=== PATIENT | female | born 1950 | race Caucasian/White ===

== ENCOUNTER 2022-04-20 18:45 | Observation (INO) ==
[2022-04-20 19:29] LABS: Basophils # (auto) 0.07 K/uL (0-0.2); Basophils % (auto) 0.8 %; Eosinophils # (auto) 0.28 K/uL (0-0.50); Eosinophils % (auto) 3.4 %; Hematocrit (blood only) 30.5 % (34.1-44.9); Hemoglobin 10.5 g/dl (12.0-16.0); Immature Granulocytes # (auto) 0.07 K/uL (0.00-0.02); Immature Granulocytes % (auto) 0.8 %; Lymphocytes # (auto) 2.04 K/uL (1.2-3.4); Lymphocytes % (auto) 24.4 %; Mean Corpuscular Hemoglobin 30.3 pg (25.0-34.0); Mean Corpuscular Hgb Conc 34.4 g/dL (32.0-36.0); Mean Corpuscular Volume 87.9 fL (80.0-100.0); Monocytes # (auto) 0.36 K/uL (0.24-0.82); Monocytes % (auto) 4.3 %; Neutrophils # (auto) 5.53 K/uL (1.4-6.5); Neutrophils % (auto) 66.3 %; Platelet Count 256 K/uL (130-400); RDW Coefficient of Variation 12.2 % (11.5-14.5); RDW Standard Deviation 38.7 fL (36.4-46.3); Red Blood Count 3.47 M/uL (3.93-5.22); White Blood Count 8.35 K/ul (4.8-10.8)
--- NOTE | 2022-04-20 19:38 | XRay Report ---
XR chest 1V portable HISTORY: WEAKNESS, shortness of breath WITH EXERTION COMPARISON: Chest 04/15/2015. FINDINGS: No pneumothorax. No pleural effusions. The heart is normal in size. No new focal lung conso lidations to suggest pneumonia. No evidence for pulmonary edema. A stable 4 mm nodular density within the right lung apex. This may represent a calcified granuloma given the long-term stability. IMPRESSION: No significant change compared to the prior study. No acute process. ACT 112: Negative or not required by law. Electronically signed by: Bryan Freeman M.D. 04/20/2022 7:36 PM
[2022-04-20 19:51] LABS: Alanine Aminotransferase 8 U/L (7-52); Albumin Level 3.5 gm/dl (3.4-5.0); Alkaline Phosphatase 60 U/L (34-104); Anion Gap 8 (3-11); Aspartate Aminotransferase 11 U/L (13-39); BUN Creatinine Ratio 13.3 (10-20); Bilirubin,Total 0.3 mg/dl (0.2-1.0); Blood Urea Nitrogen 43 mg/dl (6-23); Calcium 9.2 mg/dl (8.5-10.1); Carbon Dioxide 31 mmol/L (21-32); Chloride 94 mmol/L (98-107); Est GFR (Non-African American) 13.8 ml/min; Globulin 3.5 gm/dl (2.5-4.0); Glucose 260 mg/dl (70-99(Fasting)); Sodium 133 mmol/L (136-145)
[2022-04-20 21:24] LABS: Appearance Urine Clear (Clear); Bacteria Urine Automated Negative (Negative); Bilirubin Urine Negative (Negative); Blood Urine Negative (Negative); Color Urine Yellow; Epithelial Cell Urine Auto >30 /lpf (0-5); Glucose Urine UA Trace (Negative); Ketones Urine Negative (Negative); Leukocyte Esterase Urine Negative (Negative); Nitrite Urine Negative (Negative); Protein Urine 3+ (Negative); RBC Urine Automated 0-4 /hpf (0-4); Specific Gravity Urine 1.016 (1.000-1.030); Urobilinogen Urine Negative (Negative); pH Urine 5.5 (4.5-7.5)
[2022-04-20] MEDS ORDERED: ACETAMINOPHEN 1,000 MG/100 ML VIAL IV STA (22:11)
[2022-04-20] MEDS ORDERED: POLYETHYLENE (MIRALAX) 17 GM PACK PO PRN (22:40)
[2022-04-20] MEDS ORDERED: ASPIRIN CHEW 324 MG PO STA (22:41)
[2022-04-20] MEDS ORDERED: DOCUSATE SODIUM 100 MG CAP PO PRN (22:45)
[2022-04-20] MEDS ORDERED: MELATONIN 3 MG TAB PO PRN (22:45)
[2022-04-20] MEDS ORDERED: GLUCOSE 40% GEL 15 GM TUBE PO PRN (22:50)
[2022-04-20] MEDS ORDERED: DEXTROSE 50% 50 ML SYRINGE IV PRN (22:50)
[2022-04-20] MEDS ORDERED: CARBOHYDRATES FOR HYPOGLYCEMIA PO PRN (22:50)
[2022-04-20] MEDS ORDERED: GLUCAGON FOR INJ 1 MG VIAL SQ PRN (22:50)
[2022-04-20] MEDS ORDERED: GLUCOSE 10 TAB/TUBE PO PRN (22:50)
[2022-04-20] MEDS ORDERED: PHARMACY GLYCEMIC MGMT CONSULT PRN (22:50)
--- NOTE | 2022-04-20 23:31 | History & Physical Report ---
Date of Service April 20, 2022 Assessment & Plan (1) Chest pain: Plan: - with exertion and associated with dizziness - no history of FL or CVA - ECG without ischemic changes, mild troponin elevation in the setting of ESRD - currently without chest pain at rest - will cycle troponin - given risk factors may warrant stress test - Cardiology consulted - TTE ordered - telemetry monitoring (2) Lumbar radiculopathy: Plan: - had recent admission due to weakness and pain in RLE - seen by NSG and recommended rehab - improved at rehab but still with weakness - continue outpatient medications - will get PT/OT evaluation now that patient is here - sensation and strength intact bilaterally (3) DM type 2 (diabetes mellitus, type 2): Plan: - on insulin 70/30 at 25 units at home - BG 260 on admission - ESRD on PD - FSG AC+HS - started on 15 units lantus qhs - SSI for now - adjust insulin as needed - diabetic diet (4) Hyperlipidemia: Plan: - continue statin (5) Hypothyroid: Plan: - continue levothyroxine (6) Obesity (BMI 30-39.9): Plan: - BMP 38 - noted (7) Anxiety: Plan: - continue citalopram (8) Hypertension: Plan: - continue home bp meds (9) ESRD (end stage renal disease) on dialysis: Plan: - on PD at home during the day - renal consulted Plan DVT ppx: heparin Code Status: Full Code Dispo: med/surg with telemetry Ashish Quevedo MD Hospitalist Medicine Admission and Anticipated Discharge Date Admission Date: 04/20/2022 History of Present Illness Chief Complaint: chest pain Primary Care Provider: NO PCP The patient is a 71 year old woman with pmh HTN, HLD, DM2, lumbar radiculopathy, hypothyroidism, obesity, ESRD on PD who presented with multiple weeks of chest pain with exertion. She reports that she was recently in a rehab due to lumbar radiculopathy with right leg pain and weakness. She did well at rehab and was discharged home with continued home PT. She reports taht while at the rehab and at home, she experienced a squeezing, pressure like chest pain when walking, which is limited due to her right leg issues. She reports associated dizziness and possibly shortness of breath. She denies nausea or vomiting, diarrhea, abdominal pain, LOC. She denies a personal history of FL or CVA and denies any cardiac issues in her parents, although her son has some reported cardiac issues. She reports the pain and dizziness subside with few minutes of rest. Her functional capacity is limited and is able to walk about 20 feet before symptom onset. In the ED, vitals were unremarkable. Labs were significant for Cr 3 (on home PD), Na 133, BG 260. She was admitted to medicine for further work up. Allergies Allergy/AdvReac Type Severity Reaction Status Date / Time meperidine Allergy Intermediate hypotension-passed Verified 04/20/22 21:09 out Home Medications Medication Instructions Recorded Confirmed Type amlodipine 10 mg tablet 10 mg PO DAILY 04/20/22 04/20/22 History bumetanide 2 mg tablet 4 mg PO BID 04/20/22 04/20/22 History cholecalciferol (vitamin D3) 125 125 mcg PO DAILY 04/20/22 04/20/22 History mcg (5,000 unit) tablet (Vitamin D3) citalopram 10 mg tablet 10 mg PO DAILY 04/20/22 04/20/22 History diclofenac sodium 1 % topical gel 2 g topical QID 04/20/22 04/20/22 History docusate sodium 100 mg capsule 100 mg PO BID 04/20/22 04/20/22 History gabapentin 100 mg capsule 200 mg PO TID 04/20/22 04/20/22 History insulin aspar prt-insulin aspart 25 unit subcut BIDM 04/20/22 04/20/22 History 100 unit/mL (70-30) subcutaneous soln (Novolog Mix 70-30 U-100 Insuln) levothyroxine 50 mcg tablet 50 mcg PO DAILYBB 04/20/22 04/20/22 History melatonin 10 mg tablet 10 mg PO HS 04/20/22 04/20/22 History metoprolol succinate 50 mg 50 mg PO DAILY 04/20/22 04/20/22 History tablet,extended release 24 hr omeprazole 40 mg capsule,delayed 40 mg PO QAM 04/20/22 04/20/22 History release oxybutynin chloride 10 mg 10 mg PO DAILY 04/20/22 04/20/22 History tablet,extended release 24 hr polyethylene glycol 3350 17 17 g PO BID 04/20/22 04/20/22 History gram/dose oral powder (Miralax) rosuvastatin 20 mg tablet 20 mg PO DAILY 04/20/22 04/20/22 History tramadol 50 mg tablet 50 mg PO Q4H PRN Pain 04/20/22 04/20/22 History Past Med/Surg History Social History Smoking Status: Never smoker Feels Safe at Home: Yes Review of Systems Review of Systems: All systems reviewed & are unremarkable except as noted in Subjective Physical Exam Constitutional: WD/WN, vitals as above + obese and comfortable; no acute distress Eyes: PERRL, conjunctivae normal, anicteric sclerae ENMT: external ear and nose normal, oropharynx normal Neck: trachea midline, no thyromegaly Respiratory: normal respiratory effort, lungs clear to auscultation Cardiovascular: RRR, no murmur, no edema Gastrointestinal (Abdomen): normal bowel sounds, soft, nontender, no hepatosplenomegaly peritoneal dialysis catheter in LUQ, no erythema or drainage Musculoskeletal: no cyanosis or clubbing, extremities motor strength 5/5 Skin: no rashes, warm and dry Neurologic: patellar DTR's 2+ bilat, sensation intact and PERRL, EOMI, accommodation nl, no face palsy, no dysarthria Psychiatric: A+Ox3, euthymic affect Results & Data Results & Data ([facility]) Vital Signs (Past 12 Hours) Vital Signs Temp Pulse Pulse Resp BP BP Pulse Ox 04/20/22 23:13 66 18 126/66 98 04/20/22 22:00 68 18 148/83 H 97 04/20/22 20:34 69 12 142/75 H 95 04/20/22 18:49 37 C 77 22 145/77 H 96 O2 Del Method 04/20/22 23:13 Room Air 04/20/22 22:00 Room Air 04/20/22 20:34 Room Air 04/20/22 18:49 Room Air Laboratory Results Short CBC 04/20/22 Range/Units 19:16 WBC 8.35 (4.8-10.8) K/ul Hgb 10.5 L (12.0-16.0) g/dl Hct 30.5 L (34.1-44.9) % Plt Count 256 (130-400) K/uL BMP 04/20/22 19:16 Sodium 133 L Potassium 4.0 Chloride 94 L Carbon Dioxide 31 BUN 43 H Creatinine 3.24 H Glucose 260 H Calcium 9.2 Liver Function 04/20/22 Range/Units 19:16 Total Bilirubin 0.3 (0.2-1.0) mg/dl AST 11 L (13-39) U/L ALT 8 (7-52) U/L Alkaline Phosphatase 60 (34-104) U/L Albumin 3.5 (3.4-5.0) gm/dl Urine 04/20/22 Range/Units 20:47 Urine Color Yellow Urine Appearance Clear (Clear) Urine pH 5.5 (4.5-7.5) Ur Specific [place] 1.016 (1.000-1.030) Urine Protein 3+ H (Negative) Urine Glucose (UA) Trace H (Negative) Diagnostic Findings Chest X-Ray 04/20/22 18:56 XR chest 1V portable HISTORY: WEAKNESS, shortness of breath WITH EXERTION COMPARISON: Chest 04/15/2015. FINDINGS: No pneumothorax. No pleural effusions. The heart is normal in size. No new focal lung consolidations to suggest pneumonia. No evidence for pulmonary edema. A stable 4 mm nodular density within the right lung apex. This may represent a calcified granuloma given the long-term stability. IMPRESSION: No significant change compared to the prior study. No acute process. ACT 112: Negative or not required by law. Electronically signed by: Bryan Freeman M.D. 04/20/2022 7:36 PM Medications Administered Current Inpatient Medications Amlodipine Besylate (Amlodipine Besylate 5 Mg Tab) 10 mg PO QAM [facility] Stop: 05/21/22 08:59 Aspirin (Aspirin 81 Mg Ectab) 81 mg PO QAM [facility] Stop: 05/21/22 08:59 Bumetanide (Bumetanide 1 Mg Tab) 4 mg PO BID17 [facility] Stop: 05/21/22 08:59 Citalopram Hydrobromide (Citalopram 20 Mg Tab) 10 mg PO QAM [facility] Stop: 05/21/22 08:59 Dextrose (Dextrose 50% 50 Ml Syringe) 25 - 50 ml IV UD PRN; Protocol PRN Reason: Hypoglycemia Protocol Stop: 05/20/22 22:49 Docusate Sodium (Docusate Sodium 100 Mg Cap) 100 mg PO BID PRN PRN Reason: constipation Stop: 05/21/22 08:59 Gabapentin (Gabapentin 100 Mg Cap) 200 mg PO TID [facility] Stop: 05/21/22 08:59 Glucagon (Glucagon For Inj 1 Mg Vial) 1 mg SQ UD PRN; Protocol PRN Reason: Hypoglycemia Protocol Stop: 05/20/22 22:49 Glucose (Glucose 40% Gel 15 Gm Tube) 15 - 30 gm PO UD PRN; Protocol PRN Reason: Hypoglycemia Protocol Stop: 05/20/22 22:49 Glucose (Glucose 10 Tab/Tube) 4 - 8 tab PO UD PRN; Protocol PRN Reason: Hypoglycemia Treatment Stop: 05/20/22 22:49 Heparin Sodium (Porcine) (Heparin Sod 5,000 Unit/0.5 Ml Vial) 7,500 units SQ Q8 [facility] Stop: 05/21/22 05:59 Insulin Aspart (Insulin Aspart Per Unit) 0 units SC ACHS [facility] Stop: 05/21/22 07:29 Insulin Glargine (Lantus Per Unit Charge) 15 units SQ HS [facility] Stop: 05/21/22 20:59 Levothyroxine Sodium (Levothyroxine Sodium 50 Mcg Tablet) 50 mcg PO DAILYBB [facility] Stop: 05/21/22 06:29 Melatonin (Melatonin 3 Mg Tab) 9 mg PO HS PRN PRN Reason: Sleep Stop: 05/20/22 22:44 Metoprolol Succinate (Metoprolol Succ 50mg Ext Rel Tab) 50 mg PO QAM [facility] Stop: 05/21/22 08:59 Miscellaneous (Carbohydrates For Hypoglycemia ) 15 - 30 gm PO UD PRN PRN Reason: Hypoglycemia Protocol Stop: 05/20/22 22:49 Miscellaneous Information (Pharmacy Glycemic Mgmt Consult) 1 each N/A UD PRN PRN Reason: Consult Stop: 05/20/22 22:49 Oxybutynin Chloride (Oxybutynin Chloride Xl 5 Mg Tabcr) 10 mg PO QAM [facility] Stop: 05/21/22 08:59 Polyethylene Glycol (Polyethylene (Miralax) 17 Gm Pack) 17 gm PO DAILY PRN PRN Reason: Constipation Stop: 05/20/22 22:39 Rosuvastatin Calcium (Rosuvastatin Calcium 20 Mg Tab) 20 mg PO QAM [facility] Stop: 05/21/22 08:59 Sennosides (Senna 8.6 Mg Tab) 17.2 mg PO QAM [facility] Stop: 05/21/22 08:59 Code Status & VTE Plan Code Status Full Code VTE Prophylaxis Plan VTE Prophylaxis will be ordered: Yes
--- NOTE | 2022-04-20 23:43 | Emergency Department Note ---
Impression & Plan Exertional chest pain, ESRD (end stage renal disease) on dialysis, Dyspnea on exertion ED Provider Note NAME: ANNETTE TRUJILLO AGE: 71 SEX: F ARRIVES VIA: Walk-In INFORMANT: Patient ED PROVIDER(S): Isma Bar MD CHIEF COMPLAINT: Exertional chest pain PLAN: Disposition: Admit MEDICAL DECISION MAKING: The patient is a pleasant 71-year-old woman with a past medical history of end- stage renal disease on home peritoneal dialysis, type 2 diabetes, hyperlipidemia, hypertension who presents to the emergency department via walk- in accompanied by family for evaluation of exertional chest pain and dyspnea that she reports has been ongoing for the past 2 weeks and fairly consistent in the setting of having less frequent symptoms when she was in rehab recently for back pain and ambulatory dysfunction. She denies any cough, congestion, fevers, GI or symptoms. She reports she feels bloated in her abdomen at times but reports she does not weigh herself regularly and so cannot say with confidence whether she is retaining fluid or not. On arrival the patient is chronically ill-appearing but no acute distress, afebrile stable vital signs. Exam is otherwise unremarkable. EKG without overt acute ischemia. Chest x-ray negative for acute c ardiopulmonary process. WBC and platelets within normal limits. H/H 10.5/30.5 without recent values for comparison. Chemistry without metabolic acidosis. Creatinine 3.2 in the setting of patient's known end-stage renal disease. LFTs without significant abnormality. High-sensitivity troponin 6.8, within normal limits. UA without convincing evidence of infection. Given patient's report of consistent exertional chest pain reasonable to proceed with admission for further cardiac evaluation. Patient was given full dose aspirin. Case was discussed with Dr. Quevedo, [facility] hospitalist, who will evaluate the patient for admission. Triage Nursing notes reviewed and agree them. Prior medical records reviewed Vital Signs: reviewed and remarkable for no significant abnormalities Differential diagnosis: Cardiac ischemia, aortic dissection, pulmonary embolism, pneumothorax, pneumonia, pericarditis, myocarditis, esophageal rupture, GERD, cholecystitis, pancreatitis, musculoskeletal, as well as other pathologies. ER treatment provided: See below. Diagnostics interpreted by me: ECG: Normal sinus rhythm, 76 bpm, nonspecific ST and T wave abnormality, no overt ST elevation or depression, QTC 470, QRS 90 Cardiac Monitoring: An order for continuous cardiac monitoring was placed and demonstrated Normal sinus rhythm, 76 bpm, no ectopy. Laboratory studies: See below Imaging studies: See below Consultation(s): Dr. Quevedo, [facility] hospitalist. HPI: The patient is a pleasant 71-year-old woman with a past medical history of end-stage renal disease on home peritoneal dialysis, type 2 diabetes, hyperlipidemia, hypertension who presents to the emergency department via walk- in accompanied by family for evaluation of exertional chest pain and dyspnea that she reports has been ongoing for the past 2 weeks and fairly consistent in the setting of having less frequent symptoms when she was in rehab recently for back pain and ambulatory dysfunction. She denies any cough, congestion, fevers, GI or symptoms. She reports she feels bloated in her abdomen at times but reports she does not weigh herself regularly and so cannot say with confidence whether she is retaining fluid or not. ROS: See above HPI for pertinent positives & negatives. A total of 10 systems reviewed and were otherwise negative. VITALS:See Below PHYSICAL EXAMINATION: GENERAL: Awake, alert, chronically ill-appearing, in no distress HENT: Normocephalic, atraumatic. Oropharynx unremarkable. EYES: Normal conjunctiva. Sclera non-icteric. NECK: Supple. No nuchal rigidity. FROM. No JVD. RESPIRATORY: Clear to auscultation. CARDIAC: Regular rate, normal rhythm. Extremities warm and well perfused. Pulses equal. ABDOMEN: Soft, non-distended. No tenderness to palpation. No rebound or guarding. No masses. RECTAL: Deferred. MUSCULOSKELETAL: Chest examination reveals no tenderness. The back is symmetrical on inspection without obvious abnormality. There is no CVA tenderness to palpation. No joint edema. LOWER EXTREMITIES: Calves are equal size bilaterally and non-tender. Scant BLE edema. No discoloration. NEURO: Normal sensorium. No sensory or motor deficits noted. SKIN: No rash or jaundice noted. Isma Bar MD Past Med/Surg History Medical History Diabetic neuropathy DM type 2 (diabetes mellitus, type 2) ESRD (end stage renal disease) on dialysis GERD (gastroesophageal reflux disease) Hyperlipidemia Hypertension Lumbar radiculopathy Peritoneal dialysis catheter in place Family History Other Family history non-contributory Social History Smoking Status: Never smoker Feels Safe at Home: Yes Allergies Allergies Allergy/AdvReac Type Severity Reaction Status Date / Time meperidine Allergy Intermediate hypotension-passed Verified 04/20/22 21:09 out Home Meds Home Medications Medication Instructions Recorded Confirmed amlodipine 10 mg tablet 10 mg PO DAILY 04/20/22 04/20/22 bumetanide 2 mg tablet 4 mg PO BID 04/20/22 04/20/22 cholecalciferol (vitamin D3) 125 125 mcg PO DAILY 04/20/22 04/20/22 mcg (5,000 unit) tablet (Vitamin D3) citalopram 10 mg tablet 10 mg PO DAILY 04/20/22 04/20/22 diclofenac sodium 1 % topical gel 2 g topical QID 04/20/22 04/20/22 docusate sodium 100 mg capsule 100 mg PO BID 04/20/22 04/20/22 gabapentin 100 mg capsule 200 mg PO TID 04/20/22 04/20/22 insulin aspar prt-insulin aspart 25 unit subcut BIDM 04/20/22 04/20/22 100 unit/mL (70-30) subcutaneous soln (Novolog Mix 70-30 U-100 Insuln) levothyroxine 50 mcg tablet 50 mcg PO DAILYBB 04/20/22 04/20/22 melatonin 10 mg tablet 10 mg PO HS 04/20/22 04/20/22 metoprolol succinate 50 mg 50 mg PO DAILY 04/20/22 04/20/22 tablet,extended release 24 hr omeprazole 40 mg capsule,delayed 40 mg PO QAM 04/20/22 04/20/22 release oxybutynin chloride 10 mg 10 mg PO DAILY 04/20/22 04/20/22 tablet,extended release 24 hr polyethylene glycol 3350 17 17 g PO BID 04/20/22 04/20/22 gram/dose oral powder (Miralax) rosuvastatin 20 mg tablet 20 mg PO DAILY 04/20/22 04/20/22 tramadol 50 mg tablet 50 mg PO Q4H PRN Pain 04/20/22 04/20/22 Results & Data (ED) Vital Signs Vital Signs - 24 hr 04/20/22 18:49 04/20/22 20:34 04/20/22 22:00 Temperature 37 C Temperature Source Temporal Artery Scan Pulse Rate 77 Pulse Rate [Finger] 69 68 Respiratory Rate 22 12 18 Respiratory Effort / Characteristics Non-Labored Spontaneous Respiratory Depth Normal Respiratory Pattern Regular Blood Pressure 145/77 H Blood Pressure [Right Arm] 142/75 H 148/83 H Blood Pressure Mean 99 Blood Pressure Mean [Right Arm] 97 104 Pulse Oximetry 96 95 97 Oxygen Delivery Method Room Air Room Air Room Air Sepsis Recent Fever Within 48 Hours No Sepsis New/Unexplained Change in Mental Status No Sepsis Action Taken by Nursing No Action Required Laboratory Data Attestation: I reviewed the patient's lab results. Result diagrams: 04/20/22 19:16 04/20/22 19:16 Lab Results 04/20/22 04/20/22 04/20/22 Range/Units 19:16 19:16 19:16 WBC 8.35 (4.8-10.8) K/ul RBC 3.47 L (3.93-5.22) M/uL Hgb 10.5 L (12.0-16.0) g/dl Hct 30.5 L (34.1-44.9) % MCV 87.9 (80.0-100.0) fL MCH 30.3 (25.0-34.0) pg MCHC 34.4 (32.0-36.0) g/dL RDW Std Deviation 38.7 (36.4-46.3) fL RDW Coeff of [place] 12.2 (11.5-14.5) % Plt Count 256 (130-400) K/uL MPV 10.0 (9.4-12.3) fL Immature Gran % (Auto) 0.8 % Neut % (Auto) 66.3 % Lymph % (Auto) 24.4 % [place] % (Auto) 4.3 % Eos % (Auto) 3.4 % Baso % (Auto) 0.8 % Neut # (Auto) 5.53 (1.4-6.5) K/uL Lymph # (Auto) 2.04 (1.2-3.4) K/uL [place] # (Auto) 0.36 (0.24-0.82) K/uL Eos # (Auto) 0.28 (0-0.50) K/uL Baso # (Auto) 0.07 (0-0.2) K/uL Immature Gran # (Auto) 0.07 H (0.00-0.02) K/uL Sodium 133 L (136-145) mmol/L Potassium 4.0 (3.5-5.1) mmol/L Chloride 94 L (98-107) mmol/L Carbon Dioxide 31 (21-32) mmol/L Anion Gap 8 (3-11) BUN 43 H (6-23) mg/dl Creatinine 3.24 H (0.6-1.2) mg/dl Est Cr Clr Drug Dosing Not Reportable Est GFR ( Amer) 16.0 ml/min Est GFR (Non-Af Amer) 13.8 ml/min BUN/Creatinine Ratio 13.3 (10-20) Glucose 260 H (70-99(Fasting)) mg/dl Calcium 9.2 (8.5-10.1) mg/dl Total Bilirubin 0.3 (0.2-1.0) mg/dl AST 11 L (13-39) U/L ALT 8 (7-52) U/L Alkaline Phosphatase 60 (34-104) U/L Troponin I High Sens 6.8 (0-14) pg/ml Total Protein 7.0 (6.0-8.3) gm/dl Albumin 3.5 (3.4-5.0) gm/dl Globulin 3.5 (2.5-4.0) gm/dl Albumin/Globulin Ratio 1.0 (0.9-2) Urine Color Urine Appearance (Clear) Urine pH (4.5-7.5) Ur Specific [place] (1.000-1.030) Urine Protein (Negative) Urine Glucose (UA) (Negative) Urine Ketones (Negative) Urine Blood (Negative) Urine Nitrite (Negative) Urine Bilirubin (Negative) Urine Urobilinogen (Negative) Ur Leukocyte Esterase (Negative) Urine WBC (Auto) (0-5) /hpf Urine RBC (Auto) (0-4) /hpf U Hyaline Cast (Auto) (0-5) /lpf U Epithel Cells (Auto) (0-5) /lpf Urine Bacteria (Auto) (Negative) 04/20/22 Range/Units 20:47 WBC (4.8-10.8) K/ul RBC (3.93-5.22) M/uL Hgb (12.0-16.0) g/dl Hct (34.1-44.9) % MCV (80.0-100.0) fL MCH (25.0-34.0) pg MCHC (32.0-36.0) g/dL RDW Std Deviation (36.4-46.3) fL RDW Coeff of [place] (11.5-14.5) % Plt Count (130-400) K/uL MPV (9.4-12.3) fL Immature Gran % (Auto) % Neut % (Auto) % Lymph % (Auto) % [place] % (Auto) % Eos % (Auto) % Baso % (Auto) % Neut # (Auto) (1.4-6.5) K/uL Lymph # (Auto) (1.2-3.4) K/uL [place] # (Auto) (0.24-0.82) K/uL Eos # (Auto) (0-0.50) K/uL Baso # (Auto) (0-0.2) K/uL Immature Gran # (Auto) (0.00-0.02) K/uL Sodium (136-145) mmol/L Potassium (3.5-5.1) mmol/L Chloride (98-107) mmol/L Carbon Dioxide (21-32) mmol/L Anion Gap (3-11) BUN (6-23) mg/dl Creatinine (0.6-1.2) mg/dl Est Cr Clr Drug Dosing Est GFR ( Amer) ml/min Est GFR (Non-Af Amer) ml/min BUN/Creatinine Ratio (10-20) Glucose (70-99(Fasting)) mg/dl Calcium (8.5-10.1) mg/dl Total Bilirubin (0.2-1.0) mg/dl AST (13-39) U/L ALT (7-52) U/L Alkaline Phosphatase (34-104) U/L Troponin I High Sens (0-14) pg/ml Total Protein (6.0-8.3) gm/dl Albumin (3.4-5.0) gm/dl Globulin (2.5-4.0) gm/dl Albumin/Globulin Ratio (0.9-2) Urine Color Yellow Urine Appearance Clear (Clear) Urine pH 5.5 (4.5-7.5) Ur Specific [place] 1.016 (1.000-1.030) Urine Protein 3+ H (Negative) Urine Glucose (UA) Trace H (Negative) Urine Ketones Negative (Negative) Urine Blood Negative (Negative) Urine Nitrite Negative (Negative) Urine Bilirubin Negative (Negative) Urine Urobilinogen Negative (Negative) Ur Leukocyte Esterase Negative (Negative) Urine WBC (Auto) 1-5 (0-5) /hpf Urine RBC (Auto) 0-4 (0-4) /hpf U Hyaline Cast (Auto) 1-5 (0-5) /lpf U Epithel Cells (Auto) >30 H (0-5) /lpf Urine Bacteria (Auto) Negative (Negative) Administered Medications Insulin Aspart (Insulin Aspart Per Unit) 0 units SC Q6 [facility] Stop: 05/21/22 01:29 Last Admin: 04/21/22 02:19 Dose: 1 units Documented By: MALLORY Co-signed By: AW Discontinued Medications Acetaminophen (Acetaminophen 325 Mg Tab) Confirm Administered Dose 650 mg .ROUTE .STK-MED ONE Stop: 04/21/22 00:52 Last Admin: 04/21/22 00:55 Dose: 650 mg Documented By: MALLORY Aspirin (Aspirin Chew 324 Mg) 324 mg PO NOW STA Stop: 04/20/22 22:42 Last Admin: 04/20/22 22:51 Dose: 324 mg Documented By: LESA [facility] 1,000 mg in 100 mls @ 400 mls/hr IV NOW STA Stop: 04/20/22 22:25 Last Infusion: 04/20/22 22:43 Dose: 0 mls/hr Documented By: Admin: 04/20/22 22:18 Dose: 400 mls/hr Documented By: LESA Insulin Glargine (Lantus Per Unit Charge) 15 units SQ ONE ONE Stop: 04/21/22 01:31 Last Admin: 04/21/22 02:19 Dose: 15 units Documented By: MALLORY Co-signed By: MERCY Imaging Data Radiologist's Impression: Chest X-Ray 04/20/22 18:56 XR chest 1V portable HISTORY: WEAKNESS, shortness of breath WITH EXERTION COMPARISON: Chest 04/15/2015. FINDINGS: No pneumothorax. No pleural effusions. The heart is normal in size. No new focal lung consolidations to suggest pneumonia. No evidence for pulmonary edema. A stable 4 mm nodular density within the right lung apex. This may repr esent a calcified granuloma given the long-term stability. IMPRESSION: No significant change compared to the prior study. No acute process. ACT 112: Negative or not required by law. Electronically signed by: Bryan Freeman M.D. 04/20/2022 7:36 PM Discharge Plan Visit Data Chief Complaint: Illness Stated Complaint: WEAKNESS, SOB WITH EXERTION ED Provider: Isma Bar Discharge Problem: Exertional chest pain, ESRD (end stage renal disease) on dialysis, Dyspnea on exertion Patient Disposition: Admitted As Inpatient Discharge Instructions Interventions: ED Discharge Assessment Last Done: 04/21/22 02:20
[2022-04-21] MEDS ORDERED: ACETAMINOPHEN 325 MG TAB ONE (00:51)
[2022-04-21] MEDS ORDERED: LANTUS PER UNIT CHARGE SQ ONE ×2 (01:30→16:30)
[2022-04-21] MEDS: INSULIN ASPART PER UNIT SC SCH ×5 (02:19→21:04)
[2022-04-21 04:52] LABS: Basophils # (auto) 0.07 K/uL (0-0.2); Basophils % (auto) 0.9 %; Eosinophils # (auto) 0.28 K/uL (0-0.50); Eosinophils % (auto) 3.5 %; Hematocrit (blood only) 27.4 % (34.1-44.9); Hemoglobin 9.6 g/dl (12.0-16.0); Immature Granulocytes # (auto) 0.04 K/uL (0.00-0.02); Immature Granulocytes % (auto) 0.5 %; Lymphocytes # (auto) 2.23 K/uL (1.2-3.4); Lymphocytes % (auto) 27.9 %; Mean Corpuscular Hemoglobin 30.6 pg (25.0-34.0); Mean Corpuscular Volume 87.3 fL (80.0-100.0); Mean Platelet Volume 9.9 fL (9.4-12.3); Monocytes # (auto) 0.46 K/uL (0.24-0.82); Monocytes % (auto) 5.8 %; Neutrophils # (auto) 4.91 K/uL (1.4-6.5); Neutrophils % (auto) 61.4 %; Platelet Count 213 K/uL (130-400); RDW Standard Deviation 38.5 fL (36.4-46.3); Red Blood Count 3.14 M/uL (3.93-5.22); White Blood Count 7.99 K/ul (4.8-10.8)
[2022-04-21 05:15] LABS: Albumin Level 3.1 gm/dl (3.4-5.0); BUN Creatinine Ratio 13.1 (10-20); Bilirubin,Total 0.2 mg/dl (0.2-1.0); Chol HDL Ratio 4.4 (0-5); Creatinine Clr Calc Pharmacy 18.3 ml/min; Est GFR (African American) 16.2 ml/min; Magnesium 1.9 mg/dl (1.7-2.4); Phosphorus 4.2 mg/dl (2.5-4.9); Potassium 4.1 mmol/L (3.5-5.1); Total Protein 6.1 gm/dl (6.0-8.3)
[2022-04-21] MEDS: HEPARIN SOD 5,000 UNIT/0.5 ML VIAL SQ SCH ×3 (06:35→22:39)
[2022-04-21] MEDS: LEVOTHYROXINE SODIUM 50 MCG TABLET PO SCH (06:36)
[2022-04-21 07:20] LABS: Estimated Average Glucose 223 mg/dl; Hemoglobin A1C 9.4 % (4.5-5.6)
--- NOTE | 2022-04-21 07:37 | Nephrology Consultation ---
Date of Consultation April 21, 2022 Assessment & Plan (1) ESRD (end stage renal disease) on dialysis: on CCPD for 4 x 2L cycles over 8hr all 2.5% w/ no LBF, no MDE; moved recently to this area and transitioning between units; dialyzed most recently w/ Dr Almanzar, [facility] unit [facility] [place]. wishes to join [facility] for PD. >plan to resume PT this evening - orders in -continue her bumex OP dose -continue bowel regimen History of Present Illness Reason for Consultation: ESRD on PD Requesting Physician: Dr Reid Attending Physician: Tien Glez MD History of Present Illness 71 y/o F whom I'm asked to see for dialysis needs is under observation for evaluation of several weeks of exertional chest pain and exertional dyspnea. PMH includes ESRD on PD, HTN, DM, lumbar radiculopathy/RLE weakness, hypothyroid, class 2 obesity, HL, per her report mild cognitive impairment/memory challenges. Home dialysis unit/ rx as below. Admitted recently to rehab for RLE pain/weakness related to back issues> d/c home w/ PT. Tells me she has dypsnea and vertigo sx w/ waking from living room to bedroom at home. nonradiating squeezing substernal chest pain not affected by activity. non radiating. moved her bowels w/o issue this am. No n/v/abd pain/diarrhea, no falls, no palpitations, no edema. No change in voiding habits. Dialysis has been going well; no issues; she does her treatments by day usually b/c she wants family nearby if there are alarms Cardiology evaluated the patient and plans TTE and likely OP stress test; her troponins negative x 2 and no ischemic changes on ECG. Allergies Allergy/AdvReac Type Severity Reaction Status Date / Time meperidine Allergy Intermediate hypotension-passed Verified 04/20/22 21:09 out Home Medications Medication Instructions Recorded Confirmed Type amlodipine 10 mg tablet 10 mg PO DAILY 04/20/22 04/20/22 History bumetanide 2 mg tablet 4 mg PO BID 04/20/22 04/20/22 History cholecalciferol (vitamin D3) 125 125 mcg PO DAILY 04/20/22 04/20/22 History mcg (5,000 unit) tablet (Vitamin D3) citalopram 10 mg tablet 10 mg PO DAILY 04/20/22 04/20/22 History diclofenac sodium 1 % topical gel 2 g topical QID 04/20/22 04/20/22 History docusate sodium 100 mg capsule 100 mg PO BID 04/20/22 04/20/22 History gabapentin 100 mg capsule 200 mg PO TID 04/20/22 04/20/22 History insulin aspar prt-insulin aspart 25 unit subcut BIDM 04/20/22 04/20/22 History 100 unit/mL (70-30) subcutaneous soln (Novolog Mix 70-30 U-100 Insuln) levothyroxine 50 mcg tablet 50 mcg PO DAILYBB 04/20/22 04/20/22 History melatonin 10 mg tablet 10 mg PO HS 04/20/22 04/20/22 History metoprolol succinate 50 mg 50 mg PO DAILY 04/20/22 04/20/22 History tablet,extended release 24 hr omeprazole 40 mg capsule,delayed 40 mg PO QAM 04/20/22 04/20/22 History release oxybutynin chloride 10 mg 10 mg PO DAILY 04/20/22 04/20/22 History tablet,extended release 24 hr polyethylene glycol 3350 17 17 g PO BID 04/20/22 04/20/22 History gram/dose oral powder (Miralax) rosuvastatin 20 mg tablet 20 mg PO DAILY 04/20/22 04/20/22 History tramadol 50 mg tablet 50 mg PO Q4H PRN Pain 04/20/22 04/20/22 History Patient History Medical History Diabetic neuropathy DM type 2 (diabetes mellitus, type 2) ESRD (end stage renal disease) on dialysis GERD (gastroesophageal reflux disease) Hyperlipidemia Hypertension Lumbar radiculopathy Peritoneal dialysis catheter in place Surgical History (Updated 04/21/22 @ 18:14 by Bozena Farias MD, PhD) 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 Family History Other Family history non-contributory Social History Smoking Status: Never smoker Hx Alcohol Use: No Hx Substance Use: No Preferred Language: Occitan Communication Ability: Effective Hair Tinter Required: No Beliefs That Will Affect Care: None marital status: / Current Living Situation: Family Current Living Situation Comment: son and daughter in law Other Information That Helps Us Care for You: No Feels Safe at Home: Yes Safety Concerns: Feels Safe At This Time Assistive Devices: Scooter/Electric Scooter, Walker and Wheelchair Review of Systems Review of Systems: All systems reviewed & are unremarkable except as noted in HPI & below Physical Exam Constitutional: well developed and well nourished Eyes: EOM intact bilaterally ENMT: Ears: no external ear abnormality Nose: no external nose abnormality Mouth: + dry oral mucous membranes Neck: no nuchal rigidity Respiratory: normal respiratory effort Auscultation: + diminished lung sounds Cardiovascular: Rate/Rhythm: regular rate and regular rhythm Extremities: + edema (trace) Gastrointestinal (Abdomen): Inspection/Auscultation: abdomen normal to inspection (PD catheter present) and normal bowel sounds P ercussion/Palpation: abdomen soft; abdomen nontender Musculoskeletal: Extremities: strength 5/5 throughout Skin: no rashes, warm and dry (remote scars R nasal orbit and palate) Neurologic: babcock, fluent speech, no tremor Psychiatric: Orientation: oriented to person and oriented to place Speech: normal rate/rhythm/volume of speech Insight: + limited insight Results & Data ([facility]) Vital Signs (Past 12 Hours) Vital Signs Temp Pulse Resp BP Pulse Ox O2 Del Method 04/21/22 05:27 37.0 C 68 14 164/76 H 97 Room Air 04/21/22 02:23 97 Room Air 04/21/22 02:00 66 48 H 148/109 H 97 Room Air 04/20/22 23:13 66 18 126/66 98 Room Air 04/20/22 22:00 68 18 148/83 H 97 Room Air 04/20/22 20:34 69 12 142/75 H 95 Room Air Laboratory Results 04/21/22 04:36 04/21/22 04:36 Diagnostic Findings cxr > No pneumothorax. No pleural effusions. The heart is normal in size. No new focal lung consolidations to suggest pneumonia. No evidence for pulmonary edema. A stable 4 mm nodular density within the right lung apex. This may represent a calcified granuloma given the long-term stability.
--- NOTE | 2022-04-21 08:52 | Cardiology Consultation ---
Date of Consultation April 21, 2022 Assessment & Plan (1) Exertional chest pain: (2) Dyspnea on exertion: (3) Hypertension: (4) Hyperlipidemia: (5) DM type 2 (diabetes mellitus, type 2): (6) ESRD (end stage renal disease) on dialysis: Plan 71-year-old female with multiple cardiac risk factors referred for hospitalization, evaluation of exertional chest pain associated with shortness of breath and dizziness. EKG without acute change. High-sensitivity troponin I negative x2. Chest x-ray without acute process. Blood pressure moderately elevated, currently 171/84. Patient unable to ambulate adequately for exercise stress testing. Recommendations: Serial cardiac enzymes Resting echocardiography Add aspirin 81 mg/day Add Imdur 30 mg daily in the morning Switch rosuvastatin 20 mg/day to atorvastatin 40 mg/day, RE: end-stage renal dysfunction Continue metoprolol and amlodipine Pharmacological (Lexiscan) nuclear stress test, likely as an outpatient Further recommendations pending the above, evaluation by Dr. Angeles, ongoing course. Supervising Physician Co-Signing Physician Notes Patient seen and examined with Tae Navarro PA-C. Agree with findings and assessment as above. 2D echocardiogram is unremarkable. Agree with above recommendations and treating for hypertensive urgency at this time. History of Present Illness Reason for Consultation: Chest pain Requesting Physician: Emy Attending Physician: Newton History of Present Illness Ms. Mai Richardson (aka Mai "Asya" Amarilys Mathias with [facility] ) is a 71-year-old female who is being seen today for evaluation of exertional chest pain. The patient notes being assigned a Weight Recorder following hospitalization and a rehabilitation stay. She notes passing along information to the director of casework department about experiencing chest tightness when walking to bed at night that is associated with shortness of breath and dizziness. "Really more dizziness than anything." Notes being very inactive due to right leg weakness and the right knee giving out resulting in multiple falls. She notes her walking to bed at night is her most strenuous activity. Notes having had similar symptoms of chest tightness and shortness of breath leading cardiac work-up including pharmacological stress testing in 2014 without evidence of pharmacologically induced myocardial ischemia. Work-up in the ER included a EKG revealing normal sinus rhythm with nonspecific ST-T wave changes, QTC 470 ms. High-sensitivity troponin I negative x2 at 6.8 and 7.3 PG/mL. Chest x-ray without acute process. Resting/nocturnal chest pain. No palpitations. No resting dyspnea. No orthopnea or PND to accompany lower extremity peripheral edema. No near syncope or syncope. No fevers or chills. No melena or hemato chezia. Patient denies history of CAD, GA, CHF, arrhythmia, rheumatic fever, or scarlet fever. 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 Father with leukemia. Sister with uterine cancer. Sister with breast cancer. Brother with ? CAD. Multiple aunts with ischemic heart disease. Social History: Lifelong non-smoker. No significant alcohol. No illegal drug use. 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 Notes being x2, losing both husbands within a year. Allergies Allergy/AdvReac Type Severity Reaction Status Date / Time meperidine Allergy Intermediate hypotension-passed Verified 04/20/22 21:09 out Home Medications Medication Instructions Recorded Confirmed Type amlodipine 10 mg tablet 10 mg PO DAILY 04/20/22 04/20/22 History bumetanide 2 mg tablet 4 mg PO BID 04/20/22 04/20/22 History cholecalciferol (vitamin D3) 125 125 mcg PO DAILY 04/20/22 04/20/22 History mcg (5,000 unit) tablet (Vitamin D3) citalopram 10 mg tablet 10 mg PO DAILY 04/20/22 04/20/22 History diclofenac sodium 1 % topical gel 2 g topical QID 04/20/22 04/20/22 History docusate sodium 100 mg capsule 100 mg PO BID 04/20/22 04/20/22 History gabapentin 100 mg capsule 200 mg PO TID 04/20/22 04/20/22 History insulin aspar prt-insulin aspart 25 unit subcut BIDM 04/20/22 04/20/22 History 100 unit/mL (70-30) subcutaneous soln (Novolog Mix 70-30 U-100 Insuln) levothyroxine 50 mcg tablet 50 mcg PO DAILYBB 04/20/22 04/20/22 History melatonin 10 mg tablet 10 mg PO HS 04/20/22 04/20/22 History metoprolol succinate 50 mg 50 mg PO DAILY 04/20/22 04/20/22 History tablet,extended release 24 hr omeprazole 40 mg capsule,delayed 40 mg PO QAM 04/20/22 04/20/22 History release oxybutynin chloride 10 mg 10 mg PO DAILY 04/20/22 04/20/22 History tablet,extended release 24 hr polyethylene glycol 3350 17 17 g PO BID 04/20/22 04/20/22 History gram/dose oral powder (Miralax) rosuvastatin 20 mg tablet 20 mg PO DAILY 04/20/22 04/20/22 History tramadol 50 mg tablet 50 mg PO Q4H PRN Pain 04/20/22 04/20/22 History Patient History Medical History Diabetic neuropathy DM type 2 (diabetes mellitus, type 2) ESRD (end stage renal disease) on dialysis GERD (gastroesophageal reflux disease) Hyperlipidemia Hypertension Lumbar radiculopathy Peritoneal dialysis catheter in place Family History Other Family history non-contributory Social History Smoking Status: Never smoker Hx Alcohol Use: No Hx Substance Use: No Preferred Language: Uzbek Communication Ability: Effective Surface Plate Finisher Required: No Beliefs That Will Affect Care: None marital status: / Current Living Situation: Family Current Living Situation Comment: son and daughter in law Other Information That Helps Us Care for You: No Feels Safe at Home: Yes Safety Concerns: Feels Safe At This Time Assistive Devices: Scooter/Electric Scooter, Walker and Wheelchair Review of Systems Review of Systems: Review of Systems: Constitutional: No fevers, sweats, or night chills. Eyes: No amaurosis fugax HENT: Hard of hearing Pulmonary: Asthma. Cardiac: See above. GI/Abd: GERD. No dysphagia. No melena or hematochezia. : CKD, on peritoneal dialysis Vascular: No history of carotid disease. No history of AAA. Hematologic: No coagulation disorder. Musculoskeletal: Chronic back pain. Right knee pain. Right lower extremity weakness. Skin: No rash. Neurologic: See above. Female : Incontinence. Endocrine: DM. Complete Review of Systems is as stated above, negative, noncontributory Physical Exam Physical Exam: General: A&Ox3. NAD. Hard of hearing HENT: Normocephalic. Atraumatic. Eyes: PER. Conjunctiva pink, sclera clear. Neck: Transmitted systolic murmur versus bilateral carotid bruits. No JVD. No HJR. Heart: RRR. Grade 2 systolic ejection murmur heard throughout the precordium. No rub. PMI is nondisplaced. Lungs: Clear to auscultation. Abdomen: Peritoneal dialysis catheter. +BS. Soft. Nontender. No masses or organomegaly. Extremities: Minimal edema, nonpitting. No clubbing. No cyanosis. Limited neurological examination is without focal deficits. Pulses: radial=2/4, posterior tibial=2/4. Results & Data ([facility]) Vital Signs (Past 12 Hours) Vital Signs Temp Pulse Resp BP Pulse Ox O2 Del Method 04/21/22 07:43 70 18 171/84 H 97 Room Air 04/21/22 05:27 37.0 C 68 14 164/76 H 97 Room Air 04/21/22 02:23 97 Room Air 04/21/22 02:00 66 48 H 148/109 H 97 Room Air 04/20/22 23:13 66 18 126/66 98 Room Air 04/20/22 22:00 68 18 148/83 H 97 Room Air Laboratory Results Cardiac Enzymes 04/20/22 04/20/22 04/21/22 Range/Units 19:16 19:16 00:18 AST 11 L (13-39) U/L Troponin I High Sens 6.8 7.3 (0-14) pg/ml 04/21/22 Range/Units 04:36 AST 11 L (13-39) U/L Troponin I High Sens (0-14) pg/ml Lipids 04/21/22 Range/Units 04:36 Triglycerides 263 H (0-150) mg/dl Cholesterol 141 (0-200) mg/dl HDL Cholesterol 32 mg/dl Cholesterol/HDL Ratio 4.4 (0-5) CBC 04/20/22 04/21/22 Range/Units 19:16 04:36 WBC 8.35 7.99 (4.8-10.8) K/ul RBC 3.47 L 3.14 L (3.93-5.22) M/uL Hgb 10.5 L 9.6 L (12.0-16.0) g/dl Hct 30.5 L 27.4 L (34.1-44.9) % Plt Count 256 213 (130-400) K/uL Neut # (Auto) 5.53 4.91 (1.4-6.5) K/uL Lymph # (Auto) 2.04 2.23 (1.2-3.4) K/uL Page # (Auto) 0.36 0.46 (0.24-0.82) K/uL Eos # (Auto) 0.28 0.28 (0-0.50) K/uL Baso # (Auto) 0.07 0.07 (0-0.2) K/uL Comprehensive Metabolic Panel 04/20/22 04/21/22 Range/Units 19:16 04:36 Sodium 133 L 136 (136-145) mmol/L Potassium 4.0 4.1 (3.5-5.1) mmol/L Chloride 94 L 98 (98-107) mmol/L Carbon Dioxide 31 31 (21-32) mmol/L BUN 43 H 42 H (6-23) mg/dl Creatinine 3.24 H 3.20 H (0.6-1.2) mg/dl Glucose 260 H 95 (70-99(Fasting)) mg/dl Calcium 9.2 9.0 (8.5-10.1) mg/dl AST 11 L 11 L (13-39) U/L ALT 8 8 (7-52) U/L Alkaline Phosphatase 60 47 (34-104) U/L Total Protein 7.0 6.1 (6.0-8.3) gm/dl Albumin 3.5 3.1 L (3.4-5.0) gm/dl Intake and Output 04/20/22 04/21/22 04/21/22 22:59 06:59 14:59 Intake Total 100 / 100 Balance 100 / 100 Intake: IV 100 / 100 Acetaminophen 1,000 mg In 100 100 / 100 ml @ 400 mls/hr IV NOW STA Rx#: [id number] Other: Weight 98.3 kg 98.3 kg Weight Measurement Method Built in [facility] Built in [facility]
[2022-04-21] MEDS: BUMETANIDE 1 MG TAB PO SCH ×2 (08:59→16:52)
[2022-04-21] MEDS: OXYBUTYNIN CHLORIDE XL 5 MG TABCR PO SCH (08:59)
[2022-04-21] MEDS: METOPROLOL SUCC 50MG EXT REL TAB PO SCH (09:00)
[2022-04-21] MEDS ORDERED: ROSUVASTATIN CALCIUM 20 MG TAB PO SCH (09:00)
[2022-04-21] MEDS: GABAPENTIN 100 MG CAP PO SCH ×3 (09:00→21:05)
[2022-04-21] MEDS: SENNA 8.6 MG TAB PO SCH (09:01)
[2022-04-21] MEDS: amLODIPine BESYLATE 5 MG TAB PO SCH (09:01)
[2022-04-21] MEDS: CITALOPRAM 20 MG TAB PO SCH (09:01)
[2022-04-21] MEDS: ASPIRIN 81 MG ECTAB PO SCH (10:45)
[2022-04-21] MEDS: ISOSORBIDE MONO EXTENDED REL 30 MG TABCR PO SCH (10:45)
--- NOTE | 2022-04-21 12:17 | Pharmacy Report ---
Pharmacy Glycemic Short Note 2 - Date of Service April 21, 2022 - Glycemic Short BSG Results (Last 24 hours): 04/20/22 04/21/22 04/21/22 19:16 02:09 04:36 Glucose 260 H 95 POC Glucose 141 H 04/21/22 04/21/22 04/21/22 06:38 08:59 11:17 Glucose POC Glucose 108 H 121 H 120 H OUTPATIENT ANTIDIABETIC REGIMEN: * Novolog 70/30 25 units BID * A1c 9.4% 04/21/22- unreliable in the setting of PD ASSESSMENT: * Patient admitted with exertional chest pain, initially NPO, now ordered heart healthy/T2 Diet with lunch * BSGs have been controlled since admission, monitor with diet change * Continue current novolog parameters based on stress of 2 (weight/total outpatient insulin use) * 15 units of lantus given this AM, will order additional scale for dinner based on outpatient insulin use * overnight check PLAN FOR INPATIENT GLYCEMIC CONTROL: * Hold outpatient oral diabetes medications * Basal insulin * Lantus 15 units SQ this AM, 9-15 units with dinner * Bolus insulin * NovoLog per scale ACHS or Q6hrs while NPO * Goal Range: Low 110 mg/dL - High 140 mg/dL * Correction Factor: 25 mg/dL/unit * Nutritional / Prandial insulin per carb ratio of 1 unit per 8 grams CHO consumed
--- NOTE | 2022-04-21 13:42 | Hospitalist Progress Note ---
Date of Service April 21, 2022 Assessment & Plan (1) Chest pain: Plan: - with exertion and associated with dizziness - no history of VA or CVA - ECG without ischemic changes, mild troponin elevation in the setting of ESRD - currently without chest pain at rest Plan: Cardiology consulted; patient is started on aspirin 81 mg/day and Imdur 30 mg/day. Patient switched to Lipitor 40 mg p.o. daily. Continue on metoprolol and amlodipine for high blood pressure We will follow serial cardiac enzymes and echo Lexiscan likely as an outpatient. (2) Lumbar radiculopathy: Plan: - had recent admission due to weakness and pain in RLE - seen by NSG and recommended rehab - improved at rehab but still with weakness - continue outpatient medications - will get PT/OT evaluation now that patient is here - sensation and strength intact bilaterally (3) DM type 2 (diabetes mellitus, type 2): Plan: - on insulin 70/30 at 25 units at home - BG 260 on admission - ESRD on PD - FSG AC+HS - started on 15 units lantus qhs - SSI for now - adjust insulin as needed - diabetic diet (4) Hyperlipidemia: Plan: - continue statin (5) Hypothyroid: Plan: - continue levothyroxine (6) Obesity (BMI 30-39.9): Plan: - BMP 38 - noted (7) Anxiety: Plan: - continue citalopram (8) Hypertension: Plan: - continue home bp meds (9) ESRD (end stage renal disease) on dialysis: Plan: - on PD at home during the day - renal on board Plan DVT ppx: heparin Code Status: Full Code Dispo: med/surg with telemetry Admission and Anticipated Discharge Date Admission Date: April 20, 2022 Subjective Patient seen and examined at bedside. She is comfortable; not in any acute distress. She denies any chest pain at rest and at ambulation. Review of Systems Review of Systems: All systems reviewed & are unremarkable except as noted in Subjective Physical Exam Physical Exam: Constitutional:L WD/WN, vitals as a kamran + obese and comfortable; no ac layla distress Eyes: PERRL, conjunctiva e normal, anicteri c sclerae ENMT: external ear and n ose normal, oropha rynx normal Neck: trachea midline, n o thyromegaly Respiratory: normal respiratory effort, lungs dragan ar to auscultation Cardiovascular:L RRR, no murmur, no edema Gastrointestinal ( Abdomen): normal bowel sound s, soft, nontender , no hepatosplenom egaly peritoneal dialysis catheter in LUQ, no erythem a or drainage Musculoskeletal: no cyanosis or clu bbing, extremities motor strength 5/ 5 Skin: no rashes, warm an d dry Neurologic: patellar DTR's 2+ bilat, sensation i ntact and PERRL, E CLYDE, accommodation nl, no face palsy , no dysarthria Psychiatric: A+Ox3, euthymic af fect Results & Data Results & Data ([facility]) Vital Signs (Past 12 Hours) Vital Signs Temp Pulse Pulse Resp BP Pulse Ox O2 Del Method 04/21/22 12:17 65 04/21/22 10:08 36.5 C 64 20 169/76 H 94 Room Air 04/21/22 10:04 Room Air 04/21/22 09:00 69 17 154/73 H 97 04/21/22 07:43 70 18 171/84 H 97 Room Air 04/21/22 05:27 37.0 C 68 14 164/76 H 97 Room Air 04/21/22 02:23 97 Room Air 04/21/22 02:00 66 48 H 148/109 H 97 Room Air Diagnostic Findings Laboratory Results WBC 7.99 K/ul (4.8-10.8) 04/21/22 04:36 RBC 3.14 M/uL (3.93-5.22) L 04/21/22 04:36 Hgb 9.6 g/dl (12.0-16.0) L 04/21/22 04:36 Hct 27.4 % (34.1-44.9) L 04/21/22 04:36 MCV 87.3 fL (80.0-100.0) 04/21/22 04:36 MCH 30.6 pg (25.0-34.0) 04/21/22 04:36 MCHC 35.0 g/dL (32.0-36.0) 04/21/22 04:36 RDW Std Deviation 38.5 fL (36.4-46.3) 04/21/22 04:36 RDW Coeff of [place] 12.0 % (11.5-14.5) 04/21/22 04:36 Plt Count 213 K/uL (130-400) 04/21/22 04:36 MPV 9.9 fL (9.4-12.3) 04/21/22 04:36 Immature Gran % (Auto) 0.5 % 04/21/22 04:36 Neut % (Auto) 61.4 % 04/21/22 04:36 Lymph % (Auto) 27.9 % 04/21/22 04:36 [place] % (Auto) 5.8 % 04/21/22 04:36 Eos % (Auto) 3.5 % 04/21/22 04:36 Baso % (Auto) 0.9 % 04/21/22 04:36 Neut # (Auto) 4.91 K/uL (1.4-6.5) 04/21/22 04:36 Lymph # (Auto) 2.23 K/uL (1.2-3.4) 04/21/22 04:36 [place] # (Auto) 0.46 K/uL (0.24-0.82) 04/21/22 04:36 Eos # (Auto) 0.28 K/uL (0-0.50) 04/21/22 04:36 Baso # (Auto) 0.07 K/uL (0-0.2) 04/21/22 04:36 Immature Gran # (Auto) 0.04 K/uL (0.00-0.02) H 04/21/22 04:36 Sodium 136 mmol/L (136-145) 04/21/22 04:36 Potassium 4.1 mmol/L (3.5-5.1) 04/21/22 04:36 Chloride 98 mmol/L (98-107) 04/21/22 04:36 Carbon Dioxide 31 mmol/L (21-32) 04/21/22 04:36 Anion Gap 7 (3-11) 04/21/22 04:36 BUN 42 mg/dl (6-23) H 04/21/22 04:36 Creatinine 3.20 mg/dl (0.6-1.2) H 04/21/22 04:36 Est Cr Clr Drug Dosing 18.3 ml/min 04/21/22 04:36 Est GFR ( Amer) 16.2 ml/min 04/21/22 04:36 Est GFR (Non-Af Amer) 14.0 ml/min 04/21/22 04:36 BUN/Creatinine Ratio 13.1 (10-20) 04/21/22 04:36 Glucose 95 mg/dl (70-99(Fasting)) 04/21/22 04:36 POC Glucose 120 mg/dl (70-99) H 04/21/22 11:17 Estimat Average Glucose 223 mg/dl 04/21/22 04:36 Hemoglobin A1c 9.4 % (4.5-5.6) H 04/21/22 04:36 Calcium 9.0 mg/dl (8.5-10.1) 04/21/22 04:36 Phosphorus 4.2 mg/dl (2.5-4.9) 04/21/22 04:36 Magnesium 1.9 mg/dl (1.7-2.4) 04/21/22 04:36 Total Bilirubin 0.2 mg/dl (0.2-1.0) 04/21/22 04:36 AST 11 U/L (13-39) L 04/21/22 04:36 ALT 8 U/L (7-52) 04/21/22 04:36 Alkaline Phosphatase 47 U/L (34-104) 04/21/22 04:36 Troponin I High Sens 7.3 pg/ml (0-14) 04/21/22 00:18 Total Protein 6.1 gm/dl (6.0-8.3) 04/21/22 04:36 Albumin 3.1 gm/dl (3.4-5.0) L 04/21/22 04:36 Globulin 3.0 gm/dl (2.5-4.0) 04/21/22 04:36 Albumin/Globulin Ratio 1.0 (0.9-2) 04/21/22 04:36 Triglycerides 263 mg/dl (0-150) H 04/21/22 04:36 Cholesterol 141 mg/dl (0-200) 04/21/22 04:36 LDL Cholesterol, Calc 56 mg/dl 04/21/22 04:36 VLDL Cholesterol, Calc 53 mg/dl (0-30) H 04/21/22 04:36 HDL Cholesterol 32 mg/dl 04/21/22 04:36 Cholesterol/HDL Ratio 4.4 (0-5) 04/21/22 04:36 TSH 2.108 uIu/ml (0.300-4.500) 04/21/22 04:36 Urine Color Yellow 04/20/22 20:47 Urine Appearance Clear (Clear) 04/20/22 20:47 Urine pH 5.5 (4.5-7.5) 04/20/22 20:47 Ur Specific [place] 1.016 (1.000-1.030) 04/20/22 20:47 Urine Protein 3+ (Negative) H 04/20/22 20:47 Urine Glucose (UA) Trace (Negative) H 04/20/22 20:47 Urine Ketones Negative (Negative) 04/20/22 20:47 Urine Blood Negative (Negative) 04/20/22 20:47 Urine Nitrite Negative (Negative) 04/20/22 20:47 Urine Bilirubin Negative (Negative) 04/20/22 20:47 Urine Urobilinogen Negative (Negative) 04/20/22 20:47 Ur Leukocyte Esterase Negative (Negative) 04/20/22 20:47 Urine WBC (Auto) 1-5 /hpf (0-5) 04/20/22 20:47 Urine RBC (Auto) 0-4 /hpf (0-4) 04/20/22 20:47 U Hyaline Cast (Auto) 1-5 /lpf (0-5) 04/20/22 20:47 U Epithel Cells (Auto) >30 /lpf (0-5) H 04/20/22 20:47 Urine Bacteria (Auto) Negative (Negative) 04/20/22 20:47 SARS-CoV-2, RNA, NAAT NEGATIVE (NEGATIVE) 04/20/22 22:40 Impressions Chest X-Ray 04/20/22 18:56 XR chest 1V portable HISTORY: WEAKNESS, shortness of breath WITH EXERTION COMPARISON: Chest 04/15/2015. FINDINGS: No pneumothorax. No pleural effusions. The heart is normal in size. No new focal lung consolidations to suggest pneumonia. No evidence for pulmonary edema. A stable 4 mm nodular density within the right lung apex. This may represent a calcified granuloma given the long-term stability. IMPRESSION: No significant change compared to the prior study. No acute process. ACT 112: Negative or not required by law. Electronically signed by: Bryan Freeman M.D. 04/20/2022 7:36 PM
--- NOTE | 2022-04-21 14:52 | Electrocardiogram Report ---
Test Reason : Blood Pressure : / mmHG Vent. Rate : 076 BPM Atrial Rate : 076 BPM P-R Int : 164 ms QRS Dur : 090 ms QT Int : 418 ms P-R-T Axes : 067 003 080 degrees QTc Int : 470 ms Normal sinus rhythm Nonspecific ST and T wave abnormality Abnormal ECG When compared with ECG of 15-APR-2015 11:39, No significant change was found Confirmed by Eleazar Mcgill ([id number]) on 04/21/2022 2:51:55 PM Referred By: REFERRED SELF Confirmed By:Bertin Mcgill
[2022-04-21] MEDS: ACETAMINOPHEN 325 MG TAB PO PRN ×2 (15:06→22:00)
[2022-04-22] MEDS ORDERED: INSULIN ASPART PER UNIT SC SCH (02:00)
[2022-04-22] MEDS: HEPARIN SOD 5,000 UNIT/0.5 ML VIAL SQ SCH (06:23)
[2022-04-22] MEDS: LEVOTHYROXINE SODIUM 50 MCG TABLET PO SCH (06:24)
[2022-04-22 07:37] LABS: Albumin Globulin Ratio 1.1 (0.9-2); Albumin Level 3.3 gm/dl (3.4-5.0); BUN Creatinine Ratio 14.4 (10-20); Bilirubin,Total 0.3 mg/dl (0.2-1.0); Calcium 9.4 mg/dl (8.5-10.1); Creatinine Clr Calc Pharmacy 17.4 ml/min; Est GFR (African American) 15.8 ml/min; Est GFR (Non-African American) 13.6 ml/min; Globulin 3.1 gm/dl (2.5-4.0); Potassium 4.4 mmol/L (3.5-5.1); Total Protein 6.4 gm/dl (6.0-8.3)
[2022-04-22] MEDS ORDERED: ATORVASTATIN 40 MG TAB PO SCH (09:00)
[2022-04-22] MEDS ORDERED: LANTUS PER UNIT CHARGE SQ SCH (09:00)
[2022-04-22] MEDS: BUMETANIDE 1 MG TAB PO SCH (09:30)
[2022-04-22] MEDS: OXYBUTYNIN CHLORIDE XL 5 MG TABCR PO SCH (09:30)
[2022-04-22] MEDS: ISOSORBIDE MONO EXTENDED REL 30 MG TABCR PO SCH (09:31)
[2022-04-22] MEDS: GABAPENTIN 100 MG CAP PO SCH (09:31)
[2022-04-22] MEDS: SENNA 8.6 MG TAB PO SCH (09:31)
[2022-04-22] MEDS: ASPIRIN 81 MG ECTAB PO SCH (09:31)
[2022-04-22] MEDS: METOPROLOL SUCC 50MG EXT REL TAB PO SCH (09:31)
[2022-04-22] MEDS: amLODIPine BESYLATE 5 MG TAB PO SCH (09:31)
[2022-04-22] MEDS: CITALOPRAM 20 MG TAB PO SCH (09:31)
[2022-04-22] MEDS: INSULIN ASPART PER UNIT SC SCH (09:35)
--- NOTE | 2022-04-22 10:54 | Nephrology Progress Note ---
Date of Service April 22, 2022 Assessment & Plan (1) ESRD (end stage renal disease) on dialysis: Plan: on CCPD for 4 x 2L cycles over 8hr all 2.5% w/ no LBF, no MDE; moved recently to this area and transitioning between units; [facility]. wishes to join [facility] for PD. -continue her bumex OP dose -continue bowel regimen OK to discharge from Nephrology, she will f/u outpatinet PD nurse. Admission and Anticipated Discharge Date Admission Date: April 20, 2022 Subjective Patient seen and examined at bedside. She is comfortable; not in any acute distress. Review of Systems Review of Systems: All systems reviewed & are unremarkable except as noted in HPI & below Physical Exam Physical Exam: General: Awake alert oriented x3. Not in any acute distress. Chest: Clear CVS: normal heart sounds, no murmur Abdomen: Soft, non tender, not distended, normal bowel sounds Neuro: Alert, oriented x3. Extremities: Trace edema Results & Data ([facility]) Vital Signs (Past 12 Hours) Vital Signs Temp Pulse Pulse Pulse Resp BP Pulse Ox 04/22/22 10:34 72 04/22/22 07:55 36.4 C L 79 19 04/22/22 07:06 36.4 C L 79 19 163/82 H 97 04/22/22 03:00 36.6 C 63 18 147/83 H 96 04/22/22 00:48 71 O2 Del Method 04/22/22 10:34 04/22/22 07:55 04/22/22 07:06 Room Air 04/22/22 03:00 Room Air 04/22/22 00:48 Laboratory Results 04/21/22 04:36 04/22/22 06:13
--- NOTE | 2022-04-22 14:34 | Discharge Summary ---
Date of Service April 22, 2022 Admission HPI Per Admitting Provider The patient is a 71 year old woman with pmh HTN, HLD, DM2, lumbar radiculopathy, hypothyroidism, obesity, ESRD on PD who presented with multiple weeks of chest pain with exertion. She reports that she was recently in a rehab due to lumbar radiculopathy with right leg pain and weakness. She did well at rehab and was discharged home with continued home PT. She reports taht while at the rehab and at home, she experienced a squeezing, pressure like chest pain when walking, which is limited due to her right leg issues. She reports associated dizziness and possibly shortness of breath. She denies nausea or vomiting, diarrhea, abdominal pain, LOC. She denies a personal history of NH or CVA and denies any cardiac issues in her parents, although her son has some reported cardiac issues. She reports the pain and dizziness subside with few minutes of rest. Her functional capacity is limited and is able to walk about 20 feet before symptom onset. In the ED, vitals were unremarkable. Labs were significant for Cr 3 (on home PD), Na 133, BG 260. She was admitted to medicine for further work up. Admission Exam Per Admitting Provider B Constitutional: WD/WN, vitals as above + obese and comfortable; no acute distress Eyes: PERRL, conjunctivae normal, anicteric sclerae ENMT: external ear and nose normal, oropharynx normal Neck: trachea midline, no thyromegaly Respiratory: normal respiratory effort, lungs clear to auscultation Cardiovascular: RRR, no murmur, no edema Gastrointestinal (Abdomen): normal bowel sounds, soft, nontender, no hepatosplenomegaly peritoneal dialysis catheter in LUQ, no erythema or drainage Musculoskeletal: no cyanosis or clubbing, extremities motor strength 5/5 Skin: no rashes, warm and dry Neurologic: patellar DTR's 2+ bilat, sensation intact and PERRL, EOMI, accommodation nl, no face palsy, no dysarthria Psychiatric: A+Ox3, euthymic affect Principal Diagnosis 1) Chest pain, likely anginal 2) Lumbar radiculopathy 3)ESRD on Peritoneal dialysis 4) Hyperlipidemia 5) Hypertension Discharge Exam Constitutional: WD/WN, vitals as above + obese and comfortable; no acute distress Eyes: PERRL, conjunctivae normal, anicteric sclerae ENMT: external ear and nose normal, oropharynx normal Neck: trachea midline, no thyromegaly Respiratory: normal respiratory effort, lungs clear to auscultation Cardiovascular: RRR, no murmur, no edema Gastrointestinal (Abdomen): normal bowel sounds, soft, nontender, no hepatosplenomegaly peritoneal dialysis catheter in LUQ, no erythema or drainage Musculoskeletal: no cyanosis or clubbing, extremities motor strength 5/5 Skin:L no rashes, warm and dry Neurologic: patellar DTR's 2+ bilat, sensation intact and PERRL, EOMI, accommodation nl, no face palsy, no dysarthria Psychiatric: A+Ox3, euthymic affect Discharge Data Allergies Allergy/AdvReac Type Severity Reaction Status Date / Time meperidine Allergy Intermediate hypotension-passed Verified 04/20/22 21:09 out Consultations 04/20/22 22:33 ED Decision to Admit Stat 04/20/22 23:23 Consult Cardiology Routine 04/20/22 23:35 Consult Nephrology Stat Diabetes Follow up Diabetes Follow-up Needed for HgbA1c >9% Hospital Course (1) Chest pain: (2) Lumbar radiculopathy: (3) DM type 2 (diabetes mellitus, type 2): (4) Hyperlipidemia: (5) Hypothyroid: (6) Obesity (BMI 30-39.9): (7) Anxiety: (8) Hypertension: (9) ESRD (end stage renal disease) on dialysis: Plan Patient is a 71 year old woman with pmh HTN, HLD, DM2, lumbar radiculopathy, hypothyroidism, obesity, ESRD on PD who presented with multiple weeks of chest pain with exertion. Patient was recently in a rehab due to acute lumbar radiculopathy and returned home. She had experienced chest pain on and off during ambulation. On arrival to the ED, patient was hemodynamically stable. EKG showed sinus rhythm with no significant ST or T wave changes. High- sensitivity troponin was slightly elevated in setting of ESRD with no si gnificant delta gap. Patient was admitted to telemetry floor and cardiology was consulted. Cardiology recommended echo, addition of aspirin 81 mg and Imdur 30 mg once daily. Her rosuvastatin was changed to Lipitor. Echo did not show any wall motion abnormalities. Patient was discharged back home. Patient lives with her son [id number] and grandchildren. She says she has good support system at her home. Her son and grandson son help her with the peritoneal dialysis. Her son was communicated regarding the findings and medication changes. Patient was asked to follow-up with PCP and do a stress test as outpatient. Total Time Total Time Spent Total Time Spent (In Minutes): 35 Total Time Includes: Examination of the Patient, Discharge Planning, Medication Reconciliation, Communication With Other Providers and Other Discharge Plan Discharge Items Patient Disposition: Home - Self-Care Reason For Visit: EXERTIONAL CHEST PAIN Discharge Diagnosis: 1) Chest pain 2) Lumbar radiculopathy 3) Type 2 DM 4) Hyperlipidemia 5) ESRD on HD Activity: Resume your previous activity Non-emergency contact: Primary Care Provider Call non-emergency contact if: you have any medication questions and your symptoms worsen Follow-up/Referrals: Aylin Crews PA-C [Outside Practitioners] - Diet: Dialysis Renal Addtl Attending Provider Instructions: The following changes have been made to your medication list as per the recommendation by the artificial log machine operator: 1) you are started on aspirin 81 mg once daily 2) you were also started on Imdur 30 mg once daily in the morning 3) please stop taking rosuvastatin. You are prescribed atorvastatin 40 mg once daily. Please follow-up with your primary care doctor in 1 week. You will need to have a stress( Lexiscan) test done as outpatient. Pending Studies at Discharge: No Stand-Alone Forms: My Whatever, Smoking Cessation Medications and DC Order Prescriptions: New atorvastatin 40 mg Tablet 40 mg PO QAM Qty: 30 0RF isosorbide mononitrate 30 mg Tablet Extended Release 24 Hr 30 mg PO QAM Qty: 30 0RF aspirin 81 mg Tablet,Delayed Release (Dr/Ec) 81 mg PO QAM Qty: 30 0RF Continued bumetanide 2 mg tablet 4 mg PO BID oxybutynin chloride 10 mg tablet extended release 24hr 10 mg PO DAILY Rx Instructions: DO NOT CRUSH, CHEW OR CUT. metoprolol succinate 50 mg tablet extended release 24 hr 50 mg PO DAILY citalopram 10 mg tablet 10 mg PO DAILY omeprazole 40 mg capsule,delayed release(DR/EC) 40 mg PO QAM tramadol 50 mg Tablet 50 mg PO Q4H PRN (Reason: Pain) amlodipine 10 mg tablet 10 mg PO DAILY levothyroxine 50 mcg tablet 50 mcg PO DAILYBB docusate sodium 100 mg Capsule 100 mg PO BID gabapentin 100 mg capsule 200 mg PO TID polyethylene glycol 3350 [Miralax] 17 gram/dose Powder 17 g PO BID insulin asp prt-insulin aspart [Novolog Mix 70-30 U-100 Insuln] 100 unit/mL (70-30) solution 25 unit SUBCUT BIDM diclofenac sodium 1 % Gel 2 g TOPICAL QID cholecalciferol (vitamin D3) [Vitamin D3] 125 mcg (5,000 unit) Tablet 125 mcg PO DAILY melatonin 10 mg Tablet 10 mg PO HS Discontinued rosuvastatin 20 mg tablet 20 mg PO DAILY Discharge Orders: Discharge Order (Routine); Ordered 04/22/22 Ordered By: Tien Glez Admission Data Admit Date/Time: 04/20/22 22:40 Attending Provider: Tien Glez Admit Provider: Ashish Quevedo Primary Care Provider: PCP,NO Other Providers: Ilir Angeles Stacy L. Other Interventions: Discharge Summary Assessment (RN) Last Done: 04/22/22 11:01
== END 2022-04-22 12:02 | disposition home or self-care (01) ==
LOC: EDINP 18:45 → ED 18:45 → SUATTDRO 22:40 → 2S 04-21 02:20

== ENCOUNTER 2022-07-23 18:19 | Observation (INO) ==
[2022-07-23] MEDS ORDERED: SODIUM CHLORIDE 0.9% 1000ML 1,000 ML IV SCH (19:00)
[2022-07-23 19:03] LABS: Basophils # (auto) 0.09 K/uL (0-0.2); Eosinophils # (auto) 0.32 K/uL (0-0.50); Eosinophils % (auto) 3.7 %; Hematocrit (blood only) 28.4 % (34.1-44.9); Hemoglobin 9.4 g/dl (12.0-16.0); Immature Granulocytes # (auto) 0.03 K/uL (0.00-0.02); Immature Granulocytes % (auto) 0.3 %; Lymphocytes # (auto) 2.27 K/uL (1.2-3.4); Lymphocytes % (auto) 26.3 %; Mean Corpuscular Hemoglobin 29.7 pg (25.0-34.0); Mean Corpuscular Hgb Conc 33.1 g/dL (32.0-36.0); Mean Corpuscular Volume 89.6 fL (80.0-100.0); Mean Platelet Volume 10.9 fL (9.4-12.3); Monocytes # (auto) 0.76 K/uL (0.24-0.82); Monocytes % (auto) 8.8 %; Neutrophils # (auto) 5.15 K/uL (1.4-6.5); Neutrophils % (auto) 59.9 %; Platelet Count 225 K/uL (130-400); RDW Coefficient of Variation 12.8 % (11.5-14.5); RDW Standard Deviation 42.1 fL (36.4-46.3); Red Blood Count 3.17 M/uL (3.93-5.22); White Blood Count 8.62 K/ul (4.8-10.8)
[2022-07-23 19:23] LABS: Albumin Level 2.9 gm/dl (3.4-5.0); BUN Creatinine Ratio 9.2 (10-20); Bilirubin,Total 0.2 mg/dl (0.2-1.0); Calcium 8.1 mg/dl (8.5-10.1); Creatinine Clr Calc Pharmacy 12.8 ml/min; Est GFR (African American) 10.8 ml/min; Est GFR (Non-African American) 9.3 ml/min; Magnesium 1.6 mg/dl (1.7-2.4); Potassium 3.9 mmol/L (3.5-5.1); Total Protein 5.9 gm/dl (6.0-8.3)
[2022-07-23 19:28] LABS: INR 0.9 (0.9-1.1); Partial Thromboplastin Ratio 0.9; Partial Thromboplastin Time 25.4 Seconds (21.0-31.0); Prothrombin Time 10.1 Seconds (9.0-12.0)
[2022-07-23 19:29] LABS: Troponin I High Sensitivity 20.2 pg/ml (0-14)
[2022-07-23 19:30] LABS: iSTAT Hemoglobin 7.8 g/dl (12.0-16.0); iSTAT Ionized Calcium 1.11 mmol/l (1.12-1.32); iSTAT Potassium 3.7 mmol/L (3.3-5.0)
--- NOTE | 2022-07-23 19:42 | CT Scan Report ---
HEAD CT NONCONTRAST CT DOSE: 537.48 mGy.cm HISTORY: Slurred speech. Stroke Like Symptoms TECHNIQUE: Multiaxial CT images of the head were performed without the use of intravenous contrast. A utomated exposure control was utilized for this study. A dose lowering technique was utilized adheri ng to the principles of ALARA. Comparison: None. Findings: Polypoid mucosal thickening within the ethmoid air cells and right maxillary sinus. There a re postoperative changes within the right paranasal sinuses. The mastoid air cells are clear. The princess varium and skull base are intact. There is no mass, hematoma, midline shift, acute infarct. White mat ter hypodensity is nonspecific but suggestive of microvascular ischemic change. The ventricles and talley lci demonstrate mild age-related involutional changes. Impression: No acute intracranial abnormality. ACT 112: Negative or not required by law. Electronically signed by: Bryan Freeman M.D. 07/23/2022 7:40 PM
--- NOTE | 2022-07-23 20:31 | Emergency Department Note ---
Impression & Plan Stroke-like symptoms, End stage renal disease ED Provider Note INFORMANT: Patient and family ED PROVIDER(S): Antony Gonzales MD CHIEF COMPLAINT: Strokelike symptoms PLAN: Disposition: Admitted Condition: Good Outpatient prescription management: none Referral: None MEDICAL DECISION MAKING: Patient present because of acute strokelike symptoms. A work-up was initiated. The patient had resolution of symptoms by time I evaluated her. A stroke alert was not initiated. She had no focal findings on examination other than her chronic right lower extremity weakness. The patient underwent dry CT imaging of the head which was negative. Due to her end-stage renal disease and the fact that she still makes some urine CT angiography with contrast was avoided. Dry CT was negative. ECG was normal sinus rhythm. She has a moderate anemia on CBC. Chemistry panel reveals findings consistent with her end-stage renal disease. Troponin was borderline. Patient will need further management in the hospital. Consultation was placed with Dr. Antonio Reid, [facility] hospitalist service. Patient was evaluated in the ER admitted for further management. Triage Nursing notes reviewed and agree them. Vital Signs: reviewed and remarkable for no significant abnormalities Differential diagnosis: CVA, TIA, Infection, dehydration, metabolic abnormality, hypo/hyperglycemia, electrolyte disturbance, anemia, hypoxia, cardiac sources, intracerebral event, toxicologic, neurologic, as well as other pathologies. Diagnostics interpreted by me: ECG: Twelve-lead ECG reveals normal sinus rhythm at 70 bpm. Lateral T wave inversions present. No ST elevation. Cardiac Monitoring: Cardiac monitoring ordered by me: The patient was placed on continuous cardiac monitoring and observed. It revealed a normal sinus rhythm at 70 beats per minute without ectopy or evidence of dysrhythmia. Imaging studies: Head CT: A noncontrast CT scan of the head was performed and was negative for tumor, fracture, intracranial hemorrhage, or other acute pathology. Chest x-ray. Findings: A chest x-ray was performed and revealed no pneumothorax, effusion, infiltrate, pulmonary edema, free air under the diaphragm, or wide mediastinum. Impression: No acute disease. HPI: The patient is a 71 year old female who presents to the Emergency Room with complaints of strokelike symptoms. This started around 1: 30 and is currently resolved. The patient also notes the following associated symptoms, right facial droop, lethargy, slurred speech. Daughter is present and helps with history. She notes that the patient had a fall yesterday but denied any significant injury. She has a weak right leg which is chronic for her. The patient states that causes her balance issues. Today she woke up and was well for breakfast and lunch. She noted feeling not well but did not have any focal symptoms that she could describe at around 1:00. She woke up from the nap around 4:30 PM and family noted that she was having issues with facial droop and difficulty with slurred speech. Patient was brought to the emergency department for evaluation. By time she arrived to the emergency department the facial droop and slurred speech had resolved. The patient has no medication for relieving factors. Current pain is rated as 0/10. No history of stroke or TIA. Patient is dealing with end-stage renal disease and is on peritoneal dialysis. Pt denies LOC, headache, fevers, chills, diaphoresis, visual changes, neck pain, chest pain, breathing difficulties, nausea, vomiting, abdominal pain, back pain, melena, hematochezia, urinary symptoms, numbness, lymphadenopathy, rash, or other complaints. ROS: See above HPI for pertinent positives & negatives. A total of 10 systems reviewed and were otherwise negative. PAST MEDICAL HISTORY:See Below , end-stage renal disease PAST SURGICAL HISTORY:See Below, FAMILY HISTORY:See Below SOCIAL HISTORY:See Below, retired HOME MEDICATIONS:See Below ALLERGIES:See Below VITALS:See Below PHYSICAL EXAMINATION: GENERAL: Awake, alert, tired-appearing, in no distress HENT: Normocephalic, atraumatic. Oropharynx unremarkable. EYES: Mildly pale conjunctiva. Sclera non-icteric. PERRLA. EOMI. NECK: Inspection normal. Non-tender. Supple. No nuchal rigidity. FROM. No masses. RESPIRATORY: Clear to auscultation. No wheezes. No rales. Normal respiratory effort. CARDIAC: Normal rate. Normal rhythm. No murmurs. No rubs. Extremities warm and well perfused. Pulses equal. No JVD. GI: Soft, non-distended. No tenderness to palpation. No rebound or guarding. No masses. RECTAL: Deferred. MUSCULOSKELETAL: Atraumatic. Chest examination reveals no tenderness. The back is symmetrical on inspection without obvious abnormality. There is no CVA tenderness to palpation. No joint edema. LOWER EXTREMITIES: Calves are equal size bilaterally and non-tender. No edema. No discoloration. NEURO: Normal sensorium. No sensory or motor deficits noted. Cranial nerves II through XII intact. Weakness in the right lower extremity noted however the patient states this is chronic for her. No drift. Normal rapid alternating movements. Speech normal per family. SKIN: No rash or jaundice noted. Antony Gonzales MD Past Med/Surg History Social History Feels Safe at Home: Yes Results & Data (ED) Vital Signs Vital Signs - 24 hr 07/23/22 18:11 Temperature 37 C Temperature Source Oral Pulse Rate 70 Pulse Rhythm Regular Pulse Strength Normal Respiratory Rate 20 Respiratory Effort / Characteristics Non-Labored Respiratory Depth Normal Respiratory Pattern Regular Blood Pressure 134/88 Blood Pressure Mean 103 Blood Pressure Position Lying Pulse Oximetry 97 Oxygen Delivery Method Room Air Sepsis Recent Fever Within 48 Hours No Sepsis New/Unexplained Change in Mental Status Yes Sepsis Action Taken by Nursing No Action Required Laboratory Data Result diagrams: 07/23/22 18:39 07/23/22 18:39 Lab Results 07/23/22 07/23/22 07/23/22 Range/Units 18:39 18:39 18:39 WBC 8.62 (4.8-10.8) K/ul RBC 3.17 L (3.93-5.22) M/uL Hgb 9.4 L (12.0-16.0) g/dl POC Hgb (12.0-16.0) g/dl Hct 28.4 L (34.1-44.9) % POC Hct (37-47) % MCV 89.6 (80.0-100.0) fL MCH 29.7 (25.0-34.0) pg MCHC 33.1 (32.0-36.0) g/dL RDW Std Deviation 42.1 (36.4-46.3) fL RDW Coeff of Bethany 12.8 (11.5-14.5) % Plt Count 225 (130-400) K/uL MPV 10.9 (9.4-12.3) fL Immature Gran % (Auto) 0.3 % Neut % (Auto) 59.9 % Lymph % (Auto) 26.3 % Mcnairy % (Auto) 8.8 % Eos % (Auto) 3.7 % Baso % (Auto) 1.0 % Neut # (Auto) 5.15 (1.4-6.5) K/uL Lymph # (Auto) 2.27 (1.2-3.4) K/uL Mcnairy # (Auto) 0.76 (0.24-0.82) K/uL Eos # (Auto) 0.32 (0-0.50) K/uL Baso # (Auto) 0.09 (0-0.2) K/uL Immature Gran # (Auto) 0.03 H (0.00-0.02) K/uL PT 10.1 (9.0-12.0) Seconds INR 0.9 (0.9-1.1) APTT 25.4 (21.0-31.0) Seconds PTT Ratio 0.9 POC Sodium (135-144) mmol/L Sodium 139 (136-145) mmol/L POC Potassium (3.3-5.0) mmol/L Potassium 3.9 (3.5-5.1) mmol/L POC Chloride (101-112) mmol/L Chloride 104 (98-107) mmol/L Carbon Dioxide 27 (21-32) mmol/L POC Total CO2 (24-31) mmol/L Anion Gap 8 (3-11) POC Anion Gap (16-25) mmol/L POC BUN (7-18) mg/dl BUN 41 H (6-23) mg/dl Creatinine 4.48 H (0.6-1.2) mg/dl POC Creatinine (0.6-1.3) mg/dl Est Cr Clr Drug Dosing 12.8 ml/min Est GFR ( Amer) 10.8 ml/min Est GFR (Non-Af Amer) 9.3 ml/min BUN/Creatinine Ratio 9.2 L (10-20) Glucose 137 H (70-99(Fasting)) mg/dl POC Glucose (other) (70-99) mg/dl Calcium 8.1 L (8.5-10.1) mg/dl POC Ioniz Calcium Talha (1.12-1.32) mmol/l Magnesium 1.6 L (1.7-2.4) mg/dl Total Bilirubin 0.2 (0.2-1.0) mg/dl AST 16 (13-39) U/L ALT 11 (7-52) U/L Alkaline Phosphatase 58 (34-104) U/L Troponin I High Sens 20.2 H (0-14) pg/ml Total Protein 5.9 L (6.0-8.3) gm/dl Albumin 2.9 L (3.4-5.0) gm/dl Globulin 3.0 (2.5-4.0) gm/dl Albumin/Globulin Ratio 1.0 (0.9-2) Blood Type Antibody Screen 07/23/22 07/23/22 Range/Units 19:02 19:30 WBC (4.8-10.8) K/ul RBC (3.93-5.22) M/uL Hgb (12.0-16.0) g/dl POC Hgb 7.8 L (12.0-16.0) g/dl Hct (34.1-44.9) % POC Hct 23 L (37-47) % MCV (80.0-100.0) fL MCH (25.0-34.0) pg MCHC (32.0-36.0) g/dL RDW Std Deviation (36.4-46.3) fL RDW Coeff of Bethany (11.5-14.5) % Plt Count (130-400) K/uL MPV (9.4-12.3) fL Immature Gran % (Auto) % Neut % (Auto) % Lymph % (Auto) % Mcnairy % (Auto) % Eos % (Auto) % Baso % (Auto) % Neut # (Auto) (1.4-6.5) K/uL Lymph # (Auto) (1.2-3.4) K/uL Mcnairy # (Auto) (0.24-0.82) K/uL Eos # (Auto) (0-0.50) K/uL Baso # (Auto) (0-0.2) K/uL Immature Gran # (Auto) (0.00-0.02) K/uL PT (9.0-12.0) Seconds INR (0.9-1.1) APTT (21.0-31.0) Seconds PTT Ratio POC Sodium 139 (135-144) mmol/L Sodium (136-145) mmol/L POC Potassium 3.7 (3.3-5.0) mmol/L Potassium (3.5-5.1) mmol/L POC Chloride 103 (101-112) mmol/L Chloride (98-107) mmol/L Carbon Dioxide (21-32) mmol/L POC Total CO2 25 (24-31) mmol/L Anion Gap (3-11) POC Anion Gap 16.0 (16-25) mmol/L POC BUN 35 H (7-18) mg/dl BUN (6-23) mg/dl Creatinine (0.6-1.2) mg/dl POC Creatinine 5.0 H* (0.6-1.3) mg/dl Est Cr Clr Drug Dosing ml/min Est GFR ( Amer) ml/min Est GFR (Non-Af Amer) ml/min BUN/Creatinine Ratio (10-20) Glucose (70-99(Fasting)) mg/dl POC Glucose (other) 140 H (70-99) mg/dl Calcium (8.5-10.1) mg/dl POC Ioniz Calcium Talha 1.11 L (1.12-1.32) mmol/l Magnesium (1.7-2.4) mg/dl Total Bilirubin (0.2-1.0) mg/dl AST (13-39) U/L ALT (7-52) U/L Alkaline Phosphatase (34-104) U/L Troponin I High Sens (0-14) pg/ml Total Protein (6.0-8.3) gm/dl Albumin (3.4-5.0) gm/dl Globulin (2.5-4.0) gm/dl Albumin/Globulin Ratio (0.9-2) Blood Type A Positive Antibody Screen NEGATIVE Administered Medications Sodium Chloride (Nss 1000ml) 1,000 mls @ 50 mls/hr IV .Q20H CHARLEY Stop: 08/22/22 18:59 Last Admin: 07/23/22 19:29 Dose: 50 mls/hr Documented By: RONNIE Imaging Data Radiologist's Impression: Head CT 07/23/22 18:[address] DOSE: 537.48 mGy.cm HISTORY: Slurred speech. Stroke Like Symptoms TECHNIQUE: Multiaxial CT images of the head were performed without the use of intravenous contrast. Automated exposure control was utilized for this study. A dose lowering technique was utilized adhering to the principles of ALARA. Comparison: None. Findings: Polypoid mucosal thickening within the ethmoid air cells and right max illary sinus. There are postoperative changes within the right paranasal sinuses. The mastoid air cells are clear. The calvarium and skull base are intact. There is no mass, hematoma, midline shift, acute infarct. White matter hypodensity is nonspecific but suggestive of microvascular ischemic change. The ventricles and sulci demonstrate mild age-related involutional changes. Impression: No acute intracranial abnormality. ACT 112: Negative or not required by law. Electronically signed by: Bryan Freeman M.D. 07/23/2022 7:40 PM Discharge Plan Visit Data Chief Complaint: TIA Symptoms Stated Complaint: FALL YESTERDAY, FACIAL DROOP, SLURRING ED Provider: Antony Gonzales Discharge Problem: Stroke-like symptoms, End stage renal disease Forms Stand Alone Forms: My [facility] Referrals Referrals: Susan Guidry, [Primary Care Provider] -
[2022-07-23] MEDS ORDERED: MAGNESIUM SULFATE / D5W 1 GM/100 ML BAG IV ONE (20:37)
[2022-07-23] MEDS: Patient's ALLERGY Info needs ENTERED SCH ×2 (21:11→22:09)
[2022-07-23] MEDS ORDERED: CLOPIDOGREL BISULFATE 75 MG TAB PO ONE (21:54)
--- NOTE | 2022-07-23 21:56 | History & Physical Report ---
Date of Service July 23, 2022 Assessment & Plan (1) TIA (transient ischemic attack): Plan: Right facial asymmetry and dysarthria Improving symptoms ? Aspirin failure Hypertension, elevated secondary to above hx CAD as per records, patient/family do not recall any confinements for heart attack. 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 () chronic anemia, hemoglobin at baseline Traumatic right ankle pain rule out bony injury hx rheumatoid arthritis OBS Medical telemetry Neurochecks Add Plavix to aspirin for secondary stroke prevention for possible aspirin failure Permissive hypertension for now Repeat CT head after 24 hours (Unfortunately MRI precluded by history of craniofacial surgery with metallic clips.) TTE and carotid Dopplers for additional stroke work-up Update lipid profile and hemoglobin A1c May need Neurology consultation pending work-up results Nephrology consult Re: Dialysis management Plain x-ray of the right ankle Re: Traumatic pain Basal bolus insulin, ISS BG goal 1 10-1 40, carb count coverage DVT prophylaxis. Heparin subcu DNR Patient son requesting updates from providers. Mr. Ashish Richardson, contact #[phone]. Secondary contact is patient's grandson (Mr. Cory Richardson, contact #[phone]). Text document was generated using [employer] voice recognition software. It may contain grammatical or spelling errors. Kindly contact undersigned for clarification of any documentation item in question. History of Present Illness Chief Complaint: Strokelike symptoms Primary Care Provider: Susan Guidry, History obtained from patient, family, and records. 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 Last confinement [facility] March 2022 for multiple falls attributed to chronic RLE weakness. Patient discharged to [facility] facility where she stayed from March 22 to 2021 before being discharged home. Patient had another fall at home yesterday after standing on her weaker right lower leg. No head trauma, no chest pain, no syncope. Patient was watching television with her daughter around 1:30 PM when patient was noted to have right facial droop and slurred speech. Usual RLE weakness. No headache, no chest pain, usual SOB on exertion. Patient compliant with home medications. Improving symptoms upon arrival at the ER. 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 Allergies Allergy/AdvReac Type Severity Reaction Status Date / Time meperidine [From Demerol] Allergy Severe Anaphylaxis Verified 07/23/22 21:51 Home Medications Medication Instructions Recorded Confirmed Type amlodipine 10 mg tablet 10 mg PO DAILY 07/23/22 07/23/22 History aspirin 81 mg tablet,delayed 81 mg PO DAILY 07/23/22 07/23/22 History release atorvastatin 40 mg tablet 40 mg PO DAILY 07/23/22 07/23/22 History bumetanide 2 mg tablet 4 mg PO AMHS 07/23/22 07/23/22 History cholecalciferol (vitamin D3) 125 125 mcg PO DAILY 07/23/22 07/23/22 History mcg (5,000 unit) tablet (Vitamin D3) diclofenac sodium 1 % topical gel 0 g topical DIRECTED PRN Pain 07/23/22 07/23/22 History docusate sodium 100 mg capsule 100 mg PO BID 07/23/22 07/23/22 History food supplemt, lactose-reduced 1 ea PO BID 07/23/22 07/23/22 History (Ensure oral liquid) gabapentin 300 mg capsule 300 mg PO QAM 07/23/22 07/23/22 History gabapentin 300 mg capsule 600 mg PO QPM 07/23/22 07/23/22 History gentamicin 0.1 % topical cream 1 applic topical DAILY 07/23/22 07/23/22 History insulin aspar prot-insulin aspart 34 unit subcut QAM 07/23/22 07/23/22 History 100 unit/mL (70-30) subcutaneous pen (Novolog Mix 70-30FlexPen U-100) insulin aspar prot-insulin aspart 35 unit subcut QPM 07/23/22 07/23/22 History 100 unit/mL (70-30) subcutaneous pen (Novolog Mix 70-30FlexPen U-100) isosorbide mononitrate 30 mg 30 mg PO QAM 07/23/22 07/23/22 History tablet,extended release 24 hr levothyroxine 50 mcg tablet 50 mcg PO DAILY 07/23/22 07/23/22 History melatonin 10 mg tablet 10 mg PO HS 07/23/22 07/23/22 History metoprolol succinate 50 mg 50 mg PO DAILY 07/23/22 07/23/22 History tablet,extended release 24 hr mirtazapine 15 mg tablet 15 mg PO HS 07/23/22 07/23/22 History omeprazole 40 mg capsule,delayed 40 mg PO DAILY 07/23/22 07/23/22 History release oxybutynin chloride 10 mg 10 mg PO QAM 07/23/22 07/23/22 History tablet,extended release 24 hr polyethylene glycol 3350 17 gram 17 g PO BID 07/23/22 07/23/22 History oral powder packet (Miralax) tramadol 50 mg tablet 50 mg PO Q4 PRN Pain 07/23/22 07/23/22 History Past Med/Surg History Social History Smoking Status: Never smoker Hx Alcohol Use: Yes Alcohol type: wine Hx Substance Use: No Preferred Language: Qatari Communication Ability: Effective Sleeve Maker Required: No Beliefs That Will Affect Care: None Current Living Situation: Family Current Living Situation Comment: Patient lives with son, Ashish and Daughter - in - Law Other Information That Helps Us Care for You: No Feels Safe at Home: Yes Safety Concerns: Feels Safe At This Time Assistive Devices: Denture - Upper, Glasses and Hearing Aid - Bilateral Review of Systems Review of Systems: As per HPI, all other systems reviewed and negative Physical Exam Physical Exam: GENERAL: Comfortable, slightly hard of hearing, mild dysarthria, obese, no respiratory distress SKIN: Pallor , warm HEENT: Pale, palpebral conjunctivae, no ptosis, mild flattening right nasolabial fold, dry buccal mucosa NECK : Supple, no tenderness CHEST : CTA, no tenderness HEART : RRR, no obvious murmurs ABDOMEN: Some distention, nontender EXTREMITIES : Bilateral LE swelling/, right ankle tenderness, no other conspicuous deformities noted NEUROLOGIC : Coherent, mild flattening of right nasolabial fold, dysarthric, MMTS BUE 4/5, RLE 3/5, LLE 4/5, gait and stance not assessed Results & Data Results & Data ([facility]) Vital Signs (Past 12 Hours) Vital Signs Temp Pulse Resp BP Pulse Ox O2 Del Method 07/23/22 18:11 37 C 70 20 134/88 97 Room Air Laboratory Results Laboratory Results WBC 8.62 K/ul (4.8-10.8) 07/23/22 18:39 RBC 3.17 M/uL (3.93-5.22) L 07/23/22 18:39 Hgb 9.4 g/dl (12.0-16.0) L 07/23/22 18:39 POC Hgb 7.8 g/dl (12.0-16.0) L 07/23/22 19:02 Hct 28.4 % (34.1-44.9) L 07/23/22 18:39 POC Hct 23 % (37-47) L 07/23/22 19:02 MCV 89.6 fL (80.0-100.0) 07/23/22 18:39 MCH 29.7 pg (25.0-34.0) 07/23/22 18:39 MCHC 33.1 g/dL (32.0-36.0) 07/23/22 18:39 RDW Std Deviation 42.1 fL (36.4-46.3) 07/23/22 18:39 RDW Coeff of [place] 12.8 % (11.5-14.5) 07/23/22 18:39 Plt Count 225 K/uL (130-400) 07/23/22 18:39 MPV 10.9 fL (9.4-12.3) 07/23/22 18:39 Immature Gran % (Auto) 0.3 % 07/23/22 18:39 Neut % (Auto) 59.9 % 07/23/22 18:39 Lymph % (Auto) 26.3 % 07/23/22 18:39 [place] % (Auto) 8.8 % 07/23/22 18:39 Eos % (Auto) 3.7 % 07/23/22 18:39 Baso % (Auto) 1.0 % 07/23/22 18:39 Neut # (Auto) 5.15 K/uL (1.4-6.5) 07/23/22 18:39 Lymph # (Auto) 2.27 K/uL (1.2-3.4) 07/23/22 18:39 [place] # (Auto) 0.76 K/uL (0.24-0.82) 07/23/22 18:39 Eos # (Auto) 0.32 K/uL (0-0.50) 07/23/22 18:39 Baso # (Auto) 0.09 K/uL (0-0.2) 07/23/22 18:39 Immature Gran # (Auto) 0.03 K/uL (0.00-0.02) H 07/23/22 18:39 PT 10.1 Seconds (9.0-12.0) 07/23/22 18:39 INR 0.9 (0.9-1.1) 07/23/22 18:39 APTT 25.4 Seconds (21.0-31.0) 07/23/22 18:39 PTT Ratio 0.9 07/23/22 18:39 POC Sodium 139 mmol/L (135-144) 07/23/22 19:02 Sodium 139 mmol/L (136-145) 07/23/22 18:39 POC Potassium 3.7 mmol/L (3.3-5.0) 07/23/22 19:02 Potassium 3.9 mmol/L (3.5-5.1) 07/23/22 18:39 POC Chloride 103 mmol/L (101-112) 07/23/22 19:02 Chloride 104 mmol/L (98-107) 07/23/22 18:39 Carbon Dioxide 27 mmol/L (21-32) 07/23/22 18:39 POC Total CO2 25 mmol/L (24-31) 07/23/22 19:02 Anion Gap 8 (3-11) 07/23/22 18:39 POC Anion Gap 16.0 mmol/L (16-25) 07/23/22 19:02 POC BUN 35 mg/dl (7-18) H 07/23/22 19:02 BUN 41 mg/dl (6-23) H 07/23/22 18:39 Creatinine 4.48 mg/dl (0.6-1.2) H 07/23/22 18:39 POC Creatinine 5.0 mg/dl (0.6-1.3) H* 07/23/22 19:02 Est Cr Clr Drug Dosing 12.8 ml/min 07/23/22 18:39 Est GFR ( Amer) 10.8 ml/min 07/23/22 18:39 Est GFR (Non-Af Amer) 9.3 ml/min 07/23/22 18:39 BUN/Creatinine Ratio 9.2 (10-20) L 07/23/22 18:39 Glucose 137 mg/dl (70-99(Fasting)) H 07/23/22 18:39 POC Glucose (other) 140 mg/dl (70-99) H 07/23/22 19:02 Calcium 8.1 mg/dl (8.5-10.1) L 07/23/22 18:39 POC Ioniz Calcium Tal[place] 1.11 mmol/l (1.12-1.32) L 07/23/22 19:02 Magnesium 1.6 mg/dl (1.7-2.4) L 07/23/22 18:39 Total Bilirubin 0.2 mg/dl (0.2-1.0) 07/23/22 18:39 AST 16 U/L (13-39) 07/23/22 18:39 ALT 11 U/L (7-52) 07/23/22 18:39 Alkaline Phosphatase 58 U/L (34-104) 07/23/22 18:39 Troponin I High Sens 20.2 pg/ml (0-14) H 07/23/22 18:39 Total Protein 5.9 gm/dl (6.0-8.3) L 07/23/22 18:39 Albumin 2.9 gm/dl (3.4-5.0) L 07/23/22 18:39 Globulin 3.0 gm/dl (2.5-4.0) 07/23/22 18:39 Albumin/Globulin Ratio 1.0 (0.9-2) 07/23/22 18:39 SARS-CoV-2, RNA, NAAT NEGATIVE (NEGATIVE) 07/23/22 Unknown Blood Type A Positive 07/23/22 19:30 Antibody Screen NEGATIVE 07/23/22 19:[address] 07/23/22 18:[address] DOSE: 537.48 mGy.cm HISTORY: Slurred speech. Stroke Like Symptoms TECHNIQUE: Multiaxial CT images of the head were performed without the use of intravenous contrast. Automated exposure control was utilized for this study. A dose lowering technique was utilized adhering to the principles of ALARA. Comparison: None. Findings: Polypoid mucosal thickening within the ethmoid air cells and right maxillary sinus. There are postoperative changes within the right paranasal sinuses. The mastoid air cells are clear. The calvarium and skull base are intact. There is no mass, hematoma, midline shift, acute infarct. White matter hypodensity is nonspecific but suggestive of microvascular ischemic change. The ventricles and sulci demonstrate mild age-related involutional changes. Impression: No acute intracranial abnormality. ACT 112: Negative or not required by law. Electronically signed by: Bryan Freeman M.D. 07/23/2022 7:40 PM Diagnostic Findings Chest x-ray per my interpretation: Atelectasis, elevated right hemidiaphragm EKG as per my interpretation :Rate 70, NSR, normal axis, T wave flattening lateral leads
[2022-07-23] MEDS ORDERED: GLUCOSE 40% GEL 15 GM TUBE PO PRN (23:01)
[2022-07-23] MEDS ORDERED: PROMETHAZINE HCL 12.5 MG in SODIUM CHLORIDE 0.9% 50 ML IV PRN (23:01)
[2022-07-23] MEDS ORDERED: ACETAMINOPHEN 325 MG TAB PO PRN (23:01)
[2022-07-23] MEDS ORDERED: DEXTROSE 50% 50 ML SYRINGE IV PRN (23:01)
[2022-07-23] MEDS ORDERED: LANTUS PER UNIT CHARGE SQ SCH (23:01)
[2022-07-23] MEDS ORDERED: traMADol HCL 50 MG TABLET PO PRN (23:01)
[2022-07-23] MEDS ORDERED: GLUCOSE 10 TAB/TUBE PO PRN (23:01)
[2022-07-23] MEDS ORDERED: GLUCAGON FOR INJ 1 MG VIAL SQ PRN (23:01)
[2022-07-23] MEDS ORDERED: CARBOHYDRATES FOR HYPOGLYCEMIA PO PRN (23:01)
[2022-07-23] MEDS: INSULIN ASPART PER UNIT SC SCH (23:22)
[2022-07-24] MEDS: HEPARIN SOD 5,000 UNIT/0.5 ML VIAL SQ SCH ×4 (00:22→21:27)
[2022-07-24] MEDS: LEVOTHYROXINE SODIUM 50 MCG TABLET PO SCH (06:11)
[2022-07-24 07:46] LABS: Basophils # (auto) 0.07 K/uL (0-0.2); Basophils % (auto) 0.9 %; Eosinophils # (auto) 0.47 K/uL (0-0.50); Eosinophils % (auto) 6.3 %; Hematocrit (blood only) 26.3 % (34.1-44.9); Hemoglobin 8.9 g/dl (12.0-16.0); Immature Granulocytes # (auto) 0.02 K/uL (0.00-0.02); Immature Granulocytes % (auto) 0.3 %; Lymphocytes # (auto) 1.76 K/uL (1.2-3.4); Lymphocytes % (auto) 23.5 %; Mean Corpuscular Hemoglobin 30.3 pg (25.0-34.0); Mean Corpuscular Hgb Conc 33.8 g/dL (32.0-36.0); Mean Corpuscular Volume 89.5 fL (80.0-100.0); Monocytes # (auto) 0.58 K/uL (0.24-0.82); Monocytes % (auto) 7.7 %; Neutrophils % (auto) 61.3 %; Platelet Count 194 K/uL (130-400); RDW Coefficient of Variation 12.6 % (11.5-14.5); RDW Standard Deviation 41.2 fL (36.4-46.3); Red Blood Count 2.94 M/uL (3.93-5.22)
[2022-07-24] MEDS: POLYETHYLENE (MIRALAX) 17 GM PACK PO SCH ×2 (07:57→21:27)
[2022-07-24] MEDS: ATORVASTATIN 40 MG TAB PO SCH (07:57)
[2022-07-24] MEDS: GABAPENTIN 300 MG CAP PO SCH ×2 (07:57→21:25)
[2022-07-24] MEDS: CLOPIDOGREL BISULFATE 75 MG TAB PO SCH (07:57)
[2022-07-24] MEDS: ASPIRIN 81 MG ECTAB PO SCH (07:57)
[2022-07-24] MEDS: OXYBUTYNIN CHLORIDE XL 5 MG TABCR PO SCH (07:57)
[2022-07-24] MEDS: PANTOprazole 40 MG TAB PO SCH (07:57)
[2022-07-24] MEDS: DOCUSATE SODIUM 100 MG CAP PO SCH ×2 (07:58→21:25)
[2022-07-24] MEDS: METOPROLOL SUCC 25MG EXT REL TAB PO SCH (07:58)
[2022-07-24] MEDS: INSULIN ASPART PER UNIT SC SCH ×4 (08:10→21:00)
[2022-07-24] MEDS: LANTUS PER UNIT CHARGE SQ SCH ×2 (08:10→22:42)
[2022-07-24 08:12] LABS: BUN Creatinine Ratio 10.2 (10-20); Calcium 7.9 mg/dl (8.5-10.1); Chol HDL Ratio 3.6 (0-5); Creatinine Clr Calc Pharmacy 13.7 ml/min; Est GFR (African American) 11.9 ml/min; Est GFR (Non-African American) 10.3 ml/min; Potassium 3.8 mmol/L (3.5-5.1)
[2022-07-24] MEDS ORDERED: NON-FORMULARY MEDICATION (Food Supplemt, Lactose-Reduced [Ensure] Liquid) PO SCH (09:00)
--- NOTE | 2022-07-24 11:09 | XRay Report ---
XR chest 1V portable CLINICAL HISTORY: Renal failure. COMPARISON STUDY: No previous studies for comparison. FINDINGS: Lung volumes are normal. Lungs are clear. There is no pneumothorax or pleural effusion. Car diac size is normal. Mediastinal contours are normal. There is no evidence for pulmonary edema. IMPRESSION: No acute cardiopulmonary findings. ACT 112: Negative or not required by law. Electronically signed by: Pacheco Culver M.D. 07/24/2022 11:07 AM
--- NOTE | 2022-07-24 11:13 | XRay Report ---
XR ankle RT min 3V routine CLINICAL HISTORY: Right ankle pain following injury. COMPARISON: None FINDINGS: Alignment of the right ankle is anatomic. There is no acute fracture. Talar dome is intact . Ankle soft tissue swelling is noted. This is greater laterally. Plantar and posterior calcaneal spu rring is present. IMPRESSION: 1. No acute fracture or dislocation within the right ankle. 2. Ankle soft tissue swelling. 3. Plantar and posterior calcaneal spurring. ACT 112: Negative or not required by law. Electronically signed by: Pacheco Culver M.D. 07/24/2022 11:12 AM
--- NOTE | 2022-07-24 11:46 | Ultrasound Report ---
ULTRASOUND OF THE CAROTID ARTERIES CLINICAL HISTORY: tia COMPARISON: None available at the time of this dictation. TECHNIQUE: Real-time, grayscale, and color Doppler sonography of the carotid arteries is performed. I mages are reviewed in the transverse and longitudinal planes. FINDINGS: The carotid arteries are patent bilaterally and demonstrate antegrade flow. There is mild atheroscler otic plaque on the right and no atherosclerotic plaque on the left. Normal doppler arterial waveforms are seen throughout. Velocity measurements are listed below. Common carotid peak systolic velocity (cm/sec): RIGHT: 49 LEFT: 47 ICA peak systolic velocity (cm/sec): RIGHT: 79 LEFT: 68 ICA/CC peak systolic ratio: RIGHT: 1.6 LEFT: 1.4 Antegrade flow was shown in the vertebral arteries. The external carotid arteries are patent. IMPRESSION: 1. There is no sonographic evidence of hemodynamically significant stenosis in the right or left car otid arterial system. 2. Antegrade flow is shown in the vertebral arteries. Society of Radiologists in Ultrasound consensus guidelines: Normal: ICA PSV is <125 cm/sec and no plaque or intimal thickening is visible sonographically additional criteria include ICA/CCA PSV ratio <2.0 and ICA EDV <40 cm/sec <50% ICA stenosis: ICA PSV is <125 cm/sec and plaque or intimal thickening is visible sonographically additional criteria include ICA/CCA PSV ratio <2.0 and ICA EDV <40 cm/sec 50-69% ICA stenosis: ICA PSV is 125-230 cm/sec and plaque is visible sonographically additional criteria include ICA/CCA PSV ratio of 2.0-4.0 and ICA EDV of 40-100 cm/sec ?70% ICA stenosis but less than near occlusion: ICA PSV is >230 cm/sec and visible plaque and luminal narrowing are seen at chawla-scale and color Dopp ler ultrasound (the higher the Doppler parameters lie above the threshold of 230 cm/sec, the greater the likelihood of severe disease) additional criteria include ICA/CCA PSV ratio >4 and ICA EDV >100 cm/sec ACT 112: Negative or not required by law. Electronically signed by: Mohit Carracso M.D. 07/24/2022 11:45 AM
[2022-07-24 12:57] LABS: Estimated Average Glucose 171 mg/dl; Hemoglobin A1C 7.6 % (4.5-5.6)
--- NOTE | 2022-07-24 13:00 | Consultation Report ---
NEPHROLOGY CONSULTATION NOTE REASON FOR CONSULTATION: Dialysis patient admitted with stroke-like symptoms. HISTORY OF PRESENT ILLNESS: The patient is a 71-year-old female with ESRD, on peritoneal dialysis at home. She does CCPD with a cycler every night and her son is the one who actually does the peritone al dialysis. She was brought to the hospital because of weakness, especially in the right lower extr emity; recent falls, and some question of right facial droop and slurred speech, which was witnessed by the family. At this time, it seems the patient is back to her baseline, but we are still doing wo rkup to rule out stroke. She had a CTA scan of the head done, which did not show any acute abnormali ty. MRI could not be done because of metallic clips in her facial area. The patient's overall healt h is pretty poor and she is quite weak at baseline. She was admitted in [facility] in March of 2022 for multiple falls attributed to chronic lower extremity weakness and after that she w as discharged to [facility] where she stayed from 03/22/2022 to 03/31/2022 bef ore being discharged home. At this time, the patient feels she is back to her baseline. Denies naus ea, vomiting, chest pain, shortness of breath, orthopnea, PND, lower extremity edema, or really any o ther symptoms. PAST MEDICAL AND SURGICAL HISTORY: Includes coronary artery disease, hypertension, hyperlipidemia, b ronchial asthma, type 2 diabetes requiring insulin, hypothyroidism, ESRD, on continuous ambulatory pe ritoneal dialysis, CCPD through cycler; cranial tumor, status post craniofacial surgery with metallic clips; chronic anemia, most likely related with ESRD; rheumatoid arthritis, and anxiety/mood disorde r. ALLERGIES: LISTS to MEPERIDINE. MEDICATIONS: Home medication list was reviewed in detail and is as per the reconciliation list and t he H and P. FAMILY HISTORY: Negative for renal disease or dialysis. SOCIAL HISTORY: The patient never smoked. Occasional alcohol. Currently lives with her son and epifanio [id number]. No oxygen. On no walking aid. REVIEW OF SYSTEMS: Twelve systems reviewed and negative. Positive review of systems detailed in HPI . PHYSICAL EXAMINATION: GENERAL: Elderly white female, who is not in any overt respiratory distress. She is awake, alert, a nd oriented x3 and was able to give me a pretty detailed account of her medical problem. CHEST: Bilaterally clear to auscultation. CARDIOVASCULAR: S1 and S2, regular. ABDOMEN: Soft and nontender. VITAL SIGNS: Blood pressure is 145/76, pulse rate is 68, temperature is 36.9, and 95% on room air. ABDOMEN: Soft and nontender. EXTREMITIES: Show trace edema. LABORATORY TESTS: Hemoglobin 8.9 and WBC count 7.5. Creatinine is 4.13, sodium 137, potassium 3.8, BUN 42, and calcium 7.9. ASSESSMENT AND PLAN: A 71-year-old female with multiple medical problems including long-standing renetta betes with end-stage renal disease, on continuous cyclic peritoneal dialysis at home, now admitted wi th a fall, weakness, and stroke-like symptoms. End-stage renal disease: She did not get dialysis yesterday. She still has decent residual renal fu nction left. We will do continuous cyclic peritoneal dialysis tonight in the hospital. We will obta in her outpatient prescription from [facility]. I did tell her that because of the nursing scheduling, her total duration of dialysis will be longer than 8 hours, which is normally what she d oes at home. No overt fluid or electrolyte issue at this time. Her hemoglobin is low and we will gi ve her ESAs if she is getting as an outpatient. Thank you very much for the consult. Job ID: [id number]
--- NOTE | 2022-07-24 13:38 | CT Scan Report ---
CT head/brain wo con CLINICAL HISTORY: 71 years-old Female with cva, ffup. Acute strokelike symptoms TECHNIQUE: Multiple axial CT images of the head were obtained without contrast. A dose lowering tech nique was utilized adhering to the principles of ALARA. CT DOSE: 614.27 mGy.cm COMPARISON: Head CT 07/23/2022 FINDINGS: No acute intracranial hemorrhage, midline shift, intracranial mass, hydrocephalus, territorial ischem ia or abnormal extra-axial collection. Age-related involutional changes. White matter hypodensities s uggest chronic microvascular ischemic disease. The study is mildly motion degraded. Cerebral vascular calcifications. The calvarium is intact. Chronic postoperative changes of the paranasal sinuses and nasal turbinates are noted. Mastoid air cells are clear. IMPRESSION: No acute intracranial abnormality. ACT 112: Negative or not required by law. The above report was generated using voice recognition software. It may contain grammatical, syntax o r spelling errors. Electronically signed by: Tolu Marie M.D. 07/24/2022 1:37 PM
--- NOTE | 2022-07-24 16:52 | Electrocardiogram Report ---
Test Reason : Blood Pressure : / mmHG Vent. Rate : 070 BPM Atrial Rate : 070 BPM P-R Int : 166 ms QRS Dur : 086 ms QT Int : 434 ms P-R-T Axes : 059 010 023 degrees QTc Int : 468 ms Normal sinus rhythm T wave abnormality, consider lateral ischemia Abnormal ECG No previous ECGs available Confirmed by Edward Nicole ([id number]) on 07/24/2022 4:52:19 PM Referred By: REFERRED SELF Confirmed By:Edward Nicole
[2022-07-24] MEDS ORDERED: MELATONIN 3 MG TAB PO SCH (21:00)
[2022-07-24] MEDS ORDERED: MIRTAZAPINE TAB 15 MG TAB PO SCH (21:00)
--- NOTE | 2022-07-24 21:58 | Hospitalist Progress Note ---
Date of Service July 24, 2022 Assessment & Plan (1) TIA (transient ischemic attack): Plan: Present on admission with right facial asymmetry and dysarthria CT head showed no acute intracranial abnormality on admission carotid u/s showed no sonographic evidence of hemodynamically significant stenosis in the right or left carotid arterial system. Antegrade flow is shown in the vertebral arteries. Pt was not able to get MRI done due to metallic clips Repeat CT head today showedno acute intracranial abnormality. 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 Ankle soft tissue swelling. PT/OT eval Pain control chronic anemia, hemoglobin at baseline Traumatic right ankle pain rule out bony injury hx rheumatoid arthritis DVT prophylaxis on Heparin subq DNR Mr. Ashish Richardson, contact #[phone]. Secondary contact is patient's grandson (Mr. Cory Richardson, contact #[phone]). Admission and Anticipated Discharge Date Admission Date: July 23, 2022 Subjective Pt was seen and examined for follow up stroke like symptoms Lying in bed with no acute distress Pt said that she is back to her baseline She said that she walked with therapy in the hallway today Denies any chest pain, palpitation, dizziness and SOB Review of Systems Review of Systems: All systems reviewed & are unremarkable except as noted in Subjective Physical Exam Physical Exam: General- No acute distress Head- atraumatic Eyes- PERRL, EOMI, ENT- oropharynx clear, mild decrease hearing function Neck- supple, no JVD Lungs- clear to auscultation Heart- regular rhythm; no murmur Abdomen- normal bowel sounds, soft, nontender Extremities- no calf tenderness Neuro- alert, oriented, PERRL, EOMI; no facial palsy; no dysarthria Skin- warm & dry Results & Data Results & Data ([facility]) Vital Signs (Past 12 Hours) Vital Signs Temp Pulse Pulse Resp BP Pulse Ox O2 Del Method 07/24/22 20:45 36.8 C 69 18 07/24/22 19:11 36.8 C 70 18 176/90 H 96 Room Air 07/24/22 16:18 37.1 C 69 19 174/76 H 99 Room Air 07/24/22 12:48 36.5 C 67 18 173/79 H 97 Room Air
[2022-07-25] MEDS: HEPARIN SOD 5,000 UNIT/0.5 ML VIAL SQ SCH ×2 (06:14→12:23)
[2022-07-25] MEDS: LEVOTHYROXINE SODIUM 50 MCG TABLET PO SCH (06:14)
[2022-07-25] MEDS: POLYETHYLENE (MIRALAX) 17 GM PACK PO SCH (08:54)
[2022-07-25] MEDS: DOCUSATE SODIUM 100 MG CAP PO SCH (08:54)
[2022-07-25] MEDS: CLOPIDOGREL BISULFATE 75 MG TAB PO SCH (08:55)
[2022-07-25] MEDS: INSULIN ASPART PER UNIT SC SCH ×3 (08:55→18:00)
[2022-07-25] MEDS: GABAPENTIN 300 MG CAP PO SCH (08:56)
[2022-07-25] MEDS: OXYBUTYNIN CHLORIDE XL 5 MG TABCR PO SCH (08:56)
[2022-07-25] MEDS: PANTOprazole 40 MG TAB PO SCH (08:57)
[2022-07-25] MEDS: ATORVASTATIN 40 MG TAB PO SCH (08:57)
[2022-07-25] MEDS: ASPIRIN 81 MG ECTAB PO SCH (08:57)
[2022-07-25] MEDS: METOPROLOL SUCC 25MG EXT REL TAB PO SCH (08:57)
[2022-07-25] MEDS: LANTUS PER UNIT CHARGE SQ SCH (09:00)
--- NOTE | 2022-07-25 10:18 | Dialysis Progress Note ---
Date of Service July 25, 2022 Assessment & Plan Admission and Anticipated Discharge Date Admission Date: July 23, 2022 Subjective Seen for PD. Reviewed PD flowchart--net UF 1200 ml. NO ISsues. PHYSICAL EXAMINATION: GENERAL: Elderly white female, who is not in any overt respiratory distress. She is awake, alert, and oriented x3 and was able to give me a pretty detailed account of her medical problem. CHEST: Bilaterally clear to auscultation. CARDIOVASCULAR: S1 and S2, regular. ABDOMEN: Soft and nontender. ABDOMEN: Soft and nontender. EXTREMITIES: Show trace edema. LABORATORY TESTS: reviewed. ASSESSMENT AND PLAN: A 71-year-old female with multiple medical problems including long-standing diabetes with end-stage renal disease, on continuous cyclic peritoneal dialysis at home, now admitted with a fall, weakness, and stroke-like symptoms. End-stage renal disease: Continue CCPD while inpt. She still has decent residual renal function left. I did tell her that because of the nursing scheduling, her total duration of dialysis will be longer than 8 hours, which is normally what she does at home. No overt fluid or electrolyte issue at this time. Results & Data ([facility]) Vital Signs (Past 12 Hours) Vital Signs Temp Pulse Pulse Resp BP Pulse Ox O2 Del Method 07/25/22 08:00 70 07/25/22 08:52 36.6 C 75 18 07/25/22 07:52 36.6 C 75 18 171/71 H 97 Room Air 07/25/22 02:57 36.5 C 70 18 170/85 H 95 Room Air 07/25/22 00:05 77 07/24/22 23:54 36.8 C 72 20 172/83 H 93 Room Air
[2022-07-25 12:23] LABS: HBSAG NON-REACTIVE (NON-REACTIVE); Hepatitis B Surface Ab, Quant <5 mIU/mL (> OR = 10)
--- NOTE | 2022-07-25 17:09 | Hospitalist Progress Note ---
Date of Service July 25, 2022 Assessment & Plan (1) TIA (transient ischemic attack): Plan: Present on admission with right facial asymmetry and dysarthria CT head showed no acute intracranial abnormality on admission carotid u/s showed no sonographic evidence of hemodynamically significant stenosis in the right or left carotid arterial system. Antegrade flow is shown in the vertebral arteries. Pt was not able to get MRI done due to metallic clips Repeat CT head today showed no acute intracranial abnormality. 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 Ankle soft tissue swelling. PT/OT eval Pain control chronic anemia, hemoglobin at baseline Traumatic right ankle pain rule out bony injury hx rheumatoid arthritis DVT prophylaxis on Heparin subq DNR Mr. Ashish Richardson, contact #[phone]. Secondary contact is patient's grandson (Mr. Cory Richardson, contact #[phone]). Admission and Anticipated Discharge Date Admission Date: July 23, 2022 Subjective Pt was seen and examined for follow up stroke like symptoms Lying in bed with no acute distress Pt said that she is back to her baseline She said that she walked with therapy in the hallway today Denies any chest pain, palpitation, dizziness and SOB Review of Systems Review of Systems: All systems reviewed & are unremarkable except as noted in Subjective Physical Exam Physical Exam: General- No acute distress Head- atraumatic Eyes- PERRL, EOMI, ENT- oropharynx clear, mild decrease hearing function Neck- supple, no JVD Lungs- clear to auscultation Heart- regular rhythm; no murmur Abdomen- normal bowel sounds, soft, nontender Extremities- no calf tenderness Neuro- alert, oriented, PERRL, EOMI; no facial palsy; no dysarthria Skin- warm & dry Results & Data Results & Data ([facility]) Vital Signs (Past 12 Hours) Vital Signs Temp Pulse Pulse Resp BP Pulse Ox O2 Del Method 07/25/22 16:41 74 07/25/22 16:04 36.6 C 68 18 176/93 H 96 Room Air 07/25/22 12:03 36.6 C 75 20 135/74 96 Room Air 07/25/22 08:00 70 07/25/22 08:52 36.6 C 75 18 07/25/22 07:52 36.6 C 75 18 171/71 H 97 Room Air
[2022-07-25] MEDS ORDERED: amLODIPine BESYLATE 5 MG TAB PO SCH (17:15)
--- NOTE | 2022-07-25 17:22 | Discharge Summary ---
Date of Service July 25, 2022 Admission HPI Per Admitting Provider History obtained from patient, family, and records. 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 Last confinement [facility] March 2022 for multiple falls attributed to chronic RLE weakness. Patient discharged to [facility] facility where she stayed from March 22 to 2021 before being discharged home. Patient had another fall at home yesterday after standing on her weaker right lower leg. No head trauma, no chest pain, no syncope. Patient was watching television with her daughter around 1:30 PM when patient was noted to have right facial droop and slurred speech. Usual RLE weakness. No headache, no chest pain, usual SOB on exertion. Patient compliant with home medications. Improving symptoms upon arrival at the ER. 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 Exam Per Admitting Provider GENERAL: Comfortable, slightly hard of hearing, mild dysarthria, obese, no respiratory distress SKIN: Pallor , warm HEENT: Pale, palpebral conjunctivae, no ptosis, mild flattening right nasolabial fold, dry buccal mucosa NECK : Supple, no tenderness CHEST : CTA, no tenderness HEART : RRR, no obvious murmurs ABDOMEN: Some distention, nontender EXTREMITIES : Bilateral LE swelling/, right ankle tenderness, no other conspicuous deformities noted NEUROLOGIC : Coherent, mild flattening of right nasolabial fold, dysarthric, MMTS BUE 4/5, RLE 3/5, LLE 4/5, gait and stance not assessed Principal Diagnosis TIA (transient ischemic attack): ESRD on PD Hypertension Diabetes type 2 Hypothyroidism Dyslipidemia History 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 () Right ankle pain Discharge Exam General- No acute distress Head- atraumatic Eyes- PERRL, EOMI, ENT- oropharynx clear, mild decrease hearing function Neck- supple, no JVD Lungs- clear to auscultation Heart- regular rhythm; no murmur Abdomen- normal bowel sounds, soft, nontender Extremities- no calf tenderness Neuro- alert, oriented, PERRL, EOMI; no facial palsy; no dysarthria Skin- warm & dry Discharge Data Allergies Allergy/AdvReac Type Severity Reaction Status Date / Time meperidine Allergy Intermediate hypotension-passed Verified 08/01/22 09:26 out Consultations 07/23/22 20:21 ED Decision to Admit Stat 07/23/22 22:08 Consult Nephrology Routine Ordered Studies 07/23/22 18:50 CT head/brain wo con Stat 07/24/22 07:00 US carotid doppler BI Routine 07/24/22 13:25 CT head/brain wo con Urgent Laboratory Results WBC 7.50 K/ul (4.8-10.8) 07/24/22 06:49 RBC 2.94 M/uL (3.93-5.22) L 07/24/22 06:49 Hgb 8.9 g/dl (12.0-16.0) L 07/24/22 06:49 POC Hgb 7.8 g/dl (12.0-16.0) L 07/23/22 19:02 Hct 26.3 % (34.1-44.9) L 07/24/22 06:49 POC Hct 23 % (37-47) L 07/23/22 19:02 MCV 89.5 fL (80.0-100.0) 07/24/22 06:49 MCH 30.3 pg (25.0-34.0) 07/24/22 06:49 MCHC 33.8 g/dL (32.0-36.0) 07/24/22 06:49 RDW Std Deviation 41.2 fL (36.4-46.3) 07/24/22 06:49 RDW Coeff of [place] 12.6 % (11.5-14.5) 07/24/22 06:49 Plt Count 194 K/uL (130-400) 07/24/22 06:49 MPV 11.0 fL (9.4-12.3) 07/24/22 06:49 Immature Gran % (Auto) 0.3 % 07/24/22 06:49 Neut % (Auto) 61.3 % 07/24/22 06:49 Lymph % (Auto) 23.5 % 07/24/22 06:49 [place] % (Auto) 7.7 % 07/24/22 06:49 Eos % (Auto) 6.3 % 07/24/22 06:49 Baso % (Auto) 0.9 % 07/24/22 06:49 Neut # (Auto) 4.60 K/uL (1.4-6.5) 07/24/22 06:49 Lymph # (Auto) 1.76 K/uL (1.2-3.4) 07/24/22 06:49 [place] # (Auto) 0.58 K/uL (0.24-0.82) 07/24/22 06:49 Eos # (Auto) 0.47 K/uL (0-0.50) 07/24/22 06:49 Baso # (Auto) 0.07 K/uL (0-0.2) 07/24/22 06:49 Immature Gran # (Auto) 0.02 K/uL (0.00-0.02) 07/24/22 06:49 PT 10.1 Seconds (9.0-12.0) 07/23/22 18:39 INR 0.9 (0.9-1.1) 07/23/22 18:39 APTT 25.4 Seconds (21.0-31.0) 07/23/22 18:39 PTT Ratio 0.9 07/23/22 18:39 POC Sodium 139 mmol/L (135-144) 07/23/22 19:02 Sodium 137 mmol/L (136-145) 07/24/22 06:49 POC Potassium 3.7 mmol/L (3.3-5.0) 07/23/22 19:02 Potassium 3.8 mmol/L (3.5-5.1) 07/24/22 06:49 POC Chloride 103 mmol/L (101-112) 07/23/22 19:02 Chloride 104 mmol/L (98-107) 07/24/22 06:49 Carbon Dioxide 28 mmol/L (21-32) 07/24/22 06:49 POC Total CO2 25 mmol/L (24-31) 07/23/22 19:02 Anion Gap 5 (3-11) 07/24/22 06:49 POC Anion Gap 16.0 mmol/L (16-25) 07/23/22 19:02 POC BUN 35 mg/dl (7-18) H 07/23/22 19:02 BUN 42 mg/dl (6-23) H 07/24/22 06:49 Creatinine 4.13 mg/dl (0.6-1.2) H D 12 06:49 POC Creatinine 5.0 mg/dl (0.6-1.3) H* 07/23/22 19:02 Est Cr Clr Drug Dosing 13.7 ml/min 07/24/22 06:49 Est GFR ( Amer) 11.9 ml/min 07/24/22 06:49 Est GFR (Non-Af Amer) 10.3 ml/min 07/24/22 06:49 BUN/Creatinine Ratio 10.2 (10-20) 07/24/22 06:49 Glucose 121 mg/dl (70-99(Fasting)) H 07/24/22 06:49 POC Glucose 124 mg/dl (70-99) H 07/25/22 16:33 POC Glucose (other) 140 mg/dl (70-99) H 07/23/22 19:02 Estimat Average Glucose 171 mg/dl 07/24/22 06:49 Hemoglobin A1c 7.6 % (4.5-5.6) H 07/24/22 06:49 Calcium 7.9 mg/dl (8.5-10.1) L 12 06:49 POC Ioniz Calcium [place] 1.11 mmol/l (1.12-1.32) L 07/23/22 19:02 Magnesium 1.6 mg/dl (1.7-2.4) L 07/23/22 18:39 Total Bilirubin 0.2 mg/dl (0.2-1.0) 07/23/22 18:39 AST 16 U/L (13-39) 07/23/22 18:39 ALT 11 U/L (7-52) 07/23/22 18:39 Alkaline Phosphatase 58 U/L (34-104) 07/23/22 18:39 Troponin I High Sens 20.2 pg/ml (0-14) H 07/23/22 18:39 Total Protein 5.9 gm/dl (6.0-8.3) L 07/23/22 18:39 Albumin 2.9 gm/dl (3.4-5.0) L 07/23/22 18:39 Globulin 3.0 gm/dl (2.5-4.0) 07/23/22 18:39 Albumin/Globulin Ratio 1.0 (0.9-2) 07/23/22 18:39 Triglycerides 187 mg/dl (0-150) H 07/24/22 06:49 Cholesterol 165 mg/dl (0-200) 07/24/22 06:49 LDL Cholesterol, Calc 82 mg/dl 07/24/22 06:49 VLDL Cholesterol, Calc 37 mg/dl (0-30) H 07/24/22 06:49 HDL Cholesterol 46 mg/dl 07/24/22 06:49 Cholesterol/HDL Ratio 3.6 (0-5) 07/24/22 06:49 Nasal Screen MRSA (PCR) Negative (Negative) 07/24/22 00:55 Hep Bs Antigen NON-REACTIVE (NON-REACTIVE) 07/24/22 10:01 Hep Bs Ag Confirmation TNP 07/24/22 10:01 Hep Bs Antibody, Quant <5 mIU/mL (> OR = 10) L 07/24/22 10:01 SARS-CoV-2, RNA, NAAT NEGATIVE (NEGATIVE) 07/23/22 Unknown Blood Type A Positive 07/23/22 19:30 Antibody Screen NEGATIVE 07/23/22 19:30 Impressions Chest X-Ray 07/23/22 20:39 XR chest 1V portable CLINICAL HISTORY: Renal failure. COMPARISON STUDY: No previous studies for comparison. FINDINGS: Lung volumes are normal. Lungs are clear. There is no pneumothorax or pleural effusion. Cardiac size is normal. Mediastinal contours are normal. There is no evidence for pulmonary edema. IMPRESSION: No acute cardiopulmonary findings. ACT 112: Negative or not required by law. Electronically signed by: Pacheco Culver M.D. 07/24/2022 11:07 AM Ankle X-Ray 07/23/22 22:09 XR ankle RT min 3V routine CLINICAL HISTORY: Right ankle pain following injury. COMPARISON: None FINDINGS: Alignment of the right ankle is anatomic. There is no acute fracture. Talar dome is intact. Ankle soft tissue swelling is noted. This is greater laterally. Plantar and posterior calcaneal spurring is present. IMPRESSION: 1. No acute fracture or dislocation within the right ankle. 2. Ankle soft tissue swelling. 3. Plantar and posterior calcaneal spurring. ACT 112: Negative or not required by law. Electronically signed by: Pacheco Culver M.D. 07/24/2022 11:12 AM Carotid Doppler Study 07/24/22 07:00 ULTRASOUND OF THE CAROTID ARTERIES CLINICAL HISTORY: tia COMPARISON: None available at the time of this dictation. TECHNIQUE: Real-time, grayscale, and color Doppler sonography of the carotid arteries is performed. Images are reviewed in the transverse and longitudinal planes. FINDINGS: The carotid arteries are patent bilaterally and demonstrate antegrade flow. There is mild atherosclerotic plaque on the right and no atherosclerotic plaque on the left. Normal doppler arterial waveforms are seen throughout. Velocity measurements are listed below. Common carotid peak systolic velocity (cm/sec): RIGHT: 49 LEFT: 47 ICA peak systolic velocity (cm/sec): RIGHT: 79 LEFT: 68 ICA/CC peak systolic ratio: RIGHT: 1.6 LEFT: 1.4 Antegrade flow was shown in the vertebral arteries. The external carotid arteries are patent. IMPRESSION: 1. There is no sonographic evidence of hemodynamically significant stenosis in the right or left carotid arterial system. 2. Antegrade flow is shown in the vertebral arteries. Society of Radiologists in Ultrasound consensus guidelines: Normal: ICA PSV is <125 cm/sec and no plaque or intimal thickening is visible sonographically additional criteria include ICA/CCA PSV ratio <2.0 and ICA EDV <40 cm/sec <50% ICA stenosis: ICA PSV is <125 cm/sec and plaque or intimal thickening is visible sonographically additional criteria include ICA/CCA PSV ratio <2.0 and ICA EDV <40 cm/sec 50-69% ICA stenosis: ICA PSV is 125-230 cm/sec and plaque is visible sonographically additional criteria include ICA/CCA PSV ratio of 2.0-4.0 and ICA EDV of 40-100 cm/sec ?70% ICA stenosis but less than near occlusion: ICA PSV is >230 cm/sec and visible plaque and luminal narrowing are seen at chawla-scale and color Doppler ultrasound (the higher the Doppler parameters lie above the threshold of 230 cm/sec, the greater the likelihood of severe disease) additional criteria include ICA/CCA PSV ratio >4 and ICA EDV >100 cm/sec ACT 112: Negative or not required by law. Electronically signed by: Mohit Carrasco M.D. 07/24/2022 11:[address] 07/24/22 13:25 CT head/brain wo con CLINICAL HISTORY: 71 years-old Female with cva, ffup. Acute strokelike symptoms TECHNIQUE: Multiple axial CT images of the head were obtained without contrast. A dose lowering technique was utilized adhering to the principles of ALARA. CT DOSE: 614.27 mGy.cm COMPARISON: Head CT 07/23/2022 FINDINGS: No acute intracranial hemorrhage, midline shift, intracranial mass, hydrocephalus, territorial ischemia or abnormal extra-axial collection. Age- related involutional changes. White matter hypodensities suggest chronic microvascular ischemic disease. The study is mildly motion degraded. Cerebral vascular calcifications. The calvarium is intact. Chronic postoperative changes of the paranasal sinuses and nasal turbinates are noted. Mastoid air cells are clear. IMPRESSION: No acute intracranial abnormality. ACT 112: Negative or not required by law. The above report was generated using voice recognition software. It may contain grammatical, syntax or spelling errors. Electronically signed by: Tolu Marie M.D. 07/24/2022 1:37 PM Hospital Course (1) TIA (transient ischemic attack): Present on admission with right facial asymmetry and dysarthria CT head showed no acute intracranial abnormality on admission carotid u/s showed no sonographic evidence of hemodynamically significant stenosis in the right or left carotid arterial system. Antegrade flow is shown in the vertebral arteries. Pt was not able to get MRI done due to metallic clips Repeat CT head today showedno acute intracranial abnormality. 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 Ankle soft tissue swelling. PT/OT eval Pain control chronic anemia, hemoglobin at baseline Traumatic right ankle pain rule out bony injury hx rheumatoid arthritis DVT prophylaxis on Heparin subq DNR Mr. Ashish Richardson, contact #[phone]. Secondary contact is patient's grandson (Mr. Cory Richardson, contact #[phone]). 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 () Right ankle pain Activity: Resume your previous activity Non-emergency contact: Primary Care Provider and Size Roller Operator Call non-emergency contact if: you have any medication questions and your symptoms worsen Follow-up/Referrals: Susan Guidry DO [Primary Care Provider] - (Date & Time 08/01/2022 11:00 AM Provider Susan Guidry DO [facility] ) Diet: Carb Consistent or DM2 and Dialysis Renal Addtl Attending Provider Instructions: Follow up with your primary care provider 08/01/2022 @ 11:00 AM Susan Guidry DO [facility] Follow up with your nephrology Continue peritoneal dialysis at home Follow a health diabetes diet and limited concentrated sweet intake Continue monitor your blood sugar and bring your blood sugar log at your next appointment with your provider Continue monitor your blood pressure and bring your blood pressure log at your next appointment with your provider seek medical attention if your symptoms reoccur Fall precaution Aspirin changed to plavix 75 mg daily Omeprazole changed to Pantoprazole daily Pending Studies at Discharge: No Stand-Alone Forms: My [facility] [employer], Smoking Cessation Medications and DC Order Prescriptions: New clopidogrel 75 mg Tablet 75 mg PO QAM Qty: 30 0RF pantoprazole 40 mg Tablet,Delayed Release (Dr/Ec) 40 mg PO DAILY Qty: 30 0RF Continued oxybutynin chloride 10 mg tablet extended release 24hr 10 mg PO QAM metoprolol succinate 50 mg tablet extended release 24 hr 50 mg PO DAILY amlodipine 10 mg tablet 10 mg PO DAILY gabapentin 300 mg capsule 300 mg PO QAM gabapentin 300 mg capsule 600 mg PO QPM mirtazapine 15 mg tablet 15 mg PO HS insulin asp prt-insulin aspart [Novolog Mix 70-30FlexPen U-100] 100 unit/mL (70-30) insulin pen 35 unit SUBCUT QPM insulin asp prt-insulin aspart [Novolog Mix 70-30FlexPen U-100] 100 unit/mL (70-30) insulin pen 34 unit SUBCUT QAM atorvastatin 40 mg tablet 40 mg PO DAILY bumetanide 2 mg tablet 4 mg PO [facility] Rx Instructions: has not had for months. It is too expensive. polyethylene glycol 3350 [Miralax] 17 gram Powder In Packet 17 g PO BID isosorbide mononitrate 30 mg tablet extended release 24 hr 30 mg PO QAM tramadol 50 mg tablet 50 mg PO Q4 PRN (Reason: Pain) levothyroxine 50 mcg tablet 50 mcg PO DAILY docusate sodium 100 mg Capsule 100 mg PO BID gentamicin 0.1 % cream 1 applic TOPICAL DAILY Rx Instructions: Apply to peritoneal cath exit Ensure Liquid 1 ea PO BID diclofenac sodium 1 % Gel 0 g TOPICAL DIRECTED PRN (Reason: Pain) Rx Instructions: apply to single elbow, wrist or hand; for hand includes palm/fingers/back of hand cholecalciferol (vitamin D3) [Vitamin D3] 125 mcg (5,000 unit) Tablet 125 mcg PO DAILY melatonin 10 mg Tablet 10 mg PO HS Discontinued omeprazole 40 mg Capsule,Delayed Release(Dr/Ec) 40 mg PO DAILY aspirin [Aspir-81] 81 mg Tablet,Delayed Release (Dr/Ec) 81 mg PO DAILY Discharge Orders: Discharge Order (Routine); Ordered 07/25/22 Ordered By: Jesika Brand/Other Patient Handouts: Managing Type 2 Diabetes Admission Data Admit Date/Time: 07/23/22 22:00 Attending Provider: Jesika Sexton Admit Provider: Antonio Reid Primary Care Provider: Susan Guidry Other Providers: Alonzo Sorenson Other Interventions: Discharge Summary Assessment (RN) Last Done: 07/25/22 18:10
[2022-07-25] MEDS ORDERED: LANTUS PER UNIT CHARGE SQ SCH (21:00)
== END 2022-07-25 18:24 | disposition home or self-care (01) ==
LOC: 4W 18:19 → ED 18:19 → MERGE 22:00 → 4W 22:47
DX: E03.9 Hypothyroidism, unspecified; E78.5 Hyperlipidemia, unspecified; Z79.82 Long term (current) use of aspirin; Z79.4 Long term (current) use of insulin; Z88.8 Allergy status to other drugs, medicaments and biological substances; E11.9 Type 2 diabetes mellitus without complications; J45.909 Unspecified asthma, uncomplicated; N18.6 End stage renal disease; Z99.2 Dependence on renal dialysis; G45.9 Transient cerebral ischemic attack, unspecified; Z79.890 Hormone replacement therapy; I25.10 Atherosclerotic heart disease of native coronary artery without angina pectoris; Z79.899 Other long term (current) drug therapy; I10 Essential (primary) hypertension

== ENCOUNTER 2022-10-06 13:16 | Inpatient (IN) ==
--- NOTE | 2022-10-06 15:03 | Emergency Department Note ---
Impression & Plan Inflammation of peritoneal dialysis catheter site, Abdominal bloating ED Provider Note INFORMANT: Patient ED PROVIDER(S): Antony Gonzales MD CHIEF COMPLAINT: Dialysis catheter site PLAN: Disposition: Admitted Condition: Good Outpatient prescription management: none Referral: None MEDICAL DECISION MAKING: Patient presented because of abdominal discomfort around her dialysis port. Nephrology was already aware and the dialysis nurse did present to the ER and instilled dialysate fluid. This rested for about 2 hours and was drawn off for analysis. Patient CBC and chemistry panel was unremarkable except for end-stage renal disease. I did consult with Dr. Chaparro of nephrology and she evaluated the patient in the ER. She recommended intraperitoneal antibiotics and she ordered those. She did asked for the patient to be admitted by the hospitalist service. She did request a CT scan be performed. This did not reveal any acute findings per radiology. I did discuss this with Dr. Santo of the [facility] hospitalist service. Patient was evaluated in the ER and admitted for further management. After review of the information above and other included data, I feel the patient requires further management in the hospital. Triage Nursing notes reviewed and agree them. Vital Signs: reviewed and remarkable for no significant abnormalities Prior /Outside records reviewed: none Differential diagnosis: Cellulitis, abscess, MRSA infection,dermatitis, SBP, allergic reaction, as well as other pathologies. Diagnostics, as interpreted by me: ECG: none Cardiac Monitoring: Cardiac monitoring ordered by me: The patient was placed on continuous cardiac monitoring and observed. It revealed a normal sinus rhythm at 71 beats per minute without ectopy or evidence of dysrhythmia. Medical decision rules: none Imaging studies: CT scan of the pelvis reveals some fluid and scant amount of free air likely related to the peritoneal dialysis. No obstruction or other emergent findings noted HPI: The patient is a 72year old female who presents to the Emergency Room with complaints of possible infection around her dialysis catheter site. This started few days ago and is persisting. The patient also notes the following associated symptoms, feeling abdominal bloating. Patient is on home peritoneal dialysis. She noted some redness and discomfort around the entrance to the catheter site in the left side of her abdomen. The patient has taken no medication for relieving factors. Current pain is rated as 6/10. Pt denies LOC, headache, fevers, chills, diaphoresis, visual changes, neck pain, chest pain, breathing difficulties, nausea, vomiting, back pain, urinary symptoms, nu mbness, weakness, lymphadenopathy, rash, or other complaints. PAST MEDICAL HISTORY: See Below, end-stage renal disease, TIA, diabetes PAST SURGICAL HISTORY: See Below, cholecystectomy SOCIAL HISTORY: See Below, non-smoker HOME MEDICATIONS: See Below ALLERGIES: See Below VITALS: See Below PHYSICAL EXAMINATION: GENERAL: Awake, alert, well-appearing, in no distress HENT: Normocephalic, atraumatic. Oropharynx unremarkable. EYES: Normal conjunctiva. Sclera non-icteric. NECK: Inspection normal. Non-tender. Supple. No nuchal rigidity. FROM. No masses. RESPIRATORY: Clear to auscultation. No wheezes. No rales. Normal respiratory effort. CARDIAC: Normal rate. Normal rhythm. No murmurs. No rubs. Extremities warm and well perfused. Pulses equal. No JVD. GI: Soft, mildly-distended. Minimal tenderness to palpation around the dialysis catheter site in the left side of the abdomen. There is some very minimal surrounding redness which family states is new.. No rebound or guarding. No masses. RECTAL: Deferred. MUSCULOSKELETAL: Atraumatic. Chest examination reveals no tenderness. The back is symmetrical on inspection without obvious abnormality. There is no CVA tenderness to palpation. No joint edema. LOWER EXTREMITIES: Calves are equal size bilaterally and non-tender. 1+ edema. No discoloration. NEURO: Normal sensorium. No sensory or motor deficits noted. SKIN: No rash or jaundice noted. 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 Family History Other Family history non-contributory Social History (System 08/01/22 @ 09:26 by Yohana Monroe) Smoking Status: Never smoker Hx Alcohol Use: Yes Alcohol type: wine Hx Substance Use: No Preferred Language: Luxembourgish Communication Ability: Effective Will Call Order Clerk Required: No Beliefs That Will Affect Care: None marital status: / Current Living Situation: Family Current Living Situation Comment: Patient lives with son, Ashish and Daughter - in - Law Feels Safe at Home: Yes Assistive Devices: Scooter/Electric Scooter, Walker and Wheelchair Allergies Allergies Allergy/AdvReac Type Severity Reaction Status Date / Time meperidine Allergy Intermediate hypotension-passed Verified 08/01/22 09:26 out Home Meds Home Medications Medication Instructions Recorded Confirmed bumetanide 2 mg tablet 4 mg PO BID 04/20/22 04/20/22 cholecalciferol (vitamin D3) 125 125 mcg PO DAILY 04/20/22 04/20/22 mcg (5,000 unit) tablet (Vitamin D3) omeprazole 40 mg capsule,delayed 40 mg PO QAM 04/20/22 04/20/22 release oxybutynin chloride 10 mg 10 mg PO DAILY 04/20/22 04/20/22 tablet,extended release 24 hr amlodipine 10 mg tablet 10 mg PO DAILY 07/23/22 07/23/22 atorvastatin 40 mg tablet 40 mg PO DAILY 07/23/22 07/23/22 docusate sodium 100 mg capsule 100 mg PO BID 07/23/22 07/23/22 food supplemt, lactose-reduced 1 ea PO BID 07/23/22 07/23/22 (Ensure oral liquid) gabapentin 300 mg capsule 300 mg PO QAM 07/23/22 07/23/22 gabapentin 300 mg capsule 600 mg PO QPM 07/23/22 07/23/22 insulin aspar prot-insulin aspart 34 unit subcut QAM 07/23/22 07/23/22 100 unit/mL (70-30) subcutaneous pen (Novolog Mix 70-30FlexPen U-100) insulin aspar prot-insulin aspart 35 unit subcut QPM 07/23/22 07/23/22 100 unit/mL (70-30) subcutaneous pen (Novolog Mix 70-30FlexPen U-100) isosorbide mononitrate 30 mg 30 mg PO QAM 07/23/22 07/23/22 tablet,extended release 24 hr levothyroxine 50 mcg tablet 50 mcg PO DAILY 07/23/22 07/23/22 melatonin 10 mg tablet 10 mg PO HS 07/23/22 07/23/22 metoprolol succinate 50 mg 50 mg PO DAILY 07/23/22 07/23/22 tablet,extended release 24 hr mirtazapine 15 mg tablet 15 mg PO HS 07/23/22 07/23/22 polyethylene glycol 3350 17 gram 17 g PO BID 07/23/22 07/23/22 oral powder packet (Miralax) tramadol 50 mg tablet 50 mg PO Q4 PRN Pain 07/23/22 07/23/22 Previous Rx's Medication Instructions Recorded aspirin 81 mg tablet,delayed 81 mg PO QAM #30 tabs 04/22/22 release clopidogrel 75 mg tablet 75 mg PO QAM #30 tabs 07/25/22 pantoprazole 40 mg tablet,delayed 40 mg PO DAILY #30 tabs 07/25/22 release Results & Data (ED) Vital Signs Vital Signs - 24 hr 10/06/22 13:19 10/06/22 14:52 10/06/22 15:02 Temperature 36.7 C Temperature Source Temporal Artery Scan Pulse Rate 68 60 Pulse Rate [Apical] 64 Pulse Rhythm [Apical] Pulse Strength [Apical] Respiratory Rate 18 18 Respiratory Effort / Characteristics Respiratory Depth Respiratory Pattern Blood Pressure 131/81 Blood Pressure [Right Arm] 113/72 Blood Pressure Mean 97 Blood Pressure Mean [Right Arm] 85 Blood Pressure Position [Right Arm] Pulse Oximetry 97 97 Oxygen Delivery Method Room Air Sepsis Recent Fever Within 48 Hours No Sepsis New/Unexplained Change in Mental Status No Sepsis Action Taken by Nursing No Action Required 10/06/22 21:00 10/06/22 18:48 10/06/22 22:27 Temperature 36.8 C 36.6 C Temperature Source Oral Oral Pulse Rate 66 Pulse Rate [Apical] 72 71 Pulse Rhythm [Apical] Regular Regular Pulse Strength [Apical] Normal Normal Respiratory Rate 19 18 Respiratory Effort / Characteristics Non-Labored Spontaneous Non-Labored Spontaneous Respiratory Depth Normal Normal Respiratory Pattern Regular Regular Blood Pressure Blood Pressure [Right Arm] 145/77 H 127/90 Blood Pressure Mean Blood Pressure Mean [Right Arm] 99 102 Blood Pressure Position [Right Arm] Lying Lying Pulse Oximetry 95 97 Oxygen Delivery Method Room Air Room Air Sepsis Recent Fever Within 48 Hours Sepsis New/Unexplained Change in Mental Status Sepsis Action Taken by Nursing Laboratory Data 10/06/22 14:06 10/06/22 14:06 Lab Results 10/06/22 10/06/22 10/06/22 Range/Units 14:06 14:06 18:50 WBC 8.63 (4.8-10.8) K/ul RBC 3.50 L (4.20-5.40) M/uL Hgb 10.3 L (12.0-16.0) g/dl Hct 30.6 L (37.0-47.0) % MCV 87.4 (80.0-100.0) fL MCH 29.4 (25.0-34.0) pg MCHC 33.7 (32.0-36.0) g/dL RDW Std Deviation 39.9 (36.4-46.3) fL RDW Coeff of Bethany 12.4 (11.5-14.5) % Plt Count 283 (130-400) K/uL MPV 10.8 (9.4-12.4) fL Immature Gran % (Auto) 0.5 % Neut % (Auto) 67.4 % Lymph % (Auto) 20.5 % Stewart % (Auto) 7.0 % Eos % (Auto) 3.6 % Baso % (Auto) 1.0 % Neut # (Auto) 5.82 (1.40-6.50) K/uL Lymph # (Auto) 1.77 (1.2-3.4) K/uL Stewart # (Auto) 0.60 H (0.11-0.59) K/uL Eos # (Auto) 0.31 (0-0.50) K/uL Baso # (Auto) 0.09 (0-0.2) K/uL Immature Gran # (Auto) 0.04 (0.01-0.20) K/uL Sodium 136 (136-145) mmol/L Potassium 3.8 (3.5-5.1) mmol/L Chloride 100 (98-107) mmol/L Carbon Dioxide 29 (21-32) mmol/L Anion Gap 7 (3-11) BUN 51 H (6-23) mg/dl Creatinine 4.70 H* (0.6-1.2) mg/dl Est Cr Clr Drug Dosing Not Reportable Est GFR ( Amer) 10.1 ml/min Est GFR (Non-Af Amer) 8.7 ml/min BUN/Creatinine Ratio 10.9 (10-20) Glucose 224 H (70-99(Fasting)) mg/dl Calcium 9.1 (8.5-10.1) mg/dl Total Bilirubin 0.2 (0.2-1.0) mg/dl AST 13 (13-39) U/L ALT 12 (7-52) U/L Alkaline Phosphatase 72 (34-104) U/L Total Protein 6.9 (6.0-8.3) gm/dl Albumin 3.4 (3.4-5.0) gm/dl Globulin 3.5 (2.5-4.0) gm/dl Albumin/Globulin Ratio 1.0 (0.9-2) Lipase 33 (11-82) U/L SARS-CoV-2, RNA, NAAT NEGATIVE (NEGATIVE) Administered Medications Vancomycin HCl 1,570 mg/Ceftazidime 1,570 mg/ Heparin Sodium (Porcine) 1,250 units/Peritoneal Dialysis Solution 2,500 mls @ 7,500 mls/hr IP TODAY@2300 CHARLEY Stop: 10/16/22 22:59 Last Admin: 10/06/22 22:30 Dose: 7,500 mls/hr Documented By: MOHAN Discontinued Medications Polyethylene Glycol (Polyethylene (Miralax) 17 Gm Pack) 17 gm PO NOW STA Stop: 10/06/22 20:40 Last Admin: 10/06/22 21:20 Dose: 17 gm Documented By: MOHAN Imaging Data Radiologist's Impression: Abdomen/Pelvis CT 10/06/22 18:23 CT SCAN OF THE ABDOMEN AND PELVIS WITHOUT IV CONTRAST CLINICAL HISTORY: Generalized abdominal pain. COMPARISON STUDY: No priors. TECHNIQUE: CT scan of the abdomen and pelvis is performed from the lung bases to the proximal femora. Images are reviewed in the axial, sagittal, and coronal planes. IV contrast was not administered for this examination. A dose lowering technique was utilized adhering to the principles of ALARA. CT DOSE: 1179.86 mGy.cm FINDINGS: Lung bases: The heart is normal in size and without pericardial effusion. There is a small right pleural effusion and bibasilar atelectasis. A tiny hiatal he rnia is noted. Liver: The unenhanced liver is normal in size, contour, and attenuation. There is no intrahepatic biliary ductal dilatation. Gallbladder: Surgically absent noting clips in the gallbladder fossa. Spleen: Normal in size and attenuation. Pancreas: The unenhanced pancreas is grossly unremarkable. Adrenal glands: Unremarkable. Kidneys: The unenhanced kidneys are atrophic and without hydronephrosis. There are no renal calculi identified. There is no evidence of contour deforming renal mass lesion. Abdominal vasculature: The abdominal aorta is normal in course and caliber noting scattered foci of atherosclerotic calcification. Bowel: There are scattered colonic diverticula without CT evidence of acute diverticulitis. [id number] fecal retention is seen throughout the colon. No bowel obstruction is identified. The appendix is not identified and postsurgical change suggests prior appendectomy. Peritoneum: A peritoneal dialysis catheter is in place from a left periumbilical approach. The tip is coiled in the pelvis. There is trace perihepatic and perisplenic fluid, as well as a small volume of free fluid in the pelvis. There are small foci of intraperitoneal free air seen in the anterior pelvis on image #[id number]. There is a small fat-containing umbilical hernia. Lymphadenopathy: None. Pelvic viscera: The bladder is normal as visualized. The uterus is surgically absent. No adnexal lesion is seen. Skeletal structures: The skeletal structures are osteopenic. There is mild to moderate lumbosacral spondylosis. No lytic or blastic lesions are seen. IMPRESSION: 1. No acute infectious or inflammatory findings are identified in the abdomen or pelvis. 2. A peritoneal dialysis catheter is in place. 3. A small volume of abdominopelvic fluid is nonspecific and likely related to peritoneal dialysis. 4. A small amount of intraperitoneal free air is nonspecific and likely related to peritoneal dialysis. Correlate clinically. 5. Small right pleural effusion. 6. Additional findings as above. ACT 112: Negative or not required by law. Electronically signed by: Chadd Grace M.D. 10/06/2022 7:15 PM Discharge Plan Visit Data Chief Complaint: Infection Stated Complaint: PAIN AROUND PORT ED Provider: Antony Gonzales Discharge Problem: Inflammation of peritoneal dialysis catheter site, Abdominal bloating Forms Stand Alone Forms: My [facility] Meeps Prescriptions Prescriptions: No Action bumetanide 2 mg tablet 4 mg PO BID oxybutynin chloride 10 mg tablet extended release 24hr 10 mg PO DAILY Rx Instructions: DO NOT CRUSH, CHEW OR CUT. omeprazole 40 mg capsule,delayed release(DR/EC) 40 mg PO QAM cholecalciferol (vitamin D3) [Vitamin D3] 125 mcg (5,000 unit) Tablet 125 mcg PO DAILY aspirin 81 mg Tablet,Delayed Release (Dr/Ec) 81 mg PO QAM Qty: 30 0RF metoprolol succinate 50 mg tablet extended release 24 hr 50 mg PO DAILY amlodipine 10 mg tablet 10 mg PO DAILY gabapentin 300 mg capsule 300 mg PO QAM gabapentin 300 mg capsule 600 mg PO QPM mirtazapine 15 mg tablet 15 mg PO HS insulin asp prt-insulin aspart [Novolog Mix 70-30FlexPen U-100] 100 unit/mL (70-30) insulin pen 35 unit SUBCUT QPM insulin asp prt-insulin aspart [Novolog Mix 70-30FlexPen U-100] 100 unit/mL (70-30) insulin pen 34 unit SUBCUT QAM atorvastatin 40 mg tablet 40 mg PO DAILY polyethylene glycol 3350 [Miralax] 17 gram Powder In Packet 17 g PO BID isosorbide mononitrate 30 mg tablet extended release 24 hr 30 mg PO QAM tramadol 50 mg tablet 50 mg PO Q4 PRN (Reason: Pain) levothyroxine 50 mcg tablet 50 mcg PO DAILY docusate sodium 100 mg Capsule 100 mg PO BID Ensure Liquid 1 ea PO BID melatonin 10 mg Tablet 10 mg PO HS clopidogrel 75 mg Tablet 75 mg PO QAM Qty: 30 0RF pantoprazole 40 mg Tablet,Delayed Release (Dr/Ec) 40 mg PO DAILY Qty: 30 0RF Referrals Referrals: Susan Guidry, [Primary Care Provider] -
[2022-10-06 15:04] LABS: Basophils # (auto) 0.09 K/uL (0-0.2); Eosinophils # (auto) 0.31 K/uL (0-0.50); Eosinophils % (auto) 3.6 %; Hematocrit (blood only) 30.6 % (37.0-47.0); Hemoglobin 10.3 g/dl (12.0-16.0); Immature Granulocytes # (auto) 0.04 K/uL (0.01-0.20); Immature Granulocytes % (auto) 0.5 %; Lymphocytes # (auto) 1.77 K/uL (1.2-3.4); Lymphocytes % (auto) 20.5 %; Mean Corpuscular Hemoglobin 29.4 pg (25.0-34.0); Mean Corpuscular Hgb Conc 33.7 g/dL (32.0-36.0); Mean Corpuscular Volume 87.4 fL (80.0-100.0); Mean Platelet Volume 10.8 fL (9.4-12.4); Neutrophils # (auto) 5.82 K/uL (1.40-6.50); Neutrophils % (auto) 67.4 %; Platelet Count 283 K/uL (130-400); RDW Coefficient of Variation 12.4 % (11.5-14.5); RDW Standard Deviation 39.9 fL (36.4-46.3); White Blood Count 8.63 K/ul (4.8-10.8)
[2022-10-06 15:26] LABS: Alanine Aminotransferase 12 U/L (7-52); Albumin Level 3.4 gm/dl (3.4-5.0); Alkaline Phosphatase 72 U/L (34-104); Anion Gap 7 (3-11); Aspartate Aminotransferase 13 U/L (13-39); BUN Creatinine Ratio 10.9 (10-20); Bilirubin,Total 0.2 mg/dl (0.2-1.0); Blood Urea Nitrogen 51 mg/dl (6-23); Calcium 9.1 mg/dl (8.5-10.1); Carbon Dioxide 29 mmol/L (21-32); Chloride 100 mmol/L (98-107); Est GFR (African American) 10.1 ml/min; Est GFR (Non-African American) 8.7 ml/min; Globulin 3.5 gm/dl (2.5-4.0); Glucose 224 mg/dl (70-99(Fasting)); Lipase 33 U/L (11-82); Potassium 3.8 mmol/L (3.5-5.1); Sodium 136 mmol/L (136-145); Total Protein 6.9 gm/dl (6.0-8.3)
--- NOTE | 2022-10-06 18:45 | Nephrology Consultation ---
Date of Consultation October 06, 2022 Assessment & Plan (1) Peritonitis associated with peritoneal dialysis: given stuttering and progressive abdominal pain and recent diarrhea will treat this evening empirically for PD peritonitis and follow up in AM; she had mild redness but no exudate or particular tenderness at exit site, though she is tender along its tract. did have fibrin stranding noted on drain w/ specimen collection. she has no home abtx kit. -f/u pending PD fluid studies and CT scan >will do 6-12 hr dwell of 2L of 2.5% dextrose with 1250 mg each of vancomycin and ceftazidime with 500 units/ L of heparin >>pls order vanco level for am labs >defer to primary service to provide pain control and if needed anti emetic (2) ESRD (end stage renal disease) on dialysis: plan PD trial in AM on cycler. her chemistries and volume status are acceptable currently, though may have slight fluid overload given bibasilar crackles. anemia stable/acceptable for ESRD. -pls check phos in AM -dialysis diet when she is able to take po -continue OP bumex, amlodipine -pls ensure standing bowel regimen with hold parameters for > 1 bm /24 hrs History of Present Illness Reason for Consultation: abdominal pain x 1 wk in PD patient Requesting Physician: Dr Gonzales Attending Physician: Dr Gonzales History of Present Illness 72 y/o F whom I am seeing for abdominal pain in PD patient was sent to ER for evaluation of one week of abdominal pain near the exit site of her PD catheter. The pain is mild to moderate but has been present for about a week and is increasing. It presented generally at exit site and tunnel/track of catheter. PMH includes ESRD on PD, HTN, DM, lumbar radiculopathy/RLE weakness, hypothyroid, class 2 obesity, HL, per her report mild cognitive impairment/memory challenges, chronic ambulatory dysfunction d/t back pain and leg weakness. Admitted here for TIA in July 2022. 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 Has had C diff in the past. also had one episode of peritonitis spring 2021 shortly after starting PD. She dialyzes under my care at [facility]. She still has significant residual renal function so does 4 x 2L exchanges over 8 hours on the cycler. She has a very supportive family who help with dialysis. No n/v/abd pain/diarrhea, no falls, no palpitations, no edema. No change in voiding habits. when she came to the ER I ordered fluid studies which are pending. The dialysis nurse collecting the fluid studies noted drain pain and pain immediately after draining. The patient has noticed more bloating and tells me "I feel like I have a baby in there." no n/v but feels queasy. no decreased po intake. no f/c; for 2 days earlier this week she had watery diarrhea w/ 4-5 BM each day. then these BM stopped; her last BM was about 36 hrs ago. no change in chronic voiding habits or new/worrisome voiding concerns. no dyspnea, no edema. no chest pain or palpitations. Allergies Allergy/AdvReac Type Severity Reaction Status Date / Time meperidine Allergy Intermediate hypotension-passed Verified 08/01/22 09:26 out Home Medications Medication Instructions Recorded Confirmed Type amlodipine 10 mg tablet 10 mg PO DAILY 04/20/22 04/20/22 History bumetanide 2 mg tablet 4 mg PO BID 04/20/22 04/20/22 History cholecalciferol (vitamin D3) 125 125 mcg PO DAILY 04/20/22 04/20/22 History mcg (5,000 unit) tablet (Vitamin D3) citalopram 10 mg tablet 10 mg PO DAILY 04/20/22 04/20/22 History diclofenac sodium 1 % topical gel 2 g topical QID 04/20/22 04/20/22 History docusate sodium 100 mg capsule 100 mg PO BID 04/20/22 04/20/22 History gabapentin 100 mg capsule 200 mg PO TID 04/20/22 04/20/22 History insulin aspar prt-insulin aspart 25 unit subcut BIDM 04/20/22 04/20/22 History 100 unit/mL (70-30) subcutaneous soln (Novolog Mix 70-30 U-100 Insuln) levothyroxine 50 mcg tablet 50 mcg PO DAILYBB 04/20/22 04/20/22 History melatonin 10 mg tablet 10 mg PO HS 04/20/22 04/20/22 History metoprolol succinate 50 mg 50 mg PO DAILY 04/20/22 04/20/22 History tablet,extended release 24 hr omeprazole 40 mg capsule,delayed 40 mg PO QAM 04/20/22 04/20/22 History release oxybutynin chloride 10 mg 10 mg PO DAILY 04/20/22 04/20/22 History tablet,extended release 24 hr polyethylene glycol 3350 17 17 g PO BID 04/20/22 04/20/22 History gram/dose oral powder (Miralax) tramadol 50 mg tablet 50 mg PO Q4H PRN Pain 04/20/22 04/20/22 History aspirin 81 mg tablet,delayed 81 mg PO QAM #30 tabs 04/22/22 Rx release atorvastatin 40 mg tablet 40 mg PO QAM #30 tabs 04/22/22 Rx isosorbide mononitrate 30 mg 30 mg PO QAM #30 tabs 04/22/22 Rx tablet,extended release 24 hr amlodipine 10 mg tablet 10 mg PO DAILY 07/23/22 07/23/22 History atorvastatin 40 mg tablet 40 mg PO DAILY 07/23/22 07/23/22 History bumetanide 2 mg tablet 4 mg PO AMHS 07/23/22 07/23/22 History cholecalciferol (vitamin D3) 125 125 mcg PO DAILY 07/23/22 07/23/22 History mcg (5,000 unit) tablet (Vitamin D3) diclofenac sodium 1 % topical gel 0 g topical DIRECTED PRN Pain 07/23/22 07/23/22 History docusate sodium 100 mg capsule 100 mg PO BID 07/23/22 07/23/22 History food supplemt, lactose-reduced 1 ea PO BID 07/23/22 07/23/22 History (Ensure oral liquid) gabapentin 300 mg capsule 300 mg PO QAM 07/23/22 07/23/22 History gabapentin 300 mg capsule 600 mg PO QPM 07/23/22 07/23/22 History gentamicin 0.1 % topical cream 1 applic topical DAILY 07/23/22 07/23/22 History insulin aspar prot-insulin aspart 34 unit subcut QAM 07/23/22 07/23/22 History 100 unit/mL (70-30) subcutaneous pen (Novolog Mix 70-30FlexPen U-100) insulin aspar prot-insulin aspart 35 unit subcut QPM 07/23/22 07/23/22 History 100 unit/mL (70-30) subcutaneous pen (Novolog Mix 70-30FlexPen U-100) isosorbide mononitrate 30 mg 30 mg PO QAM 07/23/22 07/23/22 History tablet,extended release 24 hr levothyroxine 50 mcg tablet 50 mcg PO DAILY 07/23/22 07/23/22 History melatonin 10 mg tablet 10 mg PO HS 07/23/22 07/23/22 History metoprolol succinate 50 mg 50 mg PO DAILY 07/23/22 07/23/22 History tablet,extended release 24 hr mirtazapine 15 mg tablet 15 mg PO HS 07/23/22 07/23/22 History oxybutynin chloride 10 mg 10 mg PO QAM 07/23/22 07/23/22 History tablet,extended release 24 hr polyethylene glycol 3350 17 gram 17 g PO BID 07/23/22 07/23/22 History oral powder packet (Miralax) tramadol 50 mg tablet 50 mg PO Q4 PRN Pain 07/23/22 07/23/22 History clopidogrel 75 mg tablet 75 mg PO QAM #30 tabs 07/25/22 Rx pantoprazole 40 mg tablet,delayed 40 mg PO DAILY #30 tabs 07/25/22 Rx release Patient History Medical History (Updated 10/06/22 @ 19:29 by Bozena Farias MD, PhD) Ambulatory dysfunction Diabetic neuropathy DM type 2 (diabetes mellitus, type 2) Dyspnea on exertion ESRD (end stage renal disease) on dialysis Exertional chest pain GERD (gastroesophageal reflux disease) Hyperlipidemia Hypertension Lumbar radiculopathy Peritoneal dialysis catheter in place TIA (transient ischemic attack) Surgical History (System 08/01/22 @ 09:26 by Yohana Monroe) 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 Family History Other Family history non-contributory Social History (System 08/01/22 @ 09:26 by Yohana Monroe) Smoking Status: Never smoker Hx Alcohol Use: Yes Alcohol type: wine Hx Substance Use: No Preferred Language: Armenian Communication Ability: Effective Gym Supervisor Required: No Beliefs That Will Affect Care: None marital status: / Current Living Situation: Family Current Living Situation Comment: Patient lives with son, Ashish and Daughter - in - Law Feels Safe at Home: Yes Assistive Devices: Scooter/Electric Scooter, Walker and Wheelchair Review of Systems Review of Systems: All systems reviewed & are unremarkable except as noted in HPI & below Physical Exam Constitutional: well developed, well nourished, + obese, + frail appearing and cooperative; no acute distress Eyes: EOM intact bilaterally ENMT: Ears: + hearing impairment; no external ear abnormality Nose: no external nose abnormality Mouth: + dry oral mucous membranes and + poor dentition Neck: no nuchal rigidity Respiratory: normal respiratory effort; no cough Auscultation: + diminished lung sounds and + crackles (bibasilar) Cardiovascular: RRR, no murmur, no edema Gastrointestinal (Abdomen): Inspection/Auscultation: normal bowel sounds Percussion/Palpation: + abdomen tender (RLQ and lateral R abdomen, supraumbilical), abdomen soft and + hernia; no guarding, abdomen not rigid and no ascites PD catheter in place Musculoskeletal: Extremities: strength 5/5 throughout Skin: no rashes, warm and dry Neurologic: babcock, fluent speech, no tremor Psychiatric: Orientation: alert and oriented x 3 Results & Data ([facility]) Vital Signs (Past 12 Hours) Vital Signs Temp Pulse Pulse Resp BP BP Pulse Ox 10/06/22 15:02 60 10/06/22 14:52 64 18 113/72 97 10/06/22 13:19 36.7 C 68 18 131/81 97 O2 Del Method 10/06/22 15:02 10/06/22 14:52 10/06/22 13:19 Room Air Laboratory Results 10/06/22 14:06 10/06/22 14:[address] a/p non con pending TTE Apr 2022 > EF 65% no WMA, mild CLVH; grade one diastolic dysfunction
--- NOTE | 2022-10-06 19:17 | CT Scan Report ---
CT SCAN OF THE ABDOMEN AND PELVIS WITHOUT IV CONTRAST CLINICAL HISTORY: Generalized abdominal pain. COMPARISON STUDY: No priors. TECHNIQUE: CT scan of the abdomen and pelvis is performed from the lung bases to the proximal femora. Images are reviewed in the axial, sagittal, and coronal planes. IV contrast was not administered for this examination. A dose lowering technique was utilized adhering to the principles of ALARA. CT DOSE: 1179.86 mGy.cm FINDINGS: Lung bases: The heart is normal in size and without pericardial effusion. There is a small right pleu ral effusion and bibasilar atelectasis. A tiny hiatal hernia is noted. Liver: The unenhanced liver is normal in size, contour, and attenuation. There is no intrahepatic royer iary ductal dilatation. Gallbladder: Surgically absent noting clips in the gallbladder fossa. Spleen: Normal in size and attenuation. Pancreas: The unenhanced pancreas is grossly unremarkable. Adrenal glands: Unremarkable. Kidneys: The unenhanced kidneys are atrophic and without hydronephrosis. There are no renal calculi i dentified. There is no evidence of contour deforming renal mass lesion. Abdominal vasculature: The abdominal aorta is normal in course and caliber noting scattered foci of a therosclerotic calcification. Bowel: There are scattered colonic diverticula without CT evidence of acute diverticulitis. Mild-to-m oderate fecal retention is seen throughout the colon. No bowel obstruction is identified. The appendi x is not identified and postsurgical change suggests prior appendectomy. Peritoneum: A peritoneal dialysis catheter is in place from a left periumbilical approach. The tip is coiled in the pelvis. There is trace perihepatic and perisplenic fluid, as well as a small volume of free fluid in the pelvis. There are small foci of intraperitoneal free air seen in the anterior pelv is on image #[id number]. There is a small fat-containing umbilical hernia. Lymphadenopathy: None. Pelvic viscera: The bladder is normal as visualized. The uterus is surgically absent. No adnexal lesi on is seen. Skeletal structures: The skeletal structures are osteopenic. There is mild to moderate lumbosacral sp ondylosis. No lytic or blastic lesions are seen. IMPRESSION: 1. No acute infectious or inflammatory findings are identified in the abdomen or pelvis. 2. A peritoneal dialysis catheter is in place. 3. A small volume of abdominopelvic fluid is nonspecific and likely related to peritoneal dialysis. 4. A small amount of intraperitoneal free air is nonspecific and likely related to peritoneal dialysi s. Correlate clinically. 5. Small right pleural effusion. 6. Additional findings as above. ACT 112: Negative or not required by law. Electronically signed by: Chadd Grace M.D. 10/06/2022 7:15 PM
[2022-10-06] MEDS ORDERED: CEFTAZIDIME IP SCH ×2 (20:00→23:00)
[2022-10-06] MEDS ORDERED: [UNRECOGNIZED DRUG - OTHER] IP SCH ×2 (20:00→23:00)
[2022-10-06] MEDS ORDERED: VANCOMYCIN HCL IP SCH ×2 (20:00→23:00)
[2022-10-06] MEDS ORDERED: HEPARIN SODIUM IP SCH ×2 (20:00→23:00)
[2022-10-06] MEDS ORDERED: [UNRECOGNIZED DRUG - REMARK] ONE ×2 (20:20→23:20)
[2022-10-06] MEDS ORDERED: POLYETHYLENE (MIRALAX) 17 GM PACK PO STA (20:39)
--- NOTE | 2022-10-06 22:09 | History and Physical Report ---
DATE OF ADMISSION: 10/06/2022. CHIEF COMPLAINT: Abdominal pain. HISTORY OF PRESENT ILLNESS: A 72-year-old female with past medical history significant for type 2 diabetes, hyperlipidemia, hypothyroidism, diabetic mononeuropathy, hyperparathyroidism due to vitamin D deficiency and chronic kidney disease, hypertension, GERD, history of CAD, history of end-stage renal disease on peritoneal dialysis, history of degenerative disk disease, lumbar radiculopathy, rheumatoid arthritis, mood disorder, generalized anxiety disorder, depression, comes because of abdominal pain. The patient says on peritoneal dialysis since November . Since last few days, she is having abdominal pain and tenderness around the catheter site and seemed to have some mild redness around the catheter exit site, and Nephrology was admitting the patient for possible peritonitis due to peritoneal dialysis cath. Fluid drained and awaiting cultures and intraperitoneal antibiotics ordered. The patient is currently resting comfortably, hemodynamically stable. Denies any headache. Somewhat hard of hearing. No blurred visions, no runny nose, no sore throat, no cough, no chest pain, no shortness of breath, no nausea. Somewhat constipated. Has some swelling in the legs. She states she ambulates short distances with a walker, but mostly she is in a wheelchair because she is afraid of falling. ALLERGIES: MEPERIDINE. PAST MEDICAL HISTORY: As mentioned above. PAST SURGICAL HISTORY: Face, scalp deep tumor removal long time back, laparoscopic intraperitoneal cannula, nasal endoscopy, partial hysterectomy, cholecystectomy, stereotactic cranial extradural navigation. MEDICATIONS: The patient is on amlodipine 10 mg p.o. daily, aspirin 81 mg p.o. daily, atorvastatin 40 mg p.o. daily, Bumex 4 mg p.o. b.i.d., vitamin D 125 mcg p.o. daily, Plavix 75 mg p.o. daily, Colace 100 mg p.o. b.i.d., Ensure one can p.o. b.i.d., gabapentin 300 mg p.o. a.m., gabapentin 600 mg p.o. q.p.m., NovoLog Mix 70/30, 35 units in the p.m. and 34 units in the a.m., isosorbide mononitrate 30 mg p.o. a.m., levothyroxine 50 mcg p.o. daily, melatonin 10 mg p.o. at bedtime p.r.n., metoprolol succinate 50 mg p.o. daily, mirtazapine 15 mg p.o. at bedtime, Protonix 40 mg p.o. daily, oxybutynin chloride 10 mg p.o. daily, MiraLax 17 g p.o. b.i.d., tramadol 50 mg p.o. q. 4 hours p.r.n. FAMILY HISTORY: Significant for father had leukemia; mother has brain and aorta cancer; sister has cervical cancer and breast cancer; brother has heart disorder. SOCIAL HISTORY: No smoking, no alcohol, no drug use. REVIEW OF SYSTEMS: As per HPI. Rest of the review of systems is negative. PHYSICAL EXAMINATION: GENERAL: The patient is of moderate built, not in acute distress. VITAL SIGNS: Temperature 36.7, pulse 60, respiratory rate 18, blood pressure 113/72, oxygen 97% on room air. HEENT: Pupils equal, round, and reactive to light. Oral mucosa moist. NECK: No JVD, no neck masses. CARDIOVASCULAR: S1 and S2 heard. Regular rate and rhythm. No murmur, no gallop. RESPIRATORY SYSTEM: Normal AP diameter. No accessory muscle use. No wheezing, no crackles. ABDOMEN: Soft, mild diffuse abdominal tenderness, mild guarding, no rigidity, no distention. CENTRAL NERVOUS SYSTEM: Cranial nerves II through XII are grossly intact, nonfocal. EXTREMITIES: No pedal edema present, no erythema seen. LABORATORY DATA: WBC 8.6, hemoglobin 10.3, hematocrit 30.6, platelets 283. Sodium 136, potassium 3.8, chloride 100, bicarbonate 29, BUN 51, creatinine 4.7, serum glucose 224, calcium 9.1, total bilirubin 0.2, AST 13, ALT 12, alkaline phosphatase 72, lipase 33. SARS-CoV-2 rapid test negative. IMAGING DATA: CT of abdomen and pelvis without contrast, no acute infectious inflammatory findings are identified in the abdomen and pelvis. A peritoneal dialysis catheter in place. A small volume of abdominopelvic fluid is nonspecific or likely related to peritoneal dialysis. A small amount of intraperitoneal free air is nonspecific or likely due to peritoneal dialysis. Small right pleural effusion. ASSESSMENT AND PLAN: This is a 72-year-old female who has end-stage renal disease on peritoneal dialysis, presents with abdominal pain, possible peritonitis secondary to peritoneal dialysis catheter. 1. Abdominal pain: Possible peritonitis secondary to peritoneal dialysis catheter. Tenderness in the catheter site and fluid was collected and sent for cultures. Empirically starting with intraperitoneal antibiotics as per the Nephrology. Further antibiotics as per Nephrology. Follow the cultures. Monitor in the hospital. 2. End-stage renal disease: On peritoneal dialysis. Dialysis as per Nephrology. 3. History of hypothyroidism: Continue Synthroid. 4. History of diabetes: Will hold her home NovoLog Mix 70/30. Placed on insulin sliding scale. consulted pharmacy. Follow HbA1c levels. 5. Hypertension: Continue home medications of metoprolol, Imdur, amlodipine, and Bumex. Will monitor the blood pressure. 6. History of coronary artery disease: On aspirin, Plavix, beta beni, and statin. 7. History of hyperlipidemia: On statin. 8. Gastroesophageal reflux disease: On Protonix. 9. Urinary incontinence: On Ditropan. 10. Constipation: On stool softeners. 11. Depression: On Remeron. 12. Deep venous thrombosis prophylaxis: Placed on sequential compression devices and heparin subcutaneously. DISPOSITION: Closely monitor in the [facility]. Expect to discharge home. Follow with family doctor. Level 1 full code. Job ID: [id number] MTDD
[2022-10-07] MEDS ORDERED: DEXTROSE 50% 50 ML SYRINGE IV PRN (00:18)
[2022-10-07] MEDS ORDERED: GLUCAGON FOR INJ 1 MG VIAL SQ PRN (00:18)
[2022-10-07] MEDS ORDERED: NITROGLYCERIN SL 0.4 MG/TAB TAB SL PRN (00:18)
[2022-10-07] MEDS ORDERED: GLUCOSE 40% GEL 15 GM TUBE PO PRN (00:18)
[2022-10-07] MEDS ORDERED: GLUCOSE 10 TAB/TUBE PO PRN (00:18)
[2022-10-07] MEDS ORDERED: CARBOHYDRATES FOR HYPOGLYCEMIA PO PRN (00:18)
[2022-10-07] MEDS ORDERED: POLYETHYLENE (MIRALAX) 17 GM PACK PO PRN (00:18)
[2022-10-07] MEDS ORDERED: INSULIN HUMAN REGULAR PER UNIT 5 UNITS in SYRINGE 4.95 ML IV STA (00:38)
[2022-10-07] MEDS ORDERED: LANTUS PER UNIT CHARGE SQ ONE ×2 (00:45→12:00)
[2022-10-07 00:47] LABS: Appearance Peritoneal Fluid Clear; Color Peritoneal Fluid Colorless; RBC Peritoneal Fluid Auto < 2000 /uL; WBC Peritoneal Fluid Auto 77 /ul (0-300)
[2022-10-07 00:59] LABS: Eosinophils, Fluid 1 %; Mono,Macrophage,Mesothelial 77 %; Neutrophils, Fluid 22 %
[2022-10-07] MEDS: INSULIN ASPART PER UNIT SC SCH ×5 (01:14→20:14)
[2022-10-07] MEDS: BUMETANIDE 1 MG TAB PO SCH ×3 (01:22→20:14)
[2022-10-07] MEDS: MIRTAZAPINE TAB 15 MG TAB PO SCH ×2 (01:22→20:15)
[2022-10-07] MEDS: DOCUSATE SODIUM 100 MG CAP PO SCH ×3 (01:23→20:14)
[2022-10-07] MEDS: MELATONIN 3 MG TAB PO SCH ×2 (01:23→20:13)
[2022-10-07] MEDS: GABAPENTIN 300 MG CAP PO SCH ×3 (01:23→20:16)
[2022-10-07] MEDS: HEPARIN SOD 5,000 UNIT/0.5 ML VIAL SQ SCH ×3 (01:24→20:15)
[2022-10-07] MEDS ORDERED: INSULIN ASPART PER UNIT SC SCH (04:00)
[2022-10-07] MEDS: LEVOTHYROXINE SODIUM 50 MCG TABLET PO SCH (04:10)
[2022-10-07 06:01] LABS: Basophils # (auto) 0.06 K/uL (0-0.2); Basophils % (auto) 0.8 %; Eosinophils # (auto) 0.23 K/uL (0-0.50); Eosinophils % (auto) 3.2 %; Hematocrit (blood only) 29.2 % (37.0-47.0); Immature Granulocytes # (auto) 0.03 K/uL (0.01-0.20); Immature Granulocytes % (auto) 0.4 %; Lymphocytes # (auto) 1.57 K/uL (1.2-3.4); Lymphocytes % (auto) 21.8 %; Mean Corpuscular Hemoglobin 29.8 pg (25.0-34.0); Mean Corpuscular Hgb Conc 34.2 g/dL (32.0-36.0); Mean Corpuscular Volume 86.9 fL (80.0-100.0); Mean Platelet Volume 10.7 fL (9.4-12.4); Monocytes # (auto) 0.51 K/uL (0.11-0.59); Monocytes % (auto) 7.1 %; Neutrophils # (auto) 4.79 K/uL (1.40-6.50); Neutrophils % (auto) 66.7 %; Platelet Count 255 K/uL (130-400); RDW Coefficient of Variation 12.5 % (11.5-14.5); RDW Standard Deviation 39.7 fL (36.4-46.3); Red Blood Count 3.36 M/uL (4.20-5.40); White Blood Count 7.19 K/ul (4.8-10.8)
[2022-10-07 06:23] LABS: BUN Creatinine Ratio 9.7 (10-20); Creatinine Clr Calc Pharmacy 11.7 ml/min; Est GFR (African American) 9.8 ml/min; Est GFR (Non-African American) 8.4 ml/min; Magnesium 1.8 mg/dl (1.7-2.4); Potassium 3.4 mmol/L (3.5-5.1)
[2022-10-07 08:14] LABS: Estimated Average Glucose 209 mg/dl; Hemoglobin A1C 8.9 % (4.5-5.6)
[2022-10-07] MEDS ORDERED: ONDANSETRON INJ 2 MG/ML 2 ML VIAL IV PRN (08:33)
[2022-10-07] MEDS: PANTOprazole 40 MG TAB PO SCH (08:49)
[2022-10-07] MEDS: METOPROLOL SUCC 50MG EXT REL TAB PO SCH (08:49)
[2022-10-07] MEDS: ATORVASTATIN 40 MG TAB PO SCH (08:49)
[2022-10-07] MEDS: ASPIRIN 81 MG ECTAB PO SCH (08:49)
[2022-10-07] MEDS: amLODIPine BESYLATE 5 MG TAB PO SCH (08:49)
[2022-10-07] MEDS: ISOSORBIDE MONO EXTENDED REL 30 MG TABCR PO SCH (08:50)
[2022-10-07] MEDS: OXYBUTYNIN CHLORIDE XL 5 MG TABCR PO SCH (08:51)
[2022-10-07] MEDS: CHOLECALCIFEROL 5,000 UNITS 125 MCG TAB PO SCH (08:51)
[2022-10-07] MEDS: CLOPIDOGREL BISULFATE 75 MG TAB PO SCH (08:53)
[2022-10-07] MEDS: POLYETHYLENE (MIRALAX) 17 GM PACK PO SCH (08:57)
[2022-10-07] MEDS ORDERED: GENTAMICIN SULFATE 0.1% CR 15 GM TUBE EXT SCH (12:15)
--- NOTE | 2022-10-07 13:57 | Dialysis Progress Note ---
Date of Service October 07, 2022 Assessment & Plan (1) Peritonitis associated with peritoneal dialysis: Plan: given stuttering and progressive abdominal pain and recent diarrhea will treat empirically for PD peritonitis; she had mild redness but no exudate or part icular tenderness at exit site on presentation but this is improving, though she is tender along its tract. did have fibrin stranding noted on drain w/ specimen collection. she has no home abtx kit. PD fluid w/ 77 cell count and 22% PMN; PD cx negative; CT a/p unremarkable > this is more a clinical dx for this case than by the book/numbers >this evening will again do 6-8 hr dwell of 2L of 2.5% dextrose with 1250 mg each of vancomycin and ceftazidime with 500 units/ L of heparin >>ordered vanco level for am labs > redose if < 15 which it won't be >defer to primary service to provide pain control and if needed anti emetic (2) ESRD (end stage renal disease) on dialysis: Plan: tolerating cylcer. her chemistries and volume status are acceptable currently, though may have slight fluid overload given bibasilar crackles. anemia stable/acceptable for ESRD. -order in to check phos in AM -taking po but w/ low K no need for dialysis diet; did order 1.8L FR -continue OP bumex, amlodipine -ordered standing bowel regimen with hold parameters for > 1 bm /24 hrs Admission and Anticipated Discharge Date Admission Date: October 06, 2022 Subjective Patient seen during peritoneal dialysis. She continues to have mild intermittent abdominal pain but feels it is overall improved compared to yesterday abdominal pain is diffuse but primarily in right lower quadrant as well as left. No rebound or guarding. She had a large bowel movement yesterday and is voiding without concerns. PD cath site without redness exudate or tenderness per dialysis nurse this morning Review of Systems Review of Systems: All systems reviewed & are unremarkable except as noted in Subjective Physical Exam Constitutional: well developed, well nourished, + obese, + frail appearing and cooperative; no acute distress Eyes: EOM intact bilaterally ENMT: Ears: + hearing impairment; no external ear abnormality Nose: no external nose abnormality Mouth: + dry oral mucous membranes and + poor dentition Neck: no nuchal rigidity Respiratory: normal respiratory effort; no cough Auscultation: + diminished lung sounds and + crackles (bibasilar) Cardiovascular: RRR, no murmur, no edema Gastrointestinal (Abdomen): Inspection/Auscultation: normal bowel sounds Percussion/Palpation: + abdomen tender (RLQ > LLQ and some in PD catheter track ), abdomen soft and + hernia; no guarding, abdomen not rigid and no ascites Musculoskeletal: Extremities: strength 5/5 throughout Skin: no rashes, warm and dry Psychiatric: Orientation: alert and oriented x 3 Results & Data ([facility]) Vital Signs (Past 12 Hours) Vital Signs Temp Pulse Pulse Pulse Resp BP Pulse Ox 10/07/22 08:45 36.8 C 65 18 138/68 10/07/22 11:23 36.4 C L 62 20 120/64 97 10/07/22 07:51 36.8 C 61 18 147/72 H 94 10/07/22 07:37 67 10/07/22 04:00 36.5 C 66 18 133/68 95 O2 Del Method 10/07/22 08:45 10/07/22 11:23 Room Air 10/07/22 07:51 Room Air 10/07/22 07:37 10/07/22 04:00 Room Air Laboratory Results 10/07/22 05:20 10/07/22 05:20
--- NOTE | 2022-10-07 14:11 | Pharmacy Report ---
Pharmacy Glycemic Short Note 2 - Date of Service October 07, 2022 - Glycemic Short BSG Results (Last 24 hours): 10/06/22 10/07/22 10/07/22 14:06 00:24 00:26 Glucose 224 H POC Glucose 338 H* 336 H* 10/07/22 10/07/22 10/07/22 04:15 05:20 07:35 Glucose 163 H POC Glucose 207 H 109 H 10/07/22 11:34 Glucose POC Glucose 238 H OUTPATIENT ANTIDIABETIC REGIMEN: * Novolog 70/30 - 34 units in the morning and 35 units in the evening ASSESSMENT: * Ms Mathias is a 72 y/o F with a PMH of T2DM on peritoneal dialysis who presents with peritonitis. * Currently patient is receiving 4 cycles during the day with a long dwell overnight. The dialysate is 2.5% dextrose. * BSGs yesterday were 338 mg/dL overnight. Patient received Lantus 20 units then an additional 18 units overnight. * Fasting today was 109 mg/dL. * Will start Lantus 20 units BID (in-between weight-based stress 2-3). Patient's home basal dose is 49 units so this represents a 20% reduction which is appropriate for inhouse. * Novolog weight-based stress 2-3. PLAN FOR INPATIENT GLYCEMIC CONTROL: * Basal insulin * Lantus 20 units SQ BID * Bolus insulin * NovoLog per scale ACHS or Q6hrs while NPO * Goal Range: Low 110 mg/dL - High 140 mg/dL * Correction Factor: 20 mg/dL/unit * Nutritional / Prandial insulin per carb ratio of 1 unit per 6 grams CHO consumed
--- NOTE | 2022-10-07 14:37 | Hospitalist Progress Note ---
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 She is being managed for the following: Abdominal pain Possible peritonitis Patient presents with abdominal pain for about a week upon recommendation from nephrology, her pain has stayed same. Patient is a peritoneal dialysis patient. Patient denies fever. Per nephrology, fibrin stranding noted on drain with the specimen collection. Admitting WBC and Pro-Oseas WNL,Admitting CTAP with no acute pathology. Admitting peritoneal dialysis fluid culture: Gram stain with no organisms, culture pending Nephrology on board, patient started on vancomycin and ceftazidime IP per nephrology Patient reports some improvement in her belly pain Pain management and nausea control. Will consult ID. ESRD on peritoneal dialysis: Nephrology on board, appreciate recs. Other chronic medical conditions: Hypothyroidismcontinue Synthroid DMsliding scale insulin while in hospital. Follow-up A1c. HTN: Continue home metoprolol, Imdur, amlodipine, Bumex HLD: Continue statin GERD: Continue home Protonix Urinary incontinence: Continue Ditropan Constipation: Continue stool softener as needed Depression: Continue Remeron DVT prophylaxis: Heparin subcu Full code Admission and Anticipated Discharge Date Admission Date: October 06, 2022 Subjective Patient seen and examined at bedside as a follow-up of abdominal pain in a peritoneal dialysis patient. Patient was lying in bed, on room air, NAD, reports improving belly pain, reports feeling better today, denies any fever or cough or pain or burning while passing urine, had recent diarrhea, denies any flulike symptoms or runny nose, reports eating okay, denies headache or dizziness. Physical Exam Physical Exam: GENERAL: Alert and oriented x3. NAD, on RA. Obese Class II. HEENT: No pallor, no icterus. Pupils equal, round and reactive to light. Oral mucosa moist. NECK: No JVD, no neck masses. HEART: S1 and S2 heard. Regular rate and rhythm. No murmur, no gallop. RESPIRATORY SYSTEM: Normal AP diameter. No accessory muscle use. No wheezing, no crackles. ABDOMEN: Soft, bowel sounds present, diffusely mild tenderness/no rebound or guarding, no distention. Peritoneal dialysis cath entry point w/ minimal erythema/no tenderness or exudate noted. CENTRAL NERVOUS SYSTEM: No facial droop. Speech is clear. Obeys simple commands. Moves extremities. EXTREMITIES: No edema, no erythema seen. Results & Data Results & Data ([facility]) Vital Signs (Past 12 Hours) Vital Signs Temp Pulse Pulse Pulse Resp BP Pulse Ox 10/07/22 08:45 36.8 C 65 18 138/68 10/07/22 11:23 36.4 C L 62 20 120/64 97 10/07/22 07:51 36.8 C 61 18 147/72 H 94 10/07/22 07:37 67 10/07/22 04:00 36.5 C 66 18 133/68 95 O2 Del Method 10/07/22 08:45 10/07/22 11:23 Room Air 10/07/22 07:51 Room Air 10/07/22 07:37 10/07/22 04:00 Room Air
[2022-10-07] MEDS ORDERED: VANCOMYCIN HCL IP SCH (18:00)
[2022-10-07] MEDS ORDERED: [UNRECOGNIZED DRUG - OTHER] IP SCH (18:00)
[2022-10-07] MEDS ORDERED: CEFTAZIDIME IP SCH (18:00)
[2022-10-07] MEDS ORDERED: [UNRECOGNIZED DRUG - REMARK] ONE (18:20)
[2022-10-07] MEDS ORDERED: LANTUS PER UNIT CHARGE SQ SCH (21:00)
[2022-10-08] MEDS: INSULIN ASPART PER UNIT SC SCH ×6 (00:13→21:27)
[2022-10-08] MEDS: LEVOTHYROXINE SODIUM 50 MCG TABLET PO SCH (05:14)
[2022-10-08 07:52] LABS: Hematocrit (blood only) 28.2 % (37.0-47.0); Hemoglobin 9.7 g/dl (12.0-16.0); Mean Corpuscular Hemoglobin 29.7 pg (25.0-34.0); Mean Corpuscular Hgb Conc 34.4 g/dL (32.0-36.0); Mean Corpuscular Volume 86.2 fL (80.0-100.0); Mean Platelet Volume 10.6 fL (9.4-12.4); Platelet Count 255 K/uL (130-400); RDW Coefficient of Variation 12.4 % (11.5-14.5); Red Blood Count 3.27 M/uL (4.20-5.40)
[2022-10-08 08:12] LABS: BUN Creatinine Ratio 10.1 (10-20); Calcium 8.7 mg/dl (8.5-10.1); Creatinine Clr Calc Pharmacy 10.8 ml/min; Est GFR (African American) 8.9 ml/min; Est GFR (Non-African American) 7.7 ml/min; Phosphorus 5.6 mg/dl (2.5-4.9); Potassium 3.7 mmol/L (3.5-5.1)
[2022-10-08] MEDS: amLODIPine BESYLATE 5 MG TAB PO SCH (08:22)
[2022-10-08] MEDS: GABAPENTIN 300 MG CAP PO SCH ×2 (08:23→19:43)
[2022-10-08] MEDS: CLOPIDOGREL BISULFATE 75 MG TAB PO SCH (08:23)
[2022-10-08] MEDS: BUMETANIDE 1 MG TAB PO SCH ×2 (08:23→19:45)
[2022-10-08] MEDS: ASPIRIN 81 MG ECTAB PO SCH (08:23)
[2022-10-08] MEDS: ISOSORBIDE MONO EXTENDED REL 30 MG TABCR PO SCH (08:23)
[2022-10-08] MEDS: OXYBUTYNIN CHLORIDE XL 5 MG TABCR PO SCH (08:23)
[2022-10-08] MEDS: PANTOprazole 40 MG TAB PO SCH (08:23)
[2022-10-08] MEDS: HEPARIN SOD 5,000 UNIT/0.5 ML VIAL SQ SCH ×2 (08:23→19:45)
[2022-10-08] MEDS: DOCUSATE SODIUM 100 MG CAP PO SCH ×2 (08:23→19:44)
[2022-10-08] MEDS: POLYETHYLENE (MIRALAX) 17 GM PACK PO SCH (08:23)
[2022-10-08] MEDS: CHOLECALCIFEROL 5,000 UNITS 125 MCG TAB PO SCH (08:23)
[2022-10-08] MEDS: ATORVASTATIN 40 MG TAB PO SCH (08:23)
[2022-10-08] MEDS: METOPROLOL SUCC 50MG EXT REL TAB PO SCH (08:23)
[2022-10-08] MEDS: PHARMACY GLYCEMIC MGMT CONSULT PRN (08:30)
[2022-10-08] MEDS: LANTUS PER UNIT CHARGE SQ SCH ×2 (08:39→21:27)
--- NOTE | 2022-10-08 12:28 | Pharmacy Report ---
Pharmacy Glycemic Short Note 2 - Date of Service October 08, 2022 - Glycemic Short BSG Results (Last 24 hours): 10/07/22 10/07/22 10/08/22 16:30 20:07 00:11 Glucose POC Glucose 250 H 237 H 166 H 10/08/22 10/08/22 10/08/22 04:06 07:20 07:46 Glucose 161 H POC Glucose 198 H 161 H 10/08/22 11:30 Glucose POC Glucose 259 H OUTPATIENT ANTIDIABETIC REGIMEN: * Novolog 70/30 - 34 units in the morning and 35 units in the evening ASSESSMENT: 10/08/22 * Patient's BSGs yesterday were [phone] and overnight were 168-198 mg/dL. Patient received 72 units of insulin yesterday (40 units of basal and 32 units of bolus). * Fasting today is 161 mg/dL. Patient received 3 units of insulin overnight. Dialysate is changing to 1.25% overnight. Will increase Lantus to 24 units B ID. Even with change in dialysate, patient still requires more basal insulin. * BSGs trending upwards throughout the day so tighten Novolog. BACKGROUND * Ms Mathias is a 72 y/o F with a PMH of T2DM on peritoneal dialysis who presents with peritonitis. * Currently patient is receiving 4 cycles during the day with a long dwell overnight. The dialysate is 2.5% dextrose. * BSGs yesterday were 338 mg/dL overnight. Patient received Lantus 20 units then an additional 18 units overnight. * Fasting today was 109 mg/dL. * Will start Lantus 20 units BID (in-between weight-based stress 2-3). Patient's home basal dose is 49 units so this represents a 20% reduction which is appropriate for inhouse. * Novolog weight-based stress 2-3. PLAN FOR INPATIENT GLYCEMIC CONTROL: * Basal insulin * Lantus 24 units SQ BID * Bolus insulin * NovoLog per scale ACHS or Q6hrs while NPO * Goal Range: Low 110 mg/dL - High 140 mg/dL * Correction Factor: 18 mg/dL/unit * Nutritional / Prandial insulin per carb ratio of 1 unit per 4 grams CHO consumed
[2022-10-08] MEDS: traMADol HCL 50 MG TABLET PO PRN (13:10)
--- NOTE | 2022-10-08 13:33 | Nephrology Progress Note ---
Date of Service October 08, 2022 Assessment & Plan (1) Peritonitis associated with peritoneal dialysis: Plan: Culture-negative PD peritonitis caught early. Given stuttering and progressive abdominal pain and recent diarrhea will treat this for 10 days (through and including 10/15/22); she had mild redness but no exudate or particular tenderness at exit site, though she is tender along its tract intermittently. did have fibrin stranding noted on drain w/ specimen collection. she has no home abtx kit. -f/u pending PD fluid culture which is negative to date; given fluid studies, do not expect culture to turn positive >will do 6-12 hr dwell of 2L of 1.5% dextrose with 1250 mg of ceftazidime with 500 units/ L of heparin for today in the evening and for tomorrow >defer to primary service to provide pain control and if needed anti emetic PRELIMINARY NEPHROLOGY DISCHARGE RECOMMENDATIONS -discharge tomorrow afternoon AFTER doing a repeat set of fluid set of fluid studies followed by 6-8 hr intraperitoneal antibiotic dwell starting in AM -patient to perform regular PD at home starting tomorrow evening; no change to outpatient dialysis prescription -patient and family member to report to [facility] on 10/10 (time will be determined on 10/09) to have training on doing intraperitoneal antibiotics at home and to receive the antibiotics for completing course of treatment -patient to do daily 2L dwell of 2.5% with 1250 mg ceftazidime and 1000 units heparin through 10/15 to dwell 6-8 hours -on 10/12/22 only, patient is to add 1250 mg vancomycin to intraperitoneal antibiotic dwell (2) ESRD (end stage renal disease) on dialysis: Plan: plan PD trial in AM on cycler. her chemistries and volume status are acceptable currently, though may have slight fluid overload given bibasilar crackles. anemia stable/acceptable for ESRD. -dialysis diet when she is able to take po -continue OP bumex, amlodipine -bowel regimen in place Admission and Anticipated Discharge Date Admission Date: October 06, 2022 Subjective Patient having some sciatic pain and low back pain when I evaluated her today. She did report 1 episode of crampy abdominal pain overnight in the area of her catheter tunnel. No nausea vomiting. Positive bowel movements. No shortness of breath Review of Systems Review of Systems: All systems reviewed & are unremarkable except as noted in Subjective Physical Exam Constitutional: well developed, well nourished, + obese, + frail appearing and cooperative; no acute distress Eyes: EOM intact bilaterally ENMT: Ears: + hearing impairment; no external ear abnormality Nose: no external nose abnormality Mouth: + dry oral mucous membranes and + poor dentition Neck: no nuchal rigidity Respiratory: normal respiratory effort; no cough Auscultation: + diminished lung sounds and + crackles (bibasilar) Cardiovascular: RRR, no murmur, no edema Gastrointestinal (Abdomen): Inspection/Auscultation: normal bowel sounds Percussion/Palpation: + abdomen tender (To moderate palpation in PD catheter track; none BL lower quads), abdomen soft and + hernia; no guarding, abdomen not rigid and no ascites Musculoskeletal: Extremities: strength 5/5 throughout Skin: no rashes, warm and dry Psychiatric: Orientation: alert and oriented x 3 Results & Data ([facility]) Vital Signs (Past 12 Hours) Vital Signs Temp Pulse Pulse Resp BP BP Pulse Ox 10/08/22 11:52 36.4 C L 65 20 138/76 96 10/08/22 07:36 36.9 C 66 19 120/65 10/08/22 07:36 36.9 C 66 19 120/65 93 10/08/22 04:00 36.5 C 75 18 146/74 H 95 O2 Del Method 10/08/22 11:52 Room Air 10/08/22 07:36 10/08/22 07:36 Room Air 10/08/22 04:00 Room Air Laboratory Results 10/08/22 07:20 10/08/22 07:20 Peritoneal dialysate culture no growth to date Vancomycin level 22
--- NOTE | 2022-10-08 16:47 | Hospitalist Progress Note ---
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 She is being managed for the following: Abdominal pain Possible peritonitis Patient presents with abdominal pain for about a week upon recommendation from nephrology, her pain has stayed same. Patient is a peritoneal dialysis patient. Patient denies fever. Per nephrology, fibrin stranding noted on drain with the specimen collection. Admitting WBC and Pro-Oseas WNL,Admitting CTAP with no acute pathology. Admitting peritoneal dialysis fluid culture: Gram stain with no organisms, culture pending Nephrology on board, patient started on vancomycin and ceftazidime IP per nephrology, pt to f/u w/ dialysis center for teaching on IP antibiotic and further recs. Patient reports complete improvement in her diffuse belly pain Pain management and nausea control. d/w nephroniki after IP atb dwell, /u dialysis center on 10/10 for training and receiving additional doses of IP atb. ESRD on peritoneal dialysis: Nephrology on board, appreciate recs. Other chronic medical conditions: Hypothyroidismcontinue Synthroid DMsliding scale insulin while in hospital. Follow-up A1c. HTN: Continue home metoprolol, Imdur, amlodipine, Bumex HLD: Continue statin GERD: Continue home Protonix Urinary incontinence: Continue Ditropan Constipation: Continue stool softener as needed Depression: Continue Remeron DVT prophylaxis: Heparin subcu Full code Dispo: NIKI duarte after atb dwell. Admission and Anticipated Discharge Date Admission Date: October 06, 2022 Subjective Patient seen and examined at bedside as a follow-up of abdominal pain in a peritoneal dialysis patient. Patient was lying in bed, on room air, NAD, reports improving belly pain, had a brief episode of belly in area of catheter tunnel during position change in AM, reports feeling better, denies any fever or cough or pain or burning while passing urine, had recent diarrhea, denies any flulike symptoms or runny nose, reports eating okay, denies headache or dizziness. Physical Exam Physical Exam: GENERAL: Alert and oriented x3. NAD, on RA. Obese Class II. HEENT: No pallor, no icterus. Pupils equal, round and reactive to light. Oral mucosa moist. NECK: No JVD, no neck masses. HEART: S1 and S2 heard. Regular rate and rhythm. No murmur, no gallop. RESPIRATORY SYSTEM: Normal AP diameter. No accessory muscle use. No wheezing, no crackles. ABDOMEN: Soft, bowel sounds present, nontender, no distention. Peritoneal dialysis cath entry point w/ no erythema/no tenderness or exudate noted. CENTRAL NERVOUS SYSTEM: No facial droop. Speech is clear. Obeys simple commands. Moves extremities. EXTREMITIES: No edema, no erythema seen. Results & Data Results & Data ([facility]) Vital Signs (Past 12 Hours) Vital Signs Temp Pulse Pulse Resp BP Pulse Ox O2 Del Method 10/08/22 15:35 36.4 C L 65 19 127/62 95 Room Air 10/08/22 11:52 36.4 C L 65 20 138/76 96 Room Air 10/08/22 07:36 36.9 C 66 19 120/65 10/08/22 07:36 36.9 C 66 19 120/65 93 Room Air
[2022-10-08] MEDS ORDERED: [UNRECOGNIZED DRUG - OTHER] IP SCH (18:00)
[2022-10-08] MEDS ORDERED: CEFTAZIDIME IP SCH (18:00)
[2022-10-08] MEDS ORDERED: HEPARIN BOLUS IP SCH (18:00)
[2022-10-08] MEDS: ACETAMINOPHEN 325 MG TAB PO PRN (19:38)
[2022-10-08] MEDS: MIRTAZAPINE TAB 15 MG TAB PO SCH (19:43)
[2022-10-08] MEDS: MELATONIN 3 MG TAB PO SCH (19:44)
[2022-10-09] MEDS: LEVOTHYROXINE SODIUM 50 MCG TABLET PO SCH (06:30)
[2022-10-09 07:22] LABS: Hematocrit (blood only) 27.4 % (37.0-47.0); Hemoglobin 9.5 g/dl (12.0-16.0); Mean Corpuscular Hemoglobin 29.5 pg (25.0-34.0); Mean Corpuscular Hgb Conc 34.7 g/dL (32.0-36.0); Mean Corpuscular Volume 85.1 fL (80.0-100.0); Platelet Count 239 K/uL (130-400); RDW Coefficient of Variation 12.4 % (11.5-14.5); RDW Standard Deviation 38.5 fL (36.4-46.3); Red Blood Count 3.22 M/uL (4.20-5.40); White Blood Count 6.46 K/ul (4.8-10.8)
[2022-10-09 07:34] LABS: Calcium 8.6 mg/dl (8.5-10.1); Creatinine Clr Calc Pharmacy 9.3 ml/min; Est GFR (African American) 7.4 ml/min; Est GFR (Non-African American) 6.4 ml/min; Potassium 3.9 mmol/L (3.5-5.1)
[2022-10-09] MEDS: amLODIPine BESYLATE 5 MG TAB PO SCH (07:59)
[2022-10-09] MEDS: ASPIRIN 81 MG ECTAB PO SCH (07:59)
[2022-10-09] MEDS: ATORVASTATIN 40 MG TAB PO SCH (08:00)
[2022-10-09] MEDS: BUMETANIDE 1 MG TAB PO SCH ×2 (08:00→20:52)
[2022-10-09] MEDS: DOCUSATE SODIUM 100 MG CAP PO SCH ×2 (08:01→20:52)
[2022-10-09] MEDS: CHOLECALCIFEROL 5,000 UNITS 125 MCG TAB PO SCH (08:01)
[2022-10-09] MEDS: GABAPENTIN 300 MG CAP PO SCH ×2 (08:01→20:53)
[2022-10-09] MEDS: CLOPIDOGREL BISULFATE 75 MG TAB PO SCH (08:01)
[2022-10-09] MEDS: METOPROLOL SUCC 50MG EXT REL TAB PO SCH (08:02)
[2022-10-09] MEDS: HEPARIN SOD 5,000 UNIT/0.5 ML VIAL SQ SCH ×2 (08:02→20:51)
[2022-10-09] MEDS: ISOSORBIDE MONO EXTENDED REL 30 MG TABCR PO SCH (08:02)
[2022-10-09] MEDS: OXYBUTYNIN CHLORIDE XL 5 MG TABCR PO SCH (08:03)
[2022-10-09] MEDS: PANTOprazole 40 MG TAB PO SCH (08:03)
[2022-10-09] MEDS: POLYETHYLENE (MIRALAX) 17 GM PACK PO SCH (08:03)
[2022-10-09] MEDS: INSULIN ASPART PER UNIT SC SCH ×4 (08:16→21:03)
[2022-10-09] MEDS: LANTUS PER UNIT CHARGE SQ SCH ×2 (08:16→21:03)
[2022-10-09] MEDS: PHARMACY GLYCEMIC MGMT CONSULT PRN (08:45)
--- NOTE | 2022-10-09 09:48 | Pharmacy Report ---
Pharmacy Glycemic Short Note 2 - Date of Service October 09, 2022 - Glycemic Short BSG Results (Last 24 hours): 10/08/22 10/08/22 10/08/22 11:30 16:37 20:32 Glucose POC Glucose 259 H 200 H 174 H 10/09/22 10/09/22 06:30 07:38 Glucose 152 H POC Glucose 143 H OUTPATIENT ANTIDIABETIC REGIMEN: * Novolog 70/30 - 34 units in the morning and 35 units in the evening * Patient's A1c = 8.9% today. * However, this result is likely somewhat unreliable in ESRD patients d/t interactions between the A1c analyzing technique and high levels of urea in ESRD, reduced RBC life span, iron deficiency anemia, and EPO administration. HbA1c > 7.5% in ESRD patient may overestimate the extent of hyperglycemia in ESRD patients. ASSESSMENT: 10/09/22: * BSGs midly improved yesterday, but still elevated (ranging 161-259 mg/dL) * Fasting BSG improved this morning at 143 mg/dL - will continue current basal * Novolog parameters tightened yesterday, will plan to continue these tightened parameters 10/08/22: * Patient's BSGs yesterday were [phone] and overnight were 168-198 mg/dL. Patient received 72 units of insulin yesterday (40 units of basal and 32 units of bolus). * Fasting today is 161 mg/dL. Patient received 3 units of insulin overnight. Dialysate is changing to 1.25% overnight. Will increase Lantus to 24 units BID. Even with change in dialysate, patient still requires more basal insulin. * BSGs trending upwards throughout the day so tighten Novolog. BACKGROUND * Ms Mathias is a 72 y/o F with a PMH of T2DM on peritoneal dialysis who presents with peritonitis. * Currently patient is receiving 4 cycles during the day with a long dwell overnight. The dialysate is 2.5% dextrose. * BSGs yesterday were 338 mg/dL overnight. Patient received Lantus 20 units then an additional 18 units overnight. * Fasting today was 109 mg/dL. * Will start Lantus 20 units BID (in-between weight-based stress 2-3). Patient's home basal dose is 49 units so this represents a 20% reduction which is approp riate for inhouse. * Novolog weight-based stress 2-3. PLAN FOR INPATIENT GLYCEMIC CONTROL: * Basal insulin * Lantus 24 units SQ BID * Bolus insulin * NovoLog per scale ACHS or Q6hrs while NPO * Goal Range: Low 110 mg/dL - High 140 mg/dL * Correction Factor: 18 mg/dL/unit * Nutritional / Prandial insulin per carb ratio of 1 unit per 4 grams CHO consumed
[2022-10-09] MEDS ORDERED: CEFTAZIDIME IP SCH (10:00)
[2022-10-09] MEDS ORDERED: [UNRECOGNIZED DRUG - OTHER] IP SCH (10:00)
[2022-10-09] MEDS ORDERED: HEPARIN BOLUS IP SCH (10:00)
[2022-10-09] MEDS ORDERED: [UNRECOGNIZED DRUG - REMARK] ONE (10:20)
--- NOTE | 2022-10-09 10:21 | Dialysis Progress Note ---
Date of Service October 09, 2022 Assessment & Plan Admission and Anticipated Discharge Date Admission Date: October 06, 2022 Subjective Assessment & Plan (1) Peritonitis associated with peritoneal dialysis: Plan: Presumed Culture-negative PD peritonitis Will do 6 hr dwell of 2L of 1.5% dextrose with 1250 mg of ceftazidime with 500 units/ L of heparin for today Then Discharge after that. NEPHROLOGY DISCHARGE RECOMMENDATIONS -discharge afternoon AFTER 6 hr intraperitoneal antibiotic dwell. just sent the PD fluid for repeat Cell count. patient to perform regular PD at home tonight -patient and family member to report to [facility] on 10/10 (time will be determined on 10/09) to have training on doing intraperitoneal antibiotics at home and to receive the antibiotics for completing course of treatment -patient to do daily 2L dwell of 2.5% with 1250 mg ceftazidime and 1000 units heparin through 10/15 to dwell 6-8 hours Subjective No abd pain now. NO feve. No issues with PD exchanges now. Review of Systems Review of Systems: All systems reviewed & are unremarkable except as noted in Subjective Physical Exam Constitutional: well developed, well nourished, + obese, + frail appearing and cooperative; no acute distress Eyes: EOM intact bilaterally ENMT: Ears: + hearing impairment; no external ear abnormality Nose: no external nose abnormality Mouth: + dry oral mucous membranes and + poor dentition Neck: no nuchal rigidity Respiratory: normal respiratory effort; no cough Auscultation: + diminished lung sounds and + crackles (bibasilar) Cardiovascular: RRR, no murmur, no edema Gastrointestinal (Abdomen): Inspection/Auscultation: normal bowel sounds Percussion/Palpation: + abdomen tender (To moderate palpation in PD catheter track; none BL lower quads), abdomen soft and + hernia; no guarding, abdomen not rigid and no ascites Musculoskeletal: Extremities: strength 5/5 throughout Skin: no rashes, warm and dry Psychiatric: Orientation: alert and oriented x 3 Results & Data ([facility]) Vital Signs (Past 12 Hours) Vital Signs Temp Pulse Pulse Resp BP Pulse Ox O2 Del Method 10/09/22 09:16 36.4 C L 65 18 145/79 H 10/09/22 07:33 36.5 C 66 18 137/73 95 Room Air 10/09/22 07:29 78 10/09/22 04:00 36.7 C 67 18 145/73 H 93 Room Air 10/08/22 23:55 36.6 C 64 18 119/70 95 Room Air
[2022-10-09] MEDS: traMADol HCL 50 MG TABLET PO PRN (11:51)
[2022-10-09 13:57] LABS: Appearance Peritoneal Fluid Clear; Color Peritoneal Fluid Colorless; Eosinophils, Fluid 3 %; Lymphocytes, Fluid 14 %; Mono,Macrophage,Mesothelial 70 %; Neutrophils, Fluid 13 %; RBC Peritoneal Fluid Auto < 2000 /uL; WBC Peritoneal Fluid Auto 54 /ul (0-300)
--- NOTE | 2022-10-09 16:04 | Hospitalist Progress Note ---
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 She is being managed for the following: Abdominal pain Possible peritonitis Patient presents with abdominal pain for about a week upon recommendation from nephrology, her pain has stayed same. Patient is a peritoneal dialysis patient. Patient denies fever. Per nephrology, fibrin stranding noted on drain with the specimen collection. Admitting WBC and Pro-Oseas WNL,Admitting CTAP with no acute pathology. Admitting peritoneal dialysis fluid culture: Gram stain with no organisms, culture pending Nephrology on board, patient started on atb IP per nephrology, pt to f/u w/ dialysis center for teaching on IP antibiotic and further recs. Patient reports complete improvement in her diffuse belly pain Pain management and nausea control. d/w nephro 10/09, dc felicia after IP atb dwell, f/u dialysis center on 10/11 for training and receiving additional doses of IP atb. ESRD on peritoneal dialysis: Nephrology on board, appreciate recs. Other chronic medical conditions: Hypothyroidismcontinue Synthroid DMsliding scale insulin while in hospital. Follow-up A1c. HTN: Continue home metoprolol, Imdur, amlodipine, Bumex HLD: Continue statin GERD: Continue home Protonix Urinary incontinence: Continue Ditropan Constipation: Continue stool softener as needed Depression: Continue Remeron DVT prophylaxis: Heparin subcu Full code Dispo: DC felicia after atb dwell. Pt's son Ashish updated regarding ongoing atb Tx, possible dc felicia and need for f/u w/ dialysis center on 10/11. Admission and Anticipated Discharge Date Admission Date: October 06, 2022 Subjective Patient seen and examined at bedside as a follow-up of abdominal pain in a peritoneal dialysis patient. Patient was lying in bed, on room air, NAD, reports no belly pain, reports feeling better, is anxious to go home, denies any fever or cough or pain or burning while passing urine, denies any flulike symptoms or runny nose, reports eating okay, denies headache or dizziness. Physical Exam Physical Exam: GENERAL: Alert and oriented x3. NAD, on RA. Obese Class II. HEENT: No pallor, no icterus. Pupils equal, round and reactive to light. Oral mucosa moist. NECK: No JVD, no neck masses. HEART: S1 and S2 heard. Regular rate and rhythm. No murmur, no gallop. RESPIRATORY SYSTEM: Normal AP diameter. No accessory muscle use. No wheezing, no crackles. ABDOMEN: Soft, bowel sounds present, nontender, no distention. Peritoneal dialysis cath entry point w/ no erythema/no tenderness or exudate noted. CENTRAL NERVOUS SYSTEM: No facial droop. Speech is clear. Obeys simple commands. Moves extremities. EXTREMITIES: No edema, no erythema seen. Results & Data Results & Data ([facility]) Vital Signs (Past 12 Hours) Vital Signs Temp Pulse Pulse Pulse Resp BP BP 10/09/22 15:33 68 10/09/22 14:37 36.3 C L 63 20 146/77 H 10/09/22 08:00 10/09/22 11:06 36.3 C L 65 20 10/09/22 11:06 36.3 C L 65 20 134/72 10/09/22 09:16 36.4 C L 65 18 145/79 H 10/09/22 07:33 36.5 C 66 18 137/73 10/09/22 07:29 78 Pulse Ox O2 Del Method 10/09/22 15:33 10/09/22 14:37 96 Room Air 10/09/22 08:00 Room Air 10/09/22 11:06 10/09/22 11:06 96 Room Air 10/09/22 09:16 10/09/22 07:33 95 Room Air 10/09/22 07:29
[2022-10-09] MEDS: MELATONIN 3 MG TAB PO SCH (20:51)
[2022-10-09] MEDS: MIRTAZAPINE TAB 15 MG TAB PO SCH (20:52)
[2022-10-10] MEDS: ACETAMINOPHEN 325 MG TAB PO PRN (04:58)
[2022-10-10] MEDS: LEVOTHYROXINE SODIUM 50 MCG TABLET PO SCH (05:45)
[2022-10-10] MEDS ORDERED: HEPARIN SODIUM IP ONE (08:00)
[2022-10-10] MEDS ORDERED: [UNRECOGNIZED DRUG - OTHER] IP ONE (08:00)
[2022-10-10] MEDS ORDERED: CEFTAZIDIME IP ONE (08:00)
[2022-10-10] MEDS: HEPARIN SOD 5,000 UNIT/0.5 ML VIAL SQ SCH (08:53)
[2022-10-10] MEDS: BUMETANIDE 1 MG TAB PO SCH (08:53)
[2022-10-10] MEDS: POLYETHYLENE (MIRALAX) 17 GM PACK PO SCH (08:53)
[2022-10-10] MEDS: CHOLECALCIFEROL 5,000 UNITS 125 MCG TAB PO SCH (08:53)
[2022-10-10] MEDS: ATORVASTATIN 40 MG TAB PO SCH (08:53)
[2022-10-10] MEDS: DOCUSATE SODIUM 100 MG CAP PO SCH (08:53)
[2022-10-10] MEDS: ASPIRIN 81 MG ECTAB PO SCH (08:54)
[2022-10-10] MEDS: amLODIPine BESYLATE 5 MG TAB PO SCH (08:56)
[2022-10-10] MEDS: METOPROLOL SUCC 50MG EXT REL TAB PO SCH (08:56)
[2022-10-10] MEDS: OXYBUTYNIN CHLORIDE XL 5 MG TABCR PO SCH (08:56)
[2022-10-10] MEDS: CLOPIDOGREL BISULFATE 75 MG TAB PO SCH (08:56)
[2022-10-10] MEDS: ISOSORBIDE MONO EXTENDED REL 30 MG TABCR PO SCH (08:56)
[2022-10-10] MEDS ORDERED: LANTUS PER UNIT CHARGE SQ SCH (09:00)
[2022-10-10] MEDS ORDERED: LANTUS PER UNIT CHARGE SQ ONE ×2 (09:00→21:00)
[2022-10-10] MEDS: GABAPENTIN 300 MG CAP PO SCH (09:06)
[2022-10-10] MEDS: INSULIN ASPART PER UNIT SC SCH ×3 (09:07→17:21)
[2022-10-10] MEDS: PANTOprazole 40 MG TAB PO SCH (09:08)
--- NOTE | 2022-10-10 09:49 | Dialysis Progress Note ---
Date of Service October 10, 2022 Assessment & Plan Admission and Anticipated Discharge Date Admission Date: October 06, 2022 Subjective Assessment & Plan (1) Peritonitis associated with peritoneal dialysis: Plan: Presumed ?? Culture-negative PD peritonitis. Will do 6 hr dwell of 2L of 1.5% dextrose with 1250 mg of ceftazidime with 500 units/ L of heparin for today Then Discharge after that. NEPHROLOGY DISCHARGE RECOMMENDATIONS -discharge afternoon AFTER 6 hr intraperitoneal antibiotic dwell. patient to perform regular PD at home tonight patient and family member to report to [facility] on 10/11 11AM) ) to have training on doing intraperitoneal antibiotics at home and to receive the antibiotics for completing course of treatment -patient to do daily 2L dwell of 2.5% with 1250 mg ceftazidime and 1000 units heparin through 10/15 to dwell 6-8 hours Subjective Seen during PD. No abd pain now. NO fever. No issues with PD exchanges now. reviewed overnight PD flowsheet. Review of Systems Review of Systems: All systems reviewed & are unremarkable except as noted in Subjective Physical Exam Constitutional: well developed, well nourished, + obese, + frail appearing and cooperative; no acute distress Eyes: EOM intact bilaterally ENMT: Ears: + hearing impairment; no external ear abnormality Nose: no external nose abnormality Mouth: + dry oral mucous membranes and + poor dentition Neck: no nuchal rigidity Respiratory: normal respiratory effort; no cough Auscultation: + diminished lung sounds and + crackles (bibasilar) Cardiovascular: RRR, no murmur, no edema Gastrointestinal (Abdomen): Inspection/Auscultation: normal bowel sounds Percussion/Palpation: + abdomen tender (To moderate palpation in PD catheter track; none BL lower quads), abdomen soft and + hernia; no guarding, abdomen not rigid and no ascites Musculoskeletal: Extremities:trace to 1+ edema Skin: no rashes, warm and dry Psychiatric: Orientation: alert and oriented x 3 Results & Data ([facility]) Vital Signs (Past 12 Hours) Vital Signs Temp Pulse Pulse Pulse Resp BP BP 10/10/22 08:40 36.3 C L 65 20 150/78 H 10/10/22 08:05 36.3 C L 65 20 10/10/22 07:50 36.3 C L 65 20 150/78 H 10/10/22 07:20 36.4 C L 65 20 134/71 02/21/23 07:17 63 10/10/22 02:45 68 18 142/67 H 10/09/22 21:59 60 10/09/22 23:11 36.3 C L 64 20 115/70 Pulse Ox O2 Del Method 10/10/22 08:40 10/10/22 08:05 10/10/22 07:50 95 Room Air 10/10/22 07:20 95 Room Air 10/10/22 07:17 10/10/22 02:45 94 Room Air 10/09/22 21:59 10/09/22 23:11 95 Room Air
--- NOTE | 2022-10-10 11:40 | Discharge Summary ---
Date of Service October 10, 2022 Admission HPI Per Admitting Provider CHIEF COMPLAINT: Abdominal pain. HISTORY OF PRESENT ILLNESS: A 72-year-old female with past medical history significant for type 2 diabetes, hyperlipidemia, hypothyroidism, diabetic mononeuropathy, hyperparathyroidism due to vitamin D deficiency and chronic kidney disease, hypertension, GERD, history of CAD, history of end-stage renal disease on peritoneal dialysis, history of degenerative disk disease, lumbar radiculopathy, rheumatoid arthritis, mood disorder, generalized anxiety disorder, depression, comes because of abdominal pain. The patient says on peritoneal dialysis since November . Since last few days, she is having abdominal pain and tenderness around the catheter site and seemed to have some mild redness around the catheter exit site, and Nephrology was admitting the patient for possible peritonitis due to peritoneal dialysis cath. Fluid drained and awaiting cultures and intraperitoneal antibiotics ordered. The patient is currently resting comfortably, hemodynamically stable. Denies any headache. Somewhat hard of hearing. No blurred visions, no runny nose, no sore throat, no cough, no chest pain, no shortness of breath, no nausea. Somewhat constipated. Has some swelling in the legs. She states she ambulates short distances with a walker, but mostly she is in a wheelchair because she is afraid of falling. ALLERGIES: MEPERIDINE. PAST MEDICAL HISTORY: As mentioned above. PAST SURGICAL HISTORY: Face, scalp deep tumor removal long time back, laparoscopic intraperitoneal cannula, nasal endoscopy, partial hysterectomy, cholecystectomy, stereotactic cranial extradural navigation. MEDICATIONS: The patient is on amlodipine 10 mg p.o. daily, aspirin 81 mg p.o. daily, atorvastatin 40 mg p.o. daily, Bumex 4 mg p.o. b.i.d., vitamin D 125 mcg p.o. daily, Plavix 75 mg p.o. daily, Colace 100 mg p.o. b.i.d., Ensure one can p.o. b.i.d., gabapentin 300 mg p.o. a.m., gabapentin 600 mg p.o. q.p.m., NovoLog Mix 70/30, 35 units in the p.m. and 34 units in the a.m., isosorbide mononitrate 30 mg p.o. a.m., levothyroxine 50 mcg p.o. daily, melatonin 10 mg p.o. at bedtime p.r.n., metoprolol succinate 50 mg p.o. daily, mirtazapine 15 mg p.o. at bedtime, Protonix 40 mg p.o. daily, oxybutynin chloride 10 mg p.o. daily, MiraLax 17 g p.o. b.i.d., tramadol 50 mg p.o. q. 4 hours p.r.n. FAMILY HISTORY: Significant for father had leukemia; mother has brain and aorta cancer; sister has cervical cancer and breast cancer; brother has heart disorder. SOCIAL HISTORY: No smoking, no alcohol, no drug use. REVIEW OF SYSTEMS: As per HPI. Rest of the review of systems is negative. Admission Exam Per Admitting Provider GENERAL: The patient is of moderate built, not in acute distress. VITAL SIGNS: Temperature 36.7, pulse 60, respiratory rate 18, blood pressure 113/72, oxygen 97% on room air. HEENT: Pupils equal, round, and reactive to light. Oral mucosa moist. NECK: No JVD, no neck masses. CARDIOVASCULAR: S1 and S2 heard. Regular rate and rhythm. No murmur, no gallop. RESPIRATORY SYSTEM: Normal AP diameter. No accessory muscle use. No wheezing, no crackles. ABDOMEN: Soft, mild diffuse abdominal tenderness, mild guarding, no rigidity, no distention. CENTRAL NERVOUS SYSTEM: Cranial nerves II through XII are grossly intact, nonfocal. EXTREMITIES: No pedal edema present, no erythema seen. Principal Diagnosis Possible peritonitis associated with peritoneal dialysis Abdominal pain ESRD on peritoneal dialysis Discharge Exam GENERAL: Alert and oriented x3. NAD, on RA. Obese Class II. HEENT: No pallor, no icterus. Pupils equal, round and reactive to light. Oral mucosa moist. NECK: No JVD, no neck masses. HEART: S1 and S2 heard. Regular rate and rhythm. No murmur, no gallop. RESPIRATORY SYSTEM: Normal AP diameter. No accessory muscle use. No wheezing, no crackles. ABDOMEN: Soft, bowel sounds present, nontender, no distention. Peritoneal dialysis cath entry point w/ no erythema/no tenderness or exudate noted. CENTRAL NERVOUS SYSTEM: No facial droop. Speech is clear. Obeys simple commands. Moves extremities. EXTREMITIES: No edema, no erythema seen. Discharge Data Allergies Allergy/AdvReac Type Severity Reaction Status Date / Time meperidine Allergy Intermediate hypotension-passed Verified 08/01/22 09:26 out Consultations 10/06/22 18:47 Consult Nephrology Stat Ordered Studies 10/06/22 18:23 CT Abd and Pelvis [CT abd pelvis wo con] Stat Hospital Course (1) Peritonitis associated with peritoneal dialysis: Plan 72-year-old lady with PMH of T2DM, HLD, hypothyroidism, diabetic mononeuropathy, hyperparathyroidism due to vitamin D deficiency and CKD, HTN, GERD, CAD, ESRD on peritoneal dialysis since November of last year, degenerative disc disease, lumbar radiculopathy, rheumatoid arthritis, mood disorder, generalized anxiety disorder, depression presents 10/06 to the ED with complaint of generalized abdominal pain and pain at peritoneal dialysis catheter entry point since about 1 weeks [employer], 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 She is being managed for the following: Abdominal pain Possible peritonitis Patient presents with abdominal pain for about a week upon recommendation from nephrology, her pain has stayed same. Patient is a peritoneal dialysis patient. Patient denies fever. Per nephrology, fibrin stranding noted on drain with the specimen collection. Admitting WBC and Pro-Oseas WNL,Admitting CTAP with no acute pathology. Admitting peritoneal dialysis fluid culture: Gram stain with no organisms, culture pending Nephrology on board, patient started on atb IP per nephrology, pt to f/u w/ d ialysis center for teaching on IP antibiotic and further recs on 10/11/2022 at 1100hrs, pt aware. Patient reports no further belly pain. Pain management and nausea control. d/w nephro 10/09, dc today after IP atb dwell, f/u dialysis center on 10/11 for training and receiving additional doses of IP atb. ESRD on peritoneal dialysis: Nephrology on board, appreciate recs. Other chronic medical conditions: Hypothyroidismcontinue Synthroid DMsliding scale insulin while in hospital. Follow-up A1c. HTN: Continue home metoprolol, Imdur, amlodipine, Bumex HLD: Continue statin GERD: Continue home Protonix Urinary incontinence: Continue Ditropan Constipation: Continue stool softener as needed Depression: Continue Remeron DVT prophylaxis: Heparin subcu Full code Dispo: DC felicia after atb dwell. Pt's son Ashish updated 10/09 regarding ongoing atb Tx, possible dc felicia and need for f/u w/ dialysis center on 10/11. Patient being discharged to home with following instruction at the point of discharge: Follow-up with your primary care physician within a week, and likely you will need labs CBC/CMP/magnesium/phosphorus. Follow-up with your dialysis center on Sunday at 1100 hrs. for teachings on use of antibiotic and further supplies of antibiotic from them. Take your medications as prescribed. Home Health Attestation I certify that this patient is under my care and that I, or a physicians magistrate assistant working with me, had a face to-face encounter that meets the home health [id number] encounter requirements with this patient. The encounter with the patient was in whole, or in part, for the following medical condition, which is the primary reason for home health care (list medical condition): I certify that, based on my findings, the following services are medically necessary home health services: My clinical findings support the need for the above services because: Further, I certify that my clinical findings support that this patient is homebound (i.e. absences from home require considerable and taxing effort and are for medical reasons or yazidism services or infrequently or of short duration when for other reasons) because: Certification for Home Health Services: Based on the above findings, I certify that this patient is confined to the home and needs intermittent group home care, physical therapy and/or speech therapy or continues to need occupational therapy. The patient is under my care, and I have initiated the establishment of the plan of care. This patient will be followed by a physician who will periodically review the plan of care. Total Time Total Time Spent Total Time Spent (In Minutes): 45 Discharge Plan Discharge Items Patient Disposition: Home - Self-Care Reason For Visit: PD CATH SITE INFECTION Discharge Diagnosis: Possible peritonitis associated with peritoneal dialysis Abdominal pain ESRD on peritoneal dialysis Activity: Resume your previous activity Non-emergency contact: Primary Care Provider Call non-emergency contact if: you have any medication questions Follow-up/Referrals: Susan Guidry DO [Primary Care Provider] - Diet: Carb Consistent or DM2 and Heart Healthy Addtl Attending Provider Instructions: Follow-up with your primary care physician within a week, and likely you will need labs CBC/CMP/magnesium/phosphorus. Follow-up with your dialysis center on Sunday at 1100 hrs. for teachings on use of antibiotic and further supplies of antibiotic from them. Take your medications as prescribed. Pending Studies at Discharge: Yes (10/06 peritoneal dialysis fluid final culture results) Stand-Alone Forms: My [facility], Smoking Cessation Medications and DC Order Prescriptions: Continued bumetanide 2 mg tablet 4 mg PO BID oxybutynin chloride 10 mg tablet extended release 24hr 10 mg PO DAILY Rx Instructions: DO NOT CRUSH, CHEW OR CUT. omeprazole 40 mg capsule,delayed release(DR/EC) 40 mg PO QAM cholecalciferol (vitamin D3) [Vitamin D3] 125 mcg (5,000 unit) Tablet 125 mcg PO DAILY aspirin 81 mg Tablet,Delayed Release (Dr/Ec) 81 mg PO QAM Qty: 30 0RF metoprolol succinate 50 mg tablet extended release 24 hr 50 mg PO DAILY amlodipine 10 mg tablet 10 mg PO DAILY gabapentin 300 mg capsule 300 mg PO QAM gabapentin 300 mg capsule 600 mg PO QPM mirtazapine 15 mg tablet 15 mg PO HS insulin asp prt-insulin aspart [Novolog Mix 70-30FlexPen U-100] 100 unit/mL (70-30) insulin pen 35 unit SUBCUT QPM insulin asp prt-insulin aspart [Novolog Mix 70-30FlexPen U-100] 100 unit/mL (70-30) insulin pen 34 unit SUBCUT QAM atorvastatin 40 mg tablet 40 mg PO DAILY polyethylene glycol 3350 [Miralax] 17 gram Powder In Packet 17 g PO DAILY isosorbide mononitrate 30 mg tablet extended release 24 hr 30 mg PO QAM tramadol 50 mg tablet 50 mg PO Q4 PRN (Reason: Pain) levothyroxine 50 mcg tablet 50 mcg PO DAILY docusate sodium 100 mg Capsule 100 mg PO BID Ensure Liquid 1 ea PO BID melatonin 10 mg Tablet 10 mg PO HS clopidogrel 75 mg Tablet 75 mg PO QAM Qty: 30 0RF pantoprazole 40 mg Tablet,Delayed Release (Dr/Ec) 40 mg PO DAILY Qty: 30 0RF Discharge Orders: Discharge Order (Routine); Ordered 10/10/22 Ordered By: Franci Brand/Other Patient Handouts: High Blood Sugar (Hyperglycemia), Managing Type 2 Diabetes, Special Foot Care for Diabetes Admission Data Admit Date/Time: 10/06/22 20:25 Attending Provider: Franci Yarbrough Admit Provider: Caleb Santo Primary Care Provider: Susan Guidry Other Providers: Bozena Farias
[2022-10-10 15:33] LABS: Hematocrit (blood only) 29.2 % (37.0-47.0); Hemoglobin 10.5 g/dl (12.0-16.0); Mean Corpuscular Hemoglobin 30.3 pg (25.0-34.0); Mean Corpuscular Volume 84.4 fL (80.0-100.0); Mean Platelet Volume 10.8 fL (9.4-12.4); Platelet Count 243 K/uL (130-400); RDW Coefficient of Variation 12.5 % (11.5-14.5); RDW Standard Deviation 37.8 fL (36.4-46.3); Red Blood Count 3.46 M/uL (4.20-5.40)
== END 2022-10-10 18:42 | disposition home or self-care (01) | DRG 919 ==
LOC: ED 13:16 → 2W 20:25

== ENCOUNTER 2023-05-18 13:33 | Inpatient (IN) ==
[2023-05-18] MEDS ORDERED: MoRPHine SULFATE 4 MG/ML 1 ML CARP\\VIAL IV STA (13:57)
[2023-05-18] MEDS ORDERED: ONDANSETRON INJ 2 MG/ML 2 ML VIAL IV STA (13:57)
--- NOTE | 2023-05-18 14:09 | Emergency Department Note ---
Impression & Plan Left hip pain, Closed fracture of left hip, Fall, Dialysis patient ED Provider Note NAME: ANNETTE ARRIETA AGE: 72 SEX: F : 1950 ARRIVES VIA: Ambulance INFORMANT: [Patient][nursing] ED PROVIDER(S): [Chadd Ramirez MD] CHIEF COMPLAINT: Fall HISTORY OF PRESENT ILLNESS: The patient is a 72-year-old female who states that she fell out of her wheelchair onto the hard cement. She fell onto her left hip and now has severe pain in the left hip. The fall occurred about 2 hours ago. She cannot walk on the left leg. No head injury, no neck pain, no back pain. No upper extremity pain. The patient states that she does do peritoneal dialysis. She went through dialysis last evening. PMHx/PSHx: See Below SOCIAL HISTORY: See Below. PHYSICAL EXAM: GENERAL: Patient is in no acute distress. HEENT: No acute trauma, normocephalic atraumatic, mucous membranes moist, no nasal congestion. NECK: No stridor, no adenopathy, no meningismus, trachea is midline. LUNGS: Clear to auscultation bilaterally, no wheeze, no rhonchi, breath sounds equal. HEART: Subtle systolic murmur, regular rate and rhythm. ABDOMEN: Soft, nontender, bowel sounds positive, no peritonitis. Obese. There is a peritoneal dialysis catheter in place in the left upper abdomen. EXTREMITIES: No cyanosis. Mild bilateral pedal edema. The left lower extremity is externally rotated and somewhat shortened. She is tender in the area of the left hip. She has a strong distal left dorsalis pedis pulse. NEUROLOGIC: Oriented x 3, no acute motor or sensory deficits, no focal weakness. SKIN: No rash, no jaundice, no diaphoresis. DIFFERENTIAL DIAGNOSIS: Hip fracture, pelvic fracture, femur or knee fracture, contusion or hematoma, dislocation, among others. EMERGENCY DEPARTMENT COURSE/PROCEDURES: Prior/Outside records reviewed: EMS notes. ECG per my interpretation: Indication was fall. The ECG shows a normal sinus rhythm with a rate of 79. There are some inverted T waves in the high lateral leads. There is no ST elevation, no PVCs. The QTc is 449. Compared to an ECG from 12 October 2022, I see no significant change. Continuous Cardiac Monitoring per my interpretation: An order was placed for co ntinuous cardiac monitoring. The monitor shows a rate of 79 with normal sinus rhythm. MEDICAL DECISION MAKING: There is no leukocytosis or concerning anemia. There is a normal platelet count. No coagulopathy. There is evidence for renal failure consistent with her dialysis needs. No electrolyte abnormality in need of emergent correction. No concerning liver enzyme elevation. COVID test returned negative. Left hip and pelvis films per my review show an intertrochanteric left hip fracture. No pelvic fracture. On exam, patient was tender in the left hip and she had some shortening with external rotation of the left lower extremity. Patient received IV morphine for pain, IV Zofran for nausea, she is more comfortable. I did speak with orthopedics, the patient will be seen for orthopedic intervention. I did speak with the on-call hospitalist. Hospitalization is indicated. The patient is aware of her findings, case management has been involved. Of note, the patient appears to have suffered only the hip fracture, I find no evidence for injury elsewhere by exam or by history. DISPOSITION: Patient's presentation and findings warrant a hospital stay and orthopedic intervention. 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 Family History Other Family history non-contributory Social History Smoking Status: Never smoker Hx Alcohol Use: No Hx Substance Use: No Preferred Language: [place] Communication Ability: Effective Metalizer Required: No Beliefs That Will Affect Care: None marital status: / Current Living Situation: Family Current Living Situation Comment: Patient lives with son, Ashish and Daughter - in - Law Feels Safe at Home: Yes Assistive Devices: Walker and Wheelchair Allergies Allergies Allergy/AdvReac Type Severity Reaction Status Date / Time meperidine Allergy Intermediate hypotension-passed Verified 10/12/22 23:08 out Home Meds Home Medications Medication Instructions Recorded Confirmed bumetanide 2 mg tablet 4 mg PO BID 04/20/22 05/18/23 cholecalciferol (vitamin D3) 125 125 mcg PO DAILY 04/20/22 05/18/23 mcg (5,000 unit) tablet (Vitamin D3) omeprazole 40 mg capsule,delayed 40 mg PO QAM 04/20/22 05/18/23 release amlodipine 10 mg tablet 10 mg PO DAILY 07/23/22 05/18/23 atorvastatin 40 mg tablet 40 mg PO DAILY 07/23/22 05/18/23 docusate sodium 100 mg capsule 100 mg PO BID 07/23/22 05/18/23 food supplemt, lactose-reduced 1 ea PO BID 07/23/22 05/18/23 (Ensure oral liquid) gabapentin 300 mg capsule 300 mg PO QAM 07/23/22 05/18/23 gabapentin 300 mg capsule 600 mg PO QPM 07/23/22 05/18/23 insulin aspar prot-insulin aspart 56 unit subcut QPM 07/23/22 05/18/23 100 unit/mL (70-30) subcutaneous pen (Novolog Mix 70-30FlexPen U-100) insulin aspar prot-insulin aspart 66 unit subcut QAM 07/23/22 05/18/23 100 unit/mL (70-30) subcutaneous pen (Novolog Mix 70-30FlexPen U-100) isosorbide mononitrate 30 mg 30 mg PO QAM 07/23/22 05/18/23 tablet,extended release 24 hr levothyroxine 50 mcg tablet 50 mcg PO DAILY 07/23/22 05/18/23 melatonin 10 mg tablet 10 mg PO HS PRN Sleep 07/23/22 05/18/23 metoprolol succinate 50 mg 50 mg PO DAILY 07/23/22 05/18/23 tablet,extended release 24 hr mirtazapine 15 mg tablet 15 mg PO HS 07/23/22 05/18/23 tramadol 50 mg tablet 50 mg PO Q4 PRN Pain 07/23/22 05/18/23 gentamicin 0.1 % topical cream 1 applic topical DAILY 10/12/22 05/18/23 polyethylene glycol 3350 17 gram 17 g PO BID PRN Constipation 10/12/22 05/18/23 oral powder packet (Miralax) oxybutynin chloride 5 mg tablet 2.5 mg PO DAILY 05/18/23 05/18/23 ropinirole 0.25 mg tablet 0.25 mg PO HS 05/18/23 05/18/23 sevelamer carbonate 800 mg tablet 800 mg PO TID 05/18/23 05/18/23 Previous Rx's Medication Instructions Recorded clopidogrel 75 mg tablet 75 mg PO QAM #30 tabs 07/25/22 pantoprazole 40 mg tablet,delayed 40 mg PO DAILY #30 tabs 07/25/22 release Results & Data (ED) Vital Signs Vital Signs - 24 hr 05/18/23 13:37 05/18/23 13:37 05/18/23 14:12 Temperature 36.4 C L 36.4 C L Temperature Source Oral Oral Pulse Rate 80 77 Pulse Rate [Right Finger] 79 Pulse Rhythm Regular Pulse Rhythm [Right Finger] Regular Pulse Strength Normal Pulse Strength [Right Finger] Normal Respiratory Rate 20 20 Respiratory Effort / Characteristics Non-Labored Non-Labored Respiratory Depth Normal Normal Respiratory Pattern Regular Regular Blood Pressure 156/82 H Blood Pressure [Left Arm] 156/82 H Blood Pressure Mean 106 Blood Pressure Mean [Left Arm] 106 Blood Pressure Position Lying Blood Pressure Position [Left Arm] Lying Pulse Oximetry 96 96 Oxygen Delivery Method Room Air Room Air Sepsis Recent Fever Within 48 Hours No Sepsis New/Unexplained Change in Mental Status N/A Sepsis Action Taken by Nursing No Action Required 05/18/23 14:30 Temperature Temperature Source Pulse Rate Pulse Rate [Right Finger] 74 Pulse Rhythm Pulse Rhythm [Right Finger] Regular Pulse Strength Pulse Strength [Right Finger] Respiratory Rate 16 Respiratory Effort / Characteristics Non-Labored Respiratory Depth Normal Respiratory Pattern Blood Pressure Blood Pressure [Left Arm] 138/80 Blood Pressure Mean Blood Pressure Mean [Left Arm] 99 Blood Pressure Position Blood Pressure Position [Left Arm] Pulse Oximetry 92 Oxygen Delivery Method Room Air Sepsis Recent Fever Within 48 Hours Sepsis New/Unexplained Change in Mental Status Sepsis Action Taken by Skilled Nursing Medications Current Medication List: was personally reviewed by me Laboratory Data Attestation: I reviewed the patient's lab results. 05/18/23 13:53 05/18/23 13:53 Lab Results 05/18/23 05/18/23 05/18/23 Range/Units 13:53 13:53 13:53 WBC 10.07 (4.8-10.8) K/ul RBC 3.92 L (4.20-5.40) M/uL Hgb 12.4 (12.0-16.0) g/dl Hct 35.6 L (37.0-47.0) % MCV 90.8 (80.0-100.0) fL MCH 31.6 (25.0-34.0) pg MCHC 34.8 (32.0-36.0) g/dL RDW Std Deviation 41.5 (36.4-46.3) fL RDW Coeff of Beth[place] 12.8 (11.5-14.5) % Plt Count 264 (130-400) K/uL MPV 10.2 (9.4-12.4) fL Immature Gran % (Auto) 0.6 % Neut % (Auto) 66.1 % Lymph % (Auto) 22.5 % [place] % (Auto) 6.8 % Eos % (Auto) 2.9 % Baso % (Auto) 1.1 % Neut # (Auto) 6.66 H (1.40-6.50) K/uL Lymph # (Auto) 2.27 (1.20-3.40) K/uL [place] # (Auto) 0.68 H (0.11-0.59) K/uL Eos # (Auto) 0.29 (0.00-0.50) K/uL Baso # (Auto) 0.11 (0.00-0.20) K/uL Immature Gran # (Auto) 0.06 (0.01-0.20) K/uL PT 10.8 (9.0-12.0) Seconds INR 1.0 (0.9-1.1) APTT 24.8 (21.0-31.0) Seconds PTT Ratio 0.9 Sodium 137 (136-145) mmol/L Potassium 4.1 (3.5-5.1) mmol/L Chloride 96 L (98-107) mmol/L Carbon Dioxide 26 (21-32) mmol/L Anion Gap 15 H (3-11) BUN 63 H (6-23) mg/dl Creatinine 5.65 H* (0.6-1.2) mg/dl Est Cr Clr Drug Dosing 10.7 ml/min Est GFR ( Amer) 8.1 ml/min Est GFR (Non-Af Amer) 7.0 ml/min BUN/Creatinine Ratio 11.2 (10-20) Glucose 141 H (70-99(Fasting)) mg/dl Calcium 9.5 (8.6-10.3) mg/dl Total Bilirubin 0.3 (0.2-1.0) mg/dl AST 18 (13-39) U/L ALT 14 (7-52) U/L Alkaline Phosphatase 75 (34-104) U/L Total Protein 7.2 (6.0-8.3) gm/dl Albumin 4.0 (3.4-5.0) gm/dl Globulin 3.2 (2.5-4.0) gm/dl Albumin/Globulin Ratio 1.3 (0.9-2) SARS-CoV-2, RNA, NAAT (NEGATIVE) 05/18/23 Range/Units 14:50 WBC (4.8-10.8) K/ul RBC (4.20-5.40) M/uL Hgb (12.0-16.0) g/dl Hct (37.0-47.0) % MCV (80.0-100.0) fL MCH (25.0-34.0) pg MCHC (32.0-36.0) g/dL RDW Std Deviation (36.4-46.3) fL RDW Coeff of Beth[place] (11.5-14.5) % Plt Count (130-400) K/uL MPV (9.4-12.4) fL Immature Gran % (Auto) % Neut % (Auto) % Lymph % (Auto) % [place] % (Auto) % Eos % (Auto) % Baso % (Auto) % Neut # (Auto) (1.40-6.50) K/uL Lymph # (Auto) (1.20-3.40) K/uL [place] # (Auto) (0.11-0.59) K/uL Eos # (Auto) (0.00-0.50) K/uL Baso # (Auto) (0.00-0.20) K/uL Immature Gran # (Auto) (0.01-0.20) K/uL PT (9.0-12.0) Seconds INR (0.9-1.1) APTT (21.0-31.0) Seconds PTT Ratio Sodium (136-145) mmol/L Potassium (3.5-5.1) mmol/L Chloride (98-107) mmol/L Carbon Dioxide (21-32) mmol/L Anion Gap (3-11) BUN (6-23) mg/dl Creatinine (0.6-1.2) mg/dl Est Cr Clr Drug Dosing ml/min Est GFR ( Amer) ml/min Est GFR (Non-Af Amer) ml/min BUN/Creatinine Ratio (10-20) Glucose (70-99(Fasting)) mg/dl Calcium (8.6-10.3) mg/dl Total Bilirubin (0.2-1.0) mg/dl AST (13-39) U/L ALT (7-52) U/L Alkaline Phosphatase (34-104) U/L Total Protein (6.0-8.3) gm/dl Albumin (3.4-5.0) gm/dl Globulin (2.5-4.0) gm/dl Albumin/Globulin Ratio (0.9-2) SARS-CoV-2, RNA, NAAT NEGATIVE (NEGATIVE) Administered Medications Morphine Sulfate (Morphine Sulfate 2 Mg/Ml Carp) 2 mg IV Q15M PRN PRN Reason: Pain Stop: 06/01/23 13:56 Last Admin: 05/18/23 15:24 Dose: 2 mg Documented By: HEATHER Discontinued Medications Morphine Sulfate (Morphine Sulfate 4 Mg/Ml 1 Ml Carp\Vial) 4 mg IV NOW STA Stop: 05/18/23 13:58 Last Admin: 05/18/23 14:03 Dose: 4 mg Documented By: FARHEEN Ondansetron HCl (Ondansetron Inj 2 Mg/Ml 2 Ml Vial) 4 mg IV NOW STA Stop: 05/18/23 13:58 Last Admin: 05/18/23 14:03 Dose: 4 mg Documented By: FARHEEN Imaging Data Radiologist's Impression: Hip/Pelvis X-Ray 05/18/23 13:57 XR hip LT 2V w pelvis CLINICAL HISTORY: fall, pain COMPARISON STUDY: None. FINDINGS: There is a mildly displaced and comminuted intertrochanteric fracture of the proximal left femur. The fracture extends into the proximal shaft of the left femur. No dislocation. No additional fractures identified within the pelvis or right hip. A peritoneal catheter seen within the deep pelvis. IMPRESSION: Mildly displaced left femoral intertrochanteric fracture as described above. ACT 112: Negative or not required by law. Electronically signed by: Bryan Freeman M.D. 05/18/2023 3:45 PM Discharge Plan Visit Data Chief Complaint: Fall ED Provider: Chadd Ramirez Discharge Problem: Left hip pain, Closed fracture of left hip, Fall, Dialysis patient Patient Disposition: Admitted As Inpatient Condition: Fair Forms Stand Alone Forms: [facility] [employer] Prescriptions Prescriptions: No Action polyethylene glycol 3350 [Miralax] 17 gram Powder In Packet 17 g PO BID PRN (Reason: Constipation) gentamicin 0.1 % cream 1 applic TOPICAL DAILY Rx Instructions: apply to peritoneal cath ropinirole 0.25 mg tablet 0.25 mg PO HS oxybutynin chloride 5 mg tablet 2.5 mg PO DAILY sevelamer carbonate 800 mg tablet 800 mg PO TID bumetanide 2 mg tablet 4 mg PO BID omeprazole 40 mg capsule,delayed release(DR/EC) 40 mg PO QAM cholecalciferol (vitamin D3) [Vitamin D3] 125 mcg (5,000 unit) Tablet 125 mcg PO DAILY metoprolol succinate 50 mg tablet extended release 24 hr 50 mg PO DAILY amlodipine 10 mg tablet 10 mg PO DAILY gabapentin 300 mg capsule 300 mg PO QAM gabapentin 300 mg capsule 600 mg PO QPM mirtazapine 15 mg tablet 15 mg PO HS insulin asp prt-insulin aspart [Novolog Mix 70-30FlexPen U-100] 100 unit/mL (70-30) insulin pen 56 unit SUBCUT QPM insulin asp prt-insulin aspart [Novolog Mix 70-30FlexPen U-100] 100 unit/mL (70-30) insulin pen 66 unit SUBCUT QAM atorvastatin 40 mg tablet 40 mg PO DAILY isosorbide mononitrate 30 mg tablet extended release 24 hr 30 mg PO QAM tramadol 50 mg tablet 50 mg PO Q4 PRN (Reason: Pain) levothyroxine 50 mcg tablet 50 mcg PO DAILY docusate sodium 100 mg Capsule 100 mg PO BID Ensure Liquid 1 ea PO BID melatonin 10 mg Tablet 10 mg PO HS PRN (Reason: Sleep) clopidogrel 75 mg Tablet 75 mg PO QAM Qty: 30 0RF pantoprazole 40 mg Tablet,Delayed Release (Dr/Ec) 40 mg PO DAILY Qty: 30 0RF Referrals Referrals: Susan Guidry DO [Primary Care Provider] -
[2023-05-18 14:15] LABS: Basophils # (auto) 0.11 K/uL (0.00-0.20); Basophils % (auto) 1.1 %; Eosinophils # (auto) 0.29 K/uL (0.00-0.50); Eosinophils % (auto) 2.9 %; Hematocrit (blood only) 35.6 % (37.0-47.0); Hemoglobin 12.4 g/dl (12.0-16.0); Immature Granulocytes # (auto) 0.06 K/uL (0.01-0.20); Immature Granulocytes % (auto) 0.6 %; Lymphocytes # (auto) 2.27 K/uL (1.20-3.40); Lymphocytes % (auto) 22.5 %; Mean Corpuscular Hemoglobin 31.6 pg (25.0-34.0); Mean Corpuscular Hgb Conc 34.8 g/dL (32.0-36.0); Mean Corpuscular Volume 90.8 fL (80.0-100.0); Mean Platelet Volume 10.2 fL (9.4-12.4); Monocytes # (auto) 0.68 K/uL (0.11-0.59); Monocytes % (auto) 6.8 %; Neutrophils # (auto) 6.66 K/uL (1.40-6.50); Neutrophils % (auto) 66.1 %; Platelet Count 264 K/uL (130-400); RDW Coefficient of Variation 12.8 % (11.5-14.5); RDW Standard Deviation 41.5 fL (36.4-46.3); Red Blood Count 3.92 M/uL (4.20-5.40); White Blood Count 10.07 K/ul (4.8-10.8)
[2023-05-18 14:43] LABS: Partial Thromboplastin Ratio 0.9; Partial Thromboplastin Time 24.8 Seconds (21.0-31.0); Prothrombin Time 10.8 Seconds (9.0-12.0)
[2023-05-18] MEDS: MoRPHine SULFATE 2 MG/ML CARP IV PRN ×2 (15:24→16:55)
--- NOTE | 2023-05-18 15:46 | XRay Report ---
XR hip LT 2V w pelvis CLINICAL HISTORY: fall, pain COMPARISON STUDY: None. FINDINGS: There is a mildly displaced and comminuted intertrochanteric fracture of the proximal left femur. The fracture extends into the proximal shaft of the left femur. No dislocation. No additional fractures identified within the pelvis or right hip. A peritoneal catheter seen within the deep pelvi s. IMPRESSION: Mildly displaced left femoral intertrochanteric fracture as described above. ACT 112: Negative or not required by law. Electronically signed by: Bryan Freeman M.D. 05/18/2023 3:45 PM
--- NOTE | 2023-05-18 16:21 | Orthopedic Consultation ---
Date of Consultation May 18, 2023 Assessment & Plan (1) Intertrochanteric fracture of left femur: I discussed the diagnosis with the patient. Normally for this injury we would recommend surgery. However, she is a high risk surgical candidate secondary to her end-stage renal disease and uncontrolled diabetes. Furthermore her bone quality appears quite poor on her x-rays placing her at risk for intraoperative and postoperative fractures. There is a not unreasonable chance that should she sustain a complication she could be worse off than not having surgery. Her ambulatory capacity at present is quite limited. She says she falls on average once a month. Therefore, I do not feel that the potential benefits of surgery outweigh the risks. Recommend that the patient be weightbearing for transfers only with assistance on the left lower extremity. Probably will need to be on bedrest for a couple of days due to pain however. I will see her tomorrow on rounds to discuss this further. Laboratories and medical evaluation are pending. Supervising Physician Co-Signing Physician Notes I saw and examined the patient, reviewed her x-rays, and formulated the above plan constituting the substantial portion of the visit. Agree with the above note. History of Present Illness Reason for Consultation: Left Hip Intertrochanteric Fracture Attending Physician: Dr. Maurice Dennison History of Present Illness The patient is a 72-year-old female who states that she fell out of her wheelchair onto the hard cement today afternoon. The fall was witnessed by her daughter in law who reports that she did not lose consciousness after the fall. The patient could not bear weight on the Left lower extremity after the fall. No head injury, no neck pain, no back pain. No upper extremity pain. The patient states that she is on peritoneal dialysis, beginning November, owing to renal failure incurred by uncontrolled diabetes. The patient uses a walker to ambulate at home most of the time. She uses wheelchair when she is out of the house. Patient reports that her diabetes last A1c check was 9 or 10 a couple of months ago. Allergies Allergy/AdvReac Type Severity Reaction Status Date / Time meperidine Allergy Intermediate hypotension-passed Verified 10/12/22 23:08 out Home Medications Medication Instructions Recorded Confirmed Type bumetanide 2 mg tablet 4 mg PO BID 04/20/22 05/18/23 History cholecalciferol (vitamin D3) 125 125 mcg PO DAILY 04/20/22 05/18/23 History mcg (5,000 unit) tablet (Vitamin D3) omeprazole 40 mg capsule,delayed 40 mg PO QAM 04/20/22 05/18/23 History release amlodipine 10 mg tablet 10 mg PO DAILY 07/23/22 05/18/23 History atorvastatin 40 mg tablet 40 mg PO DAILY 07/23/22 05/18/23 History docusate sodium 100 mg capsule 100 mg PO BID 07/23/22 05/18/23 History food supplemt, lactose-reduced 1 ea PO BID 07/23/22 05/18/23 History (Ensure oral liquid) gabapentin 300 mg capsule 300 mg PO QAM 07/23/22 05/18/23 History gabapentin 300 mg capsule 600 mg PO QPM 07/23/22 05/18/23 History insulin aspar prot-insulin aspart 56 unit subcut QPM 07/23/22 05/18/23 History 100 unit/mL (70-30) subcutaneous pen (Novolog Mix 70-30FlexPen U-100) insulin aspar prot-insulin aspart 66 unit subcut QAM 07/23/22 05/18/23 History 100 unit/mL (70-30) subcutaneous pen (Novolog Mix 70-30FlexPen U-100) isosorbide mononitrate 30 mg 30 mg PO QAM 07/23/22 05/18/23 History tablet,extended release 24 hr levothyroxine 50 mcg tablet 50 mcg PO DAILY 07/23/22 05/18/23 History melatonin 10 mg tablet 10 mg PO HS PRN Sleep 07/23/22 05/18/23 History metoprolol succinate 50 mg 50 mg PO DAILY 07/23/22 05/18/23 History tablet,extended release 24 hr mirtazapine 15 mg tablet 15 mg PO HS 07/23/22 05/18/23 History tramadol 50 mg tablet 50 mg PO Q4 PRN Pain 07/23/22 05/18/23 History clopidogrel 75 mg tablet 75 mg PO QAM #30 tabs 07/25/22 05/18/23 Rx pantoprazole 40 mg tablet,delayed 40 mg PO DAILY #30 tabs 07/25/22 05/18/23 Rx release gentamicin 0.1 % topical cream 1 applic topical DAILY 10/12/22 05/18/23 History polyethylene glycol 3350 17 gram 17 g PO BID PRN Constipation 10/12/22 05/18/23 History oral powder packet (Miralax) oxybutynin chloride 5 mg tablet 2.5 mg PO DAILY 05/18/23 05/18/23 History ropinirole 0.25 mg tablet 0.25 mg PO HS 05/18/23 05/18/23 History sevelamer carbonate 800 mg tablet 800 mg PO TID 05/18/23 05/18/23 History Patient History Medical History Ambulatory dysfunction Diabetic neuropathy DM type 2 (diabetes mellitus, type 2) Dyspnea on exertion Encounter for pre-operative examination ESRD (end stage renal disease) on dialysis peritoneal dialysis patient Exertional chest pain GERD (gastroesophageal reflux disease) Hyperlipidemia Hypertension Lumbar radiculopathy Peritoneal dialysis catheter in place TIA (transient ischemic attack) Surgical History 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 Family History Other Family history non-contributory Social History Smoking Status: Never smoker Hx Alcohol Use: No Hx Substance Use: No Preferred Language: Lithuanian Communication Ability: Effective Patient Services Technician Required: No Beliefs That Will Affect Care: None marital status: / Current Living Situation: Family Current Living Situation Comment: Patient lives with son, Ashish and Daughter - in - Law Feels Safe at Home: Yes Assistive Devices: Walker and Wheelchair Review of Systems Review of Systems: All systems reviewed & are unremarkable except as noted in Subjective Physical Exam Physical Exam: The patient was lying on bed comfortably, not in any obvious distress. Well developed, well-built. Constitutional: Oriented to time, place and person. Eyes: EOM intact bilaterally and reactive pupils ENMT: external ear and nose normal, oropharynx normal Neck: normal visual inspection and trachea midline Respiratory: normal respiratory effort Cardiovascular: Extremities: normal capillary refill No pedal edema. Chest (Breasts): Chest: normal inspection of chest Gastrointestinal (Abdomen): normal bowel sounds, soft, nontender, no hep atosplenomegaly Musculoskeletal: Left Lower Extremity: Platinum than the Right side. Left hip flexed and externally rotated. Tenderness over Left hip, Left hip ROM limited due to pain Left Tibialis anterior, Gastrosoleus, Peroneals muscle power 4+/5 Left Dorsalis Pedis & Posterior Tibial Artery 2+ CONCESSIONIST Left toes < 3secs. Skin: no rashes, warm and dry Results & Data Vital Signs (Past 12 Hours) Vital Signs Temp Pulse Pulse Resp BP BP Pulse Ox 05/18/23 14:30 74 16 138/80 92 05/18/23 14:12 77 05/18/23 13:37 36.4 C L 79 20 156/82 H 96 05/18/23 13:37 36.4 C L 80 20 156/82 H 96 O2 Del Method 05/18/23 14:30 Room Air 05/18/23 14:12 05/18/23 13:37 Room Air 05/18/23 13:37 Room Air Laboratory Results 05/18/23 05/18/23 05/18/23 Range/Units 14:50 13:53 13:53 WBC (4.8-10.8) K/ul RBC (4.20-5.40) M/uL Hgb (12.0-16.0) g/dl Hct (37.0-47.0) % MCV (80.0-100.0) fL MCH (25.0-34.0) pg MCHC (32.0-36.0) g/dL RDW Std Deviation (36.4-46.3) fL RDW Coeff of [place] (11.5-14.5) % Plt Count (130-400) K/uL MPV (9.4-12.4) fL Immature Gran % (Auto) % Neut % (Auto) % Lymph % (Auto) % [place] % (Auto) % Eos % (Auto) % Baso % (Auto) % Neut # (Auto) (1.40-6.50) K/uL Lymph # (Auto) (1.20-3.40) K/uL [place] # (Auto) (0.11-0.59) K/uL Eos # (Auto) (0.00-0.50) K/uL Baso # (Auto) (0.00-0.20) K/uL Immature Gran # (Auto) (0.01-0.20) K/uL PT 10.8 (9.0-12.0) Seconds INR 1.0 (0.9-1.1) APTT 24.8 (21.0-31.0) Seconds PTT Ratio 0.9 Sodium 137 (136-145) mmol/L Potassium 4.1 (3.5-5.1) mmol/L Chloride 96 L (98-107) mmol/L Carbon Dioxide 26 (21-32) mmol/L Anion Gap 15 H (3-11) BUN Pending Creatinine Pending Est Cr Clr Drug Dosing Pending Est GFR ( Amer) Pending Est GFR (Non-Af Amer) Pending BUN/Creatinine Ratio Pending Glucose Pending Calcium 9.5 (8.6-10.3) mg/dl Total Bilirubin 0.3 (0.2-1.0) mg/dl AST Pending ALT Pending Alkaline Phosphatase Pending Total Protein Pending Albumin 4.0 (3.4-5.0) gm/dl Globulin Pending Albumin/Globulin Ratio Pending SARS-CoV-2, RNA, NAAT NEGATIVE (NEGATIVE) 05/18/23 Range/Units 13:53 WBC 10.07 (4.8-10.8) K/ul RBC 3.92 L (4.20-5.40) M/uL Hgb 12.4 (12.0-16.0) g/dl Hct 35.6 L (37.0-47.0) % MCV 90.8 (80.0-100.0) fL MCH 31.6 (25.0-34.0) pg MCHC 34.8 (32.0-36.0) g/dL RDW Std Deviation 41.5 (36.4-46.3) fL RDW Coeff of [place] 12.8 (11.5-14.5) % Plt Count 264 (130-400) K/uL MPV 10.2 (9.4-12.4) fL Immature Gran % (Auto) 0.6 % Neut % (Auto) 66.1 % Lymph % (Auto) 22.5 % [place] % (Auto) 6.8 % Eos % (Auto) 2.9 % Baso % (Auto) 1.1 % Neut # (Auto) 6.66 H (1.40-6.50) K/uL Lymph # (Auto) 2.27 (1.20-3.40) K/uL [place] # (Auto) 0.68 H (0.11-0.59) K/uL Eos # (Auto) 0.29 (0.00-0.50) K/uL Baso # (Auto) 0.11 (0.00-0.20) K/uL Immature Gran # (Auto) 0.06 (0.01-0.20) K/uL PT (9.0-12.0) Seconds INR (0.9-1.1) APTT (21.0-31.0) Seconds PTT Ratio Sodium (136-145) mmol/L Potassium (3.5-5.1) mmol/L Chloride (98-107) mmol/L Carbon Dioxide (21-32) mmol/L Anion Gap (3-11) BUN Creatinine Est Cr Clr Drug Dosing Est GFR ( Amer) Est GFR (Non-Af Amer) BUN/Creatinine Ratio Glucose Calcium (8.6-10.3) mg/dl Total Bilirubin (0.2-1.0) mg/dl AST ALT Alkaline Phosphatase Total Protein Albumin (3.4-5.0) gm/dl Globulin Albumin/Globulin Ratio SARS-CoV-2, RNA, NAAT (NEGATIVE) Diagnostic Findings Laboratory Results WBC 10.07 K/ul (4.8-10.8) 05/18/23 13:53 RBC 3.92 M/uL (4.20-5.40) L 05/18/23 13:53 Hgb 12.4 g/dl (12.0-16.0) 05/18/23 13:53 Hct 35.6 % (37.0-47.0) L 05/18/23 13:53 MCV 90.8 fL (80.0-100.0) 05/18/23 13:53 MCH 31.6 pg (25.0-34.0) 05/18/23 13:53 MCHC 34.8 g/dL (32.0-36.0) 05/18/23 13:53 RDW Std Deviation 41.5 fL (36.4-46.3) 05/18/23 13:53 RDW Coeff of [place] 12.8 % (11.5-14.5) 05/18/23 13:53 Plt Count 264 K/uL (130-400) 05/18/23 13:53 MPV 10.2 fL (9.4-12.4) 05/18/23 13:53 Immature Gran % (Auto) 0.6 % 05/18/23 13:53 Neut % (Auto) 66.1 % 05/18/23 13:53 Lymph % (Auto) 22.5 % 05/18/23 13:53 [place] % (Auto) 6.8 % 05/18/23 13:53 Eos % (Auto) 2.9 % 05/18/23 13:53 Baso % (Auto) 1.1 % 05/18/23 13:53 Neut # (Auto) 6.66 K/uL (1.40-6.50) H 05/18/23 13:53 Lymph # (Auto) 2.27 K/uL (1.20-3.40) 05/18/23 13:53 [place] # (Auto) 0.68 K/uL (0.11-0.59) H 05/18/23 13:53 Eos # (Auto) 0.29 K/uL (0.00-0.50) 05/18/23 13:53 Baso # (Auto) 0.11 K/uL (0.00-0.20) 05/18/23 13:53 Immature Gran # (Auto) 0.06 K/uL (0.01-0.20) 05/18/23 13:53 PT 10.8 Seconds (9.0-12.0) 05/18/23 13:53 INR 1.0 (0.9-1.1) 05/18/23 13:53 APTT 24.8 Seconds (21.0-31.0) 05/18/23 13:53 PTT Ratio 0.9 05/18/23 13:53 SARS-CoV-2, RNA, NAAT NEGATIVE (NEGATIVE) 05/18/23 14:50 Impressions Hip/Pelvis X-Ray 05/18/23 13:57 XR hip LT 2V w pelvis CLINICAL HISTORY: fall, pain COMPARISON STUDY: None. FINDINGS: There is a mildly displaced and comminuted intertrochanteric fracture of the proximal left femur. The fracture extends into the proximal shaft of the left femur. No dislocation. No additional fractures identified within the pelvis or right hip. A peritoneal catheter seen within the deep pelvis. IMPRESSION: Mildly displaced left femoral intertrochanteric fracture as described above. ACT 112: Negative or not required by law. Electronically signed by: Bryan Freeman M.D. 05/18/2023 3:45 PM
[2023-05-18 16:27] LABS: Bilirubin,Total 0.3 mg/dl (0.2-1.0); Calcium 9.5 mg/dl (8.6-10.3); Potassium 4.1 mmol/L (3.5-5.1)
--- NOTE | 2023-05-18 16:27 | History & Physical Report ---
Date of Service May 18, 2023 Assessment & Plan (1) Fall: (2) Intertrochanteric fracture of left femur: Plan: Patient is 72-year-old female with PMH ESRD on PD, insulin-dependent diabetes, HTN, HLD, stroke, hypothyroidism, GERD, depression, RLS presented to ER with complaint of fall out of wheelchair and left hip pain today. Minimally ambulatory at baseline, mostly uses wheelchair Hip x-ray: Mildly displaced left femoral intertrochanteric fracture per ra diology read. + Comminuted left intertrochanteric femur fracture per my interpretation In ER given morphine IV Scheduled IV Tylenol, Dilaudid as needed pain Bedrest Obtain CXR and EKG in a.m. for preop evaluation Ortho consult. Dr. Dennison evaluated patient and feels patient high surgical risk and with current minimal baseline ambulation likely will not be surgical candidate. Will allow diet tonight and ortho to reevaluate patient tomorrow. Anesthesia consult CBC, BMP in am (3) End stage renal disease: Plan: ESRD on PD Last PD yesterday evening Continue renal meds, [facility] consulted for assistance with dialysis (4) DM type 2 (diabetes mellitus, type 2): Plan: Insulin-dependent diabetes A1c: 10 on 12/25/2022 Hold home NovoLog 70/30 Basal bolus insulin per protocol Glycemic pharmacy consult A1c in a.m. (5) History of stroke: Plan: Continue aspirin, Plavix, atorvastatin. Will continue aspirin and Plavix for now and will plan to hold if reconsideration for surgical procedure (6) Hypertension: Plan: Continue amlodipine, metoprolol succinate, isosorbide (7) Hyperlipidemia: Plan: Continue atorvastatin (8) Hypothyroid: Plan: Continue levothyroxine (9) GERD (gastroesophageal reflux disease): Plan: Continue PPI (10) Depression: Plan: Continue home meds DVT Prophylaxis SCDs DNR/DNI as per discussion with pt Follows with Dr Guidry for routine care Pt was seen and care coordinated with Dr Glez. See addendum History of Present Illness Chief Complaint: Fall, hip pain Primary Care Provider: Susan Guidry, Patient is 72-year-old female with PMH ESRD on PD, insulin-dependent diabetes, HTN, HLD, stroke, hypothyroidism, GERD, depression, RLS presented to ER with complaint of fall and left hip pain today. History obtained from patient and inpatient and outpatient chart review. Patient states mostly uses wheelchair at baseline. She states today she was being pushed in wheelchair and chair slipped off pavement causing pt to slide out of wheelchair landing onto her buttocks. Patient states had instant pain to left hip and left upper leg. She states that she attempted to get up with assistance however was unable to bear weight to left leg and EMS was called. Patient denies numbness or tingling of left leg or foot. Denies hitting head or any other known injury. Does PD nightly at home. States last PD was last night. Makes very little urine. Denies fever/chills, diaphoresis, N/V/D/C, MANNING, dizziness, syncope, neck pain, CP, SOB, palpitations, cough, rhinorrhea, abdominal pain, paresthesias, weakness, extremity edema, rashes, urinary symptoms. Allergies Allergy/AdvReac Type Severity Reaction Status Date / Time meperidine Allergy Intermediate hypotension-passed Verified 10/12/22 23:08 out Home Medications Medication Instructions Recorded Confirmed Type bumetanide 2 mg tablet 4 mg PO BID 04/20/22 05/18/23 History cholecalciferol (vitamin D3) 125 125 mcg PO DAILY 04/20/22 05/18/23 History mcg (5,000 unit) tablet (Vitamin D3) amlodipine 10 mg tablet 10 mg PO DAILY 07/23/22 05/18/23 History atorvastatin 40 mg tablet 40 mg PO DAILY 07/23/22 05/18/23 History docusate sodium 100 mg capsule 100 mg PO BID 07/23/22 05/18/23 History food supplemt, lactose-reduced 1 ea PO BID 07/23/22 05/18/23 History (Ensure oral liquid) gabapentin 300 mg capsule 300 mg PO QAM 07/23/22 05/18/23 History gabapentin 300 mg capsule 600 mg PO QPM 07/23/22 05/18/23 History insulin aspar prot-insulin aspart 56 unit subcut QPM 07/23/22 05/18/23 History 100 unit/mL (70-30) subcutaneous pen (Novolog Mix 70-30FlexPen U-100) insulin aspar prot-insulin aspart 66 unit subcut QAM 07/23/22 05/18/23 History 100 unit/mL (70-30) subcutaneous pen (Novolog Mix 70-30FlexPen U-100) isosorbide mononitrate 30 mg 30 mg PO QAM 07/23/22 05/18/23 History tablet,extended release 24 hr levothyroxine 50 mcg tablet 50 mcg PO DAILY 07/23/22 05/18/23 History melatonin 10 mg tablet 10 mg PO HS PRN Sleep 07/23/22 05/18/23 History metoprolol succinate 50 mg 50 mg PO DAILY 07/23/22 05/18/23 History tablet,extended release 24 hr mirtazapine 15 mg tablet 15 mg PO HS 07/23/22 05/18/23 History tramadol 50 mg tablet 50 mg PO Q4 PRN Pain 07/23/22 05/18/23 History clopidogrel 75 mg tablet 75 mg PO QAM #30 tabs 07/25/22 05/18/23 Rx pantoprazole 40 mg tablet,delayed 40 mg PO DAILY #30 tabs 07/25/22 05/18/23 Rx release gentamicin 0.1 % topical cream 1 applic topical DAILY 10/12/22 05/18/23 History polyethylene glycol 3350 17 gram 17 g PO BID PRN Constipation 10/12/22 05/18/23 History oral powder packet (Miralax) aspirin 81 mg tablet,delayed 81 mg PO DAILY 05/18/23 05/18/23 History release duloxetine 20 mg capsule,delayed 20 mg PO DAILY 05/18/23 05/18/23 History release oxybutynin chloride 5 mg tablet 2.5 mg PO DAILY 05/18/23 05/18/23 History ropinirole 0.25 mg tablet 0.25 mg PO HS 05/18/23 05/18/23 History sevelamer carbonate 800 mg tablet 800 mg PO TID 05/18/23 05/18/23 History Past Med/Surg History Medical History Ambulatory dysfunction Diabetic neuropathy DM type 2 (diabetes mellitus, type 2) Dyspnea on exertion Encounter for pre-operative examination ESRD (end stage renal disease) on dialysis peritoneal dialysis patient Exertional chest pain GERD (gastroesophageal reflux disease) Hyperlipidemia Hypertension Lumbar radiculopathy Peritoneal dialysis catheter in place TIA (transient ischemic attack) Surgical History 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 Family History (Updated 05/18/23 @ 19:57 by Radha Galeano PA-C) Other Cancer Social History Smoking Status: Never smoker Hx Alcohol Use: No Hx Substance Use: No Preferred Language: Yi Communication Ability: Effective Braker Passenger Train Required: No Beliefs That Will Affect Care: None marital status: / Current Living Situation: Family Current Living Situation Comment: lives with son, has to go up 14 steps to get into house, then 1 floor Other Information That Helps Us Care for You: No Feels Safe at Home: Yes Safety Concerns: Feels Safe At This Time Assistive Devices: Walker and Wheelchair Review of Systems Review of Systems: All systems reviewed & are unremarkable except as noted in HPI & below Physical Exam Physical Exam: PE per Dr Glez. See addendum. Results & Data Results & Data Vital Signs (Past 12 Hours) Vital Signs Temp Pulse Pulse Resp BP BP Pulse Ox 05/18/23 14:30 74 16 138/80 92 05/18/23 14:12 77 05/18/23 13:37 36.4 C L 79 20 156/82 H 96 05/18/23 13:37 36.4 C L 80 20 156/82 H 96 O2 Del Method 05/18/23 14:30 Room Air 05/18/23 14:12 05/18/23 13:37 Room Air 05/18/23 13:37 Room Air Laboratory Results Short CBC 05/18/23 Range/Units 13:53 WBC 10.07 (4.8-10.8) K/ul Hgb 12.4 (12.0-16.0) g/dl Hct 35.6 L (37.0-47.0) % Plt Count 264 (130-400) K/uL BMP 05/18/23 13:53 Sodium 137 Potassium 4.1 Chloride 96 L Carbon Dioxide 26 BUN 63 H Creatinine 5.65 H* Glucose 141 H Calcium 9.5 Liver Function 05/18/23 Range/Units 13:53 Total Bilirubin 0.3 (0.2-1.0) mg/dl AST 18 (13-39) U/L ALT 14 (7-52) U/L Alkaline Phosphatase 75 (34-104) U/L Albumin 4.0 (3.4-5.0) gm/dl Diagnostic Findings Hip/Pelvis X-Ray 05/18/23 13:57 XR hip LT 2V w pelvis CLINICAL HISTORY: fall, pain COMPARISON STUDY: None. FINDINGS: There is a mildly displaced and comminuted intertrochanteric fracture of the proximal left femur. The fracture extends into the proximal shaft of the left femur. No dislocation. No additional fractures identified within the pelvis or right hip. A peritoneal catheter seen within the deep pelvis. IMPRESSION: Mildly displaced left femoral intertrochanteric fracture as described above. ACT 112: Negative or not required by law. Electronically signed by: Bryan Freeman M.D. 05/18/2023 3:45 PM ECG Additional Comments: Sinus rhythm, rate 79, T wave flattening septal, anterior, lateral leads per my interpretation. EKG from 10/12/2022 reviewed and was without significant T wave abnormality per my interpretation Supervising Physician Co-Signing Physician Notes Patient is a 72-year-old female with past medical history of type 2 diabetes mellitus, ESRD on peritoneal dialysis, presented to the ED after a fall from the wheelchair. Hip x-ray showed mildly displaced left femoral intertrochanteric fracture. Orthopedic recommendation reviewed; she is high risk surgical candidate secondary to ESRD and uncontrolled diabetes. Recommend weightbearing as tolerated and conservative management. PT OT. Pain control with IV Tylenol and Dilaudid. On physical examination; Constitutional: Alert orient x3; not in distress. Hard of hearing. Respiratory: Bilateral basal breath sound Cardiovascular: RRR, no murmur, no edema Vessels: no JVD or carotid bruit Chest: normal inspection of chest Abdomen: Soft, nontender. Peritoneal dialysis catheter in place. Musculoskeletal: no cyanosis or clubbing, left leg externally rotated, ROM severely limited due to pain. No overlying bruise on the hip. Skin: no rashes, warm and dry normal turgor Neurologic: PERRL, EOMI, accommodation nl, no face palsy, no dysarthria CN's II- XI intact bilaterally and moves all extremities Psychiatric: A+Ox3, euthymic affect
--- NOTE | 2023-05-18 16:35 | Nephrology Consultation ---
Date of Consultation May 18, 2023 Assessment & Plan (1) ESRD (end stage renal disease) on dialysis: Her OP rx is 4 x 2L exchanges over 8 hours. will run 3 exchanges tonight and plan to resume routine PD tomorrow evening Her volume status and BP are acceptable; potassium, calcium other chemistries at goal. not currently anemic. >will have daily exit site care w/ dialysis nurse >plan for her to go to OR w/ dry abdomen >if > 3 days abtx planned, will need antifungal prophylaxis >>>needs special consideration of bowel regimen maribell w/ pain meds perioperatively to ensure good daily BM and lower risk of peritonitis >>>needs to go to OR w/ dry abdomen >> will therefore need time in AM for geomagnetician to disconnect her from the cycler and ensure she's properly drained before heading to preop daily bmp while in house SPECIAL CONSIDERATIONS BEFORE SURGERY >will need measures taken to protect PD catheter and tunnel/exit site while in the OR and perioperatively >pls notify nephro purification operator immediately if any breach/entry into peritoneal cavity during surgery so that post operative dialysis can be managed accordingly Care coordinated w/ Dr Glez (2) Intertrochanteric fracture of left femur: Care for protecting catheter and exit site/tunnel as well as timing to go to preop as above History of Present Illness Reason for Consultation: ESRD on PD w/ femur frx Requesting Physician: Dr Glez Attending Physician: Dr Glez History of Present Illness 72 y/o f whom I'm asked to see for dialysis needs was admitted this evening w/ L femoral fracture after a fall and is for surgical repair tomorrow am. PMH ESRD on PD, HTN, DM, lumbar radiculopathy/RLE weakness, hypothyroid, class 2 obesity, HL, per her report mild cognitive impairment/memory challenges, chronic ambulatory dysfunction d/t back pain and leg weakness. Admitted here for TIA in July 2022; admitted here for cx negative PD peritonitis 09/2022. 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 Has had C diff in the past. also had one episode of peritonitis spring 2021 shortly after starting PD. She dialyzes under my care at [facility]. She still has significant residual renal function so does 4 x 2L exchanges over 8 hours on the cycler. She has a very supportive family who help with dialysis. She was seen at PD clinic today with an uneventful visit. She unfortunately fell in the parking lot as she was leaving. c/o mild N and L groin pain. No v/abd pain/diarrhea, no palpitations, no edema.no decreased po intake. no f/c; no change in chronic voiding habits or new/worrisome voiding concerns. no dyspnea, no edema. no chest pain or palpitations. Allergies Allergy/AdvReac Type Severity Reaction Status Date / Time meperidine Allergy Intermediate hypotension-passed Verified 10/12/22 23:08 out Home Medications Medication Instructions Recorded Confirmed Type bumetanide 2 mg tablet 4 mg PO BID 04/20/22 05/18/23 History cholecalciferol (vitamin D3) 125 125 mcg PO DAILY 04/20/22 05/18/23 History mcg (5,000 unit) tablet (Vitamin D3) omeprazole 40 mg capsule,delayed 40 mg PO QAM 04/20/22 05/18/23 History release amlodipine 10 mg tablet 10 mg PO DAILY 07/23/22 05/18/23 History atorvastatin 40 mg tablet 40 mg PO DAILY 07/23/22 05/18/23 History docusate sodium 100 mg capsule 100 mg PO BID 07/23/22 05/18/23 History food supplemt, lactose-reduced 1 ea PO BID 07/23/22 05/18/23 History (Ensure oral liquid) gabapentin 300 mg capsule 300 mg PO QAM 07/23/22 05/18/23 History gabapentin 300 mg capsule 600 mg PO QPM 07/23/22 05/18/23 History insulin aspar prot-insulin aspart 56 unit subcut QPM 07/23/22 05/18/23 History 100 unit/mL (70-30) subcutaneous pen (Novolog Mix 70-30FlexPen U-100) insulin aspar prot-insulin aspart 66 unit subcut QAM 07/23/22 05/18/23 History 100 unit/mL (70-30) subcutaneous pen (Novolog Mix 70-30FlexPen U-100) isosorbide mononitrate 30 mg 30 mg PO QAM 07/23/22 05/18/23 History tablet,extended release 24 hr levothyroxine 50 mcg tablet 50 mcg PO DAILY 07/23/22 05/18/23 History melatonin 10 mg tablet 10 mg PO HS PRN Sleep 07/23/22 05/18/23 History metoprolol succinate 50 mg 50 mg PO DAILY 07/23/22 05/18/23 History tablet,extended release 24 hr mirtazapine 15 mg tablet 15 mg PO HS 07/23/22 05/18/23 History tramadol 50 mg tablet 50 mg PO Q4 PRN Pain 07/23/22 05/18/23 History clopidogrel 75 mg tablet 75 mg PO QAM #30 tabs 07/25/22 05/18/23 Rx pantoprazole 40 mg tablet,delayed 40 mg PO DAILY #30 tabs 07/25/22 05/18/23 Rx release gentamicin 0.1 % topical cream 1 applic topical DAILY 10/12/22 05/18/23 History polyethylene glycol 3350 17 gram 17 g PO BID PRN Constipation 10/12/22 05/18/23 History oral powder packet (Miralax) oxybutynin chloride 5 mg tablet 2.5 mg PO DAILY 05/18/23 05/18/23 History ropinirole 0.25 mg tablet 0.25 mg PO HS 05/18/23 05/18/23 History sevelamer carbonate 800 mg tablet 800 mg PO TID 05/18/23 05/18/23 History Patient History Medical History Ambulatory dysfunction Diabetic neuropathy DM type 2 (diabetes mellitus, type 2) Dyspnea on exertion Encounter for pre-operative examination ESRD (end stage renal disease) on dialysis peritoneal dialysis patient Exertional chest pain GERD (gastroesophageal reflux disease) Hyperlipidemia Hypertension Lumbar radiculopathy Peritoneal dialysis catheter in place TIA (transient ischemic attack) Surgical History 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 Family History Other Family history non-contributory Social History Smoking Status: Never smoker Hx Alcohol Use: No Hx Substance Use: No Preferred Language: [place] Communication Ability: Effective Environmental Services Manager Required: No Beliefs That Will Affect Care: None marital status: / Current Living Situation: Family Current Living Situation Comment: lives with son, has to go up 14 steps to get into house, then 1 floor Other Information That Helps Us Care for You: No Feels Safe at Home: Yes Safety Concerns: Feels Safe At This Time Assistive Devices: Walker and Wheelchair Review of Systems Review of Systems: All systems reviewed & are unremarkable except as noted in HPI & below Physical Exam Constitutional: well developed and well nourished Eyes: EOM intact bilaterally ENMT: Ears: no external ear abnormality Nose: no external nose abnormality Mouth: + dry oral mucous membranes Neck: no nuchal rigidity Respiratory: normal respiratory effort Auscultation: + diminished lung sounds Cardiovascular: RRR, no murmur, no edema Gastrointestinal (Abdomen): Inspection/Auscultation: normal bowel sounds Percussion/Palpation: abdomen soft; abdomen nontender PD cath LLQ Musculoskeletal: Extremities: strength 5/5 throughout Skin: no rashes, warm and dry Neurologic: babcock, fluent speech, no tremor Results & Data Vital Signs (Past 12 Hours) Vital Signs Temp Pulse Pulse Resp BP BP Pulse Ox 05/18/23 14:30 74 16 138/80 92 05/18/23 14:12 77 05/18/23 13:37 36.4 C L 79 20 156/82 H 96 05/18/23 13:37 36.4 C L 80 20 156/82 H 96 O2 Del Method 05/18/23 14:30 Room Air 05/18/23 14:12 05/18/23 13:37 Room Air 05/18/23 13:37 Room Air Laboratory Results 05/18/23 13:53 05/18/23 13:53 Diagnostic Findings hip XR report reviewed
[2023-05-18 16:43] LABS: Albumin Globulin Ratio 1.3 (0.9-2); BUN Creatinine Ratio 11.2 (10-20); Creatinine Clr Calc Pharmacy 10.7 ml/min; Est GFR (African American) 8.1 ml/min; Globulin 3.2 gm/dl (2.5-4.0); Total Protein 7.2 gm/dl (6.0-8.3)
--- NOTE | 2023-05-18 17:21 | Anesthesiology Consultation ---
Date of Service May 18, 2023 Assessment & Plan (1) Encounter for pre-operative examination: Chart Review Chart Review: Acceptable Risk for Surgery and Patient NOT seen in Pre Admission Testing Consults Requested none History Surgery Operation Date: 05/19/23 07:30 Proposed Procedures p Left Trochanteric Femur Fracture - Maurice Dennison MD Height/Weight Height: 5 ft 3 in Weight: 107.7 kg Allergies Allergy/AdvReac Type Severity Reaction Status Date / Time meperidine Allergy Intermediate hypotension-passed Verified 10/12/22 23:08 out Medications Home Medications Medication Instructions Recorded Confirmed Last Taken bumetanide 2 mg tablet 4 mg PO BID 04/20/22 05/18/23 05/18/23 cholecalciferol (vitamin D3) 125 125 mcg PO DAILY 04/20/22 05/18/23 05/17/23 mcg (5,000 unit) tablet (Vitamin D3) omeprazole 40 mg capsule,delayed 40 mg PO QAM 04/20/22 05/18/23 05/18/23 release amlodipine 10 mg tablet 10 mg PO DAILY 07/23/22 05/18/23 05/18/23 atorvastatin 40 mg tablet 40 mg PO DAILY 07/23/22 05/18/23 05/18/23 docusate sodium 100 mg capsule 100 mg PO BID 07/23/22 05/18/23 05/18/23 food supplemt, lactose-reduced 1 ea PO BID 07/23/22 05/18/23 10/05/22 (Ensure oral liquid) gabapentin 300 mg capsule 300 mg PO QAM 07/23/22 05/18/23 05/18/23 gabapentin 300 mg capsule 600 mg PO QPM 07/23/22 05/18/23 05/17/23 insulin aspar prot-insulin aspart 56 unit subcut QPM 07/23/22 05/18/23 05/17/23 100 unit/mL (70-30) subcutaneous pen (Novolog Mix 70-30FlexPen U-100) insulin aspar prot-insulin aspart 66 unit subcut QAM 07/23/22 05/18/23 05/18/23 100 unit/mL (70-30) subcutaneous pen (Novolog Mix 70-30FlexPen U-100) isosorbide mononitrate 30 mg 30 mg PO QAM 07/23/22 05/18/23 05/18/23 tablet,extended release 24 hr levothyroxine 50 mcg tablet 50 mcg PO DAILY 07/23/22 05/18/23 05/18/23 melatonin 10 mg tablet 10 mg PO HS PRN Sleep 07/23/22 05/18/23 10/05/22 metoprolol succinate 50 mg 50 mg PO DAILY 07/23/22 05/18/23 05/18/23 tablet,extended release 24 hr mirtazapine 15 mg tablet 15 mg PO HS 07/23/22 05/18/23 05/17/23 tramadol 50 mg tablet 50 mg PO Q4 PRN Pain 07/23/22 05/18/23 10/05/22 clopidogrel 75 mg tablet 75 mg PO QAM #30 tabs 07/25/22 05/18/23 05/18/23 pantoprazole 40 mg tablet,delayed 40 mg PO DAILY #30 tabs 07/25/22 05/18/23 05/18/23 release gentamicin 0.1 % topical cream 1 applic topical DAILY 10/12/22 05/18/23 05/18/23 polyethylene glycol 3350 17 gram 17 g PO BID PRN Constipation 10/12/22 05/18/23 2 Days Ago oral powder packet (Miralax) ~05/16/23 oxybutynin chloride 5 mg tablet 2.5 mg PO DAILY 05/18/23 05/18/23 05/18/23 ropinirole 0.25 mg tablet 0.25 mg PO HS 05/18/23 05/18/23 05/17/23 sevelamer carbonate 800 mg tablet 800 mg PO TID 05/18/23 05/18/23 05/18/23 Active Medications Generic Name Dose Route Start Last Admin Trade Name Freq PRN Reason Stop Dose Admin Morphine Sulfate 2 mg 05/18/23 13:57 05/18/23 16:55 Morphine Sulfate 2 Mg/Ml Carp IV 06/01/23 13:56 2 mg Q15M PRN Administration Pain Past Medical History Medical History (Updated 05/18/23 @ 17:21 by Francisco Underwood MD) Ambulatory dysfunction Diabetic neuropathy DM type 2 (diabetes mellitus, type 2) Dyspnea on exertion Encounter for pre-operative examination ESRD (end stage renal disease) on dialysis peritoneal dialysis patient Exertional chest pain GERD (gastroesophageal reflux disease) Hyperlipidemia Hypertension Lumbar radiculopathy Peritoneal dialysis catheter in place TIA (transient ischemic attack) PMH ESRD on PD, HTN, DM, lumbar radiculopathy/RLE weakness, hypothyroid, class 2 obesity, HL, per her report mild cognitive impairment/memory challenges, chronic ambulatory dysfunction d/t back pain and leg weakness. Admitted here for TIA in July 2022; admitted here for cx negative PD peritonitis 09/2022. 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 Has had C diff in the past. also had one episode of peritonitis spring 2021 shortly after sta rting PD. She dialyzes under my care at [facility]. She still has significant residual renal function so does 4 x 2L exchanges over 8 hours on the cycler. Past Family History Family History Other Family history non-contributory Past Surgical History Surgical History 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 Social History Smoking Status: Never smoker Hx Alcohol Use: No Alcohol type: wine alcohol intake frequency: holidays/special occasions only Hx Substance Use: No Physical Exam Vital Signs Last Vital Signs Temp 36.4 C L 05/18/23 13:37 Pulse 93 H 05/18/23 16:58 Resp 15 05/18/23 16:58 BP 127/67 05/18/23 16:58 Pulse Ox 94 05/18/23 16:58 O2 Del Method Room Air 05/18/23 16:58 Testing Laboratory Results 05/18/23 13:53 05/18/23 13:53 PT 10.8 Seconds (9.0-12.0) 05/18/23 13:53 INR 1.0 (0.9-1.1) 05/18/23 13:53 APTT 24.8 Seconds (21.0-31.0) 05/18/23 13:53 Electrocardiogram Date: 05/18/23 HR 79. Normal sinus rhythm ST & T wave abnormality, consider lateral ischemia Abnormal ECG When compared with ECG of 12-OCT-2022 21:33, No significant change was found Echocardiogram echo 04/21/2022: LV is normal in size. Mild LVH EF 65-70% No segmental LV wall motion abnormalities LV wall motion is normal. Grade 1 DD. No significant valvular pathology.
[2023-05-18] MEDS ORDERED: MAGNESIUM HYDROXIDE SUSP 30 ML UDC PO PRN (17:48)
[2023-05-18] MEDS ORDERED: ONDANSETRON INJ 2 MG/ML 2 ML VIAL IV PRN (17:48)
[2023-05-18] MEDS ORDERED: bisacodyL 10 MG SUPP PR PRN (17:48)
[2023-05-18] MEDS ORDERED: NALOXONE HCL 0.4 MG/1 ML VIAL/CARP IV PRN (17:48)
[2023-05-18] MEDS: HYDROmorphone INJ 0.5 MG/0.5 ML SYR IV PRN ×2 (18:04→23:28)
[2023-05-18] MEDS: ACETAMINOPHEN 1,000 MG/100 ML VIAL IV SCH (18:11)
[2023-05-18] MEDS ORDERED: CARBOHYDRATES FOR HYPOGLYCEMIA PO PRN (18:17)
[2023-05-18] MEDS ORDERED: GLUCOSE 10 TAB/TUBE PO PRN (18:17)
[2023-05-18] MEDS ORDERED: DEXTROSE 50% 50 ML SYRINGE IV PRN (18:17)
[2023-05-18] MEDS ORDERED: GLUCAGON FOR INJ 1 MG VIAL SQ PRN (18:17)
[2023-05-18] MEDS ORDERED: PHARMACY GLYCEMIC MGMT CONSULT PRN (18:17)
[2023-05-18] MEDS ORDERED: GLUCOSE 40% GEL 15 GM TUBE PO PRN (18:17)
[2023-05-18] MEDS ORDERED: MELATONIN 3 MG TAB PO PRN (18:28)
[2023-05-18] MEDS: DOCUSATE SODIUM 100 MG CAP PO SCH (20:54)
[2023-05-18] MEDS: rOPINIRole HCL 0.25 MG TABLET PO SCH (20:54)
[2023-05-18] MEDS: MIRTAZAPINE TAB 15 MG TAB PO SCH (20:54)
[2023-05-18] MEDS: GABAPENTIN 600 MG TAB PO SCH (20:55)
[2023-05-18] MEDS ORDERED: NON-FORMULARY MEDICATION (Food Supplemt, Lactose-Reduced [Ensure] Liquid) PO SCH (21:00)
[2023-05-18] MEDS: INSULIN ASPART PER UNIT CHARGE SC SCH (21:09)
[2023-05-18] MEDS: LANTUS PER UNIT CHARGE SQ SCH (21:09)
[2023-05-19] MEDS: ACETAMINOPHEN 1,000 MG/100 ML VIAL IV SCH ×3 (02:52→18:10)
[2023-05-19] MEDS ORDERED: Nursing to Pharmacy Communication SCH (06:00)
[2023-05-19] MEDS ORDERED: ceFAZolin 2000MG 2,000 MG/15 ML SYR IV SCH (06:00)
[2023-05-19] MEDS: LEVOTHYROXINE SODIUM 50 MCG TABLET PO SCH (06:04)
--- NOTE | 2023-05-19 06:55 | XRay Report ---
XR chest 1V portable CLINICAL HISTORY: pre-op COMPARISON STUDY: Chest radiograph October 12, 2022. FINDINGS: Patient is rotated. This likely accounts for mediastinal widening. Cardiac size is normal. There is no evidence for pulmonary edema. No consolidation to suggest pneumonia. No pneumothorax or p leural effusion. IMPRESSION: No acute cardiopulmonary findings. Rotated study. ACT 112: Negative or not required by law. Electronically signed by: Pacheco Culver M.D. 05/19/2023 6:53 AM
[2023-05-19 06:58] LABS: Hematocrit (blood only) 30.4 % (37.0-47.0); Hemoglobin 10.3 g/dl (12.0-16.0); Mean Corpuscular Hemoglobin 31.5 pg (25.0-34.0); Mean Corpuscular Hgb Conc 33.9 g/dL (32.0-36.0); Mean Platelet Volume 10.2 fL (9.4-12.4); Platelet Count 235 K/uL (130-400); RDW Coefficient of Variation 12.8 % (11.5-14.5); RDW Standard Deviation 43.8 fL (36.4-46.3); Red Blood Count 3.27 M/uL (4.20-5.40); White Blood Count 9.64 K/ul (4.8-10.8)
[2023-05-19 07:25] LABS: BUN Creatinine Ratio 10.1 (10-20); Calcium 9.1 mg/dl (8.6-10.3); Creatinine Clr Calc Pharmacy 9.6 ml/min; Est GFR (African American) 7.5 ml/min; Est GFR (Non-African American) 6.5 ml/min; Magnesium 1.7 mg/dl (1.7-2.4); Phosphorus 6.7 mg/dl (2.5-4.9)
[2023-05-19 07:53] LABS: Estimated Average Glucose 194 mg/dl; Hemoglobin A1C 8.4 % (4.5-5.6)
[2023-05-19] MEDS: HYDROmorphone INJ 0.5 MG/0.5 ML SYR IV PRN ×3 (08:50→17:02)
[2023-05-19] MEDS: LANTUS PER UNIT CHARGE SQ SCH ×2 (09:05→21:19)
[2023-05-19] MEDS: INSULIN ASPART PER UNIT CHARGE SC SCH ×4 (09:05→21:19)
[2023-05-19] MEDS: amLODIPine BESYLATE 5 MG TAB PO SCH (09:06)
[2023-05-19] MEDS: SEVELAMER HCL 800 MG TABLET PO SCH ×3 (09:06→18:05)
[2023-05-19] MEDS: ASPIRIN 81 MG ECTAB PO SCH (09:06)
[2023-05-19] MEDS: CHOLECALCIFEROL 5,000 UNITS 125 MCG TAB PO SCH (09:07)
[2023-05-19] MEDS: ATORVASTATIN 40 MG TAB PO SCH (09:07)
[2023-05-19] MEDS: CLOPIDOGREL BISULFATE 75 MG TAB PO SCH (09:07)
[2023-05-19] MEDS: DOCUSATE SODIUM 100 MG CAP PO SCH ×2 (09:08→21:19)
[2023-05-19] MEDS: BUMETANIDE 1 MG TAB PO SCH ×2 (09:08→18:07)
[2023-05-19] MEDS: DULoxetine HCL 20 MG CAP PO SCH (09:08)
[2023-05-19] MEDS: oxyBUTYnin chloride 5 MG TAB PO SCH (09:09)
[2023-05-19] MEDS: GABAPENTIN 300 MG CAP PO SCH (09:09)
[2023-05-19] MEDS: METOPROLOL SUCC 50MG EXT REL TAB PO SCH (09:09)
[2023-05-19] MEDS: ISOSORBIDE MONO EXTENDED REL 30 MG TABCR PO SCH (09:09)
[2023-05-19] MEDS: PANTOprazole 40 MG TAB PO SCH (09:10)
[2023-05-19] MEDS: POLYETHYLENE (MIRALAX) 17 GM PACK PO PRN (09:18)
--- NOTE | 2023-05-19 10:20 | Orthopedic Progress Note ---
Date of Service May 19, 2023 Assessment & Plan (1) Intertrochanteric fracture of left femur: Plan: I answered all the patient's questions this morning. As stated above she says she is fine with nonsurgical management but she did ask me to speak with her son Ashish. I called her son Ashish Richardson at [phone]. I explained to him that she is a high risk surgical candidate secondary to her end-stage renal disease, uncontrolled diabetes, and poor bone quality. There is a significant chance that should she sustain a complication from surgery which could make her worse off than she is now. Her ambulatory capacity is quite limited. She is already in a wheelchair most of the time, and she falls on average once a month. Therefore, I do not feel that the potential benefits of surgery outweigh the risks. Ashish said he spoke with his family yesterday and they are all in agreement that they would like to avoid surgery for her. Therefore nonsurgical treatment will be the plan. Recommend that the patient be nonweightbearing on the left lower extremity with assistance. She may need to be on bedrest for a couple of days due to pain however, once she is comfortable she can transfer from bed to chair while maintaining nonweightbearing on the left lower extremity. DVT prophylaxis per the primary team. She will likely need placement into a rehab or long-term facility. Orthopedics will continue to follow her while she is an inpatient. Follow-up with KELSEY Reyes, my orthopedic PA, 4 weeks after discharging from the hospital with repeat x-rays of her left hip to be done at that time. Admission and Anticipated Discharge Date Admission Date: May 18, 2023 Subjective Patient seen and examined on a.m. rounds. She reports that she was able to sleep last night. The medications for pain are helping so long as she does not move her leg she says she is fairly comfortable. Denies any numbness or tin gling in the toes. She had a chance to think about what we talked about yesterday in the emergency room about her treatment options. She says she is okay with not having surgery. However she did asked that I speak with her son Ashish. Physical Exam Physical Exam: On exam she is resting comfortably in bed in no acute distress. Alert and oriented x3. Left lower extremity reveals the toes to continue to be warm and well-perfused. Palpable dorsalis pedis and posterior tibial pulses. sensory intact to light touch in the dorsal and plantar aspects of the foot. Results & Data Vital Signs (Past 12 Hours) Vital Signs Temp Pulse Resp BP Pulse Ox O2 Del Method 05/19/23 07:41 36.9 C 73 18 05/19/23 07:41 36.9 C 73 18 154/85 H 97 Room Air 05/19/23 03:34 36.8 C 84 20 121/86 92 Room Air 05/19/23 01:42 Room Air 05/18/23 23:07 36.5 C 78 18 137/75 93 Room Air Laboratory Results Hemoglobin A1c came back as 8.4. This is better than what she reports she previously was at at 9 or 10, however remains elevated which would place her at high risk for complications from surgery.
--- NOTE | 2023-05-19 10:36 | Pharmacy Report ---
Pharmacy Glycemic Short Note 2 - Date of Service May 19, 2023 - Glycemic Short BSG Results (Last 24 hours): 05/18/23 05/18/23 05/18/23 13:53 17:31 20:00 Glucose 141 H POC Glucose 166 H 179 H 05/19/23 05/19/23 06:13 08:11 Glucose 165 H POC Glucose 138 H OUTPATIENT ANTIDIABETIC REGIMEN: * Novolog 70/30 66 units AM, 56 units PM * A1c = 8.9% * However, this result is likely somewhat unreliable in ESRD patients d/t interactions between the A1c analyzing technique and high levels of urea in ESRD, reduced RBC life span, iron deficiency anemia, and EPO administration. HbA1c > 7.5% in ESRD patient may overestimate the extent of hyperglycemia in ESRD patients. ASSESSMENT: * 72-year-old female admitted with intertrochanteric fracture of left femur d/t fall out of wheelchair, PMH ESRD on PD, DM, HTN, HLD, stroke, hypothyroidism, GERD, depression, RLS. Patient minimally ambulatory at baseline, mostly uses wheelchair. * Plan for non-surgical treatment at this time. * Outpatient regimen is premixed basal/prandial insulin of NovoLog 70/30 mix insulin. * Pre-mixed insulin is difficult to titrate since it is already in a fixed distribution of basal:prandial insulin. Continuing pre-mixed insulin for admission typically lead to hypoglycemia d/t changing PO status but rapid acting insulin is unable to be held. * Patient started on basal bolus insulin last night on admission, blood sugars at goal, continue to follow and adjust to goal blood sugar. PLAN FOR INPATIENT GLYCEMIC CONTROL: * Basal insulin * Lantus 20 units SQ BID * Bolus insulin * NovoLog per scale ACHS or Q6hrs while NPO * Goal Range: Low 110 mg/dL - High 140 mg/dL * Correction Factor: 20 mg/dL/unit * Nutritional / Prandial insulin per carb ratio of 1 unit per 6 grams CHO consumed
--- NOTE | 2023-05-19 12:49 | Nephrology Progress Note ---
Date of Service May 19, 2023 Assessment & Plan (1) ESRD (end stage renal disease) on dialysis: Plan: Her OP rx is 4 x 2L exchanges over 8 hours. She ran 3 exchanges yesterday night . - plan to resume routine PD today evening( Orders in for Dialysis nurse) - However if she is going for surgery tonight this is to be withheld. ->>>needs to go to OR w/ dry abdomen. Her volume status and BP are acceptable; potassium, calcium other chemistries at goal. not currently anemic. >will have daily exit site care w/ dialysis nurse >plan for her to go to OR w/ dry abdomen >if > 3 days abtx planned, will need antifungal prophylaxis >>>needs special consideration of bowel regimen maribell w/ pain meds perioperatively to ensure good daily BM and lower risk of peritonitis daily bmp while in house SPECIAL CONSIDERATIONS BEFORE SURGERY >will need measures taken to protect PD catheter and tunnel/exit site while in the OR and perioperatively >pls notify nephro electronic scale tester immediately if any breach/entry into peritoneal cavity during surgery so that post operative dialysis can be managed accordingly Care coordinated w/ Dr Benjamin (2) Intertrochanteric fracture of left femur: Plan: Care for protecting catheter and exit site/tunnel as well as timing to go to preop as above Admission and Anticipated Discharge Date Admission Date: May 18, 2023 Subjective Patient seen and examined , Comfortable, Pain in control. Wants ortho to speak to her son before deciding on Surgery. Review of Systems Review of Systems: All systems reviewed & are unremarkable except as noted in HPI & below Results & Data Vital Signs (Past 12 Hours) Vital Signs Temp Pulse Pulse Resp BP Pulse Ox O2 Del Method 05/19/23 06:00 76 05/19/23 11:17 37.1 C 87 18 158/81 H 97 Room Air 05/19/23 07:41 36.9 C 73 18 05/19/23 07:41 36.9 C 73 18 154/85 H 97 Room Air 05/19/23 03:34 36.8 C 84 20 121/86 92 Room Air 05/19/23 01:42 Room Air Laboratory Results 05/19/23 06:13 05/19/23 06:13
--- NOTE | 2023-05-19 13:53 | Hospitalist Progress Note ---
Date of Service May 19, 2023 Assessment & Plan (1) Fall: (2) Intertrochanteric fracture of left femur: Plan: Patient is 72-year-old female with PMH ESRD on PD, insulin-dependent diabetes, HTN, HLD, stroke, hypothyroidism, GERD, depression, RLS presented to ER with complaint of fall out of wheelchair and left hip pain today. Minimally ambulatory at baseline, mostly uses wheelchair Hip x-ray: Mildly displaced left femoral intertrochanteric fracture per ra diology read. + Comminuted left intertrochanteric femur fracture per my interpretation Bedrest and pain medications Ortho consult. Dr. Dennison evaluated patient and feels patient high surgical risk and with current minimal baseline ambulation likely will not be surgical candidate. Will allow diet tonight and ortho to reevaluate patient tomorrow. Anesthesia consult Has been complaining of more pain with any movement of the left lower extremity Appreciate Ortho input and recommendation The patient and her her son are against any sort of surgery Discussed with the patient and the son, the son would like to have a second thought about surgery and is going to discuss that with the surgeon again PT and OT has been requested Will need placement Medical clearance for possible surgery Does not have any chest pain or shortness of breath with usual activities at home Her echo from 2021, EKG from this admission and also chest x-ray reviewed and there is no contraindication for proposed surgery There is no contraindication of surgery if undertaken (3) End stage renal disease: Plan: ESRD on PD Last PD yesterday evening Continue renal meds, [facility] consulted for assistance with dialysis We will continue peritoneal dialysis (4) DM type 2 (diabetes mellitus, type 2): Plan: Insulin-dependent diabetes A1c: 10 on 12/25/2022 Hold home NovoLog 70/30 Basal bolus insulin per protocol Glycemic pharmacy consult A1c in a.m.-high at 8.4 (5) History of stroke: Plan: Continue aspirin, Plavix, atorvastatin. Will continue aspirin and Plavix for now and will plan to hold if reconsi deration for surgical procedure (6) Hypertension: Plan: Continue amlodipine, metoprolol succinate, isosorbide (7) Hyperlipidemia: Plan: Continue atorvastatin (8) Hypothyroid: Plan: Continue levothyroxine (9) GERD (gastroesophageal reflux disease): Plan: Continue PPI (10) Depression: Plan: Continue home meds DVT Prophylaxis SCDs Will need some form of anticoagulation as the patient is not willing to go for surgery DNR/DNI as per discussion with pt Follows with Dr Guidry for routine care Discussed with the son in detail about the surgery He will discuss again with the orthopedic surgeon and decide later Admission and Anticipated Discharge Date Admission Date: May 18, 2023 Subjective 05/19/2023 The patient was seen and examined in medical telemetry unit Has been complaining of left hip pain especially with movement Denies any other significant symptoms She is on peritoneal dialysis at home Review of Systems Review of Systems: All systems reviewed and are unremarkable except as noted below Musculoskeletal: Pain in the left hip and the pain is worse with any movement of the left lower extremity Physical Exam Physical Exam: Lying in bed without any acute distress Constitutional: well developed, well nourished, + ill appearing and + obese Eyes: PERRL, conjunctivae normal, anicteric sclerae ENMT: external ear and nose normal, oropharynx normal Neck: trachea midline, no thyromegaly Respiratory: no respiratory distress Auscultation: + diminished lung sounds and + crackles (Minimal crackles at the bases) Cardiovascular: Rate/Rhythm: regular rate and regular rhythm; not tachycardic Heart Sounds: normal S1 and normal S2; no murmur Extremities: + edema (Trace edema bilateral) Gastrointestinal (Abdomen): Inspection/Auscultation: + abdomen distended and normal bowel sounds Percussion/Palpation: + abdomen tender (Minimally tender) and abdomen soft Musculoskeletal: No acute arthritis in any of the joint but any movement of the left lower extremity causes pain in the left hip Neurologic: normal touch/pain/proprioception, moves all extremities and + focal motor deficit (Except less movement in the left lower extremity which causes pain in the h) Psychiatric: A+Ox3, euthymic affect Lymphatic: no cervical or axillary lymphadenopathy Results & Data Results & Data Vital Signs (Past 12 Hours) Vital Signs Temp Pulse Pulse Resp BP Pulse Ox O2 Del Method 05/19/23 06:00 76 05/19/23 11:17 37.1 C 87 18 158/81 H 97 Room Air 05/19/23 07:41 36.9 C 73 18 05/19/23 07:41 36.9 C 73 18 154/85 H 97 Room Air 05/19/23 03:34 36.8 C 84 20 121/86 92 Room Air 05/19/23 01:42 Room Air Laboratory Results Short CBC 05/18/23 05/19/23 Range/Units 13:53 06:13 WBC 10.07 9.64 (4.8-10.8) K/ul Hgb 12.4 10.3 L (12.0-16.0) g/dl Hct 35.6 L 30.4 L (37.0-47.0) % Plt Count 264 235 (130-400) K/uL BMP 05/18/23 05/19/23 13:53 06:13 Sodium 137 135 L Potassium 4.1 5.0 D Chloride 96 L 95 L Carbon Dioxide 26 28 BUN 63 H 61 H Creatinine 5.65 H* 6.01 H* D Glucose 141 H 165 H Calcium 9.5 9.1 Liver Function 05/18/23 Range/Units 13:53 Total Bilirubin 0.3 (0.2-1.0) mg/dl AST 18 (13-39) U/L ALT 14 (7-52) U/L Alkaline Phosphatase 75 (34-104) U/L Albumin 4.0 (3.4-5.0) gm/dl Medications Administered Current Inpatient Medications Amlodipine Besylate (Amlodipine Besylate 5 Mg Tab) 10 mg PO DAILY [facility] Stop: 06/18/23 08:59 Last Admin: 05/19/23 09:06 Dose: 10 mg Aspirin (Aspirin 81 Mg Ectab) 81 mg PO DAILY [facility] Stop: 06/18/23 08:59 Last Admin: 05/19/23 09:06 Dose: 81 mg Atorvastatin Calcium (Atorvastatin 40 Mg Tab) 40 mg PO DAILY [facility] Stop: 06/18/23 08:59 Last Admin: 05/19/23 09:07 Dose: 40 mg Bisacodyl (Bisacodyl 10 Mg Supp) 10 mg [place] DAILY PRN PRN Reason: Constipation Stop: 06/17/23 17:47 Bumetanide (Bumetanide 1 Mg Tab) 4 mg PO BID17 [facility] Stop: 06/18/23 08:59 Last Admin: 05/19/23 09:08 Dose: 4 mg Clopidogrel Bisulfate (Clopidogrel Bisulfate 75 Mg Tab) 75 mg PO QAM [facility] Stop: 06/18/23 08:59 Last Admin: 05/19/23 09:07 Dose: 75 mg Dextrose (Dextrose 50% 50 Ml Syringe) 25 - 50 ml IV UD PRN; Protocol PRN Reason: Hypoglycemia Protocol Stop: 06/17/23 18:16 Docusate Sodium (Docusate Sodium 100 Mg Cap) 100 mg PO BID [facility] Stop: 06/17/23 20:59 Last Admin: 05/19/23 09:08 Dose: 100 mg Duloxetine HCl (Duloxetine Hcl 20 Mg Cap) 20 mg PO DAILY [facility] Stop: 06/18/23 08:59 Last Admin: 05/19/23 09:08 Dose: 20 mg Gabapentin (Gabapentin 300 Mg Cap) 300 mg PO QAM [facility] Stop: 06/18/23 08:59 Last Admin: 05/19/23 09:09 Dose: 300 mg Gabapentin (Gabapentin 600 Mg Tab) 600 mg PO QPM [facility] Stop: 06/17/23 20:59 Last Admin: 05/18/23 20:55 Dose: 600 mg Glucagon (Glucagon For Inj 1 Mg Vial) 1 mg SQ UD PRN; Protocol PRN Reason: Hypoglycemia Protocol Stop: 06/17/23 18:16 Glucose (Glucose 10 Tab/Tube) 4 - 8 tab PO UD PRN; Protocol PRN Reason: Hypoglycemia Treatment Stop: 06/17/23 18:16 Glucose (Glucose 40% Gel 15 Gm Tube) 15 - 30 gm PO UD PRN; Protocol PRN Reason: Hypoglycemia Protocol Stop: 06/17/23 18:16 Hydromorphone HCl (Hydromorphone Inj 0.5 Mg/0.5 Ml Syr) 0.25 mg IV Q4H PRN PRN Reason: Mod-Sev Pain (Scale 4-10) Stop: 06/01/23 17:47 Last Admin: 05/19/23 12:30 Dose: 0.25 mg Cefazolin Sodium (Ancef 2000mg) 2,000 mg in 15 mls @ 3.75 mls/min IV PREOP [facility]LEY; Protocol Stop: 05/20/23 05:59 Last Admin: 05/19/23 08:57 Dose: Not Given Acetaminophen (Ofirmev) 1,000 mg in 100 mls @ 400 mls/hr IV Q8H [facility] Stop: 05/20/23 17:59 Last Infusion: 05/19/23 11:29 Dose: Infused Insulin Aspart (Insulin Aspart Per Unit Charge) 0 units SC ACHS [facility] Stop: 06/17/23 20:59 Last Admin: 05/19/23 13:15 Dose: 9 units Insulin Glargine (Lantus Per Unit Charge) 20 units SQ BID [facility] Stop: 06/17/23 20:59 Last Admin: 05/19/23 09:05 Dose: 20 units Isosorbide Mononitrate (Isosorbide Orange Extended Rel 30 Mg Tabcr) 30 mg PO QAM [facility] Stop: 06/18/23 08:59 Last Admin: 05/19/23 09:09 Dose: 30 mg Levothyroxine Sodium (Levothyroxine Sodium 50 Mcg Tablet) 50 mcg PO DAILYBB [facility] Stop: 06/18/23 06:29 Last Admin: 05/19/23 06:04 Dose: 50 mcg Magnesium Hydroxide (Magnesium Hydroxide Susp 30 Ml Udc) 30 ml PO DAILY PRN PRN Reason: Constipation Stop: 06/17/23 17:47 Melatonin (Melatonin 3 Mg Tab) 9 mg PO HS PRN PRN Reason: Sleep Stop: 06/17/23 18:27 Metoprolol Succinate (Metoprolol Succ 50mg Ext Rel Tab) 50 mg PO DAILY [facility] Stop: 06/18/23 08:59 Last Admin: 05/19/23 09:09 Dose: 50 mg Mirtazapine (Mirtazapine Tab 15 Mg Tab) 15 mg PO HS [facility] Stop: 06/17/23 20:59 Last Admin: 05/18/23 20:54 Dose: 15 mg Miscellaneous (Carbohydrates For Hypoglycemia ) 15 - 30 gm PO UD PRN PRN Reason: Hypoglycemia Protocol Stop: 06/17/23 18:16 Miscellaneous Information (Pharmacy Glycemic Mgmt Consult) 1 each N/A UD PRN PRN Reason: Consult Stop: 06/17/23 18:16 Naloxone HCl (Naloxone Hcl 0.4 Mg/1 Ml Vial/Carp) 0.1 mg IV UD PRN PRN Reason: Opiate Overdose Stop: 06/17/23 17:47 Ondansetron HCl (Ondansetron Inj 2 Mg/Ml 2 Ml Vial) 4 mg IV Q6H PRN PRN Reason: Nausea Stop: 06/17/23 17:47 Oxybutynin Chloride (Oxybutynin Chloride 5 Mg Tab) 2.5 mg PO DAILY [facility] Stop: 06/18/23 08:59 Last Admin: 05/19/23 09:09 Dose: 2.5 mg Pantoprazole Sodium (Pantoprazole 40 Mg Tab) 40 mg PO DAILY [facility] Stop: 06/18/23 08:59 Last Admin: 05/19/23 09:10 Dose: 40 mg Polyethylene Glycol (Polyethylene (Miralax) 17 Gm Pack) 17 gm PO DAILY PRN PRN Reason: Constipation Stop: 06/17/23 17:47 Last Admin: 05/19/23 09:18 Dose: 17 gm Ropinirole HCl (Ropinirole Hcl 0.25 Mg Tablet) 0.25 mg PO HS [facility] Stop: 06/17/23 20:59 Last Admin: 05/18/23 20:54 Dose: 0.25 mg Sevelamer HCl (Sevelamer Hcl 800 Mg Tablet) 800 mg PO TIDM [facility] Stop: 06/18/23 07:59 Last Admin: 05/19/23 12:36 Dose: 800 mg Vitamin D (Cholecalciferol 5,000 Units 125 Mcg Tab) 5,000 units PO DAILY [facility] Stop: 06/18/23 08:59 Last Admin: 05/19/23 09:07 Dose: 5,000 units
[2023-05-19] MEDS ORDERED: POLYETHYLENE (MIRALAX) 17 GM PACK PO ONE (18:45)
[2023-05-19] MEDS: GABAPENTIN 600 MG TAB PO SCH (21:18)
[2023-05-19] MEDS: rOPINIRole HCL 0.25 MG TABLET PO SCH (21:18)
[2023-05-19] MEDS: MIRTAZAPINE TAB 15 MG TAB PO SCH (21:18)
--- NOTE | 2023-05-19 22:35 | Electrocardiogram Report ---
Test Reason : Blood Pressure : / mmHG Vent. Rate : 079 BPM Atrial Rate : 079 BPM P-R Int : 172 ms QRS Dur : 090 ms QT Int : 392 ms P-R-T Axes : 055 -03 108 degrees QTc Int : 449 ms Normal sinus rhythm Abnormal ECG When compared with ECG of 12-OCT-2022 21:33, T wave inversion more evident in Lateral leads Confirmed by Palomo Cage ([id number]) on 05/19/2023 10:34:51 PM Referred By: Confirmed By:Palomo Cage
--- NOTE | 2023-05-19 23:05 | Electrocardiogram Report ---
Test Reason : Blood Pressure : / mmHG Vent. Rate : 073 BPM Atrial Rate : 073 BPM P-R Int : 174 ms QRS Dur : 088 ms QT Int : 408 ms P-R-T Axes : 061 -01 102 degrees QTc Int : 449 ms Normal sinus rhythm T wave abnormality, consider lateral ischemia Abnormal ECG When compared with ECG of 18-MAY-2023 13:55, No significant change was found Confirmed by Palomo Cage ([id number] on 05/19/2023 11:04:52 PM Referred By: REFERRED SELF Confirmed By:Palomo Cage
[2023-05-20] MEDS: ACETAMINOPHEN 1,000 MG/100 ML VIAL IV SCH ×2 (02:09→10:38)
[2023-05-20] MEDS: LEVOTHYROXINE SODIUM 50 MCG TABLET PO SCH (06:24)
[2023-05-20 06:54] LABS: Basophils # (auto) 0.11 K/uL (0.00-0.20); Basophils % (auto) 0.9 %; Eosinophils # (auto) 0.09 K/uL (0.00-0.50); Eosinophils % (auto) 0.7 %; Hemoglobin 9.1 g/dl (12.0-16.0); Immature Granulocytes # (auto) 0.15 K/uL (0.01-0.20); Immature Granulocytes % (auto) 1.2 %; Lymphocytes # (auto) 1.23 K/uL (1.20-3.40); Lymphocytes % (auto) 10.2 %; Mean Corpuscular Hemoglobin 30.7 pg (25.0-34.0); Mean Corpuscular Hgb Conc 33.7 g/dL (32.0-36.0); Mean Corpuscular Volume 91.2 fL (80.0-100.0); Mean Platelet Volume 10.6 fL (9.4-12.4); Monocytes # (auto) 1.13 K/uL (0.11-0.59); Monocytes % (auto) 9.4 %; Neutrophils % (auto) 77.6 %; Nucleated RBC # (auto) 0.02 K/uL (0.00-0.12); Nucleated RBC % (auto) 0.2 %; Platelet Count 209 K/uL (130-400); RDW Coefficient of Variation 12.6 % (11.5-14.5); RDW Standard Deviation 42.1 fL (36.4-46.3); Red Blood Count 2.96 M/uL (4.20-5.40); White Blood Count 12.01 K/ul (4.8-10.8)
[2023-05-20 07:14] LABS: BUN Creatinine Ratio 9.8 (10-20); Calcium 8.3 mg/dl (8.6-10.3); Creatinine Clr Calc Pharmacy 8.8 ml/min; Est GFR (African American) 6.7 ml/min; Est GFR (Non-African American) 5.8 ml/min; Potassium 4.4 mmol/L (3.5-5.1)
[2023-05-20] MEDS: LANTUS PER UNIT CHARGE SQ SCH ×2 (09:19→21:29)
[2023-05-20] MEDS: INSULIN ASPART PER UNIT CHARGE SC SCH ×4 (09:19→21:27)
[2023-05-20] MEDS: CHOLECALCIFEROL 5,000 UNITS 125 MCG TAB PO SCH (09:22)
[2023-05-20] MEDS: ASPIRIN 81 MG ECTAB PO SCH (09:22)
[2023-05-20] MEDS: CLOPIDOGREL BISULFATE 75 MG TAB PO SCH (09:22)
[2023-05-20] MEDS: SEVELAMER HCL 800 MG TABLET PO SCH ×3 (09:22→17:45)
[2023-05-20] MEDS: METOPROLOL SUCC 50MG EXT REL TAB PO SCH (09:22)
[2023-05-20] MEDS: PANTOprazole 40 MG TAB PO SCH (09:23)
[2023-05-20] MEDS: amLODIPine BESYLATE 5 MG TAB PO SCH (09:23)
[2023-05-20] MEDS: BUMETANIDE 1 MG TAB PO SCH ×2 (09:23→17:45)
[2023-05-20] MEDS: ATORVASTATIN 40 MG TAB PO SCH (09:23)
[2023-05-20] MEDS: oxyBUTYnin chloride 5 MG TAB PO SCH (09:23)
[2023-05-20] MEDS: ISOSORBIDE MONO EXTENDED REL 30 MG TABCR PO SCH (09:24)
[2023-05-20] MEDS: DULoxetine HCL 20 MG CAP PO SCH (09:24)
[2023-05-20] MEDS: GABAPENTIN 300 MG CAP PO SCH (09:24)
[2023-05-20] MEDS: DOCUSATE SODIUM 100 MG CAP PO SCH ×2 (09:29→21:18)
[2023-05-20] MEDS: HYDROmorphone INJ 0.5 MG/0.5 ML SYR IV PRN ×3 (09:34→21:43)
--- NOTE | 2023-05-20 10:41 | Orthopedic Progress Note ---
Date of Service May 20, 2023 Assessment & Plan (1) Intertrochanteric fracture of left femur: Plan: Nonweightbearing on the left lower extremity with a walker and assistance Physical therapy and Occupational Therapy daily. DVT prophylaxis per the primary team. She will likely need placement into a rehab or prison facility. Orthopedics will continue to follow her while she is an inpatient. Follow-up with KELSEY Reyes my orthopedic PA, 4 weeks after discharging from the hospital with repeat x-rays of her left hip to be done at that time. Admission and Anticipated Discharge Date Admission Date: May 18, 2023 Subjective Patient seen and examined on a.m. rounds. She is done well overnight. Pain is well controlled on oral medications. Physical Exam Physical Exam: On exam she is resting comfortably in bed in no acute distress. Alert and oriented x3. Left lower extremity reveals the toes to continue to be warm and well-perfused. Palpable dorsalis pedis and posterior tibial pulses. sensory intact to light touch in the dorsal and plantar aspects of the foot. Results & Data Vital Signs (Past 12 Hours) Vital Signs Temp Pulse Resp BP Pulse Ox O2 Del Method O2 Flow Rate 05/20/23 09:14 37.5 C 83 18 05/20/23 07:57 37.5 C 83 18 171/80 H 90 Room Air 05/20/23 03:26 95 Oxymask 2 05/20/23 03:02 37.1 C 90 18 110/65 89 L Room Air 05/20/23 01:20 Room Air 05/19/23 23:12 37.4 C 89 18 121/72 90 Room Air
--- NOTE | 2023-05-20 11:48 | Hospitalist Progress Note ---
Date of Service May 20, 2023 Assessment & Plan (1) Fall: (2) Intertrochanteric fracture of left femur: Plan: Patient is 72-year-old female with PMH ESRD on PD, insulin-dependent diabetes, HTN, HLD, stroke, hypothyroidism, GERD, depression, RLS presented to ER with complaint of falling out of wheelchair and left hip pain. Minimally ambulatory at baseline, mostly uses wheelchair Hip x-ray: Mildly displaced left femoral intertrochanteric fracture. Orthopedics evaluated patient and feels patient high surgical risk and with current minimal baseline ambulation likely will not be surgical candidate. Continue pain control Continue PT OT; might need rehab Pain control with IV Tylenol and Dilaudid (3) End stage renal disease: Plan: ESRD on PD Continue renal meds, [facility] consulted for assistance with dialysis (4) DM type 2 (diabetes mellitus, type 2): Plan: Insulin-dependent diabetes A1c: 10 on 12/25/2022 Hold home NovoLog 70/30 Basal bolus insulin per protocol Glycemic pharmacy consult A1c of 8.4% (5) History of stroke: Plan: Continue aspirin, Plavix, atorvastatin. (6) Hypertension: Plan: Continue amlodipine, metoprolol succinate, isosorbide (7) Hyperlipidemia: Plan: Continue atorvastatin (8) Hypothyroid: Plan: Continue levothyroxine (9) GERD (gastroesophageal reflux disease): Plan: Continue PPI (10) Depression: Plan: Continue home meds DVT Prophylaxis heparin DNR/DNI. Please note the above document was generated using voice recognition software. It may contain grammatical, syntax or spelling errors. Any formal questions or concerns about the content, text or information contained within the body of this dictation should be directly addressed to the provider for clarification Admission and Anticipated Discharge Date Admission Date: May 18, 2023 Subjective Patient seen and examined at bedside. Patient is lying on the bed comfortably; reports that she is feeling better compared to yesterday. Pain is well controlled. Review of Systems Review of Systems: All systems reviewed & are unremarkable except as noted in Subjective Physical Exam Physical Exam: Constitutional: Alert orient x3; not in distress. Hard of hearing. Respiratory: Bilateral basal breath sound Cardiovascular: RRR, no murmur, no edema Vessels: no JVD or carotid bruit Chest: normal inspection of chest Abdomen: Soft, nontender. Peritoneal dialysis catheter in place. Musculoskeletal: no cyanosis or clubbing, left leg externally rotated, ROM severely limited due to pain. No overlying bruise on the hip. Skin: no rashes, warm and dry normal turgor Neurologic: PERRL, EOMI, accommodation nl, no face palsy, no dysarthria CN's II- XI intact bilaterally and moves all extremities Psychiatric: A+Ox3, euthymic affect Results & Data Results & Data Vital Signs (Past 12 Hours) Vital Signs Temp Pulse Resp BP Pulse Ox O2 Del Method O2 Flow Rate 05/20/23 09:14 37.5 C 83 18 05/20/23 07:57 37.5 C 83 18 171/80 H 90 Room Air 05/20/23 03:26 95 Oxymask 2 05/20/23 03:02 37.1 C 90 18 110/65 89 L Room Air 05/20/23 01:20 Room Air Laboratory Results Laboratory Results WBC 12.01 K/ul (4.8-10.8) H 05/20/23 06:08 RBC 2.96 M/uL (4.20-5.40) L 05/20/23 06:08 Hgb 9.1 g/dl (12.0-16.0) L 05/20/23 06:08 Hct 27.0 % (37.0-47.0) L 05/20/23 06:08 MCV 91.2 fL (80.0-100.0) 05/20/23 06:08 MCH 30.7 pg (25.0-34.0) 05/20/23 06:08 MCHC 33.7 g/dL (32.0-36.0) 05/20/23 06:08 RDW Std Deviation 42.1 fL (36.4-46.3) 05/20/23 06:08 RDW Coeff of [place] 12.6 % (11.5-14.5) 05/20/23 06:08 Plt Count 209 K/uL (130-400) 05/20/23 06:08 MPV 10.6 fL (9.4-12.4) 05/20/23 06:08 Immature Gran % (Auto) 1.2 % 05/20/23 06:08 Neut % (Auto) 77.6 % 05/20/23 06:08 Lymph % (Auto) 10.2 % 05/20/23 06:08 [place] % (Auto) 9.4 % 05/20/23 06:08 Eos % (Auto) 0.7 % 05/20/23 06:08 Baso % (Auto) 0.9 % 05/20/23 06:08 Neut # (Auto) 9.30 K/uL (1.40-6.50) H 05/20/23 06:08 Lymph # (Auto) 1.23 K/uL (1.20-3.40) 05/20/23 06:08 [place] # (Auto) 1.13 K/uL (0.11-0.59) H 05/20/23 06:08 Eos # (Auto) 0.09 K/uL (0.00-0.50) 05/20/23 06:08 Baso # (Auto) 0.11 K/uL (0.00-0.20) 05/20/23 06:08 Immature Gran # (Auto) 0.15 K/uL (0.01-0.20) 05/20/23 06:08 Absolute Nucleated RBC 0.02 K/uL (0.00-0.12) 05/20/23 06:08 Nucleated RBC % (auto) 0.2 % 05/20/23 06:08 PT 10.8 Seconds (9.0-12.0) 05/18/23 13:53 INR 1.0 (0.9-1.1) 05/18/23 13:53 APTT 24.8 Seconds (21.0-31.0) 05/18/23 13:53 PTT Ratio 0.9 05/18/23 13:53 Sodium 129 mmol/L (136-145) L 05/20/23 06:08 Potassium 4.4 mmol/L (3.5-5.1) 05/20/23 06:08 Chloride 91 mmol/L (98-107) L 05/20/23 06:08 Carbon Dioxide 25 mmol/L (21-32) 05/20/23 06:08 Anion Gap 13 (3-11) H 05/20/23 06:08 BUN 65 mg/dl (6-23) H 05/20/23 06:08 Creatinine 6.62 mg/dl (0.6-1.2) H* D 05/20/23 06:08 Est Cr Clr Drug Dosing 8.8 ml/min 05/20/23 06:08 Est GFR ( Amer) 6.7 ml/min 05/20/23 06:08 Est GFR (Non-Af Amer) 5.8 ml/min 05/20/23 06:08 BUN/Creatinine Ratio 9.8 (10-20) L 05/20/23 06:08 Glucose 241 mg/dl (70-99(Fasting)) H 05/20/23 06:08 POC Glucose 239 mg/dl (70-99) H 05/20/23 11:49 Estimat Average Glucose 194 mg/dl 05/18/23 13:53 Hemoglobin A1c 8.4 % (4.5-5.6) H 05/18/23 13:53 Calcium 8.3 mg/dl (8.6-10.3) L 05/20/23 06:08 Phosphorus 6.7 mg/dl (2.5-4.9) H 05/19/23 06:13 Magnesium 1.7 mg/dl (1.7-2.4) 05/19/23 06:13 Total Bilirubin 0.3 mg/dl (0.2-1.0) 05/18/23 13:53 AST 18 U/L (13-39) 05/18/23 13:53 ALT 14 U/L (7-52) 05/18/23 13:53 Alkaline Phosphatase 75 U/L (34-104) 05/18/23 13:53 Total Protein 7.2 gm/dl (6.0-8.3) 05/18/23 13:53 Albumin 4.0 gm/dl (3.4-5.0) 05/18/23 13:53 Globulin 3.2 gm/dl (2.5-4.0) 05/18/23 13:53 Albumin/Globulin Ratio 1.3 (0.9-2) 05/18/23 13:53 Nasal Screen MRSA (PCR) Negative (Negative) 05/18/23 23:14 SARS-CoV-2, RNA, NAAT NEGATIVE (NEGATIVE) 05/18/23 14:50 Blood Type A Positive 05/18/23 18:05 Antibody Screen NEGATIVE 05/18/23 18:05 Impressions Hip/Pelvis X-Ray 05/18/23 13:57 XR hip LT 2V w pelvis CLINICAL HISTORY: fall, pain COMPARISON STUDY: None. FINDINGS: There is a mildly displaced and comminuted intertrochanteric fracture of the proximal left femur. The fracture extends into the proximal shaft of the left femur. No dislocation. No additional fractures identified within the pelvis or right hip. A peritoneal catheter seen within the deep pelvis. IMPRESSION: Mildly displaced left femoral intertrochanteric fracture as described above. ACT 112: Negative or not required by law. Electronically signed by: Bryan Freeman M.D. 05/18/2023 3:45 PM Chest X-Ray 05/18/23 20:03 XR chest 1V portable CLINICAL HISTORY: pre-op COMPARISON STUDY: Chest radiograph October 12, 2022. FINDINGS: Patient is rotated. This likely accounts for mediastinal widening. Cardiac size is normal. There is no evidence for pulmonary edema. No consolidation to suggest pneumonia. No pneumothorax or pleural effusion. IMPRESSION: No acute cardiopulmonary findings. Rotated study. ACT 112: Negative or not required by law. Electronically signed by: Pacheco Culver M.D. 05/19/2023 6:53 AM
--- NOTE | 2023-05-20 12:57 | Nephrology Progress Note ---
Date of Service May 20, 2023 Assessment & Plan (1) ESRD (end stage renal disease) on dialysis: Plan: Her OP rx is 4 x 2L exchanges over 8 hours. - Sodium has been dropping and BP is on the higher side. - Continue on routine PD today evening, Prescription has been changed to all 2.5 D , with addition of another 2l and 5 cycles.. Her volume status and BP are acceptable; potassium, calcium other chemistries at goal. not currently anemic. >will have daily exit site care w/ dialysis nurse Daily bmp while in house (2) Intertrochanteric fracture of left femur: Plan: Kate is for conservative management, OT/PT Before discharge, Admission and Anticipated Discharge Date Admission Date: May 18, 2023 Subjective Patient seen and examined at bedside. Patient is lying on the bed comfortably; reports that she is feeling better compared to yesterday. Pain is well controlled. Not for Surgery,Conservative management planned. Physical Exam Physical Exam: Constitutional: Alert orient x3; not in distress. Respiratory: Bilateral basal breath sound Cardiovascular: RRR, no murmur, no edema Vessels: no JVD or carotid bruit Chest: normal inspection of chest Abdomen: Soft, nontender. Peritoneal dialysis catheter in place. Musculoskeletal: no cyanosis or clubbing, left leg externally rotated, ROM severely limited due to pain. No overlying bruise on the hip. Skin: no rashes, warm and dry normal turgor Results & Data Vital Signs (Past 12 Hours) Vital Signs Temp Pulse Pulse Resp BP Pulse Ox O2 Del Method 05/20/23 06:00 84 05/20/23 12:05 36.5 C 82 18 149/74 H 90 Room Air 05/20/23 09:14 37.5 C 83 18 05/20/23 07:57 37.5 C 83 18 171/80 H 90 Room Air 05/20/23 03:26 95 Oxymask 05/20/23 03:02 37.1 C 90 18 110/65 89 L Room Air 05/20/23 01:20 Room Air O2 Flow Rate 05/20/23 06:00 05/20/23 12:05 05/20/23 09:14 05/20/23 07:57 05/20/23 03:26 2 05/20/23 03:02 05/20/23 01:20 Laboratory Results 05/20/23 06:08 05/20/23 06:08
[2023-05-20] MEDS: HEPARIN SOD 5,000 UNIT/0.5 ML VIAL SQ SCH ×2 (13:17→21:10)
[2023-05-20] MEDS: POLYETHYLENE (MIRALAX) 17 GM PACK PO PRN (16:49)
[2023-05-20] MEDS ORDERED: POLYETHYLENE (MIRALAX) 17 GM PACK PO ONE (19:11)
[2023-05-20] MEDS: GABAPENTIN 600 MG TAB PO SCH (21:10)
[2023-05-20] MEDS: rOPINIRole HCL 0.25 MG TABLET PO SCH (21:12)
[2023-05-20] MEDS: MIRTAZAPINE TAB 15 MG TAB PO SCH (21:12)
[2023-05-21] MEDS: LEVOTHYROXINE SODIUM 50 MCG TABLET PO SCH (06:17)
[2023-05-21] MEDS: HEPARIN SOD 5,000 UNIT/0.5 ML VIAL SQ SCH ×3 (06:17→21:37)
[2023-05-21] MEDS: HYDROmorphone INJ 0.5 MG/0.5 ML SYR IV PRN ×3 (06:17→15:13)
[2023-05-21 08:17] LABS: Calcium 8.6 mg/dl (8.6-10.3); Creatinine Clr Calc Pharmacy 8.9 ml/min; Est GFR (African American) 6.7 ml/min; Est GFR (Non-African American) 5.8 ml/min; Potassium 4.4 mmol/L (3.5-5.1)
[2023-05-21] MEDS: LANTUS PER UNIT CHARGE SQ SCH ×2 (09:25→20:30)
[2023-05-21] MEDS: INSULIN ASPART PER UNIT CHARGE SC SCH ×4 (09:25→20:30)
[2023-05-21] MEDS: PANTOprazole 40 MG TAB PO SCH (09:30)
[2023-05-21] MEDS: oxyBUTYnin chloride 5 MG TAB PO SCH (09:30)
[2023-05-21] MEDS: CHOLECALCIFEROL 5,000 UNITS 125 MCG TAB PO SCH (09:31)
[2023-05-21] MEDS: GABAPENTIN 300 MG CAP PO SCH (09:31)
[2023-05-21] MEDS: amLODIPine BESYLATE 5 MG TAB PO SCH (09:31)
[2023-05-21] MEDS: DULoxetine HCL 20 MG CAP PO SCH (09:31)
[2023-05-21] MEDS: ISOSORBIDE MONO EXTENDED REL 30 MG TABCR PO SCH (09:31)
[2023-05-21] MEDS: BUMETANIDE 1 MG TAB PO SCH ×2 (09:32→17:57)
[2023-05-21] MEDS: CLOPIDOGREL BISULFATE 75 MG TAB PO SCH (09:32)
[2023-05-21] MEDS: SEVELAMER HCL 800 MG TABLET PO SCH ×3 (09:32→17:57)
[2023-05-21] MEDS: ATORVASTATIN 40 MG TAB PO SCH (09:32)
[2023-05-21] MEDS: ASPIRIN 81 MG ECTAB PO SCH (09:32)
--- NOTE | 2023-05-21 09:36 | Orthopedic Progress Note ---
Date of Service May 21, 2023 Assessment & Plan (1) Intertrochanteric fracture of left femur: Plan: Nonweightbearing on the left lower extremity with a walker and assistance Ice to affected area Physical therapy and Occupational Therapy daily. DVT prophylaxis per the primary team. Case management for discharge needs. She will likely need rehab or nursing facility, patient says she will be going to long term that she isnt safe to go back home Orthopedics will continue to follow her while she is an inpatient. Follow-up with KELSEY Reyes my orthopedic PA, 4 weeks after discharging from the hospital with repeat x-rays of her left hip to be done at that time. Admission and Anticipated Discharge Date Admission Date: May 18, 2023 Subjective Pt seen and examined bedside. She said she is overall doing well. She is sleeping okay. She reports pain and shocks into her thigh. Pain medication is helping. 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 No calf pain. Physical Exam Physical Exam: Patients leg externally rotated. Tender over hip. She can wiggle all of her toes and ankle. Unable to flex knee or tolerate much movement of her leg. No calf pain. Thigh soft and compressible. Skin warm. No sensation to light touch in her foot which she reports is her baseline. Results & Data Vital Signs (Past 12 Hours) Vital Signs Temp Pulse Pulse Resp BP Pulse Ox O2 Del Method 05/21/23 08:14 36.9 C 80 18 131/70 95 Room Air 05/21/23 08:05 80 18 05/21/23 06:00 74 05/21/23 01:00 85 05/21/23 02:48 36.6 C 80 16 138/76 96 Room Air 05/20/23 21:30 Room Air 05/20/23 23:09 37.2 C 84 16 132/76 90 Room Air
[2023-05-21] MEDS: DOCUSATE SODIUM 100 MG CAP PO SCH ×2 (10:37→20:29)
[2023-05-21] MEDS: METOPROLOL SUCC 50MG EXT REL TAB PO SCH (10:47)
[2023-05-21] MEDS ORDERED: MAGNESIUM HYDROXIDE SUSP 30 ML UDC PO ONE (11:25)
--- NOTE | 2023-05-21 11:30 | Hospitalist Progress Note ---
Date of Service May 21, 2023 Assessment & Plan (1) Fall: (2) Intertrochanteric fracture of left femur: Plan: Patient is 72-year-old female with PMH ESRD on PD, insulin-dependent diabetes, HTN, HLD, stroke, hypothyroidism, GERD, depression, RLS presented to ER with complaint of falling out of wheelchair and left hip pain. Minimally ambulatory at baseline, mostly uses wheelchair Hip x-ray: Mildly displaced left femoral intertrochanteric fracture. Orthopedics evaluated patient and feels patient high surgical risk and with current minimal baseline ambulation likely will not be surgical candidate. Continue pain control Continue PT OT; might need rehab Pain control with scheduled Tylenol and Dilaudid (3) End stage renal disease: Plan: ESRD on PD Continue renal meds, [facility] consulted for assistance with dialysis Fluid restriction started due to hyponatremia (4) DM type 2 (diabetes mellitus, type 2): Plan: Insulin-dependent diabetes A1c: 10 on 12/25/2022 Hold home NovoLog 70/30 Basal bolus insulin per protocol Glycemic pharmacy consult A1c of 8.4% (5) History of stroke: Plan: Continue aspirin, Plavix, atorvastatin. (6) Hypertension: Plan: Continue amlodipine, metoprolol succinate, isosorbide (7) Hyperlipidemia: Plan: Continue atorvastatin (8) Hypothyroid: Plan: Continue levothyroxine (9) GERD (gastroesophageal reflux disease): Plan: Continue PPI (10) Depression: Plan: Continue home meds DVT Prophylaxis heparin DNR/DNI. Please note the above document was generated using voice recognition software. It may contain grammatical, syntax or spelling errors. Any formal questions or concerns about the content, text or information contained within the body of this dictation should be directly addressed to the provider for clarification Admission and Anticipated Discharge Date Admission Date: May 18, 2023 Subjective Patient seen and examined at bedside. She is sitting comfortably on the bed; not in distress. Reports that the pain is well controlled. Had a small bowel movement as well Review of Systems Review of Systems: All systems reviewed & are unremarkable except as noted in Subjective Physical Exam Physical Exam: Constitutional: Alert orient x3; not in distress. Hard of hearing. Respiratory: Bilateral basal breath sound Cardiovascular: RRR, no murmur, no edema Vessels: no JVD or carotid bruit Chest: normal inspection of chest Abdomen: Soft, nontender. Peritoneal dialysis catheter in place. Musculoskeletal: no cyanosis or clubbing, left leg externally rotated, ROM severely limited due to pain. No overlying bruise on the hip. Skin: no rashes, warm and dry normal turgor Neurologic: PERRL, EOMI, accommodation nl, no face palsy, no dysarthria CN's II- XI intact bilaterally and moves all extremities Psychiatric: A+Ox3, euthymic affect Results & Data Results & Data Vital Signs (Past 12 Hours) Vital Signs Temp Pulse Pulse Resp BP Pulse Ox O2 Del Method 05/21/23 11:13 36.6 C 77 16 150/67 H 95 Room Air 05/21/23 08:14 36.9 C 80 18 131/70 95 Room Air 05/21/23 08:05 80 18 05/21/23 06:00 74 05/21/23 01:00 85 05/21/23 02:48 36.6 C 80 16 138/76 96 Room Air Laboratory Results Laboratory Results WBC 12.01 K/ul (4.8-10.8) H 05/20/23 06:08 RBC 2.96 M/uL (4.20-5.40) L 05/20/23 06:08 Hgb 9.1 g/dl (12.0-16.0) L 05/20/23 06:08 Hct 27.0 % (37.0-47.0) L 05/20/23 06:08 MCV 91.2 fL (80.0-100.0) 05/20/23 06:08 MCH 30.7 pg (25.0-34.0) 05/20/23 06:08 MCHC 33.7 g/dL (32.0-36.0) 05/20/23 06:08 RDW Std Deviation 42.1 fL (36.4-46.3) 05/20/23 06:08 RDW Coeff of [place] 12.6 % (11.5-14.5) 05/20/23 06:08 Plt Count 209 K/uL (130-400) 05/20/23 06:08 MPV 10.6 fL (9.4-12.4) 05/20/23 06:08 Immature Gran % (Auto) 1.2 % 05/20/23 06:08 Neut % (Auto) 77.6 % 05/20/23 06:08 Lymph % (Auto) 10.2 % 05/20/23 06:08 Carter % (Auto) 9.4 % 05/20/23 06:08 Eos % (Auto) 0.7 % 05/20/23 06:08 Baso % (Auto) 0.9 % 05/20/23 06:08 Neut # (Auto) 9.30 K/uL (1.40-6.50) H 05/20/23 06:08 Lymph # (Auto) 1.23 K/uL (1.20-3.40) 05/20/23 06:08 Carter # (Auto) 1.13 K/uL (0.11-0.59) H 05/20/23 06:08 Eos # (Auto) 0.09 K/uL (0.00-0.50) 05/20/23 06:08 Baso # (Auto) 0.11 K/uL (0.00-0.20) 05/20/23 06:08 Immature Gran # (Auto) 0.15 K/uL (0.01-0.20) 05/20/23 06:08 Absolute Nucleated RBC 0.02 K/uL (0.00-0.12) 05/20/23 06:08 Nucleated RBC % (auto) 0.2 % 05/20/23 06:08 PT 10.8 Seconds (9.0-12.0) 05/18/23 13:53 INR 1.0 (0.9-1.1) 05/18/23 13:53 APTT 24.8 Seconds (21.0-31.0) 05/18/23 13:53 PTT Ratio 0.9 05/18/23 13:53 Sodium 127 mmol/L (136-145) L 05/21/23 06:56 Potassium 4.4 mmol/L (3.5-5.1) 05/21/23 06:56 Chloride 89 mmol/L (98-107) L 05/21/23 06:56 Carbon Dioxide 22 mmol/L (21-32) 05/21/23 06:56 Anion Gap 16 (3-11) H 05/21/23 06:56 BUN 66 mg/dl (6-23) H 05/21/23 06:56 Creatinine 6.63 mg/dl (0.6-1.2) H* 05/21/23 06:56 Est Cr Clr Drug Dosing 8.9 ml/min 05/21/23 06:56 Est GFR ( Amer) 6.7 ml/min 05/21/23 06:56 Est GFR (Non-Af Amer) 5.8 ml/min 05/21/23 06:56 BUN/Creatinine Ratio 10.0 (10-20) 05/21/23 06:56 Glucose 269 mg/dl (70-99(Fasting)) H 05/21/23 06:56 POC Glucose 301 mg/dl (70-99) H* 05/21/23 11:24 Estimat Average Glucose 194 mg/dl 05/18/23 13:53 Hemoglobin A1c 8.4 % (4.5-5.6) H 05/18/23 13:53 Calcium 8.6 mg/dl (8.6-10.3) 05/21/23 06:56 Phosphorus 6.7 mg/dl (2.5-4.9) H 05/19/23 06:13 Magnesium 1.7 mg/dl (1.7-2.4) 05/19/23 06:13 Total Bilirubin 0.3 mg/dl (0.2-1.0) 05/18/23 13:53 AST 18 U/L (13-39) 05/18/23 13:53 ALT 14 U/L (7-52) 05/18/23 13:53 Alkaline Phosphatase 75 U/L (34-104) 05/18/23 13:53 Total Protein 7.2 gm/dl (6.0-8.3) 05/18/23 13:53 Albumin 4.0 gm/dl (3.4-5.0) 05/18/23 13:53 Globulin 3.2 gm/dl (2.5-4.0) 05/18/23 13:53 Albumin/Globulin Ratio 1.3 (0.9-2) 05/18/23 13:53 Nasal Screen MRSA (PCR) Negative (Negative) 05/18/23 23:14 SARS-CoV-2, RNA, NAAT NEGATIVE (NEGATIVE) 05/18/23 14:50 Blood Type A Positive 05/18/23 18:05 Antibody Screen NEGATIVE 05/18/23 18:05 Impressions Hip/Pelvis X-Ray 05/18/23 13:57 XR hip LT 2V w pelvis CLINICAL HISTORY: fall, pain COMPARISON STUDY: None. FINDINGS: There is a mildly displaced and comminuted intertrochanteric fracture of the proximal left femur. The fracture extends into the proximal shaft of the left femur. No dislocation. No additional fractures identified within the pelvis or right hip. A peritoneal catheter seen within the deep pelvis. IMPRESSION: Mildly displaced left femoral intertrochanteric fracture as described above. ACT 112: Negative or not required by law. Electronically signed by: Bryan Freeman M.D. 05/18/2023 3:45 PM Chest X-Ray 05/18/23 20:03 XR chest 1V portable CLINICAL HISTORY: pre-op COMPARISON STUDY: Chest radiograph October 12, 2022. FINDINGS: Patient is rotated. This likely accounts for mediastinal widening. Cardiac size is normal. There is no evidence for pulmonary edema. No consolidation to suggest pneumonia. No pneumothorax or pleural effusion. IMPRESSION: No acute cardiopulmonary findings. Rotated study. ACT 112: Negative or not required by law. Electronically signed by: Pacheco Culver M.D. 05/19/2023 6:53 AM
[2023-05-21] MEDS: ACETAMINOPHEN 500 MG TAB PO SCH ×3 (12:48→22:40)
--- NOTE | 2023-05-21 14:33 | Pharmacy Report ---
Pharmacy Glycemic Short Note 2 - Date of Service May 21, 2023 - Glycemic Short BSG Results (Last 24 hours): 05/20/23 05/20/23 05/20/23 17:07 20:10 20:11 Glucose POC Glucose 213 H 315 H* 315 H* 05/21/23 05/21/23 05/21/23 06:56 08:11 11:22 Glucose 269 H POC Glucose 269 H 308 H* 05/21/23 05/21/23 11:24 11:26 Glucose POC Glucose 301 H* 300 H OUTPATIENT ANTIDIABETIC REGIMEN: * Novolog 70/30 66 units AM, 56 units PM * A1c = 8.9% * However, this result is likely somewhat unreliable in ESRD patients d/t interactions between the A1c analyzing technique and high levels of urea in ESRD, reduced RBC life span, iron deficiency anemia, and EPO administration. HbA1c > 7.5% in ESRD patient may overestimate the extent of hyperglycemia in ESRD patients. ASSESSMENT: 05/21/23 * Patient's BSGs yesterday were [phone]- patient received 123 units of insulin (60 units of basal and 63 units of bolus). Compared to 05/19, the patient's insulin doubled (66 units total vs 123 units total). * Today's BSGs are 269-300 mg/dL. Will continue Lantus 30 units SQ BID for one more day as yesterday was the first day insulin regimen similar to home regimen was achieved. * Loosened CF to prevent overcorrection but tightened CR to 2. CR was 4 yesterday. Monitor. BACKGROUND * 72-year-old female admitted with intertrochanteric fracture of left femur d/t fall out of wheelchair, PMH ESRD on PD, DM, HTN, HLD, stroke, hypothyroidism, GERD, depression, RLS. Patient minimally ambulatory at baseline, mostly uses wheelchair. * Plan for non-surgical treatment at this time. * Outpatient regimen is premixed basal/prandial insulin of NovoLog 70/30 mix insulin. * Pre-mixed insulin is difficult to titrate since it is already in a fixed distribution of basal:prandial insulin. Continuing pre-mixed insulin for admission typically lead to hypoglycemia d/t changing PO status but rapid acting insulin is unable to be held. * Patient started on basal bolus insulin last night on admission, blood sugars at goal, continue to follow and adjust to goal blood sugar. PLAN FOR INPATIENT GLYCEMIC CONTROL: * Basal insulin * Lantus 30 units SQ BID * Bolus insulin * NovoLog per scale ACHS or Q6hrs while NPO * Goal Range: Low 110 mg/dL - High 140 mg/dL * Correction Factor: 15 mg/dL/unit * Nutritional / Prandial insulin per carb ratio of 1 unit per 2 grams CHO consumed
[2023-05-21] MEDS: GABAPENTIN 600 MG TAB PO SCH (20:29)
[2023-05-21] MEDS: rOPINIRole HCL 0.25 MG TABLET PO SCH (20:29)
[2023-05-21] MEDS: MIRTAZAPINE TAB 15 MG TAB PO SCH (20:30)
[2023-05-22] MEDS: HYDROmorphone INJ 0.5 MG/0.5 ML SYR IV PRN ×3 (00:27→20:52)
[2023-05-22] MEDS: HEPARIN SOD 5,000 UNIT/0.5 ML VIAL SQ SCH ×3 (05:54→20:50)
[2023-05-22] MEDS: ACETAMINOPHEN 500 MG TAB PO SCH ×4 (05:55→23:23)
[2023-05-22] MEDS: LEVOTHYROXINE SODIUM 50 MCG TABLET PO SCH (05:55)
[2023-05-22 08:06] LABS: BUN Creatinine Ratio 10.8 (10-20); Calcium 8.5 mg/dl (8.6-10.3); Est GFR (African American) 6.7 ml/min; Est GFR (Non-African American) 5.8 ml/min; Potassium 4.5 mmol/L (3.5-5.1)
[2023-05-22] MEDS: ASPIRIN 81 MG ECTAB PO SCH (08:50)
[2023-05-22] MEDS: SEVELAMER HCL 800 MG TABLET PO SCH ×3 (08:50→17:04)
[2023-05-22] MEDS: CHOLECALCIFEROL 5,000 UNITS 125 MCG TAB PO SCH (08:50)
[2023-05-22] MEDS: amLODIPine BESYLATE 5 MG TAB PO SCH (08:50)
[2023-05-22] MEDS: ISOSORBIDE MONO EXTENDED REL 30 MG TABCR PO SCH (08:51)
[2023-05-22] MEDS: BUMETANIDE 1 MG TAB PO SCH ×2 (08:51→17:04)
[2023-05-22] MEDS: METOPROLOL SUCC 50MG EXT REL TAB PO SCH (08:51)
[2023-05-22] MEDS: GABAPENTIN 300 MG CAP PO SCH (08:51)
[2023-05-22] MEDS: PANTOprazole 40 MG TAB PO SCH (08:52)
[2023-05-22] MEDS: oxyBUTYnin chloride 5 MG TAB PO SCH (08:52)
[2023-05-22] MEDS: LANTUS PER UNIT CHARGE SQ SCH ×2 (08:59→21:03)
[2023-05-22] MEDS: INSULIN ASPART PER UNIT CHARGE SC SCH ×4 (08:59→21:04)
[2023-05-22] MEDS: DULoxetine HCL 20 MG CAP PO SCH (09:01)
[2023-05-22] MEDS: ATORVASTATIN 40 MG TAB PO SCH (09:01)
[2023-05-22] MEDS: CLOPIDOGREL BISULFATE 75 MG TAB PO SCH (09:02)
[2023-05-22] MEDS: DOCUSATE SODIUM 100 MG CAP PO SCH ×2 (09:09→20:52)
--- NOTE | 2023-05-22 09:33 | Orthopedic Progress Note ---
Date of Service May 22, 2023 Assessment & Plan (1) Intertrochanteric fracture of left femur: Plan: Patient will continue with nonweightbearing on the left lower extremity with a walker and assistance Ice to affected area prn Physical therapy and Occupational Therapy daily. DVT prophylaxis per the primary team. Case management for discharge needs. Recommend rehab or nursing facility due to maintain safety Orthopedics will continue to follow her while she is an inpatient. Patient is scheduled 06/18 in our outpatient office and will have repeat x-rays of her left hip to be done at that time. Present on Admission?: Yes Admission and Anticipated Discharge Date Admission Date: May 18, 2023 Subjective Patient is a 72-year-old female who is being followed for a left intertrochanteric fracture nonoperative. She was seen bedside this AM. Nursing was present during the initial part of her visit. She states she is having pain that is 10/10. She states she is only having that pain if she is trying to reposition herself or if the leg gets moved. She feels that the pain medication is helping. She denies any calf pain. She does report some tingling in the left lower extremity. She denies any fever, chills, chest pain or shortness of breath. She offers no concerns. Review of Systems Review of Systems: Please refer to HPI Physical Exam Physical Exam: General: Patient is alert and oriented x3 does not appear to be in any distress. Musculoskeletal/integumentary:. Negative for any open areas over left hip. There are dressings on bilateral heels. She is able to actively dorsiflex and plantarflex left ankle and wiggle toes without report of pain. Her left lower extremity is externally rotated and shortened compared to the right. She is not able to actively flex the knee or hip. She is unable to tolerate any motion of the left lower extremity. Her calf is soft and nontender. Sensation is intact over left lower extremity with the exception of her left foot which per patient this is baseline. Results & Data Vital Signs (Past 12 Hours) Vital Signs Temp Pulse Pulse Resp BP Pulse Ox O2 Del Method 05/22/23 07:49 36.3 C L 87 14 05/22/23 07:49 36.3 C L 87 14 150/75 H 96 Room Air 05/22/23 05:58 91 H 05/22/23 03:09 36.4 C L 83 16 155/78 H 96 Room Air 05/22/23 00:00 36.6 C 75 18 126/75 94 Room Air 05/21/23 21:59 72 Laboratory Results 05/22/23 05/22/23 05/22/23 Range/Units 08:15 08:09 06:13 Sodium 128 L (136-145) mmol/L Potassium 4.5 (3.5-5.1) mmol/L Chloride 88 L (98-107) mmol/L Carbon Dioxide 22 (21-32) mmol/L Anion Gap 18 H (3-11) BUN 71 H (6-23) mg/dl Creatinine 6.58 H* (0.6-1.2) mg/dl Est Cr Clr Drug Dosing 9.0 ml/min Est GFR ( Amer) 6.7 ml/min Est GFR (Non-Af Amer) 5.8 ml/min BUN/Creatinine Ratio 10.8 (10-20) Glucose 318 H* (70-99(Fasting)) mg/dl POC Glucose 294 H 320 H* (70-99) mg/dl Calcium 8.5 L (8.6-10.3) mg/dl Hep Bs Antigen Hep Bs Ag Confirmation Hep Bs Antibody, Quant 05/22/23 05/21/23 05/21/23 Range/Units 06:13 20:22 16:36 Sodium (136-145) mmol/L Potassium (3.5-5.1) mmol/L Chloride (98-107) mmol/L Carbon Dioxide (21-32) mmol/L Anion Gap (3-11) BUN (6-23) mg/dl Creatinine (0.6-1.2) mg/dl Est Cr Clr Drug Dosing ml/min Est GFR ( Amer) ml/min Est GFR (Non-Af Amer) ml/min BUN/Creatinine Ratio (10-20) Glucose (70-99(Fasting)) mg/dl POC Glucose 253 H 180 H (70-99) mg/dl Calcium (8.6-10.3) mg/dl Hep Bs Antigen Pending Hep Bs Ag Confirmation Pending Hep Bs Antibody, Quant Pending 05/21/23 05/21/23 05/21/23 Range/Units 11:26 11:24 11:22 Sodium (136-145) mmol/L Potassium (3.5-5.1) mmol/L Chloride (98-107) mmol/L Carbon Dioxide (21-32) mmol/L Anion Gap (3-11) BUN (6-23) mg/dl Creatinine (0.6-1.2) mg/dl Est Cr Clr Drug Dosing ml/min Est GFR ( Amer) ml/min Est GFR (Non-Af Amer) ml/min BUN/Creatinine Ratio (10-20) Glucose (70-99(Fasting)) mg/dl POC Glucose 300 H 301 H* 308 H* (70-99) mg/dl Calcium (8.6-10.3) mg/dl Hep Bs Antigen Hep Bs Ag Confirmation Hep Bs Antibody, Quant
--- NOTE | 2023-05-22 12:18 | Pharmacy Report ---
Pharmacy Glycemic Short Note 2 - Date of Service May 22, 2023 - Glycemic Short BSG Results (Last 24 hours): 05/21/23 05/21/23 05/22/23 16:36 20:22 06:13 Glucose 318 H* POC Glucose 180 H 253 H 05/22/23 05/22/23 05/22/23 08:09 08:15 12:02 Glucose POC Glucose 320 H* 294 H 284 H OUTPATIENT ANTIDIABETIC REGIMEN: * Novolog 70/30 66 units AM, 56 units PM * A1c = 8.9% * However, this result is likely somewhat unreliable in ESRD patients d/t interactions between the A1c analyzing technique and high levels of urea in ESRD, reduced RBC life span, iron deficiency anemia, and EPO administration. HbA1c > 7.5% in ESRD patient may overestimate the extent of hyperglycemia in ESRD patients. ASSESSMENT: 05/22/23 * Patient received total of 141 units of insulin yesterday, of which 60 units were basal insulin * Fasting BSG trending upward 294 mg/dL - will further titrate basal ~30% this AM * Tightened CF/CR this AM also as BSGs in 200-300s yesterday. Lunch BSG remains unchanged, will continue same parameters for now 05/21/23 * Patient's BSGs yesterday were [phone]- patient received 123 units of insulin (60 units of basal and 63 units of bolus). Compared to 05/19, the patient's insulin doubled (66 units total vs 123 units total). * Today's BSGs are 269-300 mg/dL. Will continue Lantus 30 units SQ BID for one more day as yesterday was the first day insulin regimen similar to home regimen was achieved. * Loosened CF to prevent overcorrection but tightened CR to 2. CR was 4 yesterday. Monitor. BACKGROUND * 72-year-old female admitted with intertrochanteric fracture of left femur d/t fall out of wheelchair, PMH ESRD on PD, DM, HTN, HLD, stroke, hypothyroidism, GERD, depression, RLS. Patient minimally ambulatory at baseline, mostly uses wheelchair. * Plan for non-surgical treatment at this time. * Outpatient regimen is premixed basal/prandial insulin of NovoLog 70/30 mix insulin. * Pre-mixed insulin is difficult to titrate since it is already in a fixed distribution of basal:prandial insulin. Continuing pre-mixed insulin for admission typically lead to hypoglycemia d/t changing PO status but rapid acting insulin is unable to be held. * Patient started on basal bolus insulin last night on admission, blood sugars at goal, continue to follow and adjust to goal blood sugar. PLAN FOR INPATIENT GLYCEMIC CONTROL: * Basal insulin - increase * Lantus 40 units SQ BID * Bolus insulin * NovoLog per scale ACHS or Q6hrs while NPO * Goal Range: Low 110 mg/dL - High 140 mg/dL * Correction Factor: 10 mg/dL/unit * Nutritional / Prandial insulin per carb ratio of 1 unit per 1.5 grams CHO consumed
--- NOTE | 2023-05-22 12:33 | Nephrology Progress Note ---
Date of Service May 22, 2023 Assessment & Plan (1) ESRD (end stage renal disease) on dialysis: Plan: Her OP rx is 4 x 2L exchanges over 8 hours. - Sodium has been dropping - Continue on routine PD every evening, Prescription has been changed to all 2.5 D , with addition of another 2l and 5 cycles. Her volume status and BP are acceptable; potassium, calcium other chemistries at goal. not currently anemic. >will have daily exit site care w/ dialysis nurse -Extensive discussion with patient today about need to convert to hemodialysis given patient would not be able to do PD in the [facility]/rehab. She is agreeable. Request has been placed for vascular surgery to place a permacatheter. Once permacatheter is placed, patient will convert to hemod ialysis. We will leave the PD catheter in situ. It will require weekly flushing at the rehab by family members. (2) Intertrochanteric fracture of left femur: Plan: [facility] is for conservative management, OT/PT Before discharge, Admission and Anticipated Discharge Date Admission Date: May 18, 2023 Subjective Seen for ESRD on PD. No shortness of breath. Main complaint is right hip pain. Review of Systems Review of Systems: All other systems were reviewed and negative except as noted in HPI Physical Exam Physical Exam: General exam: Appears comfortable, no acute distress HEENT: Pupils are equal and reactive to light Neck: No JVD, neck is supple trachea is midline Respiratory system: Clear breath sounds bilaterally. Gastrointestinal: Abdomen is soft, non distended, non tender, bowel sounds are present CVS: Regular rate and rhythm. No murmurs, rubs or gallops Musculoskeletal: No joint or muscle tenderness Extremities: No edema present. Right hip tenderness Neuro: Oriented, no tremors, no focal neurological deficits Skin: No rashes Results & Data Vital Signs (Past 12 Hours) Vital Signs Temp Pulse Pulse Resp BP Pulse Ox O2 Del Method 05/22/23 11:59 36.3 C L 72 16 172/90 H 97 Room Air 05/22/23 11:05 36.4 C L 80 16 159/77 H 98 Room Air 05/22/23 07:49 36.3 C L 87 14 05/22/23 07:49 36.3 C L 87 14 150/75 H 96 Room Air 05/22/23 05:58 91 H 05/22/23 03:09 36.4 C L 83 16 155/78 H 96 Room Air Laboratory Results 05/22/23 06:13
--- NOTE | 2023-05-22 12:36 | Hospitalist Progress Note ---
Date of Service May 22, 2023 Assessment & Plan (1) Fall: (2) Intertrochanteric fracture of left femur: Plan: Patient is 72-year-old female with PMH ESRD on PD, insulin-dependent diabetes, HTN, HLD, stroke, hypothyroidism, GERD, depression, RLS presented to ER with complaint of falling out of wheelchair and left hip pain. Minimally ambulatory at baseline, mostly uses wheelchair Hip x-ray: Mildly displaced left femoral intertrochanteric fracture. Orthopedics evaluated patient and feels patient high surgical risk and with current minimal baseline ambulation likely will not be surgical candidate. Continue pain control Continue PT OT; will need rehab Pain control with scheduled Tylenol and Dilaudid (3) End stage renal disease: Plan: ESRD on PD Continue renal meds, Bumex As per nephrology, patient to be transition to hemodialysis for placement at rehab. Vascular surgery has been consulted. Timing of permacath placement depending on vascular surgery. (4) DM type 2 (diabetes mellitus, type 2): Plan: Insulin-dependent diabetes A1c: 10 on 12/25/2022 Hold home NovoLog 70/30 Basal bolus insulin per protocol Glycemic pharmacy consult A1c of 8.4% (5) History of stroke: Plan: Continue aspirin, Plavix, atorvastatin. (6) Hypertension: Plan: Continue amlodipine, metoprolol succinate, isosorbide (7) Hyperlipidemia: Plan: Continue atorvastatin (8) Hypothyroid: Plan: Continue levothyroxine (9) GERD (gastroesophageal reflux disease): Plan: Continue PPI (10) Depression: Plan: Continue home meds DVT Prophylaxis heparin DNR/DNI. Please note the above document was generated using voice recognition software. It may contain grammatical, syntax or spelling errors. Any formal questions or concerns about the content, text or information contained within the body of this dictation should be directly addressed to the provider for clarification Admission and Anticipated Discharge Date Admission Date: May 18, 2023 Subjective Patient seen and examined at bedside. She is sitting up on the bed comfortably. Not in any distress. Reports that she is having regular bowel movements. Review of Systems Review of Systems: All systems reviewed & are unremarkable except as noted in Subjective Physical Exam Physical Exam: Constitutional: Alert orient x3; not in distress. Hard of hearing. Respiratory: Bilateral vesicular breath sound Cardiovascular: RRR, no murmur, no edema Vessels: no JVD or carotid bruit Chest: normal inspection of chest Abdomen: Soft, nontender. Peritoneal dialysis catheter in place. Musculoskeletal: no cyanosis or clubbing, left leg externally rotated, ROM severely limited due to pain. No overlying bruise on the hip. Skin: no rashes, warm and dry normal turgor Neurologic: PERRL, EOMI, accommodation nl, no face palsy, no dysarthria CN's II-XI intact bilaterally and moves all extremities Psychiatric: A+Ox3, euthymic affect Results & Data Results & Data Vital Signs (Past 12 Hours) Vital Signs Temp Pulse Pulse Resp BP Pulse Ox O2 Del Method 05/22/23 11:59 36.3 C L 72 16 172/90 H 97 Room Air 05/22/23 11:05 36.4 C L 80 16 159/77 H 98 Room Air 05/22/23 07:49 36.3 C L 87 14 05/22/23 07:49 36.3 C L 87 14 150/75 H 96 Room Air 05/22/23 05:58 91 H 05/22/23 03:09 36.4 C L 83 16 155/78 H 96 Room Air Laboratory Results Laboratory Results WBC 12.01 K/ul (4.8-10.8) H 05/20/23 06:08 RBC 2.96 M/uL (4.20-5.40) L 05/20/23 06:08 Hgb 9.1 g/dl (12.0-16.0) L 05/20/23 06:08 Hct 27.0 % (37.0-47.0) L 05/20/23 06:08 MCV 91.2 fL (80.0-100.0) 05/20/23 06:08 MCH 30.7 pg (25.0-34.0) 05/20/23 06:08 MCHC 33.7 g/dL (32.0-36.0) 05/20/23 06:08 RDW Std Deviation 42.1 fL (36.4-46.3) 05/20/23 06:08 RDW Coeff of Beth[place] 12.6 % (11.5-14.5) 05/20/23 06:08 Plt Count 209 K/uL (130-400) 05/20/23 06:08 MPV 10.6 fL (9.4-12.4) 05/20/23 06:08 Immature Gran % (Auto) 1.2 % 05/20/23 06:08 Neut % (Auto) 77.6 % 05/20/23 06:08 Lymph % (Auto) 10.2 % 05/20/23 06:08 Butler % (Auto) 9.4 % 05/20/23 06:08 Eos % (Auto) 0.7 % 05/20/23 06:08 Baso % (Auto) 0.9 % 05/20/23 06:08 Neut # (Auto) 9.30 K/uL (1.40-6.50) H 05/20/23 06:08 Lymph # (Auto) 1.23 K/uL (1.20-3.40) 05/20/23 06:08 Butler # (Auto) 1.13 K/uL (0.11-0.59) H 05/20/23 06:08 Eos # (Auto) 0.09 K/uL (0.00-0.50) 05/20/23 06:08 Baso # (Auto) 0.11 K/uL (0.00-0.20) 05/20/23 06:08 Immature Gran # (Auto) 0.15 K/uL (0.01-0.20) 05/20/23 06:08 Absolute Nucleated RBC 0.02 K/uL (0.00-0.12) 05/20/23 06:08 Nucleated RBC % (auto) 0.2 % 05/20/23 06:08 PT 10.8 Seconds (9.0-12.0) 05/18/23 13:53 INR 1.0 (0.9-1.1) 05/18/23 13:53 APTT 24.8 Seconds (21.0-31.0) 05/18/23 13:53 PTT Ratio 0.9 05/18/23 13:53 Sodium 128 mmol/L (136-145) L 05/22/23 06:13 Potassium 4.5 mmol/L (3.5-5.1) 05/22/23 06:13 Chloride 88 mmol/L (98-107) L 05/22/23 06:13 Carbon Dioxide 22 mmol/L (21-32) 05/22/23 06:13 Anion Gap 18 (3-11) H 05/22/23 06:13 BUN 71 mg/dl (6-23) H 05/22/23 06:13 Creatinine 6.58 mg/dl (0.6-1.2) H* 05/22/23 06:13 Est Cr Clr Drug Dosing 9.0 ml/min 05/22/23 06:13 Est GFR ( Amer) 6.7 ml/min 05/22/23 06:13 Est GFR (Non-Af Amer) 5.8 ml/min 05/22/23 06:13 BUN/Creatinine Ratio 10.8 (10-20) 05/22/23 06:13 Glucose 318 mg/dl (70-99(Fasting)) H* 05/22/23 06:13 POC Glucose 284 mg/dl (70-99) H 05/22/23 12:02 Estimat Average Glucose 194 mg/dl 05/18/23 13:53 Hemoglobin A1c 8.4 % (4.5-5.6) H 05/18/23 13:53 Calcium 8.5 mg/dl (8.6-10.3) L 05/22/23 06:13 Phosphorus 6.7 mg/dl (2.5-4.9) H 05/19/23 06:13 Magnesium 1.7 mg/dl (1.7-2.4) 05/19/23 06:13 Total Bilirubin 0.3 mg/dl (0.2-1.0) 05/18/23 13:53 AST 18 U/L (13-39) 05/18/23 13:53 ALT 14 U/L (7-52) 05/18/23 13:53 Alkaline Phosphatase 75 U/L (34-104) 05/18/23 13:53 Total Protein 7.2 gm/dl (6.0-8.3) 05/18/23 13:53 Albumin 4.0 gm/dl (3.4-5.0) 05/18/23 13:53 Globulin 3.2 gm/dl (2.5-4.0) 05/18/23 13:53 Albumin/Globulin Ratio 1.3 (0.9-2) 05/18/23 13:53 Nasal Screen MRSA (PCR) Negative (Negative) 05/18/23 23:14 SARS-CoV-2, RNA, NAAT NEGATIVE (NEGATIVE) 05/18/23 14:50 Blood Type A Positive 05/18/23 18:05 Antibody Screen NEGATIVE 05/18/23 18:05 Impressions Hip/Pelvis X-Ray 05/18/23 13:57 XR hip LT 2V w pelvis CLINICAL HISTORY: fall, pain COMPARISON STUDY: None. FINDINGS: There is a mildly displaced and comminuted intertrochanteric fracture of the proximal left femur. The fracture extends into the proximal shaft of the left femur. No dislocation. No additional fractures identified within the pelvis or right hip. A peritoneal catheter seen within the deep pelvis. IMPRESSION: Mildly displaced left femoral intertrochanteric fracture as described above. ACT 112: Negative or not required by law. Electronically signed by: Bryan Freeman M.D. 05/18/2023 3:45 PM Chest X-Ray 05/18/23 20:03 XR chest 1V portable CLINICAL HISTORY: pre-op COMPARISON STUDY: Chest radiograph October 12, 2022. FINDINGS: Patient is rotated. This likely accounts for mediastinal widening. Cardiac size is normal. There is no evidence for pulmonary edema. No consolidation to suggest pneumonia. No pneumothorax or pleural effusion. IMPRESSION: No acute cardiopulmonary findings. Rotated study. ACT 112: Negative or not required by law. Electronically signed by: Pacheco Culver M.D. 05/19/2023 6:53 AM
[2023-05-22] MEDS: rOPINIRole HCL 0.25 MG TABLET PO SCH (20:49)
[2023-05-22] MEDS: MIRTAZAPINE TAB 15 MG TAB PO SCH (20:49)
[2023-05-22] MEDS: GABAPENTIN 600 MG TAB PO SCH (20:50)
[2023-05-23] MEDS: HEPARIN SOD 5,000 UNIT/0.5 ML VIAL SQ SCH ×3 (05:23→21:17)
[2023-05-23] MEDS: ACETAMINOPHEN 500 MG TAB PO SCH ×4 (05:23→21:17)
[2023-05-23] MEDS: LEVOTHYROXINE SODIUM 50 MCG TABLET PO SCH (05:27)
[2023-05-23 08:21] LABS: BUN Creatinine Ratio 12.8 (10-20); Calcium 8.7 mg/dl (8.6-10.3); Creatinine Clr Calc Pharmacy 9.5 ml/min; Est GFR (African American) 7.3 ml/min; Est GFR (Non-African American) 6.3 ml/min; Potassium 3.8 mmol/L (3.5-5.1)
[2023-05-23] MEDS: CLOPIDOGREL BISULFATE 75 MG TAB PO SCH (09:14)
[2023-05-23] MEDS: BUMETANIDE 1 MG TAB PO SCH ×2 (09:14→16:57)
[2023-05-23] MEDS: GABAPENTIN 300 MG CAP PO SCH (09:14)
[2023-05-23] MEDS: ATORVASTATIN 40 MG TAB PO SCH (09:14)
[2023-05-23] MEDS: SEVELAMER HCL 800 MG TABLET PO SCH ×3 (09:14→16:57)
[2023-05-23] MEDS: METOPROLOL SUCC 50MG EXT REL TAB PO SCH (09:15)
[2023-05-23] MEDS: DULoxetine HCL 20 MG CAP PO SCH (09:15)
[2023-05-23] MEDS: ASPIRIN 81 MG ECTAB PO SCH (09:15)
[2023-05-23] MEDS: CHOLECALCIFEROL 5,000 UNITS 125 MCG TAB PO SCH (09:15)
[2023-05-23] MEDS: oxyBUTYnin chloride 5 MG TAB PO SCH (09:15)
[2023-05-23] MEDS: PANTOprazole 40 MG TAB PO SCH (09:15)
[2023-05-23] MEDS: amLODIPine BESYLATE 5 MG TAB PO SCH (09:15)
[2023-05-23] MEDS: INSULIN ASPART PER UNIT CHARGE SC SCH ×4 (09:27→21:16)
[2023-05-23] MEDS: DOCUSATE SODIUM 100 MG CAP PO SCH ×2 (09:29→21:23)
[2023-05-23] MEDS: HYDROmorphone INJ 0.5 MG/0.5 ML SYR IV PRN ×3 (09:29→18:07)
[2023-05-23] MEDS: ISOSORBIDE MONO EXTENDED REL 30 MG TABCR PO SCH (09:29)
--- NOTE | 2023-05-23 09:32 | Orthopedic Progress Note ---
Date of Service May 23, 2023 Assessment & Plan (1) Intertrochanteric fracture of left femur: Plan: Patient will continue with nonweightbearing on the left lower extremity with a walker and assistance Ice to affected area prn Physical therapy and Occupational Therapy daily. DVT prophylaxis per the primary team. Case management for discharge needs. Recommend rehab or nursing facility due to maintain safety Patient is scheduled 06/18 in our outpatient office and will have repeat x-rays of her left hip to be done at that time. Admission and Anticipated Discharge Date Admission Date: May 18, 2023 Subjective Patient was seen and examined bedside. She says that she is overall doing well. She is sore. She has pain throughout her leg. Denies any numbness or tingling Out of the ordinary. She say PT did not do good yesterday she sat on the edge of the bed but that's all she could tolerate. She has no other questions or concerns today. Physical Exam Physical Exam: Patients leg externally rotated. Tender over hip, thigh and calf. She can wiggle all of her toes and ankle. Unable to flex knee or tolerate much movement of her leg. Thigh and calf soft and compressible. Skin warm. No sensation to light touch in her foot which she reports is her baseline. Results & Data Vital Signs (Past 12 Hours) Vital Signs Temp Pulse Pulse Resp BP Pulse Ox O2 Del Method 05/23/23 07:57 36.4 C L 77 16 05/23/23 07:57 36.4 C L 77 16 166/75 H 100 Room Air 05/23/23 03:00 35.7 C L 72 18 137/78 96 Room Air 05/22/23 22:06 76 05/22/23 22:00 35.8 C L 71 20 139/75 97 Room Air
[2023-05-23] MEDS: LANTUS PER UNIT CHARGE SQ SCH ×2 (09:34→21:16)
--- NOTE | 2023-05-23 10:01 | Dialysis Progress Note ---
Date of Service May 23, 2023 Assessment & Plan Admission and Anticipated Discharge Date Admission Date: May 18, 2023 Subjective [facility], [id number] Nephrology Progress Note Signed Patient:ANNETTE ARRIETA Admit Date:05/18/23 MR#:[id number] Att Phy:Tien Glez MD Acct ID:[id number] Anabella Phy:Susan Guidry DO Date:1950 Fam Phy: Age:72 Location:2N Sex:F Room/Bed:N279-1 cc: ~ *NOTICE TO RECEIVING CONSTITUTION PARTY/AGENCY This information is strictly Confidential and protected under [place] law. [place] law prohibits you from making any further disclosure of this information unless further disclosure is expressly permitted by the written consent of the person to whom it pertains or is authorized by law. A general authorization for the release of medical or other information is not sufficient for this purpose. Hospital accepts no responsibility if the information is made available to any other person, INCLUDI NG THE PATIENT. Date of Service May 22, 2023 Assessment & Plan (1) ESRD (end stage renal disease) on dialysis: Plan: Her OP rx is 4 x 2L exchanges over 8 hours. - Sodium had been dropping but now last 2 days slowly rising. - Continue on routine PD every evening. for tonight same rx as last night Her volume status and BP are acceptable; potassium, calcium other chemistries at goal. not currently anemic. will have daily exit site care w/ dialysis nurse She has agreed to convert to hemodialysis given patient would not be able to do PD in the [facility]/rehab.Request has been placed for vascular surgery to place a permacatheter. Once permacatheter is placed, patient will convert to he modialysis. We will leave the PD catheter in situ. It will require weekly flushing at the rehab by family members. also she is starting to think she might be in SNF care home and she wont mind this as she feels she is getting too much of burden at home. Advised her to think through, Discuss with family and also social media project manager and window caser when she is at rehab/SNF (2) Intertrochanteric fracture of left femur: Plan: Patient is for conservative management, OT/PT Before discharge, Subjective Seen for ESRD on PD.net UF overnight 1250 ml. No shortness of breath. Main complaint is right hip pain. Review of Systems Review of Systems: All other systems were reviewed and negative except as noted in HPI Physical Exam Physical Exam: General exam: Appears comfortable, no acute distress HEENT: Pupils are equal and reactive to light Neck: No JVD, neck is supple trachea is midline Respiratory system: Clear breath sounds bilaterally. Gastrointestinal: Abdomen is soft, non distended, non tender, bowel sounds are present CVS: Regular rate and rhythm. No murmurs, rubs or gallops Musculoskeletal: No joint or muscle tenderness Extremities: No edema present. Right hip tenderness Neuro: Oriented, no tremors, no focal neurological deficits Skin: No rashes Results & Data Vital Signs (Past 12 Hours) Vital Signs Temp Pulse Pulse Resp BP Pulse Ox O2 Del Method 05/23/23 07:30 71 05/23/23 07:57 36.4 C L 77 16 05/23/23 07:57 36.4 C L 77 16 166/75 H 100 Room Air 05/23/23 03:00 35.7 C L 72 18 137/78 96 Room Air 05/22/23 22:06 76 05/22/23 22:00 35.8 C L 71 20 139/75 97 Room Air
[2023-05-23 11:47] LABS: HBSAG NON-REACTIVE (NON-REACTIVE); Hepatitis B Surface Ab, Quant >1000 mIU/mL (> OR = 10)
--- NOTE | 2023-05-23 12:47 | Consultation ---
Date of Consultation May 23, 2023 Assessment & Plan (1) End stage renal disease: Pt with ESRD requiring dialysis. She has been on CAPD for about 1 year. Her CAPD catheter is not clearing well and she will require HD at rehab. Planning on permcath insertion SUNDAY in [place] by Dr Womack. Procedure, risks, benefits, and alternatives discussed with pt by myself at Dr Womack's request. Pt expresses understanding and agreement to proceed. Advised pt that if she requires HD permanently, we would be happy to consider AVF creation in future and remove her CAPD catheter if no longer needed. History of Present Illness Reason for Consultation: ESRD, need permcath Attending Physician: Ravinder Urbina MD History of Present Illness 72 yo f with multiple medical problems, including ESRD on PD, HTN, DMII, GERD, neuropathy, hyperlipidemia, lumbar radiculopathy, Arthritis, depression, skin cancer, hypothyroidism, TIA, admitted with L femur fracture, seen in consultation today for permcath insertion. Pt has been on CAPD for about 1 year. Per nephrology, the catheter is not clearing well. Additionally, she cannot do PD in the rehab center she will be admitted to while recovering from her l femur fracture. Pt states she never had HD before. Denies MANNING, fever, chest pain, SOB, abd pain, N/V, rest pain, claudication, other complaints. Prior to admission, pt was able to ambulate short distances with her walker. Allergies Allergy/AdvReac Type Severity Reaction Status Date / Time meperidine Allergy Intermediate hypotension-passed Verified 10/12/22 23:08 out Home Medications Medication Instructions Recorded Confirmed Type bumetanide 2 mg tablet 4 mg PO BID 04/20/22 05/18/23 History cholecalciferol (vitamin D3) 125 125 mcg PO DAILY 04/20/22 05/18/23 History mcg (5,000 unit) tablet (Vitamin D3) amlodipine 10 mg tablet 10 mg PO DAILY 07/23/22 05/18/23 History atorvastatin 40 mg tablet 40 mg PO DAILY 07/23/22 05/18/23 History docusate sodium 100 mg capsule 100 mg PO BID 07/23/22 05/18/23 History food supplemt, lactose-reduced 1 ea PO BID 07/23/22 05/18/23 History (Ensure oral liquid) gabapentin 300 mg capsule 300 mg PO QAM 07/23/22 05/18/23 History gabapentin 300 mg capsule 600 mg PO QPM 07/23/22 05/18/23 History insulin aspar prot-insulin aspart 56 unit subcut QPM 07/23/22 05/18/23 History 100 unit/mL (70-30) subcutaneous pen (Novolog Mix 70-30FlexPen U-100) insulin aspar prot-insulin aspart 66 unit subcut QAM 07/23/22 05/18/23 History 100 unit/mL (70-30) subcutaneous pen (Novolog Mix 70-30FlexPen U-100) isosorbide mononitrate 30 mg 30 mg PO QAM 07/23/22 05/18/23 History tablet,extended release 24 hr levothyroxine 50 mcg tablet 50 mcg PO DAILY 07/23/22 05/18/23 History melatonin 10 mg tablet 10 mg PO HS PRN Sleep 07/23/22 05/18/23 History metoprolol succinate 50 mg 50 mg PO DAILY 07/23/22 05/18/23 History tablet,extended release 24 hr mirtazapine 15 mg tablet 15 mg PO HS 07/23/22 05/18/23 History tramadol 50 mg tablet 50 mg PO Q4 PRN Pain 07/23/22 05/18/23 History clopidogrel 75 mg tablet 75 mg PO QAM #30 tabs 07/25/22 05/18/23 Rx pantoprazole 40 mg tablet,delayed 40 mg PO DAILY #30 tabs 07/25/22 05/18/23 Rx release gentamicin 0.1 % topical cream 1 applic topical DAILY 10/12/22 05/18/23 History polyethylene glycol 3350 17 gram 17 g PO BID PRN Constipation 10/12/22 05/18/23 History oral powder packet (Miralax) aspirin 81 mg tablet,delayed 81 mg PO DAILY 05/18/23 05/18/23 History release duloxetine 20 mg capsule,delayed 20 mg PO DAILY 05/18/23 05/18/23 History release oxybutynin chloride 5 mg tablet 2.5 mg PO DAILY 05/18/23 05/18/23 History ropinirole 0.25 mg tablet 0.25 mg PO HS 05/18/23 05/18/23 History sevelamer carbonate 800 mg tablet 800 mg PO TID 05/18/23 05/18/23 History Patient History Medical History Ambulatory dysfunction Diabetic neuropathy DM type 2 (diabetes mellitus, type 2) Dyspnea on exertion Encounter for pre-operative examination ESRD (end stage renal disease) on dialysis peritoneal dialysis patient Exertional chest pain GERD (gastroesophageal reflux disease) Hyperlipidemia Hypertension Lumbar radiculopathy Peritoneal dialysis catheter in place TIA (transient ischemic attack) Surgical History 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 Family History Other Cancer Social History Smoking Status: Never smoker Hx Alcohol Use: No Hx Substance Use: No Preferred Language: Mongolian Communication Ability: Effective Medical Collector Required: No Beliefs That Will Affect Care: None marital status: / Current Living Situation: Family Current Living Situation Comment: lives with son, has to go up 14 steps to get into house, then 1 floor Other Information That Helps Us Care for You: No Feels Safe at Home: Yes Safety Concerns: Feels Safe At This Time Assistive Devices: Bedside Commode, Walker and Wheelchair Review of Systems Review of Systems: All systems reviewed & are unremarkable except as noted in HPI & below Physical Exam Constitutional: WD/WN, vitals as above + obese, cooperative and comfortable; not in distress ENMT: Ears: + hearing impairment (mild) Neck: trachea midline Respiratory: normal respiratory effort, lungs clear to auscultation Auscultation: + diminished lung sounds Cardiovascular: Rate/Rhythm: regular rate and regular rhythm Vessels: femoral pulses present, posterior tibial pulses present, dorsalis pedis pulses present and radial pulses present; + abnormal peripheral pulses Extremities: normal capillary refill; no edema Gastrointestinal (Abdomen): Inspection/Auscultation: abdomen normal to inspection and normal bowel sounds Percussion/Palpation: abdomen soft (CAPD catheter noted); abdomen nontender Musculoskeletal: no cyanosis or clubbing, extremities motor strength 5/5 (LLE immobilized d/t fracture) Skin: no rashes, warm and dry Neurologic: moves all extremities and awake; no focal motor deficits and not confused Psychiatric: A+Ox3, euthymic affect Results & Data Vital Signs (Past 12 Hours) Vital Signs Temp Pulse Pulse Resp BP Pulse Ox O2 Del Method 05/23/23 11:45 36.2 C L 75 16 154/74 H 100 Room Air 05/23/23 08:00 Room Air 05/23/23 07:30 71 05/23/23 07:57 36.4 C L 77 16 05/23/23 07:57 36.4 C L 77 16 166/75 H 100 Room Air 05/23/23 03:00 35.7 C L 72 18 137/78 96 Room Air
--- NOTE | 2023-05-23 17:06 | Hospitalist Progress Note ---
Date of Service May 23, 2023 delayed entry date of service noted above Assessment & Plan (1) Fall: Plan: (1) Fall: (2) Intertrochanteric fracture of left femur: Plan: Patient is 72-year-old female with PMH ESRD on PD, insulin-dependent diabetes, HTN, HLD, stroke, hypothyroidism, GERD, depression, RLS presented to ER with complaint of falling out of wheelchair and left hip pain. Minimally ambulatory at baseline, mostly uses wheelchair Hip x-ray: Mildly displaced left femoral intertrochanteric fracture. Orthopedics evaluated patient and feels patient high surgical risk and with current minimal baseline ambulation likely will not be surgical candidate. Continue pain control Continue PT OT; will need rehab Pain control with scheduled Tylenol and Dilaudid 05/23 stable overall continue pain management (3) End stage renal disease: Plan: ESRD on PD Continue renal meds, Bumex As per nephrology, patient to be transition to hemodialysis for placement at rehab. Vascular surgery has been consulted. Timing of permacath placement depending on vascular surgery. 05/23 Nephro managing PD Vasc Surgery consulted for HD cath placement (4) DM type 2 (diabetes mellitus, type 2): Plan: Insulin-dependent diabetes A1c: 10 on 12/25/2022 Hold home NovoLog 70/30 Basal bolus insulin per protocol Glycemic pharmacy consult A1c of 8.4% (5) History of stroke: Plan: Continue aspirin, Plavix, atorvastatin. (6) Hypertension: Plan: Continue amlodipine, metoprolol succinate, isosorbide (7) Hyperlipidemia: Plan: Continue atorvastatin (8) Hypothyroid: Plan: Continue levothyroxine (9) GERD (gastroesophageal reflux disease): Plan: Continue PPI (10) Depression: Plan: Continue home meds DVT Prophylaxis heparin DNR/DNI. Please note the above document was generated using voice recognition software. It may contain grammatical, syntax or spelling errors. Any formal questions or concerns about the content, text or information contained within the body of this dictation should be directly addressed to the provider for clarification Admission and Anticipated Discharge Date Admission Date: May 18, 2023 Subjective ff up for fall, hip fracture, etc seen resting in bed, comfortable states she feels ok overall having some L hip pain, but well controlled no chest pain, dyspnea, palpitations, dizziness no other symptoms Review of Systems Review of Systems: all noted and negative except for above Physical Exam Physical Exam: General- oriented x 3, not in distress, speaks in sentences with no effort or accessory muscle use Eyes- anicteric Neck- no JVD Lungs- clear breath sounds bilaterally, no rales or wheezing Heart- normal rate, regular rhythm; no murmurs Abdomen- normal bowel sounds, nondistended, soft, nontender Extremities- no pretibial edema, no calf tenderness Neuro- alert, oriented x 3; no gross focal neurologic deficits Skin- warm & dry Results & Data Results & Data Vital Signs (Past 12 Hours) Vital Signs Temp Pulse Pulse Resp BP Pulse Ox O2 Del Method 05/23/23 16:21 36.3 C L 73 16 127/67 98 Room Air 05/23/23 14:00 69 05/23/23 11:45 36.2 C L 75 16 154/74 H 100 Room Air 05/23/23 08:00 Room Air 05/23/23 07:30 71 05/23/23 07:57 36.4 C L 77 16 05/23/23 07:57 36.4 C L 77 16 166/75 H 100 Room Air all noted and reviewed including below
[2023-05-23] MEDS: GABAPENTIN 600 MG TAB PO SCH (21:18)
[2023-05-23] MEDS: rOPINIRole HCL 0.25 MG TABLET PO SCH (21:19)
[2023-05-23] MEDS: MIRTAZAPINE TAB 15 MG TAB PO SCH (21:20)
[2023-05-24] MEDS: LEVOTHYROXINE SODIUM 50 MCG TABLET PO SCH (05:19)
[2023-05-24] MEDS: HEPARIN SOD 5,000 UNIT/0.5 ML VIAL SQ SCH ×3 (05:19→22:38)
[2023-05-24] MEDS: ACETAMINOPHEN 500 MG TAB PO SCH ×4 (05:20→23:29)
[2023-05-24 05:29] LABS: BUN Creatinine Ratio 13.4 (10-20); Calcium 9.1 mg/dl (8.6-10.3); Creatinine Clr Calc Pharmacy 9.3 ml/min; Est GFR (African American) 7.1 ml/min; Est GFR (Non-African American) 6.1 ml/min; Potassium 4.1 mmol/L (3.5-5.1)
[2023-05-24] MEDS: SEVELAMER HCL 800 MG TABLET PO SCH ×3 (08:58→18:17)
[2023-05-24] MEDS: ISOSORBIDE MONO EXTENDED REL 30 MG TABCR PO SCH (08:58)
[2023-05-24] MEDS: CLOPIDOGREL BISULFATE 75 MG TAB PO SCH (08:58)
[2023-05-24] MEDS: CHOLECALCIFEROL 5,000 UNITS 125 MCG TAB PO SCH (08:58)
[2023-05-24] MEDS: METOPROLOL SUCC 50MG EXT REL TAB PO SCH (08:58)
[2023-05-24] MEDS: ASPIRIN 81 MG ECTAB PO SCH (08:58)
[2023-05-24] MEDS: DULoxetine HCL 20 MG CAP PO SCH (08:58)
[2023-05-24] MEDS: amLODIPine BESYLATE 5 MG TAB PO SCH (08:58)
[2023-05-24] MEDS: GABAPENTIN 300 MG CAP PO SCH (08:59)
[2023-05-24] MEDS: oxyBUTYnin chloride 5 MG TAB PO SCH (08:59)
[2023-05-24] MEDS: PANTOprazole 40 MG TAB PO SCH (08:59)
[2023-05-24] MEDS: ATORVASTATIN 40 MG TAB PO SCH (08:59)
[2023-05-24] MEDS: BUMETANIDE 1 MG TAB PO SCH ×2 (08:59→18:15)
[2023-05-24] MEDS: DOCUSATE SODIUM 100 MG CAP PO SCH ×2 (09:04→20:13)
[2023-05-24] MEDS: HYDROmorphone INJ 0.5 MG/0.5 ML SYR IV PRN ×4 (09:15→23:35)
[2023-05-24] MEDS: INSULIN ASPART PER UNIT CHARGE SC SCH ×4 (10:22→22:29)
[2023-05-24] MEDS ORDERED: ceFAZolin 2000MG 2,000 MG/15 ML SYR IV ONE (11:00)
--- NOTE | 2023-05-24 11:36 | Dialysis Progress Note ---
Date of Service May 24, 2023 Assessment & Plan Admission and Anticipated Discharge Date Admission Date: May 18, 2023 Subjective Assessment & Plan (1) ESRD (end stage renal disease) on dialysis: Plan: Her OP rx is 4 x 2L exchanges over 8 hours. - Sodium had been dropping but now last 2 days slowly rising. - Continue on routine PD every evening. for tonight same rx as last night Her volume status and BP are acceptable; potassium, calcium other chemistries at goal. not currently anemic. will have daily exit site care w/ dialysis nurse She has agreed to convert to hemodialysis given patient would not be able to do PD in the [facility]/rehab. Once permcath is placed tomorrow, patient will convert to hemodialysis. We will leave the PD catheter in situ. It will require weekly flushing at the rehab by family members. 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 Advised her to think through, Discuss with family and also social insurance specialist and case aide when she is at rehab/SNF. Decision about PD vs HD to be made after discharge by Dr Farias No PD tonight as she will be getting HD tomorrow (2) Intertrochanteric fracture of left femur: Plan: Patient is for conservative management, OT/PT Before discharge, Subjective Seen for ESRD on PD.net UF overnight 450 ml. There was some issuse and PD nurse was called at 1 AM. No shortness of breath.getting HD cath tomorrow. Main complaint is right hip pain. Review of Systems Review of Systems: All other systems were reviewed and negative except as noted in HPI Physical Exam Physical Exam: General exam: Appears comfortable, no acute distress HEENT: Pupils are equal and reactive to light Neck: No JVD, neck is supple trachea is midline Respiratory system: Clear breath sounds bilaterally. Gastrointestinal: Abdomen is soft, non distended, non tender, bowel sounds are present CVS: Regular rate and rhythm. No murmurs, rubs or gallops Musculoskeletal: No joint or muscle tenderness Extremities: No edema present. Right hip tenderness Neuro: Oriented, no tremors, no focal neurological deficits Skin: No rashes Results & Data Vital Signs (Past 12 Hours) Vital Signs Temp Pulse Pulse Resp BP BP Pulse Ox 05/24/23 11:20 36.6 C 85 19 132/67 97 05/24/23 07:45 36.5 C 75 17 127/82 94 05/24/23 03:00 36.8 C 76 18 128/75 96 05/24/23 00:00 75 O2 Del Method 05/24/23 11:20 Room Air 05/24/23 07:45 Room Air 05/24/23 03:00 Room Air 05/24/23 00:00
--- NOTE | 2023-05-24 13:54 | Pharmacy Report ---
Pharmacy Glycemic Short Note 2 - Date of Service May 24, 2023 - Glycemic Short BSG Results (Last 24 hours): 05/23/23 05/23/23 05/24/23 17:25 20:20 04:49 Glucose 103 H POC Glucose 103 H 190 H 05/24/23 12:13 Glucose POC Glucose 92 OUTPATIENT ANTIDIABETIC REGIMEN: * Novolog 70/30 66 units AM, 56 units PM * A1c = 8.9% * However, this result is likely somewhat unreliable in ESRD patients d/t interactions between the A1c analyzing technique and high levels of urea in ESRD, reduced RBC life span, iron deficiency anemia, and EPO administration. HbA1c > 7.5% in ESRD patient may overestimate the extent of hyperglycemia in ESRD patients. ASSESSMENT: 05/24/23 * Patient's BSGs yesterday were [phone] mg/dL. Patient received 188 units of insulin (70 units of basal and 118 units of bolus). * BSGs today are 103-92 mg/dL. (Patient was in dialysis early this morning thus breakfast not given until later). * Since fasting is trending down significantly, held AM Lantus. Patient to be N PO tomorrow so plan for just 35 units of Lantus today (half of previous day's dose). Can redose tomorrow morning if necessary. * Loosen CR since patient's BSGs trending downwards today. 05/22/23 * Patient received total of 141 units of insulin yesterday, of which 60 units were basal insulin * Fasting BSG trending upward 294 mg/dL - will further titrate basal ~30% this AM * Tightened CF/CR this AM also as BSGs in 200-300s yesterday. Lunch BSG remains unchanged, will continue same parameters for now 05/21/23 * Patient's BSGs yesterday were [phone]- patient received 123 units of insulin (60 units of basal and 63 units of bolus). Compared to 05/19, the patient's insulin doubled (66 units total vs 123 units total). * Today's BSGs are 269-300 mg/dL. Will continue Lantus 30 units SQ BID for one more day as yesterday was the first day insulin regimen similar to home regimen was achieved. * Loosened CF to prevent overcorrection but tightened CR to 2. CR was 4 yester day. Monitor. BACKGROUND * 72-year-old female admitted with intertrochanteric fracture of left femur d/t fall out of wheelchair, PMH ESRD on PD, DM, HTN, HLD, stroke, hypothyroidism, GERD, depression, RLS. Patient minimally ambulatory at baseline, mostly uses wheelchair. * Plan for non-surgical treatment at this time. * Outpatient regimen is premixed basal/prandial insulin of NovoLog 70/30 mix insulin. * Pre-mixed insulin is difficult to titrate since it is already in a fixed distribution of basal:prandial insulin. Continuing pre-mixed insulin for admission typically lead to hypoglycemia d/t changing PO status but rapid acting insulin is unable to be held. * Patient started on basal bolus insulin last night on admission, blood sugars at goal, continue to follow and adjust to goal blood sugar. PLAN FOR INPATIENT GLYCEMIC CONTROL: * Basal insulin - Decrease * Lantus 35 units SQ HS tonight then reevaluate * Bolus insulin * NovoLog per scale ACHS or Q6hrs while NPO * Goal Range: Low 110 mg/dL - High 140 mg/dL * Correction Factor: 15 mg/dL/unit * Nutritional / Prandial insulin per carb ratio of 1 unit per 2 grams CHO consumed
--- NOTE | 2023-05-24 18:09 | Hospitalist Progress Note ---
Date of Service May 24, 2023 Assessment & Plan (1) Fall: Plan: (1) Fall: (2) Intertrochanteric fracture of left femur: Plan: Patient is 72-year-old female with PMH ESRD on PD, insulin-dependent diabetes, HTN, HLD, stroke, hypothyroidism, GERD, depression, RLS presented to ER with complaint of falling out of wheelchair and left hip pain. Minimally ambulatory at baseline, mostly uses wheelchair Hip x-ray: Mildly displaced left femoral intertrochanteric fracture. Orthopedics evaluated patient and feels patient high surgical risk and with current minimal baseline ambulation likely will not be surgical candidate. Continue pain control Continue PT OT; will need rehab Pain control with scheduled Tylenol and Dilaudid 05/24 stable overall continue pain management (3) End stage renal disease: Plan: ESRD on PD Continue renal meds, Bumex As per nephrology, patient to be transition to hemodialysis for placement at rehab. Vascular surgery has been consulted. Timing of permacath placement depending on vascular surgery. 05/24 Nephro managing PD Vasc Surgery consulted for HD cath placement, plan for 05/25 (4) DM type 2 (diabetes mellitus, type 2): Plan: Insulin-dependent diabetes A1c: 10 on 12/25/2022 Hold home NovoLog 70/30 Basal bolus insulin per protocol Glycemic pharmacy consult A1c of 8.4% (5) History of stroke: Plan: Continue aspirin, Plavix, atorvastatin. (6) Hypertension: Plan: Continue amlodipine, metoprolol succinate, isosorbide (7) Hyperlipidemia: Plan: Continue atorvastatin (8) Hypothyroid: Plan: Continue levothyroxine (9) GERD (gastroesophageal reflux disease): Plan: Continue PPI (10) Depression: Plan: Continue home meds DVT Prophylaxis heparin DNR/DNI. Admission and Anticipated Discharge Date Admission Date: May 18, 2023 Subjective ff up for fall, etc seen resting in bed, comfortable states she feels fine overall pain adequately controlled no chest pain, dyspnea, palpitations, dizziness no other symptoms Review of Systems Review of Systems: all noted and negative except for above Physical Exam Physical Exam: General- oriented x 3, not in distress, speaks in sentences with no effort or accessory muscle use Eyes- anicteric Neck- no JVD Lungs- clear BS BL Heart- normal rate, regular rhythm; no murmurs Abdomen- normal bowel sounds, nondistended, soft, no tenderness Extremities- no pretibial edema, no calf tenderness Neuro- alert, oriented x 3; no gross focal neurologic deficits Skin- warm & dry Results & Data Results & Data Vital Signs (Past 12 Hours) Vital Signs Temp Pulse Pulse Pulse Resp BP BP 05/24/23 16:45 80 05/24/23 16:41 36.4 C L 81 18 121/69 05/24/23 15:30 36.6 C 81 18 115/66 05/24/23 07:45 36.6 C 75 17 05/24/23 12:04 36.6 C 83 20 163/78 H 05/24/23 11:47 79 05/24/23 11:20 36.6 C 85 19 132/67 05/24/23 07:45 36.5 C 75 17 127/82 Pulse Ox O2 Del Method 05/24/23 16:45 05/24/23 16:41 96 Room Air 05/24/23 15:30 99 Room Air 05/24/23 07:45 05/24/23 12:04 99 Room Air 05/24/23 11:47 05/24/23 11:20 97 Room Air 05/24/23 07:45 94 Room Air all noted and reviewed including below
[2023-05-24] MEDS: rOPINIRole HCL 0.25 MG TABLET PO SCH (19:54)
[2023-05-24] MEDS: MIRTAZAPINE TAB 15 MG TAB PO SCH (19:54)
[2023-05-24] MEDS: GABAPENTIN 600 MG TAB PO SCH (19:54)
[2023-05-24] MEDS ORDERED: LANTUS PER UNIT CHARGE SQ SCH (21:00)
[2023-05-25] MEDS: INSULIN ASPART PER UNIT CHARGE SC SCH ×4 (00:30→18:26)
[2023-05-25] MEDS ORDERED: ceFAZolin 2000MG 2,000 MG/15 ML SYR IV ONE (06:00)
[2023-05-25] MEDS: ACETAMINOPHEN 500 MG TAB PO SCH ×3 (06:16→18:27)
[2023-05-25] MEDS: LEVOTHYROXINE SODIUM 50 MCG TABLET PO SCH (06:16)
--- NOTE | 2023-05-25 07:36 | History & Physical Bridge Note ---
Date of Service May 25, 2023 History & Physical Bridge Note Patient for insertion of permcath today. I have discussed the risks options and benefits of the procedure with the patient. The patient understands the risks options and benefits and agrees to the procedure. I have examined the patient, reviewed the History & Physical and in the interval since the performance of the History & Physical I have noted the following changes of clinical significance: no changes noted
[2023-05-25] MEDS: CHOLECALCIFEROL 5,000 UNITS 125 MCG TAB PO SCH (08:37)
[2023-05-25] MEDS: CLOPIDOGREL BISULFATE 75 MG TAB PO SCH (08:37)
[2023-05-25] MEDS: ATORVASTATIN 40 MG TAB PO SCH (08:37)
[2023-05-25] MEDS: DULoxetine HCL 20 MG CAP PO SCH (08:37)
[2023-05-25] MEDS: PANTOprazole 40 MG TAB PO SCH (08:37)
[2023-05-25] MEDS: ASPIRIN 81 MG ECTAB PO SCH (08:37)
[2023-05-25] MEDS: ISOSORBIDE MONO EXTENDED REL 30 MG TABCR PO SCH (08:37)
[2023-05-25] MEDS: METOPROLOL SUCC 50MG EXT REL TAB PO SCH (08:38)
[2023-05-25] MEDS: GABAPENTIN 300 MG CAP PO SCH (08:38)
[2023-05-25] MEDS: amLODIPine BESYLATE 5 MG TAB PO SCH (08:38)
[2023-05-25] MEDS: SEVELAMER HCL 800 MG TABLET PO SCH ×3 (08:38→17:29)
[2023-05-25] MEDS: BUMETANIDE 1 MG TAB PO SCH ×2 (08:38→17:28)
[2023-05-25] MEDS: oxyBUTYnin chloride 5 MG TAB PO SCH (08:38)
[2023-05-25] MEDS: DOCUSATE SODIUM 100 MG CAP PO SCH ×2 (08:40→20:46)
--- NOTE | 2023-05-25 10:04 | Orthopedic Progress Note ---
Date of Service May 25, 2023 Assessment & Plan (1) Intertrochanteric fracture of left femur: Plan: Patient will continue with nonweightbearing on the left lower extremity with a walker and assistance Ice to affected area prn Physical therapy and Occupational Therapy daily. DVT prophylaxis per the primary team. Case management for discharge needs. Recommend rehab or nursing facility due to maintain safety Patient is scheduled 06/18 in our outpatient office and will have repeat x-rays of her left hip to be done at that time. Admission and Anticipated Discharge Date Admission Date: May 18, 2023 Subjective This 72-year-old female is seen for follow-up of a nonoperative left trochanteric femur fracture. She is very somnolent during her examination. She states that she really does not have any pain. She states that she thinks she is supposed to have a new port placed in for dialysis later today. Currently she denies chest pain, shortness of breath, nausea, vomiting or significant pain in the left lower extremity. Review of Systems Review of Systems: Please refer to HPI Physical Exam Physical Exam: Left lower extremity: Patient is able to perform active straight leg raise test. She is able to actively dorsi and plantarflex her foot. She tolerates light passive hip flexion along with internal and external rotation with only mild pain referred to the lateral aspect of her hip. She is tender to palpation. Her quad strength is 3+ out of 5 and she is neurovascular intact. Results & Data Vital Signs (Past 12 Hours) Vital Signs Temp Pulse Pulse Resp BP Pulse Ox O2 Del Method 05/25/23 07:45 83 05/25/23 07:05 36.6 C 79 16 157/78 H 95 Room Air 05/25/23 04:36 Room Air 05/24/23 23:05 36.5 C 77 16 142/74 H 95 Room Air Diagnostic Findings Laboratory Results WBC 12.01 K/ul (4.8-10.8) H 05/20/23 06:08 RBC 2.96 M/uL (4.20-5.40) L 05/20/23 06:08 Hgb 9.1 g/dl (12.0-16.0) L 05/20/23 06:08 Hct 27.0 % (37.0-47.0) L 05/20/23 06:08 MCV 91.2 fL (80.0-100.0) 05/20/23 06:08 MCH 30.7 pg (25.0-34.0) 05/20/23 06:08 MCHC 33.7 g/dL (32.0-36.0) 05/20/23 06:08 RDW Std Deviation 42.1 fL (36.4-46.3) 05/20/23 06:08 RDW Coeff of [place] 12.6 % (11.5-14.5) 05/20/23 06:08 Plt Count 209 K/uL (130-400) 05/20/23 06:08 MPV 10.6 fL (9.4-12.4) 05/20/23 06:08 Immature Gran % (Auto) 1.2 % 05/20/23 06:08 Neut % (Auto) 77.6 % 05/20/23 06:08 Lymph % (Auto) 10.2 % 05/20/23 06:08 [place] % (Auto) 9.4 % 05/20/23 06:08 Eos % (Auto) 0.7 % 05/20/23 06:08 Baso % (Auto) 0.9 % 05/20/23 06:08 Neut # (Auto) 9.30 K/uL (1.40-6.50) H 05/20/23 06:08 Lymph # (Auto) 1.23 K/uL (1.20-3.40) 05/20/23 06:08 [place] # (Auto) 1.13 K/uL (0.11-0.59) H 05/20/23 06:08 Eos # (Auto) 0.09 K/uL (0.00-0.50) 05/20/23 06:08 Baso # (Auto) 0.11 K/uL (0.00-0.20) 05/20/23 06:08 Immature Gran # (Auto) 0.15 K/uL (0.01-0.20) 05/20/23 06:08 Absolute Nucleated RBC 0.02 K/uL (0.00-0.12) 05/20/23 06:08 Nucleated RBC % (auto) 0.2 % 05/20/23 06:08 PT 10.8 Seconds (9.0-12.0) 05/18/23 13:53 INR 1.0 (0.9-1.1) 05/18/23 13:53 APTT 24.8 Seconds (21.0-31.0) 05/18/23 13:53 PTT Ratio 0.9 05/18/23 13:53 Sodium 131 mmol/L (136-145) L 05/24/23 04:49 Potassium 4.1 mmol/L (3.5-5.1) 05/24/23 04:49 Chloride 92 mmol/L (98-107) L 05/24/23 04:49 Carbon Dioxide 24 mmol/L (21-32) 05/24/23 04:49 Anion Gap 15 (3-11) H 05/24/23 04:49 BUN 84 mg/dl (6-23) H 05/24/23 04:49 Creatinine 6.29 mg/dl (0.6-1.2) H* 05/24/23 04:49 Est Cr Clr Drug Dosing 9.3 ml/min 05/24/23 04:49 Est GFR ( Amer) 7.1 ml/min 05/24/23 04:49 Est GFR (Non-Af Amer) 6.1 ml/min 05/24/23 04:49 BUN/Creatinine Ratio 13.4 (10-20) 05/24/23 04:49 Glucose 103 mg/dl (70-99(Fasting)) H 05/24/23 04:49 POC Glucose 101 mg/dl (70-99) H 05/25/23 06:09 Estimat Average Glucose 194 mg/dl 05/18/23 13:53 Hemoglobin A1c 8.4 % (4.5-5.6) H 05/18/23 13:53 Calcium 9.1 mg/dl (8.6-10.3) 05/24/23 04:49 Phosphorus 6.7 mg/dl (2.5-4.9) H 05/19/23 06:13 Magnesium 1.7 mg/dl (1.7-2.4) 05/19/23 06:13 Total Bilirubin 0.3 mg/dl (0.2-1.0) 05/18/23 13:53 AST 18 U/L (13-39) 05/18/23 13:53 ALT 14 U/L (7-52) 05/18/23 13:53 Alkaline Phosphatase 75 U/L (34-104) 05/18/23 13:53 Total Protein 7.2 gm/dl (6.0-8.3) 05/18/23 13:53 Albumin 4.0 gm/dl (3.4-5.0) 05/18/23 13:53 Globulin 3.2 gm/dl (2.5-4.0) 05/18/23 13:53 Albumin/Globulin Ratio 1.3 (0.9-2) 05/18/23 13:53 Nasal Screen MRSA (PCR) Negative (Negative) 05/18/23 23:14 Hep Bs Antigen NON-REACTIVE (NON-REACTIVE) 05/22/23 06:13 Hep Bs Ag Confirmation TNP 05/22/23 06:13 Hep Bs Antibody, Quant >1000 mIU/mL (> OR = 10) 05/22/23 06:13 SARS-CoV-2, RNA, NAAT NEGATIVE (NEGATIVE) 05/18/23 14:50 Blood Type A Positive 05/18/23 18:05 Antibody Screen NEGATIVE 05/18/23 18:05 Impressions Hip/Pelvis X-Ray 05/18/23 13:57 XR hip LT 2V w pelvis CLINICAL HISTORY: fall, pain COMPARISON STUDY: None. FINDINGS: There is a mildly displaced and comminuted intertrochanteric fracture of the proximal left femur. The fracture extends into the proximal shaft of the left femur. No dislocation. No additional fractures identified within the pelvis or right hip. A peritoneal catheter seen within the deep pelvis. IMPRESSION: Mildly displaced left femoral intertrochanteric fracture as descri bed above. ACT 112: Negative or not required by law. Electronically signed by: Bryan Freeman M.D. 05/18/2023 3:45 PM Chest X-Ray 05/18/23 20:03 XR chest 1V portable CLINICAL HISTORY: pre-op COMPARISON STUDY: Chest radiograph October 12, 2022. FINDINGS: Patient is rotated. This likely accounts for mediastinal widening. Cardiac size is normal. There is no evidence for pulmonary edema. No consolidation to suggest pneumonia. No pneumothorax or pleural effusion. IMPRESSION: No acute cardiopulmonary findings. Rotated study. ACT 112: Negative or not required by law. Electronically signed by: Pacheco Culver M.D. 05/19/2023 6:53 AM
[2023-05-25] MEDS ORDERED: SODIUM CHLORIDE 0.9% 1,000 ML IV PRN (10:35)
--- NOTE | 2023-05-25 10:39 | Nephrology Progress Note ---
Date of Service May 25, 2023 Assessment & Plan Admission and Anticipated Discharge Date Admission Date: May 18, 2023 Subjective Assessment & Plan (1) ESRD (end stage renal disease) on dialysis: Plan: Her volume status and BP are acceptable; potassium, calcium other chemistries at goal. not currently anemic. She has agreed to convert to hemodialysis given patient would not be able to do PD in the shelter/rehab. Once permcath is placed later today around noon, patient will convert to hemodialysis. We will leave the PD catheter in situ. It will require weekly flushing at the rehab by family members. Also she is starting to think she wants to be in SNF shelter as she feels she is being too much of burden at home. Advised her to think this through, Discuss with family and also social service liaison and hospice case manager when she is at rehab/SNF. Decision about PD vs HD to be made after discharge by Dr Farias hemodialysis today 3.5 hrs 2.5 kilo off and 3 k bath. No heparin and no meds. (2) Intertrochanteric fracture of left femur: Plan: Patient is for conservative management, OT/PT Before discharge, Subjective Seen for ESRD on PD.net UF overnight 450 ml. There was some issuse and PD nurse was called at 1 AM. No shortness of breath.getting HD cath tomorrow. Main complaint is right hip pain. Review of Systems Review of Systems: All other systems were reviewed and negative except as noted in HPI Physical Exam Physical Exam: General exam: Appears comfortable, no acute distress HEENT: Pupils are equal and reactive to light Neck: No JVD, neck is supple trachea is midline Respiratory system: Clear breath sounds bilaterally. Gastrointestinal: Abdomen is soft, non distended, non tender, bowel sounds are present CVS: Regular rate and rhythm. No murmurs, rubs or gallops Musculoskeletal: No joint or muscle tenderness Extremities: No edema present. Right hip tenderness Neuro: Oriented, no tremors, no focal neurological deficits Skin: No rashes Results & Data Vital Signs (Past 12 Hours) Vital Signs Temp Pulse Pulse Resp BP Pulse Ox O2 Del Method 05/25/23 07:45 83 05/25/23 07:05 36.6 C 79 16 157/78 H 95 Room Air 05/25/23 04:36 Room Air 05/24/23 23:05 36.5 C 77 16 142/74 H 95 Room Air
[2023-05-25] MEDS ORDERED: ceFAZolin 2,000 MG/15 ML IV PUSH IV ONE (11:46)
[2023-05-25] MEDS ORDERED: LIDOCAINE 1% LOCAL 20 ML VIAL ONE (11:57)
[2023-05-25] MEDS ORDERED: HEPARIN SOD (PORCINE) 5,000 UNITS/ML VIAL ONE (11:57)
--- NOTE | 2023-05-25 12:00 | Pre Anesthesia Assessment ---
Date of Service May 25, 2023 Pre Sedation Assessment Vital Signs Temp Pulse Pulse Pulse Resp BP BP 05/25/23 11:34 36.7 C 86 12 146/71 H 05/25/23 11:01 36.5 C 84 16 154/72 H 05/25/23 07:45 83 05/25/23 07:05 36.6 C 79 16 157/78 H 05/25/23 04:36 05/24/23 22:03 81 05/24/23 23:05 36.5 C 77 16 142/74 H 05/24/23 19:48 36.4 C L 74 18 139/68 05/24/23 16:45 80 05/24/23 16:41 36.4 C L 81 18 121/69 05/24/23 15:30 36.6 C 81 18 115/66 05/24/23 12:04 36.6 C 83 20 163/78 H Pulse Ox O2 Del Method 05/25/23 11:34 95 Room Air 05/25/23 11:01 96 Room Air 05/25/23 07:45 05/25/23 07:05 95 Room Air 05/25/23 04:36 Room Air 05/24/23 22:03 05/24/23 23:05 95 Room Air 05/24/23 19:48 98 Room Air 05/24/23 16:45 05/24/23 16:41 96 Room Air 05/24/23 15:30 99 Room Air 05/24/23 12:04 99 Room Air Cardiovascular RRR, no murmur, no edema Respiratory normal respiratory effort, lungs clear to auscultation Pre-Sedation Airway Assessment Smoking Status: Never smoker Hx Sleep Apnea: Yes Short, Thick Neck: No Thyromental Distance: > or= 3.5 Finger Breadths Oral Cavity: + WNL Mallampati Class: III ASA: ASA3 NPO Status Date of Last Intake of Fluids: 05/24/23 Time of Last Intake of Fluids: 23:00 Date of Last Intake of Solid Food: 05/24/23 Time of Last Intake of Solid Foods: 19:00 Procedure Planning Contraindications for Sedation: none Current Medications Reviewed: Yes Notes The planned sedation has been discussed with the patient. Informed Consent was obtained. I have identified the patient, determined the appropriateness of sedation and have assessed the patient immediately prior to the procedure. All medicine(s) and interventions are by my order.
[2023-05-25] MEDS ORDERED: fentaNYL citrate PF 100 MCG/2 ML VIAL ONE (12:22)
[2023-05-25] MEDS ORDERED: MIDAZOLAM HCL 1 MG/ML 2ML VIAL ONE (12:22)
--- NOTE | 2023-05-25 12:35 | Pharmacy Report ---
Pharmacy Glycemic Short Note 2 - Date of Service May 25, 2023 - Glycemic Short BSG Results (Last 24 hours): 05/24/23 05/24/23 05/24/23 17:34 20:38 22:44 POC Glucose 72 123 H 88 05/25/23 05/25/23 05/25/23 00:21 02:06 06:09 POC Glucose 74 75 101 H 05/25/23 05/25/23 11:31 12:02 POC Glucose 94 99 OUTPATIENT ANTIDIABETIC REGIMEN: * Novolog 70/30 66 units AM, 56 units PM * A1c = 8.9% * However, this result is likely somewhat unreliable in ESRD patients d/t interactions between the A1c analyzing technique and high levels of urea in ESRD, reduced RBC life span, iron deficiency anemia, and EPO administration. HbA1c > 7.5% in ESRD patient may overestimate the extent of hyperglycemia in ESRD patients. ASSESSMENT: 05/25/23 * BSGs yesterday were [phone] mg/dL. Patient received 71 units of bolus insulin. NO basal insulin. * Patient is NPO and receiving a Perm cath. She is transitioning from PD to HD. * Lantus 20-30 units tonight based upon BSG. This is less than half what patient was receiving while on PD. * Loosen Novolog to reflect new lantus doses 05/24/23 * Patient's BSGs yesterday were [phone] mg/dL. Patient received 188 units of insulin (70 units of basal and 118 units of bolus). * BSGs today are 103-92 mg/dL. (Patient was in dialysis early this morning thus breakfast not given until later). * Since fasting is trending down significantly, held AM Lantus. Patient to be NPO tomorrow so plan for just 35 units of Lantus today (half of previous day's dose). Can redose tomorrow morning if necessary. * Loosen CR since patient's BSGs trending downwards today. 05/22/23 * Patient received total of 141 units of insulin yesterday, of which 60 units were basal insulin * Fasting BSG trending upward 294 mg/dL - will further titrate basal ~30% this AM * Tightened CF/CR this AM also as BSGs in 200-300s yesterday. Lunch BSG remains unchanged, will continue same parameters for now 05/21/23 * Patient's BSGs yesterday were [phone]- patient received 123 units of insulin (60 units of basal and 63 units of bolus). Compared to 05/19, the patient's insulin doubled (66 units total vs 123 units total). * Today's BSGs are 269-300 mg/dL. Will continue Lantus 30 units SQ BID for one more day as yesterday was the first day insulin regimen similar to home regimen was achieved. * Loosened CF to prevent overcorrection but tightened CR to 2. CR was 4 yesterday. Monitor. BACKGROUND * 72-year-old female admitted with intertrochanteric fracture of left femur d/t fall out of wheelchair, PMH ESRD on PD, DM, HTN, HLD, stroke, hypothyroidism, GERD, depression, RLS. Patient minimally ambulatory at baseline, mostly uses wheelchair. * Plan for non-surgical treatment at this time. * Outpatient regimen is premixed basal/prandial insulin of NovoLog 70/30 mix insulin. * Pre-mixed insulin is difficult to titrate since it is already in a fixed distribution of basal:prandial insulin. Continuing pre-mixed insulin for admission typically lead to hypoglycemia d/t changing PO status but rapid acting insulin is unable to be held. * Patient started on basal bolus insulin last night on admission, blood sugars at goal, continue to follow and adjust to goal blood sugar. PLAN FOR INPATIENT GLYCEMIC CONTROL: * Basal insulin - Decrease * Lantus 20-30 units SQ HS tonight then reevaluate * Bolus insulin * NovoLog per scale ACHS or Q6hrs while NPO * Goal Range: Low 110 mg/dL - High 140 mg/dL * Correction Factor: 20 mg/dL/unit * Nutritional / Prandial insulin per carb ratio of 1 unit per 7 grams CHO consumed
--- NOTE | 2023-05-25 12:59 | Operative Report ---
Post Operative Report Pre & Post Diagnosis Operation Date: 05/25/23 12:00 Pre-Op Diagnosis: End stage renal disease Post-Op Diagnosis: End stage renal disease I identified the patient and participated in the time-out.: Yes Procedure Operation Date: 05/25/23 12:00 Actual Procedures p Perm Catheter Insertion Right Jugular Vein, Ultrasound Localization of Right Jugular Vein, Fluoroscopy for Postioning(Right) - Andi Womack MD Surgeon Andi Womack MD [employer] Information Clerk none Estimated Blood Loss 5 Findings Consistent with Post-Op Diagnosis Specimens none Anesthesia Type Local Complications none Disposition Accompanied Patient To Recovery: No Disposition: Recovery Room Indications This is a 72-year-old female with end-stage renal disease in need of dialysis. PermCath for access was recommended. I have discussed the risks options and benefits of the procedure with the patient. The patient understands the risks options and benefits and agrees to the procedure. Description of Procedure Patient was taken to the angio suite and placed in the supine position. The right side of the neck and chest wall were prepped and draped in a sterile manner. The patient was identified and a timeout performed. Local anesthesia was then administered to the appropriate areas of the neck and chest wall. Ultrasound was then used to locate the right internal jugular vein. The vein compressed easily, had no filing defects, and was patent. The vein was then punctured under direct ultrasound imaging. A guidewire was then passed centrally under fluoroscopic imaging. A stab wound was then made in the anterior chest wall and a 19 cm permcath was passed from the stab wound on the chest wall to the puncture site on the neck. The puncture site was then dilated till the 14Fr peel away sheath was inserted. The permcath was then inserted through the sheath to a central position in the distal superior vena cava. The peel away sheath was then removed. The catheter was then sutured in place using nylon sutures. The puncture was then closed using a 4-0 Vicryl subcuticular suture. Dermabond was used for a dressing on the puncture site. Both ports aspirated and flushed easily and were then packed with heparin. A sterile dressing was applied to the catheter. The patient left the operation room in satisfactory condition and tolerated the procedure well. All needle and sponge counts were correct at the end of the procedure. I attest to the content of the Intraoperative Record and any orders documented therein. Any exceptions are noted below.
[2023-05-25] MEDS: HYDROmorphone INJ 0.5 MG/0.5 ML SYR IV PRN ×2 (13:33→20:46)
[2023-05-25] MEDS ORDERED: HEPARIN SOD 5,000 UNIT/0.5 ML VIAL SQ SCH (14:00)
--- NOTE | 2023-05-25 17:54 | Hospitalist Progress Note ---
Date of Service May 25, 2023 delayed entry date of service noted above Assessment & Plan (1) Fall: Plan: (1) Fall: (2) Intertrochanteric fracture of left femur: Plan: Patient is 72-year-old female with PMH ESRD on PD, insulin-dependent diabetes, HTN, HLD, stroke, hypothyroidism, GERD, depression, RLS presented to ER with complaint of falling out of wheelchair and left hip pain. Minimally ambulatory at baseline, mostly uses wheelchair Hip x-ray: Mildly displaced left femoral intertrochanteric fracture. Orthopedics evaluated patient and feels patient high surgical risk and with current minimal baseline ambulation likely will not be surgical candidate. Continue pain control Continue PT OT; will need rehab Pain control with scheduled Tylenol and Dilaudid 05/25 stable overall continue pain management (3) End stage renal disease: Plan: ESRD on PD Continue renal meds, Bumex As per nephrology, patient to be transition to hemodialysis for placement at rehab. Vascular surgery has been consulted. Timing of permacath placement depending on vascular surgery. 05/25 Nephro managing PD s/p permcath placement 05/26 to transition to HD as outpatient (4) DM type 2 (diabetes mellitus, type 2): Plan: Insulin-dependent diabetes A1c: 10 on 12/25/2022 Hold home NovoLog 70/30 Basal bolus insulin per protocol Glycemic pharmacy consult A1c of 8.4% (5) History of stroke: Plan: Continue aspirin, Plavix, atorvastatin. (6) Hypertension: Plan: Continue amlodipine, metoprolol succinate, isosorbide (7) Hyperlipidemia: Plan: Continue atorvastatin (8) Hypothyroid: Plan: Continue levothyroxine (9) GERD (gastroesophageal reflux disease): Plan: Continue PPI (10) Depression: Plan: Continue home meds DVT Prophylaxis heparin DNR/DNI. Admission and Anticipated Discharge Date Admission Date: May 18, 2023 Subjective ff up for fall, etc s/p permcath placement resting in bed, comfortable has mild soreness of the cath area no other new symptoms Review of Systems Review of Systems: all noted and negative except for above Physical Exam Physical Exam: General- oriented x 3, not in distress, speaks in sentences with no effort or accessory muscle use Eyes- anicteric Neck- no JVD Lungs- clear breath sounds bilaterally, no rales/wheezes Right chest wall: (+) permcath, no hematoma, bleeding Heart- normal rate, regular rhythm; no murmurs Abdomen- normal bowel sounds, nondistended, soft, nontender Extremities- no pretibial edema, no calf tenderness Neuro- alert, oriented x 3; no gross focal neurologic deficits Skin- warm & dry Results & Data Results & Data Vital Signs (Past 12 Hours) Vital Signs Temp Pulse Pulse Pulse Resp BP BP 05/25/23 17:04 36.4 C L 87 127/88 05/25/23 16:30 90 122/64 05/25/23 16:00 86 138/69 05/25/23 15:30 95 H 124/63 05/25/23 15:00 87 106/62 05/25/23 14:30 86 130/66 05/25/23 14:00 87 117/68 05/25/23 13:45 87 123/65 05/25/23 13:30 80 115/57 L 05/25/23 13:24 85 114/59 L 05/25/23 13:10 84 153/75 H 05/25/23 13:00 36.7 C 84 05/25/23 12:47 87 16 05/25/23 12:42 89 16 05/25/23 12:37 87 16 05/25/23 12:27 86 16 05/25/23 11:34 36.7 C 86 12 05/25/23 11:01 36.5 C 84 16 154/72 H 05/25/23 07:45 83 05/25/23 07:05 36.6 C 79 16 157/78 H BP Pulse Ox O2 Del Method O2 Flow Rate 05/25/23 17:04 05/25/23 16:30 05/25/23 16:00 05/25/23 15:30 05/25/23 15:00 05/25/23 14:30 05/25/23 14:00 05/25/23 13:45 05/25/23 13:30 05/25/23 13:24 05/25/23 13:10 05/25/23 13:00 05/25/23 12:47 159/75 H 100 Oxymask 4 05/25/23 12:42 158/86 H 100 Oxymask 4 05/25/23 12:37 176/77 H 100 Oxymask 4 05/25/23 12:27 167/78 H 100 Oxymask 4 05/25/23 11:34 146/71 H 95 Room Air 05/25/23 11:01 96 Room Air 05/25/23 07:45 05/25/23 07:05 95 Room Air all noted and reviewed including below
[2023-05-25] MEDS ORDERED: Nursing to Pharmacy Communication SCH (18:15)
[2023-05-25] MEDS: LANTUS PER UNIT CHARGE SC SCH (20:44)
[2023-05-25] MEDS: MIRTAZAPINE TAB 15 MG TAB PO SCH (20:45)
[2023-05-25] MEDS: rOPINIRole HCL 0.25 MG TABLET PO SCH (20:45)
[2023-05-25] MEDS: GABAPENTIN 600 MG TAB PO SCH (20:45)
[2023-05-25] MEDS ORDERED: LANTUS PER UNIT CHARGE SC SCH (21:00)
[2023-05-26] MEDS: HEPARIN SOD 5,000 UNIT/0.5 ML VIAL SQ SCH ×3 (00:58→17:39)
[2023-05-26] MEDS: INSULIN ASPART PER UNIT CHARGE SC SCH ×6 (00:58→20:46)
[2023-05-26] MEDS: ACETAMINOPHEN 500 MG TAB PO SCH ×5 (01:00→23:00)
[2023-05-26] MEDS: LEVOTHYROXINE SODIUM 50 MCG TABLET PO SCH (05:28)
[2023-05-26] MEDS ORDERED: Nursing to Pharmacy Communication SCH (07:15)
[2023-05-26] MEDS: SEVELAMER HCL 800 MG TABLET PO SCH ×3 (09:17→17:34)
[2023-05-26] MEDS: CHOLECALCIFEROL 5,000 UNITS 125 MCG TAB PO SCH (09:42)
[2023-05-26] MEDS: METOPROLOL SUCC 50MG EXT REL TAB PO SCH (09:42)
[2023-05-26] MEDS: GABAPENTIN 300 MG CAP PO SCH (09:42)
[2023-05-26] MEDS: ASPIRIN 81 MG ECTAB PO SCH (09:42)
[2023-05-26] MEDS: PANTOprazole 40 MG TAB PO SCH (09:42)
[2023-05-26] MEDS: ATORVASTATIN 40 MG TAB PO SCH (09:42)
[2023-05-26] MEDS: oxyBUTYnin chloride 5 MG TAB PO SCH (09:42)
[2023-05-26] MEDS: CLOPIDOGREL BISULFATE 75 MG TAB PO SCH (09:42)
[2023-05-26] MEDS: amLODIPine BESYLATE 5 MG TAB PO SCH (09:42)
[2023-05-26] MEDS: BUMETANIDE 1 MG TAB PO SCH ×2 (09:42→17:34)
[2023-05-26] MEDS: ISOSORBIDE MONO EXTENDED REL 30 MG TABCR PO SCH (09:42)
[2023-05-26] MEDS: DULoxetine HCL 20 MG CAP PO SCH (09:43)
[2023-05-26] MEDS: LANTUS PER UNIT CHARGE SC SCH ×2 (09:49→20:46)
[2023-05-26] MEDS: DOCUSATE SODIUM 100 MG CAP PO SCH ×2 (09:49→20:50)
[2023-05-26] MEDS: HYDROmorphone INJ 0.5 MG/0.5 ML SYR IV PRN ×2 (18:26→23:01)
[2023-05-26] MEDS: rOPINIRole HCL 0.25 MG TABLET PO SCH (20:50)
[2023-05-26] MEDS: GABAPENTIN 600 MG TAB PO SCH (20:50)
[2023-05-26] MEDS: MIRTAZAPINE TAB 15 MG TAB PO SCH (20:50)
[2023-05-26] MEDS ORDERED: HYDROmorphone INJ 0.5 MG/0.5 ML SYR IV STA (21:04)
[2023-05-27] MEDS: HEPARIN SOD 5,000 UNIT/0.5 ML VIAL SQ SCH ×3 (02:17→17:20)
[2023-05-27] MEDS: LEVOTHYROXINE SODIUM 50 MCG TABLET PO SCH (05:36)
[2023-05-27] MEDS: ACETAMINOPHEN 500 MG TAB PO SCH ×4 (05:36→22:52)
[2023-05-27] MEDS: HYDROmorphone INJ 0.5 MG/0.5 ML SYR IV PRN ×3 (05:37→20:14)
[2023-05-27] MEDS: oxyBUTYnin chloride 5 MG TAB PO SCH (08:56)
[2023-05-27] MEDS: amLODIPine BESYLATE 5 MG TAB PO SCH (08:56)
[2023-05-27] MEDS: CHOLECALCIFEROL 5,000 UNITS 125 MCG TAB PO SCH (08:56)
[2023-05-27] MEDS: CLOPIDOGREL BISULFATE 75 MG TAB PO SCH (08:56)
[2023-05-27] MEDS: ISOSORBIDE MONO EXTENDED REL 30 MG TABCR PO SCH (08:56)
[2023-05-27] MEDS: BUMETANIDE 1 MG TAB PO SCH ×2 (08:57→17:21)
[2023-05-27] MEDS: METOPROLOL SUCC 50MG EXT REL TAB PO SCH (08:57)
[2023-05-27] MEDS: ASPIRIN 81 MG ECTAB PO SCH (08:57)
[2023-05-27] MEDS: GABAPENTIN 300 MG CAP PO SCH (08:57)
[2023-05-27] MEDS: ATORVASTATIN 40 MG TAB PO SCH (08:57)
[2023-05-27] MEDS: PANTOprazole 40 MG TAB PO SCH (08:57)
[2023-05-27] MEDS: DULoxetine HCL 20 MG CAP PO SCH (08:57)
[2023-05-27] MEDS: SEVELAMER HCL 800 MG TABLET PO SCH ×3 (08:57→17:21)
[2023-05-27] MEDS ORDERED: LANTUS PER UNIT CHARGE SC SCH ×2 (09:00→21:00)
[2023-05-27] MEDS: DOCUSATE SODIUM 100 MG CAP PO SCH ×2 (09:03→20:14)
[2023-05-27] MEDS: INSULIN ASPART PER UNIT CHARGE SC SCH ×4 (09:03→20:16)
[2023-05-27] MEDS: POLYETHYLENE (MIRALAX) 17 GM PACK PO PRN (09:19)
--- NOTE | 2023-05-27 11:36 | Nephrology Progress Note ---
Date of Service May 27, 2023 Assessment & Plan Admission and Anticipated Discharge Date Admission Date: May 18, 2023 Subjective Assessment & Plan (1) ESRD (end stage renal disease) on dialysis: Plan: Her volume status and BP are acceptable; potassium, calcium other chemistries at goal. not currently anemic. She has agreed to convert to hemodialysis given patient would not be able to do PD in the retirement/rehab. Dialysis without issue on sunday. next HD will be tomorrow. We will leave the PD catheter in situ. It will require weekly flushing at the rehab by family members. But she is starting to think she wants to be in SNF waterm[facility] as she feels she is being too much of burden at home. Advised her to think this through, Discuss with family and also health and social care teacher and case finishing machine adjuster when she is at rehab/SNF. Decision about PD vs HD to be made after discharge by Dr Farias hemodialysis tomorrow for 3.5 hrs 2.5 kilo off and 3 k bath. may change after AM labs. No heparin and no meds. (2) Intertrochanteric fracture of left femur: Plan: Patient is for conservative management, OT/PT Before discharge, Subjective Seen for ESRD. No shortness of breath. Main complaint is right hip pain. Review of Systems Review of Systems: All other systems were reviewed and negative except as noted in HPI Physical Exam Physical Exam: General exam: Appears comfortable, no acute distress HEENT: Pupils are equal and reactive to light Neck: No JVD, neck is supple trachea is midline Respiratory system: Clear breath sounds bilaterally. Gastrointestinal: Abdomen is soft, non distended, non tender, bowel sounds are present CVS: Regular rate and rhythm. No murmurs, rubs or gallops Musculoskeletal: No joint or muscle tenderness Extremities: No edema present. Right hip tenderness Neuro: Oriented, no tremors, no focal neurological deficits Skin: No rashes Results & Data Vital Signs (Past 12 Hours) Vital Signs Temp Pulse Pulse Resp BP BP Pulse Ox 05/27/23 08:12 37 C 94 H 14 147/76 H 94 05/27/23 07:41 05/27/23 07:18 97 H 05/27/23 02:26 36.4 C L 96 H 20 148/75 H 94 O2 Del Method 05/27/23 08:12 Room Air 05/27/23 07:41 Room Air 05/27/23 07:18 05/27/23 02:26 Room Air
--- NOTE | 2023-05-27 15:17 | Hospitalist Progress Note ---
Date of Service May 27, 2023 delayed entry date of service 05/26/23 Assessment & Plan (1) Fall: Plan: (1) Fall: (2) Intertrochanteric fracture of left femur: Plan: Patient is 72-year-old female with PMH ESRD on PD, insulin-dependent diabetes, HTN, HLD, stroke, hypothyroidism, GERD, depression, RLS presented to ER with complaint of falling out of wheelchair and left hip pain. Minimally ambulatory at baseline, mostly uses wheelchair Hip x-ray: Mildly displaced left femoral intertrochanteric fracture. Orthopedics evaluated patient and feels patient high surgical risk and with current minimal baseline ambulation likely will not be surgical candidate. Continue pain control Continue PT OT; will need rehab Pain control with scheduled Tylenol and Dilaudid 05/26 stable overall continue pain management (3) End stage renal disease: Plan: ESRD on PD Continue renal meds, Bumex As per nephrology, patient to be transition to hemodialysis for placement at rehab. Vascular surgery has been consulted. Timing of permacath placement depending on vascular surgery. 05/26 Nephro managing PD s/p permcath placement 05/26 to transition to HD as outpatient (4) DM type 2 (diabetes mellitus, type 2): Plan: Insulin-dependent diabetes A1c: 10 on 12/25/2022 Hold home NovoLog 70/30 Basal bolus insulin per protocol Glycemic pharmacy consult A1c of 8.4% (5) History of stroke: Plan: Continue aspirin, Plavix, atorvastatin. (6) Hypertension: Plan: Continue amlodipine, metoprolol succinate, isosorbide (7) Hyperlipidemia: Plan: Continue atorvastatin (8) Hypothyroid: Plan: Continue levothyroxine (9) GERD (gastroesophageal reflux disease): Plan: Continue PPI (10) Depression: Plan: Continue home meds DVT Prophylaxis heparin DNR/DNI. Admission and Anticipated Discharge Date Admission Date: May 18, 2023 Subjective Follow-up for fall, etc. Seen resting in bed, sleeping but easily awakened States she feels okay overall no chest pain, dyspnea, palpitations, dizziness No other new symptoms Review of Systems Review of Systems: all noted and negative except for above Physical Exam Physical Exam: General- oriented x 3, not in distress, speaks in sentences with no effort or accessory muscle use Eyes- anicteric Neck- no JVD Lungs- clear breath sounds bilaterally, no wheezing, no crackles PermCath right chest wall: No bleeding or discharge Heart- normal rate, regular rhythm; no murmurs Abdomen- normal bowel sounds, nondistended, soft, nontender Extremities- no pretibial edema, no calf tenderness Neuro- alert, oriented x 3; no gross focal neurologic deficits Skin- warm & dry Results & Data Results & Data Vital Signs (Past 12 Hours) Vital Signs Temp Pulse Pulse Resp BP BP Pulse Ox 05/27/23 12:07 36.6 C 93 H 144/78 H 95 05/27/23 08:12 37 C 94 H 14 147/76 H 94 05/27/23 07:41 05/27/23 07:18 97 H O2 Del Method 05/27/23 12:07 Room Air 05/27/23 08:12 Room Air 05/27/23 07:41 Room Air 05/27/23 07:18 all noted and reviewed including below
--- NOTE | 2023-05-27 15:19 | Hospitalist Progress Note ---
Date of Service May 27, 2023 Assessment & Plan (1) Fall: Plan: (1) Fall: (2) Intertrochanteric fracture of left femur: Plan: Patient is 72-year-old female with PMH ESRD on PD, insulin-dependent diabetes, HTN, HLD, stroke, hypothyroidism, GERD, depression, RLS presented to ER with complaint of falling out of wheelchair and left hip pain. Minimally ambulatory at baseline, mostly uses wheelchair Hip x-ray: Mildly displaced left femoral intertrochanteric fracture. Orthopedics evaluated patient and feels patient high surgical risk and with current minimal baseline ambulation likely will not be surgical candidate. Continue pain control Continue PT OT; will need rehab Pain control with scheduled Tylenol and Dilaudid 05/27 stable overall continue pain management (3) End stage renal disease: Plan: ESRD on PD Continue renal meds, Bumex As per nephrology, patient to be transition to hemodialysis for placement at rehab. Vascular surgery has been consulted. Timing of permacath placement depending on vascular surgery. Nephro managing PD s/p permcath placement to transition to HD as outpatient For HD tomorrow (4) DM type 2 (diabetes mellitus, type 2): Plan: Insulin-dependent diabetes A1c: 10 on 12/25/2022 Hold home NovoLog 70/30 Basal bolus insulin per protocol Glycemic pharmacy consult A1c of 8.4% (5) History of stroke: Plan: Continue aspirin, Plavix, atorvastatin. (6) Hypertension: Plan: Continue amlodipine, metoprolol succinate, isosorbide (7) Hyperlipidemia: Plan: Continue atorvastatin (8) Hypothyroid: Plan: Continue levothyroxine (9) GERD (gastroesophageal reflux disease): Plan: Continue PPI (10) Depression: Plan: Continue home meds DVT Prophylaxis heparin DNR/DNI. Admission and Anticipated Discharge Date Admission Date: May 18, 2023 Subjective Follow-up for fall, etc. Seen resting in bed, comfortable, not in distress States she feels good overall Denies pain over the PermCath site No chest pain, shortness of breath, palpitations, dizziness No other new symptoms Review of Systems Review of Systems: all noted and negative except for above Physical Exam Physical Exam: General- oriented x 2, not in distress, speaks in sentences with no effort or accessory muscle use Eyes- anicteric Neck- no JVD Lungs- clear breath sounds bilaterally PermCath site: No hematoma, no bleeding, no discharge Heart- normal rate, regular rhythm; no murmurs Abdomen- normal bowel sounds, nondistended, soft, nontender Extremities- no pretibial edema, no calf tenderness Neuro- alert, oriented x 3; no gross focal neurologic deficits Skin- warm & dry Results & Data Results & Data Vital Signs (Past 12 Hours) Vital Signs Temp Pulse Pulse Resp BP BP Pulse Ox 05/27/23 15:16 90 05/27/23 12:07 36.6 C 93 H 144/78 H 95 05/27/23 08:12 37 C 94 H 14 147/76 H 94 05/27/23 07:41 05/27/23 07:18 97 H O2 Del Method 05/27/23 15:16 05/27/23 12:07 Room Air 05/27/23 08:12 Room Air 05/27/23 07:41 Room Air 05/27/23 07:18 all noted and reviewed including below
[2023-05-27] MEDS: rOPINIRole HCL 0.25 MG TABLET PO SCH (20:14)
[2023-05-27] MEDS: MIRTAZAPINE TAB 15 MG TAB PO SCH (20:14)
[2023-05-27] MEDS: GABAPENTIN 600 MG TAB PO SCH (20:14)
[2023-05-28] MEDS: HEPARIN SOD 5,000 UNIT/0.5 ML VIAL SQ SCH ×4 (01:00→17:26)
[2023-05-28 05:20] LABS: Basophils # (auto) 0.05 K/uL (0.00-0.20); Basophils % (auto) 0.4 %; Eosinophils # (auto) 0.42 K/uL (0.00-0.50); Eosinophils % (auto) 3.7 %; Hematocrit (blood only) 26.8 % (37.0-47.0); Immature Granulocytes % (auto) 1.7 %; Lymphocytes # (auto) 1.65 K/uL (1.20-3.40); Lymphocytes % (auto) 14.3 %; Mean Corpuscular Hgb Conc 33.6 g/dL (32.0-36.0); Mean Corpuscular Volume 92.4 fL (80.0-100.0); Mean Platelet Volume 9.6 fL (9.4-12.4); Monocytes # (auto) 0.92 K/uL (0.11-0.59); Neutrophils # (auto) 8.26 K/uL (1.40-6.50); Neutrophils % (auto) 71.9 %; Platelet Count 280 K/uL (130-400); RDW Coefficient of Variation 12.9 % (11.5-14.5); RDW Standard Deviation 42.9 fL (36.4-46.3)
[2023-05-28 05:44] LABS: Albumin Level 3.1 gm/dl (3.4-5.0); BUN Creatinine Ratio 18.4 (10-20); Calcium 9.6 mg/dl (8.6-10.3); Creatinine Clr Calc Pharmacy 11.9 ml/min; Est GFR (African American) 9.5 ml/min; Est GFR (Non-African American) 8.2 ml/min; Phosphorus 6.3 mg/dl (2.5-4.9); Potassium 3.8 mmol/L (3.5-5.1)
[2023-05-28] MEDS: LEVOTHYROXINE SODIUM 50 MCG TABLET PO SCH (06:18)
[2023-05-28] MEDS: ACETAMINOPHEN 500 MG TAB PO SCH ×4 (06:18→23:29)
[2023-05-28] MEDS ORDERED: SODIUM CHLORIDE 0.9% 1,000 ML IV PRN (07:00)
[2023-05-28] MEDS: ATORVASTATIN 40 MG TAB PO SCH (08:34)
[2023-05-28] MEDS: oxyBUTYnin chloride 5 MG TAB PO SCH (08:34)
[2023-05-28] MEDS: DULoxetine HCL 20 MG CAP PO SCH (08:34)
[2023-05-28] MEDS: CLOPIDOGREL BISULFATE 75 MG TAB PO SCH (08:35)
[2023-05-28] MEDS: GABAPENTIN 300 MG CAP PO SCH (08:35)
[2023-05-28] MEDS: PANTOprazole 40 MG TAB PO SCH (08:35)
[2023-05-28] MEDS: CHOLECALCIFEROL 5,000 UNITS 125 MCG TAB PO SCH (08:35)
[2023-05-28] MEDS: SEVELAMER HCL 800 MG TABLET PO SCH ×3 (08:35→17:27)
[2023-05-28] MEDS: ASPIRIN 81 MG ECTAB PO SCH (08:35)
[2023-05-28] MEDS: HYDROmorphone INJ 0.5 MG/0.5 ML SYR IV PRN ×3 (08:48→21:00)
[2023-05-28] MEDS: INSULIN ASPART PER UNIT CHARGE SC SCH ×4 (08:49→20:56)
[2023-05-28] MEDS ORDERED: EPOETIN ALFA 10,000 UNITS/ML VIAL IV SCH (09:00)
[2023-05-28] MEDS: DOCUSATE SODIUM 100 MG CAP PO SCH ×2 (09:38→20:59)
[2023-05-28] MEDS: BUMETANIDE 1 MG TAB PO SCH ×2 (09:38→17:26)
[2023-05-28] MEDS: amLODIPine BESYLATE 5 MG TAB PO SCH (09:38)
[2023-05-28] MEDS: ISOSORBIDE MONO EXTENDED REL 30 MG TABCR PO SCH (09:40)
[2023-05-28] MEDS: METOPROLOL SUCC 50MG EXT REL TAB PO SCH (09:40)
--- NOTE | 2023-05-28 12:08 | Hospitalist Progress Note ---
Date of Service May 28, 2023 Assessment & Plan (1) Fall: Plan: (1) Fall: (2) Intertrochanteric fracture of left femur: Plan: Patient is 72-year-old female with PMH ESRD on PD, insulin-dependent diabetes, HTN, HLD, stroke, hypothyroidism, GERD, depression, RLS presented to ER with complaint of falling out of wheelchair and left hip pain. Minimally ambulatory at baseline, mostly uses wheelchair Hip x-ray: Mildly displaced left femoral intertrochanteric fracture. Orthopedics evaluated patient and feels patient high surgical risk and with current minimal baseline ambulation likely will not be surgical candidate. Continue pain control Continue PT OT; will need rehab Pain control with scheduled Tylenol and Dilaudid 05/28 reports knee pain xray ordered continue pain management (3) End stage renal disease: Plan: ESRD on PD Continue renal meds, Bumex As per nephrology, patient to be transition to hemodialysis for placement at rehab. Vascular surgery has been consulted. Timing of permacath placement depending on vascular surgery. Nephro managing PD s/p permcath placement to transition to HD as outpatient For HD today (4) DM type 2 (diabetes mellitus, type 2): Plan: Insulin-dependent diabetes A1c: 10 on 12/25/2022 Hold home NovoLog 70/30 Basal bolus insulin per protocol Glycemic pharmacy consult A1c of 8.4% (5) History of stroke: Plan: Continue aspirin, Plavix, atorvastatin. (6) Hypertension: Plan: Continue amlodipine, metoprolol succinate, isosorbide (7) Hyperlipidemia: Plan: Continue atorvastatin (8) Hypothyroid: Plan: Continue levothyroxine (9) GERD (gastroesophageal reflux disease): Plan: Continue PPI (10) Depression: Plan: Continue home meds DVT Prophylaxis heparin DNR/DNI. Admission and Anticipated Discharge Date Admission Date: May 18, 2023 Subjective ff up for s/p fall, etc seen resting in bed, comfortable HD in progress no chest pain, dyspnea, palpitations, dizziness reports L knee pain no other new symptoms Review of Systems Review of Systems: all noted and negative except for above Physical Exam Physical Exam: General- oriented x 3, not in distress, speaks in sentences with no effort or accessory muscle use Eyes- anicteric Neck- no JVD Lungs- clear breath sounds bilaterally, no crackles or wheezing Heart- normal rate, regular rhythm; no murmurs Abdomen- normal bowel sounds, nondistended, soft, no tenderness Extremities- no pretibial edema, no calf tenderness Neuro- alert, oriented x 3; no gross focal neurologic deficits Skin- warm & dry Results & Data Results & Data Vital Signs (Past 12 Hours) Vital Signs Temp Pulse Pulse Pulse Resp BP BP 05/28/23 07:30 83 05/28/23 11:00 100 H 116/75 05/28/23 10:00 63 109/77 05/28/23 10:30 96 H 140/77 05/28/23 09:30 86 162/80 H 05/28/23 09:22 36.3 C L 84 05/28/23 07:50 36.5 C 80 17 05/28/23 02:48 36.4 C L 81 16 122/71 BP Pulse Ox O2 Del Method 05/28/23 07:30 05/28/23 11:00 05/28/23 10:00 05/28/23 10:30 05/28/23 09:30 05/28/23 09:22 05/28/23 07:50 131/73 93 Room Air 05/28/23 02:48 92 Room Air all noted and reviewed including below
--- NOTE | 2023-05-28 14:27 | Pharmacy Report ---
Pharmacy Glycemic Short Note 2 - Date of Service May 28, 2023 - Glycemic Short BSG Results (Last 24 hours): 05/27/23 05/27/23 05/28/23 17:08 20:07 05:00 Glucose 65 L POC Glucose 103 H 107 H 05/28/23 05/28/23 05/28/23 08:09 08:10 08:32 Glucose POC Glucose 68 L* 68 L* 83 05/28/23 13:12 Glucose POC Glucose 118 H OUTPATIENT ANTIDIABETIC REGIMEN: * Novolog 70/30 66 units AM, 56 units PM * A1c = 8.9% * However, this result is likely somewhat unreliable in ESRD patients d/t interactions between the A1c analyzing technique and high levels of urea in ESRD, reduced RBC life span, iron deficiency anemia, and EPO administration. HbA1c > 7.5% in ESRD patient may overestimate the extent of hyperglycemia in ESRD patients. ASSESSMENT: 05/28/23 * BSGs improved yesterday, but unfortunately patient with hypoglycemia this morning (BSG of 68 mg/dL) * Will give ~2/3 of yesterday's basal today and will loosen Novolog parameters * Hemodialysis today 05/25/23 * BSGs yesterday were [phone] mg/dL. Patient received 71 units of bolus insulin. NO basal insulin. * Patient is NPO and receiving a Perm cath. She is transitioning from PD to HD. * Lantus 20-30 units tonight based upon BSG. This is less than half what patient was receiving while on PD. * Loosen Novolog to reflect new lantus doses 05/24/23 * Patient's BSGs yesterday were [phone] mg/dL. Patient received 188 units of insulin (70 units of basal and 118 units of bolus). * BSGs today are 103-92 mg/dL. (Patient was in dialysis early this morning thus breakfast not given until later). * Since fasting is trending down significantly, held AM Lantus. Patient to be NPO tomorrow so plan for just 35 units of Lantus today (half of previous day's dose). Can redose tomorrow morning if necessary. * Loosen CR since patient's BSGs trending downwards today. BACKGROUND * 72-year-old female admitted with intertrochanteric fracture of left femur d/t fall out of wheelchair, PMH ESRD on PD, DM, HTN, HLD, stroke, hypothyroidism, GERD, depression, RLS. Patient minimally ambulatory at baseline, mostly uses wheelchair. * Plan for non-surgical treatment at this time. * Outpatient regimen is premixed basal/prandial insulin of NovoLog 70/30 mix insulin. * Pre-mixed insulin is difficult to titrate since it is already in a fixed distribution of basal:prandial insulin. Continuing pre-mixed insulin for admission typically lead to hypoglycemia d/t changing PO status but rapid acting insulin is unable to be held. * Patient started on basal bolus insulin last night on admission, blood sugars at goal, continue to follow and adjust to goal blood sugar. PLAN FOR INPATIENT GLYCEMIC CONTROL: * Basal insulin - decrease * Lantus 30 units SC HS * Bolus insulin - loosen * NovoLog per scale ACHS or Q6hrs while NPO * Goal Range: Low 110 mg/dL - High 140 mg/dL * Correction Factor: 20 mg/dL/unit * Nutritional / Prandial insulin per carb ratio of 1 unit per 7 grams CHO consumed
[2023-05-28] MEDS: oxyCODONE HCL IR 5 MG TAB (IMMEDIATE RELEASE) PO PRN (16:08)
--- NOTE | 2023-05-28 16:49 | XRay Report ---
XR knee LT 1 or 2V routine HISTORY: 72 years-old Female pain, fall, r/o fracture . Left knee pain COMPARISON: None TECHNIQUE: 2 views of the left knee FINDINGS: Small joint effusion. Moderate bilateral severe medial and patellofemoral compartment osteoarthritis. No acute fracture or dislocation. Mild genu varum. IMPRESSION: 1. No acute fracture or dislocation. 2. 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 3. Mild genu varum ACT 112: Negative or not required by law. The above report was generated using voice recognition software. It may contain grammatical, syntax o r spelling errors. Electronically signed by: Tolu Marie M.D. 05/28/2023 4:48 PM
--- NOTE | 2023-05-28 19:25 | Dialysis Progress Note ---
Date of Service May 28, 2023 Assessment & Plan (1) ESRD (end stage renal disease) on dialysis: Plan: now on intermittent HD via permcath and for on site HD at [facility]; will not be able to do PD at facility unfortunately and as she is non weight bearing not clear when /if she will leave facility -will need to arrange PD cath removal but until then exit site care -cont MWF HD > next HD 05/30 -chemistries, hgb acceptable >will need to arrange AVF creation after d/c (2) Intertrochanteric fracture of left femur: Plan: Kate is for conservative management, OT/PT Before discharge, Admission and Anticipated Discharge Date Admission Date: May 18, 2023 Subjective seen on HD at about 1150 AM. tolerating treatment well > no cramps, no access issues; noting severe L groin pain however. Review of Systems Review of Systems: All systems reviewed & are unremarkable except as noted in Subjective Physical Exam Constitutional: well developed and well nourished Eyes: EOM intact bilaterally ENMT: Ears: no external ear abnormality Nose: no external nose abnormality Mouth: + dry oral mucous membranes Neck: no nuchal rigidity Respiratory: normal respiratory effort Auscultation: + diminished lung sounds Cardiovascular: RRR, no murmur, no edema Gastrointestinal (Abdomen): Inspection/Auscultation: normal bowel sounds Percussion/Palpation: abdomen soft; abdomen nontender PD cath in place Musculoskeletal: Extremities: strength 5/5 throughout Skin: no rashes, warm and dry Results & Data Vital Signs (Past 12 Hours) Vital Signs Temp Pulse Pulse Pulse Pulse Resp BP 05/28/23 17:17 107 H 05/28/23 15:32 37.1 C 94 H 18 05/28/23 08:30 05/28/23 13:15 36.4 C L 102 H 05/28/23 13:16 36.4 C L 99 H 18 05/28/23 12:30 103 H 160/77 H 05/28/23 12:00 93 H 129/87 05/28/23 11:30 91 H 107/55 L 05/28/23 07:30 83 05/28/23 11:00 100 H 116/75 05/28/23 10:00 63 109/77 05/28/23 10:30 96 H 140/77 05/28/23 09:30 86 162/80 H 05/28/23 09:22 36.3 C L 84 05/28/23 07:50 36.5 C 80 17 BP BP Pulse Ox O2 Del Method 05/28/23 17:17 05/28/23 15:32 157/77 H 95 Room Air 05/28/23 08:30 Room Air 05/28/23 13:15 167/74 H 05/28/23 13:16 142/84 H 99 Room Air 05/28/23 12:30 05/28/23 12:00 05/28/23 11:30 05/28/23 07:30 05/28/23 11:00 05/28/23 10:00 05/28/23 10:30 05/28/23 09:30 05/28/23 09:22 05/28/23 07:50 131/73 93 Room Air Laboratory Results 05/28/23 05:00 05/28/23 05:00
[2023-05-28] MEDS: GABAPENTIN 600 MG TAB PO SCH (20:55)
[2023-05-28] MEDS: MIRTAZAPINE TAB 15 MG TAB PO SCH (20:55)
[2023-05-28] MEDS: rOPINIRole HCL 0.25 MG TABLET PO SCH (20:56)
[2023-05-28] MEDS ORDERED: LANTUS PER UNIT CHARGE SC SCH (21:00)
[2023-05-29] MEDS: HEPARIN SOD 5,000 UNIT/0.5 ML VIAL SQ SCH ×3 (02:34→18:05)
[2023-05-29] MEDS: oxyCODONE HCL IR 5 MG TAB (IMMEDIATE RELEASE) PO PRN ×2 (03:48→13:50)
[2023-05-29] MEDS: HYDROmorphone INJ 0.5 MG/0.5 ML SYR IV PRN (04:42)
[2023-05-29] MEDS ORDERED: FAMOTIDINE 20 MG in SYRINGE 3 ML IV ONE (05:26)
[2023-05-29] MEDS ORDERED: MAGNESIUM SULFATE / D5W 1 GM/100 ML BAG IV ONE (05:28)
[2023-05-29] MEDS ORDERED: METOPROLOL TARTRATE 1 MG/ML VIAL IV STA ×2 (05:30→06:32)
[2023-05-29] MEDS: LEVOTHYROXINE SODIUM 50 MCG TABLET PO SCH (05:48)
[2023-05-29] MEDS: ACETAMINOPHEN 500 MG TAB PO SCH ×3 (05:57→18:04)
[2023-05-29 06:02] LABS: Basophils # (auto) 0.07 K/uL (0.00-0.20); Basophils % (auto) 0.7 %; Eosinophils # (auto) 0.32 K/uL (0.00-0.50); Eosinophils % (auto) 3.1 %; Hematocrit (blood only) 27.2 % (37.0-47.0); Immature Granulocytes # (auto) 0.26 K/uL (0.01-0.20); Immature Granulocytes % (auto) 2.5 %; Lymphocytes # (auto) 1.12 K/uL (1.20-3.40); Lymphocytes % (auto) 10.9 %; Mean Corpuscular Hemoglobin 30.9 pg (25.0-34.0); Mean Corpuscular Hgb Conc 33.1 g/dL (32.0-36.0); Mean Corpuscular Volume 93.5 fL (80.0-100.0); Mean Platelet Volume 9.8 fL (9.4-12.4); Monocytes % (auto) 10.7 %; Neutrophils # (auto) 7.39 K/uL (1.40-6.50); Neutrophils % (auto) 72.1 %; Nucleated RBC # (auto) 0.03 K/uL (0.00-0.12); Nucleated RBC % (auto) 0.3 %; Platelet Count 276 K/uL (130-400); RDW Coefficient of Variation 13.2 % (11.5-14.5); RDW Standard Deviation 44.8 fL (36.4-46.3); Red Blood Count 2.91 M/uL (4.20-5.40); White Blood Count 10.26 K/ul (4.8-10.8)
[2023-05-29 06:27] LABS: Albumin Level 3.2 gm/dl (3.4-5.0); Calcium 9.2 mg/dl (8.6-10.3); Creatinine Clr Calc Pharmacy 18.9 ml/min; Est GFR (African American) 16.6 ml/min; Est GFR (Non-African American) 14.3 ml/min; Phosphorus 3.3 mg/dl (2.5-4.9); Potassium 4.4 mmol/L (3.5-5.1)
[2023-05-29 07:04] LABS: Partial Thromboplastin Time 28.5 Seconds (21.0-31.0)
[2023-05-29] MEDS: BUMETANIDE 1 MG TAB PO SCH ×2 (08:07→18:01)
[2023-05-29] MEDS: PANTOprazole 40 MG TAB PO SCH (08:07)
[2023-05-29] MEDS: METOPROLOL SUCC 50MG EXT REL TAB PO SCH (08:07)
[2023-05-29] MEDS: ISOSORBIDE MONO EXTENDED REL 30 MG TABCR PO SCH (08:07)
[2023-05-29] MEDS: CLOPIDOGREL BISULFATE 75 MG TAB PO SCH (08:07)
[2023-05-29] MEDS: SEVELAMER HCL 800 MG TABLET PO SCH ×3 (08:07→18:01)
[2023-05-29] MEDS: GABAPENTIN 300 MG CAP PO SCH (08:07)
[2023-05-29] MEDS: oxyBUTYnin chloride 5 MG TAB PO SCH (08:08)
[2023-05-29] MEDS: CHOLECALCIFEROL 5,000 UNITS 125 MCG TAB PO SCH (08:08)
[2023-05-29] MEDS: ASPIRIN 81 MG ECTAB PO SCH (08:08)
[2023-05-29] MEDS: amLODIPine BESYLATE 5 MG TAB PO SCH (08:08)
[2023-05-29] MEDS: DULoxetine HCL 20 MG CAP PO SCH (08:08)
[2023-05-29] MEDS: ATORVASTATIN 40 MG TAB PO SCH (08:08)
[2023-05-29] MEDS ORDERED: LANTUS PER UNIT CHARGE SC SCH (09:00)
[2023-05-29] MEDS: DOCUSATE SODIUM 100 MG CAP PO SCH ×2 (09:06→21:35)
[2023-05-29] MEDS: INSULIN ASPART PER UNIT CHARGE SC SCH ×4 (09:12→21:34)
--- NOTE | 2023-05-29 09:30 | XRay Report ---
XR chest 1V portable HISTORY: 72 years-old Female possible aspiration acute shortness of breath COMPARISON: 05/18/2023 TECHNIQUE: AP view of the chest FINDINGS: Cardiomediastinal and hilar silhouettes are within normal limits. Right IJ dual-lumen hemodialysis ca theter is noted with distal tip in the expected location of the mid SVC. No pneumothorax, pleural eff usion or overt pulmonary edema. There is mild chronic interstitial coarsening. Bones appear grossly i ntact. IMPRESSION: No acute process of the chest. ACT 112: Negative or not required by law. The above report was generated using voice recognition software. It may contain grammatical, syntax o r spelling errors. Electronically signed by: Tolu Marie M.D. 05/29/2023 9:28 AM
[2023-05-29] MEDS ORDERED: ACETAMINOPHEN 1,000 MG/100 ML VIAL IV STA (10:09)
--- NOTE | 2023-05-29 13:04 | Nephrology Progress Note ---
Date of Service May 29, 2023 Assessment & Plan (1) ESRD (end stage renal disease) on dialysis: Plan: now on intermittent HD via permcath and for on site HD at Care; will not be able to do PD at facility unfortunately and as she is non weight bearing not clear when /if she will leave facility -will need to arrange PD cath removal but until then exit site care > will see if we can remove before d/c feasibly -cont MWF HD > next HD 05/30 -chemistries, hgb acceptable >will need to arrange AVF creation after d/c care coordinated w/ dr valderrama (2) Intertrochanteric fracture of left femur: Plan: Kate is for conservative management, OT/PT Before discharge, Admission and Anticipated Discharge Date Admission Date: May 18, 2023 Subjective pt reports d/c deferred today d/t worsening N/V. states she's NPO, though lunch tray delivered. no abd pain at time of my eval. no sob. Review of Systems Review of Systems: All systems reviewed & are unremarkable except as noted in Subjective Physical Exam Constitutional: well developed and well nourished Eyes: EOM intact bilaterally ENMT: Ears: no external ear abnormality Nose: no external nose abnormality Mouth: + dry oral mucous membranes Neck: no nuchal rigidity Respiratory: normal respiratory effort (on 02nc today) Auscultation: + diminished lung sounds Cardiovascular: RRR, no murmur, no edema Gastrointestinal (Abdomen): Inspection/Auscultation: normal bowel sounds Percussion/Palpation: abdomen soft; abdomen nontender Musculoskeletal: Extremities: strength 5/5 throughout Skin: no rashes, warm and dry Results & Data Vital Signs (Past 12 Hours) Vital Signs Temp Pulse Pulse Pulse Resp BP BP 05/29/23 12:05 36.4 C L 96 H 20 05/29/23 08:57 05/29/23 10:03 36.7 C 105 H 24 05/29/23 08:12 36.5 C 102 H 20 05/29/23 08:06 100 H 140/85 05/29/23 07:00 125 H 05/29/23 06:38 126 H 140/85 05/29/23 06:10 123 H 152/88 H 05/29/23 05:46 136 H 126/83 05/29/23 03:44 118 H 134/85 05/29/23 02:39 36.6 C 119 H 16 153/86 H BP Pulse Ox O2 Del Method O2 Flow Rate 05/29/23 12:05 115/68 93 Nasal Cannula 4 05/29/23 08:57 Room Air 2 05/29/23 10:03 121/66 92 Nasal Cannula 2 05/29/23 08:12 139/69 97 Nasal Cannula 2 05/29/23 08:06 05/29/23 07:00 05/29/23 06:38 05/29/23 06:10 05/29/23 05:46 05/29/23 03:44 95 Room Air 05/29/23 02:39 94 Room Air Laboratory Results 05/29/23 05:23 05/29/23 05:23
--- NOTE | 2023-05-29 15:00 | Pharmacy Report ---
Pharmacy Glycemic Short Note 2 - Date of Service May 29, 2023 - Glycemic Short BSG Results (Last 24 hours): 05/28/23 05/28/23 05/29/23 16:59 20:15 05:23 Glucose 192 H POC Glucose 180 H 200 H 05/29/23 05/29/23 07:53 12:27 Glucose POC Glucose 184 H 182 H OUTPATIENT ANTIDIABETIC REGIMEN: * Novolog /30 66 units AM, 56 units PM * A1c = 8.9% * However, this result is likely somewhat unreliable in ESRD patients d/t interactions between the A1c analyzing technique and high levels of urea in ESRD, reduced RBC life span, iron deficiency anemia, and EPO administration. HbA1c > 7.5% in ESRD patient may overestimate the extent of hyperglycemia in ESRD patients. ASSESSMENT: 05/29/23 * Mai received 48 units of insulin yesterday (30 units Lantus + 18 units Novolog) * Fasting BSG 184 mg/dL. Of note, basal insulin was significantly decreased yesterday. Lantus 45 units daily appears to be too much and 30 units likely not enough, therefore I will aim ~36 units/day (18 units BID for easier titration). * Tighten Novolog correction factor. 05/28/23 * BSGs improved yesterday, but unfortunately patient with hypoglycemia this morning (BSG of 68 mg/dL) * Will give ~2/3 of yesterday's basal today and will loosen Novolog parameters * Hemodialysis today 05/25/23 * BSGs yesterday were [phone] mg/dL. Patient received 71 units of bolus insulin. NO basal insulin. * Patient is NPO and receiving a Perm cath. She is transitioning from PD to HD. * Lantus 20-30 units tonight based upon BSG. This is less than half what patient was receiving while on PD. * Loosen Novolog to reflect new lantus doses 05/24/23 * Patient's BSGs yesterday were [phone] mg/dL. Patient received 188 units of insulin (70 units of basal and 118 units of bolus). * BSGs today are 103-92 mg/dL. (Patient was in dialysis early this morning thus breakfast not given until later). * Since fasting is trending down significantly, held AM Lantus. Patient to be NPO tomorrow so plan for just 35 units of Lantus today (half of previous day's dose). Can redose tomorrow morning if necessary. * Loosen CR since patient's BSGs trending downwards today. BACKGROUND * 72-year-old female admitted with intertrochanteric fracture of left femur d/t fall out of wheelchair, PMH ESRD on PD, DM, HTN, HLD, stroke, hypothyroidism, GERD, depression, RLS. Patient minimally ambulatory at baseline, mostly uses wheelchair. * Plan for non-surgical treatment at this time. * Outpatient regimen is premixed basal/prandial insulin of NovoLog 70/30 mix insulin. * Pre-mixed insulin is difficult to titrate since it is already in a fixed distribution of basal:prandial insulin. Continuing pre-mixed insulin for admission typically lead to hypoglycemia d/t changing PO status but rapid acting insulin is unable to be held. * Patient started on basal bolus insulin last night on admission, blood sugars at goal, continue to follow and adjust to goal blood sugar. PLAN FOR INPATIENT GLYCEMIC CONTROL: * Basal insulin * Lantus 18 units SC BID (15 units for BSG <100 or NPO) * Bolus insulin * NovoLog per scale ACHS or Q6hrs while NPO * Goal Range: Low 110 mg/dL - High 140 mg/dL * Correction Factor: 15 mg/dL/unit * Nutritional / Prandial insulin per carb ratio of 1 unit per 7 grams CHO consumed
--- NOTE | 2023-05-29 15:26 | Fluoroscopy Report ---
MODIFIED BARIUM SWALLOW CLINICAL HISTORY: r/o aspiration COMPARISON STUDY: None. FLUOROSCOPY TIME: 2.24 minutes. Ka, r: 15.9 mGy. TECHNIQUE: A modified barium swallow was performed in conjunction with Speech Pathology. The patient ingested varying consistencies of barium containing material. Video fluoroscopy was performed. FINDINGS: No tracheal aspiration was identified with thin liquids, nectar thick liquids, pudding or c racker and pudding consistencies. Delayed initiation of swallowing mechanism was noted. Epiglottic in version was normal. Laryngeal elevation was normal. IMPRESSION: 1. No tracheal aspiration identified. 2. Full recommendations by Speech pathology to follow. ACT 112: Negative or not required by law. Electronically signed by: Pacheco Culver M.D. 05/29/2023 3:24 PM
--- NOTE | 2023-05-29 15:49 | Electrocardiogram Report ---
Test Reason : Blood Pressure : / mmHG Vent. Rate : 135 BPM Atrial Rate : 135 BPM P-R Int : 136 ms QRS Dur : 092 ms QT Int : 324 ms P-R-T Axes : 000 -05 098 degrees QTc Int : 486 ms Sinus tachycardia Abnormal ECG When compared with ECG of 19-MAY-2023 05:16, Vent. rate has increased BY 62 BPM T wave inversion more evident in Lateral leads Confirmed by Edward Nicole ([id number]) on 05/29/2023 3:49:41 PM Referred By: REFERRED SELF Confirmed By:Edward Nicole
--- NOTE | 2023-05-29 15:54 | Electrocardiogram Report ---
Test Reason : Blood Pressure : / mmHG Vent. Rate : 093 BPM Atrial Rate : 093 BPM P-R Int : 166 ms QRS Dur : 084 ms QT Int : 376 ms P-R-T Axes : 060 012 091 degrees QTc Int : 467 ms Normal sinus rhythm Nonspecific ST and T wave abnormality Abnormal ECG When compared with ECG of 29-MAY-2023 05:30, (unconfirmed) T wave inversion less evident in Lateral leads Confirmed by Edward Nicole ([id number]) on 05/29/2023 3:54:33 PM Referred By: REFERRED SELF Confirmed By:Edward Nicole
--- NOTE | 2023-05-29 15:59 | Electrocardiogram Report ---
Test Reason : Blood Pressure : / mmHG Vent. Rate : 094 BPM Atrial Rate : 094 BPM P-R Int : 160 ms QRS Dur : 086 ms QT Int : 378 ms P-R-T Axes : 055 011 100 degrees QTc Int : 472 ms Normal sinus rhythm Nonspecific ST and T wave abnormality Abnormal ECG When compared with ECG of 29-MAY-2023 10:13, (unconfirmed) No significant change was found Confirmed by Edward Nicole ([id number]) on 05/29/2023 3:59:00 PM Referred By: REFERRED SELF Confirmed By:Edward Nicole
--- NOTE | 2023-05-29 17:20 | Hospitalist Progress Note ---
Date of Service May 29, 2023 Assessment & Plan (1) Fall: Plan: (1) Fall: (2) Intertrochanteric fracture of left femur: Plan: Patient is 72-year-old female with PMH ESRD on PD, insulin-dependent diabetes, HTN, HLD, stroke, hypothyroidism, GERD, depression, RLS presented to ER with complaint of falling out of wheelchair and left hip pain. Minimally ambulatory at baseline, mostly uses wheelchair Hip x-ray: Mildly displaced left femoral intertrochanteric fracture Knee xray: No acute fractures, tricompartmental osteoarthritis, severe within the medial and patellofemoral compartments. Orthopedics evaluated patient and feels patient high surgical risk and with current minimal baseline ambulation likely will not be surgical candidate. 05/29 Continue pain management As needed Dilaudid and oxycodone Continue PT and OT (3) End stage renal disease: Plan: ESRD on PD Continue renal meds, Bumex As per nephrology, patient to be transition to hemodialysis for placement at rehab. Vascular surgery has been consulted. Nephro managing PD s/p permcath placement to transition to HD as outpatient For HD Sunday PD cath removal on or Sunday per Dr. Pretty Aspiration event May 29, 2023 Chest x-ray: No acute infiltrates or effusion Speech therapy evaluation with video swallow: No arnie aspiration noted Advised patient regarding aspiration precautions Supervised with her meal tonight Wean off oxygen currently (4) DM type 2 (diabetes mellitus, type 2): Plan: Insulin-dependent diabetes A1c: 10 on 12/25/2022 Hold home NovoLog 70/30 Basal bolus insulin per protocol Glycemic pharmacy consult A1c of 8.4% (5) History of stroke: Plan: Continue aspirin, Plavix, atorvastatin. (6) Hypertension: Plan: Continue amlodipine, metoprolol succinate, isosorbide (7) Hyperlipidemia: Plan: Continue atorvastatin (8) Hypothyroid: Plan: Continue levothyroxine (9) GERD (gastroesophageal reflux disease): Plan: Continue PPI (10) Depression: Plan: Continue home meds DVT Prophylaxis heparin DNR/DNI. Disposition Transition to [facility] after PD cath removal Admission and Anticipated Discharge Date Admission Date: May 18, 2023 Subjective Follow-up for status post fall, hip fracture, etc. Notified by RN as patient had an aspiration event Seen resting in bed, on 2 L of oxygen, coughing with crackles noted Patient requiring deep suctioning Initially improved but worsened again Deep suctioning repeated, recovering copious amount of previously ingested food Patient seemed clinically improved after this Required 4 L of oxygen but was able to be weaned down to 2 Reevaluated around noon time, patient is much better, smiling, states she feels much better, denies shortness of breath or chest pain No other new symptoms Review of Systems Review of Systems: all noted and negative except for above Physical Exam Physical Exam: General- oriented x 3, not in distress, speaks in sentences with no effort or accessory muscle use Eyes- anicteric Neck- no JVD Lungs- clear breath sounds bilaterally, no rales/wheezes Heart- normal rate, regular rhythm; no murmurs Abdomen- normal bowel sounds, nondistended, soft, nontender Extremities- no pretibial edema, no calf tenderness Neuro- alert, oriented x 3; no gross focal neurologic deficits Skin- warm & dry Results & Data Results & Data Vital Signs (Past 12 Hours) Vital Signs Temp Pulse Pulse Resp BP BP Pulse Ox 05/29/23 15:16 36.4 C L 95 H 20 146/78 H 100 05/29/23 15:00 90 05/29/23 13:46 36.3 C L 90 18 140/72 99 05/29/23 12:05 36.4 C L 96 H 20 115/68 93 05/29/23 08:57 05/29/23 10:03 36.7 C 105 H 24 121/66 92 05/29/23 08:12 36.5 C 102 H 20 139/69 97 05/29/23 08:06 100 H 140/85 05/29/23 07:00 125 H 05/29/23 06:38 126 H 140/85 05/29/23 06:10 123 H 152/88 H 05/29/23 05:46 136 H 126/83 O2 Del Method O2 Flow Rate 05/29/23 15:16 Nasal Cannula 2 05/29/23 15:00 05/29/23 13:46 Nasal Cannula 4 05/29/23 12:05 Nasal Cannula 4 05/29/23 08:57 Room Air 2 05/29/23 10:03 Nasal Cannula 2 05/29/23 08:12 Nasal Cannula 2 05/29/23 08:06 05/29/23 07:00 05/29/23 06:38 05/29/23 06:10 05/29/23 05:46 all noted and reviewed including below
[2023-05-29] MEDS: LANTUS PER UNIT CHARGE SC SCH (21:34)
[2023-05-29] MEDS: MIRTAZAPINE TAB 15 MG TAB PO SCH ×2 (21:35→22:05)
[2023-05-29] MEDS: rOPINIRole HCL 0.25 MG TABLET PO SCH (21:35)
[2023-05-29] MEDS: GABAPENTIN 600 MG TAB PO SCH ×2 (21:36→22:05)
[2023-05-30] MEDS: ACETAMINOPHEN 500 MG TAB PO SCH ×4 (00:29→17:34)
[2023-05-30] MEDS: HEPARIN SOD 5,000 UNIT/0.5 ML VIAL SQ SCH ×3 (01:46→17:26)
[2023-05-30] MEDS: LEVOTHYROXINE SODIUM 50 MCG TABLET PO SCH (05:55)
[2023-05-30] MEDS ORDERED: HEPARIN SOD (PORCINE) 1000 UNIT/ML IV ONE (07:52)
[2023-05-30] MEDS ORDERED: SODIUM CHLORIDE 0.9% 1,000 ML IV PRN (07:52)
[2023-05-30] MEDS: BUMETANIDE 1 MG TAB PO SCH ×2 (08:00→16:18)
[2023-05-30] MEDS: CHOLECALCIFEROL 5,000 UNITS 125 MCG TAB PO SCH (08:00)
[2023-05-30] MEDS ORDERED: EPOETIN ALFA 10,000 UNITS/ML VIAL IV ONE (08:00)
[2023-05-30] MEDS: GABAPENTIN 300 MG CAP PO SCH ×3 (08:00→13:36)
[2023-05-30] MEDS: oxyBUTYnin chloride 5 MG TAB PO SCH (08:00)
[2023-05-30] MEDS: ATORVASTATIN 40 MG TAB PO SCH (08:00)
[2023-05-30] MEDS: PANTOprazole 40 MG TAB PO SCH (08:00)
[2023-05-30] MEDS: CLOPIDOGREL BISULFATE 75 MG TAB PO SCH (08:01)
[2023-05-30] MEDS: DULoxetine HCL 20 MG CAP PO SCH (08:01)
[2023-05-30] MEDS: ASPIRIN 81 MG ECTAB PO SCH (08:01)
[2023-05-30] MEDS: SEVELAMER HCL 800 MG TABLET PO SCH ×3 (08:01→17:25)
[2023-05-30] MEDS: INSULIN ASPART PER UNIT CHARGE SC SCH ×4 (08:41→21:24)
[2023-05-30] MEDS: LANTUS PER UNIT CHARGE SC SCH ×2 (08:44→21:25)
--- NOTE | 2023-05-30 09:48 | Hospitalist Progress Note ---
Date of Service May 30, 2023 Assessment & Plan (1) Fall: Plan: (1) Fall: (2) Intertrochanteric fracture of left femur: Plan: Patient is 72-year-old female with PMH ESRD on PD, insulin-dependent diabetes, HTN, HLD, stroke, hypothyroidism, GERD, depression, RLS presented to ER with complaint of falling out of wheelchair and left hip pain. Minimally ambulatory at baseline, mostly uses wheelchair Hip x-ray: Mildly displaced left femoral intertrochanteric fracture Knee xray: No acute fractures, tricompartmental osteoarthritis, severe within the medial and patellofemoral compartments. Orthopedics evaluated patient and feels patient high surgical risk and with current minimal baseline ambulation likely will not be surgical candidate. 05/29 Continue pain management As needed Dilaudid and oxycodone Continue PT and OT (3) End stage renal disease: Plan: ESRD on PD Continue renal meds, Bumex As per nephrology, patient to be transition to hemodialysis for placement at rehab. Vascular surgery has been consulted. Nephro managing PD s/p permcath placement to transition to HD as outpatient For HD Sunday PD cath removal on or Sunday per Dr. Womack Aspiration event May 29, 2023 Chest x-ray: No acute infiltrates or effusion Speech therapy evaluation with video swallow: No arnie aspiration noted Advised patient regarding aspiration precautions Supervised with her meal Weaned off oxygen currently on RA Depression - pt reported to staff incr. feelings of depression and would like eval by psychiatry - psych consulted (4) DM type 2 (diabetes mellitus, type 2): Plan: Insulin-dependent diabetes A1c: 10 on 12/25/2022 Hold home NovoLog 70/30 Basal bolus insulin per protocol Glycemic pharmacy consult A1c of 8.4% (5) History of stroke: Plan: Continue aspirin, Plavix, atorvastatin. (6) Hypertension: Plan: Continue amlodipine, metoprolol succinate, isosorbide (7) Hyperlipidemia: Plan: Continue atorvastatin (8) Hypothyroid: Plan: Continue levothyroxine (9) GERD (gastroesophageal reflux disease): Plan: Continue PPI (10) Depression: Plan: Continue home meds DVT Prophylaxis heparin DNR/DNI. Disposition Transition to [facility] after PD cath removal Admission and Anticipated Discharge Date Admission Date: May 18, 2023 Subjective Follow-up for status post fall, hip fracture, hx of ESRD on PD/HD Yesterday pt had an aspiration event Currently feels well, but appears tired - reported to nursing staff that she feels depressed and would like to talk to psych Required deep suctioning after aspiration. Pt reports she feels that she possibly vomited when it happened. Patient seemed clinically improved after this Currently on RA denies shortness of breath or chest pain denies any abd. pain Plan to removed PD catheter Review of Systems Review of Systems: All systems reviewed & are unremarkable except as noted in Subjective Physical Exam Physical Exam: General- WD/WN F in NAD oriented x 3, not in distress, speaks in sentences with no effort or accessory muscle use Eyes- anicteric Neck- no JVD Lungs- clear breath sounds bilaterally, no rales/wheezes Heart- +tachycardic ; no murmurs Abdomen- normal bowel sounds, nondistended, soft, nontender Extremities- no pretibial edema, no calf tenderness Neuro- alert, oriented x 3; speech slow but fluent, answers appropriately, appears tired, moves extremities Skin- warm & dry Results & Data Results & Data Vital Signs (Past 12 Hours) Vital Signs Temp Pulse Pulse Pulse Resp BP Pulse Ox 05/30/23 08:00 98 H 05/30/23 07:28 36.4 C L 95 H 20 165/78 H 95 05/30/23 04:00 36.6 C 92 H 18 132/80 94 05/29/23 22:01 90 05/29/23 22:00 36.7 C 88 18 125/76 98 O2 Del Method O2 Flow Rate 05/30/23 08:00 05/30/23 07:28 Room Air 05/30/23 04:00 Room Air 05/29/23 22:01 05/29/23 22:00 Nasal Cannula 2 Laboratory Results 05/30/23 05/29/23 05/29/23 Range/Units 08:02 22:00 19:52 POC Glucose 140 H 142 H 148 H (70-99) mg/dl 05/29/23 05/29/23 Range/Units 17:01 12:27 POC Glucose 157 H 182 H (70-99) mg/dl Medications Administered Current Inpatient Medications Acetaminophen (Acetaminophen 500 Mg Tab) 500 mg PO Q6H [facility] Stop: 06/20/23 11:29 Last Admin: 05/30/23 05:54 Dose: 500 mg Amlodipine Besylate (Amlodipine Besylate 5 Mg Tab) 10 mg PO DAILY [facility] Stop: 06/18/23 08:59 Last Admin: 05/29/23 08:08 Dose: 10 mg Aspirin (Aspirin 81 Mg Ectab) 81 mg PO DAILY [facility] Stop: 06/18/23 08:59 Last Admin: 05/30/23 08:01 Dose: 81 mg Atorvastatin Calcium (Atorvastatin 40 Mg Tab) 40 mg PO DAILY [facility] Stop: 06/18/23 08:59 Last Admin: 05/30/23 08:00 Dose: 40 mg Bisacodyl (Bisacodyl 10 Mg Supp) 10 mg VA DAILY PRN PRN Reason: Constipation Stop: 06/17/23 17:47 Bumetanide (Bumetanide 1 Mg Tab) 4 mg PO BID17 [facility] Stop: 06/18/23 08:59 Last Admin: 05/30/23 08:00 Dose: 4 mg Clopidogrel Bisulfate (Clopidogrel Bisulfate 75 Mg Tab) 75 mg PO QAM [facility] Stop: 06/18/23 08:59 Last Admin: 05/30/23 08:01 Dose: 75 mg Dextrose (Dextrose 50% 50 Ml Syringe) 25 - 50 ml IV UD PRN; Protocol PRN Reason: Hypoglycemia Protocol Stop: 06/17/23 18:16 Docusate Sodium (Docusate Sodium 100 Mg Cap) 100 mg PO BID [facility] Stop: 06/17/23 20:59 Last Admin: 05/29/23 21:35 Dose: 100 mg Duloxetine HCl (Duloxetine Hcl 20 Mg Cap) 20 mg PO DAILY [facility] Stop: 06/18/23 08:59 Last Admin: 05/30/23 08:01 Dose: 20 mg Gabapentin (Gabapentin 300 Mg Cap) 300 mg PO QAM [facility] Stop: 06/18/23 08:59 Last Admin: 05/30/23 08:06 Dose: Not Given Gabapentin (Gabapentin 600 Mg Tab) 600 mg PO QPM [facility] Stop: 06/17/23 20:59 Last Admin: 05/29/23 22:05 Dose: Not Given Glucagon (Glucagon For Inj 1 Mg Vial) 1 mg SQ UD PRN; Protocol PRN Reason: Hypoglycemia Protocol Stop: 06/17/23 18:16 Glucose (Glucose 10 Tab/Tube) 4 - 8 tab PO UD PRN; Protocol PRN Reason: Hypoglycemia Treatment Stop: 06/17/23 18:16 Glucose (Glucose 40% Gel 15 Gm Tube) 15 - 30 gm PO UD PRN; Protocol PRN Reason: Hypoglycemia Protocol Stop: 06/17/23 18:16 Heparin Sodium (Porcine) (Heparin Sod 5,000 Unit/0.5 Ml Vial) 5,000 units SQ Q8H [facility] Stop: 06/25/23 01:29 Last Admin: 05/30/23 01:46 Dose: 5,000 units Heparin Sodium (Porcine) (Heparin Sod (Porcine) 1000 Unit/Ml) 400 units IV Q1H [facility] Stop: 05/30/23 10:01 Hydromorphone HCl (Hydromorphone Inj 0.5 Mg/0.5 Ml Syr) 0.5 mg IV Q4H PRN PRN Reason: Mod-Sev Pain (Scale 4-10) Stop: 06/01/23 17:47 Last Admin: 05/29/23 04:42 Dose: 0.5 mg Sodium Chloride (Nss) 1,000 mls @ 0 mls/hr IV .Q0M PRN PRN Reason: For Hemodialysis Use ONLY Stop: 05/30/23 13:51 Cefazolin Sodium (Ancef 2000mg) 2,000 mg in 15 mls @ 3.75 mls/min IV PREOP [facility]; Protocol Stop: 05/31/23 18:00 Insulin Aspart (Insulin Aspart Per Unit Charge) 0 units SC ACHS [facility]; Protocol Stop: 06/24/23 00:00 Last Admin: 05/30/23 08:41 Dose: Not Given Insulin Glargine (Lantus Per Unit Charge) 0 units SC BID [facility]; Protocol Stop: 06/28/23 20:59 Last Admin: 05/30/23 08:44 Dose: 18 units Isosorbide Mononitrate (Isosorbide Marin Extended Rel 30 Mg Tabcr) 30 mg PO QAM [facility] Stop: 06/18/23 08:59 Last Admin: 05/29/23 08:07 Dose: 30 mg Levothyroxine Sodium (Levothyroxine Sodium 50 Mcg Tablet) 50 mcg PO DAILYBB [facility] Stop: 06/18/23 06:29 Last Admin: 05/30/23 05:55 Dose: 50 mcg Magnesium Hydroxide (Magnesium Hydroxide Susp 30 Ml Udc) 30 ml PO DAILY PRN PRN Reason: Constipation Stop: 06/17/23 17:47 Last Admin: 05/27/23 20:14 Dose: 30 ml Melatonin (Melatonin 3 Mg Tab) 9 mg PO HS PRN PRN Reason: Sleep Stop: 06/17/23 18:27 Metoprolol Succinate (Metoprolol Succ 50mg Ext Rel Tab) 50 mg PO DAILY [facility] Stop: 06/18/23 08:59 Last Admin: 05/29/23 08:07 Dose: 50 mg Mirtazapine (Mirtazapine Tab 15 Mg Tab) 15 mg PO HS [facility] Stop: 06/17/23 20:59 Last Admin: 05/29/23 22:05 Dose: Not Given Miscellaneous (Carbohydrates For Hypoglycemia ) 15 - 30 gm PO UD PRN PRN Reason: Hypoglycemia Protocol Stop: 06/17/23 18:16 Last Admin: 05/28/23 08:17 Dose: 15 gm Miscellaneous Information (Pharmacy Glycemic Mgmt Consult) 1 each N/A UD PRN PRN Reason: Consult Stop: 06/17/23 18:16 Naloxone HCl (Naloxone Hcl 0.4 Mg/1 Ml Vial/Carp) 0.1 mg IV UD PRN PRN Reason: Opiate Overdose Stop: 06/17/23 17:47 Ondansetron HCl (Ondansetron Inj 2 Mg/Ml 2 Ml Vial) 4 mg IV Q6H PRN PRN Reason: Nausea Stop: 06/17/23 17:47 Oxybutynin Chloride (Oxybutynin Chloride 5 Mg Tab) 2.5 mg PO DAILY [facility] Stop: 06/18/23 08:59 Last Admin: 05/30/23 08:00 Dose: 2.5 mg Oxycodone HCl (Oxycodone Hcl Ir 5 Mg Tab (Immediate Release)) 5 mg PO Q6H PRN PRN Reason: moderate to severe pain Stop: 06/11/23 15:20 Last Admin: 05/29/23 13:50 Dose: 5 mg Pantoprazole Sodium (Pantoprazole 40 Mg Tab) 40 mg PO DAILY [facility] Stop: 06/18/23 08:59 Last Admin: 05/30/23 08:00 Dose: 40 mg Polyethylene Glycol (Polyethylene (Miralax) 17 Gm Pack) 17 gm PO DAILY PRN PRN Reason: Constipation Stop: 06/17/23 17:47 Last Admin: 05/27/23 09:19 Dose: 17 gm Ropinirole HCl (Ropinirole Hcl 0.25 Mg Tablet) 0.25 mg PO HS [facility] Stop: 06/17/23 20:59 Last Admin: 05/29/23 21:35 Dose: 0.25 mg Sevelamer HCl (Sevelamer Hcl 800 Mg Tablet) 800 mg PO TIDM [facility] Stop: 06/18/23 07:59 Last Admin: 05/30/23 08:01 Dose: 800 mg Vitamin D (Cholecalciferol 5,000 Units 125 Mcg Tab) 5,000 units PO DAILY [facility] Stop: 06/18/23 08:59 Last Admin: 05/30/23 08:00 Dose: 5,000 units
[2023-05-30] MEDS: oxyCODONE HCL IR 5 MG TAB (IMMEDIATE RELEASE) PO PRN (10:52)
[2023-05-30] MEDS: HEPARIN SOD (PORCINE) 1000 UNIT/ML IV SCH ×2 (12:11→12:12)
[2023-05-30] MEDS: amLODIPine BESYLATE 5 MG TAB PO SCH (13:36)
[2023-05-30] MEDS: METOPROLOL SUCC 50MG EXT REL TAB PO SCH (13:36)
[2023-05-30] MEDS: ISOSORBIDE MONO EXTENDED REL 30 MG TABCR PO SCH (13:36)
[2023-05-30] MEDS: DOCUSATE SODIUM 100 MG CAP PO SCH ×2 (13:52→21:25)
--- NOTE | 2023-05-30 13:59 | Communication Note ---
Date of Service: May 30, 2023 Patient for CAPD catheter removal tomorrow. I have discussed the risks options and benefits of the procedure with the patient. The patient understands the risks options and benefits and agrees to the procedure.
--- NOTE | 2023-05-30 16:12 | Communication Note ---
Date of Service: May 30, 2023 consult received, chart reviewed. Patient is a 72-year-old female with complicated hx of ESRD (Cr>6 earlier in stay, now 3.12), hyponatremia (low 127 on 05/21, now 133), insulin-dependent diabetes, HTN, HLD, stroke, hypothyroidism, GERD, depression, and RLS initially presented to ER with complaint of fall. Patient has expressed feeling like a burden to family, etc. Will ask liaison to round to provide support and collect additional history. Acute interventions with psychiatric medications are limited by renal impairment, resolving hyponatremia. Will need to confirm if Cymbalta for pain or depression. hx of Remeron rx in surescripts form March 2023. Would not advise given BMI, etc. Liaison consult may be sufficient for patient needs, otherwise will complete consult within next 24 hrs.
[2023-05-30] MEDS ORDERED: SODIUM CHLORIDE 0.9% 250 ML IV SCH (16:15)
[2023-05-30 16:23] LABS: Hematocrit (blood only) 29.4 % (37.0-47.0); Hemoglobin 9.7 g/dl (12.0-16.0); Mean Corpuscular Hemoglobin 30.9 pg (25.0-34.0); Mean Corpuscular Volume 93.6 fL (80.0-100.0); Mean Platelet Volume 9.6 fL (9.4-12.4); Nucleated RBC # (auto) 0.03 K/uL (0.00-0.12); Nucleated RBC % (auto) 0.2 %; Platelet Count 279 K/uL (130-400); RDW Standard Deviation 43.8 fL (36.4-46.3); Red Blood Count 3.14 M/uL (4.20-5.40); White Blood Count 13.62 K/ul (4.8-10.8)
[2023-05-30 17:05] LABS: BUN Creatinine Ratio 12.3 (10-20); Calcium 9.3 mg/dl (8.6-10.3); Est GFR (African American) 25.4 ml/min; Magnesium 1.9 mg/dl (1.7-2.4); Phosphorus 2.2 mg/dl (2.5-4.9); Potassium 3.7 mmol/L (3.5-5.1)
[2023-05-30] MEDS: AMOXICILLIN/CLAVULANATE 500 MG TAB PO SCH (17:25)
--- NOTE | 2023-05-30 17:52 | Dialysis Progress Note ---
Date of Service May 30, 2023 Assessment & Plan (1) ESRD (end stage renal disease) on dialysis: Plan: now on intermittent HD via permcath and for on site HD at Care; will not be able to do PD at facility unfortunately and as she is non weight bearing not clear when /if she will leave facility -will need to arrange PD cath removal but until then exit site care > will see if we can remove before d/c feasibly -cont MWF HD > next HD 06/01 -chemistries, hgb acceptable >will need to arrange AVF creation after d/c pt after tx today had worse tachycardia to 120-130s >> d/w Dr Durand; <500 mL NS ok as trial care coordinated w/ dr durand Admission and Anticipated Discharge Date Admission Date: May 18, 2023 Subjective doing much better than yesterday > on RA now, and back on diet; no sob; some cramping . seen on dialysis. ongoing L groin pain Review of Systems Review of Systems: All systems reviewed & are unremarkable except as noted in Subjective Physical Exam Constitutional: well developed and well nourished Eyes: EOM intact bilaterally ENMT: Ears: no external ear abnormality Nose: no external nose abnormality Mouth: + dry oral mucous membranes Neck: no nuchal rigidity Respiratory: normal respiratory effort Auscultation: + diminished lung sounds Gastrointestinal (Abdomen): Inspection/Auscultation: normal bowel sounds Percussion/Palpation: abdomen soft; abdomen nontender Musculoskeletal: Extremities: strength 5/5 throughout Skin: no rashes, warm and dry Neurologic: babcock, fluent speech, no tremor Results & Data Vital Signs (Past 12 Hours) Vital Signs Temp Pulse Pulse Pulse Resp BP BP 05/30/23 15:29 124 H 05/30/23 15:14 37.2 C 120 H 20 131/68 05/30/23 15:22 37.2 C 125 H 18 05/30/23 12:50 36.5 C 106 H 05/30/23 12:30 101 H 125/60 05/30/23 12:00 102 H 122/51 L 05/30/23 11:30 103 H 136/67 05/30/23 11:00 109 H 124/59 L 05/30/23 10:30 110 H 138/68 05/30/23 10:00 107 H 115/60 05/30/23 09:30 101 H 144/75 H 05/30/23 09:15 99 H 165/88 H 05/30/23 09:05 36.5 C 104 H 05/30/23 10:00 05/30/23 08:00 98 H 05/30/23 07:28 36.4 C L 95 H 20 165/78 H BP Pulse Ox O2 Del Method 05/30/23 15:29 05/30/23 15:14 93 Room Air 05/30/23 15:22 123/77 95 Room Air 05/30/23 12:50 143/66 H 05/30/23 12:30 05/30/23 12:00 05/30/23 11:30 05/30/23 11:00 05/30/23 10:30 05/30/23 10:00 05/30/23 09:30 05/30/23 09:15 05/30/23 09:05 05/30/23 10:00 Room Air 05/30/23 08:00 05/30/23 07:28 95 Room Air Laboratory Results 05/30/23 15:36 05/30/23 15:36
--- NOTE | 2023-05-30 18:29 | XRay Report ---
XR chest 1V portable CLINICAL HISTORY: follow up aspiration COMPARISON STUDY: Chest radiograph May 29, 2023. FINDINGS: Dual lumen right internal jugular [id number] remains in place. There is no pneumothorax or pleural effusion. There is no consolidation to suggest pneumonia. Pulmonary vascularity is normal. Cardiac size is normal. Mediastinal contours are normal. IMPRESSION: No acute cardiopulmonary findings. No change in appearance of the chest. ACT 112: Negative or not required by law. Electronically signed by: Pacheco Culver M.D. 05/30/2023 6:27 PM
[2023-05-30] MEDS: MIRTAZAPINE TAB 15 MG TAB PO SCH (21:26)
[2023-05-30] MEDS: rOPINIRole HCL 0.25 MG TABLET PO SCH (21:26)
[2023-05-30] MEDS: GABAPENTIN 600 MG TAB PO SCH (21:26)
[2023-05-31] MEDS: HEPARIN SOD 5,000 UNIT/0.5 ML VIAL SQ SCH ×3 (00:32→18:33)
[2023-05-31] MEDS: ACETAMINOPHEN 500 MG TAB PO SCH ×4 (00:33→18:41)
[2023-05-31 05:48] LABS: Hemoglobin 8.7 g/dl (12.0-16.0); Mean Corpuscular Hemoglobin 31.4 pg (25.0-34.0); Mean Corpuscular Hgb Conc 33.5 g/dL (32.0-36.0); Mean Corpuscular Volume 93.9 fL (80.0-100.0); Mean Platelet Volume 9.6 fL (9.4-12.4); Nucleated RBC # (auto) 0.07 K/uL (0.00-0.12); Nucleated RBC % (auto) 0.5 %; Platelet Count 288 K/uL (130-400); RDW Coefficient of Variation 13.3 % (11.5-14.5); Red Blood Count 2.77 M/uL (4.20-5.40); White Blood Count 14.09 K/ul (4.8-10.8)
[2023-05-31] MEDS ORDERED: ceFAZolin 2000MG 2,000 MG/15 ML SYR IV SCH (06:00)
[2023-05-31 06:08] LABS: BUN Creatinine Ratio 10.6 (10-20); Calcium 9.5 mg/dl (8.6-10.3); Creatinine Clr Calc Pharmacy 15.5 ml/min; Est GFR (African American) 13.6 ml/min; Est GFR (Non-African American) 11.7 ml/min; Magnesium 2.1 mg/dl (1.7-2.4); Phosphorus 3.5 mg/dl (2.5-4.9); Potassium 3.8 mmol/L (3.5-5.1)
[2023-05-31] MEDS: LEVOTHYROXINE SODIUM 50 MCG TABLET PO SCH (06:25)
[2023-05-31] MEDS ORDERED: LANTUS PER UNIT CHARGE SC SCH ×2 (09:00→21:00)
--- NOTE | 2023-05-31 09:25 | Hospitalist Progress Note ---
Date of Service May 31, 2023 Assessment & Plan (1) Fall: Plan: (1) Fall: (2) Intertrochanteric fracture of left femur: Plan: Patient is 72-year-old female with PMH ESRD on PD, insulin-dependent diabetes, HTN, HLD, stroke, hypothyroidism, GERD, depression, RLS presented to ER with complaint of falling out of wheelchair and left hip pain. Minimally ambulatory at baseline, mostly uses wheelchair Hip x-ray: Mildly displaced left femoral intertrochanteric fracture Knee xray: No acute fractures, tricompartmental osteoarthritis, severe within the medial and patellofemoral compartments. Orthopedics evaluated patient and feels patient high surgical risk and with current minimal baseline ambulation likely will not be surgical candidate. Continue pain management As needed Dilaudid and oxycodone Continue PT and OT (3) End stage renal disease: Plan: ESRD on PD Continue renal meds, Bumex As per nephrology, patient to be transition to hemodialysis for placement at rehab. Vascular surgery has been consulted - PD cath removed today (05/31/2023) by Dr. Shanta Damico managing HD s/p permcath placement to transition to HD as outpatient For HD Sunday Aspiration event May 29, 2023 Chest x-ray: No acute infiltrates or effusion Speech therapy evaluation with video swallow: No arnie aspiration noted Advised patient regarding aspiration precautions Supervised with her meal Weaned off oxygen currently on RA Started Augmentin - cont. Depression - pt reported to staff incr. feelings of depression and would like eval by psychiatry - psych consulted, appreciate their input (4) DM type 2 (diabetes mellitus, type 2): Plan: Insulin-dependent diabetes A1c: 10 on 12/25/2022 Hold home NovoLog 70/30 Basal bolus insulin per protocol Glycemic pharmacy consult A1c of 8.4% (5) History of stroke: Plan: Continue aspirin, Plavix, atorvastatin. (6) Hypertension: Plan: Continue amlodipine, metoprolol succinate, isosorbide (7) Hyperlipidemia: Plan: Continue atorvastatin (8) Hypothyroid: Plan: Continue levothyroxine (9) GERD (gastroesophageal reflux disease): Plan: Continue PPI (10) Depression: Plan: Continue home meds DVT Prophylaxis heparin DNR/DNI. Disposition [facility] to [facility] care Admission and Anticipated Discharge Date Admission Date: May 18, 2023 Subjective Follow-up for status post fall, hip fracture, hx of ESRD on PD/HD Had an aspiration event during this hospital stay Currently feels well, had PD catheter removed today by Dr. Womack Patient clinically improved, denies any fever, chills, chest pain, or shortness of breath. No abd. pain, n/v Currently on RA Review of Systems Review of Systems: All systems reviewed & are unremarkable except as noted in Subjective Physical Exam Physical Exam: General- WD/WN F in NAD oriented x 3, not in distress, speaks in sentences with no effort or accessory muscle use Eyes- anicteric Neck- no JVD Lungs- clear breath sounds bilaterally, no rales/wheezes Heart- rrr ; no murmurs Abdomen- normal bowel sounds, nondistended, soft, nontender Extremities- no pretibial edema, no calf tenderness Neuro- alert, oriented x 3; speech slow but fluent, answers appropriately, appears tired, moves extremities Skin- warm & dry Results & Data Results & Data Vital Signs (Past 12 Hours) Vital Signs Temp Pulse Pulse Pulse Resp BP BP 05/31/23 07:41 36.6 C 105 H 20 122/69 05/31/23 07:38 110 H 05/31/23 04:00 36.9 C 98 H 18 127/73 05/30/23 22:02 105 H 05/31/23 00:00 36.7 C 110 H 18 121/74 Pulse Ox O2 Del Method 05/31/23 07:41 95 Room Air 05/31/23 07:38 05/31/23 04:00 93 Room Air 05/30/23 22:02 05/31/23 00:00 97 Room Air Laboratory Results 05/31/23 05/31/23 05/31/23 Range/Units 07:30 05:23 05:23 WBC 14.09 H (4.8-10.8) K/ul RBC 2.77 L (4.20-5.40) M/uL Hgb 8.7 L (12.0-16.0) g/dl Hct 26.0 L (37.0-47.0) % MCV 93.9 (80.0-100.0) fL MCH 31.4 (25.0-34.0) pg MCHC 33.5 (32.0-36.0) g/dL RDW Std Deviation 45.0 (36.4-46.3) fL RDW Coeff of Beth[place] 13.3 (11.5-14.5) % Plt Count 288 (130-400) K/uL MPV 9.6 (9.4-12.4) fL Absolute Nucleated RBC 0.07 (0.00-0.12) K/uL Nucleated RBC % (auto) 0.5 % Sodium 135 L (136-145) mmol/L Potassium 3.8 (3.5-5.1) mmol/L Chloride 99 (98-107) mmol/L Carbon Dioxide 24 (21-32) mmol/L Anion Gap 12 H (3-11) BUN 39 H (6-23) mg/dl Creatinine 3.68 H D (0.6-1.2) mg/dl Est Cr Clr Drug Dosing 15.5 ml/min Est GFR ( Amer) 13.6 ml/min Est GFR (Non-Af Amer) 11.7 ml/min BUN/Creatinine Ratio 10.6 (10-20) Glucose 132 H (70-99(Fasting)) mg/dl POC Glucose 138 H (70-99) mg/dl Calcium 9.5 (8.6-10.3) mg/dl Phosphorus 3.5 D (2.5-4.9) mg/dl Magnesium 2.1 (1.7-2.4) mg/dl Procalcitonin (0-0.5) ng/ml 05/31/23 05/30/23 05/30/23 Range/Units 05:23 20:36 17:04 WBC (4.8-10.8) K/ul RBC (4.20-5.40) M/uL Hgb (12.0-16.0) g/dl Hct (37.0-47.0) % MCV (80.0-100.0) fL MCH (25.0-34.0) pg MCHC (32.0-36.0) g/dL RDW Std Deviation (36.4-46.3) fL RDW Coeff of Beth[place] (11.5-14.5) % Plt Count (130-400) K/uL MPV (9.4-12.4) fL Absolute Nucleated RBC (0.00-0.12) K/uL Nucleated RBC % (auto) % Sodium (136-145) mmol/L Potassium (3.5-5.1) mmol/L Chloride (98-107) mmol/L Carbon Dioxide (21-32) mmol/L Anion Gap (3-11) BUN (6-23) mg/dl Creatinine (0.6-1.2) mg/dl Est Cr Clr Drug Dosing ml/min Est GFR ( Amer) ml/min Est GFR (Non-Af Amer) ml/min BUN/Creatinine Ratio (10-20) Glucose (70-99(Fasting)) mg/dl POC Glucose 111 H 193 H (70-99) mg/dl Calcium (8.6-10.3) mg/dl Phosphorus (2.5-4.9) mg/dl Magnesium (1.7-2.4) mg/dl Procalcitonin 4.40 H (0-0.5) ng/ml 05/30/23 05/30/23 05/30/23 Range/Units 15:36 15:36 13:47 WBC 13.62 H (4.8-10.8) K/ul RBC 3.14 L (4.20-5.40) M/uL Hgb 9.7 L (12.0-16.0) g/dl Hct 29.4 L (37.0-47.0) % MCV 93.6 (80.0-100.0) fL MCH 30.9 (25.0-34.0) pg MCHC 33.0 (32.0-36.0) g/dL RDW Std Deviation 43.8 (36.4-46.3) fL RDW Coeff of [place] 13.0 (11.5-14.5) % Plt Count 279 (130-400) K/uL MPV 9.6 (9.4-12.4) fL Absolute Nucleated RBC 0.03 (0.00-0.12) K/uL Nucleated RBC % (auto) 0.2 % Sodium 135 L (136-145) mmol/L Potassium 3.7 (3.5-5.1) mmol/L Chloride 98 (98-107) mmol/L Carbon Dioxide 27 (21-32) mmol/L Anion Gap 10 (3-11) BUN 27 H D (6-23) mg/dl Creatinine 2.19 H D (0.6-1.2) mg/dl Est Cr Clr Drug Dosing 26.0 ml/min Est GFR ( Amer) 25.4 ml/min Est GFR (Non-Af Amer) 22.0 ml/min BUN/Creatinine Ratio 12.3 (10-20) Glucose 227 H (70-99(Fasting)) mg/dl POC Glucose 173 H (70-99) mg/dl Calcium 9.3 (8.6-10.3) mg/dl Phosphorus 2.2 L D (2.5-4.9) mg/dl Magnesium 1.9 (1.7-2.4) mg/dl Procalcitonin (0-0.5) ng/ml Medications Administered Current Inpatient Medications Acetaminophen (Acetaminophen 500 Mg Tab) 500 mg PO Q6H [facility] Stop: 06/20/23 11:29 Last Admin: 05/31/23 06:26 Dose: 500 mg Amlodipine Besylate (Amlodipine Besylate 5 Mg Tab) 10 mg PO DAILY [facility] Stop: 06/18/23 08:59 Last Admin: 05/30/23 13:36 Dose: 10 mg Amoxicillin/Clavulanate Potassium (Amoxicillin/Clavulanate 500 Mg Tab) 1 tab PO BIDM [facility]; Protocol Stop: 06/06/23 16:59 Last Admin: 05/30/23 17:25 Dose: 1 tab Aspirin (Aspirin 81 Mg Ectab) 81 mg PO DAILY [facility] Stop: 06/18/23 08:59 Last Admin: 05/30/23 08:01 Dose: 81 mg Atorvastatin Calcium (Atorvastatin 40 Mg Tab) 40 mg PO DAILY [facility] Stop: 06/18/23 08:59 Last Admin: 05/30/23 08:00 Dose: 40 mg Bisacodyl (Bisacodyl 10 Mg Supp) 10 mg MD DAILY PRN PRN Reason: Constipation Stop: 06/17/23 17:47 Bumetanide (Bumetanide 1 Mg Tab) 4 mg PO BID17 [facility] Stop: 06/18/23 08:59 Last Admin: 05/30/23 16:18 Dose: 4 mg Clopidogrel Bisulfate (Clopidogrel Bisulfate 75 Mg Tab) 75 mg PO QAM [facility] Stop: 06/18/23 08:59 Last Admin: 05/30/23 08:01 Dose: 75 mg Dextrose (Dextrose 50% 50 Ml Syringe) 25 - 50 ml IV UD PRN; Protocol PRN Reason: Hypoglycemia Protocol Stop: 06/17/23 18:16 Docusate Sodium (Docusate Sodium 100 Mg Cap) 100 mg PO BID [facility] Stop: 06/17/23 20:59 Last Admin: 05/30/23 21:25 Dose: 100 mg Duloxetine HCl (Duloxetine Hcl 20 Mg Cap) 20 mg PO DAILY [facility] Stop: 06/18/23 08:59 Last Admin: 05/30/23 08:01 Dose: 20 mg Gabapentin (Gabapentin 300 Mg Cap) 300 mg PO QAM [facility] Stop: 06/18/23 08:59 Last Admin: 05/30/23 13:36 Dose: 300 mg Gabapentin (Gabapentin 600 Mg Tab) 600 mg PO QPM [facility] Stop: 06/17/23 20:59 Last Admin: 05/30/23 21:26 Dose: 600 mg Glucagon (Glucagon For Inj 1 Mg Vial) 1 mg SQ UD PRN; Protocol PRN Reason: Hypoglycemia Protocol Stop: 06/17/23 18:16 Glucose (Glucose 10 Tab/Tube) 4 - 8 tab PO UD PRN; Protocol PRN Reason: Hypoglycemia Treatment Stop: 06/17/23 18:16 Glucose (Glucose 40% Gel 15 Gm Tube) 15 - 30 gm PO UD PRN; Protocol PRN Reason: Hypoglycemia Protocol Stop: 06/17/23 18:16 Heparin Sodium (Porcine) (Heparin Sod 5,000 Unit/0.5 Ml Vial) 5,000 units SQ Q8H [facility] Stop: 06/25/23 01:29 Last Admin: 05/31/23 00:32 Dose: 5,000 units Hydromorphone HCl (Hydromorphone Inj 0.5 Mg/0.5 Ml Syr) 0.5 mg IV Q4H PRN PRN Reason: Mod-Sev Pain (Scale 4-10) Stop: 06/01/23 17:47 Last Admin: 05/29/23 04:42 Dose: 0.5 mg Cefazolin Sodium (Ancef 2000mg) 2,000 mg in 15 mls @ 3.75 mls/min IV PREOP [facility]; Protocol Stop: 05/31/23 18:00 Insulin Aspart (Insulin Aspart Per Unit Charge) 0 units SC ACHS [facility]; Protocol Stop: 06/24/23 00:00 Last Admin: 05/30/23 21:24 Dose: Not Given Isosorbide Mononitrate (Isosorbide Williams Extended Rel 30 Mg Tabcr) 30 mg PO QAM [facility] Stop: 06/18/23 08:59 Last Admin: 05/30/23 13:36 Dose: 30 mg Lactobacillus Acidophilus (Advanced Probiotic 1250 Mg Capsule) 2 cap PO DAILY [facility] Stop: 06/30/23 09:29 Levothyroxine Sodium (Levothyroxine Sodium 50 Mcg Tablet) 50 mcg PO DAILYBB [facility] Stop: 06/18/23 06:29 Last Admin: 05/31/23 06:25 Dose: 50 mcg Magnesium Hydroxide (Magnesium Hydroxide Susp 30 Ml Udc) 30 ml PO DAILY PRN PRN Reason: Constipation Stop: 06/17/23 17:47 Last Admin: 05/27/23 20:14 Dose: 30 ml Melatonin (Melatonin 3 Mg Tab) 9 mg PO HS PRN PRN Reason: Sleep Stop: 06/17/23 18:27 Metoprolol Succinate (Metoprolol Succ 50mg Ext Rel Tab) 50 mg PO DAILY [facility] Stop: 06/18/23 08:59 Last Admin: 05/30/23 13:36 Dose: 50 mg Mirtazapine (Mirtazapine Tab 15 Mg Tab) 15 mg PO HS [facility] Stop: 06/17/23 20:59 Last Admin: 05/30/23 21:26 Dose: 15 mg Miscellaneous (Carbohydrates For Hypoglycemia ) 15 - 30 gm PO UD PRN PRN Reason: Hypoglycemia Protocol Stop: 06/17/23 18:16 Last Admin: 05/28/23 08:17 Dose: 15 gm Miscellaneous Information (Pharmacy Glycemic Mgmt Consult) 1 each N/A UD PRN PRN Reason: Consult Stop: 06/17/23 18:16 Naloxone HCl (Naloxone Hcl 0.4 Mg/1 Ml Vial/Carp) 0.1 mg IV UD PRN PRN Reason: Opiate Overdose Stop: 06/17/23 17:47 Ondansetron HCl (Ondansetron Inj 2 Mg/Ml 2 Ml Vial) 4 mg IV Q6H PRN PRN Reason: Nausea Stop: 06/17/23 17:47 Oxybutynin Chloride (Oxybutynin Chloride 5 Mg Tab) 2.5 mg PO DAILY [facility] Stop: 06/18/23 08:59 Last Admin: 05/30/23 08:00 Dose: 2.5 mg Oxycodone HCl (Oxycodone Hcl Ir 5 Mg Tab (Immediate Release)) 5 mg PO Q6H PRN PRN Reason: moderate to severe pain Stop: 06/11/23 15:20 Last Admin: 05/30/23 10:52 Dose: 5 mg Pantoprazole Sodium (Pantoprazole 40 Mg Tab) 40 mg PO DAILY [facility] Stop: 06/18/23 08:59 Last Admin: 05/30/23 08:00 Dose: 40 mg Polyethylene Glycol (Polyethylene (Miralax) 17 Gm Pack) 17 gm PO DAILY PRN PRN Reason: Constipation Stop: 06/17/23 17:47 Last Admin: 05/27/23 09:19 Dose: 17 gm Ropinirole HCl (Ropinirole Hcl 0.25 Mg Tablet) 0.25 mg PO HS [facility] Stop: 06/17/23 20:59 Last Admin: 05/30/23 21:26 Dose: 0.25 mg Sevelamer HCl (Sevelamer Hcl 800 Mg Tablet) 800 mg PO TIDM [facility] Stop: 06/18/23 07:59 Last Admin: 05/30/23 17:25 Dose: 800 mg Vitamin D (Cholecalciferol 5,000 Units 125 Mcg Tab) 5,000 units PO DAILY [facility] Stop: 06/18/23 08:59 Last Admin: 05/30/23 08:00 Dose: 5,000 units
[2023-05-31] MEDS: INSULIN ASPART PER UNIT CHARGE SC SCH ×4 (09:27→20:24)
[2023-05-31] MEDS: oxyBUTYnin chloride 5 MG TAB PO SCH (09:28)
[2023-05-31] MEDS: PANTOprazole 40 MG TAB PO SCH (09:28)
[2023-05-31] MEDS: BUMETANIDE 1 MG TAB PO SCH ×2 (09:29→18:32)
[2023-05-31] MEDS: ASPIRIN 81 MG ECTAB PO SCH (09:30)
[2023-05-31] MEDS: CHOLECALCIFEROL 5,000 UNITS 125 MCG TAB PO SCH (09:30)
[2023-05-31] MEDS: amLODIPine BESYLATE 5 MG TAB PO SCH (09:31)
[2023-05-31] MEDS: METOPROLOL SUCC 50MG EXT REL TAB PO SCH (09:31)
[2023-05-31] MEDS: GABAPENTIN 300 MG CAP PO SCH (09:31)
[2023-05-31] MEDS: DULoxetine HCL 20 MG CAP PO SCH (09:32)
[2023-05-31] MEDS: ISOSORBIDE MONO EXTENDED REL 30 MG TABCR PO SCH (09:32)
[2023-05-31] MEDS: AMOXICILLIN/CLAVULANATE 500 MG TAB PO SCH ×2 (09:32→18:32)
[2023-05-31] MEDS: ATORVASTATIN 40 MG TAB PO SCH (09:32)
[2023-05-31] MEDS: SEVELAMER HCL 800 MG TABLET PO SCH ×3 (09:33→18:33)
--- NOTE | 2023-05-31 09:42 | Anesthesiology Consultation ---
Date of Service May 31, 2023 Assessment & Plan (1) Encounter for pre-operative examination: Chart Review Chart Review: Acceptable Risk for Surgery History Surgery Operation Date: 05/19/23 07:30 Proposed Procedures p Left Trochanteric Femur Fracture - Maurice Dennison MD Operation Date: 05/25/23 12:00 Proposed Procedures p Perm Catheter Insertion - Andi Womack MD Operation Date: 05/31/23 15:20 Proposed Procedures p Removal of CAPD Catheter - Andi Womack MD Height/Weight Height: 5 ft 3 in Weight: 99.7 kg Allergies Allergy/AdvReac Type Severity Reaction Status Date / Time meperidine Allergy Intermediate hypotension-passed Verified 10/12/22 23:08 out Medications Home Medications Medication Instructions Recorded Confirmed Last Taken bumetanide 2 mg tablet 4 mg PO BID 04/20/22 05/18/23 05/18/23 cholecalciferol (vitamin D3) 125 125 mcg PO DAILY 04/20/22 05/18/23 05/17/23 mcg (5,000 unit) tablet (Vitamin D3) amlodipine 10 mg tablet 10 mg PO DAILY 07/23/22 05/18/23 05/18/23 atorvastatin 40 mg tablet 40 mg PO DAILY 07/23/22 05/18/23 05/18/23 docusate sodium 100 mg capsule 100 mg PO BID 07/23/22 05/18/23 05/18/23 food supplemt, lactose-reduced 1 ea PO BID 07/23/22 05/18/23 10/05/22 (Ensure oral liquid) gabapentin 300 mg capsule 300 mg PO QAM 07/23/22 05/18/23 05/18/23 gabapentin 300 mg capsule 600 mg PO QPM 07/23/22 05/18/23 05/17/23 insulin aspar prot-insulin aspart 56 unit subcut QPM 07/23/22 05/18/23 05/17/23 100 unit/mL (70-30) subcutaneous pen (Novolog Mix 70-30FlexPen U-100) insulin aspar prot-insulin aspart 66 unit subcut QAM 07/23/22 05/18/23 05/18/23 100 unit/mL (70-30) subcutaneous pen (Novolog Mix 70-30FlexPen U-100) isosorbide mononitrate 30 mg 30 mg PO QAM 07/23/22 05/18/23 05/18/23 tablet,extended release 24 hr levothyroxine 50 mcg tablet 50 mcg PO DAILY 07/23/22 05/18/23 05/18/23 melatonin 10 mg tablet 10 mg PO HS PRN Sleep 07/23/22 05/18/23 10/05/22 metoprolol succinate 50 mg 50 mg PO DAILY 07/23/22 05/18/23 05/18/23 tablet,extended release 24 hr mirtazapine 15 mg tablet 15 mg PO HS 07/23/22 05/18/23 05/17/23 tramadol 50 mg tablet 50 mg PO Q4 PRN Pain 07/23/22 05/18/23 10/05/22 clopidogrel 75 mg tablet 75 mg PO QAM #30 tabs 07/25/22 05/18/23 05/18/23 pantoprazole 40 mg tablet,delayed 40 mg PO DAILY #30 tabs 07/25/22 05/18/23 05/18/23 release gentamicin 0.1 % topical cream 1 applic topical DAILY 10/12/22 05/18/23 05/18/23 polyethylene glycol 3350 17 gram 17 g PO BID PRN Constipation 10/12/22 05/18/23 2 Days Ago oral powder packet (Miralax) ~05/16/23 aspirin 81 mg tablet,delayed 81 mg PO DAILY 05/18/23 05/18/23 05/18/23 release duloxetine 20 mg capsule,delayed 20 mg PO DAILY 05/18/23 05/18/23 05/18/23 release oxybutynin chloride 5 mg tablet 2.5 mg PO DAILY 05/18/23 05/18/23 05/18/23 ropinirole 0.25 mg tablet 0.25 mg PO HS 05/18/23 05/18/23 05/17/23 sevelamer carbonate 800 mg tablet 800 mg PO TID 05/18/23 05/18/23 05/18/23 Active Medications Generic Name Dose Route Start Last Admin Trade Name Freq PRN Reason Stop Dose Admin Acetaminophen 500 mg 05/21/23 11:30 05/31/23 06:26 Acetaminophen 500 Mg Tab PO 06/20/23 11:29 500 mg Q6H [facility] Administration Amlodipine Besylate 10 mg 05/19/23 09:00 05/31/23 09:31 Amlodipine Besylate 5 Mg Tab PO 06/18/23 08:59 10 mg DAILY [facility] Administration Amoxicillin/Clavulanate Potassium 1 tab 05/30/23 17:00 05/31/23 09:32 Amoxicillin/Clavulanate 500 Mg Tab PO 06/06/23 16:59 1 tab BIDM [facility] Administration Protocol Aspirin 81 mg 05/19/23 09:00 05/31/23 09:30 Aspirin 81 Mg Ectab PO 06/18/23 08:59 81 mg DAILY [facility] Administration Atorvastatin Calcium 40 mg 05/19/23 09:00 05/31/23 09:32 Atorvastatin 40 Mg Tab PO 06/18/23 08:59 40 mg DAILY [facility] Administration Bumetanide 4 mg 05/19/23 09:00 05/31/23 09:29 Bumetanide 1 Mg Tab PO 06/18/23 08:59 4 mg BID17 [facility] Administration Clopidogrel Bisulfate 75 mg 05/19/23 09:00 05/30/23 08:01 Clopidogrel Bisulfate 75 Mg Tab PO 06/18/23 08:59 75 mg QAM [facility] Administration Docusate Sodium 100 mg 05/18/23 21:00 05/30/23 21:25 Docusate Sodium 100 Mg Cap PO 06/17/23 20:59 100 mg BID [facility] Administration Duloxetine HCl 20 mg 05/19/23 09:00 05/31/23 09:32 Duloxetine Hcl 20 Mg Cap PO 06/18/23 08:59 20 mg DAILY [facility] Administration Gabapentin 300 mg 05/19/23 09:00 05/31/23 09:31 Gabapentin 300 Mg Cap PO 06/18/23 08:59 300 mg QAM [facility] Administration Gabapentin 600 mg 05/18/23 21:00 05/30/23 21:26 Gabapentin 600 Mg Tab PO 06/17/23 20:59 600 mg QPM [facility] Administration Heparin Sodium (Porcine) 5,000 units 05/26/23 01:30 05/31/23 09:33 Heparin Sod 5,000 Unit/0.5 Ml Vial SQ 06/25/23 01:29 5,000 units Q8H [facility] Administration Hydromorphone HCl 0.5 mg 05/20/23 11:15 05/29/23 04:42 Hydromorphone Inj 0.5 Mg/0.5 Ml Syr IV 06/01/23 17:47 0.5 mg Q4H PRN Administration Mod-Sev Pain (Scale 4-10) Insulin Aspart 0 units 05/26/23 07:30 05/31/23 09:27 Insulin Aspart Per Unit Charge SC 06/24/23 00:00 Not Given ACHS [facility] Protocol Isosorbide Mononitrate 30 mg 05/19/23 09:00 05/31/23 09:32 Isosorbide [place] Extended Rel 30 Mg Tabcr PO 06/18/23 08:59 30 mg QAM [facility] Administration Levothyroxine Sodium 50 mcg 05/19/23 06:30 05/31/23 06:25 Levothyroxine Sodium 50 Mcg Tablet PO 06/18/23 06:29 50 mcg DAILYBB [facility] Administration Magnesium Hydroxide 30 ml 05/18/23 17:48 05/27/23 20:14 Magnesium Hydroxide Susp 30 Ml Udc PO 06/17/23 17:47 30 ml DAILY PRN Administration Constipation Metoprolol Succinate 50 mg 05/19/23 09:00 05/31/23 09:31 Metoprolol Succ 50mg Ext Rel Tab PO 06/18/23 08:59 50 mg DAILY [facility] Administration Mirtazapine 15 mg 05/18/23 21:00 05/30/23 21:26 Mirtazapine Tab 15 Mg Tab PO 06/17/23 20:59 15 mg HS [facility] Administration Miscellaneous 15 - 30 gm 05/18/23 18:17 05/28/23 08:17 Carbohydrates For Hypoglycemia PO 06/17/23 18:16 15 gm UD PRN Administration Hypoglycemia Protocol Oxybutynin Chloride 2.5 mg 05/19/23 09:00 05/31/23 09:28 Oxybutynin Chloride 5 Mg Tab PO 06/18/23 08:59 2.5 mg DAILY [facility] Administration Oxycodone HCl 5 mg 05/28/23 15:21 05/30/23 10:52 Oxycodone Hcl Ir 5 Mg Tab (Immediate Release) PO 06/11/23 15:20 5 mg Q6H PRN Administration moderate to severe pain Pantoprazole Sodium 40 mg 05/19/23 09:00 05/31/23 09:28 Pantoprazole 40 Mg Tab PO 06/18/23 08:59 40 mg DAILY [facility] Administration Polyethylene Glycol 17 gm 05/18/23 17:48 05/27/23 09:19 Polyethylene (Miralax) 17 Gm Pack PO 06/17/23 17:47 17 gm DAILY PRN Administration Constipation Ropinirole HCl 0.25 mg 05/18/23 21:00 05/30/23 21:26 Ropinirole Hcl 0.25 Mg Tablet PO 06/17/23 20:59 0.25 mg HS [facility] Administration Sevelamer HCl 800 mg 05/19/23 08:00 05/31/23 09:33 Sevelamer Hcl 800 Mg Tablet PO 06/18/23 07:59 800 mg TIDM [facility] Administration Vitamin D 5,000 units 05/19/23 09:00 05/31/23 09:30 Cholecalciferol 5,000 Units 125 Mcg Tab PO 06/18/23 08:59 5,000 units DAILY [facility] Administration NPO Date Last Intake of Fluids: 05/25/23 Time Last Intake of Fluids: 08:00 Last Intake of Fluids Comment: pills only Date Last Intake of Solids: 05/24/23 Time Last Intake of Solids: 17:00 Past Medical History Medical History (Updated 05/31/23 @ 09:42 by Patrick Choi MD) Ambulatory dysfunction Anemia Diabetic neuropathy DM type 2 (diabetes mellitus, type 2) Dyspnea on exertion Encounter for pre-operative examination ESRD (end stage renal disease) on dialysis peritoneal dialysis patient Exertional chest pain GERD (gastroesophageal reflux disease) Hyperlipidemia Hypertension Lumbar radiculopathy Peritoneal dialysis catheter in place TIA (transient ischemic attack) Past Family History Family History Other Cancer Past Surgical History Surgical History 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 Social History Smoking Status: Never smoker Hx Alcohol Use: No Alcohol type: wine alcohol intake frequency: holidays/special occasions only Hx Substance Use: No substance use type: does not use Physical Exam Vital Signs Last Vital Signs Temp 36.6 C 05/31/23 07:41 Pulse 105 H 05/31/23 07:41 Resp 20 05/31/23 07:41 BP 122/69 05/31/23 07:41 Pulse Ox 95 05/31/23 07:41 O2 Del Method Room Air 05/31/23 07:41 O2 Flow Rate 2 05/29/23 22:00 Testing Laboratory Results 05/31/23 05:23 05/31/23 05:23 PT 10.8 Seconds (9.0-12.0) 05/18/23 13:53 INR 1.0 (0.9-1.1) 05/18/23 13:53 APTT 28.5 Seconds (21.0-31.0) 05/29/23 06:04 Hemoglobin A1c 8.4 % (4.5-5.6) H 05/18/23 13:53 Blood Type A Positive 05/18/23 18:05 Antibody Screen NEGATIVE 05/18/23 18:05 05/31/23 07:30 POC Glucose 138 H
[2023-05-31] MEDS: DOCUSATE SODIUM 100 MG CAP PO SCH ×2 (09:44→20:24)
[2023-05-31] MEDS: CLOPIDOGREL BISULFATE 75 MG TAB PO SCH (09:55)
--- NOTE | 2023-05-31 09:56 | Nephrology Progress Note ---
Date of Service May 31, 2023 Assessment & Plan (1) ESRD (end stage renal disease) on dialysis: Plan: now on intermittent HD via permcath and for on site HD at [facility]; will not be able to do PD at facility unfortunately and as she is non weight bearing not clear when /if she will leave facility. consider risk of infection > odds of resuming PD in 4-6 wks (which would require her to be d/c home from [facility] to family). -for PD cath removal later today or tomorrow -cont MWF HD > next HD 06/01 -chemistries, hgb acceptable >will need to arrange AVF creation after d/c pt after tx 05/30 had worse tachycardia to 120-130s ; also had ?aspiration event on 05/29; has climbing WBC though all of that said does not appear septic/toxic > low threshold for blood cultures if worsening care reviewed w/ case mgt today for d/c dispo care coordinated w/ dr mcnally Admission and Anticipated Discharge Date Admission Date: May 18, 2023 Subjective seen on midday rounds; no n/v. was rather confused this am she tells me. c/o L knee and hip pain. worked w/ PT today Review of Systems Review of Systems: All systems reviewed & are unremarkable except as noted in Subjective Physical Exam Constitutional: well developed and well nourished Eyes: EOM intact bilaterally ENMT: Ears: no external ear abnormality Nose: no external nose abnormality Mouth: + dry oral mucous membranes Neck: no nuchal rigidity Respiratory: normal respiratory effort Auscultation: + diminished lung sounds Cardiovascular: Rate/Rhythm: regular rate and regular rhythm Heart Sounds: + murmur Extremities: no edema Gastrointestinal (Abdomen): Inspection/Auscultation: normal bowel sounds Percussion/Palpation: abdomen soft; abdomen nontender Musculoskeletal: Extremities: strength 5/5 throughout Skin: no rashes, warm and dry Results & Data Vital Signs (Past 12 Hours) Vital Signs Temp Pulse Pulse Pulse Resp BP BP 05/31/23 07:41 36.6 C 105 H 20 122/69 05/31/23 07:38 110 H 05/31/23 04:00 36.9 C 98 H 18 127/73 05/30/23 22:02 105 H 05/31/23 00:00 36.7 C 110 H 18 121/74 Pulse Ox O2 Del Method 10/12/23 07:41 95 Room Air 05/31/23 07:38 05/31/23 04:00 93 Room Air 05/30/23 22:02 05/31/23 00:00 97 Room Air Laboratory Results 05/31/23 05:23 05/31/23 05:23
[2023-05-31] MEDS: ADVANCED PROBIOTIC 1250 MG CAPSULE PO SCH (10:59)
[2023-05-31] MEDS: oxyCODONE HCL IR 5 MG TAB (IMMEDIATE RELEASE) PO PRN ×2 (11:30→18:31)
--- NOTE | 2023-05-31 11:54 | Psychiatric Consultation ---
Date of Consultation May 31, 2023 Impression / Recommendations Impression Note: a full consult was not performed. The patient did have a positive screening for depression but is not suicidal and has no active associated symptoms that need addressed acutely in the hospital as many are attributable to her medical condition and she is improving in that regard. No specific med recs at this time as per HPI. If there is a specific question during her stay, please reach out to liaison who will continue to round for support. Psych History Identifying Data Patient is a 72-year-old female with complicated hx of ESRD (Cr>6 earlier in stay, now 3.12), hyponatremia (low 127 on 05/21, now 133), insulin-dependent diabetes, HTN, HLD, stroke, hypothyroidism, GERD, depression, and RLS initially presented to ER with complaint of fall. Chief Complaint Patient has expressed feeling like a burden to family, etc. History of Present Illness as per initial review of the chart on 05/30/23: Will ask liaison to round to provide support and collect additional history. Acute interventions with psychiatric medications are limited by renal impairment, resolving hyponatremia. Will need to confirm if Cymbalta for pain or depression. hx of Remeron rx in surescripts form March 2023. Would not advise given BMI, etc. Patient was expressive and communicative with the liaison and completed PHQ-9 where she scored 14, many of the vegetative symptoms being attributable to her medical condition. She denied suicidal ideation and had no remarkable psychiatric history. She has been cooperative with care and benefits from [employer] healthcare representative phone visits which is likely more convenient and frequent than therapy she would be able to attend in the community, particularly given the dearth of options for patients on Medicare. Allergies Allergy/AdvReac Type Severity Reaction Status Date / Time meperidine Allergy Intermediate hypotension-passed Verified 10/12/22 23:08 out Home Medications Medication Instructions Recorded Confirmed Type bumetanide 2 mg tablet 4 mg PO BID 04/20/22 05/18/23 History cholecalciferol (vitamin D3) 125 125 mcg PO DAILY 04/20/22 05/18/23 History mcg (5,000 unit) tablet (Vitamin D3) amlodipine 10 mg tablet 10 mg PO DAILY 07/23/22 05/18/23 History atorvastatin 40 mg tablet 40 mg PO DAILY 07/23/22 05/18/23 History docusate sodium 100 mg capsule 100 mg PO BID 07/23/22 05/18/23 History food supplemt, lactose-reduced 1 ea PO BID 07/23/22 05/18/23 History (Ensure oral liquid) gabapentin 300 mg capsule 300 mg PO QAM 07/23/22 05/18/23 History gabapentin 300 mg capsule 600 mg PO QPM 07/23/22 05/18/23 History insulin aspar prot-insulin aspart 56 unit subcut QPM 07/23/22 05/18/23 History 100 unit/mL (70-30) subcutaneous pen (Novolog Mix 70-30FlexPen U-100) insulin aspar prot-insulin aspart 66 unit subcut QAM 07/23/22 05/18/23 History 100 unit/mL (70-30) subcutaneous pen (Novolog Mix 70-30FlexPen U-100) isosorbide mononitrate 30 mg 30 mg PO QAM 07/23/22 05/18/23 History tablet,extended release 24 hr levothyroxine 50 mcg tablet 50 mcg PO DAILY 07/23/22 05/18/23 History melatonin 10 mg tablet 10 mg PO HS PRN Sleep 07/23/22 05/18/23 History metoprolol succinate 50 mg 50 mg PO DAILY 07/23/22 05/18/23 History tablet,extended release 24 hr mirtazapine 15 mg tablet 15 mg PO HS 07/23/22 05/18/23 History tramadol 50 mg tablet 50 mg PO Q4 PRN Pain 07/23/22 05/18/23 History clopidogrel 75 mg tablet 75 mg PO QAM #30 tabs 07/25/22 05/18/23 Rx pantoprazole 40 mg tablet,delayed 40 mg PO DAILY #30 tabs 07/25/22 05/18/23 Rx release gentamicin 0.1 % topical cream 1 applic topical DAILY 10/12/22 05/18/23 History polyethylene glycol 3350 17 gram 17 g PO BID PRN Constipation 10/12/22 05/18/23 History oral powder packet (Miralax) aspirin 81 mg tablet,delayed 81 mg PO DAILY 05/18/23 05/18/23 History release duloxetine 20 mg capsule,delayed 20 mg PO DAILY 05/18/23 05/18/23 History release oxybutynin chloride 5 mg tablet 2.5 mg PO DAILY 05/18/23 05/18/23 History ropinirole 0.25 mg tablet 0.25 mg PO HS 05/18/23 05/18/23 History sevelamer carbonate 800 mg tablet 800 mg PO TID 05/18/23 05/18/23 History Patient History Medical History (Updated 05/31/23 @ 09:42 by Patrick Choi MD) Ambulatory dysfunction Anemia Diabetic neuropathy DM type 2 (diabetes mellitus, type 2) Dyspnea on exertion Encounter for pre-operative examination ESRD (end stage renal disease) on dialysis peritoneal dialysis patient Exertional chest pain GERD (gastroesophageal reflux disease) Hyperlipidemia Hypertension Lumbar radiculopathy Peritoneal dialysis catheter in place TIA (transient ischemic attack) Surgical History 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 Family History Other Cancer Social History Smoking Status: Never smoker Hx Alcohol Use: No Hx Substance Use: No Preferred Language: Samoan Communication Ability: Effective [employer] Management Specialist Required: No Beliefs That Will Affect Care: None marital status: / Current Living Situation: Family Current Living Situation Comment: lives with son, has to go up 14 steps to get into house, then 1 floor Other Information That Helps Us Care for You: No Feels Safe at Home: Yes Safety Concerns: Feels Safe At This Time Assistive Devices: Bedside Commode, Walker and Wheelchair Physical Exam Vital Signs (Past 24 Hours): Last Vital Signs Temp 36.6 C 05/31/23 11:37 Pulse 93 H 05/31/23 11:37 Resp 20 05/31/23 11:37 BP 137/74 05/31/23 11:37 Pulse Ox 93 05/31/23 11:37 O2 Del Method Room Air 05/31/23 11:37 O2 Flow Rate 2 05/29/23 22:00 Results & Data (PSY) Medications Administered Acetaminophen (Acetaminophen 500 Mg Tab) 500 mg PO Q6H [facility] Stop: 06/20/23 11:29 Last Admin: 05/31/23 11:13 Dose: 500 mg Documented By: Admin: 05/31/23 06:26 Dose: 500 mg Documented By: Admin: 05/31/23 00:33 Dose: 500 mg Documented By: Admin: 05/30/23 17:34 Dose: 500 mg Documented By: Admin: 05/30/23 13:52 Dose: 500 mg Documented By: Admin: 05/30/23 05:54 Dose: 500 mg Documented By: Admin: 05/30/23 00:29 Dose: 500 mg Documented By: Admin: 05/29/23 18:04 Dose: 500 mg Documented By: Admin: 05/29/23 11:03 Dose: Not Given Documented By: Admin: 05/29/23 05:57 Dose: 500 mg Documented By: Admin: 05/28/23 23:29 Dose: 500 mg Documented By: Admin: 05/28/23 17:26 Dose: 500 mg Documented By: Admin: 05/28/23 13:19 Dose: 500 mg Documented By: Admin: 05/28/23 06:18 Dose: 500 mg Documented By: Admin: 05/27/23 22:52 Dose: 500 mg Documented By: Admin: 05/27/23 17:23 Dose: 500 mg Documented By: Admin: 05/27/23 12:50 Dose: 500 mg Documented By: Admin: 05/27/23 05:36 Dose: 500 mg Documented By: Admin: 05/26/23 23:00 Dose: 500 mg Documented By: Admin: 05/26/23 17:38 Dose: 500 mg Documented By: Admin: 05/26/23 12:28 Dose: 500 mg Documented By: Admin: 05/26/23 05:28 Dose: 500 mg Documented By: Admin: 05/26/23 01:00 Dose: 500 mg Documented By: Admin: 05/25/23 18:27 Dose: 500 mg Documented By: Admin: 05/25/23 11:30 Dose: Not Given Documented By: Admin: 05/25/23 06:16 Dose: 500 mg Documented By: Admin: 05/24/23 23:29 Dose: 500 mg Documented By: Admin: 05/24/23 18:21 Dose: 500 mg Documented By: Admin: 05/24/23 11:24 Dose: 500 mg Documented By: Admin: 05/24/23 05:20 Dose: 500 mg Documented By: Admin: 05/23/23 21:17 Dose: 500 mg Documented By: Admin: 05/23/23 16:56 Dose: 500 mg Documented By: Admin: 05/23/23 12:19 Dose: 500 mg Documented By: Admin: 05/23/23 05:23 Dose: 500 mg Documented By: Admin: 05/22/23 23:23 Dose: 500 mg Documented By: Admin: 05/22/23 17:40 Dose: 500 mg Documented By: Admin: 05/22/23 11:33 Dose: 500 mg Documented By: Admin: 05/22/23 05:55 Dose: 500 mg Documented By: DAMIAN(2) Admin: 05/21/23 22:40 Dose: 500 mg Documented By: DAMIAN(2) Admin: 05/21/23 17:57 Dose: 500 mg Documented By: Admin: 05/21/23 12:48 Dose: 500 mg Documented By: ALYSHA Amlodipine Besylate (Amlodipine Besylate 5 Mg Tab) 10 mg PO DAILY [facility] Stop: 06/18/23 08:59 Last Admin: 05/31/23 09:31 Dose: 10 mg Documented By: Admin: 05/30/23 13:36 Dose: 10 mg Documented By: Admin: 05/29/23 08:08 Dose: 10 mg Documented By: Admin: 05/28/23 09:38 Dose: Not Given Documented By: Admin: 05/27/23 08:56 Dose: 10 mg Documented By: Admin: 05/26/23 09:42 Dose: 10 mg Documented By: MTBradley Admin: 05/25/23 08:38 Dose: 10 mg Documented By: Admin: 05/24/23 08:58 Dose: 10 mg Documented By: Admin: 05/23/23 09:15 Dose: 10 mg Documented By: Admin: 05/22/23 08:50 Dose: 10 mg Documented By: Admin: 05/21/23 09:31 Dose: 10 mg Documented By: Admin: 05/20/23 09:23 Dose: 10 mg Documented By: Admin: 05/19/23 09:06 Dose: 10 mg Documented By: ALYSHA Amoxicillin/Clavulanate Potassium (Amoxicillin/Clavulanate 500 Mg Tab) 1 tab PO BIDM [facility]; Protocol Stop: 06/06/23 16:59 Last Admin: 05/31/23 09:32 Dose: 1 tab Documented By: Admin: 05/30/23 17:25 Dose: 1 tab Documented By: ARTIE Aspirin (Aspirin 81 Mg Ectab) 81 mg PO DAILY [facility] Stop: 06/18/23 08:59 Last Admin: 05/31/23 09:30 Dose: 81 mg Documented By: Admin: 05/30/23 08:01 Dose: 81 mg Documented By: Admin: 05/29/23 08:08 Dose: 81 mg Documented By: Admin: 05/28/23 08:35 Dose: 81 mg Documented By: MTBradley Admin: 05/27/23 08:57 Dose: 81 mg Documented By: Admin: 05/26/23 09:42 Dose: 81 mg Documented By: MTBradley Admin: 05/25/23 08:37 Dose: 81 mg Documented By: Admin: 05/24/23 08:58 Dose: 81 mg Documented By: Admin: 05/23/23 09:15 Dose: 81 mg Documented By: Admin: 05/22/23 08:50 Dose: 81 mg Documented By: Admin: 05/21/23 09:32 Dose: 81 mg Documented By: Admin: 05/20/23 09:22 Dose: 81 mg Documented By: Admin: 05/19/23 09:06 Dose: 81 mg Documented By: ALYSHA Atorvastatin Calcium (Atorvastatin 40 Mg Tab) 40 mg PO DAILY [facility] Stop: 06/18/23 08:59 Last Admin: 05/31/23 09:32 Dose: 40 mg Documented By: Admin: 05/30/23 08:00 Dose: 40 mg Documented By: Admin: 05/29/23 08:08 Dose: 40 mg Documented By: Admin: 05/28/23 08:34 Dose: 40 mg Documented By: MTBradley Admin: 05/27/23 08:57 Dose: 40 mg Documented By: Admin: 05/26/23 09:42 Dose: 40 mg Documented By: Admin: 05/25/23 08:37 Dose: 40 mg Documented By: Admin: 05/24/23 08:59 Dose: 40 mg Documented By: Admin: 05/23/23 09:14 Dose: 40 mg Documented By: Admin: 05/22/23 09:01 Dose: 40 mg Documented By: Admin: 05/21/23 09:32 Dose: 40 mg Documented By: Admin: 05/20/23 09:23 Dose: 40 mg Documented By: Admin: 05/19/23 09:07 Dose: 40 mg Documented By: ALYSHA Bumetanide (Bumetanide 1 Mg Tab) 4 mg PO BID17 [facility] Stop: 06/18/23 08:59 Last Admin: 05/31/23 09:29 Dose: 4 mg Documented By: Admin: 05/30/23 16:18 Dose: 4 mg Documented By: Admin: 05/30/23 08:00 Dose: 4 mg Documented By: Admin: 05/29/23 18:01 Dose: 4 mg Documented By: Admin: 05/29/23 08:07 Dose: 4 mg Documented By: Admin: 05/28/23 17:26 Dose: 4 mg Documented By: Admin: 05/28/23 09:38 Dose: Not Given Documented By: Admin: 05/27/23 17:21 Dose: 4 mg Documented By: MTrBadley Admin: 05/27/23 08:57 Dose: 4 mg Documented By: MTBradley Admin: 05/26/23 17:34 Dose: 4 mg Documented By: Admin: 05/26/23 09:42 Dose: 4 mg Documented By: Admin: 05/25/23 17:28 Dose: 4 mg Documented By: Admin: 05/25/23 08:38 Dose: 4 mg Documented By: Admin: 05/24/23 18:15 Dose: 4 mg Documented By: Admin: 05/24/23 08:59 Dose: 4 mg Documented By: Admin: 05/23/23 16:57 Dose: 4 mg Documented By: Admin: 05/23/23 09:14 Dose: 4 mg Documented By: Admin: 05/22/23 17:04 Dose: 4 mg Documented By: Admin: 05/22/23 08:51 Dose: 4 mg Documented By: Admin: 05/21/23 17:57 Dose: 4 mg Documented By: Admin: 05/21/23 09:32 Dose: 4 mg Documented By: Admin: 05/20/23 17:45 Dose: 4 mg Documented By: Admin: 05/20/23 09:23 Dose: 4 mg Documented By: KJGianfranco Admin: 05/19/23 18:07 Dose: 4 mg Documented By: KJGianfranco Admin: 05/19/23 09:08 Dose: 4 mg Documented By: ALYSHA Clopidogrel Bisulfate (Clopidogrel Bisulfate 75 Mg Tab) 75 mg PO QAM [facility] Stop: 06/18/23 08:59 Last Admin: 05/31/23 09:55 Dose: Not Given Documented By: Admin: 05/30/23 08:01 Dose: 75 mg Documented By: Admin: 05/29/23 08:07 Dose: 75 mg Documented By: Admin: 05/28/23 08:35 Dose: 75 mg Documented By: Admin: 05/27/23 08:56 Dose: 75 mg Documented By: Admin: 05/26/23 09:42 Dose: 75 mg Documented By: MTBradley Admin: 05/25/23 08:37 Dose: 75 mg Documented By: Admin: 05/24/23 08:58 Dose: 75 mg Documented By: Admin: 05/23/23 09:14 Dose: 75 mg Documented By: Admin: 05/22/23 09:02 Dose: 75 mg Documented By: Admin: 05/21/23 09:32 Dose: 75 mg Documented By: KJGianfranco Admin: 05/20/23 09:22 Dose: 75 mg Documented By: Admin: 05/19/23 09:07 Dose: 75 mg Documented By: ALYSHA Docusate Sodium (Docusate Sodium 100 Mg Cap) 100 mg PO BID [facility] Stop: 06/17/23 20:59 Last Admin: 05/31/23 09:44 Dose: 100 mg Documented By: Admin: 05/30/23 21:25 Dose: 100 mg Documented By: Admin: 05/30/23 13:52 Dose: 100 mg Documented By: Admin: 05/29/23 21:35 Dose: 100 mg Documented By: Admin: 05/29/23 09:06 Dose: Not Given Documented By: Admin: 05/28/23 20:59 Dose: 100 mg Documented By: Admin: 05/28/23 09:38 Dose: Not Given Documented By: Admin: 05/27/23 20:14 Dose: 100 mg Documented By: Admin: 05/27/23 09:03 Dose: 100 mg Documented By: Admin: 05/26/23 20:50 Dose: 100 mg Documented By: Admin: 05/26/23 09:49 Dose: 100 mg Documented By: Admin: 05/25/23 20:46 Dose: 100 mg Documented By: DMBradley Admin: 05/25/23 08:40 Dose: 100 mg Documented By: Admin: 05/24/23 20:13 Dose: 100 mg Documented By: Admin: 05/24/23 09:04 Dose: 100 mg Documented By: Admin: 05/23/23 21:23 Dose: 100 mg Documented By: Admin: 05/23/23 09:29 Dose: 100 mg Documented By: Admin: 05/22/23 20:52 Dose: 100 mg Documented By: Admin: 05/22/23 09:09 Dose: 100 mg Documented By: Admin: 05/21/23 20:29 Dose: 100 mg Documented By: DAMIAN(2) Admin: 05/21/23 10:37 Dose: 100 mg Documented By: KJGianfranco Admin: 05/20/23 21:18 Dose: 100 mg Documented By: Admin: 05/20/23 09:29 Dose: 100 mg Documented By: Admin: 05/19/23 21:19 Dose: 100 mg Documented By: Admin: 05/19/23 09:08 Dose: 100 mg Documented By: Admin: 05/18/23 20:54 Dose: 100 mg Documented By: DAMIAN Duloxetine HCl (Duloxetine Hcl 20 Mg Cap) 20 mg PO DAILY [facility] Stop: 06/18/23 08:59 Last Admin: 05/31/23 09:32 Dose: 20 mg Documented By: Admin: 05/30/23 08:01 Dose: 20 mg Documented By: Admin: 05/29/23 08:08 Dose: 20 mg Documented By: Admin: 05/28/23 08:34 Dose: 20 mg Documented By: Admin: 05/27/23 08:57 Dose: 20 mg Documented By: Admin: 05/26/23 09:43 Dose: 20 mg Documented By: Admin: 05/25/23 08:37 Dose: 20 mg Documented By: Admin: 05/24/23 08:58 Dose: 20 mg Documented By: Admin: 05/23/23 09:15 Dose: 20 mg Documented By: Admin: 05/22/23 09:01 Dose: 20 mg Documented By: Admin: 05/21/23 09:31 Dose: 20 mg Documented By: Admin: 05/20/23 09:24 Dose: 20 mg Documented By: Admin: 05/19/23 09:08 Dose: 20 mg Documented By: ALYSHA Gabapentin (Gabapentin 300 Mg Cap) 300 mg PO QAM [facility] Stop: 06/18/23 08:59 Last Admin: 05/31/23 09:31 Dose: 300 mg Documented By: Admin: 05/30/23 13:36 Dose: 300 mg Documented By: Admin: 05/30/23 08:06 Dose: Not Given Documented By: Admin: 05/28/23 08:35 Dose: 300 mg Documented By: Admin: 05/27/23 08:57 Dose: 300 mg Documented By: Admin: 05/26/23 09:42 Dose: 300 mg Documented By: Admin: 05/25/23 08:38 Dose: 300 mg Documented By: Admin: 05/24/23 08:59 Dose: 300 mg Documented By: Admin: 05/23/23 09:14 Dose: 300 mg Documented By: Admin: 05/22/23 08:51 Dose: 300 mg Documented By: Admin: 05/21/23 09:31 Dose: 300 mg Documented By: Admin: 05/20/23 09:24 Dose: 300 mg Documented By: Admin: 05/19/23 09:09 Dose: 300 mg Documented By: ALYSHA Gabapentin (Gabapentin 600 Mg Tab) 600 mg PO QPM [facility] Stop: 06/17/23 20:59 Last Admin: 05/30/23 21:26 Dose: 600 mg Documented By: Admin: 05/29/23 22:05 Dose: Not Given Documented By: Admin: 05/28/23 20:55 Dose: 600 mg Documented By: Admin: 05/27/23 20:14 Dose: 600 mg Documented By: Admin: 05/26/23 20:50 Dose: 600 mg Documented By: Admin: 05/25/23 20:45 Dose: 600 mg Documented By: Admin: 05/24/23 19:54 Dose: 600 mg Documented By: Admin: 05/23/23 21:18 Dose: 600 mg Documented By: Admin: 05/22/23 20:50 Dose: 600 mg Documented By: Admin: 05/21/23 20:29 Dose: 600 mg Documented By: DAMIAN(2) Admin: 05/20/23 21:10 Dose: 600 mg Documented By: Admin: 05/19/23 21:18 Dose: 600 mg Documented By: Admin: 05/18/23 20:55 Dose: 600 mg Documented By: DAMIAN Heparin Sodium (Porcine) (Heparin Sod 5,000 Unit/0.5 Ml Vial) 5,000 units SQ Q8H [facility] Stop: 06/25/23 01:29 Last Admin: 05/31/23 09:33 Dose: 5,000 units Documented By: Admin: 05/31/23 00:32 Dose: 5,000 units Documented By: Admin: 05/30/23 17:26 Dose: 5,000 units Documented By: Admin: 05/30/23 13:36 Dose: 5,000 units Documented By: Admin: 05/30/23 01:46 Dose: 5,000 units Documented By: Admin: 05/29/23 18:05 Dose: 5,000 units Documented By: Admin: 05/29/23 09:05 Dose: 5,000 units Documented By: Admin: 05/29/23 02:34 Dose: 5,000 units Documented By: Admin: 05/28/23 17:26 Dose: 5,000 units Documented By: Admin: 05/28/23 09:40 Dose: Not Given Documented By: Admin: 05/28/23 01:00 Dose: 5,000 units Documented By: Admin: 05/27/23 17:20 Dose: 5,000 units Documented By: Admin: 05/27/23 08:57 Dose: 5,000 units Documented By: Admin: 05/27/23 02:17 Dose: 5,000 units Documented By: Admin: 05/26/23 17:39 Dose: 5,000 units Documented By: Admin: 05/26/23 09:43 Dose: 5,000 units Documented By: MTBradley Admin: 05/26/23 00:58 Dose: 5,000 units Documented By: DAMIAN Hydromorphone HCl (Hydromorphone Inj 0.5 Mg/0.5 Ml Syr) 0.5 mg IV Q4H PRN PRN Reason: Mod-Sev Pain (Scale 4-10) Stop: 06/01/23 17:47 Last Admin: 05/29/23 04:42 Dose: 0.5 mg Documented By: Admin: 05/28/23 21:00 Dose: 0.5 mg Documented By: Admin: 05/28/23 13:14 Dose: 0.5 mg Documented By: Admin: 05/28/23 08:48 Dose: 0.5 mg Documented By: Admin: 05/27/23 20:14 Dose: 0.5 mg Documented By: Admin: 05/27/23 13:05 Dose: 0.5 mg Documented By: Admin: 05/27/23 05:37 Dose: 0.5 mg Documented By: Admin: 05/26/23 23:01 Dose: 0.5 mg Documented By: Admin: 05/26/23 18:26 Dose: 0.5 mg Documented By: MTBradley Admin: 05/25/23 20:46 Dose: 0.5 mg Documented By: Admin: 05/25/23 13:33 Dose: 0.5 mg Documented By: MTBradley Admin: 05/24/23 23:35 Dose: 0.5 mg Documented By: Admin: 05/24/23 17:28 Dose: 0.5 mg Documented By: Admin: 05/24/23 13:21 Dose: 0.5 mg Documented By: Admin: 05/24/23 09:15 Dose: 0.5 mg Documented By: Admin: 05/23/23 18:07 Dose: 0.5 mg Documented By: Admin: 05/23/23 13:18 Dose: 0.5 mg Documented By: Admin: 05/23/23 09:29 Dose: 0.5 mg Documented By: Admin: 05/22/23 20:52 Dose: 0.5 mg Documented By: Admin: 05/22/23 09:09 Dose: 0.5 mg Documented By: Admin: 05/22/23 00:27 Dose: 0.5 mg Documented By: DAMIAN(2) Admin: 05/21/23 15:13 Dose: 0.5 mg Documented By: Admin: 05/21/23 09:23 Dose: 0.5 mg Documented By: Admin: 05/21/23 06:17 Dose: 0.5 mg Documented By: Admin: 05/20/23 21:43 Dose: 0.5 mg Documented By: Admin: 05/20/23 17:48 Dose: 0.5 mg Documented By: ALYSHA Insulin Aspart (Insulin Aspart Per Unit Charge) 0 units SC [facility]; Protocol Stop: 06/24/23 00:00 Last Admin: 05/31/23 09:27 Dose: Not Given Documented By: Admin: 05/30/23 21:24 Dose: Not Given Documented By: HOLLY Co-signed By: DEANA Admin: 05/30/23 17:38 Dose: 13 units Documented By: ARTIE Co-signed By: RACHELE Admin: 05/30/23 13:51 Dose: 5 units Documented By: ARTIE Co-signed By: NAPOLEON Admin: 05/30/23 08:41 Dose: Not Given Documented By: Admin: 05/29/23 21:34 Dose: 1 units Documented By: HOLLY Co-signed By: GIOVANNA Admin: 05/29/23 18:07 Dose: 2 units Documented By: ARTIE Co-signed By: ALBERT Admin: 05/29/23 13:51 Dose: 7 units Documented By: ARTIE Co-signed By: NAPOLEON Admin: 05/29/23 09:12 Dose: 8 units Documented By: ARTIE Co-signed By: HELEN Admin: 05/28/23 20:56 Dose: 3 units Documented By: HOLLY Co-signed By: JULES Admin: 05/28/23 18:07 Dose: 6 units Documented By: DOUGLAS Co-signed By: HELEN Admin: 05/28/23 14:06 Dose: 3 units Documented By: DOUGLAS Co-signed By: DELORIS Admin: 05/28/23 08:49 Dose: 6 units Documented By: DOUGLAS Co-signed By: ELVIRA Admin: 05/27/23 20:16 Dose: Not Given Documented By: Admin: 05/27/23 18:08 Dose: 3 units Documented By: DOUGLAS Co-signed By: CB Admin: 05/27/23 12:51 Dose: 12 units Documented By: DOUGLAS Co-signed By: DEANA(2) Admin: 05/27/23 09:03 Dose: 10 units Documented By: DOUGLAS Co-signed By: HELEN Admin: 05/26/23 20:46 Dose: 2 units Documented By: DEANA Co-signed By: SLC Admin: 05/26/23 18:18 Dose: 11 units Documented By: DOUGLAS Co-signed By: SDA Admin: 05/26/23 13:16 Dose: 12 units Documented By: DOUGLAS Co-signed By: ANNALEE Admin: 05/26/23 09:49 Dose: 6 units Documented By: DOUGLAS Co-signed By: SDA Isosorbide Mononitrate (Isosorbide [place] Extended Rel 30 Mg Tabcr) 30 mg PO QAM [facility] Stop: 06/18/23 08:59 Last Admin: 05/31/23 09:32 Dose: 30 mg Documented By: Admin: 05/30/23 13:36 Dose: 30 mg Documented By: Admin: 05/29/23 08:07 Dose: 30 mg Documented By: Admin: 05/28/23 09:40 Dose: Not Given Documented By: MTBradley Admin: 05/27/23 08:56 Dose: 30 mg Documented By: Admin: 05/26/23 09:42 Dose: 30 mg Documented By: Admin: 05/25/23 08:37 Dose: 30 mg Documented By: Admin: 05/24/23 08:58 Dose: 30 mg Documented By: Admin: 05/23/23 09:29 Dose: 30 mg Documented By: Admin: 05/22/23 08:51 Dose: 30 mg Documented By: Admin: 05/21/23 09:31 Dose: 30 mg Documented By: Admin: 05/20/23 09:24 Dose: 30 mg Documented By: Admin: 05/19/23 09:09 Dose: 30 mg Documented By: ALYSHA Lactobacillus Acidophilus (Advanced Probiotic 1250 Mg Capsule) 2 cap PO DAILY [facility] Stop: 06/30/23 09:29 Last Admin: 05/31/23 10:59 Dose: 2 cap Documented By: MATT Levothyroxine Sodium (Levothyroxine Sodium 50 Mcg Tablet) 50 mcg PO DAILYBB [facility] Stop: 06/18/23 06:29 Last Admin: 05/31/23 06:25 Dose: 50 mcg Documented By: Admin: 05/30/23 05:55 Dose: 50 mcg Documented By: Admin: 05/29/23 05:48 Dose: 50 mcg Documented By: Admin: 05/28/23 06:18 Dose: 50 mcg Documented By: Admin: 05/27/23 05:36 Dose: 50 mcg Documented By: Admin: 05/26/23 05:28 Dose: 50 mcg Documented By: Admin: 05/25/23 06:16 Dose: 50 mcg Documented By: Admin: 05/24/23 05:19 Dose: 50 mcg Documented By: Admin: 05/23/23 05:27 Dose: 50 mcg Documented By: Admin: 05/22/23 05:55 Dose: 50 mcg Documented By: DAMIAN(2) Admin: 05/21/23 06:17 Dose: 50 mcg Documented By: Admin: 05/20/23 06:24 Dose: 50 mcg Documented By: JULIO CESAR Admin: 05/19/23 06:04 Dose: 50 mcg Documented By: DAMIAN Magnesium Hydroxide (Magnesium Hydroxide Susp 30 Ml Udc) 30 ml PO DAILY PRN PRN Reason: Constipation Stop: 06/17/23 17:47 Last Admin: 05/27/23 20:14 Dose: 30 ml Documented By: DEANA Metoprolol Succinate (Metoprolol Succ 50mg Ext Rel Tab) 50 mg PO DAILY [facility] Stop: 06/18/23 08:59 Last Admin: 05/31/23 09:31 Dose: 50 mg Documented By: Admin: 05/30/23 13:36 Dose: 50 mg Documented By: Admin: 05/29/23 08:07 Dose: 50 mg Documented By: Admin: 05/28/23 09:40 Dose: Not Given Documented By: Admin: 05/27/23 08:57 Dose: 50 mg Documented By: Admin: 05/26/23 09:42 Dose: 50 mg Documented By: Admin: 05/25/23 08:38 Dose: 50 mg Documented By: Admin: 05/24/23 08:58 Dose: 50 mg Documented By: Admin: 05/23/23 09:15 Dose: 50 mg Documented By: Admin: 05/22/23 08:51 Dose: 50 mg Documented By: Admin: 05/21/23 10:47 Dose: Not Given Documented By: Admin: 05/20/23 09:22 Dose: 50 mg Documented By: Admin: 05/19/23 09:09 Dose: 50 mg Documented By: ALYSHA Mirtazapine (Mirtazapine Tab 15 Mg Tab) 15 mg PO HS CHARLEY Stop: 06/17/23 20:59 Last Admin: 05/30/23 21:26 Dose: 15 mg Documented By: Admin: 05/29/23 22:05 Dose: Not Given Documented By: Admin: 05/28/23 20:55 Dose: 15 mg Documented By: Admin: 05/27/23 20:14 Dose: 15 mg Documented By: Admin: 05/26/23 20:50 Dose: 15 mg Documented By: Admin: 05/25/23 20:45 Dose: 15 mg Documented By: Admin: 05/24/23 19:54 Dose: 15 mg Documented By: Admin: 05/23/23 21:20 Dose: 15 mg Documented By: Admin: 05/22/23 20:49 Dose: 15 mg Documented By: Admin: 05/21/23 20:30 Dose: 15 mg Documented By: [email or web address](2) Admin: 05/20/23 21:12 Dose: 15 mg Documented By: Admin: 05/19/23 21:18 Dose: 15 mg Documented By: Admin: 05/18/23 20:54 Dose: 15 mg Documented By: DAMIAN Miscellaneous (Carbohydrates For Hypoglycemia ) 15 - 30 gm PO UD PRN PRN Reason: Hypoglycemia Protocol Stop: 06/17/23 18:16 Last Admin: 05/28/23 08:17 Dose: 15 gm Documented By: DOUGLAS Oxybutynin Chloride (Oxybutynin Chloride 5 Mg Tab) 2.5 mg PO DAILY CHARLEY Stop: 06/18/23 08:59 Last Admin: 05/31/23 09:28 Dose: 2.5 mg Documented By: Admin: 05/30/23 08:00 Dose: 2.5 mg Documented By: Admin: 05/29/23 08:08 Dose: 2.5 mg Documented By: Admin: 05/28/23 08:34 Dose: 2.5 mg Documented By: Admin: 05/27/23 08:56 Dose: 2.5 mg Documented By: Admin: 05/26/23 09:42 Dose: 2.5 mg Documented By: Admin: 05/25/23 08:38 Dose: 2.5 mg Documented By: Admin: 05/24/23 08:59 Dose: 2.5 mg Documented By: Admin: 05/23/23 09:15 Dose: 2.5 mg Documented By: Admin: 05/22/23 08:52 Dose: 2.5 mg Documented By: Admin: 05/21/23 09:30 Dose: 2.5 mg Documented By: Admin: 05/20/23 09:23 Dose: 2.5 mg Documented By: Admin: 05/19/23 09:09 Dose: 2.5 mg Documented By: ALYSHA Oxycodone HCl (Oxycodone Hcl Ir 5 Mg Tab (Immediate Release)) 5 mg PO Q6H PRN PRN Reason: moderate to severe pain Stop: 06/11/23 15:20 Last Admin: 05/31/23 11:30 Dose: 5 mg Documented By: Admin: 05/30/23 10:52 Dose: 5 mg Documented By: Admin: 05/29/23 13:50 Dose: 5 mg Documented By: Admin: 05/29/23 03:48 Dose: 5 mg Documented By: Admin: 05/28/23 16:08 Dose: 5 mg Documented By: DOUGLAS Pantoprazole Sodium (Pantoprazole 40 Mg Tab) 40 mg PO DAILY CHARLEY Stop: 06/18/23 08:59 Last Admin: 05/31/23 09:28 Dose: 40 mg Documented By: Admin: 05/30/23 08:00 Dose: 40 mg Documented By: Admin: 05/29/23 08:07 Dose: 40 mg Documented By: Admin: 05/28/23 08:35 Dose: 40 mg Documented By: Admin: 05/27/23 08:57 Dose: 40 mg Documented By: Admin: 05/26/23 09:42 Dose: 40 mg Documented By: Admin: 05/25/23 08:37 Dose: 40 mg Documented By: Admin: 05/24/23 08:59 Dose: 40 mg Documented By: Admin: 05/23/23 09:15 Dose: 40 mg Documented By: Admin: 05/22/23 08:52 Dose: 40 mg Documented By: Admin: 05/21/23 09:30 Dose: 40 mg Documented By: Admin: 05/20/23 09:23 Dose: 40 mg Documented By: Admin: 05/19/23 09:10 Dose: 40 mg Documented By: ALYSHA Polyethylene Glycol (Polyethylene (Miralax) 17 Gm Pack) 17 gm PO DAILY PRN PRN Reason: Constipation Stop: 06/17/23 17:47 Last Admin: 05/27/23 09:19 Dose: 17 gm Documented By: Admin: 05/20/23 16:49 Dose: 17 gm Documented By: Admin: 05/19/23 09:18 Dose: 17 gm Documented By: ALYSHA Ropinirole HCl (Ropinirole Hcl 0.25 Mg Tablet) 0.25 mg PO HS CHARLEY Stop: 06/17/23 20:59 Last Admin: 05/30/23 21:26 Dose: 0.25 mg Documented By: Admin: 05/29/23 21:35 Dose: 0.25 mg Documented By: Admin: 05/28/23 20:56 Dose: 0.25 mg Documented By: Admin: 05/27/23 20:14 Dose: 0.25 mg Documented By: Admin: 05/26/23 20:50 Dose: 0.25 mg Documented By: Admin: 05/25/23 20:45 Dose: 0.25 mg Documented By: Admin: 05/24/23 19:54 Dose: 0.25 mg Documented By: Admin: 05/23/23 21:19 Dose: 0.25 mg Documented By: Admin: 05/22/23 20:49 Dose: 0.25 mg Documented By: Admin: 05/21/23 20:29 Dose: 0.25 mg Documented By: DAMIAN(2) Admin: 05/20/23 21:12 Dose: 0.25 mg Documented By: Admin: 05/19/23 21:18 Dose: 0.25 mg Documented By: Admin: 05/18/23 20:54 Dose: 0.25 mg Documented By: DAMIAN Sevelamer HCl (Sevelamer Hcl 800 Mg Tablet) 800 mg PO TIDM CHARLEY Stop: 06/18/23 07:59 Last Admin: 05/31/23 09:33 Dose: 800 mg Documented By: Admin: 05/30/23 17:25 Dose: 800 mg Documented By: Admin: 05/30/23 13:36 Dose: 800 mg Documented By: Admin: 05/30/23 08:01 Dose: 800 mg Documented By: Admin: 05/29/23 18:01 Dose: 800 mg Documented By: Admin: 05/29/23 13:47 Dose: 800 mg Documented By: Admin: 05/29/23 08:07 Dose: 800 mg Documented By: Admin: 05/28/23 17:27 Dose: 800 mg Documented By: Admin: 05/28/23 13:14 Dose: 800 mg Documented By: Admin: 05/28/23 08:35 Dose: 800 mg Documented By: Admin: 05/27/23 17:21 Dose: 800 mg Documented By: Admin: 05/27/23 12:50 Dose: 800 mg Documented By: Admin: 05/27/23 08:57 Dose: 800 mg Documented By: Admin: 05/26/23 17:34 Dose: 800 mg Documented By: Admin: 05/26/23 12:49 Dose: 800 mg Documented By: Admin: 05/26/23 09:17 Dose: 800 mg Documented By: Admin: 05/25/23 17:29 Dose: 800 mg Documented By: Admin: 05/25/23 17:27 Dose: Not Given Documented By: Admin: 05/25/23 08:38 Dose: 800 mg Documented By: Admin: 05/24/23 18:17 Dose: 800 mg Documented By: Admin: 05/24/23 12:34 Dose: 800 mg Documented By: PABLO Co-signed By: [email or web address]) Admin: 05/24/23 08:58 Dose: 800 mg Documented By: Admin: 05/23/23 16:57 Dose: 800 mg Documented By: Admin: 05/23/23 13:11 Dose: 800 mg Documented By: Admin: 05/23/23 09:14 Dose: 800 mg Documented By: Admin: 05/22/23 17:04 Dose: 800 mg Documented By: Admin: 05/22/23 11:34 Dose: 800 mg Documented By: Admin: 05/22/23 08:50 Dose: 800 mg Documented By: Admin: 05/21/23 17:57 Dose: 800 mg Documented By: Admin: 05/21/23 12:56 Dose: 800 mg Documented By: Admin: 05/21/23 09:32 Dose: 800 mg Documented By: Admin: 05/20/23 17:45 Dose: 800 mg Documented By: Admin: 05/20/23 13:16 Dose: 800 mg Documented By: Admin: 05/20/23 09:22 Dose: 800 mg Documented By: Admin: 05/19/23 18:05 Dose: 800 mg Documented By: Admin: 05/19/23 12:36 Dose: 800 mg Documented By: Admin: 05/19/23 09:06 Dose: 800 mg Documented By: [email or web address] Vitamin D (Cholecalciferol 5,000 Units 125 Mcg Tab) 5,000 units PO DAILY CHARLEY Stop: 06/18/23 08:59 Last Admin: 05/31/23 09:30 Dose: 5,000 units Documented By: Admin: 05/30/23 08:00 Dose: 5,000 units Documented By: Admin: 05/29/23 08:08 Dose: 5,000 units Documented By: Admin: 05/28/23 08:35 Dose: 5,000 units Documented By: Admin: 05/27/23 08:56 Dose: 5,000 units Documented By: Admin: 05/26/23 09:42 Dose: 5,000 units Documented By: Admin: 05/25/23 08:37 Dose: 5,000 units Documented By: Admin: 05/24/23 08:58 Dose: 5,000 units Documented By: Admin: 05/23/23 09:15 Dose: 5,000 units Documented By: Admin: 05/22/23 08:50 Dose: 5,000 units Documented By: Admin: 05/21/23 09:31 Dose: 5,000 units Documented By: Admin: 05/20/23 09:22 Dose: 5,000 units Documented By: Admin: 05/19/23 09:07 Dose: 5,000 units Documented By: ALYSHA Coding Level of Care Code None Diagnoses
--- NOTE | 2023-05-31 12:14 | History & Physical Bridge Note ---
Date of Service May 31, 2023 History & Physical Bridge Note Patient for removal of her CAPD catheter today. I have discussed the risks options and benefits of the procedure with the patient. The patient understands the risks options and benefits and agrees to the procedure. I have examined the patient, reviewed the History & Physical and in the interval since the performance of the History & Physical I have noted the following changes of clinical significance: no changes noted
[2023-05-31] MEDS ORDERED: LIDOCAINE 2% 2 ML VIAL/AMP(20MG/ML) INFIL ONE (13:22)
[2023-05-31] MEDS ORDERED: PROPOFOL IV EMULSION 10 MG/ML 20 ML VIAL IV ONE (13:22)
[2023-05-31] MEDS ORDERED: ONDANSETRON INJ 2 MG/ML 2 ML VIAL ONE (13:22)
[2023-05-31] MEDS ORDERED: fentaNYL citrate PF 100 MCG/2 ML VIAL ONE (13:23)
[2023-05-31] MEDS ORDERED: ATROPINE SULFATE 0.1 MG/ML 10ML SYR IV PRN (16:13)
[2023-05-31] MEDS ORDERED: PROMETHAZINE HCL 6.25 MG in SODIUM CHLORIDE 0.9% 50 ML IV PRN (16:13)
[2023-05-31] MEDS ORDERED: HYDROmorphone INJ 1 MG/ML SYRINGE IV PRN (16:13)
[2023-05-31] MEDS ORDERED: BUPIVACAINE/EPINEPHRINE 0.5% MPF 1:200,000 30 ML VIAL ONE (16:18)
[2023-05-31] MEDS ORDERED: SODIUM BICARBONATE 8.4% INJ 50 MEQ/50 ML VIAL ONE (16:18)
[2023-05-31] MEDS ORDERED: LIDOCAINE 1% LOCAL 20 ML VIAL ONE (16:18)
[2023-05-31] MEDS ORDERED: HEPARIN (PORCINE) 1000 UNIT/ML 10 ML (CATH LAB USE ONLY) ONE (16:18)
[2023-05-31] MEDS ORDERED: PHENYLEPHRINE HCL 10 MG/ML VIAL ONE (16:42)
[2023-05-31] MEDS ORDERED: ROCURONIUM BROMIDE 10 MG/ML 5 ML VIAL IV ONE (16:42)
[2023-05-31] MEDS ORDERED: SUGAMMADEX SODIUM 200 MG/2 ML VIAL IV ONE (16:49)
--- NOTE | 2023-05-31 16:59 | Post Operative Brief Note ---
Immediate Post Op Note v1 Date of Surgery May 31, 2023 Pre & Post Diagnosis Operation Date: 05/31/23 15:20 Pre-Op Diagnosis: end stage renal disease on dialysis Post-Op Diagnosis: end stage renal disease on dialysis I identified the patient and participated in the time-out.: Yes Procedure Operation Date: 05/31/23 15:20 Actual Procedures p Removal of CAPD Catheter(Not Applicable) - Andi Womack MD Surgeon Andi Womack MD Dairy Chemist none Estimated Blood Loss 0 Findings Consistent with Post-Op Diagnosis Anesthesia Type Local Complications none Disposition Accompanied Patient To Recovery: No Disposition: Recovery Room
[2023-05-31] MEDS ORDERED: PROMETHAZINE HCL INJ 25 MG/ML 1 ML VIAL ONE (17:17)
[2023-05-31] MEDS ORDERED: SODIUM CHLORIDE 0.9% 50 ML BAG ONE (17:17)
--- NOTE | 2023-05-31 18:02 | Anesthesiology Progress Note ---
Date of Service May 31, 2023 Anesthesia Post Procedure Vital Signs Vital Signs: Temp Pulse Pulse Pulse Pulse Resp BP 05/31/23 17:45 36.8 C 89 20 05/31/23 17:35 89 18 05/31/23 17:25 92 H 16 05/31/23 17:15 86 12 05/31/23 17:55 89 22 05/31/23 17:08 36.4 C L 91 H 92 H 12 05/31/23 14:07 36.5 C 92 H 20 05/31/23 11:37 36.6 C 93 H 20 05/31/23 07:41 36.6 C 105 H 20 05/31/23 07:38 110 H 05/31/23 04:00 36.9 C 98 H 18 127/73 05/30/23 22:02 105 H 05/31/23 00:00 36.7 C 110 H 18 121/74 05/30/23 19:00 36.7 C 101 H 18 109/68 BP Pulse Ox O2 Del Method O2 Flow Rate 05/31/23 17:45 101/68 94 Room Air 05/31/23 17:35 141/57 H 95 Room Air 05/31/23 17:25 140/69 100 Oxymask 2 05/31/23 17:15 138/71 100 Oxymask 4 05/31/23 17:55 127/65 96 Room Air 05/31/23 17:08 143/71 H 98 Oxymask 6 05/31/23 14:07 135/76 96 Room Air 05/31/23 11:37 137/74 93 Room Air 05/31/23 07:41 122/69 95 Room Air 05/31/23 07:38 05/31/23 04:00 93 Room Air 05/30/23 22:02 05/31/23 00:00 97 Room Air 05/30/23 19:00 96 Room Air Pain Intensity Left Hip: Pain Intensity: 5 Transfer of Care Handoff Completed per policy Notes Mental Status: alert / awake / arousable Patient Amnestic to Procedure: Yes Nausea / Vomiting: adequately controlled Pain: adequately controlled Airway Patency, RR, SpO2: stable & adequate BP & HR: stable & adequate Hydration State: stable & adequate Anesthetic Complications: no major complications apparent and Pt Satisfied with anesthetic care
[2023-05-31] MEDS: GABAPENTIN 600 MG TAB PO SCH (20:15)
[2023-05-31] MEDS: rOPINIRole HCL 0.25 MG TABLET PO SCH (20:15)
[2023-05-31] MEDS: MIRTAZAPINE TAB 15 MG TAB PO SCH (20:15)
[2023-06-01] MEDS: HEPARIN SOD 5,000 UNIT/0.5 ML VIAL SQ SCH ×2 (01:15→13:43)
[2023-06-01] MEDS: ACETAMINOPHEN 500 MG TAB PO SCH ×3 (01:15→13:37)
[2023-06-01] MEDS: oxyCODONE HCL IR 5 MG TAB (IMMEDIATE RELEASE) PO PRN ×2 (05:36→13:37)
[2023-06-01] MEDS: LEVOTHYROXINE SODIUM 50 MCG TABLET PO SCH (05:36)
[2023-06-01 06:17] LABS: Hematocrit (blood only) 28.6 % (37.0-47.0); Hemoglobin 9.4 g/dl (12.0-16.0); Mean Corpuscular Hemoglobin 31.6 pg (25.0-34.0); Mean Corpuscular Hgb Conc 32.9 g/dL (32.0-36.0); Mean Corpuscular Volume 96.3 fL (80.0-100.0); Mean Platelet Volume 9.9 fL (9.4-12.4); Nucleated RBC # (auto) 0.03 K/uL (0.00-0.12); Nucleated RBC % (auto) 0.2 %; Platelet Count 321 K/uL (130-400); RDW Coefficient of Variation 13.1 % (11.5-14.5); RDW Standard Deviation 45.1 fL (36.4-46.3); Red Blood Count 2.97 M/uL (4.20-5.40); White Blood Count 13.13 K/ul (4.8-10.8)
[2023-06-01 06:29] LABS: BUN Creatinine Ratio 11.4 (10-20); Calcium 9.8 mg/dl (8.6-10.3); Creatinine Clr Calc Pharmacy 10.6 ml/min; Est GFR (African American) 8.6 ml/min; Est GFR (Non-African American) 7.4 ml/min; Magnesium 2.3 mg/dl (1.7-2.4); Phosphorus 5.9 mg/dl (2.5-4.9)
[2023-06-01] MEDS ORDERED: SODIUM CHLORIDE 0.9% 1,000 ML IV PRN (07:00)
[2023-06-01] MEDS ORDERED: EPOETIN ALFA 10,000 UNITS/ML VIAL IV ONE (07:00)
--- NOTE | 2023-06-01 08:03 | Consultation ---
Date of Consultation June 01, 2023 History of Present Illness Attending Physician: Jose Armando Durand MD History of Present Illness Patient with cracked clamp on permcath. Will need to be repaired. NO consult required. Allergies Allergy/AdvReac Type Severity Reaction Status Date / Time meperidine Allergy Intermediate hypotension-passed Verified 10/12/22 23:08 out Home Medications Medication Instructions Recorded Confirmed Type bumetanide 2 mg tablet 4 mg PO BID 04/20/22 05/18/23 History cholecalciferol (vitamin D3) 125 125 mcg PO DAILY 04/20/22 05/18/23 History mcg (5,000 unit) tablet (Vitamin D3) amlodipine 10 mg tablet 10 mg PO DAILY 07/23/22 05/18/23 History atorvastatin 40 mg tablet 40 mg PO DAILY 07/23/22 05/18/23 History docusate sodium 100 mg capsule 100 mg PO BID 07/23/22 05/18/23 History food supplemt, lactose-reduced 1 ea PO BID 07/23/22 05/18/23 History (Ensure oral liquid) gabapentin 300 mg capsule 300 mg PO QAM 07/23/22 05/18/23 History gabapentin 300 mg capsule 600 mg PO QPM 07/23/22 05/18/23 History insulin aspar prot-insulin aspart 56 unit subcut QPM 07/23/22 05/18/23 History 100 unit/mL (70-30) subcutaneous pen (Novolog Mix 70-30FlexPen U-100) insulin aspar prot-insulin aspart 66 unit subcut QAM 07/23/22 05/18/23 History 100 unit/mL (70-30) subcutaneous pen (Novolog Mix 70-30FlexPen U-100) isosorbide mononitrate 30 mg 30 mg PO QAM 07/23/22 05/18/23 History tablet,extended release 24 hr levothyroxine 50 mcg tablet 50 mcg PO DAILY 07/23/22 05/18/23 History melatonin 10 mg tablet 10 mg PO HS PRN Sleep 07/23/22 05/18/23 History metoprolol succinate 50 mg 50 mg PO DAILY 07/23/22 05/18/23 History tablet,extended release 24 hr mirtazapine 15 mg tablet 15 mg PO HS 07/23/22 05/18/23 History tramadol 50 mg tablet 50 mg PO Q4 PRN Pain 07/23/22 05/18/23 History clopidogrel 75 mg tablet 75 mg PO QAM #30 tabs 07/25/22 05/18/23 Rx pantoprazole 40 mg tablet,delayed 40 mg PO DAILY #30 tabs 07/25/22 05/18/23 Rx release gentamicin 0.1 % topical cream 1 applic topical DAILY 10/12/22 05/18/23 History polyethylene glycol 3350 17 gram 17 g PO BID PRN Constipation 10/12/22 05/18/23 History oral powder packet (Miralax) aspirin 81 mg tablet,delayed 81 mg PO DAILY 05/18/23 05/18/23 History release duloxetine 20 mg capsule,delayed 20 mg PO DAILY 05/18/23 05/18/23 History release oxybutynin chloride 5 mg tablet 2.5 mg PO DAILY 05/18/23 05/18/23 History ropinirole 0.25 mg tablet 0.25 mg PO HS 05/18/23 05/18/23 History sevelamer carbonate 800 mg tablet 800 mg PO TID 05/18/23 05/18/23 History Patient History Medical History (Updated 05/31/23 @ 09:42 by Patrick Choi MD) Ambulatory dysfunction Anemia Diabetic neuropathy DM type 2 (diabetes mellitus, type 2) Dyspnea on exertion Encounter for pre-operative examination ESRD (end stage renal disease) on dialysis peritoneal dialysis patient Exertional chest pain GERD (gastroesophageal reflux disease) Hyperlipidemia Hypertension Lumbar radiculopathy Peritoneal dialysis catheter in place TIA (transient ischemic attack) Surgical History 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 Family History Other Cancer Social History Smoking Status: Never smoker Hx Alcohol Use: No Hx Substance Use: No Preferred Language: [place] Communication Ability: Effective Office Auditor Required: No Beliefs That Will Affect Care: None marital status: / Current Living Situation: Family Current Living Situation Comment: lives with son, has to go up 14 steps to get into house, then 1 floor Other Information That Helps Us Care for You: No Feels Safe at Home: Yes Safety Concerns: Feels Safe At This Time Assistive Devices: Bedside Commode, Walker and Wheelchair Results & Data Vital Signs (Past 12 Hours) Vital Signs Temp Pulse Resp BP BP Pulse Ox O2 Del Method 06/01/23 02:45 36.4 C L 96 H 16 135/77 93 Room Air 05/31/23 23:08 36.4 C L 85 16 129/72 96 Room Air
--- NOTE | 2023-06-01 08:50 | Pharmacy Report ---
Pharmacy Glycemic Short Note 2 - Date of Service June 01, 2023 - Glycemic Short BSG Results (Last 24 hours): 05/31/23 05/31/23 05/31/23 11:54 14:14 17:10 Glucose POC Glucose 171 H 158 H 121 H 05/31/23 06/01/23 06/01/23 20:18 05:37 08:26 Glucose 115 H POC Glucose 174 H 156 H OUTPATIENT ANTIDIABETIC REGIMEN: * Novolog 70/30 66 units AM, 56 units PM * A1c = 8.9% * However, this result is likely somewhat unreliable in ESRD patients d/t interactions between the A1c analyzing technique and high levels of urea in ESRD, reduced RBC life span, iron deficiency anemia, and EPO administration. HbA1c > 7.5% in ESRD patient may overestimate the extent of hyperglycemia in ESRD patients. ASSESSMENT: 06/01/23 * Patient underwent CAPD catheter removal yesterday * BSGs reasonably well-controlled, will continue current basal scale and Novolog parameters * Hemodialysis today 05/29/23 * Mai received 48 units of insulin yesterday (30 units Lantus + 18 units Novolog) * Fasting BSG 184 mg/dL. Of note, basal insulin was significantly decreased yesterday. Lantus 45 units daily appears to be too much and 30 units likely not enough, therefore I will aim ~36 units/day (18 units BID for easier titration). * Tighten Novolog correction factor. 05/28/23 * BSGs improved yesterday, but unfortunately patient with hypoglycemia this morning (BSG of 68 mg/dL) * Will give ~2/3 of yesterday's basal today and will loosen Novolog parameters * Hemodialysis today 05/25/23 * BSGs yesterday were 116-82-02-123 mg/dL. Patient received 71 units of bolus insulin. NO basal insulin. * Patient is NPO and receiving a Perm cath. She is transitioning from PD to HD. * Lantus 20-30 units tonight based upon BSG. This is less than half what patient was receiving while on PD. * Loosen Novolog to reflect new lantus doses 05/24/23 * Patient's BSGs yesterday were [phone] mg/dL. Patient received 188 units of insulin (70 units of basal and 118 units of bolus). * BSGs today are 103-92 mg/dL. (Patient was in dialysis early this morning thus breakfast not given until later). * Since fasting is trending down significantly, held AM Lantus. Patient to be NPO tomorrow so plan for just 35 units of Lantus today (half of previous day's dose). Can redose tomorrow morning if necessary. * Loosen CR since patient's BSGs trending downwards today. BACKGROUND * 72-year-old female admitted with intertrochanteric fracture of left femur d/t fall out of wheelchair, PMH ESRD on PD, DM, HTN, HLD, stroke, hypothyroidism, GERD, depression, RLS. Patient minimally ambulatory at baseline, mostly uses wheelchair. * Plan for non-surgical treatment at this time. * Outpatient regimen is premixed basal/prandial insulin of NovoLog 70/30 mix insulin. * Pre-mixed insulin is difficult to titrate since it is already in a fixed distribution of basal:prandial insulin. Continuing pre-mixed insulin for admission typically lead to hypoglycemia d/t changing PO status but rapid acting insulin is unable to be held. * Patient started on basal bolus insulin last night on admission, blood sugars at goal, continue to follow and adjust to goal blood sugar. PLAN FOR INPATIENT GLYCEMIC CONTROL: * Basal insulin * Lantus 18 units SC BID (15 units for BSG <110 or NPO) * Bolus insulin * NovoLog per scale ACHS or Q6hrs while NPO * Goal Range: Low 110 mg/dL - High 140 mg/dL * Correction Factor: 15 mg/dL/unit * Nutritional / Prandial insulin per carb ratio of 1 unit per 7 grams CHO consumed
[2023-06-01] MEDS ORDERED: LANTUS PER UNIT CHARGE SC SCH (09:00)
[2023-06-01] MEDS: INSULIN ASPART PER UNIT CHARGE SC SCH ×2 (10:05→13:43)
[2023-06-01] MEDS: SEVELAMER HCL 800 MG TABLET PO SCH ×2 (13:28→13:42)
[2023-06-01] MEDS: DOCUSATE SODIUM 100 MG CAP PO SCH (13:38)
[2023-06-01] MEDS: PANTOprazole 40 MG TAB PO SCH (13:38)
[2023-06-01] MEDS: ATORVASTATIN 40 MG TAB PO SCH (13:39)
[2023-06-01] MEDS: oxyBUTYnin chloride 5 MG TAB PO SCH (13:39)
[2023-06-01] MEDS: DULoxetine HCL 20 MG CAP PO SCH (13:39)
[2023-06-01] MEDS: AMOXICILLIN/CLAVULANATE 500 MG TAB PO SCH (13:40)
[2023-06-01] MEDS: BUMETANIDE 1 MG TAB PO SCH (13:40)
[2023-06-01] MEDS: amLODIPine BESYLATE 5 MG TAB PO SCH (13:41)
[2023-06-01] MEDS: METOPROLOL SUCC 50MG EXT REL TAB PO SCH (13:41)
[2023-06-01] MEDS: ADVANCED PROBIOTIC 1250 MG CAPSULE PO SCH (13:41)
[2023-06-01] MEDS: CHOLECALCIFEROL 5,000 UNITS 125 MCG TAB PO SCH (13:41)
[2023-06-01] MEDS: ISOSORBIDE MONO EXTENDED REL 30 MG TABCR PO SCH (13:42)
[2023-06-01] MEDS: ASPIRIN 81 MG ECTAB PO SCH (13:42)
[2023-06-01] MEDS: GABAPENTIN 300 MG CAP PO SCH (13:42)
[2023-06-01] MEDS: CLOPIDOGREL BISULFATE 75 MG TAB PO SCH (14:42)
--- NOTE | 2023-06-01 14:53 | Discharge Summary ---
Date of Service June 01, 2023 Admission HPI Per Admitting Provider Patient is 72-year-old female with PMH ESRD on PD, insulin-dependent diabetes, HTN, HLD, stroke, hypothyroidism, GERD, depression, RLS presented to ER with complaint of fall and left hip pain today. History obtained from patient and inpatient and outpatient chart review. Patient states mostly uses wheelchair at baseline. She states today she was being pushed in wheelchair and chair slipped off pavement causing pt to slide out of wheelchair landing onto her buttocks. Patient states had instant pain to left hip and left upper leg. She states that she attempted to get up with assistance however was unable to bear weight to left leg and EMS was called. Patient denies numbness or tingling of left leg or foot. Denies hitting head or any other known injury. Does PD nightly at home. States last PD was last night. Makes very little urine. Denies fever/chills, diaphoresis, N/V/D/C, MANNING, dizziness, syncope, neck pain, CP, SOB, palpitations, cough, rhinorrhea, abdominal pain, paresthesias, weakness, extremity edema, rashes, urinary symptoms. Admission Exam Per Admitting Provider Constitutional: Alert orient x3; not in distress. Hard of hearing. Respiratory: Bilateral basal breath sound Cardiovascular: RRR, no murmur, no edema Vessels: no JVD or carotid bruit Chest: normal inspection of chest Abdomen: Soft, nontender. Peritoneal dialysis catheter in place. Musculoskeletal: no cyanosis or clubbing, left leg externally rotated, ROM severely limited due to pain. No overlying bruise on the hip. Skin: no rashes, warm and dry normal turgor Neurologic: PERRL, EOMI, accommodation nl, no face palsy, no dysarthria CN's II- XI intact bilaterally and moves all extremities Psychiatric: A+Ox3, euthymic affect Principal Diagnosis Hip fracture ESRD on HD Aspiration event Discharge Exam General- WD/WN F in NAD oriented x 3, not in distress, speaks in sentences with no effort or accessory muscle use Eyes- anicteric Neck- no JVD Lungs- clear breath sounds bilaterally, no rales/wheezes Heart- rrr ; no murmurs Abdomen- normal bowel sounds, nondistended, soft, nontender Extremities- no pretibial edema, no calf tenderness Neuro- alert, oriented x 3; speech slow but fluent, answers appropriately, appears tired, moves extremities Skin- warm & dry Discharge Data Allergies Allergy/AdvReac Type Severity Reaction Status Date / Time meperidine Allergy Intermediate hypotension-passed Verified 10/12/22 23:08 out Consultations 05/18/23 16:18 ED Decision to Admit Stat 05/18/23 17:48 Consult Anesthesiology Routine Consult Nephrology Routine Consult Orthopedic Surgery Routine 05/22/23 10:52 Consult Vascular Surgery Routine 05/30/23 13:32 Consult Psychiatry Routine Procedures Performed Operation Date: 05/31/23 15:20 Actual Procedures p Removal of CAPD Catheter(Not Applicable) - Andi Womack MD Ordered Studies 05/25/23 07:17 EV cvc insrt tunnel wo prt/parcel post order clerk Routine US EV guide vascular access Routine 05/29/23 13:00 FL video swallow Routine Hospital Course (1) Fall: (1) Fall: (2) Intertrochanteric fracture of left femur: Plan: Patient is 72-year-old female with PMH ESRD on PD, insulin-dependent diabetes, HTN, HLD, stroke, hypothyroidism, GERD, depression, RLS presented to ER with complaint of falling out of wheelchair and left hip pain. Minimally ambulatory at baseline, mostly uses wheelchair Hip x-ray: Mildly displaced left femoral intertrochanteric fracture Knee xray: No acute fractures, tricompartmental osteoarthritis, severe within the medial and patellofemoral compartments. Orthopedics evaluated patient and feels patient high surgical risk and with current minimal baseline ambulation likely will not be surgical candidate. Continue pain management As needed Dilaudid and oxycodone Continue PT and OT (3) End stage renal disease: Plan: ESRD on PD Continue renal meds, Bumex As per nephrology, patient to be transition to hemodialysis for placement at rehab. Vascular surgery has been consulted - PD cath removed on (05/31/2023) by Dr. Shanta Damico managing HD s/p permcath placement to transition to HD as outpatient For HD Sunday Aspiration event May 29, 2023 Chest x-ray: No acute infiltrates or effusion Speech therapy evaluation with video swallow: No arnie aspiration noted Advised patient regarding aspiration precautions Supervised with her meal Weaned off oxygen currently on RA Started Augmentin - cont. Depression - pt reported to staff incr. feelings of depression and would like eval by psychiatry - psych consulted, appreciate their input (4) DM type 2 (diabetes mellitus, type 2): Plan: Insulin-dependent diabetes A1c: 10 on 12/25/2022 Hold home NovoLog 70/30 Basal bolus insulin per protocol Glycemic pharmacy consult A1c of 8.4% (5) History of stroke: Plan: Continue aspirin, Plavix, atorvastatin. (6) Hypertension: Plan: Continue amlodipine, metoprolol succinate, isosorbide (7) Hyperlipidemia: Plan: Continue atorvastatin (8) Hypothyroid: Plan: Continue levothyroxine (9) GERD (gastroesophageal reflux disease): Plan: Continue PPI (10) Depression: Plan: Continue home meds DVT Prophylaxis heparin Disposition Transition to Center care Total Time Total Time Spent Total Time Spent (In Minutes): 40 Discharge Plan Discharge Items Patient Disposition: Transfer [facility] Fac Reason For Visit: HIP FRACTURE Discharge Diagnosis: Hip fracture ESRD on HD Aspiration event Condition on Discharge: Fair Activity: Per Instructions section Non-emergency contact: Primary Care Provider, Surgeon, Specialist and Plate Put In Worker Call non-emergency contact if: you have any medication questions and your symptoms worsen Follow-up/Referrals: Susan Guidry DO [Primary Care Provider] - Chrissie Faye PA-C [Physician Ergonomist] - 06/18/23 3:00 pm Diet: Dialysis Renal and Heart Healthy Addtl Attending Provider Instructions: Follow up with your primary care physician within 1 week. Follow up with nephrology - you will now be on hemodialysis - as was started in the hospital. Finish antibiotic treatment with Augmentin as prescribed. Recommend taking probiotic while taking antibiotic. Read instructions from orthopedic surgery below - you will need to follow up with them as well re: hip fracture. For pain, you can take tylenol. For more severe pain, you can take oxycodone as prescribed, as needed. Make sure to take stool softeners as needed as well. Addtl Court Deputy Provider Instructions: Per orthopedic surgery: non weightbearing on left leg ice to the left hip as needed for pain control Continue with pain medication follow up in our office as scheduled Please call [phone], [facility] with any questions or concerns Pending Studies at Discharge: No Stand-Alone Forms: My [facility] Skilled Items Patient informed of condition?: Yes DNR: Yes Discharge Level of Care: Skilled Communicable Disease: No Discharge Prognosis: Stable Lines: None Urinary Catheter: Yes Medications and DC Order Prescriptions: New amoxicillin-pot clavulanate 500-125 mg Tablet 1 tab PO BIDM 3 Days Qty: 6 0RF heparin, porcine (PF) 5,000 unit/0.5 mL Syringe 5,000 unit subcut Q8H 14 Days Qty: 21 0RF oxycodone 5 mg Tablet 5 mg PO Q6H PRN (Reason: pain) Qty: 10 0RF Advanced Probiotic 625 mg (10 billion cell) Capsule 2 cap PO DAILY 5 Days Qty: 10 0RF polyethylene glycol 3350 [Miralax] 17 gram Powder In Packet 17 g PO DAILY PRN (Reason: constipation) 5 Days Qty: 14 0RF Continued polyethylene glycol 3350 [Miralax] 17 gram Powder In Packet 17 g PO BID PRN (Reason: Constipation) gentamicin 0.1 % cream 1 applic TOPICAL DAILY Rx Instructions: apply to peritoneal cath ropinirole 0.25 mg tablet 0.25 mg PO HS oxybutynin chloride 5 mg tablet 2.5 mg PO DAILY sevelamer carbonate 800 mg tablet 800 mg PO TID aspirin 81 mg Tablet,Delayed Release (Dr/Ec) 81 mg PO DAILY duloxetine 20 mg capsule,delayed release(DR/EC) 20 mg PO DAILY bumetanide 2 mg tablet 4 mg PO BID cholecalciferol (vitamin D3) [Vitamin D3] 125 mcg (5,000 unit) Tablet 125 mcg PO DAILY metoprolol succinate 50 mg tablet extended release 24 hr 50 mg PO DAILY amlodipine 10 mg tablet 10 mg PO DAILY gabapentin 300 mg capsule 300 mg PO QAM gabapentin 300 mg capsule 600 mg PO QPM mirtazapine 15 mg tablet 15 mg PO HS insulin asp prt-insulin aspart [Novolog Mix 70-30FlexPen U-100] 100 unit/mL (70-30) insulin pen 56 unit SUBCUT QPM insulin asp prt-insulin aspart [Novolog Mix 70-30FlexPen U-100] 100 unit/mL (70-30) insulin pen 66 unit SUBCUT QAM atorvastatin 40 mg tablet 40 mg PO DAILY isosorbide mononitrate 30 mg tablet extended release 24 hr 30 mg PO QAM levothyroxine 50 mcg tablet 50 mcg PO DAILY docusate sodium 100 mg Capsule 100 mg PO BID Ensure Liquid 1 ea PO BID melatonin 10 mg Tablet 10 mg PO HS PRN (Reason: Sleep) clopidogrel 75 mg Tablet 75 mg PO QAM Qty: 30 0RF pantoprazole 40 mg Tablet,Delayed Release (Dr/Ec) 40 mg PO DAILY Qty: 30 0RF Held tramadol 50 mg tablet 50 mg PO Q4 PRN (Reason: Pain) Hold Instructions: Resume on 06/18/23. Discharge Orders: Discharge Order (Routine); Ordered 06/01/23 Ordered By: Jose Armando Brand/Other Patient Handouts: Managing Type 2 Diabetes Admission Data Admit Date/Time: 05/18/23 16:37 Attending Provider: Jose Armando Durand Admit Provider: Tien Glez Primary Care Provider: Susan Guidry Other Providers: Lakeisha Benjamin ; Love Pinto ; [facility] ; Ravinder Urbina ; Tien Glez ; Francisco Underwood ; Bozena Farias ; Maurice Dennison ; Andi Womack ; Janny Salazar ; Nargis Alas ; Tae Bowers
--- NOTE | 2023-06-01 19:49 | Dialysis Progress Note ---
Date of Service June 01, 2023 Assessment & Plan (1) ESRD (end stage renal disease) on dialysis: Plan: now on intermittent HD via permcath and for on site HD at [facility]; will not be able to do PD at facility unfortunately and as she is non weight bearing not clear when /if she will leave facility. consider risk of infection > odds of resuming PD in 4-6 wks (which would require her to be d/c home from [facility] to family). -Status post PD catheter removal; appreciate vascular assistance -cont MWF HD > next HD 06/04 -chemistries, hgb acceptable >will need to arrange AVF creation after d/c pt after tx 05/30 had worse tachycardia to 120-130s ; also had ?aspiration event on 05/29; has climbing WBC though all of that said does not appear septic/toxic > low threshold for blood cultures if worsening care reviewed w/ fanta mgt today for d/c dispo care coordinated w/ dr mcnally Admission and Anticipated Discharge Date Admission Date: May 18, 2023 Subjective Seen on dialysis this morning at about 9:30 AM. Tolerating treatment well; no shortness of breath or palpitations; endorses ongoing depression Review of Systems Review of Systems: All systems reviewed & are unremarkable except as noted in Subjective Physical Exam Constitutional: well developed and well nourished Eyes: EOM intact bilaterally ENMT: Ears: no external ear abnormality Nose: no external nose abnormality Mouth: + dry oral mucous membranes Neck: no nuchal rigidity Respiratory: normal respiratory effort Auscultation: + diminished lung sounds Cardiovascular: Rate/Rhythm: regular rhythm and + tachycardic Heart Sounds: + murmur Extremities: no edema Gastrointestinal (Abdomen): Inspection/Auscultation: normal bowel sounds Percussion/Palpation: abdomen soft; abdomen nontender Musculoskeletal: Extremities: strength 5/5 throughout Skin: no rashes, warm and dry Results & Data Vital Signs (Past 12 Hours) Vital Signs Temp Pulse Pulse Pulse Resp BP BP 06/01/23 14:51 36.6 C 114 H 105 H 20 146/80 H 06/01/23 13:00 36.6 C 105 H 06/01/23 12:30 103 H 136/61 06/01/23 12:00 97 H 130/66 06/01/23 11:30 105 H 123/68 06/01/23 09:14 36.6 C 95 H 06/01/23 13:24 36.6 C 114 H 20 146/80 H 06/01/23 10:30 106 H 121/64 06/01/23 11:00 95 H 141/65 H 06/01/23 10:00 97 H 123/61 06/01/23 09:30 94 H 139/70 06/01/23 09:21 92 H 149/73 H 06/01/23 08:14 36.9 C 93 H 16 153/70 H 06/01/23 08:06 95 H BP Pulse Ox O2 Del Method 06/01/23 14:51 153/69 H 95 06/01/23 13:00 153/69 H 06/01/23 12:30 06/01/23 12:00 06/01/23 11:30 06/01/23 09:14 06/01/23 13:24 95 Room Air 06/01/23 10:30 06/01/23 11:00 06/01/23 10:00 06/01/23 09:30 06/01/23 09:21 06/01/23 08:14 92 Room Air 06/01/23 08:06 Laboratory Results 06/01/23 05:37 06/01/23 05:37
== END 2023-06-01 15:15 | DRG 535 ==
LOC: ED 13:33 → SUATTDRO 16:37 → 2N 16:37 → 2W 05-23 17:33

== ENCOUNTER 2024-04-09 14:26 | Inpatient (IN) ==
--- NOTE | 2024-04-09 16:54 | Emergency Department Note ---
Impression & Plan Complications, dialysis, catheter, mechanical ADMIT ED Provider Note HPI: History obtained from patient. The patient is a 73-year-old female who presents the emergency department for evaluation of dialysis catheter. She states that it was moving "slowly" this past Sunday, and today when she was at her session they were unable to perform dialysis and she was advised to come to the emergency department to have the catheter assessed. Patient states that the catheter was placed several months ago at [facility], she states that she lives at [facility] and that is also where she gets her dialysis. On arrival here to the ED the patient appears to be in no acute distress. ROS: - Per HPI Differential Diagnosis: Dialysis catheter obstruction, dialysis catheter malplacement, hyperkalemia, arrhythmia, amongst other potential pathologies. *Outpatient medications and allergy history reviewed. PE: General: Alert HEENT: Normocephalic, trachea midline Eyes: Extraocular eye movement is intact, no scleral erythema Pulmonary: Clear to auscultation bilaterally, no wheezing Cardio: Regular rate and rhythm GI: Abdomen is soft to palpation : No suprapubic tenderness MSK: No evidence of trauma or malformation of the extremities, no edema Skin:, Catheter to left upper chest appears without any surrounding erythema or drainage no evidence of rash Neuro: Alert, no focal deficits Psychiatric: Cooperative INDEPENDENT INTERPRETATIONS: alarm security or surveillance monitor: (As interpreted by myself): - An order was placed for continuous cardiac monitoring - Patient was noted to be in sinus rhythm with a rate of 80 EKG: (As interpreted by myself): Rate: 83 Rhythm: Normal sinus rhythm Intervals: Within normal limits ST changes: No ST elevation Time: 1728 Chest x-ray: (As interpreted by myself): Dialysis catheter appears in place with tip of catheter terminating in the SVC Interventions provided in ED: -Albuterol, calcium gluconate, insulin, dextrose Medical Decision Making: IV was established and lab work obtained, patient was placed on potline monitor. Lab work shows no leukocytosis, hemoglobin is normal, platelet count is normal, CMP shows hyperkalemia at 5.2, creatinine is 5.78, BUN of 49, EKG per my interpretation does not show any evidence of any obvious peaked T waves or ischemic changes or significant arrhythmia. Chest x-ray per my interpretation shows appropriate placement of the dialysis catheter. I did attempt to contact IV team as well as dialysis nursing through the charge nurse and both are unavailable to assist with the catheter. I then did discuss the patient's presentation with on-call nephrology, Dr. Sorenson, who stated routine consultation could be placed and they will evaluate the catheter tomorrow given that the patient is stable with potassium of only 5.2. Case was discussed with the on-call hospitalist, Dr. Anthony, and the patient was placed for admission in stable condition. Consultants/Discussions held with other healthcare providers: -Hospitalist, Dr. Anthony -Division Road Supervisor, Dr. Sorenson Disposition discussion held by myself with: -Patient Diagnosis: 1. Dialysis catheter malfunction, acute 2. Hyperkalemia, acute 3. Elevated BUN 4. End-stage renal disease, on dialysis Disposition: Admission Tae Manning DO Emergency Medicine Past Med/Surg History Problem List (Updated 04/09/24 @ 22:13 by Tae Manning DO) Complications, dialysis, catheter, mechanical (Acute) Hemodialysis catheter malfunction Anemia History of stroke Fall Encounter for pre-operative examination Intertrochanteric fracture of left femur Peritonitis associated with peritoneal dialysis TIA (transient ischemic attack) Inflammation of peritoneal dialysis catheter site (Acute) Abdominal bloating (Acute) Stroke-like symptoms (Acute) End stage renal disease (Acute) Hypertension (Chronic) Diabetic neuropathy (Chronic) GERD (gastroesophageal reflux disease) (Chronic) Lumbar radiculopathy Hyperlipidemia (Chronic) DM type 2 (diabetes mellitus, type 2) (Acute) ESRD (end stage renal disease) on dialysis (Acute) peritoneal dialysis patient Hypothyroid (Chronic) Obesity (BMI 30-39.9) (Chronic) Anxiety (Chronic) History of asthma (Chronic) Depression (Chronic) Arthritis (Chronic) History of skin cancer of unknown type (Chronic) "excised in remote past" Degenerative disc disease, lumbar (Chronic) Chest pain (Acute) S/P cholecystectomy (Chronic) S/P partial hysterectomy (Chronic) H/O hand surgery (Chronic) S/P arthroscopic knee surgery (Chronic) Acute renal failure (Acute) Dehydration (Acute) Hyperglycemia (Acute) Nausea vomiting and diarrhea (Acute) Medical History (Updated 04/09/24 @ 22:13 by Tae Manning DO) Ambulatory dysfunction Dyspnea on exertion Exertional chest pain Peritoneal dialysis catheter in place Surgical History 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 Family History Other Cancer Social History Smoking Status: Never smoker Hx Alcohol Use: No Hx Substance Use: No Preferred Language: Yakut Communication Ability: Effective Sliver Lap Machine Tender Required: No Beliefs That Will Affect Care: None marital status: / Current Living Situation: Longterm Current Living Situation Comment: lives with son, has to go up 14 steps to get into house, then 1 floor Feels Safe at Home: Yes Assistive Devices: Glasses and Wheelchair Allergies Allergies Allergy/AdvReac Type Severity Reaction Status Date / Time meperidine Allergy Intermediate hypotension-passed Verified 04/09/24 20:06 out Home Meds Home Medications Medication Instructions Recorded Confirmed bumetanide 2 mg tablet 4 mg PO BID 04/20/22 04/09/24 cholecalciferol (vitamin D3) 125 125 mcg PO QPM 04/20/22 04/09/24 mcg (5,000 unit) tablet (Vitamin D3) atorvastatin 40 mg tablet 40 mg PO HS 07/23/22 04/09/24 docusate sodium 100 mg capsule 100 mg PO BID 07/23/22 04/09/24 insulin aspar prot-insulin aspart 40 unit subcut QPM 07/23/22 04/09/24 100 unit/mL (70-30) subcutaneous pen (Novolog Mix 70-30FlexPen U-100) insulin aspar prot-insulin aspart 40 unit subcut UD 07/23/22 04/09/24 100 unit/mL (70-30) subcutaneous pen (Novolog Mix 70-30FlexPen U-100) isosorbide mononitrate 30 mg 30 mg PO QPM 07/23/22 04/09/24 tablet,extended release 24 hr levothyroxine 50 mcg tablet 50 mcg PO DAILY 07/23/22 04/09/24 melatonin 10 mg tablet 10 mg PO HS Sleep 07/23/22 04/09/24 metoprolol succinate 50 mg 50 mg PO QPM 07/23/22 04/09/24 tablet,extended release 24 hr tramadol 50 mg tablet 50 mg PO Q4 PRN Pain 5-10 07/23/22 04/09/24 aspirin 81 mg tablet,delayed 81 mg PO HS 05/18/23 04/09/24 release duloxetine 20 mg capsule,delayed 20 mg PO QPM 05/18/23 04/09/24 release oxybutynin chloride 5 mg tablet 2.5 mg PO QPM 05/18/23 04/09/24 ropinirole 0.25 mg tablet 0.25 mg PO HS 05/18/23 04/09/24 acetaminophen 325 mg tablet 650 mg PO Q6 PRN TEMP > 100 04/09/24 04/09/24 acetaminophen 325 mg tablet 650 mg PO Q6 PRN Pain (Scale Score 04/09/24 04/09/24 (Tylenol) 1-4) amlodipine 5 mg tablet 10 mg PO QPM 04/09/24 04/09/24 calcium acetate 667 mg tablet 1,334 mg PO WM 04/09/24 04/09/24 calcium acetate 667 mg tablet 667 mg PO . NEEDED PRN WITH 04/09/24 04/09/24 SNACKS clopidogrel 75 mg tablet 75 mg PO QPM 04/09/24 04/09/24 ferric citrate 210 mg iron tablet 210 mg PO WM 04/09/24 04/09/24 (Auryxia) gabapentin 100 mg capsule 100 mg PO 3XWK 04/09/24 04/09/24 gabapentin 600 mg tablet 600 mg PO QPM 04/09/24 04/09/24 mirtazapine 7.5 mg tablet 7.5 mg PO HS 04/09/24 04/09/24 ondansetron 4 mg disintegrating 4 mg PO Q6H PRN Nausea And Vomiting 04/09/24 04/09/24 tablet pantoprazole 40 mg tablet,delayed 40 mg PO HS 04/09/24 04/09/24 release polyethylene glycol 3350 17 17 g PO UD 04/09/24 04/09/24 gram/dose oral powder (Miralax) polyethylene glycol 3350 17 17 g PO UD 04/09/24 04/09/24 gram/dose oral powder (Miralax) sennosides 8.6 mg-docusate sodium 1 tab-cap PO UD 04/09/24 04/09/24 50 mg tablet (Senokot-S) sennosides 8.6 mg-docusate sodium 1 tab-cap PO UD 04/09/24 04/09/24 50 mg tablet (Senokot-S) Results & Data (ED) Vital Signs Vital Signs - 24 hr 04/09/24 14:33 04/09/24 17:41 04/09/24 17:42 Temperature 36.6 C Temperature Source Temporal Artery Scan Pulse Rate 89 84 Pulse Rate [Apical] Respiratory Rate 18 Blood Pressure 121/76 Blood Pressure [Left Arm] Blood Pressure Mean 91 Blood Pressure Mean [Left Arm] Pulse Oximetry 96 98 Oxygen Delivery Method Room Air Room Air Sepsis Recent Fever Within 48 Hours No Sepsis New/Unexplained Change in Mental Status N/A Sepsis Action Taken by Nursing No Action Required 04/09/24 18:30 Temperature Temperature Source Pulse Rate Pulse Rate [Apical] 80 Respiratory Rate 18 Blood Pressure Blood Pressure [Left Arm] 136/74 Blood Pressure Mean Blood Pressure Mean [Left Arm] 94 Pulse Oximetry 98 Oxygen Delivery Method Room Air Sepsis Recent Fever Within 48 Hours Sepsis New/Unexplained Change in Mental Status Sepsis Action Taken by Nursing Laboratory Data 04/09/24 17:35 04/09/24 17:35 Lab Results 04/09/24 04/09/24 Range/Units 17:35 20:26 WBC 10.23 (4.8-10.8) K/ul RBC 3.93 L (4.20-5.40) M/uL Hgb 12.3 (12.0-16.0) g/dl Hct 37.9 (37.0-47.0) % MCV 96.4 (80.0-100.0) fL MCH 31.3 (25.0-34.0) pg MCHC 32.5 (32.0-36.0) g/dL RDW Std Deviation 48.7 H (36.4-46.3) fL RDW Coeff of [place] 13.8 (11.5-14.5) % Plt Count 305 (130-400) K/uL MPV 10.2 (9.4-12.4) fL Immature Gran % (Auto) 0.5 % Neut % (Auto) 68.2 % Lymph % (Auto) 20.8 % [place] % (Auto) 6.5 % Eos % (Auto) 2.9 % Baso % (Auto) 1.1 % Neut # (Auto) 6.97 H (1.40-6.50) K/uL Lymph # (Auto) 2.13 (1.20-3.40) K/uL [place] # (Auto) 0.67 H (0.11-0.59) K/uL Eos # (Auto) 0.30 (0.00-0.50) K/uL Baso # (Auto) 0.11 (0.00-0.20) K/uL Immature Gran # (Auto) 0.05 (0.01-0.20) K/uL Sodium 135 L (136-145) mmol/L Potassium 5.2 H (3.5-5.1) mmol/L Chloride 94 L (98-107) mmol/L Carbon Dioxide 32 (21-32) mmol/L Anion Gap 9 (3-11) BUN 49 H (6-23) mg/dl Creatinine 5.78 H* (0.6-1.2) mg/dl Est Cr Clr Drug Dosing Not Reportable Est GFR ( Amer) 7.8 ml/min Est GFR (Non-Af Amer) 6.7 ml/min BUN/Creatinine Ratio 8.5 L (10-20) Glucose 175 H (70-99(Fasting)) mg/dl POC Glucose 197 H (70-99) mg/dl Calcium 9.8 (8.6-10.3) mg/dl Total Bilirubin 0.3 (0.2-1.0) mg/dl AST 17 (13-39) U/L ALT 14 (7-52) U/L Alkaline Phosphatase 106 H (34-104) U/L Total Protein 8.7 H (6.0-8.3) gm/dl Albumin 4.3 (3.4-5.0) gm/dl Globulin 4.4 H (2.5-4.0) gm/dl Albumin/Globulin Ratio 1.0 (0.9-2) Lipase 34 (11-82) U/L Administered Medications Discontinued Medications Albuterol (Albuterol 0.5% Neb Soln 2.5 Mg/0.5 Ml Vial) 10 mg NEB NOW STA Stop: 04/09/24 18:32 Last Admin: 04/09/24 19:39 Dose: 10 mg Documented By: NRB Dextrose (Dextrose 50% 50 Ml Syringe) 50 ml IV NOW STA Stop: 04/09/24 18:32 Last Admin: 04/09/24 19:11 Dose: 50 ml Documented By: PENELOPE Insulin Human Regular 10 units (/ Syringe) 9.9 mls @ 3 mls/sec IV ONE STA Stop: 04/09/24 18:32 Last Admin: 04/09/24 19:13 Dose: 3 mls/sec Documented By: PENELOPE Co-signed By: ATA Calcium Gluconate () 1,000 mg in 60 mls @ 240 mls/hr IV NOW STA Stop: 04/09/24 18:45 Last Infusion: 04/09/24 19:33 Dose: Infused Documented By: Admin: 04/09/24 19:15 Dose: 240 mls/hr Documented By: PENELOPE Imaging Data Radiologist's Impression: Chest X-Ray 04/09/24 16:51 XR chest 1V portable HISTORY: Dialysis port malfunction eval placement COMPARISON: Chest 05/30/2023. FINDINGS: No pneumothorax. No pleural effusions. The lungs are clear. The heart is normal in size. A left dual-lumen catheter terminates in the SVC. No acute fractures. IMPRESSION: Left-sided dual-lumen catheter terminates in the SVC. No pneumothorax. ACT 112: Negative or not required by law. Electronically signed by: Bryan Freeman M.D. 04/09/2024 5:08 PM Discharge Plan Visit Data Chief Complaint: Line Placement Stated Complaint: ILLNESS ED Provider: Tae Manning Discharge Problem: Complications, dialysis, catheter, mechanical Patient Disposition: Admitted As Inpatient Discharge Instructions Interventions: ED Discharge Assessment Last Done: 04/09/24 21:07 Discharge Problem: Complications, dialysis, catheter, mechanical Qualifiers: Encounter type: initial encounter Qualified Code(s): T82.49XA - Other complication of vascular dialysis catheter, initial encounter
--- NOTE | 2024-04-09 17:10 | XRay Report ---
XR chest 1V portable HISTORY: Dialysis port malfunction eval placement COMPARISON: Chest 05/30/2023. FINDINGS: No pneumothorax. No pleural effusions. The lungs are clear. The heart is normal in size. A left dual-lumen catheter terminates in the SVC. No acute fractures. IMPRESSION: Left-sided dual-lumen catheter terminates in the SVC. No pneumothorax. ACT 112: Negative or not required by law. Electronically signed by: Bryan Freeman M.D. 04/09/2024 5:08 PM
[2024-04-09 17:50] LABS: Basophils # (auto) 0.11 K/uL (0.00-0.20); Basophils % (auto) 1.1 %; Eosinophils % (auto) 2.9 %; Hematocrit (blood only) 37.9 % (37.0-47.0); Hemoglobin 12.3 g/dl (12.0-16.0); Immature Granulocytes # (auto) 0.05 K/uL (0.01-0.20); Immature Granulocytes % (auto) 0.5 %; Lymphocytes # (auto) 2.13 K/uL (1.20-3.40); Lymphocytes % (auto) 20.8 %; Mean Corpuscular Hemoglobin 31.3 pg (25.0-34.0); Mean Corpuscular Hgb Conc 32.5 g/dL (32.0-36.0); Mean Corpuscular Volume 96.4 fL (80.0-100.0); Mean Platelet Volume 10.2 fL (9.4-12.4); Monocytes # (auto) 0.67 K/uL (0.11-0.59); Monocytes % (auto) 6.5 %; Neutrophils # (auto) 6.97 K/uL (1.40-6.50); Neutrophils % (auto) 68.2 %; Platelet Count 305 K/uL (130-400); RDW Coefficient of Variation 13.8 % (11.5-14.5); RDW Standard Deviation 48.7 fL (36.4-46.3); Red Blood Count 3.93 M/uL (4.20-5.40); White Blood Count 10.23 K/ul (4.8-10.8)
[2024-04-09 18:12] LABS: Alanine Aminotransferase 14 U/L (7-52); Albumin Level 4.3 gm/dl (3.4-5.0); Alkaline Phosphatase 106 U/L (34-104); Anion Gap 9 (3-11); Aspartate Aminotransferase 17 U/L (13-39); BUN Creatinine Ratio 8.5 (10-20); Bilirubin,Total 0.3 mg/dl (0.2-1.0); Blood Urea Nitrogen 49 mg/dl (6-23); Calcium 9.8 mg/dl (8.6-10.3); Carbon Dioxide 32 mmol/L (21-32); Chloride 94 mmol/L (98-107); Est GFR (African American) 7.8 ml/min; Est GFR (Non-African American) 6.7 ml/min; Globulin 4.4 gm/dl (2.5-4.0); Glucose 175 mg/dl (70-99(Fasting)); Lipase 34 U/L (11-82); Potassium 5.2 mmol/L (3.5-5.1); Sodium 135 mmol/L (136-145); Total Protein 8.7 gm/dl (6.0-8.3)
[2024-04-09] MEDS: DEXTROSE 50% 50 ML SYRINGE IV STA (19:11)
[2024-04-09] MEDS: INSULIN HUMAN REGULAR PER UNIT 10 UNITS in SYRINGE 9.9 ML IV STA (19:13)
[2024-04-09] MEDS: CALCIUM GLUCONATE 1,000 MG/60 ML BAG IV STA (19:15)
[2024-04-09] MEDS: ALBUTEROL 0.5% NEB SOLN 2.5 MG/0.5 ML VIAL NEB STA (19:39)
--- NOTE | 2024-04-09 20:35 | History & Physical Report ---
Date of Service April 09, 2024 Assessment & Plan (1) Complications, dialysis, catheter, mechanical: (2) Hemodialysis catheter malfunction: (3) Anemia: (4) End stage renal disease: (5) Hypertension: (6) GERD (gastroesophageal reflux disease): (7) DM type 2 (diabetes mellitus, type 2): (8) Obesity (BMI 30-39.9): Plan Hemodialysis catheter malfunction/ESRD on HD- Patient was referred to the emergency department after having difficulty with catheter while attempting to get dialysis performed on 04/09 at [facility] Patient is in no acute distress and has no complaints Consult her helicopter utility aircrewman, who referred the patient to the ED for assessment. No additional treatment was recommended and nephrology will assess in the a.m. Continue calcium acetate, cholecalciferol, and tramadol Hyperkalemia- Potassium 5.2 on admission From the ED received the followin amp of D50 followed by 10 units of regular insulin IV, calcium gluconate 1 g IV, and then albuterol-nebulizer treatment Repeat laboratories ordered Diabetes mellitus- Hold NovoLog Mix 70/30 nonformulary Placed on glargine 10 units subcu twice daily Placed on Accu-Cheks with NovoLog SSI CAD/hypertension- Continue amlodipine, aspirin, bumetanide, clopidogrel, isosorbide mononitrate, and metoprolol succinate with hold parameters Anxiety/neuropathy/RLS- Continue duloxetine, gabapentin, melatonin, mirtazapine and ropinirole Disposition/CODE STATUS: Full code Expect return to [facility] after discharge History of Present Illness Chief Complaint: The patient was referred to the emergency department by her outpatient helicopter utility aircrewman due to concerns regarding inappropriate functioning of her left chest wall dialysis port when attempting to do dialysis earlier in the day on 04/09 at [facility] Primary Care Provider: [facility] The patient is a 73-year-old female with a past medical history including ESRD on HD, history of CVA, history of left femur fracture, history of peritonitis, hypertension, diabetic neuropathy, GERD, diabetes mellitus type 2,, asthma, L DDD, and history of skin cancer. Patient was referred to the emergency dep artment by her helicopter utility aircrewman, after difficulty with performing dialysis due to a malfunctioning left chest wall dialysis port. The patient otherwise has no complaints. Allergies Allergy/AdvReac Type Severity Reaction Status Date / Time meperidine Allergy Intermediate hypotension-passed Verified 04/09/24 20:06 out Home Medications Medication Instructions Recorded Confirmed Type bumetanide 2 mg tablet 4 mg PO BID 04/20/22 04/09/24 History cholecalciferol (vitamin D3) 125 125 mcg PO QPM 04/20/22 04/09/24 History mcg (5,000 unit) tablet (Vitamin D3) atorvastatin 40 mg tablet 40 mg PO HS 07/23/22 04/09/24 History docusate sodium 100 mg capsule 100 mg PO BID 07/23/22 04/09/24 History insulin aspar prot-insulin aspart 40 unit subcut QPM 07/23/22 04/09/24 History 100 unit/mL (70-30) subcutaneous pen (Novolog Mix 70-30FlexPen U-100) insulin aspar prot-insulin aspart 40 unit subcut UD 07/23/22 04/09/24 History 100 unit/mL (70-30) subcutaneous pen (Novolog Mix 70-30FlexPen U-100) isosorbide mononitrate 30 mg 30 mg PO QPM 07/23/22 04/09/24 History tablet,extended release 24 hr levothyroxine 50 mcg tablet 50 mcg PO DAILY 07/23/22 04/09/24 History melatonin 10 mg tablet 10 mg PO HS Sleep 07/23/22 04/09/24 History metoprolol succinate 50 mg 50 mg PO QPM 07/23/22 04/09/24 History tablet,extended release 24 hr tramadol 50 mg tablet 50 mg PO Q4 PRN Pain 5-10 07/23/22 04/09/24 History aspirin 81 mg tablet,delayed 81 mg PO HS 05/18/23 04/09/24 History release duloxetine 20 mg capsule,delayed 20 mg PO QPM 05/18/23 04/09/24 History release oxybutynin chloride 5 mg tablet 2.5 mg PO QPM 05/18/23 04/09/24 History ropinirole 0.25 mg tablet 0.25 mg PO HS 05/18/23 04/09/24 History acetaminophen 325 mg tablet 650 mg PO Q6 PRN TEMP > 100 04/09/24 04/09/24 History acetaminophen 325 mg tablet 650 mg PO Q6 PRN Pain (Scale Score 04/09/24 04/09/24 History (Tylenol) 1-4) amlodipine 5 mg tablet 10 mg PO QPM 04/09/24 04/09/24 History calcium acetate 667 mg tablet 1,334 mg PO WM 04/09/24 04/09/24 History calcium acetate 667 mg tablet 667 mg PO . NEEDED PRN WITH 04/09/24 04/09/24 History SNACKS clopidogrel 75 mg tablet 75 mg PO QPM 04/09/24 04/09/24 History ferric citrate 210 mg iron tablet 210 mg PO WM 04/09/24 04/09/24 History (Auryxia) gabapentin 100 mg capsule 100 mg PO 3XWK 04/09/24 04/09/24 History gabapentin 600 mg tablet 600 mg PO QPM 04/09/24 04/09/24 History mirtazapine 7.5 mg tablet 7.5 mg PO HS 04/09/24 04/09/24 History ondansetron 4 mg disintegrating 4 mg PO Q6H PRN Nausea And Vomiting 04/09/24 04/09/24 History tablet pantoprazole 40 mg tablet,delayed 40 mg PO HS 04/09/24 04/09/24 History release polyethylene glycol 3350 17 17 g PO UD 04/09/24 04/09/24 History gram/dose oral powder (Miralax) polyethylene glycol 3350 17 17 g PO UD 04/09/24 04/09/24 History gram/dose oral powder (Miralax) sennosides 8.6 mg-docusate sodium 1 tab-cap PO UD 04/09/24 04/09/24 History 50 mg tablet (Senokot-S) sennosides 8.6 mg-docusate sodium 1 tab-cap PO UD 04/09/24 04/09/24 History 50 mg tablet (Senokot-S) Past Med/Surg History Problem List (Updated 04/10/24 @ 02:43 by Devaughn Anthony MD) Complications, dialysis, catheter, mechanical (Acute) Hemodialysis catheter malfunction Anemia History of stroke Fall Encounter for pre-operative examination Intertrochanteric fracture of left femur Peritonitis associated with peritoneal dialysis TIA (transient ischemic attack) Inflammation of peritoneal dialysis catheter site (Acute) Abdominal bloating (Acute) Stroke-like symptoms (Acute) End stage renal disease (Acute) Hypertension (Chronic) Diabetic neuropathy (Chronic) GERD (gastroesophageal reflux disease) (Chronic) Lumbar radiculopathy Hyperlipidemia (Chronic) DM type 2 (diabetes mellitus, type 2) (Acute) Hypothyroid (Chronic) Obesity (BMI 30-39.9) (Chronic) Anxiety (Chronic) History of asthma (Chronic) Depression (Chronic) Arthritis (Chronic) History of skin cancer of unknown type (Chronic) "excised in remote past" Degenerative disc disease, lumbar (Chronic) Chest pain (Acute) S/P cholecystectomy (Chronic) S/P partial hysterectomy (Chronic) H/O hand surgery (Chronic) S/P arthroscopic knee surgery (Chronic) Acute renal failure (Acute) Dehydration (Acute) Hyperglycemia (Acute) Nausea vomiting and diarrhea (Acute) Medical History (Updated 04/10/24 @ 02:43 by Devaughn Anthony MD) ESRD (end stage renal disease) on dialysis peritoneal dialysis patient Ambulatory dysfunction Dyspnea on exertion Exertional chest pain Peritoneal dialysis catheter in place Surgical History 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 Family History Other Cancer Social History Smoking Status: Never smoker Hx Alcohol Use: No Hx Substance Use: No Preferred Language: Japanese Communication Ability: Effective Learning And Development Officer Required: No Beliefs That Will Affect Care: None marital status: / Current Living Situation: Long-Term Current Living Situation Comment: lives with son, has to go up 14 steps to get into house, then 1 floor Other Information That Helps Us Care for You: No Feels Safe at Home: Yes Safety Concerns: Feels Safe At This Time Assistive Devices: Glasses and Wheelchair Review of Systems Review of Systems: The patient denies chest pain, palpitations, shortness of breath, dyspnea on exertion, cough, lower extremity swelling, sore throat, fevers, chills, sweats, nausea, vomiting, diarrhea , constipation, abdominal pain, pelvic pain, blood in urine or stool, dysuria, urinary frequency or urgency, lightheadedness, dizziness, headache, memory loss, loss of consciousness, rash, abnormal bruising or bleeding, imbalance, focal weakness, numbness or tingling in arms or legs, generalized arthralgias or myalgias, back or neck pain, or night sweats. The review of systems is otherwise negative other than for that already noted above, and at least 10 systems have been reviewed. Physical Exam Physical Exam: The patient is awake, alert and oriented 3, well developed and well nourished, normocephalic and atraumatic, lying in bed and in no acute distress. HEENT--PERRL, EOMI, mucous membranes and oropharynx normal Neck--supple. No JVD. No bruits. Thyroid normal, trachea midline, no adenopathy. Heart--normal S1 and S2. No murmurs, rubs or gallops. Lungs--clear bilaterally, no respiratory distress, no accessory muscle use. Abdomen--normal bowel sounds and soft. Nontender. Nondistended, no hernias or masses, no organomegaly. Extremities--Trace pitting edema bilaterally Dermatologic--normal skin turgor, normal color, no abnormal lymph nodes, no rash. Neurologic--cranial nerves II through XII grossly intact. Rheumatologic--normal range of motion. Psychiatric--normal affect. Results & Data Results & Data Vital Signs (Past 12 Hours) Vital Signs Temp Pulse Pulse Resp BP BP Pulse Ox 04/09/24 18:30 80 18 136/74 98 04/09/24 17:42 84 04/09/24 17:41 98 04/09/24 14:33 36.6 C 89 18 121/76 96 O2 Del Method 04/09/24 18:30 Room Air 04/09/24 17:42 04/09/24 17:41 Room Air 04/09/24 14:33 Room Air Laboratory Results Laboratory Results WBC 10.23 K/ul (4.8-10.8) 04/09/24 17:35 RBC 3.93 M/uL (4.20-5.40) L 04/09/24 17:35 Hgb 12.3 g/dl (12.0-16.0) 04/09/24 17:35 Hct 37.9 % (37.0-47.0) 04/09/24 17:35 MCV 96.4 fL (80.0-100.0) 04/09/24 17:35 MCH 31.3 pg (25.0-34.0) 04/09/24 17:35 MCHC 32.5 g/dL (32.0-36.0) 04/09/24 17:35 RDW Std Deviation 48.7 fL (36.4-46.3) H 04/09/24 17:35 RDW Coeff of [place] 13.8 % (11.5-14.5) 04/09/24 17:35 Plt Count 305 K/uL (130-400) 04/09/24 17:35 MPV 10.2 fL (9.4-12.4) 04/09/24 17:35 Immature Gran % (Auto) 0.5 % 04/09/24 17:35 Neut % (Auto) 68.2 % 04/09/24 17:35 Lymph % (Auto) 20.8 % 04/09/24 17:35 [place] % (Auto) 6.5 % 04/09/24 17:35 Eos % (Auto) 2.9 % 04/09/24 17:35 Baso % (Auto) 1.1 % 04/09/24 17:35 Neut # (Auto) 6.97 K/uL (1.40-6.50) H 04/09/24 17:35 Lymph # (Auto) 2.13 K/uL (1.20-3.40) 04/09/24 17:35 [place] # (Auto) 0.67 K/uL (0.11-0.59) H 04/09/24 17:35 Eos # (Auto) 0.30 K/uL (0.00-0.50) 04/09/24 17:35 Baso # (Auto) 0.11 K/uL (0.00-0.20) 04/09/24 17:35 Immature Gran # (Auto) 0.05 K/uL (0.01-0.20) 04/09/24 17:35 Sodium 135 mmol/L (136-145) L 04/09/24 17:35 Potassium 5.2 mmol/L (3.5-5.1) H 04/09/24 17:35 Chloride 94 mmol/L (98-107) L 04/09/24 17:35 Carbon Dioxide 32 mmol/L (21-32) 04/09/24 17:35 Anion Gap 9 (3-11) 04/09/24 17:35 BUN 49 mg/dl (6-23) H 04/09/24 17:35 Creatinine 5.78 mg/dl (0.6-1.2) H* 04/09/24 17:35 Est Cr Clr Drug Dosing Not Reportable 04/09/24 17:35 Est GFR ( Amer) 7.8 ml/min 04/09/24 17:35 Est GFR (Non-Af Amer) 6.7 ml/min 04/09/24 17:35 BUN/Creatinine Ratio 8.5 (10-20) L 04/09/24 17:35 Glucose 175 mg/dl (70-99(Fasting)) H 04/09/24 17:35 POC Glucose 281 mg/dl (70-99) H 04/09/24 23:37 Calcium 9.8 mg/dl (8.6-10.3) 04/09/24 17:35 Phosphorus 2.0 mg/dl (2.5-4.9) L 04/09/24 17:35 Total Bilirubin 0.3 mg/dl (0.2-1.0) 04/09/24 17:35 AST 17 U/L (13-39) 04/09/24 17:35 ALT 14 U/L (7-52) 04/09/24 17:35 Alkaline Phosphatase 106 U/L (34-104) H 04/09/24 17:35 Total Protein 8.7 gm/dl (6.0-8.3) H 04/09/24 17:35 Albumin 4.3 gm/dl (3.4-5.0) 04/09/24 17:35 Globulin 4.4 gm/dl (2.5-4.0) H 04/09/24 17:35 Albumin/Globulin Ratio 1.0 (0.9-2) 04/09/24 17:35 Lipase 34 U/L (11-82) 04/09/24 17:35 Impressions Chest X-Ray 04/09/24 16:51 XR chest 1V portable HISTORY: Dialysis port malfunction eval placement COMPARISON: Chest 05/30/2023. FINDINGS: No pneumothorax. No pleural effusions. The lungs are clear. The heart is normal in size. A left dual-lumen catheter terminates in the SVC. No acute fractures. IMPRESSION: Left-sided dual-lumen catheter terminates in the SVC. No pneumothorax. ACT 112: Negative or not required by law. Electronically signed by: Bryan Freeman M.D. 04/09/2024 5:08 PM Code Status & VTE Plan Code Status Full code VTE Prophylaxis Plan VTE Prophylaxis will be ordered: Yes PG Care Time/CCT Total # of Minutes Spent Total Time Spent with Patient: Total time spent is greater than 50% in coordination of care (as documented) at patient's floor/unit and/or counseling patient: Coding Level of Care Code 50259 INT INP/OBS CARE 375MIN Diagnoses Complications, dialysis, catheter, mechanical T82.49XA Encounter type: initial encounter Hemodialysis catheter malfunction T82.41XA Anemia D64.9 End stage renal disease N18.6 Hypertension I10 GERD (gastroesophageal reflux disease) K21.9 DM type 2 (diabetes mellitus, type 2) E11.9 Obesity (BMI 30-39.9) E66.9 (1) Complications, dialysis, catheter, mechanical Encounter type: initial encounter Qualified Code(s): T82.49XA - Other complication of vascular dialysis catheter, initial encounter
[2024-04-09] MEDS ORDERED: CARBOHYDRATES FOR HYPOGLYCEMIA PO PRN (21:07)
[2024-04-09] MEDS ORDERED: POLYETHYLENE (MIRALAX) 17 GM PACK PO SCH (21:07)
[2024-04-09] MEDS ORDERED: DEXTROSE 50% 50 ML SYRINGE IV PRN (21:07)
[2024-04-09] MEDS ORDERED: ONDANSETRON INJ 2 MG/ML 2 ML VIAL IV PRN (21:07)
[2024-04-09] MEDS ORDERED: GLUCAGON FOR INJ 1 MG VIAL SQ PRN (21:07)
[2024-04-09] MEDS ORDERED: GLUCOSE 40% GEL 15 GM TUBE PO PRN (21:07)
[2024-04-09] MEDS ORDERED: GLUCOSE 10 TAB/TUBE PO PRN (21:07)
[2024-04-09] MEDS ORDERED: CALCIUM ACETATE 667 MG CAP/TAB PO PRN (21:17)
[2024-04-09] MEDS: oxyBUTYnin chloride 5 MG TAB PO SCH (22:59)
[2024-04-09] MEDS: HEPARIN SOD 5,000 UNIT/0.5 ML VIAL SQ SCH (22:59)
[2024-04-09] MEDS: PANTOprazole 40 MG TAB PO SCH (22:59)
[2024-04-09] MEDS: rOPINIRole HCL 0.25 MG TABLET PO SCH (22:59)
[2024-04-09] MEDS: MIRTAZAPINE TAB 15 MG TAB PO SCH (23:02)
[2024-04-09] MEDS: amLODIPine BESYLATE 5 MG TAB PO SCH (23:03)
[2024-04-09] MEDS: ISOSORBIDE MONO EXTENDED REL 30 MG TABCR PO SCH (23:03)
[2024-04-09] MEDS: METOPROLOL SUCC 50MG EXT REL TAB PO SCH (23:03)
[2024-04-09] MEDS: ASPIRIN 81 MG ECTAB PO SCH (23:04)
[2024-04-09] MEDS: BUMETANIDE 1 MG TAB PO SCH (23:05)
[2024-04-09] MEDS: ATORVASTATIN 40 MG TAB PO SCH (23:05)
[2024-04-09] MEDS: CHOLECALCIFEROL 125 MCG (5,000 UNITS) TAB PO SCH (23:06)
[2024-04-09] MEDS: DOCUSATE SODIUM 100 MG CAP PO SCH (23:06)
[2024-04-09] MEDS: CLOPIDOGREL BISULFATE 75 MG TAB PO SCH (23:06)
[2024-04-09] MEDS: GABAPENTIN 600 MG TAB PO SCH (23:07)
[2024-04-09] MEDS: DULoxetine HCL 20 MG CAP PO SCH (23:07)
[2024-04-09] MEDS: DOCUSATE SODIUM/SENNA 50/8.6MG TAB PO SCH (23:09)
[2024-04-09] MEDS: GABAPENTIN 100 MG CAP PO SCH (23:32)
[2024-04-09] MEDS: POLYETHYLENE (MIRALAX) 17 GM PACK PO SCH (23:32)
[2024-04-09] MEDS: INSULIN ASPART PER UNIT CHARGE SC SCH (23:46)
[2024-04-09] MEDS: LANTUS PER UNIT CHARGE SQ SCH (23:46)
--- OUTSIDE RECORDS SUMMARY | 2024-04-10 05:20 | External Medical Summary | Summary of Care ---
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 (Adult - for ages 18 years and over): No Does your family have trouble paying for medicine? (Household - for ages 0-17 years): Not on file Food Insecurity: No Food Insecurity (03/16/2023) Food Insecurity Do you need food for this week? (Adult - for ages 18 years and over): No Are you able to get enough food for your family? (Household - for ages 0-17 years): Not on file Does your family need food this week? (Household - for ages 0-17 years): Not on file Do you always have enough food for your family? (Household - for ages 0-17 years): Not on file Transportation Needs: No Transportation Needs (03/16/2023) Transportation Needs Do you have trouble getting a ride to medical visits or work? (Adult - for ages 18 years and over):Never True Does your family have a hard time getting a ride to doctors visits? (Household - for ages 0-17 years): Not on file Has lack of transportation kept you from medical appointments, meetings, work, or from getting things needed for daily living? Check all that apply. (Adult - for ages 18 years and over): Not on file Do you (or your family) have trouble finding or paying for a ride (transportation)? (Household - for ages 0-17 years): Not on file Social Connections: Socially Integrated (03/16/2023) Social Connections How often do you feel lonely or isolated from those around you? (Adult - for ages 18 years and over): Never Housing Stability: Low Risk (03/16/2023) Housing Stability Do you currently live in a prison or have no steady place to sleep at night? (Adult - for ages 18 years and over): No Do you think you are at risk of becoming homeless? (Adult - for ages 18 years and over): No Does your family worry about paying for your home or becoming homeless? (Household - for ages 0-17 years): Not on file Are you homeless or worried that you might be in the future? (Adult - for ages 18 years and over): Not on file Are you (or your family) homeless or worried that you might be in the future? (Household - for ages0-17 years): Not on file Family History Problem Relation Name Age of Onset Cancer Mother brain and aorta Cancer Father leukemia Cancer Sister cervical Cancer Sister breast Heart Disorder Brother ? Review of patient's allergies indicates: Allergen Reactions Demerol Hypotension No current facility-administered medications for this encounter. Current Outpatient Medications Medication Sig Dispense Refill Gabapentin 300 MG Oral Capsule (Neurontin) Take 1 Capsule by mouth in the morning and 1 Capsule before bedtime. 90 Capsule 0 rOPINIRole HCl 0.25 MG Oral Tablet (Requip) Take 1 Tablet by mouth at bedtime. 90 Tablet 1 FreeStyle Marlene 2 Sensor Use as directed. Every 14 days 2 Each 1 NovoLOG Mix 70/30 FlexPen (70-30) 100 UNIT/ML Subcutaneous Suspension Pen- injector (NovoLOG MIX 70/30) Use 62 units in the morning, and 50 units in the evening. Dose changed on 03/12/2023 (Patient taking differently: Use 60 units in the morning, and 54 units in the evening.) 90 mL 11 DULoxetine HCl 20 MG Oral Capsule Delayed Release Particles (Cymbalta) Take 1 Capsule by mouth in the morning. Do not cut, crush or chew. 30 Capsule 5 FiberCon 625 MG Oral Tablet (Calcium Polycarbophil) Take 1 Tablet by mouth in the morning. Acetaminophen 500 MG Oral Tablet Take 2 Tablets by mouth every 8 hours as needed. Oxybutynin Chloride 5 MG Oral Tablet (Ditropan) Take 0.5 Tablets by mouth in the morning. 30 [id number] Cholecalciferol 50 MCG (2000 UT) Oral Capsule Take 1 Capsule by mouth in the morning. Meclizine HCl 12.5 MG Oral Tablet (Antivert) Take 1 Tablet by mouth 3 times a day as needed for Dizziness. 30 Tablet 1 Sevelamer Carbonate 0.8 GM Oral Packet Take by mouth three times a day with meals. Bumetanide 2 MG Oral Tablet Take 2 Tablets by mouth in the morning and 2 Tablets before bedtime. (Patient taking differently: Take 1 Tablet by mouth in the morning and 1 Tablet before bedtime.) 360 Tablet 3 Clopidogrel Bisulfate 75 MG Oral Tablet (pLAVix) Take 1 Tablet by mouth in the morning. 90 Tablet 3 Pantoprazole Sodium 40 MG Oral Tablet Delayed Release (Protonix) Take 1 Tablet by mouth in the morning. 90 Tablet 3 Ventolin HFA 108 (90 Base) MCG/ACT Inhalation Aerosol Solution Inhale 2 Puffs by mouth every 4 hours as needed for Wheezing. 18 g 3 Pen Gonzales 3" 31G X 5 MM Use as directed with insulin twice daily 200 Each 1 amLODIPine Besylate 10 MG Oral Tablet (Norvasc) Take 1 Tablet (10 mg) by mouth in the morning. 90 Tablet 3 Levothyroxine Sodium 50 MCG Oral Tablet (Levoxyl) Take 1 Tablet (50 mcg) by mouth in the morning. (at least 30 min prior to breakfast or other meds). 90 Tablet 3 Metoprolol Succinate ER 50 MG Oral Tablet Extended Release 24 Hour (toPROL XL) Take 1 Tablet (50 mg) by mouth in the morning. 90 Tablet 3 Ensure High Protein Oral Liquid Take by mouth 2 Bottles daily . 91327 mL 11 Aspirin 81 MG Oral Tablet Delayed Release Take by mouth 1 Tablet in the morning. 90 Tablet 1 OneTouch UltraSoft Lancets Use as directed 4 times a day . Use up to four times a day as directed. E11.9, CBGM not working 100 Each 11 OneTouch Verio In Vitro Strip (Glucose Blood) Use up to 4 times a day E11.9 CBGM not working 100 Strip 11 Docusate Sodium 100 MG Oral Tablet Take 1 Tablet by mouth in the morning and 1 Tablet before bedtime. Polyethylene Glycol 3350 17 GM/SCOOP Oral Powder Take 17 g by mouth in the morning and 17 g before bedtime. As needed. 507 g 1 REVIEW OF SYSTEMS: Negative aside from HPI as above OBJECTIVE: There were no vitals taken for this visit. PHYSICAL EXAM: Constitutional: no acute distress CV: normal rate Chest: breath sounds normal Abdomen: soft LABS: CBC Results: PT INR Results: BUN Results: Lab Results Component Value Date/Time BUN - [facility] 50 (H) 01/12/2023 12:40 PM BUN - [facility] 59 (H) 12/25/2022 09:40 AM BUN - [facility] 36 (H) 09/26/2022 03:01 PM BUN - [facility] 15 08/27/2019 06:11 PM BUN - [facility] 23 (H) 08/14/2019 02:35 PM BUN - [facility] 23 (H) 01/16/2018 12:52 PM BUN POCT - [facility] 34 (H) 03/28/2019 01:02 PM Creatinine Results: Lab Results Component Value Date/Time CREATININE - [facility] 4.2 (H) 01/12/2023 12:40 PM CREATININE - [facility] 5.4 (H) 12/25/2022 09:40 AM CREATININE - [facility] 4.2 (H) 09/26/2022 03:01 PM CREATININE - [facility] 1.7 (H) 08/27/2019 06:11 PM CREATININE - [facility] 2.0 (H) 08/14/2019 02:35 PM CREATININE - [facility] 1.5 (H) 01/16/2018 12:52 PM CREATININE ISTAT 1.8 (H) 03/28/2019 01:02 PM CREATININE, BODY FLUID - [facility] 1.5 01/27/2022 10:05 AM CREATININE, BODY FLUID - [facility] 0.6 01/09/2022 02:57 PM CREATININE, RANDOM URINE - [facility] 48 08/18/2021 10:20 AM CREATININE, RANDOM URINE - [facility] 48 08/18/2021 10:20 AM CREATININE, RANDOM URINE - [facility] 52 03/21/2021 10:46 AM CREATININE, RANDOM URINE - [facility] 171 02/12/2013 08:04 AM CREATININE, URINE 104 01/27/2022 10:05 AM CREATININE, URINE 74 01/09/2022 02:58 PM CREATININE, URINE 24 HOUR 0.572 (L) 01/27/2022 10:05 AM CREATININE, URINE 24 HOUR 0.592 (L) 01/09/2022 02:58 PM Potassium Results: Lab Results Component Value Date/Time POTASSIUM - [facility] 4.1 01/12/2023 12:40 PM POTASSIUM - [facility] 4.7 12/25/2022 09:40 AM POTASSIUM - [facility] 5.4 (H) 09/26/2022 03:01 PM POTASSIUM - [facility] 3.4 (L) 08/27/2019 06:11 PM POTASSIUM - [facility] 4.3 08/14/2019 02:35 PM POTASSIUM - [facility] 4.4 01/16/2018 12:52 PM POTASSIUM, WHOLE BLOOD - [facility] 4.5 10/27/2021 01:35 PM INFORMED CONSENT: Yes PRE-SEDATION ASSESSMENT: Right Tunneled Hemodialysis Catheter Removal Left Tunneled Hemodialysis Catheter Placement Level of sedation planned: Moderate Patient's allergies reviewed: Yes H&P Review / Interval Note Documentation: There is no H&P on file. Difficulty with sedation / anesthesia: No Sleep apnea: No History of snoring: Yes History of difficult intubation: No Decreased ROM neck flexion/extension: No Tracheal deviation: No Decreased ability to open mouth / TMJ: No Loose teeth / dentures / partial: Yes Congenital deformities / abnormalities: No Dysphagia: No Mallampati Classification: II - soft palate, uvula, fauces visible Chest: Clear Heart: Regular Rhythm Adequate Vascular Access: Yes ASA Risk Stratification ([facility]): ASA 3 - Severe systemic disease, definite functional limitations The patient was identified and the procedure verified: Yes The patient was reevaluated immediately prior to the sedation: 02/08/2024 2:00 PM IMPRESSION/PLAN: 73 yo female with PMH of CKD and tunneled site infection. Per ordering clothing patternmaker blood cultures are negative and patient is on Abx. Plan for right chest TDC removal and placement of a left chest TDC. Ok to proceed under moderate sedation Davonte Lundy MD documented in this encounter Nursing Notes * Nicholas Moore RN - 02/08/2024 2:51 PM EDT Pt condition was reassessed by Dr. Davonte Lundy immediately prior to start of moderate sedation and procedure. documented in this encounter OR Notes * OR Surgeon - Davonte Lundy MD - 02/08/2024 3:21 PM EDT [facility]-[address] [address] OPERATIVE REPORT - BRIEF Name: Mai Mathias Date: 02/08/2024 Time: 3:22 PM Location: OR [facility] Service: Interventional radiology Date of Operation: 02/08/2024 Pre-op Diagnosis: tunneled site infection of dialysis catheter Post-op Diagnosis: Same Operation: Removal of right chest tunneled dialysis catheter. Placement of a left IJ tunneled hemodialysis catheter Surgeon: Davonte Lundy MD Assistants: None Anesthesia: Conscious sedation Drains: none Estimated Blood Loss: 5 ml. IV Fluids: N/A. Urine Output: N/A Specimens/Disposition: catheter tip for culture Apparent Intraoperative Complications: NONE Patient Condition: stable Disposition: Post Anesthesia Care Unit Attestation: I performed the procedure documented in this encounter Miscellaneous Notes * Sedation Note - Davonte Lundy MD - 02/08/2024 3:50 PM EDT SEDATION NOTE Post Sedation Evaluation: Cardiovascular status: acceptable Level of consciousness: awake and alert Airway patency: patent Distress - NAD Hydration status - well hydrated Nausea/vomiting - not present Pain Evaluation Pain Assessment Flowsheet Row Most Recent Value Pain Assessment Scale [facility] Adult Scale 0-10 Pain Score 4 (moderate pain) Vital Signs: Temp: 36 C (96.8 F) (02/07 1536) BP: 129/75 (02/07 1536) Pulse: 80 (02/07 1536) Resp: 16 (02/07 1536) SpO2: 97 % (02/07 153) I have personally examined the patient, prescribed the necessary medications as charted, and certify that Mai Mathias is recovered for safe discharge from my face to face care. documented in this encounter Plan of Treatment Upcoming Encounters Date Type Department Care Team (Late st Contact Info) Description 02/13/2024 3:00 PM EDT Appointment Radiology, [address] [phone] Pending Results Name Type Priority Associated Diagnoses Date /Time CULTURE, WOUND, DEEP, AEROBIC AND ANAEROBIC Lab Routine 02/08/2024 2:58 PM EDT Scheduled Orders Name Type Priority Associated Diagnoses Orde r Schedule CULTURE, WOUND, DEEP, AEROBIC AND ANAEROBIC Lab Routine One Time f or 1 Occurrences starting 02/08/2024 until 02/08/2024 Health Maintenance Due Date Last Done Comments Depression Monitoring 1963 Mammogram 1991 Colonoscopy 1996 Fecal Occult Blood Test 1996 Sigmoidoscopy 1996 Zoster Vaccines (1 of 2) 2001 Hepatitis B (2 of 3 - 19+ 3-dose series) 10/23/2022 09/25/2022 *SPIROMETRY ONCE FOR ASTHMA-ADULT 11/18/2022 DTaP,Tdap,and Td Vaccines (2 - Td or Tdap) 11/20/2022 11/20/2012 COVID-19 Vaccine (3 - 2022- season) 2023 12/23/2020, 11/29/2020 HbA1c 06/27/2023 12/25/2022, 020 02/2023, 03/22/2022, Additional history exists TSH 12/26/2023 12/25/2022, 1011/2021, 03/02/2021, Additional history exists Diabetic Foot Exam 03/26/2024 03/26/2023, 1 , 03/16/2021, Additional history exists Influenza Vaccine (FLU shot) (Season Ended) 2024 05/23/2022, 05/20/2021, 07/08/2020, Additional history exists Cologuard 04/26/2024 04/26/2021, 08/3 08/2020, 04/19/2021 Colorectal Cancer Screening 04/26/2024 Diabetic Eye Exam 10/29/2024 10/30/2023, , 02/13/2023, Additional history exists Pneumococcal Vaccine: 65+ Years Completed 02/25/2019, 05/15/2017, 06/26/2013 Albumin/Creatinine Ratio Discontinued 08/18/ 021, 03/21/2021, 02/12/2013 GARDASIL-HPV IMMUNIZATION SERIES Aged Out No longer eligible based on patient's age to complete this topic MENINGOCOCCAL (MENACTRA/MENVEO) Aged Out No longer eligible based on patient's age to complete this topic documented as of this encounter Medical Devices Not on filedocumented as of this encounter Procedures Procedure Name Priority Date/Time Associated Diagnosis Comments IR INTERVENTIONAL RADIOLOGY PROCEDURE IN OR Routine 02/08/2024 3:22 PM EDT GLUCOSE METER, POINT OF CARE SANDIE 02/08/2024 2:07 PM EDT documented in this encounter Results * IR INTERVENTIONAL RADIOLOGY PROCEDURE IN OR (02/08/2024 3:22 PM EDT) 02/08/2024 3:52 PM EDT Impressions [facility] - 02/08/2024 3:50 PM EDT IMPRESSION: Right chest tunneled dialysis catheter removal, tip sent for culture. Placement of a left chest tunneled hemodialysis catheter. PLAN: Follow-up culture results. The patient should remain upright with head of bed at least 30 degrees for 4 hours. The catheter may be used immediately. Narrative [facility] RAD[facility] - 02/08/2024 3:50 PM EDT PROCEDURE: Removal of right chest tunneled hemodialysis catheter Placement of left chest tunneled hemodialysis catheter placement. INDICATION: 73-year-old female with tunnel site infection, here for tunneled dialysis catheter removal and placement on the left. ATTENDING (OPERATING PHYSICIAN): Dr. Davonte Lundy SCRUBLASHON RESIDENT (OPERATING PHYSICIAN): None SUPPORTING PROVIDER (PRIMARY CARE COORDINATOR): None. CONSENT: After a detailed discussion of the procedure, risks, benefits and alternative treatment options, informed consent was obtained. TIME OUT: A time out procedure was performed. The patient's identification was verified. Informed consent with agreement of procedure, site and position was obtained. All necessary equipment was available prior to procedure. CONTRAST: No contrast was administered. COMPLICATIONS: None. ANESTHESIA: Local lidocaine. IV Versed. IV Fentanyl. SEDATION TIME: Start to end: 2521-5837. Qualified nurse sedation observer Nicholas Moore RN. MEDICATIONS: See MAR PROCEDURE DESCRIPTION: The right chest was prepped and draped in usual sterile fashion. The right chest tunneled dialysis catheter was dissected free bluntly and the catheter was removed in its entirety. The tip was transected, swabbed and sent for culture. Pressure was held until hemostasis was achieved and a clean sterile dressing was applied. Ultrasound was used to evaluate the left internal jugular vein. The neck and chest were prepped and draped in the usual sterile fashion. Using real-time ultrasound guidance, the internal jugular vein was punctured utilizing a micropuncture needle. Ultrasound images demonstrated the micropuncture needle tip in the internal jugular vein. Digital ultrasound images were acquired and digitally archived. A 2nd incision was then made in the upper chest. A subcutaneous tunnel was created from the incision site in the chest directed to the internal jugular access above the clavicle. A 14.5 Fr 23 cm cuffed dual lumen hemodialysis catheter was placed in the internal jugular access through the tunnel under fluoroscopic guidance. Fluoroscopic images were digitally archived. The catheter was secured and an occlusive dressing was applied. I personally performed the procedure. FINDINGS: Ultrasound shows a compressible and anechoic left internal jugular vein. The catheter tip is in the right atrium. Removal of right chest tunneled dialysis catheter. Tip sent for culture. Procedure Note Davonte Lundy MD - 02/08/2024 PROCEDURE: Removal of right chest tunneled hemodialysis catheter Placement of left chest tunneled hemodialysis catheter placement. INDICATION: 73-year-old female with tunnel site infection, here fortunneled dialysis catheter removal and placement on the left. ATTENDING (OPERATING PHYSICIAN): Dr. Davonte Lundy SCRUBBED RESIDENT (OPERATING PHYSICIAN): None SUPPORTING PROVIDER (PRIMARY CARE COORDINATOR): None. CONSENT: After a detailed discussion of the procedure, risks, benefits andalternative treatment options, informed consent was obtained. TIME OUT: A time out procedure was performed. The patient's identificationwas verified. Informed consent with agreement of procedure, site andposition was obtained. All necessary equipment was available prior toprocedure. CONTRAST: No contrast was administered. COMPLICATIONS: None. ANESTHESIA: Local lidocaine. IV Versed. IV Fentanyl. SEDATION TIME: Start to end: 2365-3124. Qualified nurse sedation observerJujosue Moore RN. MEDICATIONS: See MAR PROCEDURE DESCRIPTION: The right chest was prepped and draped in usual sterile fashion. Theright chest tunneled dialysis catheter was dissected free bluntly and thecatheter was removed in its entirety. The tip was transected, swabbed andsent for culture. Pressure was held until hemostasis was achieved and aclean sterile dressing was applied. Ultrasound was used to evaluate the left internal jugular vein. The neckand chest were prepped and draped in the usual sterile fashion. Usingreal-time ultrasound guidance, the internal jugular vein was puncturedutilizing a micropuncture needle. Ultrasound images demonstrated themicropuncture needle tip in the internal jugular vein. Digital ultrasoundimages were acquired and digitally archived. A 2nd incision was then madein the upper chest. A subcutaneous tunnel was created from the incisionsite in the chest directed to the internal jugular access above theclavicle. A 14.5 Fr 23 cm cuffed dual lumen hemodialysis catheter wasplaced in the internal jugular access through the tunnel underfluoroscopic guidance. Fluoroscopic images were digitally archived. Thecatheter was secured and an occlusive dressing was applied. I personally performed the procedure. FINDINGS: Ultrasound shows a compressible and anechoic left internal jugular vein.The catheter tip is in the right atrium. Removal of right chest tunneled dialysis catheter. Tip sent forculture. IMPRESSION IMPRESSION: Right chest tunneled dialysis catheter removal, tip sent for culture. Placement of a left chest tunneled hemodialysis catheter. PLAN: Follow-up culture results. The patient should remain upright with head of bed at least 30 degrees for4 hours. The catheter may be used immediately. Davonte Lundy MD RAD SPECIAL PRO CEDURES [facility] RAD[facility]OLOG[facility] * (ABNORMAL) GLUCOSE METER, POINT OF CARE (02/08/2024 2:07 PM EDT) [facility] Glucose Meter 210(H) 70 - 120 mg/dL 02/08/2024 2:10 PM EDT [facility] Blood Whole blood specimen / Unknown 02/08/2024 2:07 PM EDT 02/08/2024 2:10 PM EDT Davonte Lundy MD LAB POINT OF CA RE TEST DOCKED DEVICE UNSOLICITED RESULTS [facility] [address] [place] [address] documented in this encounter Visit Diagnoses Diagnosis ESRD on dialysis (HCC) End stage renal disease Infection of exit site of hemodialysis catheter (HCC) documented in this encounter Administered Medications Inactive Administered Medications - up to 3 most recent administrations Medication Order MAR Action Action Date Dose Rate Site ceFAZolin in dextrose (Ancef) ivpb 2 g 2 g, IV Piggyback, ONCE, 1 dose, On Sun02/08/24 at 1445, Pre-Op New Bag 02/08/2024 2:45 PM EDT 2 g 100 mL/hr NSS infusion Intravenous, at 10 mL/hr, CONTINUOUS, Starting on Sun02/08/24 at 1445, Until Sun02/08/24 at 2006 documented in this encounter Active and Recently Administered Medications Times are shown in EDT. Scheduled Medication Order 02/06/2024 02/07/2024 02/08/2024 ceFAZolin in dextrose (Ancef) ivpb 2 g (COMPLETED) 2 g, IV Piggyback, ONCE, 1 dose, On Sun02/08/24 at 1445, Pre-Op 1445 (New Bag - Prov ider: Ashly Gonzalez RN) Continuous Medication Order 02/06/2024 02/07/2024 02/08/2024 NSS infusion Intravenous, at 10 mL/hr, CONTINUOUS, Starting on Sun02/08/24 at 1445, Until Sun02/08/24 at 2006 1445 (Due) PRN Medication Order 02/06/2024 02/07/2024 02/08/2024 buffered lidocaine 1 % inj (CANCELED) ONCE PRN INTRA PROCEDURE, Starting on Sun02/08/24 at 1519, Until Sun02/08/24 at 1532, Intra-Op 1519 (Given - Provid er: Davonte Lundy MD) fentaNYL (PF) inj (CANCELED) ONCE PRN INTRA PROCEDURE, Starting on Sun02/08/24 at 1505, Until Sun02/08/24 at 1532, Intra-Op 1505 (Given - Provid er: Ashly Gonzalez RN) midazolam (Versed) 2 MG/2ML inj (CANCELED) ONCE PRN INTRA PROCEDURE, Starting on Sun02/08/24 at 1505, Until Sun02/08/24 at 1532, Intra-Op 1505 (Given - Provid er: Ashly Gonzalez RN) sodium citrate 4% (Anticoagulant Sodium Citrate) inj (CANCELED) ONCE PRN INTRA PROCEDURE, Starting on Sun02/08/24 at 1520, Until Sun02/08/24 at 1532, Intra-Op 1520 (Given - Provid er: Davonte Lundy MD) documented in this encounter Advance Directives Documents on File Type Date Recorded Patient Cleaner And Presser Expl anation Advance Directives and Living Will 11/14/2021 ADVANCE DIRECTIVE / LIVING WILL * No Code (Latest Code Status on File) Date Activated Date Inactivated Comments 03/17/2022 4:36 PM 03/22/2022 4:22 PM This order re flects the patients wishes and were consensually agreed upon. * No Code Date Activated Date Inactivated Comments 03/17/2022 4:36 PM 03/17/2022 4:36 PM This order r eflects the patients wishes and were consensually agreed upon. Question Answer Comments Discussion of Advance Directives occurred with: Patient * No Code Date Activated Date Inactivated Comments 11/22/2021 1:01 PM 11/24/2021 8:12 PM This order ref lects the patients wishes and were consensually agreed upon. Question Answer Comments Discussion of Advance Directives occurred with: Patient * No Code Date Activated Date Inactivated Comments 11/11/2021 2:26 PM 11/17/2021 8:48 PM This order r eflects the patients wishes and were consensually agreed upon. Question Answer Comments Discussion of Advance Directives occurred with: Patient * Full Code Date Activated Date Inactivated Comments 12/24/2019 9:52 AM 12/24/2019 5:11 PM This order ref lects the patients wishes and were consensually agreed upon. Healthcare Agents on File Name Relationship Healthcare Agent Relationshi p Communication [facility] t (per Health Care Power of Tube Room Cashier document) Care Teams 3Rd Grade Teacher Relationship Specialty Start Date End Date Susan [place]ry [place] [address] [address] [place] [address] PCP - General Family Medicine 05/01/22 documented as of this encounter
--- OUTSIDE RECORDS SUMMARY | 2024-04-10 05:20 | External Medical Summary | Summary of Care ---
Author Name Unknown Organization [facility] Address [address] [place] [address] Phone [phone] Care Team Providers Care Lost Charge Card Clerk Name Role Phone Susan Guidry DO Primary Care Provider Encounter Details Date Type Department Care Team (Late st Contact Info) Description 02/11/2024 Population Health External Data Unspecified Department Allergies Active Allergy Reactions Criticality Noted Date Comments Demerol Hypotension 06/19/2012 documented as of this encounter (statuses as of 02/12/2024) Medications Medication Sig Dispensed Refills Start Date [...] Take by mouth 2 Bottles daily . 19890 mL 11 05/23/2022 Active amLODIPine Besylate 10 [...] meds). 90 Tablet 3 07/19/2022 Active Pen [place] 11/02" 31G X 5 MM Use as directed with insulin twice daily 200 Each 1 09/07/2022 Active Bumetanide 2 MG Oral TabletIndications:P eritoneal dialysis catheter in place (HCC) Take 2 Tablets by mouth in the [...] 75 MG Oral Tablet (pLAVix)Indications :Atherosclerosis of [place] coronary artery without angina pectoris, unspecified whether [place] or transplanted heart Take 1 Tablet by [...] hemoglobin A1c goal of less than 7.0% (HCC) Use 62 units in the morning, and 50 units in the evening. Dose changed on 03/12/2023 90 mL 11 03/26/2023 Active Additional Information Patient taking differently: Use 60 units in the morning, and 54 units in the evening., Reported on 04/17/2023 FreeStyle Marlene 2 SensorIndications:T ype 2 diabetes mellitus with hemoglobin A1c goal of less than 7.0% (HCC) Use as directed. Every 14 days 2 [...] as of this encounter (statuses as of 02/12/2024) Active Problems Problem Noted Date Diagnosed Date [...] Other specified diseases of spinal cord 08/03/20 22 Hyperparathyroidism due to vitamin D deficiency 06/14/2022 Atherosclerosis of [place] co ronary artery without angina pectoris 06/14/2022 [...] as of this encounter (statuses as of 02/12/2024) Resolved Problems Problem Noted Date Diagnosed Date [...] as of this encounter (statuses as of 02/12/2024) Immunizations Name Administration Dates Next Due COVID-19 mRNA, LNP-s, No Pre serve, 2-Dose Series ([employer]) 12/23/2020,11/29/2020 Pneumococcal Conjugate Vacc, 13 Valent (Prevnar) [...] No 03/16/2023 Does the household have a re gular source of income? (Household - for ages [...] on file documented as of this encounter Functional Status Functional Status Response [...] No 03/17/2022 documented as of this encounter Plan of Treatment Health Maintenance Due Date Last Done Comments Depression Monitoring 1963 Mammogram 1991 Colonoscopy 1996 Fecal Occult Blood Test 1996 Sigmoidoscopy 1996 Zoster Vaccines (1 of 2) 2001 Hepatitis B (2 of 3 - 19+ 3-dose series) 10/23/2022 09/25/2022 *SPIROMETRY ONCE FOR ASTHMA-ADULT 11/18/2022 DTaP,Tdap,and Td Vaccines (2 - Td or Tdap) 11/20/2022 11/20/2012 COVID-19 Vaccine (3 - 2022-24 season) 2023 12/23/2020, 11/29/2020 HbA1c 06/27/2023 12/25/2022, 02/2023, 03/22/2022, Additional history exists TSH 12/26/2023 12/25/2022, 11/2021, 03/02/2021, Additional history exists Diabetic Foot Exam 03/26/2024 03/26/2023, 1 , 03/16/2021, Additional history exists Influenza Vaccine (FLU shot) (Season Ended) 2024 05/23/2022, 05/20/2021, 07/08/2020, Additional history exists Cologuard 04/26/2024 04/26/2021, 03/22, 04/19/2021 Colorectal Cancer Screening 04/26/2024 Diabetic Eye Exam 10/29/2024 10/30/2023, , 02/13/2023, Additional history exists Pneumococcal Vaccine: 65+ Years Completed 02/25/2019, 05/15/2017, 06/26/2013 Albumin/Creatinine Ratio Discontinued 021, 03/21/2021, 02/12/2013 GARDASIL-HPV IMMUNIZATION SERIES Aged Out No longer eligible based on patient's age to complete this topic MENINGOCOCCAL (MENACTRA/MENVEO) Aged Out No longer eligible based on patient's age to complete this topic documented as of this encounter Medical Devices Not on filedocumented as of this encounter Advance Directives Documents on File Type Date Recorded 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
--- OUTSIDE RECORDS SUMMARY | 2024-04-10 05:20 | External Medical Summary | Summary of Care ---
Author Name Unknown Organization [facility] Address [address] [place] [address] Phone [phone] Care Team Providers Care Tufting Supervisor Name Role Phone Susan Guidry DO Primary Care Provider Reason for Visit * Reason Onset Date Comments Health Maintenance 03/20/2024 Encounter Details Date Type Department Care Team (Late st Contact Info) Description 03/20/2024 Telephone Family Practice [facility] [address] [facility] [place] [address] Susan Guidry DO [address] [facility] [place] [address] Health Maintenance Allergies Active Allergy Reactions Criticality Noted Date Comments Demerol Hypotension 06/19/2012 documented as of this encounter (statuses as of 03/20/2024) Medications Medication Sig Dispensed Refills Start Date [...] up to 4 times a day E11.9 CB not working 100 Strip 11 05/01/2022 Active OneTouch UltraSoft Lancets Use as directed 4 times a day . Use up to four times a day as directed. E11.9, CB not working 100 Each 11 05/01/2022 Active Aspirin 81 MG Oral Tablet Delayed Release Take by mouth 1 Tablet in the morning. 90 Tablet 1 05/18/2022 Active Ensure High Protein Oral Liquid Take by mouth 2 Bottles daily . 12224 mL 11 05/23/2022 Active amLODIPine Besylate 10 [...] meds). 90 Tablet 3 07/19/2022 Active Pen [place] 11/02" 31G X 5 MM Use as [...] 75 MG Oral Tablet (pLAVix)Indications :Atherosclerosis of [place] coronary artery without angina pectoris, unspecified whether [place] or transplanted heart Take 1 Tablet by [...] as of this encounter (statuses as of 03/20/2024) Active Problems Problem Noted Date Diagnosed Date [...] to vitamin D deficiency 06/14/2022 Atherosclerosis of [place] co ronary artery without angina pectoris 06/14/2022 [...] which has improved. Nephrology appointment tomorrow. -continue Bumenorris halledwardmer Weakness of right lower extremity 03/17/2022 DM [...] as of this encounter (statuses as of 03/20/2024) Resolved Problems Problem Noted Date Diagnosed Date [...] as of this encounter (statuses as of 03/20/2024) Immunizations Name Administration Dates Next Due COVID-19 mRNA, LNP-s, No Pre serve, 2-Dose Series ([employer]) 12/23/2020,11/29/2020 Pneumococcal Conjugate Vacc, 13 Valent (Prevnar) [...] y our heating, water, or electric bill? (Adult - for ages 18 years and over) Not on file 03/18/2024 Is your family able to pay t he heat, water, or electric bill? (Household - for ages 0-17 years) Not on file 03/18/2024 Does your family have access to good internet? (Household - for ages 0-17 years) Not on file 03/18/2024 Employment Status Answer Date Recorded Are you unemployed or without regular income? No 03/16/2023 Does the household have a re gular source of income? (Household - for ages 0-17 years) Not on file 03/16/2023 Social Connections Answer Date Recorded How often do you feel lonely or isolated from those around you? (Adult - for ages 18 years and over) Not on file 03/18/2024 Financial Resource Strain Answer Date R ecorded [...] No 03/17/2022 documented as of this encounter Miscellaneous Notes * Telephone Encounter - Estephania Shipley LPN - 03/20/2024 10:03 AM EDT Care Gaps Comprehensive Care Outreach Last Office/Telemedicine Visit: 03/26/2023 (in office), 03/16/2023 (telemedicine) Next Office Visit: Visit date not found Hemoglobin AIC Results: Lab Results Component Value Date/Time HEMOGLOBIN A1C - [facility] 10.0 (H) 12/25/2022 09:40 AM HEMOGLOBIN A1C - [facility] 8.6 (H) 09/26/2022 03:01 PM HEMOGLOBIN A1C - [facility] 9.5 (H) 03/22/2022 06:45 AM HEMOGLOBIN A1C - [facility] 6.8 (H) 06/20/2013 08:02 AM HEMOGLOBIN A1C - [facility] 6.5 (H) 02/12/2013 07:57 AM BP Readings from Last 1 Encounters: 02/08/24 149/89 Reviewed Health Maintenance below: Health Maintenance Topic Date Due Depression Monitoring Never done Mammogram Never done Zoster Vaccines (1 of 2) Never done Hepatitis B Vaccine (2 of 3 - 19+ 3-dose series) 10/23/2022 *SPIROMETRY ONCE FOR ASTHMA-ADULT Never done DTaP,Tdap,and Td Vaccines (2 - Td or Tdap) 11/20/2022 COVID-19 Vaccine ( season) 2023 HbA1c 06/27/2023 TSH 12/26/2023 Diabetic Foot Exam 03/26/2024 Colorectal Cancer Screening 04/26/2024 Recapture snf Care Gap Outreach Action Taken: Outreach not indicated documented in this encounter Plan of Treatment Health Maintenance Due Date Last Done Comments Depression Monitoring 1963 Mammogram 1991 Colonoscopy 1996 Fecal Occult Blood Test 1996 Sigmoidoscopy 1996 Zoster Vaccines (1 of 2) 2001 Hepatitis B Vaccine (2 of 3 - 19+ 3-dose series) 10/23/2022 09/25/2022 *SPIROMETRY ONCE FOR ASTHMA-ADULT 11/18/2022 DTaP,Tdap,and Td Vaccines (2 - Td or Tdap) 11/20/2022 11/20/2012 COVID-19 Vaccine ( season) 2023 12/23/2020, 11/29/2020 HbA1c 06/27/2023 12/25/2022, 0202/2023, 03/22/2022, Additional history exists TSH 12/26/2023 12/25/2022, 10/0 11/2021, 03/02/2021, Additional history exists Diabetic Foot Exam 03/26/2024 03/26/2023, 1 , 03/16/2021, Additional history exists Influenza Vaccine (FLU shot) (#1) 2024 05/23/2022, 05/20/2021, 07/08/2020, Additional history exists Cologuard 04/26/2024 04/26/2021, 08/08/2020, 04/19/2021 Colorectal Cancer Screening 04/26/2024 Diabetic Eye Exam 10/29/2024 10/30/2023, , 02/13/2023, Additional history exists Pneumococcal Vaccine: 65+ Years Completed 02/25/2019, 05/15/2017, 06/26/2013 Albumin/Creatinine Ratio Discontinued 021, 03/21/2021, 02/12/2013 HPV (Gardasil) Vaccine Aged Out No lo nger eligible based on patient's age to complete this topic MENINGOCOCCAL (MENACTRA/MENVEO) Aged Out No longer eligible based on patient's age to complete this topic documented as of this encounter Medical Devices Not on filedocumented as of this encounter Advance Directives Documents on File Type Date Recorded 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
--- OUTSIDE RECORDS SUMMARY | 2024-04-10 05:20 | External Medical Summary | Summary of Care ---
Author Name Unknown Organization [facility] Address [address] [place] [address] Phone [phone] Care Team Providers Care Automotive Leasing Sales Representative Name Role Phone Susan Guidry DO Primary Care Provider Encounter Details Date Type Department Care Team (Late st Contact Info) Description 03/11/2024 Population Health External Data Unspecified Department Allergies Active Allergy Reactions Criticality Noted Date Comments Demerol Hypotension 06/19/2012 documented as of this encounter (statuses as of 03/14/2024) Medications Medication Sig Dispensed Refills Start Date [...] Take by mouth 2 Bottles daily . 82751 mL 11 05/23/2022 Active amLODIPine Besylate 10 [...] meds). 90 Tablet 3 07/19/2022 Active Pen [place] 11/02" 31G X 5 MM Use as [...] 75 MG Oral Tablet (pLAVix)Indications :Atherosclerosis of [place] coronary artery without angina pectoris, unspecified whether [place] or transplanted heart Take 1 Tablet by [...] as of this encounter (statuses as of 03/14/2024) Active Problems Problem Noted Date Diagnosed Date [...] to vitamin D deficiency 06/14/2022 Atherosclerosis of [place] co ronary artery without angina pectoris 06/14/2022 [...] as of this encounter (statuses as of 03/14/2024) Resolved Problems Problem Noted Date Diagnosed Date [...] as of this encounter (statuses as of 03/14/2024) Immunizations Name Administration Dates Next Due COVID-19 mRNA, LNP-s, No Pre serve, 2-Dose Series ([employer]) 12/23/2020,11/29/2020 Pneumococcal Conjugate Vacc, 13 Valent (Prevnar) [...] Documents on File Type Date Recorded 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
--- OUTSIDE RECORDS SUMMARY | 2024-04-10 05:20 | External Medical Summary ---
Author Name Unknown Address Unknown Organization [id number]:[facility] [place] [address] [place] [id number] Laboratory Report Ordering Provider Test Date Status VIKI RYAN 02/08/2024 14:58:00 Final Observation Date Value Abnormality Reference (Units) Status Bacteria identified in Specimen by Culture 02/08/2024 14:58:00 No aerobic or anaerobic growth Final Gram Stain 02/08/2024 14:58:00 No squamous epithelial cells seen Final Gram Stain 02/08/2024 14:58:00 Occasional Polymorphonuclear leukocytes Final Gram Stain 02/08/2024 14:58:00 No organisms seen Final Test: Culture, Wound, Deep, Aerobic and Anaerobic
Specimen Source: Chest, Right
Specimen Type: Deep Wound
Specimen Date: 02/08/2024 1458
Result Date: 02/13/2024 1003
Result Status: Final result
Resulting Lab: [facility]
[address]
[place] [address]

CULTURE

No aerobic or anaerobic growth

STAIN

No squamous epithelial cells seen

Occasional Polymorphonuclear leukocytes

No organisms seen

null Performing Location [facility] [place] [address] [place] [id number]
--- OUTSIDE RECORDS SUMMARY | 2024-04-10 05:20 | External Medical Summary ---
Author Name Unknown Address Unknown Organization : Laboratory Report Ordering Provider Test Date Status VIKI RYAN 02/08/2024 14:07:12 Final Observation Date Value Abnormality Reference (Units ) Status Glucose Point of Care 02/08/2024 14:07:12 210 Above high normal 70-120 (mg/dL) Final Performing Location
--- OUTSIDE RECORDS SUMMARY | 2024-04-10 05:20 | External Medical Summary | Summary of Care ---
Author Name Unknown Organization [facility] Address [address] [place] [address] Phone [phone] Care Team Providers Care Bath Tester Name Role Phone Susan Guidry Primary Care Provider Reason for Referral * Precert (Within 10 days (routine)) - Pending Review Specialty Diagnoses / Procedures Referred By Contac t Referred To Contact Radiology Diagnoses Infection of exit site of hemodialysis catheter (HCC) ESRD on dialysis (HCC) Procedures IR VENOUS ACCESS NON-MEDIPORT Bozena Farias MD [address] [place] [id number] Referral ID Status Reason Start Date Expiration Date V isits Requested Visits Authorized [id number] Pending Review 02/08/[phone] Encounter Details Date Type Department Care Team (Late st Contact Info) Description 02/08/2024 Orders Only Nephrology, [facility] [address] [place] [id number] Bozena Farias MD [address] [place] [id number] Infection of exit site of hemodialysis catheter (HCC)*; ESRD on dialysis (HCC) Allergies Active Allergy Reactions Criticality Noted Date Comments Demerol Hypotension 06/19/2012 documented as of this encounter (statuses as of 02/08/2024) Medications Medication Sig Dispensed Refills Start Date [...] Take by mouth 2 Bottles daily . 96207 mL 11 05/23/2022 Active amLODIPine Besylate 10 [...] meds). 90 Tablet 3 07/19/2022 Active Pen [place] 3/16" 31G X 5 MM Use as [...] 75 MG Oral Tablet (pLAVix)Indications :Atherosclerosis of [place] coronary artery without angina pectoris, unspecified whether [place] or transplanted heart Take 1 Tablet by [...] as of this encounter (statuses as of 02/08/2024) Active Problems Problem Noted Date Diagnosed Date [...] to vitamin D deficiency 06/14/2022 Atherosclerosis of [place] co ronary artery without angina pectoris 06/14/2022 [...] as of this encounter (statuses as of 02/08/2024) Resolved Problems Problem Noted Date Diagnosed Date Resolved Date Protein-calorie malnutrition 01/22/2023 03/16/2023 Hypertensive kidney disease with chronic kidney disease stage V 01/13/2022 04/28/2023 Constipation 11/24/2021 11/24/2021 CKD (chronic kidney disease), stage V 11/12/2021 04/28/2023 Last Assessment & Plan: On peritoneal dialysis since 12/09 Peritonitis 11/11/2021 11/24/2021 Diabetic neuropathy 06/19/2012 05/11/20 22 Overview: duplicate Intermittent asthma with rel iever use up to twice per week 06/19/2012 06/14/2022 GERD (gastroesophageal reflux disease) 06/19/2012 03/12/2023 Edema 06/19/2012 04/28/2023 documented as of this encounter (statuses as of 02/08/2024) Immunizations Name Administration Dates Next Due COVID-19 mRNA, LNP-s, No Pre serve, 2-Dose Series ([employer]) 12/23/2020,11/29/2020 Pneumococcal Conjugate Vacc, 13 Valent (Prevnar) [...] No 03/17/2022 documented as of this encounter Progress Notes * Bozena Farias MD - 02/08/2024 7:35 AM EDT Exit site infection in TDC Blood cxs negative; on IV abtx Needs TDC exchange w/ new line at DIFFERENT site and cath tip cx documented in this encounter Plan of Treatment Upcoming Encounters Date Type Department Care Team (Late st Contact Info) Description 02/13/2024 3:00 PM EDT Appointment Radiology, [address] [address] Scheduled Orders Name Type Priority Associated Diagnoses Orde r Schedule IR VENOUS ACCESS NON-MEDIPORT Medical Imaging Routine Infection of exit site of hemodialysis catheter (HCC) ESRD on dialysis (HCC) Expected: 02/08/2024, Expires: 03/09/2025 Scheduled Procedures Name Priority Associated Diagnoses Date/Ti me REMOVAL OF TUNNELED CENTRAL VENOUS CATHETER ESRD on dialysis (HCC) 02/08/2024 2:16 PM EDT INSERT TUNNELED CENTRAL VENOUS CATHETER AGE 5 OR OLDER ESRD on dialysis (HCC) 02/08/2024 2:16 PM EDT Health Maintenance Due Date Last Done Comments [...] Not on filedocumented as of this encounter Visit Diagnoses Diagnosis Infection of exit site of hemodialysis catheter (HCC)- Primary ESRD on dialysis (HCC) End stage renal disease documented in this encounter Advance Directives Documents on File Type Date Recorded 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
--- OUTSIDE RECORDS SUMMARY | 2024-04-10 05:21 | External Medical Summary | Summary of Care ---
Author Name Unknown Organization [facility] Address [address] [place] [address] Phone [phone] Care Team Providers Care Automotive Leasing Sales Representative Name Role Phone Susan Guidry DO Primary Care Provider Reason for Visit * Reason Onset Date Comments Advice 02/04/2024 Encounter Details Date Type Department Care Team (Late st Contact Info) Description 02/04/2024 Telephone Vascular Surg [facility] [address] [place] [address] Services, [facility] [address] [place] [address] Advice Allergies Active Allergy Reactions Criticality Noted Date Comments Demerol Hypotension 06/19/2012 documented as of this encounter (statuses as of 02/04/2024) Medications Medication Sig Dispensed Refills Start Date [...] Take by mouth 2 Bottles daily . 21298 mL 11 05/23/2022 Active amLODIPine Besylate 10 [...] meds). 90 Tablet 3 07/19/2022 Active Pen [place] 11/02" 31G X 5 MM Use as [...] 75 MG Oral Tablet (pLAVix)Indications :Atherosclerosis of [place] coronary artery without angina pectoris, unspecified whether [place] or transplanted heart Take 1 Tablet by [...] as of this encounter (statuses as of 02/04/2024) Active Problems Problem Noted Date Diagnosed Date [...] to vitamin D deficiency 06/14/2022 Atherosclerosis of [place] co ronary artery without angina pectoris 06/14/2022 [...] as of this encounter (statuses as of 02/04/2024) Resolved Problems Problem Noted Date Diagnosed Date [...] as of this encounter (statuses as of 02/04/2024) Immunizations Name Administration Dates Next Due COVID-19 mRNA, LNP-s, No Pre serve, 2-Dose Series ([employer]) 12/23/2020,11/29/2020 Pneumococcal Conjugate Vacc, 13 Valent (Prevnar) [...] have money to get more. Patient declined Sex and Gender Information Value Date Recorded [...] (15 years old or older) Yes 03/17/20 22 Cognitive Status Response Date of Assessm ent Because of a physical, menta l, or emotional condition, do you have serious difficulty concentrating, remembering, or making decisions? (5 years old or older) No 03/17/2022 documented as of this encounter Miscellaneous Notes * Telephone Encounter - Catherine Payan CRNP - 02/04/2024 12:18 PM EDT Noted. * Telephone Encounter - Analy Gregory LPN - 02/04/2024 11:57 AM EDT I called and spoke with Gracie at [phone]. I made her aware of message from Catherine. She statesthat she reached out to IR already and they can not get her in until the . So she is calling around to see what other options they have. They told her if no one else can get her in then they should take her to ED. Analy Gregory LPN 02/04/2024 11:59 AM * Telephone Encounter - Catherine Payan CRNP - 02/04/2024 11:41 AM EDT We have never met this patient Contact Interventional radiology. * Telephone Encounter - Natalia Tellez OSA - 02/04/2024 11:20 AM EDT [facility] looking for someone to pull infected cath and replace. Cath was place by Shanta but he is off for the next 10 days. Please advise if we would be able to remove and replace. 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
--- OUTSIDE RECORDS SUMMARY | 2024-04-10 05:21 | External Medical Summary | Summary of Care ---
Author Name Unknown Organization [facility] Address [address] [place] [address] Phone [phone] Care Team Providers Care Offc Spec Name Role Phone Susan Guidry DO Primary Care Provider Reason for Visit * Reason Onset Date Comments Advice 02/04/2024 Encounter Details Date Type Department Care Team (Late st Contact Info) Description 02/04/2024 Telephone Vascular Surg [facility] [address] [place] [address] Services, [facility] [address] [place] [address] Advice Allergies Active Allergy Reactions Criticality Noted [...] Take by mouth 2 Bottles daily . 85360 mL 11 05/23/2022 Active amLODIPine Besylate 10 [...] meds). 90 Tablet 3 07/19/2022 Active Pen [place] 11/02" 31G X 5 MM Use as [...] 75 MG Oral Tablet (pLAVix)Indications :Atherosclerosis of [place] coronary artery without angina pectoris, unspecified whether [place] or transplanted heart Take 1 Tablet by [...] in the evening., Reported on 04/17/2023 FreeStyle Amrlene 2 SensorIndications:T ype 2 diabetes mellitus with [...] to vitamin D deficiency 06/14/2022 Atherosclerosis of [place] co ronary artery without angina pectoris 06/14/2022 [...] mRNA, LNP-s, No Pre serve, 2-Dose Series (Vedicis) 12/23/2020,11/29/2020 Pneumococcal Conjugate Vacc, 13 Valent (Prevnar) [...] I called and spoke with Gracie at [phone]. I made her aware of message from [...] Documents on File Type Date Recorded Patient Engine Hostler Expl anation Advance Directives and Living Will [...] Agents on File Name Relationship Healthcare Agent [facility] Communication [facility] Health [facility] Agen [facility] (per Health Care Power of Cooker Casing document) Care Teams Offc Spec Relationship Specialty Start Date End Date Susan Guidry DO [address] [place] [address] PCP - General Family Medicine 05/01/22 documented as of this encounter
--- OUTSIDE RECORDS SUMMARY | 2024-04-10 05:21 | External Medical Summary | Summary of Care ---
Author Name Unknown Organization [facility] Address [address] [place] [address] Phone [phone] Care Team Providers Care Hop Sorter Name Role Phone Susan Guidry Primary Care Provider Reason for Referral * Precert (Within 10 days (routine)) - Pending Review Specialty Diagnoses / Procedures Referred By Contac t Referred To Contact Radiology Diagnoses ESRD on dialysis (HCC) Procedures IR VENOUS ACCESS NON-MEDIPORT Bozena Farias MD [address] [place] [id number] Referral ID Status Reason Start Date Expiration Date V isits Requested Visits Authorized [id number] Pending Review 02/05/2024 999 999 Reason for Visit * Reason Onset Date Comments Referral Requested by Specialist 02/04/2024 Encounter Details Date Type Department Care Team (Late st Contact Info) Description 02/04/2024 Telephone Nephrology, [place] [address] [place] [address] Bozena Farias MD [address] [place] [id number] Referral Requested by Specialist Allergies Active Allergy Reactions Criticality Noted Date [...] Take by mouth 2 Bottles daily . 28860 mL 11 05/23/2022 Active amLODIPine Besylate 10 [...] meds). 90 Tablet 3 07/19/2022 Active Pen [place] 3" 31G X 5 MM Use as [...] 75 MG Oral Tablet (pLAVix)Indications :Atherosclerosis of [place] coronary artery without angina pectoris, unspecified whether [place] or transplanted heart Take 1 Tablet by [...] to vitamin D deficiency 06/14/2022 Atherosclerosis of [place] co ronary artery without angina pectoris 06/14/2022 [...] 12/09 Peritonitis 11/11/2021 11/24/2021 Diabetic neuropathy 06/19/2012 09/22/20 22 Overview: duplicate Intermittent asthma with rel [...] encounter Miscellaneous Notes * Telephone Encounter - Laurel Foster RN - 02/04/2024 2:09 PM EDT Message received from Dialysis nurse.Dr Farias is requesting that tunneled cath be removed due toinfection. documented in this encounter Plan of Treatment Upcoming Encounters Date Type Department Care Team (Late st Contact Info) Description 02/08/2024 9:30 AM EDT Appointment Radiology, [address] [place] [address] Scheduled Orders Name Type Priority Associated Diagnoses Orde r Schedule IR VENOUS ACCESS NON-MEDIPORT Medical Imaging Routine ESRD on dialysis (HCC) Expected: 02/05/2024 (Approximate), Expires: 03/05/2025 Health Maintenance Due Date Last Done Comments [...] 03/22/2022, Additional history exists TSH 12/26/2023 12/25/2022, 100 11/2021, 03/02/2021, Additional history exists Diabetic Foot [...] as of this encounter Visit Diagnoses Diagnosis ESRD on dialysis (HCC)- Primary End stage renal disease documented in this encounter Advance Directives Documents on File Type Date Recorded Patient Customer Service Attendant Expl anation Advance Directives and Living Will [...] Agents on File Name Relationship Healthcare Agent [facility] p Communication [facility] Child Health Care Agen t (per Health Care Power of Security Support Analyst document) Care Teams Hop Sorter Relationship Specialty Start Date End Date Susan Guidry DO [address] [place] [address] PCP - General Family Medicine 05/01/22 documented as of this encounter
--- OUTSIDE RECORDS SUMMARY | 2024-04-10 05:21 | External Medical Summary | Summary of Care ---
Author Name Unknown Organization [facility] Address [address] [place] [address] Phone [phone] Care Team Providers Care Roll Over Press Operator Name Role Phone Facundomarlen Susan Morocholy Primary Care Provider Reason for Visit * Reason Onset Date Comments Scheduling 02/06/2024 Tunneled dialysi s catheter removal and placement Encounter Details Date Type Department Care Team (Late st Contact Info) Description 02/06/2024 Telephone Radiology, [facility] [address] [place] [address] Yolande Banks, RN Scheduling (Tunneled dialysis catheter rem... Allergies Active Allergy Reactions Criticality Noted Date Comments Demerol Hypotension 06/19/2012 documented as of this encounter (statuses as of 02/06/2024) Medications Medication Sig Dispensed Refills Start Date [...] Take by mouth 2 Bottles daily . 83858 mL 11 05/23/2022 Active amLODIPine Besylate 10 [...] meds). 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 pectoris, unspecified whether [place] or transplanted heart Take 1 Tablet by [...] as of this encounter (statuses as of 02/06/2024) Active Problems Problem Noted Date Diagnosed Date [...] to vitamin D deficiency 06/14/2022 Atherosclerosis of [place] co ronary artery without angina pectoris 06/14/2022 [...] as of this encounter (statuses as of 02/06/2024) Resolved Problems Problem Noted Date Diagnosed Date [...] as of this encounter (statuses as of 02/06/2024) Immunizations Name Administration Dates Next Due COVID-19 mRNA, LNP-s, No Pre serve, 2-Dose Series (Dynamic Yield) 12/23/2020,11/29/2020 Pneumococcal Conjugate Vacc, 13 Valent (Prevnar) [...] encounter Miscellaneous Notes * Telephone Encounter - Yolande Banks RN - 02/06/2024 10:14 AM EDT [facility] dialysis nurse Gracie called to schedule patient's dialysis catheter removal and replacement. Per Dr. Farias, it is ok to perform these procedures on an outpatient basis, givingpatient a 2 day line holiday. Patient is scheduled on 02/12 @ 1500 for removal in radiology and on 02/15/24 in the AM in OR for placement. Patient identified by: name and date of Person taught: Caregiver DINORAH Bowman METHOD: Lecture-telephone interview PATIENT INSTRUCTIONS GIVEN (for TDC removal): -Location and check-in instructions -No other instructions needed Verbalizes understanding of education: Yes Procedure date at time of Imaging Encounter: 02/13/24 @ 1500 PATIENT INSTRUCTIONS GIVEN (for TDC placement): - Medication Instructions Reviewed: Take BSBS in AM, if 200 or less, please hold insulin in AM. If 201 or greater, please give 1/2 regular dose of insulin. Hold any diuretics or antidiabetic medications in AM as well. - NPO Instructions Reviewed, pt to stop eating 8 hours prior to procedure and stop drinking 2 hoursprior to procedure. -Shorthand Teacher required -Location and check-in instructions Verbalizes understanding of education: Yes Procedure date at time of Imaging Encounter: 02/15/24 Laterality confirmed as Not Applicable Does the patient have a yellow bar? did not The Caregiver was given the opportunity to ask questions concerning the procedure. Signature: Yolande Banks RN 02/06/2024 documented in this encounter Plan of Treatment Upcoming Encounters Date Type Department Care Team (Late st Contact Info) Description 02/13/2024 3:00 PM EDT Appointment Radiology, [address] [address] Health Maintenance Due Date Last Done Comments [...] Documents on File Type Date Recorded Patient Loom Fixer Helper Expl anation Advance Directives and Living Will [...] Relationship Healthcare Agent Relationshi p Communication [facility] Child Health Care Agen t (per Health Care Power of Store Merchandiser document) Care Teams Roll Over Press Operator Relationship Specialty Start Date End Date Susan Guidry DO [address] [place] [address] PCP - General Family Medicine 05/01/22 documented as of this encounter
--- OUTSIDE RECORDS SUMMARY | 2024-04-10 05:21 | External Medical Summary | Summary of Care ---
Author Name Unknown Organization [facility] Address [address] [place] [address] Phone [phone] Care Team Providers Care Behavior Management Specialist Name Role Phone Susan Guidry DO Primary Care Provider Encounter Details Date Type Department Care Team (Late st Contact Info) Description 02/06/2024 Population Health External Data Unspecified Department Allergies [...] Take by mouth 2 Bottles daily . 95073 mL 11 05/23/2022 Active amLODIPine Besylate 10 [...] meds). 90 Tablet 3 07/19/2022 Active Pen [place] 11/02" 31G X 5 MM Use as [...] 75 MG Oral Tablet (pLAVix)Indications :Atherosclerosis of [place] coronary artery without angina pectoris, unspecified whether [place] or transplanted heart Take 1 Tablet by [...] to vitamin D deficiency 06/14/2022 Atherosclerosis of [place] co ronary artery without angina pectoris 06/14/2022 [...] mRNA, LNP-s, No Pre serve, 2-Dose Series (CrowdScannerr) 12/23/2020,11/29/2020 Pneumococcal Conjugate Vacc, 13 Valent (Prevnar) [...] as of this encounter Plan of Treatment Upcoming Encounters Date Type Department Care Team (Late st Contact Info) Description 02/08/2024 9:30 AM EDT Appointment Radiology, [address] [address] Health Maintenance Due Date Last Done Comments [...] Documents on File Type Date Recorded Patient Debt Collector Expl anation Advance Directives and Living Will [...] Name Relationship Healthcare Agent Relationshi p Communication [facility] Agen t (per Health Care Power of Marine Fisheries Technician document) Care Teams Behavior Management Specialist Relationship Specialty Start Date End Date Susan Guidry DO [address] [place] [address] PCP - General Family Medicine 05/01/22 documented as of this encounter
--- OUTSIDE RECORDS SUMMARY | 2024-04-10 05:21 | External Medical Summary | Summary of Care ---
Author Name Unknown Organization [facility] Address [address] [place] [address] Phone [phone] Care Team Providers Care Cube Cutter Name Role Phone Susan Guidry Primary Care Provider Reason for Visit * Reason Onset Date Comments Outpatient Testing 02/06/2024 Encounter Details Date Type Department Care Team (Late st Contact Info) Description 02/06/2024 Telephone Nephrology, [place] [address] [place] [address] Bozena Farias MD [address] [facility] [place] [address] Outpatient Testing Allergies Active Allergy Reactions Criticality Noted Date [...] Take by mouth 2 Bottles daily . 62443 mL 11 05/23/2022 Active amLODIPine Besylate 10 [...] meds). 90 Tablet 3 07/19/2022 Active Pen [place] 316" 31G X 5 MM Use as directed [...] 75 MG Oral Tablet (pLAVix)Indications :Atherosclerosis of [place] coronary artery without angina pectoris, unspecified whether [place] or transplanted heart Take 1 Tablet by [...] to vitamin D deficiency 06/14/2022 Atherosclerosis of [place] co ronary artery without angina pectoris 06/14/2022 [...] mRNA, LNP-s, No Pre serve, 2-Dose Series ([employer] Networks) 12/23/2020,11/29/2020 Pneumococcal Conjugate Vacc, 13 Valent (Prevnar) [...] Telephone Encounter - Laurel Foster RN - 02/06/2024 11:48 AM EDT Nurse dealership manager spoke with IR nurse and it is noted to culture cath tip upon removal. * Telephone Encounter - Laurel Foster RN - 02/06/2024 11:48 AM EDT ----- Message from Bozena Farias MD sent at 02/06/2024 10:34 AM EDT ----- Regarding: order for catheter tip culture pls [facility] centre care dialysis pt is to have her TDC pulled 02/12 >> pls place order for that date to have catheter tip cultured; pls also send message to nurse and/or provider doing that procedure so they know order is in >> remind them super important to have tip cx'd * Telephone Encounter - Laurel Foster RN - 02/06/2024 10:55 AM EDT ----- Message from Bozena Farias MD sent at 02/06/2024 10:34 AM EDT ----- Regarding: order for catheter tip culture pls [facility] care dialysis pt is to have her TDC pulled 02/12 >> pls place order for that date to have catheter tip cultured; pls also send message to nurse and/or provider doing that procedure so they know order is in >> remind them super important to have tip cx'd documented in this encounter Plan of Treatment Upcoming Encounters Date Type Department Care Team (Late st Contact Info) Description 02/13/2024 3:00 PM EDT Appointment Radiology, [address] [address] Health Maintenance Due Date Last [...] 07/08/2020, Additional history exists Cologuard 04/26/2024 04/26/2021, 0808/2020, 04/19/2021 Colorectal Cancer Screening 04/26/2024 Diabetic Eye [...] Documents on File Type Date Recorded Patient Fast Food Sales Assistant Expl anation Advance Directives and Living Will [...] Agents on File Name Relationship Healthcare Agent [facility] Communication [facility] Child Health Care Agen t (per Health Care Power of Quill Winder document) Care Teams Cube Cutter Relationship Specialty Start Date End Date Susan Guidry DO [address] [place] [address] PCP - General Family Medicine 05/01/22 documented as of this encounter
--- OUTSIDE RECORDS SUMMARY | 2024-04-10 05:22 | External Medical Summary | Summary of Care ---
Author Name Unknown Organization [facility] Address [address] [place] [address] Phone [phone] Care Team Providers Care Oyster Unloader Name Role Phone Susan Guidry DO Primary Care Provider Reason for Visit * Reason Onset Date Comments Advice 02/04/2024 Encounter Details Date Type Department Care Team (Late st Contact Info) Description 02/04/2024 Telephone Vascular Surg [facility] [address] [place] [address] Services, [facility] [address] [place] [address] Advice Allergies Active Allergy Reactions Criticality Noted [...] Take by mouth 2 Bottles daily . 24605 mL 11 05/23/2022 Active amLODIPine Besylate 10 [...] meds). 90 Tablet 3 07/19/2022 Active Pen [place] 11/02" 31G X 5 MM Use as [...] 75 MG Oral Tablet (pLAVix)Indications :Atherosclerosis of [place] coronary artery without angina pectoris, unspecified whether [place] or transplanted heart Take 1 Tablet by [...] to vitamin D deficiency 06/14/2022 Atherosclerosis of [place] co ronary artery without angina pectoris 06/14/2022 [...] mRNA, LNP-s, No Pre serve, 2-Dose Series (Petbrosia) 12/23/2020,11/29/2020 Pneumococcal Conjugate Vacc, 13 Valent (Prevnar) [...] I called and spoke with Gracie at [phone]. I made her aware of message from [...] cath and replace. Cath was place by hSanta but he is off for the next [...] Documents on File Type Date Recorded Patient Reconciliation Analyst Expl anation Advance Directives and Living Will [...] Agents on File Name Relationship Healthcare Agent [facility] Communication [facility] Health Care Agen t (per Health Care Power of Electric Detector Operator document) Care Teams Oyster Unloader Relationship Specialty Start Date End Date Susan Guidry DO [address] [place] [address] PCP - General Family Medicine 05/01/22 documented as of this encounter
--- OUTSIDE RECORDS SUMMARY | 2024-04-10 05:22 | External Medical Summary | Summary of Care ---
Author Name Unknown Organization [facility] Address [address] [place] [address] Phone [phone] Care Team Providers Care Library Cataloging Technician Name Role Phone Susan Guidry DO Primary Care Provider Reason for Visit * Reason Onset Date Comments Advice 02/04/2024 Encounter Details Date Type Department Care Team (Late st Contact Info) Description 02/04/2024 Telephone Vascular Surg [facility] [address] [place] [address] Services, [facility] [address] [place] [address] Advice Allergies Active Allergy Reactions Criticality Noted [...] Take by mouth 2 Bottles daily . 18718 mL 11 05/23/2022 Active amLODIPine Besylate 10 [...] meds). 90 Tablet 3 07/19/2022 Active Pen [place] 11/02" 31G X 5 MM Use as [...] 75 MG Oral Tablet (pLAVix)Indications :Atherosclerosis of [place] coronary artery without angina pectoris, unspecified whether [place] or transplanted heart Take 1 Tablet by [...] to vitamin D deficiency 06/14/2022 Atherosclerosis of [place] co ronary artery without angina pectoris 06/14/2022 [...] mRNA, LNP-s, No Pre serve, 2-Dose Series (WhoSay) 12/23/2020,11/29/2020 Pneumococcal Conjugate Vacc, 13 Valent (Prevnar) [...] I called and spoke with Gracie at [phone]. I made her aware of message from [...] Documents on File Type Date Recorded Patient Naval Aircrewman Operator Expl anation Advance Directives and Living Will [...] Agents on File Name Relationship Healthcare Agent [facility] Communication [facility] Health Care Agen t (per Health Care Power of Architectural Intern document) Care Teams Library Cataloging Technician Relationship Specialty Start Date End Date Susan Guidry DO [address] [place] [address] PCP - General Family Medicine 05/01/22 documented as of this encounter
--- OUTSIDE RECORDS SUMMARY | 2024-04-10 05:22 | External Medical Summary | Summary of Care ---
Author Name Unknown Organization [facility] Address [address] [facility] [place] [address] Phone [phone] Care Team Providers Care Orchid Transplanter Name Role Phone Susan Guidry DO Primary Care Provider Encounter Details Date Type Department Care Team (Late st Contact Info) Description 01/08/2024 Population Health External Data Unspecified Department Allergies Active Allergy Reactions Criticality Noted Date Comments Demerol Hypotension 06/19/2012 documented as of this encounter (statuses as of 01/09/2024) Medications Medication Sig Dispensed Refills Start Date [...] Take by mouth 2 Bottles daily . 90343 mL 11 05/23/2022 Active amLODIPine Besylate 10 [...] meds). 90 Tablet 3 07/19/2022 Active Pen [place] 3" 31G X 5 MM Use as [...] 75 MG Oral Tablet (pLAVix)Indications :Atherosclerosis of [place] coronary artery without angina pectoris, unspecified whether [place] or transplanted heart Take 1 Tablet by [...] as of this encounter (statuses as of 01/09/2024) Active Problems Problem Noted Date Diagnosed Date Physician orders for life-talely staining treatment (POLST) form indicates patient wish [...] to vitamin D deficiency 06/14/2022 Atherosclerosis of [place] co ronary artery without angina pectoris 06/14/2022 [...] as of this encounter (statuses as of 01/09/2024) Resolved Problems Problem Noted Date Diagnosed Date [...] as of this encounter (statuses as of 01/09/2024) Immunizations Name Administration Dates Next Due COVID-19 mRNA, LNP-s, No Pre serve, 2-Dose Series ([employer]) 12/23/2020,11/29/2020 Pneumococcal Conjugate Vacc, 13 Valent (Prevnar) [...] Health Maintenance Due Date Last Done Comments Mammogram 1991 Colonoscopy 1996 Fecal Occult Blood Test 1996 Sigmoidoscopy 1996 Zoster Vaccines (1 of 2) 2001 *SPIROMETRY ONCE FOR ASTHMA-ADULT 11/18/2022 DTaP,Tdap,and Td Vaccines (2 - Td or Tdap) 11/20/2022 11/20/2012 COVID-19 Vaccine (3 - 2022- season) 2023 12/23/2020, 11/29/2020 HbA1c 06/27/2023 12/25/2022, 02/0 02/2023, 03/22/2022, Additional history exists TSH 12/26/2023 12/25/2022, 100 11/2021, 03/02/2021, Additional history exists Diabetic Eye Exam 02/14/2024 02/13/2023, , 05/17/2021, Additional history exists Diabetic Foot Exam 03/26/2024 03/26/2023, 1 , 03/16/2021, Additional history exists Influenza Vaccine (FLU shot) (Season Ended) 2024 05/23/2022, 05/20/2021, 07/08/2020, Additional history exists Cologuard 04/26/2024 04/26/2021, 0808/2020, 04/19/2021 Colorectal Cancer Screening 04/26/2024 Pneumococcal Vaccine: 65+ Years Completed 02/25/2019, 05/15/2017, 06/26/2013 Albumin/Creatinine Ratio Discontinued 021, 03/21/2021, 02/12/2013 GARDASIL-HPV IMMUNIZATION SERIES Aged Out No longer eligible based on patient's age to complete this topic Hepatitis B Aged Out No longer eligi ble based on patient's age to complete this topic MENINGOCOCCAL (MENACTRA/MENVEO) Aged Out No longer eligible based on patient's age to complete this topic documented as of this encounter Medical Devices Not on filedocumented as of this encounter Advance Directives Documents on File Type Date Recorded Patient Grey Goods Marker Expl anation Advance Directives and Living Will [...] Agents on File Name Relationship Healthcare Agent [facility] Communication [facility] Child Health Care Agen t (per Health Care Power of Tension Worker document) Care Teams Orchid Transplanter Relationship Specialty Start Date End Date Susan Guidry DO [address] [place] [address] PCP - General Family Medicine 05/01/22 documented as of this encounter
--- OUTSIDE RECORDS SUMMARY | 2024-04-10 05:22 | External Medical Summary | Summary of Care ---
Author Name Unknown Organization [facility] Address [address] [place] [address] Phone [phone] Care Team Providers Care Thermal Technician Name Role Phone Susan Guidry DO Primary Care Provider Reason for Visit * Reason Onset Date Comments [facility]: Screening 01/18/2024 Encounter Details Date Type Department Care Team (Late st Contact Info) Description 01/18/2024 Telephone [facility], [facility] [address] [place] [address] [facility], Nurse [facility] [address] [place] [address] [facility]: Screening Allergies Active Allergy Reactions Criticality Noted Date Comments Demerol Hypotension 06/19/2012 documented as of this encounter (statuses as of 01/18/2024) Medications Medication Sig Dispensed Refills Start Date [...] four times a day as directed. E11.9, [facility] not working 100 Each 11 05/01/2022 Active Aspirin 81 MG Oral Tablet Delayed Release Take by mouth 1 Tablet in the morning. 90 Tablet 1 05/18/2022 Active Ensure High Protein Oral Liquid Take by mouth 2 Bottles daily . 36850 mL 11 05/23/2022 Active amLODIPine Besylate 10 [...] 90 Tablet 3 07/19/2022 Active [place] 3/16" 31G X 5 MM Use as [...] 75 MG Oral Tablet (pLAVix)Indications :Atherosclerosis of [place] coronary artery without angina pectoris, unspecified whether [place] or transplanted heart Take 1 Tablet by [...] as of this encounter (statuses as of 01/18/2024) Active Problems Problem Noted Date Diagnosed Date [...] to vitamin D deficiency 06/14/2022 Atherosclerosis [place] co ronary artery without angina pectoris 06/14/2022 [...] as of this encounter (statuses as of 01/18/2024) Resolved Problems Problem Noted Date Diagnosed Date [...] as of this encounter (statuses as of 01/18/2024) Immunizations Name Administration Dates Next Due COVID-19 mRNA, LNP-s, No Pre serve, 2-Dose Series (Dynamics Direct) 12/23/2020,11/29/2020 Pneumococcal Conjugate Vacc, 13 Valent (Prevnar) [...] encounter Miscellaneous Notes * Telephone Encounter - Karie Covarrubias LPN - 01/18/2024 12:24 PM EDT Mai Mathias was referred as a potential candidate for enrollment for [facility]. A review of this chart was completed and: Mai does not meet criteria for enrollment into [facility]. Referral Source: Monthly Proactive Eligibility List Criteria for Ineligibility: [facility] Care Referring care team was notified via : [employer] communication documented in this encounter Plan of Treatment [...] 12/25/2022, 1011/2021, 03/02/2021, Additional history exists Diabetic Eye Exam 02/14/2024 02/13/2023, , 05/17/2021, Additional history exists Diabetic Foot Exam 03/26/2024 03/26/2023, 1 , 03/16/2021, Additional history exists Influenza Vaccine (FLU shot) (Season Ended) 2024 05/23/2022, 05/20/2021, 07/08/2020, Additional history exists Cologuard 04/26/2024 04/26/2021, 03/22, 04/19/2021 Colorectal Cancer Screening 04/26/2024 Pneumococcal Vaccine: [...] Documents on File Type Date Recorded Patient Screen Handler Expl anation Advance Directives and Living Will [...] Agents on File Name Relationship Healthcare Agent [facility] Care [facility] t (per Health Care Power of Turner In document) Care Teams Thermal Technician Relationship Specialty Start Date End Date Susan Guidry DO [address] [place] [address] PCP - General Family Medicine 05/01/22 documented as of this encounter
[2024-04-10 05:54] LABS: Basophils % (auto) 1.1 %; Eosinophils # (auto) 0.21 K/uL (0.00-0.50); Eosinophils % (auto) 2.2 %; Hematocrit (blood only) 33.9 % (37.0-47.0); Immature Granulocytes # (auto) 0.04 K/uL (0.01-0.20); Immature Granulocytes % (auto) 0.4 %; Lymphocytes # (auto) 1.73 K/uL (1.20-3.40); Lymphocytes % (auto) 18.2 %; Mean Corpuscular Hemoglobin 31.3 pg (25.0-34.0); Mean Corpuscular Hgb Conc 32.4 g/dL (32.0-36.0); Mean Corpuscular Volume 96.3 fL (80.0-100.0); Mean Platelet Volume 10.5 fL (9.4-12.4); Monocytes # (auto) 0.68 K/uL (0.11-0.59); Monocytes % (auto) 7.2 %; Neutrophils # (auto) 6.74 K/uL (1.40-6.50); Neutrophils % (auto) 70.9 %; Platelet Count 275 K/uL (130-400); RDW Coefficient of Variation 13.8 % (11.5-14.5); RDW Standard Deviation 48.1 fL (36.4-46.3); Red Blood Count 3.52 M/uL (4.20-5.40)
[2024-04-10 06:17] LABS: Albumin Globulin Ratio 1.1 (0.9-2); Albumin Level 3.9 gm/dl (3.4-5.0); BUN Creatinine Ratio 8.5 (10-20); Bilirubin,Total 0.3 mg/dl (0.2-1.0); Calcium 9.6 mg/dl (8.6-10.3); Creatinine Clr Calc Pharmacy 7.8 ml/min; Est GFR (African American) 6.5 ml/min; Est GFR (Non-African American) 5.6 ml/min; Globulin 3.7 gm/dl (2.5-4.0); Magnesium 2.1 mg/dl (1.7-2.4); Phosphorus 3.5 mg/dl (2.5-4.9); Potassium 6.1 mmol/L (3.5-5.1); Total Protein 7.6 gm/dl (6.0-8.3)
[2024-04-10] MEDS: DEXTROSE 50% 50 ML SYRINGE IV STA (06:36)
[2024-04-10] MEDS: CALCIUM GLUCONATE 1,000 MG/60 ML BAG IV STA (06:45)
[2024-04-10] MEDS: LEVOTHYROXINE SODIUM 50 MCG TABLET PO SCH (06:49)
[2024-04-10] MEDS: INSULIN HUMAN REGULAR PER UNIT 10 UNITS in SYRINGE 9.9 ML IV ONE (06:50)
[2024-04-10] MEDS: ALBUTEROL 0.5% NEB SOLN 2.5 MG/0.5 ML VIAL NEB STA (07:39)
--- NOTE | 2024-04-10 08:01 | Electrocardiogram Report ---
Test Reason : Blood Pressure : */* mmHG Vent. Rate : 83 BPM Atrial Rate : 83 BPM P-R Int : 176 ms QRS Dur : 84 ms QT Int : 392 ms P-R-T Axes : 76 -3 98 degrees QTcB Int : 460 ms Normal sinus rhythm T-wave inversion in Lateral leads Abnormal ECG When compared with ECG of 29-May-2023 11:44, No significant change was found Confirmed by Juan Palma ([id number]) on 04/10/2024 8:01:42 AM Referred By: Kalia Frost Confirmed By: Juan Palma
[2024-04-10 08:15] LABS: Estimated Average Glucose 143 mg/dl; Hemoglobin A1C 6.6 % (4.5-5.6)
[2024-04-10] MEDS: CALCIUM ACETATE 667 MG CAP/TAB PO SCH (08:32)
[2024-04-10] MEDS: POLYETHYLENE (MIRALAX) 17 GM PACK PO SCH (08:32)
[2024-04-10] MEDS ORDERED: SODIUM CHLORIDE 0.9% 1,000 ML IV PRN (09:34)
--- OUTSIDE RECORDS SUMMARY | 2024-04-10 09:48 | External Medical Summary | Summary of Care ---
Author Name Unknown Organization [facility] Address [address] [place] [address] Phone [phone] Care Team Providers Care [employer] Name Role Phone Susan Guidry Primary Care Provider Encounter Details Date Type Department Care Team (Late st Contact Info) Description 04/03/2024 Medication Management Saida Villalba [facility] [address] [place] [address] Pharmacist, Saida Villalba [facility] [address] [place] [address] Referred for management of medication therapy* Allergies Active Allergy Reactions Criticality Noted Date Comments Meperidine Hypotension High 10/29/2023 Other Reaction(s): unk documented as of this encounter (statuses as of 04/09/2024) Medications Medication Sig Dispensed Refills Start Date End Date Status OneTouch Verio In Vitro Strip (Glucose Blood) Use up to 4 times a day E11.9 CBGM not working 100 Strip 11 2 Active OneTouch UltraSoft Lancets Use as directed 4 times a day . Use up to four times a day as directed. E11.9, CBGM not working 100 Each 11 2 Active Aspirin 81 MG Oral Tablet Delayed Release Take by mouth 1 Tablet in the morning. 90 Tablet 1 2 Active Ensure High Protein Oral Liquid Take by mouth 2 Bottles daily . 14062 mL 11 2 Active Additional Information Patient not taking.Reported on 04/04/2024 amLODIPine Besylate 10 MG Oral Tablet (Norvasc)Indication s:Hypertension goal BP (blood pressure) < 140/80 Take 1 Tablet (10 mg) by mouth in the morning. 90 Tablet 3 2 Active Additional Information Patient not taking.Reported on 04/04/2024 Metoprolol Succinate ER 50 MG Oral Tablet Extended Release 24 Hour (toPROL XL)Indications:Hype rtension goal BP (blood pressure) < 140/80 Take 1 Tablet (50 mg) by mouth in the morning. 90 Tablet 3 2 Active Additional Information Patient not taking.Reported on 04/04/2024 Levothyroxine Sodium 50 MCG Oral Tablet (Levoxyl)Indication s:Hypothyroidism Take 1 Tablet (50 mcg) by mouth in the morning. (at least 30 min prior to breakfast or other meds). 90 Tablet 3 2 Active Pen [place] 11/02" 31G X 5 MM Use as directed with insulin twice daily 200 Each 1 3 Active Bumetanide 2 MG Oral TabletIndications:P eritoneal dialysis catheter in place (HCC) Take 2 Tablets by mouth in the morning and 2 Tablets before bedtime. 360 Tablet 3 3 Active Pantoprazole Sodium 40 MG Oral Tablet Delayed Release (Protonix)Indicatio ns:Gastroesophageal reflux disease without esophagitis Take 1 Tablet by mouth in the morning. 90 Tablet 3 3 Active Additional Information Patient not taking.Reported on 04/04/2024 Clopidogrel Bisulfate 75 MG Oral Tablet (pLAVix)Indications :Atherosclerosis of grayling coronary artery without angina pectoris, unspecified whether grayling or transplanted heart Take 1 Tablet by mouth in the morning. 90 Tablet 3 3 Active Additional Information Patient not taking.Reported on 04/04/2024 Meclizine HCl 12.5 MG Oral Tablet (Antivert) Take 1 Tablet by mouth 3 times a day as needed for Dizziness. 30 Tablet 1 3 Active Additional Information Patient not taking.Reported on 04/03/2024 Cholecalciferol 125 MCG (5000 UT) Oral Tablet Take 50,000 Units by mouth every evening. Active Oxybutynin Chloride 5 MG Oral Tablet (Ditropan)Indicatio ns:OAB (overactive bladder) Take 0.5 Tablets by mouth in the morning. 30 Tablet 11 3 Active Additional Information Patient not taking.Reported on 04/04/2024 Acetaminophen 325 MG Oral Tablet (Tylenol) Take 2 Tablets by mouth every 6 hours as needed for Fever (Temp Greater than ). Active DULoxetine HCl 20 MG Oral Capsule Delayed Release Particles (Cymbalta) Take 1 Capsule by mouth in the morning. Do not cut, crush or chew. 30 Capsule 5 3 Active Additional Information Patient not taking.Reported on 04/04/2024 NovoLOG Mix 70/30 FlexPen (70-30) 100 UNIT/ML Subcutaneous Suspension Pen-injector (NovoLOG MIX 70/30)Indications:T ype 2 diabetes mellitus with hemoglobin A1c goal of less than 7.0% (HCC) Use 62 units in the morning, and 50 units in the evening. Dose changed on 03/12/2023 90 mL 11 3 Active Additional Information Patient not taking.Reported on 04/04/2024 FreeStyle Marlene 2 SensorIndications:T ype 2 diabetes mellitus with hemoglobin A1c goal of less than 7.0% (HCC) Use as directed. Every 14 days 2 Each 1 3 Active Gabapentin 600 MG Oral Tablet (Neurontin)Indicati ons:Ambulatory dysfunction Take 1 Tablet by mouth every evening. 90 Capsule 3 Active rOPINIRole HCl 0.25 MG Oral Tablet (Requip)Indications :RLS (restless legs syndrome) Take 1 Tablet by mouth at bedtime. 90 Tablet 1 3 Active Atorvastatin Calcium 40 MG Oral Tablet (Lipitor) Take 1 Tablet by mouth at bedtime. Active Auryxia 1 GM 210 MG(Fe) Oral Tablet (Ferric Citrate) Take 1 Tablet by mouth daily. With meals Active Isosorbide Mononitrate ER 30 MG Oral Tablet Extended Release 24 Hour (Imdur) Take 1 Tablet by mouth every evening. 4 Active Glucagon Emergency 1 MG Injection Kit Inject 1 mg into a large muscle as needed for Hyperglycemia (high sugar). 3 Active Gabapentin 100 MG Oral Capsule (Neurontin) Take 1 Capsule by mouth once a day on Sunday, Sunday, and Sunday only. Afternoon 4 Active Melatonin 5 MG Oral Tablet Take 2 Tablets by mouth at bedtime. 3 Active NovoLOG 100 UNIT/ML Injection Solution Take up to 20 units under the skin as needed according to sliding scale 4 Active Ondansetron 4 MG Oral Tablet Disintegrating (Zofran) Take 1 tablet by mouth every 6 hours as needed for nausea and vomiting 4 Active traMADol HCl 50 MG Oral Tablet (Ultram) Take 1 tablet by mouth every 4 hours as needed for pain 5-10 4 Active Calcium Acetate (Phos Binder) 667 MG Oral Capsule (Phoslo) Take 2 tablets by mouth every day with meals Active amLODIPine Besylate 5 MG Oral Tablet (Norvasc) Take 2 tablets by mouth in the evening Active Clopidogrel Bisulfate 75 MG Oral Tablet (pLAVix) Take 1 tablet by mouth in the evening Active DULoxetine HCl 20 MG Oral Capsule Delayed Release Particles (duloxetine) Take 1 capsule by mouth in the evening Active Metoprolol Succinate ER 50 MG Oral Tablet Extended Release 24 Hour (Toprol XL) Take 1 tablet by mouth in the evening Active NovoLOG Mix 70/30 FlexPen (70-30) 100 UNIT/ML Suspension Pen-injector (Insulin Aspart Prot & Aspart) Inject 80 units subcutaneously daily Active oxyBUTYnin Chloride 2.5 MG Oral Tablet Take 1 tablet by mouth once daily Active Pantoprazole Sodium 40 MG Oral Tablet Delayed Release (Protonix) Take 1 tablet by mouth at bedtime Active Mirtazapine 7.5 MG Oral Tablet (Remeron) Take 1 Tablet by mouth at bedtime. Active Polyethylene Glycol 3350 17 GM/SCOOP Oral Powder Take 17 g by mouth in the morning and 17 g before bedtime. As needed. 507 g 1 2 04/04/20 24 Discontinu ed(Medicat ion List Clean Up) Docusate Sodium 100 MG Oral Tablet Take 1 Tablet by mouth in the morning and 1 Tablet before bedtime. 04/04/20 24 Discontinu ed(Medicat ion List Clean Up) Ventolin HFA 108 (90 Base) MCG/ACT Inhalation Aerosol SolutionIndications :Uncomplicated asthma, unspecified asthma severity, unspecified whether persistent Inhale 2 Puffs by mouth every 4 hours as needed for Wheezing. 18 g 3 3 04/04/20 Discontinu ed(Medicat ion List Clean Up) Sevelamer Carbonate 0.8 GM Oral Packet Take by mouth three times a day with meals. 04/04/20 Discontinu ed(Medicat ion List Clean Up) FiberCon 625 MG Oral Tablet (Calcium Polycarbophil) Take 1 Tablet by mouth in the morning. 04/04/20 Discontinu ed(Medicat ion List Clean Up) Bisacodyl 10 MG Rectal Suppository (Dulcolax) Insert 1 unit rectally as needed for constipation 04/04/20 Discontinu ed(Medicat ion List Clean Up) Fleet Enema Rectal Enema Administer into the rectum. Insert 1 unite rectally as needed for constipation if no bowel movement after dulcolax 04/04/20 Discontinu ed(Medicat ion List Clean Up) Sennosides-Docusate Sodium 8.6-50 MG Oral Tablet (Senokot S) Take 1 Tablet by mouth in the morning and 1 Tablet before bedtime. 04/04/20 Discontinu ed(Medicat ion List Clean Up) Aspirin 81 MG Oral Tablet Delayed Release (Aspirin 81) Take 1 tablet by mouth at bedtime 04/04/20 Discontinu ed(Medicat ion List Clean Up) documented as of this encounter (statuses as of 04/09/2024) Active Problems Problem Noted Date Diagnosed Date [...] to vitamin D deficiency 06/14/2022 Atherosclerosis of grayling co ronary artery without angina pectoris 06/14/2022 [...] as of this encounter (statuses as of 04/09/2024) Resolved Problems Problem Noted Date Diagnosed Date [...] as of this encounter (statuses as of 04/09/2024) Immunizations Name Administration Dates Next Due COVID-19 mRNA, LNP-s, No Pre serve, 2-Dose Series (CytoVale) 12/23/2020,11/29/2020 Pneumococcal Conjugate Vacc, 13 Valent (Prevnar) [...] 03/16/2023 Does the household have a re lar source of income? (Household - for ages [...] as of this encounter Progress Notes * Pily El, [facility] - 04/04/2024 7:59 AM EDT Mai Mathias is a 73 year old female. Objective: Review of patient's allergies indicates: Allergen Reactions Meperidine Hypotension Other Reaction(s): unk Current Outpatient Medications - WARNING: List may be incomplete due to filtering Medication Sig Dispense Refill amLODIPine Besylate 5 MG Oral Tablet (Norvasc) Take 2 tablets by mouth in the evening Clopidogrel Bisulfate 75 MG Oral Tablet (pLAVix) Take 1 tablet by mouth in the evening DULoxetine HCl 20 MG Oral Capsule Delayed Release Particles (duloxetine) Take 1 capsule by mouth inthe evening Metoprolol Succinate ER 50 MG Oral Tablet Extended Release 24 Hour (Toprol XL) Take 1 tablet by mouth in the evening NovoLOG Mix 70/30 FlexPen (70-30) 100 UNIT/ML Suspension Pen-injector (Insulin Aspart Prot & Aspart) Inject 80 units subcutaneously daily oxyBUTYnin Chloride 2.5 MG Oral Tablet Take 1 tablet by mouth once daily Pantoprazole Sodium 40 MG Oral Tablet Delayed Release (Protonix) Take 1 tablet by mouth at bedtime Atorvastatin Calcium 40 MG Oral Tablet (Lipitor) Take 1 Tablet by mouth at bedtime. Auryxia 1 GM 210 MG(Fe) Oral Tablet (Ferric Citrate) Take 1 Tablet by mouth daily. With meals Calcium Acetate (Phos Binder) 667 MG Oral Capsule (Phoslo) Take 2 tablets by mouth every day with meals Gabapentin 100 MG Oral Capsule (Neurontin) Take 1 Capsule by mouth once a day on Sunday, Sunday,and Sunday only. Afternoon Glucagon Emergency 1 MG Injection Kit Inject 1 mg into a large muscle as needed for Hyperglycemia (high sugar). Isosorbide Mononitrate ER 30 MG Oral Tablet Extended Release 24 Hour (Imdur) Take 1 Tablet by mouthevery evening. Melatonin 5 MG Oral Tablet Take 2 Tablets by mouth at bedtime. NovoLOG 100 UNIT/ML Injection Solution Take up to 20 units under the skin as needed according to sliding scale Ondansetron 4 MG Oral Tablet Disintegrating (Zofran) Take 1 tablet by mouth every 6 hours as neededfor nausea and vomiting traMADol HCl 50 MG Oral Tablet (Ultram) Take 1 tablet by mouth every 4 hours as needed for pain 5-10 Gabapentin 600 MG Oral Tablet (Neurontin) Take 1 Tablet by mouth every evening. 90 Capsule 0 rOPINIRole HCl 0.25 MG Oral Tablet (Requip) Take 1 Tablet by mouth at bedtime. 90 Tablet 1 Acetaminophen 325 MG Oral Tablet (Tylenol) Take 2 Tablets by mouth every 6 hours as needed for Fever (Temp Greater than ). Cholecalciferol 125 MCG (5000 UT) Oral Tablet Take 50,000 Units by mouth every evening. Bumetanide 2 MG Oral Tablet Take 2 Tablets by mouth in the morning and 2 Tablets before bedtime. 360 Tablet 3 Levothyroxine Sodium 50 MCG Oral Tablet (Levoxyl) Take 1 Tablet (50 mcg) by mouth in the morning. (at least 30 min prior to breakfast or other meds). 90 Tablet 3 Aspirin 81 MG Oral Tablet Delayed Release Take by mouth 1 Tablet in the morning. 90 Tablet 1 FreeStyle Marlene 2 Sensor Use as directed. Every 14 days 2 Each 1 NovoLOG Mix 70/30 FlexPen (70-30) 100 UNIT/ML Subcutaneous Suspension Pen- injector (NovoLOG MIX 70/30) Use 62 units in the morning, and 50 units in the evening. Dose changed on 03/12/2023 (Patient not taking: Reported on 04/04/2024) 90 mL 11 DULoxetine HCl 20 MG Oral Capsule Delayed Release Particles (Cymbalta) Take 1 Capsule by mouth in the morning. Do not cut, crush or chew. (Patient not taking: Reported on 04/04/2024) 30 Capsule 5 Oxybutynin Chloride 5 MG Oral Tablet (Ditropan) Take 0.5 Tablets by mouth in the morning. (Patient not taking: Reported on 04/04/2024) 30 Tablet 11 Meclizine HCl 12.5 MG Oral Tablet (Antivert) Take 1 Tablet by mouth 3 times a day as needed for Dizziness. (Patient not taking: Reported on 04/03/2024) 30 Tablet 1 Clopidogrel Bisulfate 75 MG Oral Tablet (pLAVix) Take 1 Tablet by mouth in the morning. (Patient not taking: Reported on 04/04/2024) 90 Tablet 3 Pantoprazole Sodium 40 MG Oral Tablet Delayed Release (Protonix) Take 1 Tablet by mouth in the morning. (Patient not taking: Reported on 04/04/2024) 90 Tablet 3 Pen [place] 11/02" 31G X 5 MM Use as directed with insulin twice daily 200 Each 1 amLODIPine Besylate 10 MG Oral Tablet (Norvasc) Take 1 Tablet (10 mg) by mouth in the morning. (Patient not taking: Reported on 04/04/2024) 90 Tablet 3 Metoprolol Succinate ER 50 MG Oral Tablet Extended Release 24 Hour (toPROL XL) Take 1 Tablet (50 mg) by mouth in the morning. (Patient not taking: Reported on 04/04/2024) 90 Tablet 3 Ensure High Protein Oral Liquid Take by mouth 2 Bottles daily . (Patient not taking: Reported on 04/04/2024) 48567 mL 11 MunaxTouch UltraSoft Lancets Use as directed 4 times a day . Use up to four times a day as directed. E11.9, CBGM not working 100 Each 11 OneTouch Verio In Vitro Strip (Glucose Blood) Use up to 4 times a day E11.9 CBGM not working 100 Strip 11 Immunization History Administered Date(s) Administered COVID-19 mRNA, LNP-s, No Preserve, 2-Dose Series (CytoVale) 11/29/2020, 12/23/2020 Pneumococcal Conjugate Vacc, 13 Valent (Prevnar) 05/15/2017 Pneumococcal Polysaccharide PPV23 (Pneumovax) 06/26/2013, 02/25/2019 Seasonal Influenza, PF, 6 M & above, IM , (FluLaval or Fluzone) 07/08/2020, 05/20/2021 Seasonal Influenza, Quadrivalent Hd (Fluzone Hd) 05/23/2022 Seasonal Influenza, Split, IIV3, With Preserve, Inj 06/26/2013 TDAP (age 10 and older)(Boostrix) 11/20/2012 TMR Interventions Incomplete Encounter MTPs No medication therapy recommendations to display Complete Encounter MTPs No medication therapy recommendations to display Assessment & Plan Indication, effectiveness, safety and convenience of her medications were reviewed today. The patient's medical conditions were assessed, evaluated, and deemed meeting goals of drug therapy, with thefollowing exceptions. Additional Notes: Patient is currently a resident at [facility]. CMR completed with [facility]. Facility confirms no recent changes to patient's health or medications. Summary Time Spent: No Previous Data Supervising pharmacist who provided the service: No Previous Data Takeaway Information Who was the recipient of the CMR service: caregiver Language Template for the Patient Takeaway: Eritrean I attest that I have reviewed and updated the patient's conditions, allergies, and medications to the best of my ability. Patient provided medication list gathered by: Isaac Xie, director pharmacy services Pily El [facility] 04/04/2024, 7:59 AM documented in this encounter Miscellaneous Notes * [facility] Personal Medication List - Maria Lugo [facility] - 04/09/2024 12:02 PM EDT Medication How I take it Why I use it Prescriber Acetaminophen 325 MG Oral Tablet (Tylenol) Take 2 Tablets by mouth every 6 hours as needed pain Kalia Frost III, MD amLODIPine Besylate 5 MG Oral Tablet (Norvasc) Take 2 tablets by mouth in the evening Blood pressure Kalia Frost III, MD Aspirin 81 MG Oral Tablet Delayed Release Take by mouth 1 Tablet in the morning. heart Davis Iwona Guidry, Atorvastatin Calcium 40 MG Oral Tablet (Lipitor) Take 1 Tablet by mouth at bedtime. cholesterol Kalia Frost III, MD Auryxia 1 GM 210 MG(Fe) Oral Tablet (Ferric Citrate) Take 1 Tablet by mouth daily. With meals Low iron Kalia Frost III, MD Bumetanide 2 MG Oral Tablet Take 2 Tablets by mouth in the morning and 2 Tablets before bedtime. Fluid retention Susan Guidry DO Calcium Acetate (Phos Binder) 667 MG Oral Capsule (Phoslo) Take 2 tablets by mouth every day with meals and snacks kidneys Kalia Frost III, MD Cholecalciferol 125 MCG (5000 UT) Oral Tablet Take 50,000 Units by mouth every evening. Low vitaminD Kalia Frost III, MD Clopidogrel Bisulfate 75 MG Oral Tablet (pLAVix) Take 1 tablet by mouth in the evening Blood thinner Kalia Frost III, MD DULoxetine HCl 20 MG Oral Capsule Delayed Release Particles (duloxetine) Take 1 capsule by mouth inthe evening mood Kalia Frost III, MD Gabapentin 100 MG Oral Capsule (Neurontin) Take 1 Capsule by mouth once a day on Sunday, Sunday,and Sunday only. Afternoon Nerve pain Kalia Frost III, MD Gabapentin 600 MG Oral Tablet (Neurontin) Take 1 Tablet by mouth every evening. Nerve pain CESAR Zimmerman Isosorbide Mononitrate ER 30 MG Oral Tablet Extended Release 24 Hour (Imdur) Take 1 Tablet by mouthevery evening. heart Kalia Frost III, MD Levothyroxine Sodium 50 MCG Oral Tablet (Levoxyl) Take 1 Tablet (50 mcg) by mouth in the morning. (at least 30 min prior to breakfast or other meds). thyroid Susan Guidry DO Melatonin 5 MG Oral Tablet Take 2 Tablets by mouth at bedtime. sleep Kalia Frost III, MD Metoprolol Succinate ER 50 MG Oral Tablet Extended Release 24 Hour (Toprol XL) Take 1 tablet by mouth in the evening heart Kalia Frost III, MD Mirtazapine 7.5 MG Oral Tablet (Remeron) Take 1 Tablet by mouth at bedtime. mood Kalia Frost III, MD NovoLOG 100 UNIT/ML Injection Solution Take up to 20 units under the skin as needed according to sliding scale diabetes Kalia Frost III, MD NovoLOG Mix 70/30 FlexPen (70-30) 100 UNIT/ML Suspension Pen-injector (Insulin Aspart Prot & Aspart) Inject 40 units under the skin twice daily diabetes Kalia Frost III, MD Ondansetron 4 MG Oral Tablet Disintegrating (Zofran) Take 1 tablet by mouth every 6 hours as neededfor nausea and vomiting nausea Kalia Frost III, MD oxyBUTYnin Chloride 2.5 MG Oral Tablet Take 1 tablet by mouth once daily bladder Kalia Frost III, MD Pantoprazole Sodium 40 MG Oral Tablet Delayed Release (Protonix) Take 1 tablet by mouth at bedtime heartburn Kalia Frost III, MD rOPINIRole HCl 0.25 MG Oral Tablet (Requip) Take 1 Tablet by mouth at bedtime. Restless leg CESAR Zimmerman traMADol HCl 50 MG Oral Tablet (Ultram) Take 1 tablet by mouth every 4 hours as needed for pain 5-10 pain Kalia Frost III, MD * [facility] To-Do-List - Maria Lugo RPh - 04/09/2024 11:49 AM EDT Images from the original note were not included. What we talked about: What I should do: The importance of taking your medication as prescribed Your medicine works best when taken as prescribed. It can be hard to remember to take daily medications. Consider making it a part of your daily routine. Pair taking your medication with something you do every day, like brushing your teeth or eating a meal. Consider setting daily alarms to help remind yourself when it is time to take your medicine. Using a pill box can also help you organize your medicines. Pill boxes allow you to fill each day slot with your daily medicine and help you track when your next dose is due. What we talked about: What I should do: Preventing falls Falls can be a serious concern for older adults, but with the right knowledge and precautions, they can be prevented. By following these recommendations, you can maintain your independence and enjoy a higher quality of life. Keep your living space clutter-free by tidying up any loose items, electrical cords, or rugs that could cause you to trip and fall Ensure all areas of your home are well-lit, especially hallways, staircases, and entrances. Use nightlights to help navigate during nighttime. Use non-slip mats or double-sided tape to prevent rugs and carpets from sliding or bunching up, which can lead to slips and falls. Place handrails on both sides of staircases and grab bars in bathrooms near toilets, showers, and bathtubs for added stability and support. Engage in exercises that focus on strength, balance, and flexibility. Simple activities like walking, jovanna chi, or chair exercises can help improve your overall stability. Before starting any exercise program, consult your healthcare provider to ensure it is suitable foryour current health condition. If needed, use walking aids like canes or walkers to provide additional support and stability whilemoving Wear well-fitting shoes with good arch support and a non-slip sole. Avoid high heels, flip-flops, and shoes with worn-out soles Slow down and be mindful of your movements. 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
[2024-04-10 10:08] LABS: Appearance Urine Turbid (Clear); Bacteria Urine Automated 2+ (None Seen); Bilirubin Urine Negative (Negative); Blood Urine 2+ (Negative); Color Urine Yellow; Glucose Urine UA Negative (Negative); Ketones Urine Trace (Negative); Leukocyte Esterase Urine 3+ (Negative); Nitrite Urine Negative (Negative); Protein Urine 3+ (Negative); Specific Gravity Urine 1.016 (1.000-1.030); Urobilinogen Urine Negative (Negative); WBC Urine Automated >50 /hpf (0-5)
[2024-04-10 10:09] LABS: Cast Urine Automated 0-2 /lpf (0-2)
[2024-04-10] MEDS: ONDANSETRON 4 MG OD TAB PO PRN (10:22)
--- NOTE | 2024-04-10 11:24 | Nephrology Consultation ---
Date of Consultation April 10, 2024 Assessment & Plan (1) Hemodialysis catheter malfunction: OP dialysis catheter runs only at Qb 250 and some small air bubbles noted in line > not enough to trip alarms but concern for crack/potential bleed or infection if worsens or/and catheter unchanged. she is on plavix, last dose 10/10. appreciate gen surgery evaluation >> per them she can't have exchange before early next week, likely Sunday. >reaching out to OP providers to see if we can temporize her medically and with poor but still functional catheter >>>will have dialysis nurses reevaluate catheter lines for cracks/wear >> if present will need immediate transfer to another center for exchange; if no line defects found, will plan tentatively to temporize her for OP TDC exchange next week if we can arrange it >HD today and for tx again tomorrow Care coordinated extensively and repeatedly w/ Preet Torres, Margot (her facility physician), [facility] interventional radiology team. (2) Hyperkalemia: managed medically and w/ HD today >> likely multifactorial > combo of poor catheter function +/- ? complication heparin -have a call out to her facility providers to find out about OP access to K binders like lokelma or veltassa >> not a given; concern she may not tolerate/accept kayexalate daily dosed for 5 days -daily bmp while in house (3) End stage renal disease: ESRD on HD; had 2 treatments this week both limited by catheter poor performance -1.5L FR ordered -agree w/ continuing OP phosLo 2AC/1 snack -for HD today, tomorrow, 04/14 for sure provided catheter continues at least some function History of Present Illness Reason for Consultation: malfunctioning dialysis catheter Requesting Physician: Dr Anthony Attending Physician: Efrain Loaiza MD History of Present Illness 73-year-old female who I am asked to evaluate for hemodialysis catheter malfunction was admitted last evening after being sent to the hospital for the same issue. Past medical history includes ESRD on in center hemodialysis onsite at her facility, HTN, DM, lumbar radiculopathy/RLE weakness, hypothyroid, class 2 obesity, HL, at least mild cognitive impairment/memory challenges, chronic ambulatory dysfunction d/t back pain and leg weakness, h/o major depression. She had a tunneled dialysis catheter exchange in January to manage a dialysis catheter tunnel infection likely from picking at her exit site. Also had an exchange in October of this year for dialysis catheter malfunction. She has consistently refused AV fistula creation. Admitted here for TIA in July 2022; admitted here for cx negative PD peritonitis 09/2022 (no longer on peritoneal dialysis). 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 Has had C diff in the past. also had one other episode of peritonitis spring 2021 shortly after starting PD. She dialyzes under my care at [facility] dialysis at [facility]. I evaluated her at dialysis yesterday. The outpatient dialysis team reported significant challenges with catheter function worsening April 07. At yesterday's treatment, she completed a full treatment but was only able to run at a blood flow of 250 mL per minute due to catheter issues (normally 350-400). No clots but resistance reported with aspiration and flush. Also air bubbles were noted in the tubing, although the air alarm did not trip. She voids most days but less than 500 mL. no redness or pain over catheter; no discharge or exit site/tunnel concerns, though does still have pruritis from dressing over weekend. No v/abd pain/diarrhea, no palpitations, no edema.no decreased po intake. no f/c; no change in chronic voiding habits or new/worrisome voiding concerns. no dyspnea, no edema. some mild chronic hip pain else no pain concerns. Her potassium this am despite HD yesterday (which was clearly inadequate) is 6.1 ; was 5.2 yesterday on presentation at 1800. she had 2 doses of Bumex 4 mg po; has also had 2 rounds of IV insulin and albuterol. Potassium binders were entertained but were not given because of her n.p.o. status. Allergies Allergy/AdvReac Type Severity Reaction Status Date / Time meperidine Allergy Intermediate hypotension-passed Verified 04/09/24 20:06 out Home Medications Medication Instructions Recorded Confirmed Type bumetanide 2 mg tablet 4 mg PO BID 04/20/22 04/09/24 History cholecalciferol (vitamin D3) 125 125 mcg PO QPM 04/20/22 04/09/24 History mcg (5,000 unit) tablet (Vitamin D3) atorvastatin 40 mg tablet 40 mg PO HS 07/23/22 04/09/24 History docusate sodium 100 mg capsule 100 mg PO BID 07/23/22 04/09/24 History insulin aspar prot-insulin aspart 40 unit subcut QPM 07/23/22 04/09/24 History 100 unit/mL (70-30) subcutaneous pen (Novolog Mix 70-30FlexPen U-100) insulin aspar prot-insulin aspart 40 unit subcut UD 07/23/22 04/09/24 History 100 unit/mL (70-30) subcutaneous pen (Novolog Mix 70-30FlexPen U-100) isosorbide mononitrate 30 mg 30 mg PO QPM 07/23/22 04/09/24 History tablet,extended release 24 hr levothyroxine 50 mcg tablet 50 mcg PO DAILY 07/23/22 04/09/24 History melatonin 10 mg tablet 10 mg PO HS Sleep 07/23/22 04/09/24 History metoprolol succinate 50 mg 50 mg PO QPM 07/23/22 04/09/24 History tablet,extended release 24 hr tramadol 50 mg tablet 50 mg PO Q4 PRN Pain 5-10 07/23/22 04/09/24 History aspirin 81 mg tablet,delayed 81 mg PO HS 05/18/23 04/09/24 History release duloxetine 20 mg capsule,delayed 20 mg PO QPM 05/18/23 04/09/24 History release oxybutynin chloride 5 mg tablet 2.5 mg PO QPM 05/18/23 04/09/24 History ropinirole 0.25 mg tablet 0.25 mg PO HS 05/18/23 04/09/24 History acetaminophen 325 mg tablet 650 mg PO Q6 PRN TEMP > 100 04/09/24 04/09/24 History acetaminophen 325 mg tablet 650 mg PO Q6 PRN Pain (Scale Score 04/09/24 04/09/24 History (Tylenol) 1-4) amlodipine 5 mg tablet 10 mg PO QPM 04/09/24 04/09/24 History calcium acetate 667 mg tablet 1,334 mg PO WM 04/09/24 04/09/24 History calcium acetate 667 mg tablet 667 mg PO . NEEDED PRN WITH 04/09/24 04/09/24 History SNACKS clopidogrel 75 mg tablet 75 mg PO QPM 04/09/24 04/09/24 History ferric citrate 210 mg iron tablet 210 mg PO WM 04/09/24 04/09/24 History (Auryxia) gabapentin 100 mg capsule 100 mg PO 3XWK 04/09/24 04/09/24 History gabapentin 600 mg tablet 600 mg PO QPM 04/09/24 04/09/24 History mirtazapine 7.5 mg tablet 7.5 mg PO HS 04/09/24 04/09/24 History ondansetron 4 mg disintegrating 4 mg PO Q6H PRN Nausea And Vomiting 04/09/24 04/09/24 History tablet pantoprazole 40 mg tablet,delayed 40 mg PO HS 04/09/24 04/09/24 History release polyethylene glycol 3350 17 17 g PO UD 04/09/24 04/09/24 History gram/dose oral powder (Miralax) polyethylene glycol 3350 17 17 g PO UD 04/09/24 04/09/24 History gram/dose oral powder (Miralax) sennosides 8.6 mg-docusate sodium 1 tab-cap PO UD 04/09/24 04/09/24 History 50 mg tablet (Senokot-S) sennosides 8.6 mg-docusate sodium 1 tab-cap PO UD 04/09/24 04/09/24 History 50 mg tablet (Senokot-S) Patient History Medical History (Updated 04/10/24 @ 13:12 by Bozena Farias MD, PhD) ESRD (end stage renal disease) on dialysis hemodialysis done on site at [facility] w/ [facility] Ambulatory dysfunction Dyspnea on exertion Exertional chest pain Surgical History 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 Family History Other Cancer Social History Smoking Status: Never smoker Hx Alcohol Use: No Hx Substance Use: No Preferred Language: [place] Communication Ability: Effective Tailing Hand Required: No Beliefs That Will Affect Care: None marital status: / Current Living Situation: Senior Living Current Living Situation Comment: lives at shelter care facility Other Information That Helps Us Care for You: No Feels Safe at Home: Yes Safety Concerns: Feels Safe At This Time Assistive Devices: Wheelchair Review of Systems 2 Review of Systems: All systems reviewed & are unremarkable except as noted in HPI & below Physical Exam 2 Constitutional: well developed, well nourished and + acute distress (tearful, mildly distressed d/t anxiety about losing C Care bed) Eyes: EOM intact bilaterally ENMT: Ears: no external ear abnormality Nose: no external nose abnormality Mouth: + dry oral mucous membranes Neck: no nuchal rigidity Respiratory: normal respiratory effort Auscultation: + diminished lung sounds Cardiovascular: RRR, no murmur, no edema Gastrointestinal (Abdomen): Inspection/Auscultation: normal bowel sounds P ercussion/Palpation: abdomen soft; abdomen nontender Musculoskeletal: Extremities: strength 5/5 throughout needs at least 1 person assist to sit forward in bed Skin: no rashes, warm and dry Neurologic: babcock, fluent speech, no tremor Psychiatric: Orientation: alert and oriented x 3 Insight: + limited insight Results & Data Vital Signs (Past 12 Hours) Vital Signs Temp Pulse Pulse Resp BP Pulse Ox O2 Del Method 04/10/24 09:00 80 04/10/24 08:00 36.8 C 89 20 134/62 96 Room Air 04/10/24 07:38 70 18 98 Room Air 04/10/24 03:27 36.6 C 88 19 123/65 97 Room Air 04/09/24 23:40 36.7 C 96 H 19 128/65 95 Room Air Laboratory Results 04/10/24 05:26 04/10/24 05:26 Diagnostic Findings CXR > no volume concerns; catheter terminates SVC per report
--- NOTE | 2024-04-10 11:44 | Surgery Consultation ---
Date of Consultation April 10, 2024 Assessment & Plan (1) Complications, dialysis, catheter, mechanical: This is a 73y F who resides at [facility] with a PMH of DM2, HLD, obesity, anxiety/depression, hypothyroid, h/o TIA and stroke, hip fracture, ESRD on dialysis who presents to the [facility] on 04/09 with issues utilizing her dialysis catheter. She dialyzes at on a MWF basis. She said on Sunday it was used, but was slow and there were some issues with it, but was able to complete the session. Then sunday apparently they were having a hard time with it and it kept alarming. She was asked to come into the ER at that point given concern for malfunctioning dialysis catheter. In our records it shows catheter was exchanged by Dr. Womack in october of this year. She states sometime afterwards it became infected requiring removal and then replacement of a L sided catheter that was performed at [facility] sometime in january. We have been asked to consider catheter exchange this admission as vascular surgery is unavailable this wk. My attending spoke with nephrology who thinks that may be able to temporize her through the wknd as the catheter is not completely unusable. Blood work does show a K 6.1, cr 6.7. Regardless it will require exchanged in the near future. Unfortunately from that perspective she is on plavix, last dose documented 04/09 at 23:06, and we would not perform the exchange ourselves until that is washed out. Form our perspective our earliest availability then to perform this would be next sunday. There is a chance vascular surgery may be back on service next week and if this is the case I would reach out to them on Sunday for them to handle this situation as they perform these on a more routine basis. If not, we can exchange it Sunday if she remains admitted vs. if she is discharged over the wknd then we schedule her to have it done as an outpatient next sunday. Plavix will need to continue to be held. as above. hold plavix. either vascular surgery can exchange sunday or we will exchange sunday. History of Present Illness Attending Physician: Efrain Loaiza MD History of Present Illness This is a 73y F who resides at [facility] with a PMH of DM2, HLD, obesity, anxiety/depression, hypothyroid, h/o TIA and stroke, hip fracture, ESRD on dialysis who presents to the [facility] on 04/09 with issues utilizing her dialysis catheter. She dialyzes at on a MWF basis. She said on Sunday it was used, but was slow and there were some issues with it. Then sunday apparently they were having a hard time with it and it kept alarming. She was asked to come into the ER at that point given concern for malfunctioning dialysis catheter. In our records it shows catheter was exchanged by Dr. Womack in october of this year. She states sometime afterwards it became infected requiring removal and then replacement of a L sided catheter that was performed at [facility]. We have been asked to consider catheter exchange this admission as vascular surgery is unavailable this wk. Patient denies any pains, chest pain and she is "unsure" if had any recent fevers/chills. Otherwise no major complaints. She says she tries to be as independent as she can be given her hip facture (of which she said her son DANITA did not opt for repair at the time of the incident) and mostly uses the wheelchair to get around and can stand with assistance. Allergies Allergy/AdvReac Type Severity Reaction Status Date / Time meperidine Allergy Intermediate hypotension-passed Verified 04/09/24 20:06 out Home Medications Medication Instructions Recorded Confirmed Type bumetanide 2 mg tablet 4 mg PO BID 04/20/22 04/09/24 History cholecalciferol (vitamin D3) 125 125 mcg PO QPM 04/20/22 04/09/24 History mcg (5,000 unit) tablet (Vitamin D3) atorvastatin 40 mg tablet 40 mg PO HS 07/23/22 04/09/24 History docusate sodium 100 mg capsule 100 mg PO BID 07/23/22 04/09/24 History insulin aspar prot-insulin aspart 40 unit subcut QPM 07/23/22 04/09/24 History 100 unit/mL (70-30) subcutaneous pen (Novolog Mix 70-30FlexPen U-100) insulin aspar prot-insulin aspart 40 unit subcut UD 07/23/22 04/09/24 History 100 unit/mL (70-30) subcutaneous pen (Novolog Mix 70-30FlexPen U-100) isosorbide mononitrate 30 mg 30 mg PO QPM 07/23/22 04/09/24 History tablet,extended release 24 hr levothyroxine 50 mcg tablet 50 mcg PO DAILY 07/23/22 04/09/24 History melatonin 10 mg tablet 10 mg PO HS Sleep 07/23/22 04/09/24 History metoprolol succinate 50 mg 50 mg PO QPM 07/23/22 04/09/24 History tablet,extended release 24 hr tramadol 50 mg tablet 50 mg PO Q4 PRN Pain 5-10 07/23/22 04/09/24 History aspirin 81 mg tablet,delayed 81 mg PO HS 05/18/23 04/09/24 History release duloxetine 20 mg capsule,delayed 20 mg PO QPM 05/18/23 04/09/24 History release oxybutynin chloride 5 mg tablet 2.5 mg PO QPM 05/18/23 04/09/24 History ropinirole 0.25 mg tablet 0.25 mg PO HS 05/18/23 04/09/24 History acetaminophen 325 mg tablet 650 mg PO Q6 PRN TEMP > 100 04/09/24 04/09/24 History acetaminophen 325 mg tablet 650 mg PO Q6 PRN Pain (Scale Score 04/09/24 04/09/24 History (Tylenol) 1-4) amlodipine 5 mg tablet 10 mg PO QPM 04/09/24 04/09/24 History calcium acetate 667 mg tablet 1,334 mg PO WM 04/09/24 04/09/24 History calcium acetate 667 mg tablet 667 mg PO . NEEDED PRN WITH 04/09/24 04/09/24 History SNACKS clopidogrel 75 mg tablet 75 mg PO QPM 04/09/24 04/09/24 History ferric citrate 210 mg iron tablet 210 mg PO WM 04/09/24 04/09/24 History (Auryxia) gabapentin 100 mg capsule 100 mg PO 3XWK 04/09/24 04/09/24 History gabapentin 600 mg tablet 600 mg PO QPM 04/09/24 04/09/24 History mirtazapine 7.5 mg tablet 7.5 mg PO HS 04/09/24 04/09/24 History ondansetron 4 mg disintegrating 4 mg PO Q6H PRN Nausea And Vomiting 04/09/24 04/09/24 History tablet pantoprazole 40 mg tablet,delayed 40 mg PO HS 04/09/24 04/09/24 History release polyethylene glycol 3350 17 17 g PO UD 04/09/24 04/09/24 History gram/dose oral powder (Miralax) polyethylene glycol 3350 17 17 g PO UD 04/09/24 04/09/24 History gram/dose oral powder (Miralax) sennosides 8.6 mg-docusate sodium 1 tab-cap PO UD 04/09/24 04/09/24 History 50 mg tablet (Senokot-S) sennosides 8.6 mg-docusate sodium 1 tab-cap PO UD 04/09/24 04/09/24 History 50 mg tablet (Senokot-S) Patient History Medical History (Updated 04/10/24 @ 13:12 by Bozena Farias MD, PhD) ESRD (end stage renal disease) on dialysis hemodialysis done on site at [facility] w/ [facility] Ambulatory dysfunction Dyspnea on exertion Exertional chest pain Surgical History 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 Family History Other Cancer Social History Smoking Status: Never smoker Hx Alcohol Use: No Hx Substance Use: No Preferred Language: Thai Communication Ability: Effective Buyer Broker Required: No Beliefs That Will Affect Care: None marital status: / Current Living Situation: Detention Current Living Situation Comment: [facility] Other Information That Helps Us Care for You: No Feels Safe at Home: Yes Safety Concerns: Feels Safe At This Time Assistive Devices: Wheelchair Review of Systems Respiratory: no dyspnea Cardiovascular: no chest pain Gastrointestinal: + nausea (some this AM); no abdominal pa in and no vomiting Genitourinary: voids 1-2x/daily per patient Physical Exam Physical Exam: initially difficult to arouse, but once awakened she was very communicative Respiratory: normal respiratory effort Skin: Left dialysis catheter in place, no signs of infection Results & Data Vital Signs (Past 12 Hours) Vital Signs Temp Pulse Pulse Resp BP Pulse Ox O2 Del Method 04/10/24 11:30 98.4 F 80 18 118/57 L 97 Room Air 04/10/24 09:00 80 04/10/24 08:00 98.2 F 89 20 134/62 96 Room Air 04/10/24 07:38 70 18 98 Room Air 04/10/24 03:27 97.9 F 88 19 123/65 97 Room Air PG Care Time/CCT Total # of Minutes Spent Total Time Spent with Patient: Total time spent is greater than 50% in coordination of care (as documented) at patient's floor/unit and/or counseling patient: Coding Level of Care Code 54090 INT INP/OBS CARE 2/55MIN Diagnoses Complications, dialysis, catheter, mechanical T82.49XA Encounter type: initial encounter (1) Complications, dialysis, catheter, mechanical Encounter type: initial encounter Qualified Code(s): T82.49XA - Other complication of vascular dialysis catheter, initial encounter
[2024-04-10] MEDS: PATIROMER CALCIUM SORBITEX 8.4 GM PACK PO STA (13:02)
--- NOTE | 2024-04-10 15:04 | Communication Note ---
Date of Service: April 10, 2024 Dialysis update: -business info consultant finds cracks or leakage or other gross defect in catheter after a power flush -attempted dialysis today >> running reversed in Trendelenberg holding head to one side and still barely at Qb 250 ml/min Needs new catheter; not appropriate to temporize as OP; d/w Dr Ann who will evaluate for temporary line until vascular can do TDC next week; unlikely to get prompter care w/ transfer to another facility given upcoming weekend. Dr Loaiza aware.
--- NOTE | 2024-04-10 15:35 | Critical Care Consultation ---
Date of Consultation April 10, 2024 Assessment & Plan (1) Hyperkalemia: (2) Hemodialysis catheter malfunction: Plan --Hyperkalemia with nonfunctioning dialysis catheter Potassium today was 6.1 -- End-stage renal disease on HD through left sided permacath Plan: I went to the patient's room and discussed the need for a new dialysis catheter given that current dialysis catheter is not working The catheter that I am going to put is, temporary dialysis catheter and she will need a permanent dialysis catheter once somebody is able to put it in. Risk and benefit of the procedure was explained to her in depth. She stated that she would like to speak with her sister before making a decision regarding a temporary dialysis catheter. Nurse did call me later on stating that the patient spoke with her sister and they have decided to go with the permacatheter rather than temporary dialysis catheter as they would prefer only 1 procedure This was relayed to Dr. Chaparro Please note the above document was generated using voice recognition software. It may contain grammatical, syntax or spelling errors.Any formal questions or concerns about the content, text or information contained within the body of this dictation should be directly addressed to the provider for clarification. History of Present Illness Attending Physician: Efrain Loaiza MD History of Present Illness 73-year-old female was admitted to the hospital because of dialysis catheter malfunction Past medical history: End-stage renal disease on HD through left-sided permacath, history of CVA, hypertension, GERD, diabetes I was requested to see if I can put a temporary catheter by Dr. Chaparro At the time of examination patient was back from the dialysis unit as they had failed to dialyze her She was not in any respiratory distress Respiration was in the mid teens, systolic blood pressure was in the 120s. Saturating well on room air. She denied any headache, no chest pain, no shortness of breath No headache or blurry vision Patient had a permacath on the right side which was infected leading to a permacath placement on the left side. Prior to this she used to have peritoneal dialysis Social history: Lifetime non-smoker Allergies Allergy/AdvReac Type Severity Reaction Status Date / Time meperidine Allergy Intermediate hypotension-passed Verified 04/09/24 20:06 out Home Medications Medication Instructions Recorded Confirmed Type bumetanide 2 mg tablet 4 mg PO BID 04/20/22 04/09/24 History cholecalciferol (vitamin D3) 125 125 mcg PO QPM 04/20/22 04/09/24 History mcg (5,000 unit) tablet (Vitamin D3) atorvastatin 40 mg tablet 40 mg PO HS 07/23/22 04/09/24 History docusate sodium 100 mg capsule 100 mg PO BID 07/23/22 04/09/24 History insulin aspar prot-insulin aspart 40 unit subcut QPM 07/23/22 04/09/24 History 100 unit/mL (70-30) subcutaneous pen (Novolog Mix 70-30FlexPen U-100) insulin aspar prot-insulin aspart 40 unit subcut UD 07/23/22 04/09/24 History 100 unit/mL (70-30) subcutaneous pen (Novolog Mix 70-30FlexPen U-100) isosorbide mononitrate 30 mg 30 mg PO QPM 07/23/22 04/09/24 History tablet,extended release 24 hr levothyroxine 50 mcg tablet 50 mcg PO DAILY 07/23/22 04/09/24 History melatonin 10 mg tablet 10 mg PO HS Sleep 07/23/22 04/09/24 History metoprolol succinate 50 mg 50 mg PO QPM 07/23/22 04/09/24 History tablet,extended release 24 hr tramadol 50 mg tablet 50 mg PO Q4 PRN Pain 5-10 07/23/22 04/09/24 History aspirin 81 mg tablet,delayed 81 mg PO HS 05/18/23 04/09/24 History release duloxetine 20 mg capsule,delayed 20 mg PO QPM 05/18/23 04/09/24 History release oxybutynin chloride 5 mg tablet 2.5 mg PO QPM 05/18/23 04/09/24 History ropinirole 0.25 mg tablet 0.25 mg PO HS 05/18/23 04/09/24 History acetaminophen 325 mg tablet 650 mg PO Q6 PRN TEMP > 100 04/09/24 04/09/24 History acetaminophen 325 mg tablet 650 mg PO Q6 PRN Pain (Scale Score 04/09/24 04/09/24 History (Tylenol) 1-4) amlodipine 5 mg tablet 10 mg PO QPM 04/09/24 04/09/24 History calcium acetate 667 mg tablet 1,334 mg PO WM 04/09/24 04/09/24 History calcium acetate 667 mg tablet 667 mg PO . NEEDED PRN WITH 04/09/24 04/09/24 History SNACKS clopidogrel 75 mg tablet 75 mg PO QPM 04/09/24 04/09/24 History ferric citrate 210 mg iron tablet 210 mg PO WM 04/09/24 04/09/24 History (Auryxia) gabapentin 100 mg capsule 100 mg PO 3XWK 04/09/24 04/09/24 History gabapentin 600 mg tablet 600 mg PO QPM 04/09/24 04/09/24 History mirtazapine 7.5 mg tablet 7.5 mg PO HS 04/09/24 04/09/24 History ondansetron 4 mg disintegrating 4 mg PO Q6H PRN Nausea And Vomiting 04/09/24 04/09/24 History tablet pantoprazole 40 mg tablet,delayed 40 mg PO HS 04/09/24 04/09/24 History release polyethylene glycol 3350 17 17 g PO UD 04/09/24 04/09/24 History gram/dose oral powder (Miralax) polyethylene glycol 3350 17 17 g PO UD 04/09/24 04/09/24 History gram/dose oral powder (Miralax) sennosides 8.6 mg-docusate sodium 1 tab-cap PO UD 04/09/24 04/09/24 History 50 mg tablet (Senokot-S) sennosides 8.6 mg-docusate sodium 1 tab-cap PO UD 04/09/24 04/09/24 History 50 mg tablet (Senokot-S) Patient History Medical History (Updated 04/10/24 @ 13:12 by Bozena Farias MD, PhD) ESRD (end stage renal disease) on dialysis hemodialysis done on site at [facility] w/ [facility] Ambulatory dysfunction Dyspnea on exertion Exertional chest pain Surgical History 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 Family History Other Cancer Social History Smoking Status: Never smoker Hx Alcohol Use: No Hx Substance Use: No Preferred Language: Chinese Communication Ability: Effective Special Delivery Carrier Required: No Beliefs That Will Affect Care: None marital status: / Current Living Situation: [facility] Current Living Situation Comment: lives at [facility] facility Other Information That Helps Us Care for You: No Feels Safe at Home: Yes Safety Concerns: Feels Safe At This Time Assistive Devices: Wheelchair Review of Systems 2 Review of Systems: All systems reviewed & are unremarkable except as noted in HPI & below Physical Exam 2 Physical Exam: Constitutional: No acute distress HEENT: EOMI, PERRLA Respiratory system: Good air entry bilaterally, no wheeze, no rhonchi, mild crackles bilaterally CVS: S1-S2 positive, no murmurs or gallops Abdomen: Soft, nontender, nondistended, positive bowel sounds x4, obese Extremities: +2 pulses bilaterally radialis/ dorsalis pedis, no cyanosis, +1 edema bilateral lower extremity Neuro: Awake alert oriented x3 Psych: Normal mood and affect G/U: No Soriano Skin: no rashes, warm and dry Lymphatic: no cervical or axillary lymphadenopathy Results & Data Results & Data Vital Signs (Past 12 Hours) Vital Signs Temp Pulse Pulse Pulse Resp BP BP 04/10/24 15:07 36.4 C L 83 126/51 L 04/10/24 14:30 87 98/51 L 04/10/24 14:00 82 118/69 04/10/24 13:46 36.4 C L 81 04/10/24 11:30 36.9 C 80 18 118/57 L 04/10/24 09:00 80 04/10/24 08:00 36.8 C 89 20 134/62 04/10/24 07:38 70 18 Pulse Ox O2 Del Method 04/10/24 15:07 04/10/24 14:30 04/10/24 14:00 04/10/24 13:46 04/10/24 11:30 97 Room Air 04/10/24 09:00 04/10/24 08:00 96 Room Air 04/10/24 07:38 98 Room Air Laboratory Results 04/10/24 05:26 04/10/24 05:26 Coding Level of Care Code 46315 IN/OBS CONSULT LVL 3,45M Diagnoses Hyperkalemia E87.5 Hemodialysis catheter malfunction T82.41XA
--- NOTE | 2024-04-10 15:44 | Hospitalist Progress Note ---
Date of Service April 10, 2024 Assessment & Plan (1) Complications, dialysis, catheter, mechanical: Plan: The patient apparently refused placement of a temporary dialysis catheter preferring to wait until a permacath can be placed next week. However, I am not sure if she can wait that long. Nephrology, Dr. Chaparro, is aware and will intervene. Daily labs ordered (2) Anemia: Plan: Chronic. No overt GI bleeding. Serial labs (3) End stage renal disease: Plan: Hyperkalemia due to end-stage renal disease. 1 dose of patiromer was ordered today, April 11. Hemodialysis patient put current temporary dialysis catheter is malfunctioning. Appreciate nephrology consultation. Serial labs (4) Hypertension: Plan: Stable. Continue current medical management (5) GERD (gastroesophageal reflux disease): Plan: Stable. Continue current medical management (6) DM type 2 (diabetes mellitus, type 2): Plan: Currently controlled. ADA diet. Sliding scale coverage. (7) Obesity (BMI 30-39.9): Plan: Significant weight loss recommended Plan Eventual discharge back to home Admission and Anticipated Discharge Date Admission Date: April 09, 2024 Subjective Alert. The patient apparently refused placement of a temporary dialysis catheter, preferring to wait until a permanent catheter can be placed early next week. However, I am not sure she can wait that long. Nephrology, Dr. Chaparro, will intervene. Plavix is on hold. Daily labs ordered Review of Systems 2 Review of Systems: Constitutionalno fever or chills ENTno blurred vision, no double vision, no epistaxis, no sore throat Respiratoryno cough, no wheezing, no shortness of breath Cardiacno palpitations, no chest pain, no syncope Liz nausea, vomiting, diarrhea, melena, hematochezia GUno urinary retention, no urinary incontinence, no dysuria, no hematuria Musculoskeletalno joint pain, no muscle tenderness Skinno bruising, no rashes, no pruritus Neurono isolated weakness, no paresthesia, no weakness Psychno depression, no anxiety Physical Exam 2 Physical Exam: General-alert and oriented x3, no fever, no chills HEENT-head atraumatic and normocephalic, pupils equal and reactive to light, extraocular muscles intact Neck-no lymphadenopathy or thyromegaly, trachea midline Chest-clear to auscultation. No rales, wheezing or rhonchi Cardiac-regular rate and rhythm, normal S1 and S2 Abdomen-normal bowel sounds, no hepatosplenomegaly Extremities-no cyanosis, clubbing, or edema Neuro-cranial nerves II through XII intact, motor and sensory function within normal limits, strength symmetrical, no focal deficits Psych-normal affect, normal mood Results & Data Results & Data Vital Signs (Past 12 Hours) Vital Signs Temp Pulse Pulse Pulse Resp BP BP 04/10/24 15:07 36.4 C L 83 126/51 L 04/10/24 14:30 87 98/51 L 04/10/24 14:00 82 118/69 04/10/24 13:46 36.4 C L 81 04/10/24 11:30 36.9 C 80 18 118/57 L 04/10/24 09:00 80 04/10/24 08:00 36.8 C 89 20 134/62 04/10/24 07:38 70 18 Pulse Ox O2 Del Method 04/10/24 15:07 04/10/24 14:30 04/10/24 14:00 04/10/24 13:46 04/10/24 11:30 97 Room Air 04/10/24 09:00 04/10/24 08:00 96 Room Air 04/10/24 07:38 98 Room Air Laboratory Results 04/10/24 05:26 04/10/24 05:26 PG Care Time/CCT Total # of Minutes Spent Total Time Spent with Patient: Total time spent is greater than 50% in coordination of care (as documented) at patient's floor/unit and/or counseling patient: Coding Level of Care Code 70512 SUB INP/OBS CARE 3/50MIN Diagnoses Complications, dialysis, catheter, mechanical T82.49XA Encounter type: initial encounter Anemia D64.9 End stage renal disease N18.6 Hypertension I10 GERD (gastroesophageal reflux disease) K21.9 DM type 2 (diabetes mellitus, type 2) E11.9 Obesity (BMI 30-39.9) E66.9 (1) Complications, dialysis, catheter, mechanical Encounter type: initial encounter Qualified Code(s): T82.49XA - Other complication of vascular dialysis catheter, initial encounter
--- NOTE | 2024-04-10 17:18 | Communication Note ---
Date of Service: April 10, 2024 15 minute discussion with pt and by phone her sister about why it's not safe to wait until next Sunday likely at earliest for TDC exchange and why (due p rimarily to hyperkalemia) pt needs to have temporary catheter so that we can control potassium until we can get permcath exch. [facility] has OR time on at earliest so; unlikely [facility] would accept do more timely exchange before next week at this point given weekend > so either way she will be inpt through the weekend until exch early next week Reviewed w/ Dr Loaiza > he'll recheck K and get her lokelma 10 mg tid starting now (barring that recommend veltassa). Dr Ann updated and will do temp line in AM unless emergency K levels. She did have 1 hr of HD though w/ very poor TDC function clearance will have been minimal. will cont to follow.
[2024-04-10] MEDS: SODIUM ZIRCONIUM CYCLOSILICATE 10 GM PACKET PO SCH (17:38)
[2024-04-10] MEDS: MELATONIN 3 MG TAB PO SCH (20:46)
[2024-04-10] MEDS: traMADol HCL 50 MG TABLET PO PRN (20:46)
[2024-04-11] MEDS: HEPARIN SOD (PORCINE) 1000 UNIT/ML IV SCH (03:17)
[2024-04-11] MEDS: HEPARIN SOD (PORCINE) 1000 UNIT/ML IV ONE (03:17)
[2024-04-11 06:30] LABS: Basophils # (auto) 0.09 K/uL (0.00-0.20); Basophils % (auto) 1.1 %; Eosinophils # (auto) 0.37 K/uL (0.00-0.50); Eosinophils % (auto) 4.4 %; Hematocrit (blood only) 30.8 % (37.0-47.0); Immature Granulocytes # (auto) 0.06 K/uL (0.01-0.20); Immature Granulocytes % (auto) 0.7 %; Lymphocytes # (auto) 1.86 K/uL (1.20-3.40); Lymphocytes % (auto) 22.2 %; Mean Corpuscular Hemoglobin 31.1 pg (25.0-34.0); Mean Corpuscular Hgb Conc 32.5 g/dL (32.0-36.0); Mean Corpuscular Volume 95.7 fL (80.0-100.0); Mean Platelet Volume 10.4 fL (9.4-12.4); Neutrophils # (auto) 5.51 K/uL (1.40-6.50); Neutrophils % (auto) 65.6 %; Platelet Count 226 K/uL (130-400); RDW Coefficient of Variation 13.4 % (11.5-14.5); RDW Standard Deviation 46.7 fL (36.4-46.3); Red Blood Count 3.22 M/uL (4.20-5.40); White Blood Count 8.39 K/ul (4.8-10.8)
[2024-04-11 06:56] LABS: Potassium 5.7 mmol/L (3.5-5.1)
[2024-04-11 07:07] LABS: BUN Creatinine Ratio 8.8 (10-20); Est GFR (African American) 6.7 ml/min; Est GFR (Non-African American) 5.7 ml/min
[2024-04-11] MEDS ORDERED: SODIUM CHLORIDE 0.9% 1,000 ML IV PRN (07:39)
--- NOTE | 2024-04-11 10:18 | Surgery Progress Note ---
Date of Service April 11, 2024 Assessment & Plan (1) Complications, dialysis, catheter, mechanical: Plan: will need exchanged next week. will d/w Dr. Womack. one of us will exchange early next week. hold plavix Admission and Anticipated Discharge Date Admission Date: April 09, 2024 Subjective pt doing ok. no new complaints Physical Exam Physical Exam: alert. nad left IJ HD cath in place. no sign of infection Results & Data Vital Signs (Past 12 Hours) Vital Signs Temp Pulse Pulse Resp BP Pulse Ox O2 Del Method 04/11/24 08:00 Room Air 04/11/24 08:00 74 04/11/24 07:30 36.8 C 88 20 137/89 94 Room Air 04/11/24 03:26 36.5 C 76 18 126/66 93 Room Air 04/10/24 23:37 36.4 C L 81 18 109/65 95 Room Air PG Care Time/CCT Total # of Minutes Spent Total Time Spent with Patient: Total time spent is greater than 50% in coordination of care (as documented) at patient's floor/unit and/or counseling patient: Coding Level of Care Code 76608 SUB INP/OBS CARE 09/13MIN Diagnoses Complications, dialysis, catheter, mechanical T82.49XA Encounter type: initial encounter (1) Complications, dialysis, catheter, mechanical Encounter type: initial encounter Qualified Code(s): T82.49XA - Other complication of vascular dialysis catheter, initial encounter
--- NOTE | 2024-04-11 11:18 | Critical Care Progress Note ---
Date of Service April 11, 2024 Assessment & Plan (1) Hyperkalemia: (2) Hemodialysis catheter malfunction: Plan --Hyperkalemia with nonfunctioning dialysis catheter Potassium today was 5.7 -- End-stage renal disease on HD through left sided permacath Plan: Yesterday patient spoke with Dr. Chaparro as well as her sister and not she is agreeable to temporary catheter Risk and benefit of the procedure was explained to her in depth. Right femoral catheter will be placed given she already has left IJ permacath Please note the above document was generated using voice recognition software. It may contain grammatical, syntax or spelling errors.Any formal questions or concerns about the content, text or information contained within the body of this dictation should be directly addressed to the provider for clarification. Admission and Anticipated Discharge Date Admission Date: April 09, 2024 Subjective Patient seen and examined at bedside. No acute distress, no adverse events overnight Denied any chest pain, no shortness of breath, no headache, no nausea, no vomiting Last night patient spoke with Dr. Chaparro and she is agreeable to temporary catheter placement today Review of Systems 2 Review of Systems: All systems reviewed & are unremarkable except as noted in Subjective Physical Exam 2 Physical Exam: Constitutional: No acute distress HEENT: EOMI, PERRLA Respiratory system: Good air entry bilaterally, no wheeze, no rhonchi, mild crackles bilaterally CVS: S1-S2 positive, no murmurs or gallops Abdomen: Soft, nontender, nondistended, positive bowel sounds x4, obese Extremities: +2 pulses bilaterally radialis/ dorsalis pedis, no cyanosis, +1 edema bilateral lower extremity Neuro: Awake alert oriented x3 Psych: Normal mood and affect G/U: No Soriano Skin: no rashes, warm and dry Lymphatic: no cervical or axillary lymphadenopathy Results & Data Results & Data Vital Signs (Past 12 Hours) Vital Signs Temp Pulse Pulse Resp BP Pulse Ox O2 Del Method 04/11/24 08:00 Room Air 04/11/24 08:00 74 04/11/24 07:30 36.8 C 88 20 137/89 94 Room Air 04/11/24 03:26 36.5 C 76 18 126/66 93 Room Air 04/10/24 23:37 36.4 C L 81 18 109/65 95 Room Air Laboratory Results 04/11/24 06:06 04/11/24 06:06 Coding Level of Care Code 91582 SUB INP/OBS CARE 2/35MIN Diagnoses Hyperkalemia E87.5 Hemodialysis catheter malfunction T82.41XA
--- NOTE | 2024-04-11 11:19 | Procedure Note ---
Procedure Note Date of Service April 11, 2024 Procedure: Inserting ultrasound-guided central field pipelines supervisor: Dr. Tara Ann Indication: Hyperkalemia and end-stage renal disease patient and nonfunctioning permacath Consent: Signed by patient and verified with timeout prior to procedure. Anesthesia: 1% lidocaine without epinephrine local. Procedure: Consent was verified and timeout performed. Appropriate imaging studies were reviewed prior to the procedure. Under aseptic and sterile condition, right femoral vein was accessed under direct ultrasound guidance. Guidewire was confirmed to be within the lumen of vein with the help of ultrasound. Catheter was introduced via Seldinger technique. Guide a wire was removed. Good non-pulsatile blood flow was appreciated from all the ports. The catheter was placed at 24 cm and sutured in place. BioPatch was applied to the catheter and a sterile Tegaderm dressing was applied over the catheter with careful attention to sterility. Patient tolerated the procedure well. Blood loss: Less than 2 cc Complications: None [facility] Procedure Codes (Charges) Tubes, Drains, and Vasc Access Procedure 1: Tubes, Drains, and Vasc Access: [id number] Insertion of cannula for hemodialysis Procedure 2: Tubes, Drains, and Vasc Access: [id number] Ultrasound Guidance For Vascular Coding CPT Codes Tubes, Drains, and Vasc Access - Tubes, Drains, and Vasc Access: [id number] Insertion of cannula for hemodialysis ([id number]) Tubes, Drains, and Vasc Access - Tubes, Drains, and Vasc Access: [id number] Ultrasound Guidance For Vascular ([id number]) Additional Codes Date of Service (PG.SURGERY)
--- NOTE | 2024-04-11 12:35 | Dialysis Progress Note ---
Date of Service April 11, 2024 Assessment & Plan (1) Hemodialysis catheter malfunction: Plan: OP dialysis catheter runs only at Qb 250 and some small air bubbles noted in line > not enough to trip alarms but concern for crack/potential bleed or infection if worsens or/and catheter unchanged, though no gross defects found. she is on plavix, last dose 10/10. appreciate gen surgery evaluation >> per them she can't have exchange before early next week, likely Sunday. appreciate critical care assistance with getting temp line plan will be for vascular surgery to exchange TDC on 04/14 or more likely 04/15; primary service aware to have her NPO for both those days; vascular aware resume plavix prior to d/c Care coordinated w/ Dr Loaiza and w/ vascular [employer]. (2) Hyperkalemia: Plan: managed medically and w/ HD >> from poor dialysis catheter function now that she has functional catheter will stop K binders and use prn daily bmp on weekend cont renal diet (3) End stage renal disease: Plan: ESRD on HD; had 2 treatments this week both limited by catheter poor performance -1.5L FR ordered -agree w/ continuing OP phosLo 2AC/1 snack -having HD today and treatment going well; monitor labs through weekend but anticipate next tx for Sunday -stopping bumex b/c she has minimal UOP Admission and Anticipated Discharge Date Admission Date: April 09, 2024 Subjective no interval events. now has R groin temp cath. no sob, no uncontrolled pain, no n/v Review of Systems 2 Review of Systems: All systems reviewed & are unremarkable except as noted in Subjective Physical Exam 2 Constitutional: well developed and well nourished; no acute distress Eyes: EOM intact bilaterally ENMT: Ears: no external ear abnormality Nose: no external nose abnormality Mouth: + dry oral mucous membranes Neck: no nuchal rigidity Respiratory: normal respiratory effort Auscultation: + diminished lung sounds Cardiovascular: RRR, no murmur, no edema Gastrointestinal (Abdomen): Inspection/Auscultation: normal bowel sounds P ercussion/Palpation: abdomen soft; abdomen nontender Musculoskeletal: Extremities: strength 5/5 throughout Skin: no rashes, warm and dry Psychiatric: Orientation: alert and oriented x 3 Insight: + limited insight Results & Data Vital Signs (Past 12 Hours) Vital Signs Temp Pulse Pulse Pulse Resp BP BP 04/11/24 12:00 70 122/64 04/11/24 11:30 66 115/69 04/11/24 11:23 67 123/67 04/11/24 11:15 36.6 C 67 04/11/24 08:00 04/11/24 08:00 74 04/11/24 07:30 36.8 C 88 20 137/89 04/11/24 03:26 36.5 C 76 18 126/66 Pulse Ox O2 Del Method 04/11/24 12:00 04/11/24 11:30 04/11/24 11:23 04/11/24 11:15 04/11/24 08:00 Room Air 04/11/24 08:00 04/11/24 07:30 94 Room Air 04/11/24 03:26 93 Room Air Laboratory Results 04/11/24 06:06 04/11/24 06:06
[2024-04-11 13:32] LABS: Hepatitis B Surface Antibody Immune
--- NOTE | 2024-04-11 14:22 | Hospitalist Progress Note ---
Date of Service April 11, 2024 Assessment & Plan (1) Complications, dialysis, catheter, mechanical: Plan: A right femoral vein temporary dialysis catheter has been placed and she did undergo hemodialysis today, April 11. Appreciate nephrology consultation and recommendations. Daily lab ordered. Lokelma has been discontinued as potassium will now be manageable with hemodialysis. (2) Anemia: Plan: Chronic. No overt GI bleeding. Serial labs (3) End stage renal disease: Plan: Hyperkalemia on admission is due to end-stage renal disease. Lokelma has now been discontinued since hemodialysis has been restarted. Serial labs ordered. (4) Hypertension: Plan: Stable. Continue current medical management (5) GERD (gastroesophageal reflux disease): Plan: Stable. Continue current medical management (6) DM type 2 (diabetes mellitus, type 2): Plan: Currently controlled. ADA diet. Sliding scale coverage. (7) Obesity (BMI 30-39.9): Plan: Significant weight loss recommended Plan She will have a tunneled dialysis catheter placed either Sunday or Sunday that hopefully she can go home. Admission and Anticipated Discharge Date Admission Date: April 09, 2024 Subjective The patient was seen while in hemodialysis. She now has a right femoral vein temporary hemodialysis catheter in place. Case discussed with nephrology. Lokelma has been discontinued now. Potassium should normalize now with hemodialysis. Daily labs ordered. Review of Systems 2 Review of Systems: Constitutionalno fever or chills ENTno blurred vision, no double vision, no epistaxis, no sore throat Respiratoryno cough, no wheezing, no shortness of breath Cardiacno palpitations, no chest pain, no syncope Liz nausea, vomiting, diarrhea, melena, hematochezia GUno urinary retention, no urinary incontinence, no dysuria, no hematuria Musculoskeletalno joint pain, no muscle tenderness Skinno bruising, no rashes, no pruritus Neurono isolated weakness, no paresthesia, no weakness Psychno depression, no anxiety Physical Exam 2 Physical Exam: General-alert and oriented x3, no fever, no chills HEENT-head atraumatic and normocephalic, pupils equal and reactive to light, extraocular muscles intact Neck-no lymphadenopathy or thyromegaly, trachea midline Chest-clear to auscultation. No rales, wheezing or rhonchi Cardiac-regular rate and rhythm, normal S1 and S2 Abdomen-normal bowel sounds, no hepatosplenomegaly Extremities-no cyanosis, clubbing, or edema Neuro-cranial nerves II through XII intact, motor and sensory function within normal limits, strength symmetrical, no focal deficits Psych-normal affect, normal mood Results & Data Results & Data Vital Signs (Past 12 Hours) Vital Signs Temp Pulse Pulse Pulse Resp BP BP 04/11/24 14:00 70 130/76 04/11/24 13:30 72 119/63 04/11/24 13:00 72 102/58 L 04/11/24 12:30 71 106/59 L 04/11/24 12:00 70 122/64 04/11/24 11:30 66 115/69 04/11/24 11:23 67 123/67 04/11/24 11:15 36.6 C 67 04/11/24 08:00 04/11/24 08:00 74 04/11/24 07:30 36.8 C 88 20 137/89 04/11/24 03:26 36.5 C 76 18 126/66 Pulse Ox O2 Del Method 04/11/24 14:00 04/11/24 13:30 04/11/24 13:00 04/11/24 12:30 04/11/24 12:00 04/11/24 11:30 04/11/24 11:23 04/11/24 11:15 04/11/24 08:00 Room Air 04/11/24 08:00 04/11/24 07:30 94 Room Air 04/11/24 03:26 93 Room Air Laboratory Results 04/11/24 06:06 04/11/24 06:06 PG Care Time/CCT Total # of Minutes Spent Total Time Spent with Patient: Total time spent is greater than 50% in coordination of care (as documented) at patient's floor/unit and/or counseling patient: Coding Level of Care Code 65283 SUB INP/OBS CARE 235MIN Diagnoses Complications, dialysis, catheter, mechanical T82.49XA Encounter type: initial encounter Anemia D64.9 End stage renal disease N18.6 Hypertension I10 GERD (gastroesophageal reflux disease) K21.9 DM type 2 (diabetes mellitus, type 2) E11.9 Obesity (BMI 30-39.9) E66.9 (1) Complications, dialysis, catheter, mechanical Encounter type: initial encounter Qualified Code(s): T82.49XA - Other complication of vascular dialysis catheter, initial encounter
[2024-04-11 14:55] LABS: Hep B Surface Ag with confirm Negative (Negative)
[2024-04-11] MEDS: GABAPENTIN 100 MG CAP PO SCH (16:15)
[2024-04-12 06:58] LABS: Basophils # (auto) 0.09 K/uL (0.00-0.20); Basophils % (auto) 1.1 %; Eosinophils # (auto) 0.46 K/uL (0.00-0.50); Eosinophils % (auto) 5.6 %; Hematocrit (blood only) 29.8 % (37.0-47.0); Hemoglobin 9.8 g/dl (12.0-16.0); Immature Granulocytes # (auto) 0.03 K/uL (0.01-0.20); Immature Granulocytes % (auto) 0.4 %; Lymphocytes # (auto) 1.67 K/uL (1.20-3.40); Lymphocytes % (auto) 20.2 %; Mean Corpuscular Hemoglobin 31.6 pg (25.0-34.0); Mean Corpuscular Hgb Conc 32.9 g/dL (32.0-36.0); Mean Corpuscular Volume 96.1 fL (80.0-100.0); Mean Platelet Volume 10.6 fL (9.4-12.4); Monocytes # (auto) 0.51 K/uL (0.11-0.59); Monocytes % (auto) 6.2 %; Neutrophils % (auto) 66.5 %; Platelet Count 213 K/uL (130-400); RDW Coefficient of Variation 13.4 % (11.5-14.5); RDW Standard Deviation 47.3 fL (36.4-46.3); White Blood Count 8.26 K/ul (4.8-10.8)
[2024-04-12 07:22] LABS: BUN Creatinine Ratio 7.2 (10-20); Calcium 8.6 mg/dl (8.6-10.3); Creatinine Clr Calc Pharmacy 12.5 ml/min; Est GFR (African American) 11.2 ml/min; Est GFR (Non-African American) 9.7 ml/min
--- NOTE | 2024-04-12 09:00 | Nephrology Progress Note ---
Date of Service April 12, 2024 Assessment & Plan (1) Hemodialysis catheter malfunction: Plan: OP tunneled dialysis catheter runs only at Qb 250 and some small air bubbles noted in line > not enough to trip alarms but concern for crack/potential bleed or infection if worsens or/and catheter unchanged, though no gross defects or signs/sx of infection found. she is on plavix, last dose 10/10. appreciate gen surgery evaluation >> per them she can't have exchange before early next week, likely Sunday, w/ this med on hold. appreciate critical care assistance with getting temp line; temp cath runs well plan will be for vascular surgery to exchange TDC on 04/14 or more likely 04/15; primary service aware to have her NPO for both those days; vascular aware and for c/s on 04/14 (order placed) resume plavix prior to d/c or after per surgery recs (2) Hyperkalemia: Plan: managed medically and w/ HD >> from poor dialysis catheter function. even after full HD session w/ functional catheter, K still 5 >started lokelma 10 mg daily today > will hopefully be able to use lokelma to medically manage through the weekend but cannot r/o need for HD to optimize for Sunday; that said we have lots of room to go up on lokelma daily bmp on weekend cont renal diet (3) End stage renal disease: Plan: ESRD on HD; had 2 treatments this week both limited by catheter poor performance; s/p full tx on 04/11 w/ good catheter function -1.5L FR ordered -continue OP phosLo 2A snack -anticipate next HD tx for Sunday -stopping bumex b/c she has minimal UOP > do not d/c on this Admission and Anticipated Discharge Date Admission Date: April 09, 2024 Subjective some anxiety and per RN uncontrolled anger yesterday; denies sob, uncontrolled or new musculoskeletal pain; no n/v Review of Systems 2 Review of Systems: All systems reviewed & are unremarkable except as noted in Subjective Physical Exam 2 Constitutional: well developed and well nourished; no acute distress Eyes: EOM intact bilaterally ENMT: Ears: no external ear abnormality Nose: no external nose abnormality Mouth: + dry oral mucous membranes Neck: no nuchal rigidity Respiratory: normal respiratory effort Auscultation: + diminished lung sounds Cardiovascular: RRR, no murmur, no edema Gastrointestinal (Abdomen): Inspection/Auscultation: normal bowel sounds P ercussion/Palpation: abdomen soft; abdomen nontender Musculoskeletal: Extremities: strength 5/5 throughout Skin: no rashes, warm and dry Psychiatric: Orientation: alert and oriented x 3 Insight: + limited insight Results & Data Vital Signs (Past 12 Hours) Vital Signs Temp Pulse Pulse Resp BP Pulse Ox O2 Del Method 04/12/24 03:22 36.4 C L 77 18 109/65 91 Room Air 04/11/24 23:46 36.9 C 87 20 121/63 92 Room Air 04/11/24 22:05 84 Laboratory Results 04/12/24 06:04 04/12/24 06:04
--- NOTE | 2024-04-12 11:46 | Hospitalist Progress Note ---
Date of Service April 12, 2024 Assessment & Plan (1) Complications, dialysis, catheter, mechanical: Plan: A right femoral vein temporary dialysis catheter has been placed and she did undergo hemodialysis on April 11. Appreciate nephrology consultation and recommendations. Daily lab ordered. Lokelma has been discontinued as potassium will now be manageable with hemodialysis. (2) Hyperkalemia: Plan: Treated with patiromer then Lokelma. She then started hemodialysis. Potassium has improved to 5.0. Will follow (3) Anemia: Plan: Chronic. No overt GI bleeding. Serial labs (4) End stage renal disease: Plan: Hyperkalemia on admission is due to end-stage renal disease. Lokelma has now been discontinued since hemodialysis has been restarted. Serial labs ordered. (5) Hypertension: Plan: Stable. Continue current medical management (6) GERD (gastroesophageal reflux disease): Plan: Stable. Continue current medical management (7) DM type 2 (diabetes mellitus, type 2): Plan: Currently controlled. ADA diet. Sliding scale coverage. (8) Obesity (BMI 30-39.9): Plan: Significant weight loss recommended Plan She will have a tunneled dialysis catheter placed either Sunday or Sunday then hopefully she can go home. Admission and Anticipated Discharge Date Admission Date: April 09, 2024 Subjective Alert and oriented. No distress. No new problems Review of Systems 2 Review of Systems: Constitutionalno fever or chills ENTno blurred vision, no double vision, no epistaxis, no sore throat Respiratoryno cough, no wheezing, no shortness of breath Cardiacno palpitations, no chest pain, no syncope Liz nausea, vomiting, diarrhea, melena, hematochezia GUno urinary retention, no urinary incontinence, no dysuria, no hematuria Musculoskeletalno joint pain, no muscle tenderness Skinno bruising, no rashes, no pruritus Neurono isolated weakness, no paresthesia, no weakness Psychno depression, no anxiety Physical Exam 2 Physical Exam: General-alert and oriented x3, no fever, no chills HEENT-head atraumatic and normocephalic, pupils equal and reactive to light, extraocular muscles intact Neck-no lymphadenopathy or thyromegaly, trachea midline Chest-clear to auscultation. No rales, wheezing or rhonchi Cardiac-regular rate and rhythm, normal S1 and S2 Abdomen-normal bowel sounds, no hepatosplenomegaly Extremities-no cyanosis, clubbing, or edema Neuro-cranial nerves II through XII intact, motor and sensory function within normal limits, strength symmetrical, no focal deficits Psych-normal affect, normal mood Results & Data Results & Data Vital Signs (Past 12 Hours) Vital Signs Temp Pulse Resp BP Pulse Ox O2 Del Method 04/12/24 09:20 36.5 C 04/12/24 03:22 36.4 C L 77 18 109/65 91 Room Air 04/11/24 23:46 36.9 C 87 20 121/63 92 Room Air Laboratory Results 04/12/24 06:04 04/12/24 06:04 PG Care Time/CCT Total # of Minutes Spent Total Time Spent with Patient: Total time spent is greater than 50% in coordination of care (as documented) at patient's floor/unit and/or counseling patient: Coding Level of Care Code 41704 SUB INP/OBS CARE 2/35MIN Diagnoses Complications, dialysis, catheter, mechanical T82.49XA Encounter type: initial encounter Hyperkalemia E87.5 Anemia D64.9 End stage renal disease N18.6 Hypertension I10 GERD (gastroesophageal reflux disease) K21.9 DM type 2 (diabetes mellitus, type 2) E11.9 Obesity (BMI 30-39.9) E66.9 (1) Complications, dialysis, catheter, mechanical Encounter type: initial encounter Qualified Code(s): T82.49XA - Other complication of vascular dialysis catheter, initial encounter
[2024-04-12] MEDS: SODIUM ZIRCONIUM CYCLOSILICATE 10 GM PACKET PO SCH (12:21)
[2024-04-13 07:33] LABS: BUN Creatinine Ratio 9.7 (10-20); Calcium 8.7 mg/dl (8.6-10.3); Creatinine Clr Calc Pharmacy 10.4 ml/min; Est GFR (Non-African American) 7.7 ml/min; Potassium 4.6 mmol/L (3.5-5.1)
[2024-04-13] MEDS: ACETAMINOPHEN 325 MG TAB PO PRN (09:25)
--- NOTE | 2024-04-13 14:27 | Hospitalist Progress Note ---
Date of Service April 13, 2024 Assessment & Plan (1) Complications, dialysis, catheter, mechanical: Plan: A right femoral vein temporary dialysis catheter has been placed and she did undergo hemodialysis on April 11. Appreciate nephrology consultation and recommendations. Daily lab ordered. Lokelma has been discontinued as potassium is now in a normal range. Serial labs. Vascular surgery will see the patient tomorrow, April 14, for scheduling of tunneled dialysis catheter placement (2) Hyperkalemia: Plan: Treated with patiromer then Lokelma. She then started hemodialysis. Potassium has improved to 4.6. Will follow (3) Anemia: Plan: Chronic. No overt GI bleeding. Serial labs (4) End stage renal disease: Plan: Hyperkalemia on admission is due to end-stage renal disease. Lokelma has now been discontinued since hemodialysis has been restarted. Serial labs ordered. (5) Hypertension: Plan: Stable. Continue current medical management (6) GERD (gastroesophageal reflux disease): Plan: Stable. Continue current medical management (7) DM type 2 (diabetes mellitus, type 2): Plan: Currently controlled. ADA diet. Sliding scale coverage. (8) Obesity (BMI 30-39.9): Plan: Significant weight loss recommended Plan She will have a tunneled dialysis catheter placed either Sunday or Sunday then hopefully she can go home. Admission and Anticipated Discharge Date Admission Date: April 09, 2024 Subjective Alert and oriented. No distress. Potassium is down to 4.6. Glucose 122. She had hemodialysis on April 11 which will restart tomorrow, April 13. Vascular surgery will see the patient on Sunday for scheduling of tunneled dialysis catheter. Review of Systems 2 Review of Systems: Constitutionalno fever or chills ENTno blurred vision, no double vision, no epistaxis, no sore throat Respiratoryno cough, no wheezing, no shortness of breath Cardiacno palpitations, no chest pain, no syncope Liz nausea, vomiting, diarrhea, melena, hematochezia GUno urinary retention, no urinary incontinence, no dysuria, no hematuria Musculoskeletalno joint pain, no muscle tenderness Skinno bruising, no rashes, no pruritus Neurono isolated weakness, no paresthesia, no weakness Psychno depression, no anxiety Physical Exam 2 Physical Exam: General-alert and oriented x3, no fever, no chills HEENT-head atraumatic and normocephalic, pupils equal and reactive to light, extraocular muscles intact Neck-no lymphadenopathy or thyromegaly, trachea midline Chest-clear to auscultation. No rales, wheezing or rhonchi Cardiac-regular rate and rhythm, normal S1 and S2 Abdomen-normal bowel sounds, no hepatosplenomegaly Extremities-no cyanosis, clubbing, or edema Neuro-cranial nerves II through XII intact, motor and sensory function within normal limits, strength symmetrical, no focal deficits Psych-normal affect, normal mood Results & Data Results & Data Vital Signs (Past 12 Hours) Vital Signs Temp Pulse Pulse Pulse Resp BP BP 04/13/24 11:37 36.3 C L 75 18 126/76 04/13/24 08:00 71 04/13/24 07:03 70 15 121/69 04/13/24 03:45 36.7 C 72 16 122/69 Pulse Ox O2 Del Method 04/13/24 11:37 97 Room Air 04/13/24 08:00 04/13/24 07:03 97 Room Air 04/13/24 03:45 94 Room Air Laboratory Results 04/12/24 06:04 04/13/24 05:32 PG Care Time/CCT Total # of Minutes Spent Total Time Spent with Patient: Total time spent is greater than 50% in coordination of care (as documented) at patient's floor/unit and/or counseling patient: Coding Level of Care Code 07118 SUB INP/OBS CARE 235MIN Diagnoses Complications, dialysis, catheter, mechanical T82.49XA Encounter type: initial encounter Hyperkalemia E87.5 Anemia D64.9 End stage renal disease N18.6 Hypertension I10 GERD (gastroesophageal reflux disease) K21.9 DM type 2 (diabetes mellitus, type 2) E11.9 Obesity (BMI 30-39.9) E66.9 (1) Complications, dialysis, catheter, mechanical Encounter type: initial encounter Qualified Code(s): T82.49XA - Other complication of vascular dialysis catheter, initial encounter
--- NOTE | 2024-04-13 18:18 | Nephrology Progress Note ---
Date of Service April 13, 2024 Assessment & Plan (1) Hemodialysis catheter malfunction: Plan: OP tunneled dialysis catheter runs only at Qb 250 and some small air bubbles noted in line > not enough to trip alarms but concern for crack/potential bleed or infection if worsens or/and catheter unchanged, though no gross defects or signs/sx of infection found. she is on plavix, last dose 10/10. appreciate gen surgery evaluation >> per them she can't have exchange before early next week, likely Sunday, w/ this med on hold. appreciate critical care assistance with getting temp line; temp cath runs well -vascular surgery to exchange TDC on 04/14 or more likely 04/15; primary service aware to have her NPO for both those days; vascular aware and for c/s on 04/14 (order placed) -resume plavix prior to d/c or after per surgery recs (2) Hyperkalemia: Plan: managed medically and w/ HD >> from poor dialysis catheter function. even after full HD session w/ functional catheter, K still 5 >started lokelma 10 mg daily 04/12 > K appropriate today on lokelma dosed daily daily bmp on weekend cont renal diet >>order in to stop lokelma after today's dose b/c should no longer be needed (3) End stage renal disease: Plan: ESRD on HD; had 2 treatments last week both limited by catheter poor performance; s/p full tx on 04/11 w/ good catheter function -1.5L FR ordered -continue OP phosLo 2AC/ snack -anticipate next HD tx for Saturday 04/14 orders in -stopping bumex b/c she has minimal UOP > do not d/c on this Admission and Anticipated Discharge Date Admission Date: April 09, 2024 Subjective no acute interval events clinically. feels no dyspnea or N. enjoying coloring. asks for reiteration of tx plan Review of Systems 2 Review of Systems: All systems reviewed & are unremarkable except as noted in Subjective Physical Exam 2 Constitutional: well developed and well nourished; no acute distress Eyes: EOM intact bilaterally ENMT: Ears: no external ear abnormality Nose: no external nose abnormality Mouth: + dry oral mucous membranes Neck: no nuchal rigidity Respiratory: normal respiratory effort Auscultation: + diminished lung sounds Cardiovascular: RRR, no murmur, no edema Gastrointestinal (Abdomen): Inspection/Auscultation: normal bowel sounds P ercussion/Palpation: abdomen soft; abdomen nontender Musculoskeletal: Extremities: strength 5/5 throughout Skin: no rashes, warm and dry Psychiatric: Orientation: alert and oriented x 3 Insight: + limited insight Results & Data Vital Signs (Past 12 Hours) Vital Signs Temp Pulse Pulse Pulse Resp BP BP 04/13/24 14:51 36.6 C 73 18 151/82 H 04/13/24 11:37 36.3 C L 75 18 126/76 04/13/24 08:00 71 04/13/24 07:03 70 15 121/69 Pulse Ox O2 Del Method 04/13/24 14:51 97 Room Air 04/13/24 11:37 97 Room Air 04/13/24 08:00 04/13/24 07:03 97 Room Air Laboratory Results 04/12/24 06:04 04/13/24 05:32
[2024-04-14 06:47] LABS: Calcium 7.9 mg/dl (8.6-10.3); Creatinine Clr Calc Pharmacy 8.5 ml/min; Est GFR (African American) 6.9 ml/min; Potassium 4.3 mmol/L (3.5-5.1)
[2024-04-14] MEDS ORDERED: SODIUM CHLORIDE 0.9% 1,000 ML IV PRN (07:00)
--- NOTE | 2024-04-14 10:48 | Hospitalist Progress Note ---
Date of Service April 14, 2024 Assessment & Plan (1) Complications, dialysis, catheter, mechanical: Plan: -A right femoral vein temporary dialysis catheter has been placed and started back on hemodialysis on April 11. -Appreciate nephrology consultation and recommendations. -Daily lab ordered -Lokelma has been discontinued as potassium is now in a normal range. Will continue to monitor closely with serial labs. -Vascular surgery consulted: Planning for Vascular access placement on 04/15/24 after discussion with vascular surgical team -NPO midnight for access (2) Hyperkalemia: Plan: -Now improved -Previously treated with patiromer then Lokelma. Now back on hemodialysis. -Continue to monitor Lytes closely (3) Anemia: Plan: -Chronic. No overt bleeding. -Possibly EPO with HD- will follow nephrology recommendations (4) End stage renal disease: Plan: -Hyperkalemia on admission is due to end-stage renal disease. -Hemodialysis has been restarted. -Serial labs ordered-continue close monitoring. (5) Hypertension: Plan: Stable. Continue current medical management (6) GERD (gastroesophageal reflux disease): Plan: -Stable. Continue current medical management (7) DM type 2 (diabetes mellitus, type 2): Plan: -Currently controlled. -ADA diet. -Sliding scale coverage. (8) Obesity (BMI 30-39.9): Plan: -Significant weight loss recommended Plan -Pending vascular access replacement Admission and Anticipated Discharge Date Admission Date: April 09, 2024 Subjective Patient seen and evaluated bedside. Overall patient reports feeling well. She reports some anxiety regarding vascular procedure but otherwise reports feeling well. Patient is scheduled for HD today and plan for tunneled vascular access with vascular surgery in the AM. Patient denies chest pain, palpitations, SOB, fevers, or chills. Review of Systems Review of Systems: Constitutionalno fever or chills ENTno blurred vision, no double vision, no epistaxis, no sore throat Respiratoryno cough, no wheezing, no shortness of breath Cardiacno palpitations, no chest pain, no syncope Liz nausea, vomiting, diarrhea, melena, hematochezia GUno urinary retention, no urinary incontinence, no dysuria, no hematuria Musculoskeletalno joint pain, no muscle tenderness Skinno bruising, no rashes, no pruritus Neurono isolated weakness, no paresthesia, no weakness Psychno depression, no anxiety Physical Exam Physical Exam: General-alert and oriented x3, no fever, no chills HEENT-head atraumatic and normocephalic, extraocular muscles intact Neck-no lymphadenopathy or thyromegaly, trachea midline Chest-clear to auscultation. No rales, wheezing or rhonchi Cardiac-regular rate and rhythm, normal S1 and S2 Abdomen-normal bowel sounds, no hepatosplenomegaly Extremities-no cyanosis, clubbing, or edema Neuro-cranial nerves II through XII intact, motor and sensory function within normal limits, strength symmetrical, no focal deficits Psych-normal affect, normal mood Results & Data Results & Data Vital Signs (Past 12 Hours) Vital Signs Temp Pulse Pulse Resp BP BP BP 04/14/24 10:03 69 131/73 04/14/24 09:57 36.4 C L 73 04/14/24 09:43 04/14/24 07:30 75 04/14/24 07:21 36.4 C L 71 17 127/73 04/14/24 03:42 36.4 C L 78 20 126/69 04/14/24 00:05 36.4 C L 85 17 106/61 Pulse Ox O2 Del Method 04/14/24 10:03 04/14/24 09:57 04/14/24 09:43 Room Air 04/14/24 07:30 04/14/24 07:21 97 Room Air 04/14/24 03:42 93 Room Air 04/14/24 00:05 96 Room Air PG Care Time/CCT Total # of Minutes Spent Total Time Spent with Patient: Total time spent is greater than 50% in coordination of care (as documented) at patient's floor/unit and/or counseling patient: Coding Level of Care Code 74118 SUB INP/OBS CARE MIN Diagnoses Complications, dialysis, catheter, mechanical T82.49XA Encounter type: initial encounter Hyperkalemia E87.5 Anemia D64.9 End stage renal disease N18.6 Hypertension I10 GERD (gastroesophageal reflux disease) K21.9 DM type 2 (diabetes mellitus, type 2) E11.9 Obesity (BMI 30-39.9) E66.9 (1) Complications, dialysis, catheter, mechanical Encounter type: initial encounter Qualified Code(s): T82.49XA - Other complication of vascular dialysis catheter, initial encounter
[2024-04-14] MEDS: EPOETIN ALFA 10,000 UNITS/ML VIAL IV ONE (11:05)
--- NOTE | 2024-04-14 11:25 | Consultation ---
Date of Consultation April 14, 2024 Assessment & Plan (1) Hemodialysis catheter malfunction: Pt with poorly functioning permcath, will need permcath exchange tomorrow in OR. Pt agreeable. She has cancelled LUE basilic AVF creation multiple times over past 6 months d/t not wanting to undergo a second stage surgery. Unfortunately, her vein mapping at the time did not demonstrate any usable cephalic veins for AVF creation. Discussed option of basilic AVF creation with subsequent transposition surgery vs prosthetic AV graft placement. She wishes to proceed with AV graft placement since it only requires a single surgery and is usable in only 2 weeks. Will have office call residence to schedule this as outpt in a few weeks. History of Present Illness Reason for Consultation: malfuncitoning permcath Attending Physician: Oli Cormier DO History of Present Illness 73 yo f with hx of ESRD on HD, anemia, HTN, DMII, neuropathy, GERD, hyperlipidemia, hypithyroidism, anxeity, lumbar radiculopathy, asthma, CVA, admitted with malfunctioning permcath and hyperkalemia, seen in consultation today for permcath exchange. Pt does not know when her catheter started malfunctioning. Has been running with a R femoral temporary HD line for past 5 days. Pt was perviously seen in office and scheduled for LUE basilic AVF cre ation, however, she cancelled bc she does not want to undergo a second surgery(transposition). Pt denies MANNING, fever, chest pain, SOB, abd pain, N/V, rest pain, claudication, other complaints. Allergies Allergy/AdvReac Type Severity Reaction Status Date / Time meperidine Allergy Intermediate hypotension-passed Verified 04/09/24 20:06 out Home Medications Medication Instructions Recorded Confirmed Type bumetanide 2 mg tablet 4 mg PO BID 04/20/22 04/09/24 History cholecalciferol (vitamin D3) 125 125 mcg PO QPM 04/20/22 04/09/24 History mcg (5,000 unit) tablet (Vitamin D3) atorvastatin 40 mg tablet 40 mg PO HS 07/23/22 04/09/24 History docusate sodium 100 mg capsule 100 mg PO BID 07/23/22 04/09/24 History insulin aspar prot-insulin aspart 40 unit subcut QPM 07/23/22 04/09/24 History 100 unit/mL (70-30) subcutaneous pen (Novolog Mix 70-30FlexPen U-100) insulin aspar prot-insulin aspart 40 unit subcut UD 07/23/22 04/09/24 History 100 unit/mL (70-30) subcutaneous pen (Novolog Mix 70-30FlexPen U-100) isosorbide mononitrate 30 mg 30 mg PO QPM 07/23/22 04/09/24 History tablet,extended release 24 hr levothyroxine 50 mcg tablet 50 mcg PO DAILY 07/23/22 04/09/24 History melatonin 10 mg tablet 10 mg PO HS Sleep 07/23/22 04/09/24 History metoprolol succinate 50 mg 50 mg PO QPM 07/23/22 04/09/24 History tablet,extended release 24 hr tramadol 50 mg tablet 50 mg PO Q4 PRN Pain 5-10 07/23/22 04/09/24 History aspirin 81 mg tablet,delayed 81 mg PO HS 05/18/23 04/09/24 History release duloxetine 20 mg capsule,delayed 20 mg PO QPM 05/18/23 04/09/24 History release oxybutynin chloride 5 mg tablet 2.5 mg PO QPM 05/18/23 04/09/24 History ropinirole 0.25 mg tablet 0.25 mg PO HS 05/18/23 04/09/24 History acetaminophen 325 mg tablet 650 mg PO Q6 PRN TEMP > 100 04/09/24 04/09/24 History acetaminophen 325 mg tablet 650 mg PO Q6 PRN Pain (Scale Score 04/09/24 04/09/24 History (Tylenol) 1-4) amlodipine 5 mg tablet 10 mg PO QPM 04/09/24 04/09/24 History calcium acetate 667 mg tablet 1,334 mg PO WM 04/09/24 04/09/24 History calcium acetate 667 mg tablet 667 mg PO . NEEDED PRN WITH 04/09/24 04/09/24 History SNACKS clopidogrel 75 mg tablet 75 mg PO QPM 04/09/24 04/09/24 History ferric citrate 210 mg iron tablet 210 mg PO WM 04/09/24 04/09/24 History (Auryxia) gabapentin 100 mg capsule 100 mg PO 3XWK 04/09/24 04/09/24 History gabapentin 600 mg tablet 600 mg PO QPM 04/09/24 04/09/24 History mirtazapine 7.5 mg tablet 7.5 mg PO HS 04/09/24 04/09/24 History ondansetron 4 mg disintegrating 4 mg PO Q6H PRN Nausea And Vomiting 04/09/24 04/09/24 History tablet pantoprazole 40 mg tablet,delayed 40 mg PO HS 04/09/24 04/09/24 History release polyethylene glycol 3350 17 17 g PO UD 04/09/24 04/09/24 History gram/dose oral powder (Miralax) polyethylene glycol 3350 17 17 g PO UD 04/09/24 04/09/24 History gram/dose oral powder (Miralax) sennosides 8.6 mg-docusate sodium 1 tab-cap PO UD 04/09/24 04/09/24 History 50 mg tablet (Senokot-S) sennosides 8.6 mg-docusate sodium 1 tab-cap PO UD 04/09/24 04/09/24 History 50 mg tablet (Senokot-S) Patient History Medical History ESRD (end stage renal disease) on dialysis hemodialysis done on site at [facility] w/ [facility] Ambulatory dysfunction Dyspnea on exertion Exertional chest pain Surgical History 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 Family History Other Cancer Social History Smoking Status: Never smoker Hx Alcohol Use: No Hx Substance Use: No Preferred Language: Albanian Communication Ability: Effective Multi Care Technician Required: No Beliefs That Will Affect Care: None marital status: / Current Living Situation: Long Term Current Living Situation Comment: lives [facility] Other Information That Helps Us Care for You: No Feels Safe at Home: Yes Safety Concerns: Feels Safe At This Time Assistive Devices: Wheelchair Review of Systems Review of Systems: All systems reviewed & are unremarkable except as noted in HPI & below Physical Exam Constitutional: WD/WN, vitals as above not in distress Neck: trachea midline Respiratory: normal respiratory effort Auscultation: lungs clear to auscultation bilaterally and + diminished lung sounds Cardiovascular: Rate/Rhythm: regular rate and regular rhythm Vessels: posterior tibial pulses present, dorsalis pedis pulses present and radial pulses present; + abnormal peripheral pulses Extremities: normal capillary refill and + edema (trace) Gastrointestinal (Abdomen): Inspection/Auscultation: abdomen normal to inspection and normal bowel sounds Percussion/Palpation: abdomen soft; abdomen nontender Musculoskeletal: no cyanosis or clubbing, extremities motor strength 5/5 Skin: no rashes, warm and dry Neurologic: moves all extremities and awake; no focal motor deficits and not confused Psychiatric: A+Ox3, euthymic affect Results & Data Vital Signs (Past 12 Hours) Vital Signs Temp Pulse Pulse Resp BP BP BP 04/14/24 11:00 72 121/75 04/14/24 10:30 70 124/73 04/14/24 10:03 69 131/73 04/14/24 09:57 36.4 C L 73 04/14/24 09:43 04/14/24 07:30 75 04/14/24 07:21 36.4 C L 71 17 127/73 04/14/24 03:42 36.4 C L 78 20 126/69 04/14/24 00:05 36.4 C L 85 17 106/61 Pulse Ox O2 Del Method 04/14/24 11:00 04/14/24 10:30 04/14/24 10:03 04/14/24 09:57 04/14/24 09:43 Room Air 04/14/24 07:30 04/14/24 07:21 97 Room Air 04/14/24 03:42 93 Room Air 04/14/24 00:05 96 Room Air
--- NOTE | 2024-04-14 11:49 | Dialysis Progress Note ---
Date of Service April 14, 2024 Assessment & Plan Admission and Anticipated Discharge Date Admission Date: April 09, 2024 Subjective Assessment & Plan (1) Hemodialysis catheter malfunction: Plan: OP tunneled dialysis catheter runs only at Qb 250 and some small air bubbles noted in line > not enough to trip alarms but concern for crack/potential bleed or infection if worsens or/and catheter unchanged, though no gross defects or signs/sx of infection found. she is on plavix, last dose 10/10. appreciate gen surgery evaluation >> per them she can't have exchange before early next week, likely Sunday, w/ this med on hold. temp cath runs well getting tunneled HD cath tomorrow. resume plavix prior to d/c or after per surgery recs No e/o fluid overload. labs today reviewed. Bicarb and k and na is fine. hgb about goal at 9.8. getting [facility]ILLIE with Dialysis (2) Hyperkalemia: Plan: managed medically and w/ HD >> from poor dialysis catheter function. daily bmp on weekend cont renal diet. Now normal. (3) End stage renal disease: Plan: ESRD on HD; had 2 treatments this week both limited by catheter poor performance; s/p full tx on 04/11 w/ good catheter function 1.5L FR ordered continue OP phosLo 2AC/ snack anticipate next HD tx for Sunday stopping bumex b/c she has minimal UOP > do not d/c on this Subjective Seen during dialysis. Current femoral line works fine. Denies sob, uncontrolled or new musculoskeletal pain; no n/v. So far tolerating dialysis well. BP is fine Review of Systems Review of Systems: All systems reviewed & are unremarkable except as noted in Subjective Physical Exam Constitutional: well developed and well nourished; no acute distress Eyes: EOM intact bilaterally ENMT: Ears: no external ear abnormality Nose: no external nose abnormality Mouth: + dry oral mucous membranes Neck: no nuchal rigidity Respiratory: normal respiratory effort Auscultation: + diminished lung sounds Cardiovascular: RRR, no murmur, no edema Gastrointestinal (Abdomen): Inspection/Auscultation: normal bowel sounds Percussion/Palpation: abdomen soft; abdomen nontender Musculoskeletal: Extremities: strength 5/5 throughout Skin: no rashes, warm and dry Psychiatric: Orientation: alert and oriented x 3 Insight: + limited insight Results & Data Vital Signs (Past 12 Hours) Vital Signs Temp Pulse Pulse Resp BP BP BP 04/14/24 11:00 72 121/75 04/14/24 10:30 70 124/73 04/14/24 10:03 69 131/73 04/14/24 09:57 36.4 C L 73 04/14/24 09:43 04/14/24 07:30 75 04/14/24 07:21 36.4 C L 71 17 127/73 04/14/24 03:42 36.4 C L 78 20 126/69 04/14/24 00:05 36.4 C L 85 17 106/61 Pulse Ox O2 Del Method 04/14/24 11:00 04/14/24 10:30 04/14/24 10:03 04/14/24 09:57 04/14/24 09:43 Room Air 04/14/24 07:30 04/14/24 07:21 97 Room Air 04/14/24 03:42 93 Room Air 04/14/24 00:05 96 Room Air
[2024-04-15 07:11] LABS: BUN Creatinine Ratio 9.6 (10-20); Calcium 8.4 mg/dl (8.6-10.3); Creatinine Clr Calc Pharmacy 11.6 ml/min; Est GFR (African American) 10.1 ml/min; Est GFR (Non-African American) 8.7 ml/min; Potassium 4.5 mmol/L (3.5-5.1)
--- NOTE | 2024-04-15 09:22 | History & Physical Bridge Note ---
Date of Service April 15, 2024 History & Physical Bridge Note Patient for exchange of her permcath today. I have discussed the risks options and benefits of the procedure with the patient. The patient understands the risks options and benefits and agrees to the procedure. I have examined the patient, reviewed the History & Physical and in the interval since the performance of the History & Physical I have noted the following changes of clinical significance: no changes noted
[2024-04-15] MEDS: SODIUM CHLORIDE 0.9% 1,000 ML IV SCH (09:47)
[2024-04-15] MEDS: ceFAZolin 2000MG 2,000 MG/15 ML SYR IV ONE (10:45)
--- NOTE | 2024-04-15 10:57 | Pre Anesthesia Assessment ---
Date of Service April 15, 2024 Pre Sedation Assessment Vital Signs Temp Pulse Pulse Pulse Pulse Resp BP 04/15/24 09:40 36.4 C L 84 16 04/15/24 08:13 36.7 C 84 19 04/15/24 07:55 86 04/15/24 03:20 36.7 C 97 H 20 04/14/24 22:44 36.7 C 97 H 17 04/14/24 21:59 98 H 04/14/24 19:28 36.7 C 90 17 04/14/24 15:43 36.7 C 82 18 04/14/24 13:53 36.6 C 74 18 04/14/24 13:45 36.3 C L 71 04/14/24 13:30 71 112/60 04/14/24 13:00 75 115/65 04/14/24 12:30 74 108/58 L 04/14/24 12:00 71 118/64 04/14/24 11:30 74 112/70 04/14/24 11:00 72 121/75 BP Pulse Ox O2 Del Method 04/15/24 09:40 142/85 H 94 Room Air 04/15/24 08:13 145/71 H 98 Room Air 04/15/24 07:55 04/15/24 03:20 137/72 96 Room Air 04/14/24 22:44 130/65 96 Room Air 04/14/24 21:59 04/14/24 19:28 127/65 96 Room Air 04/14/24 15:43 134/74 94 Room Air 04/14/24 13:53 127/68 95 Room Air 04/14/24 13:45 138/71 04/14/24 13:30 04/14/24 13:00 04/14/24 12:30 04/14/24 12:00 04/14/24 11:30 04/14/24 11:00 Cardiovascular RRR, no murmur, no edema Respiratory normal respiratory effort, lungs clear to auscultation Pre-Sedation Airway Assessment Smoking Status: Never smoker Hx Sleep Apnea: No Short, Thick Neck: No Thyromental Distance: > or= 3.5 Finger Breadths Oral Cavity: + WNL Mallampati Class: II ASA: ASA3 NPO Status Date of Last Intake of Fluids: 04/15/24 Time of Last Intake of Fluids: 06:00 Date of Last Intake of Solid Food: 04/14/24 Time of Last Intake of Solid Foods: 19:30 Procedure Planning Contraindications for Sedation: none Current Medications Reviewed: Yes Notes The planned sedation has been discussed with the patient. Informed Consent was obtained. I have identified the patient, determined the appropriateness of sedation and have assessed the patient immediately prior to the procedure. All medicine(s) and interventions are by my order.
[2024-04-15] MEDS: LIDOCAINE 1% LOCAL 20 ML VIAL ONE (11:14)
--- NOTE | 2024-04-15 11:26 | Operative Report ---
Post Operative Report Pre & Post Diagnosis Operation Date: 04/15/24 10:30 Pre-Op Diagnosis: Malfunctioning Perm Catheter Post-Op Diagnosis: Malfunctioning Perm Catheter I identified the patient and participated in the time-out.: Yes Procedure Operation Date: 04/15/24 10:30 Actual Procedures p Exchange of Perm Catheter, Fluroscopy for positioning (Left) - Andi Womack MD Surgeon Andi Womack MD Duster Tender none Estimated Blood Loss 5 Findings Consistent with Post-Op Diagnosis Specimens none Anesthesia Type General Complications none Disposition Accompanied Patient To Recovery: No Disposition: Recovery Room Indications Is a 73-year-old female with a left internal jugular vein PermCath in place. It is malfunctioning. Exchange was recommended. I have discussed the risks options and benefits of the procedure with the patient. The patient understands the risks options and benefits and agrees to the procedure. Description of Procedure Patient was takent to the angio suite and placed in the supine position. The left side of the neck, catheter and chest wall were prepped and draped in a sterile manner. The patient was identified and a timeout performed. Local anesthesia was then administered to the appropriate areas. A guidewire was then passed centrally under fluoroscopic imaging through the old permcath. The old permcath was removed after freeing up the dacron cuff of the permcath using blunt and sharp dissection. A new 23 cm permcath was inserted without difficulty. The catheter was sutured in placed. Both ports aspirated and flushed easily and were then packed with heparin. A sterile dressing was applied to the catheter. The patient left the operation room in satisfactory condition and tolerated the procedure well. All needle and sponge counts were correct at the end of the procedure. I attest to the content of the Intraoperative Record and any orders documented therein. Any exceptions are noted below.
[2024-04-15] MEDS: fentaNYL citrate PF 100 MCG/2 ML VIAL ONE (11:57)
[2024-04-15] MEDS: MIDAZOLAM HCL 1 MG/ML 2ML VIAL ONE (11:57)
[2024-04-15] MEDS: HEPARIN SOD (PORCINE) 5,000 UNITS/ML VIAL ONE ×2 (11:57)
--- NOTE | 2024-04-15 12:55 | Hospitalist Progress Note ---
Date of Service April 15, 2024 Assessment & Plan (1) Complications, dialysis, catheter, mechanical: Plan: -A right femoral vein temporary dialysis catheter has been placed and started back on hemodialysis on April 11. -Appreciate nephrology consultation and recommendations. -Daily labs ordered -Lokelma has been discontinued as potassium is now in a normal range. Will continue to monitor closely with serial labs. -Vascular surgery consulted: Planning for Vascular access placement this AM 04/15/24- discussed with vascular surgical team -NPO pending procedure -Scheduled for HD tomorrow to ensure access functionality (2) Hyperkalemia: Plan: -Now improved -Previously treated with patiromer then Lokelma. Now back on hemodialysis. -Continue to monitor Lytes closely (3) Anemia: Plan: -Chronic. No overt bleeding. -Possibly EPO with HD- will follow nephrology recommendations (4) End stage renal disease: Plan: -Hyperkalemia on admission is due to end-stage renal disease. -Hemodialysis has been restarted. -Serial labs ordered-continue close monitoring. (5) Hypertension: Plan: -Continue current medical management (6) GERD (gastroesophageal reflux disease): Plan: -Stable. Continue current medical management (7) DM type 2 (diabetes mellitus, type 2): Plan: -Currently controlled. -ADA diet. -Sliding scale coverage. (8) Obesity (BMI 30-39.9): Plan: -Lifestyle modifications consulted Plan -For vascular access replacement today, HD tomorrow and likely DC Admission and Anticipated Discharge Date Admission Date: April 09, 2024 Subjective Patient seen and evaluated bedside Patient is currently in NAD For Vascular access placement this AM Patient denies chest pain, palpitations, SOB, fevers, or chills. Review of Systems Review of Systems: Constitutionalno fever or chills ENTno blurred vision, no double vision, no epistaxis, no sore throat Respiratoryno cough, no wheezing, no shortness of breath Cardiacno palpitations, no chest pain, no syncope Liz nausea, vomiting, diarrhea, melena, hematochezia GUno urinary retention, no urinary incontinence, no dysuria, no hematuria Musculoskeletalno joint pain, no muscle tenderness Skinno bruising, no rashes, no pruritus Neurono isolated weakness, no paresthesia, no weakness Psychno depression, no anxiety Physical Exam Physical Exam: General-alert and oriented x3, no fever, no chills HEENT-head atraumatic and normocephalic, extraocular muscles intact Neck-no lymphadenopathy or thyromegaly, trachea midline Chest-clear to auscultation. No rales, wheezing or rhonchi Cardiac-regular rate and rhythm, normal S1 and S2 Abdomen-normal bowel sounds, no hepatosplenomegaly Extremities-no cyanosis, clubbing, or edema Neuro-cranial nerves II through XII intact, motor and sensory function within normal limits, strength symmetrical, no focal deficits Psych-normal affect, normal mood Results & Data Results & Data Vital Signs (Past 12 Hours) Vital Signs Temp Pulse Pulse Pulse Resp BP Pulse Ox 04/15/24 11:51 36.7 C 80 16 141/75 H 97 04/15/24 11:33 82 18 156/78 H 99 04/15/24 11:26 83 16 155/79 H 99 04/15/24 11:21 84 14 140/82 100 04/15/24 11:16 83 16 147/82 H 100 04/15/24 11:11 81 12 152/80 H 95 04/15/24 11:02 04/15/24 09:40 36.4 C L 84 16 142/85 H 94 04/15/24 08:13 36.7 C 84 19 145/71 H 98 04/15/24 07:55 86 04/15/24 03:20 36.7 C 97 H 20 137/72 96 O2 Del Method O2 Flow Rate 04/15/24 11:51 Room Air 04/15/24 11:33 Room Air 04/15/24 11:26 Room Air 04/15/24 11:21 Room Air 04/15/24 11:16 Oxymask 3 04/15/24 11:11 Room Air 04/15/24 11:02 Room Air 04/15/24 09:40 Room Air 04/15/24 08:13 Room Air 04/15/24 07:55 04/15/24 03:20 Room Air PG Care Time/CCT Total # of Minutes Spent Total Time Spent with Patient: Total time spent is greater than 50% in coordination of care (as documented) at patient's floor/unit and/or counseling patient: Coding Level of Care Code 60250 SUB INP/OBS CARE 2/35MIN Diagnoses Complications, dialysis, catheter, mechanical T82.49XA Encounter type: initial encounter Hyperkalemia E87.5 Anemia D64.9 End stage renal disease N18.6 Hypertension I10 GERD (gastroesophageal reflux disease) K21.9 DM type 2 (diabetes mellitus, type 2) E11.9 Obesity (BMI 30-39.9) E66.9 (1) Complications, dialysis, catheter, mechanical Encounter type: initial encounter Qualified Code(s): T82.49XA - Other complication of vascular dialysis catheter, initial encounter
[2024-04-16 06:46] LABS: Basophils % (auto) 0.9 %; Eosinophils % (auto) 2.8 %; Hematocrit (blood only) 26.1 % (37.0-47.0); Hemoglobin 8.9 g/dl (12.0-16.0); Immature Granulocytes % (auto) 0.9 %; Lymphocytes # (auto) 1.41 K/uL (1.20-3.40); Lymphocytes % (auto) 12.9 %; Mean Corpuscular Hemoglobin 31.7 pg (25.0-34.0); Mean Corpuscular Hgb Conc 34.1 g/dL (32.0-36.0); Mean Corpuscular Volume 92.9 fL (80.0-100.0); Mean Platelet Volume 10.5 fL (9.4-12.4); Monocytes # (auto) 0.61 K/uL (0.11-0.59); Monocytes % (auto) 5.6 %; Neutrophils # (auto) 8.37 K/uL (1.40-6.50); Neutrophils % (auto) 76.9 %; Platelet Count 192 K/uL (130-400); RDW Coefficient of Variation 13.3 % (11.5-14.5); RDW Standard Deviation 45.4 fL (36.4-46.3); Red Blood Count 2.81 M/uL (4.20-5.40); White Blood Count 10.89 K/ul (4.8-10.8)
[2024-04-16] MEDS ORDERED: SODIUM CHLORIDE 0.9% 1,000 ML IV PRN (07:00)
[2024-04-16 07:37] LABS: BUN Creatinine Ratio 10.4 (10-20); Calcium 8.1 mg/dl (8.6-10.3); Creatinine Clr Calc Pharmacy 9.3 ml/min; Est GFR (African American) 7.7 ml/min; Est GFR (Non-African American) 6.7 ml/min; Potassium 4.6 mmol/L (3.5-5.1)
--- NOTE | 2024-04-16 10:42 | Dialysis Progress Note ---
Date of Service April 16, 2024 Assessment & Plan Admission and Anticipated Discharge Date Admission Date: April 09, 2024 Subjective Assessment & Plan (1) Hemodialysis catheter malfunction: Plan: OP tunneled dialysis catheter runs only at Qb 250 and some small air bubbles noted in line > not enough to trip alarms but concern for crack/potential bleed or infection if worsens or/and catheter unchanged, though no gross defects or signs/sx of infection found. she is on plavix, last dose 10/10. appreciate gen surgery evaluation >> per them she can't have exchange before early next week, likely Sunday, w/ this med on hold. She had new tunneled HD cath and it is working beautifully. remove temp HD cath and she can be Discharged from renal standpoint. (2) Hyperkalemia: Plan: managed medically and w/ HD >> from poor dialysis catheter function. daily bmp on weekend cont renal diet. Now normal. (3) End stage renal disease: Plan: ESRD on HD; had 2 treatments this week both limited by catheter poor performance; s/p full tx on 04/11 w/ good catheter function 1.5L FR ordered continue OP phosLo 2AC/1 snack No e/o fluid overload. labs today reviewed. Bicarb and k and na is normal range has anemia of ESRD---hgb low at 8.9 getting [facility]IE with Dialysis--will give epogen 33988 unit. continue with Outpt dialysis. also no need for Bumex at discharge. does not need Nephro clinic f/u. patient is on Dialysis Subjective Seen during dialysis. new perm HD cath works fine. Denies sob, uncontrolled or new musculoskeletal pain; no n/v. So far tolerating dialysis well. BP is fine Review of Systems Review of Systems: All systems reviewed & are unremarkable except as noted in Subjective Physical Exam Constitutional: well developed and well nourished; no acute distress Eyes: EOM intact bilaterally ENMT: Ears: no external ear abnormality Nose: no external nose abnormality Mouth: + dry oral mucous membranes Neck: no nuchal rigidity Respiratory: normal respiratory effort Auscultation: + diminished lung sounds Cardiovascular: RRR, no murmur, no edema Gastrointestinal (Abdomen): Inspection/Auscultation: normal bowel sounds Percussion/Palpation: abdomen soft; abdomen nontender Musculoskeletal: Extremities: strength 5/5 throughout Skin: no rashes, warm and dry Psychiatric: Orientation: alert and oriented x 3 Insight: + limited insight Results & Data Vital Signs (Past 12 Hours) Vital Signs Temp Pulse Pulse Pulse Resp BP BP 04/16/24 10:18 04/16/24 10:00 79 117/72 04/16/24 09:30 74 125/71 04/16/24 09:00 76 131/74 04/16/24 08:55 36.5 C 78 04/16/24 07:21 36.5 C 81 20 126/71 04/16/24 07:00 84 04/16/24 02:57 36.7 C 92 H 22 114/65 04/16/24 00:42 36.9 C 103 H 18 138/80 04/16/24 00:34 101 H Pulse Ox O2 Del Method 04/16/24 10:18 Room Air 04/16/24 10:00 04/16/24 09:30 04/16/24 09:00 04/16/24 08:55 04/16/24 07:21 95 Room Air 04/16/24 07:00 04/16/24 02:57 95 Room Air 04/16/24 00:42 95 Room Air 04/16/24 00:34
--- NOTE | 2024-04-16 11:03 | Hospitalist Progress Note ---
Date of Service April 16, 2024 Assessment & Plan (1) Complications, dialysis, catheter, mechanical: Plan: -A right femoral vein temporary dialysis catheter has been placed and started back on hemodialysis on April 11. Plan for removal of this catheter today if HD through new catheter is successful. -Appreciate nephrology consultation and recommendations. -Lokelma has been discontinued as potassium is now in a normal range. Will continue to monitor closely with serial labs. -Vascular surgery consulted: s/p Vascular access placement on 04/15/24 -Scheduled for HD today- will see new catheter function, plan to remove temporary catheter if well functioning. (2) Hyperkalemia: Plan: -Now improved -Previously treated with patiromer then Lokelma. Now back on hemodialysis. -Continue to monitor Lytes closely (3) Anemia: Plan: -Chronic. No overt bleeding. -EPO with HD- follow nephrology recommendations (4) End stage renal disease: Plan: -Hyperkalemia on admission is due to end-stage renal disease. -Hemodialysis has been restarted. -Serial labs ordered-much improved -Continue to monitor (5) Hypertension: Plan: -Continue current medical management (6) GERD (gastroesophageal reflux disease): Plan: -Stable. Continue current medical management (7) DM type 2 (diabetes mellitus, type 2): Plan: -Currently controlled. -ADA diet. -Sliding scale coverage. (8) Obesity (BMI 30-39.9): Plan: -Lifestyle modifications consulted Plan -Planning with CM likely for Dc back to facility in the AM if HD cath functional today. Admission and Anticipated Discharge Date Admission Date: April 09, 2024 Subjective Patient seen and evaluated bedside Had new HD cath placed on 04/15/24 For HD today- plan to remove temporary HD cath if new cath well functioning Denies acute complaints at present Denies chest pain, palpitations, SOB fevers, chills nausea or vomiting Review of Systems Review of Systems: Constitutionalno fever or chills ENTno blurred vision, no double vision, no epistaxis, no sore throat Respiratoryno cough, no wheezing, no shortness of breath Cardiacno palpitations, no chest pain, no syncope Liz nausea, vomiting, diarrhea, melena, hematochezia GUno urinary retention, no urinary incontinence, no dysuria, no hematuria Musculoskeletalno joint pain, no muscle tenderness Skinno bruising, no rashes, no pruritus Neurono isolated weakness, no paresthesia, no weakness Psychno depression, no anxiety Physical Exam Physical Exam: General-alert and oriented x3, no fever, no chills HEENT-head atraumatic and normocephalic, extraocular muscles intact Neck-no lymphadenopathy or thyromegaly, trachea midline Chest-clear to auscultation. No rales, wheezing or rhonchi Cardiac-regular rate and rhythm, normal S1 and S2 Abdomen-normal bowel sounds, no hepatosplenomegaly Extremities-no cyanosis, clubbing, or edema Neuro-cranial nerves II through XII intact, motor and sensory function within normal limits, strength symmetrical, no focal deficits Psych-normal affect, normal mood Results & Data Results & Data Vital Signs (Past 12 Hours) Vital Signs Temp Pulse Pulse Pulse Resp BP BP 04/16/24 10:18 04/16/24 10:00 79 117/72 04/16/24 09:30 74 125/71 04/16/24 09:00 76 131/74 04/16/24 08:55 36.5 C 78 04/16/24 07:21 36.5 C 81 20 126/71 04/16/24 07:00 84 04/16/24 02:57 36.7 C 92 H 22 114/65 04/16/24 00:42 36.9 C 103 H 18 138/80 04/16/24 00:34 101 H Pulse Ox O2 Del Method 04/16/24 10:18 Room Air 04/16/24 10:00 04/16/24 09:30 04/16/24 09:00 04/16/24 08:55 04/16/24 07:21 95 Room Air 04/16/24 07:00 04/16/24 02:57 95 Room Air 04/16/24 00:42 95 Room Air 04/16/24 00:34 PG Care Time/CCT Total # of Minutes Spent Total Time Spent with Patient: Total time spent is greater than 50% in coordination of care (as documented) at patient's floor/unit and/or counseling patient: Coding Level of Care Code 70528 SUB INP/OBS CARE 2/35MIN Diagnoses Complications, dialysis, catheter, mechanical T82.49XA Encounter type: initial encounter Hyperkalemia E87.5 Anemia D64.9 End stage renal disease N18.6 Hypertension I10 GERD (gastroesophageal reflux disease) K21.9 DM type 2 (diabetes mellitus, type 2) E11.9 Obesity (BMI 30-39.9) E66.9 (1) Complications, dialysis, catheter, mechanical Encounter type: initial encounter Qualified Code(s): T82.49XA - Other complication of vascular dialysis catheter, initial encounter
[2024-04-16] MEDS: EPOETIN ALFA 10,000 UNITS/ML VIAL IV ONE (11:46)
[2024-04-17 07:38] LABS: BUN Creatinine Ratio 9.2 (10-20); Calcium 8.4 mg/dl (8.6-10.3); Creatinine Clr Calc Pharmacy 13.7 ml/min; Est GFR (African American) 12.5 ml/min; Est GFR (Non-African American) 10.8 ml/min; Potassium 4.3 mmol/L (3.5-5.1)
[2024-04-17 08:00] VITALS: TEMP 97.9
--- NOTE | 2024-04-17 09:29 | Discharge Summary ---
Discharge Summary Date of Service April 17, 2024 Principal Dx & Hospital Course #1 = Principal Diagnosis (1) Complications, dialysis, catheter, mechanical: -A right femoral vein temporary dialysis catheter was placed and started back on hemodialysis on April 11. Sh ehad her perm cath on left exchanged and did well with this -Appreciate nephrology consultation and recommendations. She can stop her Bumex on discharge as per Nephro and resume usual schedule of HD Hyperkalemia resolved (2) Hyperkalemia: -Nowresolved -Previously treated with patiromer then Lokelma. Now back on hemodialysis. (3) Anemia: -Chronic. No overt bleeding. -EPO with HD- follow nephrology recommendations (4) End stage renal disease: -Hyperkalemia on admission is due to end-stage renal disease. -Hemodialysis has been restarted. -Serial labs ordered-much improved (5) Hypertension: -Continue current medical management with amlodipine, isosorbide, metoprolol stopped bumex (6) GERD (gastroesophageal reflux disease): -Stable. Continue current medical management (7) DM type 2 (diabetes mellitus, type 2): -Currently controlled. -ADA diet. -Sliding scale coverage was provided and she can resume her usual insulin on discharge (8) Obesity (BMI 30-39.9): -Lifestyle modifications consulted Plan Dispo-dc to [facility] Notes For Next Care Provider None Medication Changes From Visit Stopped Bumex Admission HPI Per Admitting Provider The patient is a 73-year-old female with a past medical history including ESRD on HD, history of CVA, history of left femur fracture, history of peritonitis, hypertension, diabetic neuropathy, GERD, diabetes mellitus type 2,, asthma, L DDD, and history of skin cancer. 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 The patient otherwise has no complaints. Discharge Exam Constitutional WD/WN, vitals as above Respiratory normal respiratory effort, lungs clear to auscultation Cardiovascular RRR, no murmur, no edema Chest (Breasts) Chest: + vascular access device or port (left ant chest wall,no erythema or bleeding) Gastrointestinal (Abdomen) normal bowel sounds, soft, nontender, no hepatosplenomegaly Discharge Plan Discharge Items Patient Disposition: Transfer [facility] Reason For Visit: HYPERKALEMIA, ESRD ON HD, MALFUNCTIONING PORT Discharge Diagnosis: Malfunctioning hemodialysis catheter, hyperkalemia Condition on Discharge: Good Activity: Resume your previous activity Non-emergency contact: Primary Care Provider and Production Hardener Call non-emergency contact if: you have any medication questions and your symptoms worsen Follow-up/Referrals: [facility] [Primary Care Provider] - Diet: Dialysis Renal Addtl Attending Provider Instructions: You were admitted with malfunctioning of your dialysis catheter and had this replaced. Your Bumex water pill was stopped by Nephrology. You can resume your usual dialysis schedule after discharge. Pending Studies at Discharge: No Stand-Alone Forms: My [facility] Skilled Items Patient informed of condition?: Yes DNR: No Discharge Level of Care: Skilled Communicable Disease: No Discharge Prognosis: Improving Lines: None Urinary Catheter: No Medications and DC Order Prescriptions: Continued ropinirole 0.25 mg tablet 0.25 mg PO HS oxybutynin chloride 5 mg tablet 2.5 mg PO QPM aspirin 81 mg Tablet,Delayed Release (Dr/Ec) 81 mg PO HS Rx Instructions: medication now DC duloxetine 20 mg capsule,delayed release(DR/EC) 20 mg PO QPM cholecalciferol (vitamin D3) [Vitamin D3] 125 mcg (5,000 unit) Tablet 125 mcg PO QPM metoprolol succinate 50 mg tablet extended release 24 hr 50 mg PO QPM insulin asp prt-insulin aspart [Novolog Mix 70-30FlexPen U-100] 100 unit/mL (70-30) insulin pen 40 unit SUBCUT QPM insulin asp prt-insulin aspart [Novolog Mix 70-30FlexPen U-100] 100 unit/mL (70-30) insulin pen 40 unit SUBCUT UD Rx Instructions: GIVE IN MORNING EVERY //SAT/SUN 8AM GIVE AT 6 AM ON SUN/SUN/SUN atorvastatin 40 mg tablet 40 mg PO HS isosorbide mononitrate 30 mg tablet extended release 24 hr 30 mg PO QPM levothyroxine 50 mcg tablet 50 mcg PO DAILY docusate sodium 100 mg Capsule 100 mg PO BID melatonin 10 mg Tablet 10 mg PO HS amlodipine 5 mg tablet 10 mg PO QPM gabapentin 100 mg capsule 100 mg PO 3XWK Rx Instructions: take in afternoon of SUNDAY,SUNDAY,SUNDAY'S gabapentin 600 mg tablet 600 mg PO QPM pantoprazole 40 mg tablet,delayed release (DR/EC) 40 mg PO HS clopidogrel 75 mg tablet 75 mg PO QPM calcium acetate 667 mg Tablet 1,334 mg PO WM Rx Instructions: 2 tablets with meals SUNDAY,SUNDAY,FRIDAYS @ 6AM,1130AM,430PM SUNDAY,SUNDAY,SUNDAY AND SUNDAYS @ 730AM,1130AM,430PM Auryxia 210 mg iron Tablet 210 mg PO WM calcium acetate 667 mg Tablet 667 mg PO . NEEDED PRN (Reason: WITH SNACKS) polyethylene glycol 3350 [Miralax] 17 gram/dose Powder 17 g PO UD Rx Instructions: GIVE 2 TIMES A DAY ON SUN/SUN/SUN polyethylene glycol 3350 [Miralax] 17 gram/dose Powder 17 g PO UD Rx Instructions: GIVE EVERY MORNING & BEDTIME EVERY //SUN/SUN mirtazapine 7.5 mg tablet 7.5 mg PO HS ondansetron 4 mg Tablet,Disintegrating 4 mg PO Q6H PRN (Reason: Nausea And Vomiting) acetaminophen [Tylenol] 325 mg Tablet 650 mg PO Q6 PRN (Reason: Pain (Scale Score 1-4)) acetaminophen 325 mg Tablet 650 mg PO Q6 PRN (Reason: TEMP > 100) sennosides-docusate sodium [Senokot-S] 8.6-50 mg Tablet 1 tab-cap PO UD Rx Instructions: GIVE EVERY MORNING AND BEDTIME OF SUN//SUN/SUN 0830 & 2029 sennosides-docusate sodium [Senokot-S] 8.6-50 mg Tablet 1 tab-cap PO UD Rx Instructions: GIVE 1 TABLET 2 TMES A DAY EVERY SUN/SUN/Sun,2029 tramadol 50 mg tablet 50 mg PO Q4 PRN (Reason: Pain 5-10) Qty: 6 0RF Discontinued bumetanide 2 mg tablet 4 mg PO BID Discharge Orders: Discharge Order (Routine); Ordered 04/17/24 Ordered By: Valorie Ng Admission Data Admit Date/Time: 04/09/24 20:34 Attending Provider: Valorie Ng Admit Provider: Devaughn Anthony Primary Care Provider: [facility] Other Providers: Kalia Frost III; [facility]; Devaughn Anthony; Bozena Farias; Cory Oviedo; Tara Ann; Andi Womack Hospital Stay Data Consultations 04/09/24 19:38 ED Decision to Admit Stat 04/09/24 19:50 Consult Nephrology Routine 04/10/24 11:08 Consult General Surgery Routine 04/10/24 14:59 Consult Collections And Archives Director Routine 04/14/24 08:00 Consult Vascular Surgery Routine Procedures Performed Operation Date: 04/15/24 10:30 Actual Procedures p Exchange of Perm Catheter, Fluroscopy for positioning (Left) - Andi Womack MD Diagnostic Imagining Performed 04/11/24 08:42 US point of care ultrasound Urgent 04/15/24 07:12 EV cvc replace tunnel wo pp Routine Pending Results Patient Have Any Pending Studies at Discharge: No Discharge Instructions Given to Patient (Per Discharging Provider) You were admitted with malfunctioning of your dialysis catheter and had this replaced. Your Bumex water pill was stopped by Nephrology. You can resume your usual dialysis schedule after discharge. Total Time Total Time Spent Total Time Spent (In Minutes): 35 min Total Time Includes: Examination of the Patient, Discharge Planning and Medication Reconciliation Coding Level of Care Code 97681 INP/OBS DISCH >30 MIN Diagnoses Complications, dialysis, catheter, mechanical T82.49XA Encounter type: initial encounter Hyperkalemia E87.5 Anemia D64.9 End stage renal disease N18.6 Hypertension I10 GERD (gastroesophageal reflux disease) K21.9 DM type 2 (diabetes mellitus, type 2) E11.9 Obesity (BMI 30-39.9) E66.9
[2024-04-17] MEDS ORDERED: ALBUT/IPRATROP 3MG/0.5MG NEB 3 ML VIAL NEB STA (11:58)
[2024-04-17] MEDS: ALBUT/IPRATROP 3MG/0.5MG NEB 3 ML VIAL ONE (12:00)
[2024-04-17 12:21] VITALS: BP 137/72; PULSE 88; RESP 16; O2SAT 97
== END 2024-04-17 12:23 | DRG 698 ==
LOC: ED 14:26 → EDINP 20:34 → SUATTDRO 20:34 → 2E 21:07

== ENCOUNTER 2024-05-23 12:17 | Inpatient (IN) ==
[2024-05-23] MEDS ORDERED: VANCOMYCIN CONSULT ACTIVE PRN ×2 (12:49→18:29)
--- NOTE | 2024-05-23 12:54 | Emergency Department Note ---
Impression & Plan Infection of venous access port, End stage renal disease on dialysis ED Provider Note NAME: ANNETTE ARRIETA AGE: 73 SEX: F : 1950 ARRIVES VIA: Ambulance INFORMANT: Patient ED PROVIDER(S): Carlos A Romero DO CHIEF COMPLAINT: port infection HPI: Patient is a 73-year-old female who presents to the ER for possible left port infection. Patient has been on dialysis since November 2022. Patient recently had this port placed about 2 to [address] Womack. She was getting dialysis today as she gets it Sunday, Sunday, and Sunday. She was referred in by nephrology as she has surrounding redness and the concern that the port is an infected needs to be changed. Patient denies all other complaints including headache, change in vision, chest pain, shortness of breath, nausea, vomiting or diarrhea. No urinary symptoms. No other exacerbating or remitting factors. ADDITIONAL HISTORY OBTAINED: Per HPI Chronic Medical/Social Conditions Affecting Care: Per HPI PAST MEDICAL HISTORY:See Below PAST SURGICAL HISTORY:See Below FAMILY HISTORY:See Below SOCIAL HISTORY:See Below HOME MEDICATIONS:See Below ALLERGIES:See Below VITALS:See Below PHYSICAL EXAMINATION: GENERAL: Sitting up in bed, alert, well appearing, well nourished, no distress, non-toxic EYE EXAM: normal conjunctiva. PERRL and EOM's grossly intact. CHEST: Port located along left chest wall. Mild surrounding erythema. No drainage or discharge. OROPHARYNX: mucous membranes are moist NECK: supple, no nuchal rigidity, no adenopathy, non-tender LUNGS: Clear to auscultation. Normal chest wall mechanics HEART: no murmurs, S1 normal and S2 normal ABDOMEN: abdomen soft, non-tender, normo-active bowel sounds, no masses, no rebound or guarding. Chest with tunneled catheter in left upper chest surrounding erythema. No drainage. UPPER EXTREMITIES: upper extremities are grossly normal. LOWER EXTREMITIES: No pitting edema. NEURO EXAM: Normal sensorium, cranial nerves II-XII grossly intact, normal speech, no gross weakness of arms, no gross weakness of legs. MEDICAL DECISION MAKING: Patient is a 73-year-old female who presents ER for above-stated complaint. IV was established medicos obtained. Labs show no significant leukocytosis or anemia. BMP with a creatinine 3.6 appropriate in dialysis patient. Lactate was 1.6. LFTs bilirubin unremarkable. Pro-Oseas slightly up at 0.5. Chest x-ray was clean. Patient was given IV vancomycin and cefepime while here in the ER. Spoke with nephrology and consulted with Dr. Womack. His plan currently is IV antibiotics and he will evaluate. Patient was seen by nephrology and they recommended having the port removed today. I recommended having them discussed the case with Dr. Womack. I did repeat him for the research pharmacist to speak with personally however he did not call back in time. Will defer to nephrology and vascular surgery for time in place to having line removed. Patient is currently hemodynamically stable at this time. Patient was already admitted to the hospital service. Consults/Care Managements Discussions: Per [facility] Triage Nursing notes reviewed. Limited review of prior medical records performed Vital Signs: reviewed and remarkable for no significant abnormalities Differential diagnosis: Cellulitis, abscess, MRSA infection, DVT, necrotizing fasciitis, dermatitis, drug eruption, allergic reaction, as well as other pathologies. ER treatment provided: See below Diagnostics interpreted by me include EKG and cardiac monitoring as listed below: -Cardiac Monitoring: An order was placed for continuous cardiac monitoring. The monitor shows a rate of 90 with sinus rhythm. -ECG: none -Laboratory studies:Interpreted by me as stated above in MDM and shown below. Imaging studies: Xrays: As interpreted by me: Portable AP upright 1 view of the chest shows no focal infiltrate and port left chest CTs show: none Procedures:none Critical Care: None Past Med/Surg History Problem List (Updated 05/23/24 @ 18:22 by Carlos A Romero DO) End stage renal disease on dialysis (Acute) Infection of venous access port (Acute) Hemodialysis catheter infection Anemia History of stroke Fall Encounter for pre-operative examination Intertrochanteric fracture of left femur Peritonitis associated with peritoneal dialysis Abdominal bloating (Acute) Inflammation of peritoneal dialysis catheter site (Acute) TIA (transient ischemic attack) End stage renal disease (Acute) Stroke-like symptoms (Acute) Lumbar radiculopathy Nausea vomiting and diarrhea (Acute) Hyperglycemia (Acute) Dehydration (Acute) Acute renal failure (Acute) S/P arthroscopic knee surgery (Chronic) H/O hand surgery (Chronic) S/P partial hysterectomy (Chronic) S/P cholecystectomy (Chronic) Chest pain (Acute) Degenerative disc disease, lumbar (Chronic) Hypertension (Chronic) History of skin cancer of unknown type (Chronic) "excised in remote past" Arthritis (Chronic) Depression (Chronic) Diabetic neuropathy (Chronic) History of asthma (Chronic) GERD (gastroesophageal reflux disease) (Chronic) Anxiety (Chronic) Obesity (BMI 30-39.9) (Chronic) Hypothyroid (Chronic) Hyperlipidemia (Chronic) DM type 2 (diabetes mellitus, type 2) (Acute) Medical History Obesity History of recent hospitalization 04/09-04/17/24 [facility]; admitted for hyperkalemia and malfunctioning port (hyperkalemia resolved prior to D/C, had new tunneled HD cath placed); D/C to SNF Diabetic neuropathy Breakdown (mechanical) of vascular dialysis catheter, subsequent encounter Other complication of vascular dialysis catheter, subsequent encounter Nondisplaced intertrochanteric fracture of left femur, subsequent encounter for closed fracture with routine healing 05/2024 [facility] admission; observation by ortho/pt/ot Other abnormalities of gait and mobility Cognitive communication deficit per chart review; unable to get further info from SNF Dysphagia, oral phase Muscle weakness (generalized) Radiculopathy, lumbar region Anemia Other specified diabetes mellitus with diabetic nephropathy IDDM GERD without esophagitis Hypothyroidism Personal history of transient ischemic attack (TIA), and cerebral infarction without residual deficits Hyperlipidemia Hypertensive chronic kidney disease Weakness 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 Pneumonitis due to inhalation of food and vomit 05/2023 [facility] admission Dependence on renal dialysis hemodialysis done on site at [facility] w/ [facility] M/W/F ESRD (end stage renal disease) on dialysis hemodialysis done on site at [facility] dysfunction per chart review, 'mostly uses WC and can stand with assistance' Dyspnea on exertion Exertional chest pain 2021 Surgical History History of vascular surgery removal CAPD catheter 05/31/23: GA: MAC#3, ETT#7.0, Gr View 1, atraumatic x 1 S/P partial hysterectomy S/P cholecystectomy S/P arthroscopic knee surgery H/O hand surgery 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 Family History Other Cancer Social History Smoking Status: Never smoker Preferred Language: Romanian Communication Ability: Unknown Box Estimator Required: No Beliefs That Will Affect Care: None marital status: / Current Living Situation: Prison Current Living Situation Comment: [facility] Feels Safe at Home: Yes Assistive Devices: Wheelchair Allergies Allergies Allergy/AdvReac Type Severity Reaction Status Date / Time meperidine Allergy Intermediate hypotension-passed Verified 05/21/24 10:49 out Home Meds Home Medications Medication Instructions Recorded Confirmed cholecalciferol (vitamin D3) 125 125 mcg PO QPM 04/20/22 05/23/24 mcg (5,000 unit) tablet (Vitamin D3) atorvastatin 40 mg tablet 40 mg PO HS 07/23/22 05/23/24 docusate sodium 100 mg capsule 100 mg PO BID 07/23/22 05/23/24 insulin aspar prot-insulin aspart 40 unit subcut UD 07/23/22 05/23/24 100 unit/mL (70-30) subcutaneous pen (Novolog Mix 70-30FlexPen U-100) isosorbide mononitrate 30 mg 30 mg PO QPM 07/23/22 05/23/24 tablet,extended release 24 hr levothyroxine 50 mcg tablet 50 mcg PO DAILY 07/23/22 05/23/24 metoprolol succinate 50 mg 50 mg PO QPM 07/23/22 05/23/24 tablet,extended release 24 hr duloxetine 20 mg capsule,delayed 20 mg PO QPM 05/18/23 05/23/24 release ropinirole 0.25 mg tablet 0.25 mg PO HS 05/18/23 05/23/24 acetaminophen 325 mg tablet 650 mg PO Q6 PRN TEMP > 100 04/09/24 05/23/24 amlodipine 5 mg tablet 10 mg PO QPM 04/09/24 05/23/24 calcium acetate 667 mg tablet 1,334 mg PO UD 04/09/24 05/23/24 ferric citrate 210 mg iron tablet 210 mg PO WM 04/09/24 05/23/24 (Auryxia) gabapentin 100 mg capsule 100 mg PO UD 04/09/24 05/23/24 gabapentin 600 mg tablet 600 mg PO QPM 04/09/24 05/23/24 mirtazapine 7.5 mg tablet 7.5 mg PO HS 04/09/24 05/23/24 ondansetron 4 mg disintegrating 4 mg PO Q6H PRN Nausea And Vomiting 04/09/24 05/23/24 tablet pantoprazole 40 mg tablet,delayed 40 mg PO HS 04/09/24 05/23/24 release polyethylene glycol 3350 17 17 g PO AMHS 04/09/24 05/23/24 gram/dose oral powder (Miralax) sennosides 8.6 mg-docusate sodium 1 tab-cap PO UD 04/09/24 05/23/24 50 mg tablet (Senokot-S) sennosides 8.6 mg-docusate sodium 1 tab-cap PO UD 04/09/24 05/23/24 50 mg tablet (Senokot-S) insulin lispro 100 unit/mL 1 sliding scale dose subcut UD 05/21/24 05/23/24 subcutaneous solution melatonin 5 mg tablet 10 mg PO HS 05/21/24 05/23/24 oxybutynin chloride 2.5 mg tablet 2.5 mg PO QPM 05/21/24 05/23/24 tramadol 50 mg tablet 50 mg PO Q4H PRN Pain 5-10 05/21/24 05/23/24 acetaminophen 325 mg tablet 650 mg PO Q6 PRN .PAIN 1-4 05/23/24 05/23/24 albuterol sulfate 2.5 mg/3 mL 2.5 mg inhalation Q4H PRN 05/23/24 05/23/24 (0.083 %) solution for nebulization Shortness Of Breath Or Wheezing calcium acetate 667 mg tablet 667 mg PO . NEEDED PRN SNACKS 05/23/24 05/23/24 ciprofloxacin HCl 250 mg tablet 250 mg PO QPM 05/23/24 05/23/24 protein supplement 1 ea PO BID 05/23/24 05/23/24 Results & Data (ED) Vital Signs Vital Signs - 24 hr 05/23/24 12:14 05/23/24 12:14 05/23/24 12:35 Temperature 36.9 C Temperature Source Oral Pulse Rate 87 90 Pulse Rate [Left Finger] Pulse Rhythm Pulse Rhythm [Left Finger] Pulse Strength [Left Finger] Respiratory Rate 18 18 Respiratory Effort / Characteristics Respiratory Depth Respiratory Pattern Blood Pressure 103/65 Blood Pressure [Right Arm] Blood Pressure Mean 77 Blood Pressure Mean [Right Arm] Blood Pressure Position [Right Arm] Pulse Oximetry 96 Oxygen Delivery Method Sepsis Recent Fever Within 48 Hours No Sepsis New/Unexplained Change in Mental Status N/A Sepsis Action Taken by Nursing No Action Required 05/23/24 12:48 05/23/24 12:48 05/23/24 14:30 Temperature Temperature Source Pulse Rate 93 H Pulse Rate [Left Finger] Pulse Rhythm Regular Pulse Rhythm [Left Finger] Pulse Strength [Left Finger] Respiratory Rate 20 20 18 Respiratory Effort / Characteristics Non-Labored Spontaneous Non-Labored Spontaneous Respiratory Depth Normal Normal Respiratory Pattern Regular Regular Blood Pressure Blood Pressure [Right Arm] 103/65 Blood Pressure Mean Blood Pressure Mean [Right Arm] 77 Blood Pressure Position [Right Arm] Lying Pulse Oximetry 96 96 97 Oxygen Delivery Method Room Air Room Air Sepsis Recent Fever Within 48 Hours Sepsis New/Unexplained Change in Mental Status Sepsis Action Taken by Nursing 05/23/24 16:04 05/23/24 16:39 05/23/24 17:00 Temperature Temperature Source Pulse Rate 95 H Pulse Rate [Left Finger] 93 H 97 H Pulse Rhythm Pulse Rhythm [Left Finger] Regular Pulse Strength [Left Finger] Normal Respiratory Rate 20 18 Respiratory Effort / Characteristics Non-Labored Spontaneous Non-Labored Spontaneous Respiratory Depth Normal Normal Respiratory Pattern Regular Blood Pressure Blood Pressure [Right Arm] 103/65 103/65 Blood Pressure Mean Blood Pressure Mean [Right Arm] 77 77 Blood Pressure Position [Right Arm] Lying Lying Pulse Oximetry 98 96 Oxygen Delivery Method Room Air Room Air Sepsis Recent Fever Within 48 Hours Sepsis New/Unexplained Change in Mental Status Sepsis Action Taken by Nursing Laboratory Data 05/23/24 12:30 05/23/24 12:30 Lab Results 05/23/24 05/23/24 Range/Units 12:30 13:00 WBC 10.57 (4.8-10.8) K/ul RBC 4.17 L (4.20-5.40) M/uL Hgb 13.3 (12.0-16.0) g/dl Hct 39.6 (37.0-47.0) % MCV 95.0 (80.0-100.0) fL MCH 31.9 (25.0-34.0) pg MCHC 33.6 (32.0-36.0) g/dL RDW Std Deviation 49.9 H (36.4-46.3) fL RDW Coeff of [place] 14.6 H (11.5-14.5) % Plt Count 276 (130-400) K/uL MPV 9.8 (9.4-12.4) fL Immature Gran % (Auto) 0.5 % Neut % (Auto) 70.1 % Lymph % (Auto) 16.4 % [place] % (Auto) 7.0 % Eos % (Auto) 5.1 % Baso % (Auto) 0.9 % Neut # (Auto) 7.41 H (1.40-6.50) K/uL Lymph # (Auto) 1.73 (1.20-3.40) K/uL [place] # (Auto) 0.74 H (0.11-0.59) K/uL Eos # (Auto) 0.54 H (0.00-0.50) K/uL Baso # (Auto) 0.10 (0.00-0.20) K/uL Immature Gran # (Auto) 0.05 (0.01-0.20) K/uL Sodium 136 (136-145) mmol/L Potassium 4.4 (3.5-5.1) mmol/L Chloride 94 L (98-107) mmol/L Carbon Dioxide 34 H (21-32) mmol/L Anion Gap 8 (3-11) BUN 19 (6-23) mg/dl Creatinine 3.66 H D (0.6-1.2) mg/dl Est Cr Clr Drug Dosing 15.0 ml/min eGFR 12.62 BUN/Creatinine Ratio 5.2 L (10-20) Glucose 130 H (70-99(Fasting)) mg/dl Lactate 1.6 (0.4-2.0) mmol/L Calcium 9.8 (8.6-10.3) mg/dl Magnesium 2.0 (1.7-2.4) mg/dl Total Bilirubin 0.4 (0.2-1.0) mg/dl Direct Bilirubin 0.0 (0-0.2) mg/dl AST 17 (13-39) U/L ALT 15 (7-52) U/L Alkaline Phosphatase 87 (34-104) U/L Troponin I High Sens 11.0 (0-14) pg/ml Total Protein 8.8 H (6.0-8.3) gm/dl Albumin 4.3 (3.4-5.0) gm/dl Procalcitonin 0.51 H (0-0.5) ng/ml Administered Medications Discontinued Medications Cefepime HCl (Maxipime 2000mg) 2,000 mg in 20 mls @ 5 mls/min IV NOW STA; Protocol Stop: 05/23/24 12:52 Last Admin: 05/23/24 13:11 Dose: 5 mls/min Documented By: KOSTAS Vancomycin HCl 2,000 mg/ (Sodium Chloride) 540 mls @ 200 mls/hr IV NOW ONE Stop: 05/23/24 15:30 Last Admin: 05/23/24 13:23 Dose: 200 mls/hr Documented By: THAO Imaging Data Radiologist's Impression: Chest X-Ray 05/23/24 12:48 SINGLE VIEW CHEST CLINICAL HISTORY: Sepsis FINDINGS: An AP, portable, upright chest radiograph is compared to study dated 04/09/2024. A left sided central venous catheter is unchanged in position. The cardiomediastinal silhouette is unremarkable. Chronic interstitial thickening similar to previous. There is mild bibasilar scarring/atelectasis. The lungs and pleural spaces are otherwise clear. No pneumothorax is seen. The skeletal structures are osteopenic. The bony thorax is grossly intact. IMPRESSION: No active disease in the chest. ACT 112: Negative or not required by law. Electronically signed by: Chadd Grace M.D. 05/23/2024 1:09 PM Discharge Plan Visit Data Chief Complaint: Illness Stated Complaint: POSSIBLE INFECTION, REFERRED BY PCP ED Provider: Carlos A Romero Discharge Problem: Infection of venous access port, End stage renal disease on dialysis Forms Stand Alone Forms: My [facility] Simphatic Prescriptions Prescriptions: No Action ropinirole 0.25 mg tablet 0.25 mg PO HS duloxetine 20 mg capsule,delayed release(DR/EC) 20 mg PO QPM cholecalciferol (vitamin D3) [Vitamin D3] 125 mcg (5,000 unit) Tablet 125 mcg PO QPM metoprolol succinate 50 mg tablet extended release 24 hr 50 mg PO QPM insulin asp prt-insulin aspart [Novolog Mix 70-30FlexPen U-100] 100 unit/mL (70-30) insulin pen 40 unit SUBCUT UD Rx Instructions: give 40 units subcutaneously in the morning every //Sat/Sun give 40 units subcutaneously one time a day every Sun/Sun/Sun *med on hold 05/29/24399 to 05/30/24358 atorvastatin 40 mg tablet 40 mg PO HS isosorbide mononitrate 30 mg tablet extended release 24 hr 30 mg PO QPM levothyroxine 50 mcg tablet 50 mcg PO DAILY Rx Instructions: *med on hold from 05/29/24399 to 05/29/241599 docusate sodium 100 mg Capsule 100 mg PO BID insulin lispro 100 unit/mL Solution 1 sliding scale dose SUBCUT UD Rx Instructions: if BS 350-400=8 units; 401-450=12 units; 451-500=16 units; 501-550=18 units; recheck BS in 2 hours, 551-1000-20 units; recheck BS in 1 hour, report results to MD/CLAIMS SERVICE REPRESENTATIVE, subcutaneous every shift for blood sugars >350 *on hold from 05/29/24399 to 05/30/24358 melatonin 5 mg Tablet 10 mg PO HS oxybutynin chloride 2.5 mg Tablet 2.5 mg PO QPM tramadol 50 mg tablet 50 mg PO Q4H PRN (Reason: Pain 5-10) amlodipine 5 mg tablet 10 mg PO QPM gabapentin 100 mg capsule 100 mg PO UD Rx Instructions: take in afternoon of SUNDAY,SUNDAY,SUNDAY'S med on hold from 04005/29/24 to 1600 05/29/24 gabapentin 600 mg tablet 600 mg PO QPM pantoprazole 40 mg tablet,delayed release (DR/EC) 40 mg PO HS calcium acetate 667 mg Tablet 1,334 mg PO UD Rx Instructions: give 2 cap by mouth with meals med on hold for doses from 05/29/24399 to 05/29/24 1600 Auryxia 210 mg iron Tablet 210 mg PO WM Rx Instructions: give 1 tablet by mouth with meals *med on hold for doses from 05/29/24399 to 05/29/241599 polyethylene glycol 3350 [Miralax] 17 gram/dose Powder 17 g PO AMHS Rx Instructions: med on hold 05/29/24399 to 05/29/24399 mirtazapine 7.5 mg tablet 7.5 mg PO HS ondansetron 4 mg Tablet,Disintegrating 4 mg PO Q6H PRN (Reason: Nausea And Vomiting) acetaminophen 325 mg Tablet 650 mg PO Q6 MDD 3G PRN (Reason: TEMP > 100) sennosides-docusate sodium [Senokot-S] 8.6-50 mg Tablet 1 tab-cap PO UD Rx Instructions: GIVE EVERY MORNING AND BEDTIME OF TUE/THURS/SAT/SUN 0830 & 2029 med on hold 05/29/24399 to 05/29/24399 sennosides-docusate sodium [Senokot-S] 8.6-50 mg Tablet 1 tab-cap PO UD Rx Instructions: GIVE 1 TABLET 2 TMES A DAY EVERY MON/SUN/SUN 0600,2029 med on hold 05/29/24399 to 05/29/24399 albuterol sulfate 2.5 mg /3 mL (0.083 %) solution for nebulization 2.5 mg inhalation Q4H PRN (Reason: Shortness Of Breath Or Wheezing) protein supplement Liquid 1 ea PO BID Rx Instructions: 30 ML DOSE calcium acetate 667 mg Tablet 667 mg PO . NEEDED PRN (Reason: SNACKS) acetaminophen 325 mg Tablet 650 mg PO Q6 MDD 3G PRN (Reason: .PAIN 1-4) ciprofloxacin HCl 250 mg tablet 250 mg PO QPM Rx Instructions: TAKE FOR 7 DAYS...START 05/22/24 Referrals Referrals: [facility] [Primary Care Provider] - Discharge Problem: Infection of venous access port Qualifiers: Encounter type: initial encounter Qualified Code(s): T80.219A - Unspecified infection due to central venous catheter, initial encounter
[2024-05-23 13:02] LABS: Basophils % (auto) 0.9 %; Eosinophils # (auto) 0.54 K/uL (0.00-0.50); Eosinophils % (auto) 5.1 %; Hematocrit (blood only) 39.6 % (37.0-47.0); Hemoglobin 13.3 g/dl (12.0-16.0); Immature Granulocytes # (auto) 0.05 K/uL (0.01-0.20); Immature Granulocytes % (auto) 0.5 %; Lymphocytes # (auto) 1.73 K/uL (1.20-3.40); Lymphocytes % (auto) 16.4 %; Mean Corpuscular Hemoglobin 31.9 pg (25.0-34.0); Mean Corpuscular Hgb Conc 33.6 g/dL (32.0-36.0); Mean Platelet Volume 9.8 fL (9.4-12.4); Monocytes # (auto) 0.74 K/uL (0.11-0.59); Neutrophils # (auto) 7.41 K/uL (1.40-6.50); Neutrophils % (auto) 70.1 %; Platelet Count 276 K/uL (130-400); RDW Coefficient of Variation 14.6 % (11.5-14.5); RDW Standard Deviation 49.9 fL (36.4-46.3); Red Blood Count 4.17 M/uL (4.20-5.40); White Blood Count 10.57 K/ul (4.8-10.8)
--- NOTE | 2024-05-23 13:10 | XRay Report ---
SINGLE VIEW CHEST CLINICAL HISTORY: Sepsis FINDINGS: An AP, portable, upright chest radiograph is compared to study dated 04/09/2024. A left side d central venous catheter is unchanged in position. The cardiomediastinal silhouette is unremarkable. Chronic interstitial thickening similar to previous. There is mild bibasilar scarring/atelectasis. T he lungs and pleural spaces are otherwise clear. No pneumothorax is seen. The skeletal structures are osteopenic. The bony thorax is grossly intact. IMPRESSION: No active disease in the chest. ACT 112: Negative or not required by law. Electronically signed by: Chadd Grace M.D. 05/23/2024 1:09 PM
[2024-05-23] MEDS: CEFEPIME 2000MG 2,000 MG/20 ML SYR IV STA (13:11)
[2024-05-23 13:20] LABS: Albumin Level 4.3 gm/dl (3.4-5.0); BUN Creatinine Ratio 5.2 (10-20); Bilirubin,Total 0.4 mg/dl (0.2-1.0); Calcium 9.8 mg/dl (8.6-10.3); Potassium 4.4 mmol/L (3.5-5.1); Total Protein 8.8 gm/dl (6.0-8.3)
[2024-05-23] MEDS: VANCOMYCIN HCL 2,000 MG in SODIUM CHLORIDE 0.9% 500 ML IV ONE (13:23)
[2024-05-23] MEDS ORDERED: DEXTROSE 50% 50 ML SYRINGE IV PRN (15:41)
[2024-05-23] MEDS ORDERED: GLUCAGON FOR INJ 1 MG VIAL SQ PRN (15:41)
[2024-05-23] MEDS ORDERED: CARBOHYDRATES FOR HYPOGLYCEMIA PO PRN (15:41)
[2024-05-23] MEDS ORDERED: GLUCOSE 40% GEL 15 GM TUBE PO PRN (15:41)
[2024-05-23] MEDS ORDERED: GLUCOSE 10 TAB/TUBE PO PRN (15:41)
--- NOTE | 2024-05-23 15:52 | History & Physical Report ---
Date of Service May 23, 2024 Assessment & Plan (1) Hemodialysis catheter infection: Plan: Recently replaced tunneled dialysis catheter left upper chest wall on April 15 of this year. Now with surrounding erythema. Suspected infection. Vancomycin and cefepime have been started. Vascular surgery consultation requested and pending (2) End stage renal disease: Plan: [facility]. Continue usual hemodialysis schedule. Serial labs (3) Hypertension: Plan: Stable. Continue current medical management (4) DM type 2 (diabetes mellitus, type 2): Plan: ADA diet. Continue basal insulin therapy. Sliding scale coverage as needed Plan Anticipate eventual return to [facility] early next week History of Present Illness Chief Complaint: Erythema around tunneled dialysis catheter Primary Care Provider: [facility] 73-year-old white female with a history of end-stage renal disease on hemodialysis. She recently underwent replacement of tunneled dialysis catheter in the left upper anterior chest wall on April 15 of this year. She now has surrounding erythema although she is asymptomatic except for local tenderness. She is being admitted for antibiotic therapy and vascular evaluation to see if the catheter needs removed and replaced Allergies Allergy/AdvReac Type Severity Reaction Status Date / Time meperidine Allergy Intermediate hypotension-passed Verified 05/21/24 10:49 out Home Medications Medication Instructions Recorded Confirmed Type cholecalciferol (vitamin D3) 125 125 mcg PO QPM 04/20/22 05/21/24 History mcg (5,000 unit) tablet (Vitamin D3) atorvastatin 40 mg tablet 40 mg PO HS 07/23/22 05/21/24 History docusate sodium 100 mg capsule 100 mg PO BID 07/23/22 05/21/24 History insulin aspar prot-insulin aspart 40 unit subcut QPM 07/23/22 05/21/24 History 100 unit/mL (70-30) subcutaneous pen (Novolog Mix 70-30FlexPen U-100) insulin aspar prot-insulin aspart 40 unit subcut UD 07/23/22 05/21/24 History 100 unit/mL (70-30) subcutaneous pen (Novolog Mix 70-30FlexPen U-100) isosorbide mononitrate 30 mg 30 mg PO QPM 07/23/22 05/21/24 History tablet,extended release 24 hr levothyroxine 50 mcg tablet 50 mcg PO DAILY 07/23/22 05/21/24 History metoprolol succinate 50 mg 50 mg PO QPM 07/23/22 05/21/24 History tablet,extended release 24 hr duloxetine 20 mg capsule,delayed 20 mg PO QPM 05/18/23 05/21/24 History release ropinirole 0.25 mg tablet 0.25 mg PO 05/18/23 05/21/24 History acetaminophen 325 mg tablet 650 mg PO Q6 PRN TEMP > 100 04/09/24 05/21/24 History amlodipine 5 mg tablet 10 mg PO QPM 04/09/24 05/21/24 History calcium acetate 667 mg tablet 1,334 mg PO 04/09/24 05/21/24 History clopidogrel 75 mg tablet 75 mg PO QPM 04/09/24 05/21/24 History ferric citrate 210 mg iron tablet 210 mg PO 04/09/24 05/21/24 History (Auryxia) gabapentin 100 mg capsule 100 mg PO 04/09/24 05/21/24 History gabapentin 600 mg tablet 600 mg PO QPM 04/09/24 05/21/24 History mirtazapine 7.5 mg tablet 7.5 mg PO 04/09/24 05/21/24 History ondansetron 4 mg disintegrating 4 mg PO Q6H PRN Nausea And Vomiting 04/09/24 05/21/24 History tablet pantoprazole 40 mg tablet,delayed 40 mg PO 04/09/24 05/21/24 History release polyethylene glycol 3350 17 17 g PO 04/09/24 05/21/24 History gram/dose oral powder (Miralax) polyethylene glycol 3350 17 17 g PO 04/09/24 05/21/24 History gram/dose oral powder (Miralax) sennosides 8.6 mg-docusate sodium 1 tab-cap PO 04/09/24 05/21/24 History 50 mg tablet (Senokot-S) sennosides 8.6 mg-docusate sodium 1 tab-cap PO 04/09/24 05/21/24 History 50 mg tablet (Senokot-S) insulin lispro 100 unit/mL 1 sliding scale dose subcut 05/21/24 05/21/24 History subcutaneous solution melatonin 5 mg tablet 10 mg PO 05/21/24 05/21/24 History oxybutynin chloride 2.5 mg tablet 2.5 mg PO QPM 05/21/24 05/21/24 History tramadol 50 mg tablet 50 mg PO Q4H PRN Pain 5-10 05/21/24 05/21/24 History albuterol sulfate 2.5 mg/3 mL 2.5 mg inhalation Q4H PRN sob 05/23/24 05/23/24 History (0.083 %) solution for nebulization Past Med/Surg History Problem List (Updated 05/23/24 @ 15:50 by Efrain Loaiza MD) Hemodialysis catheter infection Anemia History of stroke Fall Encounter for pre-operative examination Intertrochanteric fracture of left femur Peritonitis associated with peritoneal dialysis Abdominal bloating (Acute) Inflammation of peritoneal dialysis catheter site (Acute) TIA (transient ischemic attack) End stage renal disease (Acute) Stroke-like symptoms (Acute) Lumbar radiculopathy Nausea vomiting and diarrhea (Acute) Hyperglycemia (Acute) Dehydration (Acute) Acute renal failure (Acute) S/P arthroscopic knee surgery (Chronic) H/O hand surgery (Chronic) S/P partial hysterectomy (Chronic) S/P cholecystectomy (Chronic) Chest pain (Acute) Degenerative disc disease, lumbar (Chronic) Hypertension (Chronic) History of skin cancer of unknown type (Chronic) "excised in remote past" Arthritis (Chronic) Depression (Chronic) Diabetic neuropathy (Chronic) History of asthma (Chronic) GERD (gastroesophageal reflux disease) (Chronic) Anxiety (Chronic) Obesity (BMI 30-39.9) (Chronic) Hypothyroid (Chronic) Hyperlipidemia (Chronic) DM type 2 (diabetes mellitus, type 2) (Acute) Medical History (Updated 05/23/24 @ 15:50 by Efrain Loaiza MD) Obesity History of recent hospitalization 04/09-04/17/24 [facility]; admitted for hyperkalemia and malfunctioning port (hyperkalemia resolved prior to D/C, had new tunneled HD cath placed); D/C to SNF Diabetic neuropathy Breakdown (mechanical) of vascular dialysis catheter, subsequent encounter Other complication of vascular dialysis catheter, subsequent encounter Nondisplaced intertrochanteric fracture of left femur, subsequent encounter for closed fracture with routine healing 05/2024 [facility] admission; observation by ortho/pt/ot Other abnormalities of gait and mobility Cognitive communication deficit per chart review; unable to get further info from SNF Dysphagia, oral phase Muscle weakness (generalized) Radiculopathy, lumbar region Anemia Other specified diabetes mellitus with diabetic nephropathy IDDM GERD without esophagitis Hypothyroidism Personal history of transient ischemic attack (TIA), and cerebral infarction without residual deficits Hyperlipidemia Hypertensive chronic kidney disease Weakness Major depressive disorder [facility] (current) use of insulin Pneumonitis due to inhalation of food and vomit 05/2023 [facility] admission Dependence on renal dialysis hemodialysis done on site at [facility] w/ [facility] M/W/F ESRD (end stage renal disease) on dialysis hemodialysis done on site at [facility] Ambulatory dysfunction per chart review, 'mostly uses WC and can stand with assistance' Dyspnea on exertion Exertional chest pain 2021 Surgical History (Updated 05/21/24 @ 15:33 by Modesta Chaparro PA-C) History of vascular surgery removal CAPD catheter 05/31/23: GA: MAC#3, ETT#7.0, Gr View 1, atraumatic x 1 S/P partial hysterectomy S/P cholecystectomy S/P arthroscopic knee surgery H/O hand surgery 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 Family History Other Cancer Social History Smoking Status: Never smoker Preferred Language: Telugu Communication Ability: Unknown 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: No Beliefs That Will Affect Care: None marital status: / Current Living Situation: Retirement Current Living Situation Comment: [facility] Feels Safe at Home: Yes Assistive Devices: Wheelchair Review of Systems 2 Review of Systems: Constitutionalno fever or chills ENTno blurred vision, no double vision, no epistaxis, no sore throat Respiratoryno cough, no wheezing, no shortness of breath Cardiacno palpitations, no chest pain, no syncope Liz nausea, vomiting, diarrhea, melena, hematochezia GUno urinary retention, no urinary incontinence, no dysuria, no hematuria Musculoskeletalno joint pain, no muscle tenderness Skinno bruising, no rashes, no pruritus Neurono isolated weakness, no paresthesia, no weakness Psychno depression, no anxiety Physical Exam 2 Physical Exam: General-alert and oriented x3, no fever, no chills HEENT-head atraumatic and normocephalic, pupils equal and reactive to light, extraocular muscles intact Neck-no lymphadenopathy or thyromegaly, trachea midline Chest-clear to auscultation. No rales, wheezing or rhonchi Cardiac-regular rate and rhythm, normal S1 and S2 Abdomen-normal bowel sounds, no hepatosplenomegaly Extremities-no cyanosis, clubbing, or edema Skintunneled dialysis catheter in place in the left upper anterior chest wall with surrounding erythema at the insertion site. No purulence seen. Neuro-cranial nerves II through XII intact, motor and sensory function within normal limits, strength symmetrical, no focal deficits Psych-normal affect, normal mood Results & Data Results & Data Vital Signs (Past 12 Hours) Vital Signs Temp Pulse Resp BP BP Pulse Ox O2 Del Method 05/23/24 14:30 18 103/65 97 Room Air 05/23/24 12:48 20 96 05/23/24 12:48 93 H 20 96 Room Air 05/23/24 12:35 90 05/23/24 12:14 18 05/23/24 12:14 36.9 C 87 18 103/65 96 Laboratory Results 05/23/24 12:30 05/23/24 12:30 Code Status & VTE Plan Code Status full PG Care Time/CCT Total # of Minutes Spent Total Time Spent with Patient: Total time spent is greater than 50% in coordination of care (as documented) at patient's floor/unit and/or counseling patient: Coding Level of Care Code 95950 INT INP/OBS CARE 3/75MIN Diagnoses Hemodialysis catheter infection T82.7XXA End stage renal disease N18.6 Hypertension I10 DM type 2 (diabetes mellitus, type 2) E11.9
--- NOTE | 2024-05-23 15:57 | Nephrology Consultation ---
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 Line holiday for next 3 days. new CVC if Blood C/s negative for 48 hrs. She did get Blood C/s done at [facility] dialysis--result wont be back till sunday. Should get new Blood C/s here also so we have report sooner. Iv vancomycin and Iv Cefepime to cover Gram +ve and gram -ve. (2) End stage renal disease: No e/o fluid overload and lytes are fine. She should be able to handle no dialysis for next 3-4 days. History of Present Illness Reason for Consultation: ESRD with Exit site infection reccurent Attending Physician: Dr Romero in ED History of Present Illness 73/F with ESRD on HD--[facility] Sent after dialysis because of Exit site infection . this is 3rd time. reddish around exit site and also purulent discharge noted from Cath site/exit site. occ Chills. patient appears fairly normal now. ROS---12 systems reviewed and negative exam: Awake and alert. No distress. Chest Clear. CV--S1 and s2 regular. Abd--Soft non tender. Ext--No edema. Dialysis Exit site: redness and Some purulent material on pressing. Mildly tender. Allergies Allergy/AdvReac Type Severity Reaction Status Date / Time meperidine Allergy Intermediate hypotension-passed Verified 05/21/24 10:49 out Home Medications Medication Instructions Recorded Confirmed Type cholecalciferol (vitamin D3) 125 125 mcg PO QPM 04/20/22 05/21/24 History mcg (5,000 unit) tablet (Vitamin D3) atorvastatin 40 mg tablet 40 mg PO HS 07/23/22 05/21/24 History docusate sodium 100 mg capsule 100 mg PO BID 07/23/22 05/21/24 History insulin aspar prot-insulin aspart 40 unit subcut QPM 07/23/22 05/21/24 History 100 unit/mL (70-30) subcutaneous pen (Novolog Mix 70-30FlexPen U-100) insulin aspar prot-insulin aspart 40 unit subcut UD 07/23/22 05/21/24 History 100 unit/mL (70-30) subcutaneous pen (Novolog Mix 70-30FlexPen U-100) isosorbide mononitrate 30 mg 30 mg PO QPM 07/23/22 05/21/24 History tablet,extended release 24 hr levothyroxine 50 mcg tablet 50 mcg PO DAILY 07/23/22 05/21/24 History metoprolol succinate 50 mg 50 mg PO QPM 07/23/22 05/21/24 History tablet,extended release 24 hr duloxetine 20 mg capsule,delayed 20 mg PO QPM 05/18/23 05/21/24 History release ropinirole 0.25 mg tablet 0.25 mg PO HS 05/18/23 05/21/24 History acetaminophen 325 mg tablet 650 mg PO Q6 PRN TEMP > 100 04/09/24 05/21/24 History amlodipine 5 mg tablet 10 mg PO QPM 04/09/24 05/21/24 History calcium acetate 667 mg tablet 1,334 mg PO UD 04/09/24 05/21/24 History clopidogrel 75 mg tablet 75 mg PO QPM 04/09/24 05/21/24 History ferric citrate 210 mg iron tablet 210 mg PO UD 04/09/24 05/21/24 History (Auryxia) gabapentin 100 mg capsule 100 mg PO UD 04/09/24 05/21/24 History gabapentin 600 mg tablet 600 mg PO QPM 04/09/24 05/21/24 History mirtazapine 7.5 mg tablet 7.5 mg PO HS 04/09/24 05/21/24 History ondansetron 4 mg disintegrating 4 mg PO Q6H PRN Nausea And Vomiting 04/09/24 05/21/24 History tablet pantoprazole 40 mg tablet,delayed 40 mg PO HS 04/09/24 05/21/24 History release polyethylene glycol 3350 17 17 g PO UD 04/09/24 05/21/24 History gram/dose oral powder (Miralax) polyethylene glycol 3350 17 17 g PO UD 04/09/24 05/21/24 History gram/dose oral powder (Miralax) sennosides 8.6 mg-docusate sodium 1 tab-cap PO UD 04/09/24 05/21/24 History 50 mg tablet (Senokot-S) sennosides 8.6 mg-docusate sodium 1 tab-cap PO UD 04/09/24 05/21/24 History 50 mg tablet (Senokot-S) insulin lispro 100 unit/mL 1 sliding scale dose subcut UD 05/21/24 05/21/24 History subcutaneous solution melatonin 5 mg tablet 10 mg PO HS 05/21/24 05/21/24 History oxybutynin chloride 2.5 mg tablet 2.5 mg PO QPM 05/21/24 05/21/24 History tramadol 50 mg tablet 50 mg PO Q4H PRN Pain 5-10 05/21/24 05/21/24 History albuterol sulfate 2.5 mg/3 mL 2.5 mg inhalation Q4H PRN sob 05/23/24 05/23/24 History (0.083 %) solution for nebulization Patient History Medical History Obesity History of recent hospitalization 04/09-04/17/24 [facility]; admitted for hyperkalemia and malfunctioning port (hyperkalemia resolved prior to D/C, had new tunneled HD cath placed); D/C to SNF Diabetic neuropathy Breakdown (mechanical) of vascular dialysis catheter, subsequent encounter Other complication of vascular dialysis catheter, subsequent encounter Nondisplaced intertrochanteric fracture of left femur, subsequent encounter for closed fracture with routine healing 05/2024 [facility] admission; observation by ortho/pt/ot Other abnormalities of gait and mobility Cognitive communication deficit per chart review; unable to get further info from SNF Dysphagia, oral phase Muscle weakness (generalized) Radiculopathy, lumbar region Anemia Other specified diabetes mellitus with diabetic nephropathy IDDM GERD without esophagitis Hypothyroidism Personal history of transient ischemic attack (TIA), and cerebral infarction without residual deficits Hyperlipidemia Hypertensive chronic kidney disease Weakness Major depressive disorder nursing home (current) use of insulin Pneumonitis due to inhalation of food and vomit 05/2023 [facility] admission Dependence on renal dialysis hemodialysis done on site at [facility] w/ [facility] M/W/F ESRD (end stage renal disease) on dialysis hemodialysis done on site at [facility] w/ [facility] Ambulatory dysfunction per chart review, 'mostly uses WC and can stand with assistance' Dyspnea on exertion Exertional chest pain 2021 Surgical History History of vascular surgery removal CAPD catheter 05/31/23: GA: MAC#3, ETT#7.0, Gr View 1, atraumatic x 1 S/P partial hysterectomy S/P cholecystectomy S/P arthroscopic knee surgery H/O hand surgery 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 Family History Other Cancer Social History Smoking Status: Never smoker Preferred Language: Guyanese Communication Ability: Unknown Traffic Coordinator Required: No Beliefs That Will Affect Care: None marital status: / Current Living Situation: Snf Current Living Situation Comment: [facility] Feels Safe at Home: Yes Assistive Devices: Wheelchair Results & Data Vital Signs (Past 12 Hours) Vital Signs Temp Pulse Resp BP BP Pulse Ox O2 Del Method 05/23/24 14:30 18 103/65 97 Room Air 05/23/24 12:48 20 96 05/23/24 12:48 93 H 20 96 Room Air 05/23/24 12:35 90 05/23/24 12:14 18 05/23/24 12:14 36.9 C 87 18 103/65 96
[2024-05-23] MEDS ORDERED: ALBUTEROL 0.083% NEBU SOLN 3 ML VIAL INH PRN (18:29)
[2024-05-23] MEDS ORDERED: ACETAMINOPHEN 325 MG TAB PO PRN (18:29)
[2024-05-23] MEDS ORDERED: VANCOMYCIN HCL 1,500 MG in SODIUM CHLORIDE 0.9% 500 ML IV ONE (19:45)
[2024-05-23] MEDS: INSULIN ASPART PER UNIT CHARGE SC SCH (20:03)
[2024-05-23] MEDS: MIRTAZAPINE TAB 15 MG TAB PO SCH (22:46)
[2024-05-23] MEDS: MELATONIN 3 MG TAB PO SCH (22:47)
[2024-05-23] MEDS: CLOPIDOGREL BISULFATE 75 MG TAB PO SCH (22:47)
[2024-05-23] MEDS: CHOLECALCIFEROL 125 MCG (5,000 UNITS) TAB PO SCH (22:48)
[2024-05-23] MEDS: ASPIRIN 81 MG ECTAB PO SCH (22:49)
[2024-05-23] MEDS: ATORVASTATIN 40 MG TAB PO SCH (22:49)
[2024-05-23] MEDS: amLODIPine BESYLATE 5 MG TAB PO SCH (22:49)
[2024-05-23] MEDS: ISOSORBIDE MONO EXTENDED REL 30 MG TABCR PO SCH (22:50)
[2024-05-23] MEDS: GABAPENTIN 600 MG TAB PO SCH (22:50)
[2024-05-23] MEDS: DULoxetine HCL 20 MG CAP PO SCH (22:50)
[2024-05-23] MEDS: oxyBUTYnin chloride 5 MG TAB PO SCH (22:51)
[2024-05-23] MEDS: rOPINIRole HCL 0.25 MG TABLET PO SCH (22:52)
[2024-05-23] MEDS: PANTOprazole 40 MG TAB PO SCH (22:52)
[2024-05-23] MEDS: DOCUSATE SODIUM 100 MG CAP PO SCH (23:00)
[2024-05-24] MEDS: METOPROLOL SUCC 50MG EXT REL TAB PO SCH (00:09)
[2024-05-24] MEDS: LANTUS PER UNIT CHARGE SQ SCH (00:44)
[2024-05-24 05:48] LABS: Basophils # (auto) 0.11 K/uL (0.00-0.20); Eosinophils % (auto) 4.7 %; Hematocrit (blood only) 34.1 % (37.0-47.0); Hemoglobin 10.9 g/dl (12.0-16.0); Immature Granulocytes # (auto) 0.04 K/uL (0.01-0.20); Immature Granulocytes % (auto) 0.4 %; Lymphocytes # (auto) 1.42 K/uL (1.20-3.40); Lymphocytes % (auto) 13.4 %; Mean Corpuscular Hemoglobin 30.9 pg (25.0-34.0); Mean Corpuscular Volume 96.6 fL (80.0-100.0); Mean Platelet Volume 10.2 fL (9.4-12.4); Monocytes # (auto) 0.79 K/uL (0.11-0.59); Monocytes % (auto) 7.5 %; Neutrophils # (auto) 7.71 K/uL (1.40-6.50); Platelet Count 214 K/uL (130-400); RDW Coefficient of Variation 14.4 % (11.5-14.5); RDW Standard Deviation 50.2 fL (36.4-46.3); Red Blood Count 3.53 M/uL (4.20-5.40); White Blood Count 10.57 K/ul (4.8-10.8)
[2024-05-24 06:03] LABS: Calcium 9.4 mg/dl (8.6-10.3); Creatinine Clr Calc Pharmacy 10.4 ml/min; Potassium 5.1 mmol/L (3.5-5.1)
[2024-05-24] MEDS: LEVOTHYROXINE SODIUM 50 MCG TABLET PO SCH (06:10)
[2024-05-24] MEDS: POLYETHYLENE (MIRALAX) 17 GM PACK PO SCH (08:56)
[2024-05-24] MEDS: DOCUSATE SODIUM/SENNA 50/8.6MG TAB PO SCH (08:56)
--- NOTE | 2024-05-24 09:52 | Pharmacy Report ---
Pharmacy PK ABX Note - Date of Service May 24, 2024 - Assessment and Plan Assessment * 73 year old F receiving cefepime and vancomycin for treatment of HD catheter infection. * Pertinent microbiologic data includes: outpatient blood cultures obtained [facility]. Inpatient blood cultures x2 pending. * ESRD - will dose via level instead of AUC * Unclear when next HD session will be w HD catheter infection. Likely holiday until at least Sunday. * Vanco dosing/levels and HD session(s) * 10/ PM: Vanco 1500 mg IV x1 * 05/24 AM: Vanco level of 20.8 mcg/mL * Level of 20.8 mcg/mL is at/near goal. Unlikely to clear a significant amount w/o HD, but also clearance is not known at this time. Will therefore re-order a level for tomorrow to determine patient-specific non-HD clearance Plan Vancomycin * Goal pre-HD level ~15-20 mcg/mL * Repeat random level tomorrow AM Pharmacy will continue to follow and will adjust dose/frequency as necessary. Thank you. Pharmacy has transitioned to AUC monitoring for vancomycin. AUC/TAMI is the preferred PK/PD target and is associated with decreased risk of nephrotoxicity compared to traditional trough targets.
[2024-05-24] MEDS: traMADol HCL 50 MG TABLET PO PRN (12:22)
--- NOTE | 2024-05-24 12:33 | Hospitalist Progress Note ---
Date of Service May 24, 2024 Assessment & Plan (1) Hemodialysis catheter infection: Plan: Recently replaced tunneled dialysis catheter left upper chest wall on April 15 of this year. Now with surrounding erythema. Suspected infection. Vancomycin and cefepime , day 2. Culture results are pending. Vascular surgery consultation requested and pending (2) End stage renal disease: Plan: [facility] nephrology consultation noted. Continue usual hemodialysis schedule. Serial labs (3) Hypertension: Plan: Stable. Continue current medical management (4) DM type 2 (diabetes mellitus, type 2): Plan: ADA diet. Continue basal insulin therapy. Sliding scale coverage as needed Plan Anticipate eventual return to [facility] hopefully sometime next week Admission and Anticipated Discharge Date Admission Date: May 23, 2024 Subjective Easily awakened from sleep. Oriented. No new problems. Nephrology consultation noted. Continue cefepime and vancomycin, day 2. Vascular surgery consultation pending Review of Systems 2 Review of Systems: Constitutionalno fever or chills ENTno blurred vision, no double vision, no epistaxis, no sore throat Respiratoryno cough, no wheezing, no shortness of breath Cardiacno palpitations, no chest pain, no syncope Liz nausea, vomiting, diarrhea, melena, hematochezia GUno urinary retention, no urinary incontinence, no dysuria, no hematuria Musculoskeletalno joint pain, no muscle tenderness Skinno bruising, no rashes, no pruritus Neurono isolated weakness, no paresthesia, no weakness Psychno depression, no anxiety Physical Exam 2 Physical Exam: General-alert and oriented x3, no fever, no chills HEENT-head atraumatic and normocephalic, pupils equal and reactive to light, extraocular muscles intact Neck-no lymphadenopathy or thyromegaly, trachea midline Chest-clear to auscultation. No rales, wheezing or rhonchi Cardiac-regular rate and rhythm, normal S1 and S2 Abdomen-normal bowel sounds, no hepatosplenomegaly Extremities-no cyanosis, clubbing, or edema Skintunneled dialysis catheter in place in the left upper anterior chest wall with surrounding erythema at the insertion site. No purulence seen. Neuro-cranial nerves II through XII intact, motor and sensory function within normal limits, strength symmetrical, no focal deficits Psych-normal affect, normal mood Results & Data Results & Data Vital Signs (Past 12 Hours) Vital Signs Temp Pulse Pulse Resp BP BP Pulse Ox 10/05/24 11:56 36.5 C 74 16 116/70 96 05/24/24 09:00 78 17 129/75 05/24/24 08:03 77 12 147/86 H 05/24/24 07:03 79 05/24/24 07:00 85 21 148/82 H 05/24/24 04:00 87 16 101/67 96 05/24/24 00:47 36.8 C 90 20 150/65 H 96 O2 Del Method 05/24/24 11:56 Room Air 05/24/24 09:00 05/24/24 08:03 05/24/24 07:03 05/24/24 07:00 05/24/24 04:00 05/24/24 00:47 Laboratory Results 05/24/24 05:04 05/24/24 05:04 PG Care Time/CCT Total # of Minutes Spent Total Time Spent with Patient: Total time spent is greater than 50% in coordination of care (as documented) at patient's floor/unit and/or counseling patient: Coding Level of Care Code 62189 SUB INP/OBS CARE 2/35MIN Diagnoses Hemodialysis catheter infection T82.7XXA End stage renal disease N18.6 Hypertension I10 DM type 2 (diabetes mellitus, type 2) E11.9
--- NOTE | 2024-05-24 14:02 | Nephrology Progress Note ---
Date of Service May 23, 2024 Subjective Made in error. See Consult note Results & Data Vital Signs (Past 12 Hours) Vital Signs Temp Pulse Resp BP BP Pulse Ox O2 Del Method 05/23/24 14:30 18 103/65 97 Room Air 05/23/24 12:48 20 96 05/23/24 12:48 93 H 20 96 Room Air 05/23/24 12:35 90 05/23/24 12:14 18 05/23/24 12:14 36.9 C 87 18 103/65 96
[2024-05-24] MEDS: CEFEPIME 1000MG 1,000 MG/10 ML SYR IV SCH (20:53)
[2024-05-25 06:17] LABS: Basophils # (auto) 0.09 K/uL (0.00-0.20); Basophils % (auto) 0.9 %; Eosinophils # (auto) 0.58 K/uL (0.00-0.50); Eosinophils % (auto) 5.8 %; Hematocrit (blood only) 31.8 % (37.0-47.0); Hemoglobin 10.6 g/dl (12.0-16.0); Immature Granulocytes # (auto) 0.03 K/uL (0.01-0.20); Immature Granulocytes % (auto) 0.3 %; Lymphocytes # (auto) 1.51 K/uL (1.20-3.40); Lymphocytes % (auto) 15.1 %; Mean Corpuscular Hemoglobin 31.1 pg (25.0-34.0); Mean Corpuscular Hgb Conc 33.3 g/dL (32.0-36.0); Mean Corpuscular Volume 93.3 fL (80.0-100.0); Mean Platelet Volume 10.3 fL (9.4-12.4); Neutrophils # (auto) 6.98 K/uL (1.40-6.50); Neutrophils % (auto) 69.9 %; Platelet Count 195 K/uL (130-400); RDW Coefficient of Variation 13.9 % (11.5-14.5); RDW Standard Deviation 46.9 fL (36.4-46.3); Red Blood Count 3.41 M/uL (4.20-5.40); White Blood Count 9.99 K/ul (4.8-10.8)
[2024-05-25 06:51] LABS: BUN Creatinine Ratio 9.4 (10-20); Calcium 8.8 mg/dl (8.6-10.3)
--- NOTE | 2024-05-25 09:23 | Pharmacy Report ---
Pharmacy PK ABX Note - Date of Service May 25, 2024 - Assessment and Plan Assessment * 73 year old F receiving cefepime and vancomycin for treatment of HD catheter infection. * Pertinent microbiologic data includes: outpatient blood cultures obtained [facility]. Inpatient blood cultures x2 pending. * ESRD - will dose via level instead of AUC * Unclear when next HD session will be w HD catheter infection. Likely holiday until at least Sunday. * Vanco dosing/levels and HD session(s) * 10/ PM: Vanco 1500 mg IV x1 * 05/24 AM: Vanco level of 20.8 mcg/mL * 05/25 AM: Vanco level of 16.3 mcg/mL * 05/25 AM: Vanco 500 mg IV x1 dose ordered * Patient-specific non-HD clearance is not insignificant, based on level trending down from 20.8 to 16.3 mcg/mL over ~24 hours without HD. Anticipate level may be subtherapeutic tomorrow, assuming similar 24 hour clearance today. Will therefore order small supplemental dose now. Plan Vancomycin * Goal pre-HD level ~15-20 mcg/mL * 500 mg IV x1 today, after level drawn * Repeat random level tomorrow AM Pharmacy will continue to follow and will adjust dose/frequency as necessary. Thank you. Pharmacy has transitioned to AUC monitoring for vancomycin. AUC/TAMI is the preferred PK/PD target and is associated with decreased risk of nephrotoxicity compared to traditional trough targets.
[2024-05-25] MEDS: VANCOMYCIN HCL 500 MG in NSS 100mL IV ONE (10:10)
[2024-05-25] MEDS: LANTUS PER UNIT CHARGE SQ ONE (10:10)
--- NOTE | 2024-05-25 14:02 | Hospitalist Progress Note ---
Date of Service May 25, 2024 Assessment & Plan (1) Hemodialysis catheter infection: Plan: Recently replaced tunneled dialysis catheter left upper chest wall on April 15 of this year. Now with surrounding erythema. Suspected infection. Vancomycin and cefepime , day 3. Blood cultures negative to date. Vascular surgery consultation requested and pending (2) End stage renal disease: Plan: [facility] nephrology consultation noted. Continue usual hemodialysis schedule. Serial labs (3) Hypertension: Plan: Stable. Continue current medical management (4) DM type 2 (diabetes mellitus, type 2): Plan: ADA diet. Continue basal insulin therapy. Insulin dose uptitrated todayMay 25. Sliding scale coverage as needed Plan Anticipate eventual return to [facility] hopefully sometime next week Admission and Anticipated Discharge Date Admission Date: May 23, 2024 Subjective Alert and oriented. No new problems. She is asking to have a bagel with her breakfast. Glucose 213 and insulin uptitrated todayMay 25. Creatinine 6.8 and potassium 5.0. Nephrology consultation and recommendations appreciated. Vascular surgery consultation is pending. She remains on cefepime and vancomycin, day 3. Less erythema noted at the TDC insertion site left chest wall Review of Systems 2 Review of Systems: Constitutionalno fever or chills ENTno blurred vision, no double vision, no epistaxis, no sore throat Respiratoryno cough, no wheezing, no shortness of breath Cardiacno palpitations, no chest pain, no syncope Liz nausea, vomiting, diarrhea, melena, hematochezia GUno urinary retention, no urinary incontinence, no dysuria, no hematuria Musculoskeletalno joint pain, no muscle tenderness Skinno bruising, no rashes, no pruritus Neurono isolated weakness, no paresthesia, no weakness Psychno depression, no anxiety Physical Exam 2 Physical Exam: General-alert and oriented x3, no fever, no chills HEENT-head atraumatic and normocephalic, pupils equal and reactive to light, extraocular muscles intact Neck-no lymphadenopathy or thyromegaly, trachea midline Chest-clear to auscultation. No rales, wheezing or rhonchi Cardiac-regular rate and rhythm, normal S1 and S2 Abdomen-normal bowel sounds, no hepatosplenomegaly Extremities-no cyanosis, clubbing, or edema Skintunneled dialysis catheter in place in the left upper anterior chest wall with surrounding erythema at the insertion site. No purulence seen. Neuro-cranial nerves II through XII intact, motor and sensory function within normal limits, strength symmetrical, no focal deficits Psych-normal affect, normal mood Results & Data Results & Data Vital Signs (Past 12 Hours) Vital Signs Temp Pulse Resp BP Pulse Ox O2 Del Method 05/25/24 07:51 36.4 C L 78 16 129/73 94 Room Air Laboratory Results 05/25/24 05:57 05/25/24 05:57 PG Care Time/CCT Total # of Minutes Spent Total Time Spent with Patient: Total time spent is greater than 50% in coordination of care (as documented) at patient's floor/unit and/or counseling patient: Coding Level of Care Code 78498 SUB INP/OBS CARE 3/50MIN Diagnoses Hemodialysis catheter infection T82.7XXA End stage renal disease N18.6 Hypertension I10 DM type 2 (diabetes mellitus, type 2) E11.9
--- NOTE | 2024-05-25 15:54 | Nephrology Progress Note ---
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 this is 3rd time CVC needs to be out as soon as possible. Blood C/s negative. She did get Blood C/s done at [facility] dialysis--result wont be back till sunday. Iv vancomycin and Iv Cefepime to cover Gram +ve and gram -ve. vascular yet to do formal Consult about CVC removal but has told wont happen in the weekend patient is without symptoms and Not septic. (2) End stage renal disease: No e/o fluid overload and lytes are fine. She should be able to handle no dialysis for next 3-4 days. S--feels totally fine. reading newspaper. exam: Awake and alert. No distress. Chest Clear. CV--S1 and s2 regular. Abd--Soft non tender. Ext--No edema. Dialysis Exit site: Slight redness Results & Data Vital Signs (Past 12 Hours) Vital Signs Temp Pulse Resp BP BP Pulse Ox O2 Del Method 05/25/24 15:35 36.4 C L 80 16 130/68 97 Room Air 05/25/24 07:51 36.4 C L 78 16 129/73 94 Room Air
[2024-05-26 05:42] LABS: Eosinophils # (auto) 0.47 K/uL (0.00-0.50); Eosinophils % (auto) 4.8 %; Hematocrit (blood only) 32.7 % (37.0-47.0); Hemoglobin 10.9 g/dl (12.0-16.0); Immature Granulocytes # (auto) 0.04 K/uL (0.01-0.20); Immature Granulocytes % (auto) 0.4 %; Lymphocytes # (auto) 1.31 K/uL (1.20-3.40); Lymphocytes % (auto) 13.5 %; Mean Corpuscular Hemoglobin 31.3 pg (25.0-34.0); Mean Corpuscular Hgb Conc 33.3 g/dL (32.0-36.0); Mean Platelet Volume 10.3 fL (9.4-12.4); Monocytes # (auto) 0.61 K/uL (0.11-0.59); Monocytes % (auto) 6.3 %; Neutrophils # (auto) 7.18 K/uL (1.40-6.50); Platelet Count 186 K/uL (130-400); RDW Coefficient of Variation 13.9 % (11.5-14.5); RDW Standard Deviation 46.7 fL (36.4-46.3); Red Blood Count 3.48 M/uL (4.20-5.40); White Blood Count 9.71 K/ul (4.8-10.8)
[2024-05-26 05:59] LABS: BUN Creatinine Ratio 9.9 (10-20); Calcium 8.7 mg/dl (8.6-10.3); Creatinine Clr Calc Pharmacy 6.7 ml/min; Potassium 4.7 mmol/L (3.5-5.1)
[2024-05-26] MEDS ORDERED: SODIUM CHLORIDE 0.9% 1,000 ML IV PRN (07:00)
[2024-05-26] MEDS: CALCIUM ACETATE 667 MG CAP/TAB PO SCH (08:29)
--- NOTE | 2024-05-26 10:41 | Consultation ---
Date of Consultation May 26, 2024 Assessment & Plan (1) End stage renal disease on dialysis: Pt with functioning L IJ permcath for HD. No sign of infection at this time, blood cultures negative. Discussed at length with Dr Womack. SHe is currently scheduled for LUE AV graft placement later this week, will proceed as scheduled. Please call if further sign of infection occurs. Due to concern of possible infection, will cancel fistula creation this week and remove permcath sunday. ejs History of Present Illness Reason for Consultation: possible permcath infection Attending Physician: Valorie Ng MD History of Present Illness 73 yo f with hx of ESRD on HD, lumbar radiculopathy, GERD, depression, DMII, hypothyroidism, hyperlipidemia, arthritis, HTN, chronic anemia, admitted with possible permcath infection. Pt states she has been feeling fine, but at HD on Sunday the nurses became concerned about seeing some redness at the exit site so they sent her to [facility]. Pt denies any fever, pain over catheter, problems using catheter. Pt denies MANNING, chest pain, SOB, abd pain, N/V, rest pain, claudication, other complaints. Blood cultures negative. Allergies Allergy/AdvReac Type Severity Reaction Status Date / Time meperidine Allergy Intermediate hypotension-passed Verified 05/21/24 10:49 out Home Medications Medication Instructions Recorded Confirmed Type cholecalciferol (vitamin D3) 125 125 mcg PO QPM 04/20/22 05/23/24 History mcg (5,000 unit) tablet (Vitamin D3) atorvastatin 40 mg tablet 40 mg PO HS 07/23/22 05/23/24 History docusate sodium 100 mg capsule 100 mg PO BID 07/23/22 05/23/24 History insulin aspar prot-insulin aspart 40 unit subcut UD 07/23/22 05/23/24 History 100 unit/mL (70-30) subcutaneous pen (Novolog Mix 70-30FlexPen U-100) isosorbide mononitrate 30 mg 30 mg PO QPM 07/23/22 05/23/24 History tablet,extended release 24 hr levothyroxine 50 mcg tablet 50 mcg PO DAILY 07/23/22 05/23/24 History metoprolol succinate 50 mg 50 mg PO QPM 07/23/22 05/23/24 History tablet,extended release 24 hr duloxetine 20 mg capsule,delayed 20 mg PO QPM 05/18/23 05/23/24 History release ropinirole 0.25 mg tablet 0.25 mg PO HS 05/18/23 05/23/24 History acetaminophen 325 mg tablet 650 mg PO Q6 PRN TEMP > 100 04/09/24 05/23/24 History amlodipine 5 mg tablet 10 mg PO QPM 04/09/24 05/23/24 History calcium acetate 667 mg tablet 1,334 mg PO UD 04/09/24 05/23/24 History ferric citrate 210 mg iron tablet 210 mg PO WM 04/09/24 05/23/24 History (Auryxia) gabapentin 100 mg capsule 100 mg PO UD 04/09/24 05/23/24 History gabapentin 600 mg tablet 600 mg PO QPM 04/09/24 05/23/24 History mirtazapine 7.5 mg tablet 7.5 mg PO HS 04/09/24 05/23/24 History ondansetron 4 mg disintegrating 4 mg PO Q6H PRN Nausea And Vomiting 04/09/24 05/23/24 History tablet pantoprazole 40 mg tablet,delayed 40 mg PO HS 04/09/24 05/23/24 History release polyethylene glycol 3350 17 17 g PO AMHS 04/09/24 05/23/24 History gram/dose oral powder (Miralax) sennosides 8.6 mg-docusate sodium 1 tab-cap PO UD 04/09/24 05/23/24 History 50 mg tablet (Senokot-S) sennosides 8.6 mg-docusate sodium 1 tab-cap PO UD 04/09/24 05/23/24 History 50 mg tablet (Senokot-S) insulin lispro 100 unit/mL 1 sliding scale dose subcut UD 05/21/24 05/23/24 History subcutaneous solution melatonin 5 mg tablet 10 mg PO HS 05/21/24 05/23/24 History oxybutynin chloride 2.5 mg tablet 2.5 mg PO QPM 05/21/24 05/23/24 History tramadol 50 mg tablet 50 mg PO Q4H PRN Pain 5-10 05/21/24 05/23/24 History acetaminophen 325 mg tablet 650 mg PO Q6 PRN .PAIN 1-4 05/23/24 05/23/24 History albuterol sulfate 2.5 mg/3 mL 2.5 mg inhalation Q4H PRN 05/23/24 05/23/24 History (0.083 %) solution for nebulization Shortness Of Breath Or Wheezing calcium acetate 667 mg tablet 667 mg PO . NEEDED PRN SNACKS 05/23/24 05/23/24 History ciprofloxacin HCl 250 mg tablet 250 mg PO QPM 05/23/24 05/23/24 History protein supplement 1 ea PO BID 05/23/24 05/23/24 History Patient History Medical History Obesity History of recent hospitalization 04/09-04/17/24 [facility]; admitted for hyperkalemia and malfunctioning port (hyperkalemia resolved prior to D/C, had new tunneled HD cath placed); D/C to SNF Diabetic neuropathy Breakdown (mechanical) of vascular dialysis catheter, subsequent encounter Other complication of vascular dialysis catheter, subsequent encounter Nondisplaced intertrochanteric fracture of left femur, subsequent encounter for closed fracture with routine healing 05/2024 [facility] admission; observation by ortho/pt/ot Other abnormalities of gait and mobility Cognitive communication deficit per chart review; unable to get further info from SNF Dysphagia, oral phase Muscle weakness (generalized) Radiculopathy, lumbar region Anemia Other specified diabetes mellitus with diabetic nephropathy IDDM GERD without esophagitis Hypothyroidism Personal history of transient ischemic attack (TIA), and cerebral infarction without residual deficits Hyperlipidemia Hypertensive chronic kidney disease Weakness Major depressive disorder retirement (current) use of insulin Pneumonitis due to inhalation of food and vomit 05/2023 [facility] admission Dependence on renal dialysis hemodialysis done on site at [facility] w/ [facility] M/W/F ESRD (end stage renal disease) on dialysis hemodialysis done on site at [facility] w/ [facility] Ambulatory dysfunction per chart review, 'mostly uses WC and can stand with assistance' Dyspnea on exertion Exertional chest pain 2021 Surgical History History of vascular surgery removal CAPD catheter 05/31/23: GA: MAC#3, ETT#7.0, Gr View 1, atraumatic x 1 S/P partial hysterectomy S/P cholecystectomy S/P arthroscopic knee surgery H/O hand surgery 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 Family History Other Cancer Social History Smoking Status: Never smoker Hx Alcohol Use: No Hx Substance Use: No Preferred Language: Taiwanese Communication Ability: Impaired Electrolytic De Scaler Required: No Beliefs That Will Affect Care: None marital status: / Current Living Situation: Care Home Current Living Situation Comment: [facility] Feels Safe at Home: Yes Assistive Devices: Oxygen - at Night, Walker and Wheelchair Review of Systems Review of Systems: All systems reviewed & are unremarkable except as noted in HPI & below Physical Exam Constitutional: WD/WN, vitals as above cooperative and comfortable; not in distress Respiratory: normal respiratory effort, lungs clear to auscultation Auscultation: + diminished lung sounds Cardiovascular: Rate/Rhythm: regular rate and regular rhythm Vessels: posterior tibial pulses present, dorsalis pedis pulses present and radial pulses present; + abnormal peripheral pulses Extremities: normal capillary refill; no edema Chest (Breasts): Chest: + vascular access device or port (no erythema, warmth, drainage, or tenderness) Gastrointestinal (Abdomen): Inspection/Auscultation: abdomen normal to inspection and normal bowel sounds Percussion/Palpation: abdomen soft; abdomen nontender Musculoskeletal: no cyanosis or clubbing, extremities motor strength 5/5 Skin: no rashes, warm and dry Neurologic: moves all extremities and awake; no focal motor deficits and not confused Psychiatric: A+Ox3, euthymic affect Results & Data Vital Signs (Past 12 Hours) Vital Signs Temp Pulse Resp BP Pulse Ox O2 Del Method 05/26/24 07:17 36.3 C L 84 16 130/69 93 Room Air
--- NOTE | 2024-05-26 10:52 | Nephrology Progress Note ---
Date of Service May 26, 2024 Assessment & Plan (1) Hemodialysis catheter infection: Plan: Recurrent exit site infection w/ purulent drainage and redness at exit site 05/23. this is the 3rd time; second one in 6 wks. Woke today w/ TDC dressing off so likely to be an ongoing issue. Clinically stable; no evidence of metastatic infection. Blood cxs negative 05/23 at [facility] and ES swab w/ heavy skin vivienne on preliminary culture result at [facility]. Due for AVG placement 05/29. DIANN management usually (per up to date by Suresh Adams MD last updated 07/2023): -CVC out SANDIE w/ cath tip cx and line holiday; replace TDC at 48 hrs if negative cxs; 3 wks of abtx -currently on vancomycin and Cefepime to cover Gram +ve and gram -ve > vanco/ceftaz would be sufficient and can be given last hour of HD -this would delay AVG placement for another 6 wks and concern she could have yet another ES infection same timeframe -this is the approach I recommend Alternatives since she looks/feels well and ES no longer draining or red nor has it been this admission AND since she's at significant risk for another DIANN next 6 wks include -attempt line salvage and place AVG 05/29 >> vascular understandably states cannot place AVG if treating for infection, so abtx would have to be stopped; do not recommend Care coordinated w/ Dr Ng and w/ vascular service; they cannot remove TDC today > would have to be tomorrow if we go that route; hospitalist considering inf dzs consult which is reasonable. -await ID input -NPO at [facility] (2) End stage renal disease: Plan: No e/o fluid overload except mild hyponatremia Na 130 today and lytes are fine. She should be able to handle no dialysis for 3-4 days. Next HD on 05/28 or 05/29 as access permits/clinical status requires hgb 10.9; for 10K epo today which is acceptable as anticipate epo resistance here (3) Urine culture positive: Plan: had brown foul smelling urine approx 05/19 or 05/20 (does not void daily) w/ no dysuria, urgency, frequency, or constitutional symptoms >> urine cx obtained with a HAT per pt was positive and per OP senior piping designer she started cipro po 05/22; cx results not available do not consider this active UTI; Admission and Anticipated Discharge Date Admission Date: May 23, 2024 Subjective seen and evaluated on dialysis. exit site today slightly red, non tender, some fine crust, no purulence; pt did wake up this AM w/ no TDC dressing in place; floor RN placed 2 x 2 and sent to dialysis. vascular c/s pending. pt denies n/v/malaise, f/c, sob, dysuria, edema. Assessment & Plan (1) Hemodialysis catheter infection: Recurrent exit site infection. this is 3rd time CVC needs to be out as soon as possible. Blood C/s negative. She did get Blood C/s done at [facility] dialysis--result wont be back till sunday. Iv vancomycin and Iv Cefepime to cover Gram +ve and gram -ve. vascular yet to do formal Consult about CVC removal but has told wont happen in the weekend patient is without symptoms and Not septic. (2) End stage renal disease: No e/o fluid overload and lytes are fine. She should be able to handle no dialysis for next 3-4 days. S--feels totally fine. reading newspaper. exam: Awake and alert. No distress. Chest Clear. CV--S1 and s2 regular. Abd--Soft non tender. Ext--No edema. Dialysis Exit site: Slight redness Review of Systems 2 Review of Systems: All systems reviewed & are unremarkable except as noted in Subjective Physical Exam 2 Constitutional: well developed and well nourished ENMT: Ears: + hearing impairment Mouth: + dry oral mucous membranes Respiratory: normal respiratory effort Auscultation: + diminished lung sounds Gastrointestinal (Abdomen): Inspection/Auscultation: normal bowel sounds P ercussion/Palpation: abdomen soft; abdomen nontender Musculoskeletal: Extremities: strength 5/5 throughout Skin: no rashes, warm and dry Neurologic: babcock, fluent speech, no tremor Results & Data Vital Signs (Past 12 Hours) Vital Signs Temp Pulse Resp BP Pulse Ox O2 Del Method 05/26/24 07:17 36.3 C L 84 16 130/69 93 Room Air Laboratory Results 05/26/24 05:26 05/26/24 05:26 DAVITA CULTURES 05/23/24 exit site swab (prelim) heavy growth of skin vivienne blood cxs 2 sets NGTD
[2024-05-26] MEDS: EPOETIN ALFA 10,000 UNITS/ML VIAL IV ONE (13:01)
--- NOTE | 2024-05-26 14:24 | Pharmacy Report ---
Pharmacy PK ABX Note - Date of Service May 26, 2024 - Assessment and Plan Assessment 05/26 * Predialysis vanco level today was 21.2mcg/ml, vancomycin 500mg iv x 1 has been ordered to be given after dialysis today. * Blood cultures from 05/23 are negative (still preliminary). 05/25 * 73 year old F receiving cefepime and vancomycin for treatment of HD catheter infection. 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 Inpatient blood cultures x2 pending. * ESRD - will dose via level instead of AUC * Unclear when next HD session will be w HD catheter infection. Likely holiday until at least Sunday. * Vanco dosing/levels and HD session(s) * 05/23 PM: Vanco 1500 mg IV x1 * 05/24 AM: Vanco level of 20.8 mcg/mL * 05/25 AM: Vanco level of 16.3 mcg/mL * 05/25 AM: Vanco 500 mg IV x1 dose ordered * Patient-specific non-HD clearance is not insignificant, based on level trending down from 20.8 to 16.3 mcg/mL over ~24 hours without HD. Anticipate level may be subtherapeutic tomorrow, assuming similar 24 hour clearance today. Will therefore order small supplemental dose now. Plan Vancomycin * 500 mg IV x1 today after dialysis session * Repeat random level 05/28 with morning labs Pharmacy will continue to follow and will adjust dose/frequency as necessary. Thank you. Pharmacy has transitioned to AUC monitoring for vancomycin. AUC/TAMI is the preferred PK/PD target and is associated with decreased risk of nephrotoxicity compared to traditional trough targets.
--- NOTE | 2024-05-26 15:26 | Infectious Disease Consult ---
Date of Consultation May 26, 2024 Assessment & Plan (1) End stage renal disease on dialysis: (2) Hemodialysis catheter infection: Plan This is a 73-year-old female with past medical history of ESRD requiring on HD via tunneled catheter Sunday since11/2022 ( previously on peritoneal dialysis) , HD catheter malfunction * 2 sp exhange ( 10/2023, 03/2024) pending AV graft presents for possible HD exit site infection. She was referred to the ED from HD for exit site erythema and purulence and IV anitibiotics and vascular evaluaiotn.. Pt is a poor historian, bt endorses recent HD catheter exchange in March. She denies recent HD malfunction, fever, chills, sweats, nausea, vomiting. In the ED afebrile, heart rate 87, RR 18, BP 103/65, O2 sats 96% on room air. Labs: WBC 10.57, BUN 19, creatinine 3.66 procalcitonin 0.51 chest x-ray no active disease. She was started on IV vancomycin and cefepime. ID consulted possible HD site infection. Blood cultures NGTD. Results of wound culture obtained at Dialysis center prior to admission, not available to me. Patient seen during HD. She is comfortable. She offers no complaints. Left HD catheter still in place. Microbiology: Blood cultures 05/23 NGTD Antibiotics Cefepime 05/23ongoing Vancomycin 05/23ongoing # Possible exit site TDC infection ( skin erythema and purulent drainage per report,05/23) - No associated bacteremia so far - Wound cx obtained on 05/23 at HD ( results not available) - pending AVG # History of HD site catheter malfunction *2 s/p exchange ( 10/2023 and 03/2024) Discussion: No purulence or erythema at TDC site on my exam , however incomplete exam as pt was seen during HD while TDC in use. It is reassuring that she is not currently bacteremic, but given the recurrence of TDC exit site infections/ malfunctions per report, agree with line removal . Exit-site infection cannot be resolved with systemic antibiotics. The TDC should be removed and the subsequent catheter placed using a different site once BC clear Recommendations Continue IV vancomycin per protocol and HD dosing of Cefepime Monitor BC for 72 hours prior to replacing line at a different siter Anticipate 2-3 weeks of pathogen targeted Abx, if no bacteremia and if not growing staph aureus from wound culture Follow up wound culture results that were obtained at HD center Thank you for this consult. ID will continue to follow Jase Troy MD, MPH Infectious Disease [facility], ID [facility] Call [phone] with questions Consultation Information Consultation was provided via telemedicine using two-way real-time interactive telecommunication between the patient and the telemedicine provider. For the duration of the visit, the provider was performing the assessment from a different facility than the patient. This includesuse of bluetooth stethoscope forauscultationperformed by the telepresenter that the telemedicine provider can hear if described in the physical exam. Commercial Pest Control Technician contact information: Please call [facility] Call Center . (Phone Number For Physician Use Only) After establishing a telemedicine visit, patient was: Patient was verified with two unique identifiers Time Spent with Patient: Initial => 75 min History of Present Illness Reason for Consultation: Infected HD catheter Requesting Physician: Valorie Ng MD Attending Physician: Valorie Ng MD History of Present Illness This is a 73-year-old female with past medical history of ESRD requiring on HD via tunneled catheter Sunday since11/2022 ( previously on peritoneal dialysis) , HD catheter malfunction * 2 sp exhange ( 10/2023, 03/2024) pending AV graft presents for possible HD exit site infection. She was referred to the ED from HD for exit site erythema and purulence and IV anitibiotics and vascular evaluaiotn.. Pt is a poor historian, bt endorses recent HD catheter exchange in March. She denies recent HD malfunction, fever, chills, sweats, nausea, vomiting. In the ED afebrile, heart rate 87, RR 18, BP 103/65, O2 sats 96% on room air. Labs: WBC 10.57, BUN 19, creatinine 3.66 procalcitonin 0.51 chest x-ray no active disease. She was started on IV vancomycin and cefepime. ID consulted possible HD site infection. Blood cultures NGTD. Results of wound culture obtained at Dialysis center prior to admission, not available to me. Patient seen during HD. She is comfortable. She offers no complaints. Left HD catheter still in place. Allergies Allergy/AdvReac Type Severity Reaction Status Date / Time meperidine Allergy Intermediate hypotension-passed Verified 05/21/24 10:49 out Home Medications Medication Instructions Recorded Confirmed Type cholecalciferol (vitamin D3) 125 125 mcg PO QPM 04/20/22 05/23/24 History mcg (5,000 unit) tablet (Vitamin D3) atorvastatin 40 mg tablet 40 mg PO HS 07/23/22 05/23/24 History docusate sodium 100 mg capsule 100 mg PO BID 07/23/22 05/23/24 History insulin aspar prot-insulin aspart 40 unit subcut UD 07/23/22 05/23/24 History 100 unit/mL (70-30) subcutaneous pen (Novolog Mix 70-30FlexPen U-100) isosorbide mononitrate 30 mg 30 mg PO QPM 07/23/22 05/23/24 History tablet,extended release 24 hr levothyroxine 50 mcg tablet 50 mcg PO DAILY 07/23/22 05/23/24 History metoprolol succinate 50 mg 50 mg PO QPM 07/23/22 05/23/24 History tablet,extended release 24 hr duloxetine 20 mg capsule,delayed 20 mg PO QPM 05/18/23 05/23/24 History release ropinirole 0.25 mg tablet 0.25 mg PO HS 05/18/23 05/23/24 History acetaminophen 325 mg tablet 650 mg PO Q6 PRN TEMP > 100 04/09/24 05/23/24 History amlodipine 5 mg tablet 10 mg PO QPM 04/09/24 05/23/24 History calcium acetate 667 mg tablet 1,334 mg PO UD 04/09/24 05/23/24 History ferric citrate 210 mg iron tablet 210 mg PO WM 04/09/24 05/23/24 History (Auryxia) gabapentin 100 mg capsule 100 mg PO UD 04/09/24 05/23/24 History gabapentin 600 mg tablet 600 mg PO QPM 04/09/24 05/23/24 History mirtazapine 7.5 mg tablet 7.5 mg PO HS 04/09/24 05/23/24 History ondansetron 4 mg disintegrating 4 mg PO Q6H PRN Nausea And Vomiting 04/09/24 05/23/24 History tablet pantoprazole 40 mg tablet,delayed 40 mg PO HS 04/09/24 05/23/24 History release polyethylene glycol 3350 17 17 g PO AMHS 04/09/24 05/23/24 History gram/dose oral powder (Miralax) sennosides 8.6 mg-docusate sodium 1 tab-cap PO UD 04/09/24 05/23/24 History 50 mg tablet (Senokot-S) sennosides 8.6 mg-docusate sodium 1 tab-cap PO UD 04/09/24 05/23/24 History 50 mg tablet (Senokot-S) insulin lispro 100 unit/mL 1 sliding scale dose subcut UD 05/21/24 05/23/24 History subcutaneous solution melatonin 5 mg tablet 10 mg PO HS 05/21/24 05/23/24 History oxybutynin chloride 2.5 mg tablet 2.5 mg PO QPM 05/21/24 05/23/24 History tramadol 50 mg tablet 50 mg PO Q4H PRN Pain 5-10 05/21/24 05/23/24 History acetaminophen 325 mg tablet 650 mg PO Q6 PRN .PAIN 1-4 05/23/24 05/23/24 History albuterol sulfate 2.5 mg/3 mL 2.5 mg inhalation Q4H PRN 05/23/24 05/23/24 History (0.083 %) solution for nebulization Shortness Of Breath Or Wheezing calcium acetate 667 mg tablet 667 mg PO . NEEDED PRN SNACKS 05/23/24 05/23/24 History ciprofloxacin HCl 250 mg tablet 250 mg PO QPM 05/23/24 05/23/24 History protein supplement 1 ea PO BID 05/23/24 05/23/24 History Patient History Medical History Obesity History of recent hospitalization 04/09-04/17/24 [facility]; admitted for hyperkalemia and malfunctioning port (hyperkalemia resolved prior to D/C, had new tunneled HD cath placed); D/C to [facility] Diabetic neuropathy Breakdown (mechanical) of vascular dialysis catheter, subsequent encounter Other complication of vascular dialysis catheter, subsequent encounter Nondisplaced intertrochanteric fracture of left femur, subsequent encounter for closed fracture with routine healing 05/2024 [facility] admission; observation by ortho/pt/ot Other abnormalities of gait and mobility Cognitive communication deficit per chart review; unable to get further info from SNF Dysphagia, oral phase Muscle weakness (generalized) Radiculopathy, lumbar region Anemia Other specified diabetes mellitus with diabetic nephropathy IDDM GERD without esophagitis Hypothyroidism Personal history of transient ischemic attack (TIA), and cerebral infarction without residual deficits Hyperlipidemia Hypertensive chronic kidney disease Weakness Major depressive disorder alf (current) use of insulin Pneumonitis due to inhalation of food and vomit 05/2023 [facility] admission Dependence on renal dialysis hemodialysis done on site at [facility] w/ Angeli M/W/F ESRD (end stage renal disease) on dialysis hemodialysis done on site at [facility] w/ [facility] Ambulatory dysfunction per chart review, 'mostly uses WC and can stand with assistance' Dyspnea on exertion Exertional chest pain 2021 Surgical History History of vascular surgery removal CAPD catheter 05/31/23: GA: MAC#3, ETT#7.0, Gr View 1, atraumatic x 1 S/P partial hysterectomy S/P cholecystectomy S/P arthroscopic knee surgery H/O hand surgery 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 Pertinent positives per HPI. Physical Exam Physical Exam: General- NAD, chronically ill appearing. Getting HD Neck supple HEENT- anicteric sclera Chest- L upper chest tunneled catheter; currently being used during HD. No erythema but catheter partially dressed being used, so can not evaluate completely Abd- soft, not tender, not distended Extremities- Mild LE edema Neuro- AAO*3 Psych- cooperative , normal mood. . Results & Data Vital Signs (Past 12 Hours) Vital Signs Temp Pulse Pulse Pulse Resp BP BP 05/26/24 14:47 36.6 C 81 05/26/24 14:26 36.4 C L 74 16 105/60 05/26/24 14:00 81 123/71 05/26/24 13:30 78 130/74 05/26/24 13:00 79 112/69 05/26/24 12:30 77 124/66 05/26/24 12:00 79 102/64 05/26/24 11:30 78 116/65 05/26/24 11:00 82 109/58 L 05/26/24 10:32 79 113/59 L 05/26/24 10:25 36.3 C L 81 05/26/24 07:17 36.3 C L 84 16 130/69 BP Pulse Ox O2 Del Method 05/26/24 14:47 139/78 05/26/24 14:26 96 Room Air 05/26/24 14:00 05/26/24 13:30 05/26/24 13:00 05/26/24 12:30 05/26/24 12:00 05/26/24 11:30 05/26/24 11:00 05/26/24 10:32 05/26/24 10:25 05/26/24 07:17 93 Room Air Laboratory Results Laboratory Results - last 48 hr 05/24/24 05/24/24 05/25/24 16:39 20:24 05:57 WBC 9.99 RBC 3.41 L Hgb 10.6 L Hct 31.8 L MCV 93.3 MCH 31.1 MCHC 33.3 RDW Std Deviation 46.9 H RDW Coeff of Bethany 13.9 Plt Count 195 MPV 10.3 Immature Gran % (Auto) 0.3 Neut % (Auto) 69.9 Lymph % (Auto) 15.1 Borden % (Auto) 8.0 Eos % (Auto) 5.8 Baso % (Auto) 0.9 Neut # (Auto) 6.98 H Lymph # (Auto) 1.51 Borden # (Auto) 0.80 H Eos # (Auto) 0.58 H Baso # (Auto) 0.09 Immature Gran # (Auto) 0.03 Sodium 132 L Potassium 5.0 Chloride 94 L Carbon Dioxide 26 Anion Gap 12 H BUN 65 H D Creatinine 6.89 H* D Est Cr Clr Drug Dosing 8.0 eGFR 5.91 BUN/Creatinine Ratio 9.4 L Glucose 213 H POC Glucose 209 H 269 H Calcium 8.8 Random Vancomycin 16.3 05/25/24 05/25/24 05/25/24 07:55 11:47 16:38 WBC RBC Hgb Hct MCV MCH MCHC RDW Std Deviation RDW Coeff of Bethany Plt Count MPV Immature Gran % (Auto) Neut % (Auto) Lymph % (Auto) Borden % (Auto) Eos % (Auto) Baso % (Auto) Neut # (Auto) Lymph # (Auto) Borden # (Auto) Eos # (Auto) Baso # (Auto) Immature Gran # (Auto) Sodium Potassium Chloride Carbon Dioxide Anion Gap BUN Creatinine Est Cr Clr Drug Dosing eGFR BUN/Creatinine Ratio Glucose POC Glucose 182 H 201 H 219 H Calcium Random Vancomycin 05/25/24 05/26/24 05/26/24 20:57 05:26 07:37 WBC 9.71 RBC 3.48 L Hgb 10.9 L Hct 32.7 L MCV 94.0 MCH 31.3 MCHC 33.3 RDW Std Deviation 46.7 H RDW Coeff of Bethany 13.9 Plt Count 186 MPV 10.3 Immature Gran % (Auto) 0.4 Neut % (Auto) 74.0 Lymph % (Auto) 13.5 Borden % (Auto) 6.3 Eos % (Auto) 4.8 Baso % (Auto) 1.0 Neut # (Auto) 7.18 H Lymph # (Auto) 1.31 Borden # (Auto) 0.61 H Eos # (Auto) 0.47 Baso # (Auto) 0.10 Immature Gran # (Auto) 0.04 Sodium 130 L Potassium 4.7 Chloride 93 L Carbon Dioxide 24 Anion Gap 13 H BUN 82 H Creatinine 8.26 H* D Est Cr Clr Drug Dosing 6.7 eGFR 4.75 BUN/Creatinine Ratio 9.9 L Glucose 208 H POC Glucose 194 H 221 H Calcium 8.7 Random Vancomycin 21.2 H 05/26/24 14:31 WBC RBC Hgb Hct MCV MCH MCHC RDW Std Deviation RDW Coeff of Bethany Plt Count MPV Immature Gran % (Auto) Neut % (Auto) Lymph % (Auto) Borden % (Auto) Eos % (Auto) Baso % (Auto) Neut # (Auto) Lymph # (Auto) Borden # (Auto) Eos # (Auto) Baso # (Auto) Immature Gran # (Auto) Sodium Potassium Chloride Carbon Dioxide Anion Gap BUN Creatinine Est Cr Clr Drug Dosing eGFR BUN/Creatinine Ratio Glucose POC Glucose 190 H Calcium Random Vancomycin Diagnostic Findings Microbiology 05/23/24 15:11 Blood Aerobic Blood Culture - Preliminary No growth in Aerobic bottle after 48 hours. 05/23/24 15:11 Blood Anaerobic Blood Culture - Preliminary No growth in Anaerobic bottle after 48 hours. 05/23/24 12:55 Blood Aerobic Blood Culture - Preliminary No growth in Aerobic bottle after 48 hours. 05/23/24 12:55 Blood Anaerobic Blood Culture - Preliminary No growth in Anaerobic bottle after 48 hours. Medications Administered Home Medications Medication Instructions Recorded Confirmed Last Taken cholecalciferol (vitamin D3) 125 125 mcg PO QPM 04/20/22 05/23/24 05/22/24 mcg (5,000 unit) tablet (Vitamin D3) atorvastatin 40 mg tablet 40 mg PO HS 07/23/22 05/23/24 05/22/24 docusate sodium 100 mg capsule 100 mg PO BID 07/23/22 05/23/24 05/23/24 insulin aspar prot-insulin aspart 40 unit subcut UD 07/23/22 05/23/24 04/08/24 100 unit/mL (70-30) subcutaneous pen (Novolog Mix 70-30FlexPen U-100) isosorbide mononitrate 30 mg 30 mg PO QPM 07/23/22 05/23/24 05/22/24 tablet,extended release 24 hr levothyroxine 50 mcg tablet 50 mcg PO DAILY 07/23/22 05/23/24 05/23/24 metoprolol succinate 50 mg 50 mg PO QPM 07/23/22 05/23/24 05/22/24 tablet,extended release 24 hr duloxetine 20 mg capsule,delayed 20 mg PO QPM 05/18/23 05/23/24 05/22/24 release ropinirole 0.25 mg tablet 0.25 mg PO HS 05/18/23 05/23/24 05/22/24 acetaminophen 325 mg tablet 650 mg PO Q6 PRN TEMP > 100 04/09/24 05/23/24 Unknown amlodipine 5 mg tablet 10 mg PO QPM 04/09/24 05/23/24 05/22/24 calcium acetate 667 mg tablet 1,334 mg PO 04/09/24 05/23/24 05/23/24 ferric citrate 210 mg iron tablet 210 mg PO 04/09/24 05/23/24 04/08/24 (Auryxia) gabapentin 100 mg capsule 100 mg PO 04/09/24 05/23/24 05/21/24 gabapentin 600 mg tablet 600 mg PO QPM 04/09/24 05/23/24 05/22/24 mirtazapine 7.5 mg tablet 7.5 mg PO 04/09/24 05/23/24 05/22/24 ondansetron 4 mg disintegrating 4 mg PO Q6H PRN Nausea And Vomiting 04/09/24 05/23/24 Unknown tablet pantoprazole 40 mg tablet,delayed 40 mg PO 04/09/24 05/23/24 05/22/24 release polyethylene glycol 3350 17 17 g PO [facility] 04/09/24 05/23/24 05/21/24 gram/dose oral powder (Miralax) sennosides 8.6 mg-docusate sodium 1 tab-cap PO 04/09/24 05/23/24 05/22/24 50 mg tablet (Senokot-S) sennosides 8.6 mg-docusate sodium 1 tab-cap PO 04/09/24 05/23/24 05/23/24 50 mg tablet (Senokot-S) insulin lispro 100 unit/mL 1 sliding scale dose subcut 05/21/24 05/23/24 Unknown subcutaneous solution melatonin 5 mg tablet 10 mg PO 05/21/24 05/23/24 05/22/24 oxybutynin chloride 2.5 mg tablet 2.5 mg PO QPM 05/21/24 05/23/24 05/22/24 tramadol 50 mg tablet 50 mg PO Q4H PRN Pain 5-10 05/21/24 05/23/24 05/23/24 acetaminophen 325 mg tablet 650 mg PO Q6 PRN .PAIN 1-4 05/23/24 05/23/24 Unknown albuterol sulfate 2.5 mg/3 mL 2.5 mg inhalation Q4H PRN 05/23/24 05/23/24 Unknown (0.083 %) solution for nebulization Shortness Of Breath Or Wheezing calcium acetate 667 mg tablet 667 mg PO . NEEDED PRN SNACKS 05/23/24 05/23/24 Unknown ciprofloxacin HCl 250 mg tablet 250 mg PO QPM 05/23/24 05/23/24 05/22/24 protein supplement 1 ea PO BID 05/23/24 05/23/24 05/23/24 AM Active Medications Generic Name Dose Route Start Last Admin Trade Name Freq PRN Reason Stop Dose Admin Amlodipine Besylate 10 mg 05/23/24 21:00 05/25/24 21:28 Amlodipine Besylate 5 Mg Tab PO 06/22/24 20:59 10 mg QPM CHARLEY Administration Aspirin 81 mg 05/23/24 21:00 05/25/24 21:31 Aspirin 81 Mg Ectab PO 06/22/24 20:59 81 mg HS CHARLEY Administration Atorvastatin Calcium 40 mg 05/23/24 21:00 05/25/24 21:30 Atorvastatin 40 Mg Tab PO 06/22/24 20:59 40 mg HS CHARLEY Administration Calcium Acetate 1,334 mg 05/26/24 07:30 05/26/24 08:29 Calcium Acetate 667 Mg Cap/Tab PO 06/25/24 07:29 1,334 mg [id number] CHARLEY Administration Clopidogrel Bisulfate 75 mg 05/23/24 21:00 05/25/24 21:30 Clopidogrel Bisulfate 75 Mg Tab PO 06/22/24 20:59 75 mg QPM CHARLEY Administration Docusate Sodium 100 mg 05/23/24 21:00 05/26/24 08:29 Docusate Sodium 100 Mg Cap PO 06/22/24 20:59 100 mg BID CHARLEY Administration Duloxetine HCl 20 mg 05/23/24 21:00 05/25/24 21:29 Duloxetine Hcl 20 Mg Cap PO 06/22/24 20:59 20 mg QPM CHARLEY Administration Gabapentin 600 mg 05/23/24 21:00 05/25/24 21:29 Gabapentin 600 Mg Tab PO 06/22/24 20:59 600 mg QPM CHARLEY Administration Cefepime HCl 1,000 mg in 10 mls @ 5 mls/min 05/24/24 21:00 05/25/24 21:27 Maxipime 2000mg IV 05/31/24 20:59 5 mls/min QPM CHARLEY Administration Protocol Insulin Aspart 0 units 05/23/24 16:30 05/26/24 08:28 Insulin Aspart Per Unit Charge SC 06/22/24 16:29 7 units ACHS CHARLEY Administration Isosorbide Mononitrate 30 mg 05/23/24 21:00 05/25/24 21:28 Isosorbide Borden Extended Rel 30 Mg Tabcr PO 06/22/24 20:59 30 mg QPM CHARLEY Administration Levothyroxine Sodium 50 mcg 05/24/24 06:30 05/26/24 05:14 Levothyroxine Sodium 50 Mcg Tablet PO 06/23/24 06:29 50 mcg DAILYBB CHARLEY Administration Melatonin 6 mg 05/23/24 21:00 05/25/24 21:31 Melatonin 3 Mg Tab PO 06/22/24 20:59 6 mg HS CHARLEY Administration Metoprolol Succinate 50 mg 05/23/24 21:00 05/25/24 21:31 Metoprolol Succ 50mg Ext Rel Tab PO 06/22/24 20:59 50 mg QPM CHARLEY Administration Mirtazapine 7.5 mg 05/23/24 21:00 05/25/24 21:29 Mirtazapine Tab 15 Mg Tab PO 06/22/24 20:59 7.5 mg HS CHARLEY Administration Oxybutynin Chloride 2.5 mg 05/23/24 21:00 05/25/24 21:28 Oxybutynin Chloride 5 Mg Tab PO 06/22/24 20:59 2.5 mg QPM CHARLEY Administration Pantoprazole Sodium 40 mg 05/23/24 21:00 05/25/24 21:29 Pantoprazole 40 Mg Tab PO 06/22/24 20:59 40 mg HS CHARLEY Administration Polyethylene Glycol 17 gm 05/24/24 09:00 05/26/24 08:29 Polyethylene (Miralax) 17 Gm Pack PO 06/23/24 08:59 17 gm DAILY CHARLEY Administration Ropinirole HCl 0.25 mg 05/23/24 21:00 05/25/24 21:28 Ropinirole Hcl 0.25 Mg Tablet PO 06/22/24 20:59 0.25 mg HS CHARLEY Administration Senna/Docusate Sodium 1 tab 05/24/24 09:00 05/26/24 08:29 Docusate Sodium/Senna 50/8.6mg Tab PO 06/23/24 08:59 1 tab DAILY CHARLEY Administration Tramadol HCl 50 mg 05/23/24 18:29 05/26/24 08:32 Tramadol Hcl 50 Mg Tablet PO 06/22/24 18:28 50 mg Q4H PRN Administration Pain 5-10 Vitamin D 125 mcg 05/23/24 21:00 05/25/24 21:30 Cholecalciferol 125 Mcg (5,000 Units) Tab PO 06/22/24 20:59 125 mcg QPM CHARLEY Administration
--- NOTE | 2024-05-26 15:38 | Hospitalist Progress Note ---
Date of Service May 26, 2024 Assessment & Plan (1) Hemodialysis catheter infection: Plan: sent in by outpatient dialysis provider for pus drainage from the dialysis catheter. - Recently replaced tunneled dialysis catheter left upper chest wall on April 15 of this year. - Continue Vancomycin and cefepime - Blood cultures: no growth at 48 hours Vascular surgery consultation - no signs of active infection at this time, plan for scheduled LUE AV graft placement later this week nephrology consulted - recommend treating as an infection delaying placement for another 6 weeks infectious disease consulted for formal recommendations (2) End stage renal disease: Plan: [facility] consultation noted - dialysis 05/26 - should be able to handle no dialysis for 3 to 4 days (3) DM type 2 (diabetes mellitus, type 2): Plan: Home regimen held - NovoLog 70/30 40 units daily, plus sliding scale coverage for significant hyperglycemia Basal bolus insulin BSG ACHS Plan chronic stable medical conditions: Hypertensioncontinue amlodipine, metoprolol CADcontinue aspirin, statin, plavix Neuropathy continue Cymbalta and gabapentin Hypothyroidcontinue Synthroid GERDcontinue PPI mental healthcontinue Remeron dispo: Continued inpatient stay DVT proph: Hold chemical in anticipation of possible OR procedure Admission and Anticipated Discharge Date Admission Date: May 23, 2024 Supervising Physician Co-Signing Physician Notes PA Supervision Note: I did not personally see or examine the patient today, but I verified all burnett points of SHE Ac's assessment and plan with the following exceptions/additions: None Subjective Mai was seen during dialysis. Denies any pain at the dialysis catheter site. Denies fevers or chills. Is wanting to get home. Review of Systems Review of Systems: All systems reviewed & are unremarkable except as noted in Subjective Physical Exam Physical Exam: General: NAD, VS as above Resp: normal respiratory effort, lungs clear to auscultation CV: RRR, no murmur, Extremities: Moves all extremities, no edema Neuro: A&O x3, Skin: intact, no lesions noted. No erythema or drainage around dialysis catheter site Results & Data Results & Data Vital Signs (Past 12 Hours) Vital Signs Temp Pulse Pulse Pulse Resp BP BP 05/26/24 14:47 97.9 F 81 05/26/24 14:26 97.5 F L 74 16 105/60 05/26/24 14:00 81 123/71 05/26/24 13:30 78 130/74 05/26/24 13:00 79 112/69 05/26/24 12:30 77 124/66 05/26/24 12:00 79 102/64 05/26/24 11:30 78 116/65 05/26/24 11:00 82 109/58 L 05/26/24 10:32 79 113/59 L 05/26/24 10:25 97.3 F L 81 05/26/24 07:17 97.3 F L 84 16 130/69 BP Pulse Ox O2 Del Method 05/26/24 14:47 139/78 05/26/24 14:26 96 Room Air 05/26/24 14:00 05/26/24 13:30 05/26/24 13:00 05/26/24 12:30 05/26/24 12:00 05/26/24 11:30 05/26/24 11:00 05/26/24 10:32 05/26/24 10:25 05/26/24 07:17 93 Room Air Laboratory Results CBC and chemistry reviewed PG Care Time/CCT Total # of Minutes Spent Total Time Spent with Patient: Total time spent is greater than 50% in coordination of care (as documented) at patient's floor/unit and/or counseling patient: Coding Level of Care Code 39195 SUB INP/OBS CARE 3/50MIN Diagnoses Hemodialysis catheter infection T82.7XXA End stage renal disease N18.6 DM type 2 (diabetes mellitus, type 2) E11.9
[2024-05-26] MEDS: LANTUS PER UNIT CHARGE SQ ONE (15:56)
[2024-05-26] MEDS: GABAPENTIN 100 MG CAP PO SCH (15:57)
[2024-05-26] MEDS: VANCOMYCIN HCL 500 MG in NSS 100mL IV ONE (16:37)
[2024-05-27] MEDS: ONDANSETRON INJ 2 MG/ML 2 ML VIAL IV PRN (05:21)
[2024-05-27] MEDS ORDERED: Nursing to Pharmacy Communication SCH (06:15)
[2024-05-27 07:40] LABS: Hematocrit (blood only) 31.4 % (37.0-47.0); Hemoglobin 10.7 g/dl (12.0-16.0); Mean Corpuscular Hemoglobin 31.8 pg (25.0-34.0); Mean Corpuscular Hgb Conc 34.1 g/dL (32.0-36.0); Mean Corpuscular Volume 93.5 fL (80.0-100.0); Mean Platelet Volume 10.4 fL (9.4-12.4); Platelet Count 198 K/uL (130-400); RDW Coefficient of Variation 13.9 % (11.5-14.5); Red Blood Count 3.36 M/uL (4.20-5.40); White Blood Count 9.65 K/ul (4.8-10.8)
[2024-05-27] MEDS: INSULIN ASPART PER UNIT CHARGE SC SCH ×2 (07:40→17:16)
[2024-05-27 07:54] LABS: BUN Creatinine Ratio 9.9 (10-20); Calcium 9.3 mg/dl (8.6-10.3); Creatinine Clr Calc Pharmacy 8.8 ml/min; Potassium 5.2 mmol/L (3.5-5.1)
[2024-05-27] MEDS: LANTUS PER UNIT CHARGE SQ SCH (08:22)
--- NOTE | 2024-05-27 09:51 | Nephrology Progress Note ---
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 this is the 3rd time; second one in 6 wks. Woke 05/26 w/ TDC dressing off so likely to be an ongoing issue. Clinically stable; no evidence of metastatic infection. Blood cxs negative 05/23 at [facility] and ES swab w/ heavy skin vivienne on preliminary culture result at [facility]. AVG placement originally planned for 05/29 now deferred. -CVC out SANDIE w/ cath tip cx and line holiday; replace TDC at 48 hrs if negative cxs (blood cxs have to date been consistently negative); 2-3 wks of targeted abtx unless S aureus or bacteremia in which case longer course -currently on vancomycin and Cefepime to cover Gram +ve and gram -ve > vanco/ceftaz would be sufficient and can be given last hour of HD -will order tegaderm dressings for TDC moving forward (these also can irritate skin but hope to get through to AVG w/o this issue); consider mittens ON at facility to keep her from picking if she'll agree to that; will discuss -appreciate vascular assistance with TDC exchange -no updates available on dialysis culture results until 05/28 Care coordinated w/ Dr Ng regarding lokelma, dialysis culture results, dialysis access plan. We are in agreement. (2) End stage renal disease: Plan: Mild hyperkalemia, striking that it comes day after HD. No e/o fluid overload except mild hyponatremia Na 132 today and exam is fine. She should be able to handle no dialysis for 2-3 days. >>recommend once daily lokelma starting today once TDC out and she's no longer NPO Next HD on 05/29 or 05/30 as access permits/clinical status requires hgb 10.7; s/p 05/26 10K epo which is acceptable as anticipated epo resistance here (3) Urine culture positive: Plan: had brown foul smelling urine approx 05/19 or 05/20 (does not void daily) w/ no dysuria, urgency, frequency, or constitutional symptoms >> urine cx obtained with a HAT per pt was positive and per OP agriculture intern she started cipro po 10/3; cx results not available do not consider this active UTI; would not treat specifically; no current voiding or constitutional sx Admission and Anticipated Discharge Date Admission Date: May 23, 2024 Subjective no overnight events. tells me paper tape really bothers her and so she may pick at catheter dressings sometimes; not bothered by tegaderm; no n/v, not sob; no dysuria or frequency concerns Review of Systems 2 Review of Systems: All systems reviewed & are unremarkable except as noted in Subjective Physical Exam 2 Constitutional: well developed and well nourished ENMT: Ears: + hearing impairment Mouth: + dry oral mucous membranes Respiratory: normal respiratory effort Auscultation: lungs clear to auscultation bilaterally and + diminished lung sounds Cardiovascular: Rate/Rhythm: regular rate and regular rhythm Extremities: n o edema Musculoskeletal: Extremities: strength 5/5 throughout Skin: no rashes, warm and dry Psychiatric: Orientation: alert and oriented x 3 Insight: + limited insight Results & Data Vital Signs (Past 12 Hours) Vital Signs Temp Pulse Resp BP Pulse Ox O2 Del Method 05/27/24 08:20 Room Air 05/27/24 07:40 36.3 C L 68 18 113/68 95 Room Air Laboratory Results 05/27/24 07:06 05/27/24 07:06
--- NOTE | 2024-05-27 14:25 | History & Physical Bridge Note ---
Date of Service May 27, 2024 History & Physical Bridge Note Patient for removal of permcath today. I have discussed the risks options and benefits of the procedure with the patient. The patient understands the risks options and benefits and agrees to the procedure. I have examined the patient, reviewed the History & Physical and in the interval since the performance of the History & Physical I have noted the following changes of clinical significance: no changes noted
--- NOTE | 2024-05-27 14:41 | Hospitalist Progress Note ---
Date of Service May 27, 2024 Assessment & Plan (1) Hemodialysis catheter infection: Plan: sent in by outpatient dialysis provider for pus drainage from the dialysis catheter. - Recently replaced tunneled dialysis catheter left upper chest wall on April 15 of this year. - Continue Vancomycin and cefepime - Blood cultures: no growth at 48 hours Vascular surgery consultation - plan for TDC removal 05/27 nephrology consulted - replace TDC in 48 hours if no growth - tegaderm dressing for TDC - mild kyperkalemia, 5.2, daily lokelma when allowed a diet infectious disease consulted - Continue IV vancomycin per protocol and HD dosing of Cefepime - Monitor BC for 72 hours prior to replacing line at a different site - Anticipate 2-3 weeks of pathogen targeted Abx, if no bacteremia and if not growing staph aureus from wound culture (2) End stage renal disease: Plan: [facility] consultation noted - dialysis 05/26 - should be able to handle no dialysis for 3 to 4 days -with hyperkalemia--> continue renal diet, add Lokelma once daily (3) DM type 2 (diabetes mellitus, type 2): Plan: Home regimen held - NovoLog 70/30 40 units daily, plus sliding scale coverage for significant hyperglycemia Basal bolus insulin BSG ACHS Plan chronic stable medical conditions: Hypertensioncontinue amlodipine, metoprolol CADcontinue aspirin, statin, plavix Neuropathy continue Cymbalta and gabapentin Hypothyroidcontinue Synthroid GERDcontinue PPI mental healthcontinue Remeron dispo: Continued inpatient stay DVT proph: Hold chemical with OR procedure, SCDs Admission and Anticipated Discharge Date Admission Date: May 23, 2024 Supervising Physician Co-Signing Physician Notes PA Supervision Note: I did not personally see or examine the patient today, but I verified all burnett points of SHE Ac's assessment and plan with the following exceptions /additions: None Subjective patient seen prior to OR this morning wanting to eat no pain or drainage from TDC, aware plan for removal today Review of Systems Review of Systems: All systems reviewed & are unremarkable except as noted in Subjective Physical Exam Physical Exam: General: NAD, VS as above Resp: normal respiratory effort, lungs clear to auscultation CV: RRR, no murmur, Extremities: Moves all extremities, no edema Neuro: A&O x3, Skin: intact, no lesions noted. No erythema or drainage around dialysis catheter site Results & Data Results & Data Vital Signs (Past 12 Hours) Vital Signs Temp Pulse Resp BP Pulse Ox O2 Del Method 05/27/24 08:20 Room Air 05/27/24 07:40 97.3 F L 68 18 113/68 95 Room Air Laboratory Results cbc and chemistry reviewed PG Care Time/CCT Total # of Minutes Spent Total Time Spent with Patient: Total time spent is greater than 50% in coordination of care (as documented) at patient's floor/unit and/or counseling patient: Coding Level of Care Code 91688 SUB INP/OBS CARE 2/35MIN Diagnoses Hemodialysis catheter infection T82.7XXA End stage renal disease N18.6 DM type 2 (diabetes mellitus, type 2) E11.9
--- NOTE | 2024-05-27 14:52 | Pre Anesthesia Assessment ---
Date of Service May 27, 2024 Pre Sedation Assessment Vital Signs Temp Pulse Resp BP BP Pulse Ox O2 Del Method 05/27/24 08:20 Room Air 05/27/24 07:40 36.3 C L 68 18 113/68 95 Room Air 05/26/24 21:10 36.2 C L 83 18 135/71 94 Room Air Cardiovascular RRR, no murmur, no edema Respiratory normal respiratory effort, lungs clear to auscultation Pre-Sedation Airway Assessment Smoking Status: Never smoker Hx Sleep Apnea: No Short, Thick Neck: No Thyromental Distance: > or= 3.5 Finger Breadths Oral Cavity: + WNL Mallampati Class: II ASA: ASA3 NPO Status Date of Last Intake of Fluids: 05/27/24 Time of Last Intake of Fluids: 08:31 Date of Last Intake of Solid Food: 05/26/24 Time of Last Intake of Solid Foods: 21:00 Procedure Planning Contraindications for Sedation: none Current Medications Reviewed: Yes Notes The planned sedation has been discussed with the patient. Informed Consent was obtained. I have identified the patient, determined the appropriateness of sedation and have assessed the patient immediately prior to the procedure. All medicine(s) and interventions are by my order.
[2024-05-27] MEDS: fentaNYL citrate PF 100 MCG/2 ML VIAL ONE (14:53)
[2024-05-27] MEDS: MIDAZOLAM HCL 1 MG/ML 2ML VIAL ONE (14:53)
--- NOTE | 2024-05-27 15:03 | Operative Report ---
Post Operative Report Pre & Post Diagnosis Operation Date: 05/27/24 07:00 Pre-Op Diagnosis: infected perm catheter Post-Op Diagnosis: infected perm catheter I identified the patient and participated in the time-out.: Yes Procedure Removal of per catheter, Moderate sedation [id number](Left) - Andi Womack MD Surgeon Andi Womack MD Bench Assembler Operator Mohit Morales MD Estimated Blood Loss 0 Findings Consistent with Post-Op Diagnosis Mild erythema at skin site. No pus or discharge. No bleeding at case completion. Specimens Catheter tip Anesthesia Type RN Sedation Complications None Disposition Accompanied Patient To Recovery: No Indications Concern for infected tunneled line left internal jugular vein Description of Procedure The patient was taken to the angio suite and placed in the supine position. The left side of the neck, chest wall and catheter were prepped and draped in a sterile manner. Local anesthesia was then accomplished. Using sharp and blunt dissection, the cuff of the permcath was freed up from the surrounding fibrous tissue. The permcath and cuff were completely removed. The tip was sent for culture. Pressure was then applied and adequate hemostasis was obtained. A sterile dressing was then applied. The patient left the angio suite in good condition and tolerated the procedure well. Dr. Womack was present and scrubbed for the entire procedure. I attest to the content of the Intraoperative Record and any orders documented therein. Any exceptions are noted below. Supervising Physician Co-Signing Physician Notes Andi Womack MD
--- NOTE | 2024-05-27 15:09 | Post Operative Brief Note ---
Immediate Post Op Note Date of Surgery May 27, 2024 Pre & Post Diagnosis Operation Date: 05/27/24 07:00 Pre-Op Diagnosis: infected perm catheter Post-Op Diagnosis: infected perm catheter I identified the patient and participated in the time-out.: Yes Procedure Operation Date: 05/27/24 07:00 Actual Procedures p Removal of per catheter, Moderate sedation [id number](Left) - Andi Womack MD Surgeon Andi Womack MD Nurses' Registry Director Mohit Morales MD Estimated Blood Loss 0 Findings Consistent with Post-Op Diagnosis Anesthesia Type RN Sedation Complications none Disposition Accompanied Patient To Recovery: No Disposition: Recovery Room
[2024-05-27] MEDS: LIDOCAINE 1% LOCAL 20 ML VIAL ONE (15:10)
[2024-05-27] MEDS: SODIUM ZIRCONIUM CYCLOSILICATE 10 GM PACKET PO SCH (17:29)
[2024-05-28 06:11] LABS: Hematocrit (blood only) 30.4 % (37.0-47.0); Mean Corpuscular Hemoglobin 30.8 pg (25.0-34.0); Mean Corpuscular Hgb Conc 32.9 g/dL (32.0-36.0); Mean Corpuscular Volume 93.5 fL (80.0-100.0); Mean Platelet Volume 10.4 fL (9.4-12.4); Platelet Count 208 K/uL (130-400); RDW Coefficient of Variation 13.7 % (11.5-14.5); RDW Standard Deviation 46.5 fL (36.4-46.3); Red Blood Count 3.25 M/uL (4.20-5.40); White Blood Count 9.31 K/ul (4.8-10.8)
[2024-05-28 06:26] LABS: BUN Creatinine Ratio 10.6 (10-20); Calcium 9.1 mg/dl (8.6-10.3); Creatinine Clr Calc Pharmacy 7.2 ml/min
--- NOTE | 2024-05-28 10:25 | Pharmacy Report ---
Pharmacy PK ABX Note - Date of Service May 28, 2024 - Assessment and Plan Assessment 05/28: * Infected dialysis catheter removed yesterday. Per Nephrology note, patient can go without dialysis for 2-3 days. Anticipate next dialysis either 05/29 or 05/30 if access obtained. Awaiting culture results. Blood cultures no growth x 48 hrs. Cath tip culture pending. * Random Vanco level with AM labs today = 19.3 mcg/ml. Level is therapeutic but at the high end of goal range. * Since no dialysis planned for today, expect limited Vancomycin clearance especially since serum creat is rising. Will hold off on Vancomycin dose for today. * Will obtain random Vanc level tomorrow and re-assess need for dose. 05/26 * Predialysis vanco level today was 21.2mcg/ml, vancomycin 500mg iv x 1 has been ordered to be given after dialysis today. * Blood cultures from 05/23 are negative (still preliminary). 05/25 * 73 year old F receiving cefepime and vancomycin for treatment of HD catheter infection. * Pertinent microbiologic data includes: outpatient blood cultures obtained GIG TENDER. Inpatient blood cultures x2 pending. * ESRD - will dose via level instead of AUC * Unclear when next HD session will be w HD catheter infection. Likely holiday until at least Sunday. * Vanco dosing/levels and HD session(s) * 05/23 PM: Vanco 1500 mg IV x1 * 05/24 AM: Vanco level of 20.8 mcg/mL * 05/25 AM: Vanco level of 16.3 mcg/mL * 05/25 AM: Vanco 500 mg IV x1 dose ordered * Patient-specific non-HD clearance is not insignificant, based on level trending down from 20.8 to 16.3 mcg/mL over ~24 hours without HD. Anticipate level may be subtherapeutic tomorrow, assuming similar 24 hour clearance today. Will therefore order small supplemental dose now. Plan Vancomycin * No dose today * Repeat random level 05/29 with morning labs Pharmacy will continue to follow and will adjust dose/frequency as necessary. Thank you.
--- NOTE | 2024-05-28 11:43 | Nephrology Progress Note ---
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 this is the 3rd catheter since october; second DIANN in 6 wks. Woke 05/26 w/ TDC dressing off so likely to be an ongoing issue. Clinically stable; no evidence of metastatic infection. Blood cxs negative 05/23 at [facility] as of 05/28 and final ES swab w/ heavy growth usual skin vivienne plus moderate growth C albicans, sensis not indicated at [facility]. AVG placement originally planned for 05/29 now deferred. -CVC out 05/27 and line holiday; replace TDC at 48 hrs if negative cxs (blood cxs, cath tip cx have to date been consistently negative); 2-3 wks of targeted abtx ? fluconazole -currently on vancomycin and Cefepime to cover Gram +ve and gram -ve >> will see if ID recommends switch to fluconazole or other ->having [facility] [facility] fax culture results to put on chart blood and exit site; reviewed blood cx results w/ lab >> per them at least a yeast form would generally show on routine blood cultures -will order tegaderm dressings for TDC moving forward (these also can irritate skin but hope to get through to AVG w/o this issue); consider mittens ON at facility to keep her from picking if she'll agree to that; will discuss -appreciate vascular assistance with line holiday >> d/w them today and will plan tentatively to replace TDC at different site on 05/30 assuming cxs remain negative, including cath tip cx TText w/ Dr Ng asking her to update ID on cx results; see if this changes abtx or no treatment. care coordinated w/ vascular as above as well. (2) End stage renal disease: Plan: Mild hyperkalemia, striking that it comes day after HD; but K improved today. No e/o fluid overload except mild hyponatremia Na 132 today and exam is fine. She should be able to handle no dialysis for 2-3 days. >>monitor for now but may need to start daily lokelma if K unacceptably high > evaluate daily Next HD on 05/29 or 05/30 as access permits/clinical status requires hgb 10.0; s/p 05/26 10K epo which is acceptable as anticipated epo resistance here (3) Urine culture positive: Plan: had brown foul smelling urine approx 05/19 or 05/20 (does not void daily) w/ no dysuria, urgency, frequency, or constitutional symptoms >> urine cx obtained with a HAT per pt was positive and per OP billing administrator she started cipro po 05/22; cx results not available do not consider this active UTI; would not treat specifically; no current voiding or constitutional sx Admission and Anticipated Discharge Date Admission Date: May 23, 2024 Subjective TDC out; ES w/o drainage and some redness; no sob, no n/v Review of Systems 2 Review of Systems: All systems reviewed & are unremarkable except as noted in Subjective Physical Exam 2 Constitutional: well developed (lying flat sleeping soundly wakens fully), well nourished and cooperative; no acute distress ENMT: Ears: + hearing impairment Mouth: + dry oral mucous membranes Respiratory: normal respiratory effort Auscultation: lungs clear to auscultation bilaterally and + diminished lung sounds Cardiovascular: Rate/Rhythm: regular rate and regular rhythm Extremities: n o edema Musculoskeletal: Extremities: strength 5/5 throughout Skin: no rashes, warm and dry Psychiatric: Orientation: alert and oriented x 3 Insight: + limited insight Results & Data Vital Signs (Past 12 Hours) Vital Signs Temp Pulse Pulse Resp BP BP Pulse Ox 05/28/24 11:36 36.4 C L 72 16 114/66 96 05/28/24 08:45 05/28/24 07:30 36.5 C 71 18 117/66 94 05/28/24 03:03 36.6 C 72 18 123/72 95 O2 Del Method 05/28/24 11:36 Room Air 05/28/24 08:45 Room Air 05/28/24 07:30 Room Air 05/28/24 03:03 Room Air Laboratory Results 05/28/24 05:21 05/28/24 05:21
--- NOTE | 2024-05-28 13:21 | Hospitalist Progress Note ---
Date of Service May 28, 2024 Assessment & Plan (1) Hemodialysis catheter infection: Plan: sent in by outpatient dialysis provider for pus drainage from the dialysis catheter. - Recently replaced tunneled dialysis catheter left upper chest wall on April 15 of this year. - Continue Vancomycin and cefepime - Blood cultures: no growth at 48 hours - Outside culture: yamilet albicans moderate growth Vascular surgery consultation - s/p TDC removal 05/27 - tentative plan for catheter replacement Wednesday 05/30 nephrology consulted - replace TDC in 48 hours if no growth - tegaderm dressing for TDC infectious disease consulted - Continue IV vancomycin per protocol and HD dosing of Cefepime - Monitor BC for 72 hours prior to replacing line at a different site - Anticipate 2-3 weeks of pathogen targeted Abx, if no bacteremia and if not growing staph aureus from wound culture - start fluconazole 400mg PO daily - check Echo: no valve vegetation - check qTc: 476 (2) End stage renal disease: Plan: [facility] neph[facility] consultation noted - dialysis 05/26 - should be able to handle no dialysis for 3 to 4 days -with hyperkalemia--> continue renal diet, add Lokelma once daily (3) DM type 2 (diabetes mellitus, type 2): Plan: Home regimen held - NovoLog 70/30 40 units daily, plus sliding scale coverage for significant hyperglycemia Basal bolus insulin BSG ACHS Carb ratio decreased 05/28 Plan chronic stable medical conditions: Hypertensioncontinue amlodipine, metoprolol CADcontinue aspirin, statin, plavix Neuropathy continue Cymbalta and gabapentin Hypothyroidcontinue Synthroid, TSH 1.8 in 10/2023 GERDcontinue PPI mental healthcontinue Remeron dispo: Continued inpatient stay DVT proph: Hold chemical with OR procedure, SCDs Discusssed with Dr. Chaparro and Dr. Aguilera Admission and Anticipated Discharge Date Admission Date: May 23, 2024 Supervising Physician Co-Signing Physician Notes PA Supervision Note: I did not personally see or examine the patient today, but I verified all burnett points of SHE Ac's assessment and plan with the following exceptions/additions: None Subjective patient seen sitting up in bed, eating lunch. No pain or fevers, does report some itching at the exit site of the dialysis catheter. Review of Systems Review of Systems: All systems reviewed & are unremarkable except as noted in Subjective Physical Exam Physical Exam: General: NAD, VS as above Resp: normal respiratory effort, lungs clear to auscultation CV: RRR, no murmur, Extremities: Moves all extremities, no edema Neuro: A&O x3, Skin: intact, no lesions noted. Small area of erythema just below exit site removal, no drainage noted. Dressing clean dry and intact Results & Data Results & Data Vital Signs (Past 12 Hours) Vital Signs Temp Pulse Pulse Resp BP BP Pulse Ox 05/28/24 11:36 97.5 F L 72 16 114/66 96 05/28/24 08:45 05/28/24 07:30 97.7 F 71 18 117/66 94 05/28/24 03:03 97.9 F 72 18 123/72 95 O2 Del Method 05/28/24 11:36 Room Air 05/28/24 08:45 Room Air 05/28/24 07:30 Room Air 05/28/24 03:03 Room Air Laboratory Results CBC and chemistry reviewed PG Care Time/CCT Total # of Minutes Spent Total Time Spent with Patient: Total time spent is greater than 50% in coordination of care (as documented) at patient's floor/unit and/or counseling patient: Coding Level of Care Code 35938 SUB INP/OBS CARE 3/50MIN Diagnoses Hemodialysis catheter infection T82.7XXA End stage renal disease N18.6 DM type 2 (diabetes mellitus, type 2) E11.9
--- NOTE | 2024-05-28 14:19 | Communication Note ---
Date of Service: May 28, 2024 Potential replacement of permcath on SUNDAY, pending catheter tip culture results. Nephrology aware.
--- NOTE | 2024-05-28 15:05 | Infectious Disease Progress Nt ---
Date of Service May 28, 2024 Assessment & Plan (1) End stage renal disease on dialysis: (2) Hemodialysis catheter infection: Plan This is a 73-year-old female with past medical history of ESRD requiring on HD via tunneled catheter Sunday since11/2022 ( previously on peritoneal dialysis) , HD catheter malfunction * 2 sp exhange ( 10/2023, 03/2024) pending AV graft presents for possible HD exit site infection. She was referred to the ED from HD for exit site erythema and purulence and IV anitibiotics and vascular evaluaiotn.. Pt is a poor historian, bt endorses recent HD catheter exchange in March. She denies recent HD malfunction, fever, chills, sweats, nausea, vomiting. In the ED afebrile, heart rate 87, RR 18, BP 103/65, O2 sats 96% on room air. Labs: WBC 10.57, BUN 19, creatinine 3.66 procalcitonin 0.51 chest x-ray no active disease. She was started on IV vancomycin and cefepime. ID consulted possible HD site infection. Blood cultures NGTD. Results of wound culture obtained at Dialysis center prior to admission, not available to me. Patient seen during HD. She is comfortable. She offers no complaints. Left HD catheter still in place. Microbiology: Blood cultures 05/23 NGTD cath tip culture 05/27 NGTD Prior wound culture ( HD outpt) - yamilet albicans per report Antibiotics Cefepime 05/23ongoing Vancomycin /ongoing # Possible exit site TDC infection ( skin erythema and purulent drainage per report,05/23) ca - No associated bacteremia so far - Wound cx obtained on 05/23 at HD ( yamilet albicans per report ) - pending AVG _TDC removed 05/27 # History of HD site catheter malfunction *2 s/p exchange ( 10/2023 and 03/2024) Discussion: No purulence or erythema at TDC site on my exam , however incomplete exam as pt was seen during HD while TDC in use. It is reassuring that she is not currently bacteremic or fungemic, but given the recurrence of TDC exit site infections/ malfunctions per report, agreed with line removal . Exit-site infection cannot be resolved with systemic antibiotics. The TDC should be removed and the subsequent catheter placed using a different site once BC clear She is s/p removal of catheter on 05/27/24 Recommendations Start fluconazole 200 mg PO daily ( HD dosing for 400mg) Check qtc and TTE If BC finalize as sterile, then dc IV vancomycin per protocol and HD dosing of Cefepime Monitor BC for 72 hours prior to replacing line at a different site, if sterile can place new line Anticipate 2-3 weeks of pathogen targeted Abx, if no bacteremia and if no growth staph aureus from wound culture upload wound culture results that were obtained at HD center D/W team ID will continue to follow Jase Troy MD, MPH Infectious Disease ID Connect [facility], ID Division Call [phone] with questions Admission and Anticipated Discharge Date Admission Date: May 23, 2024 Subjective This patient recommendation is based on a telemedicine consult request which was completed asynchronously through chart review and information provided by the primary physician. The patient was not seen or examined today. The evaluation is consultative in nature and all patient care and treatment decisions can either be accepted or rejected by the patient's primary hospital-based treating physician using their own independent medical judgment for their patient. Time Spent Reviewing Chart: 21 - 30 minutes Afebrile S/P HD cath removal 05/27 Cath tip NGTD Per report wound cx from HD center growing yamilet albicans Results & Data Vital Signs (Past 12 Hours) Vital Signs Temp Pulse Resp BP Pulse Ox O2 Del Method 05/28/24 11:36 36.4 C L 72 16 114/66 96 Room Air 05/28/24 08:45 Room Air 05/28/24 07:30 36.5 C 71 18 117/66 94 Room Air Laboratory Results 05/27/24 15:00 Catheter Tip Culture - Preliminary Catheter Tip, Perm Cathether No growth to date. 05/28/24 05/28/24 05/28/24 11:35 07:28 05:21 WBC 9.31 RBC 3.25 L Hgb 10.0 L Hct 30.4 L MCV 93.5 MCH 30.8 MCHC 32.9 RDW Std Deviation 46.5 H RDW Coeff of Bethany 13.7 Plt Count 208 MPV 10.4 Sodium 133 L Potassium 5.0 Chloride 97 L Carbon Dioxide 24 Anion Gap 12 H BUN 81 H Creatinine 7.64 H* D Est Cr Clr Drug Dosing 7.2 eGFR 5.22 BUN/Creatinine Ratio 10.6 Glucose 183 H POC Glucose 202 H 153 H Calcium 9.1 Random Vancomycin 19.3 05/27/24 05/27/24 20:40 15:53 WBC RBC Hgb Hct MCV MCH MCHC RDW Std Deviation RDW Coeff of Bethany Plt Count MPV Sodium Potassium Chloride Carbon Dioxide Anion Gap BUN Creatinine Est Cr Clr Drug Dosing eGFR BUN/Creatinine Ratio Glucose POC Glucose 230 H 118 H Calcium Random Vancomycin Diagnostic Findings Microbiology 05/27/24 15:00 Catheter Tip, Perm Cathether Catheter Tip Culture - Preliminary No growth to date. 05/23/24 15:11 Blood Aerobic Blood Culture - Preliminary No growth in Aerobic bottle after 48 hours. 05/23/24 15:11 Blood Anaerobic Blood Culture - Preliminary No growth in Anaerobic bottle after 48 hours. 05/23/24 12:55 Blood Aerobic Blood Culture - Preliminary No growth in Aerobic bottle after 48 hours. 05/23/24 12:55 Blood Anaerobic Blood Culture - Preliminary No growth in Anaerobic bottle after 48 hours. Medications Administered Home Medications Medication Instructions Recorded Confirmed Last Taken cholecalciferol (vitamin D3) 125 125 mcg PO QPM 04/20/22 05/23/24 05/22/24 mcg (5,000 unit) tablet (Vitamin D3) atorvastatin 40 mg tablet 40 mg PO HS 07/23/22 05/23/24 05/22/24 docusate sodium 100 mg capsule 100 mg PO BID 07/23/22 05/23/24 05/23/24 insulin aspar prot-insulin aspart 40 unit subcut UD 07/23/22 05/23/24 04/08/24 100 unit/mL (70-30) subcutaneous pen (Novolog Mix 70-30FlexPen U-100) isosorbide mononitrate 30 mg 30 mg PO QPM 07/23/22 05/23/24 05/22/24 tablet,extended release 24 hr levothyroxine 50 mcg tablet 50 mcg PO DAILY 07/23/22 05/23/24 05/23/24 metoprolol succinate 50 mg 50 mg PO QPM 07/23/22 05/23/24 05/22/24 tablet,extended release 24 hr duloxetine 20 mg capsule,delayed 20 mg PO QPM 05/18/23 05/23/24 05/22/24 release ropinirole 0.25 mg tablet 0.25 mg PO HS 05/18/23 05/23/24 05/22/24 acetaminophen 325 mg tablet 650 mg PO Q6 PRN TEMP > 100 04/09/24 05/23/24 Unknown amlodipine 5 mg tablet 10 mg PO QPM 04/09/24 05/23/24 05/22/24 calcium acetate 667 mg tablet 1,334 mg PO UD 04/09/24 05/23/24 05/23/24 ferric citrate 210 mg iron tablet 210 mg PO WM 04/09/24 05/23/24 04/08/24 (Auryxia) gabapentin 100 mg capsule 100 mg PO UD 04/09/24 05/23/24 05/21/24 gabapentin 600 mg tablet 600 mg PO QPM 04/09/24 05/23/24 05/22/24 mirtazapine 7.5 mg tablet 7.5 mg PO 04/09/24 05/23/24 05/22/24 ondansetron 4 mg disintegrating 4 mg PO Q6H PRN Nausea And Vomiting 04/09/24 05/23/24 Unknown tablet pantoprazole 40 mg tablet,delayed 40 mg PO 04/09/24 05/23/24 05/22/24 release polyethylene glycol 3350 17 17 g PO [facility] 04/09/24 05/23/24 05/21/24 gram/dose oral powder (Miralax) sennosides 8.6 mg-docusate sodium 1 tab-cap PO 04/09/24 05/23/24 05/22/24 50 mg tablet (Senokot-S) sennosides 8.6 mg-docusate sodium 1 tab-cap PO 04/09/24 05/23/24 05/23/24 50 mg tablet (Senokot-S) insulin lispro 100 unit/mL 1 sliding scale dose subcut 05/21/24 05/23/24 Unknown subcutaneous solution melatonin 5 mg tablet 10 mg PO 05/21/24 05/23/24 05/22/24 oxybutynin chloride 2.5 mg tablet 2.5 mg PO QPM 05/21/24 05/23/24 05/22/24 tramadol 50 mg tablet 50 mg PO Q4H PRN Pain 5-10 05/21/24 05/23/24 05/23/24 acetaminophen 325 mg tablet 650 mg PO Q6 PRN .PAIN 1-4 05/23/24 05/23/24 Unknown albuterol sulfate 2.5 mg/3 mL 2.5 mg inhalation Q4H PRN 05/23/24 05/23/24 Unknown (0.083 %) solution for nebulization Shortness Of Breath Or Wheezing calcium acetate 667 mg tablet 667 mg PO . NEEDED PRN SNACKS 05/23/24 05/23/24 Unknown ciprofloxacin HCl 250 mg tablet 250 mg PO QPM 05/23/24 05/23/24 05/22/24 protein supplement 1 ea PO BID 05/23/24 05/23/24 05/23/24 AM Active Medications Generic Name Dose Route Start Last Admin Trade Name Freq PRN Reason Stop Dose Admin Amlodipine Besylate 10 mg 05/23/24 21:00 05/27/24 21:27 Amlodipine Besylate 5 Mg Tab PO 06/22/24 20:59 10 mg QPM CHARLEY Administration Aspirin 81 mg 05/23/24 21:00 05/27/24 21:23 Aspirin 81 Mg Ectab PO 06/22/24 20:59 81 mg HS CHARLEY Administration Atorvastatin Calcium 40 mg 05/23/24 21:00 05/27/24 21:26 Atorvastatin 40 Mg Tab PO 06/22/24 20:59 40 mg HS CHARLEY Administration Calcium Acetate 1,334 mg 05/26/24 07:30 05/28/24 11:51 Calcium Acetate 667 Mg Cap/Tab PO 06/25/24 07:29 1,334 mg [id number] CHARLEY Administration Clopidogrel Bisulfate 75 mg 05/23/24 21:00 05/27/24 21:27 Clopidogrel Bisulfate 75 Mg Tab PO 06/22/24 20:59 75 mg QPM CHARLEY Administration Docusate Sodium 100 mg 05/23/24 21:00 05/28/24 08:21 Docusate Sodium 100 Mg Cap PO 06/22/24 20:59 100 mg BID CHARLEY Administration Duloxetine HCl 20 mg 05/23/24 21:00 05/27/24 21:26 Duloxetine Hcl 20 Mg Cap PO 06/22/24 20:59 20 mg QPM CHARLEY Administration Gabapentin 600 mg 05/23/24 21:00 05/27/24 21:26 Gabapentin 600 Mg Tab PO 06/22/24 20:59 600 mg QPM CHARLEY Administration Gabapentin 100 mg 05/26/24 15:00 05/26/24 15:57 Gabapentin 100 Mg Cap PO 06/25/24 14:59 100 mg [id number] CHARLEY Administration Cefepime HCl 1,000 mg in 10 mls @ 5 mls/min 05/24/24 21:00 05/27/24 21:23 Maxipime 2000mg IV 05/31/24 20:59 5 mls/min QPM CHARLEY Administration Protocol Insulin Aspart 0 units 05/27/24 16:30 05/28/24 12:25 Insulin Aspart Per Unit Charge SC 06/26/24 16:29 8 units ACHS CHARLEY Administration Insulin Glargine 12 units 05/27/24 09:00 05/28/24 08:22 Lantus Per Unit Charge SQ 06/26/24 08:59 12 units BID CHARLEY Administration Isosorbide Mononitrate 30 mg 05/23/24 21:00 05/27/24 21:27 Isosorbide Anderson Extended Rel 30 Mg Tabcr PO 06/22/24 20:59 30 mg QPM CHARLEY Administration Levothyroxine Sodium 50 mcg 05/24/24 06:30 05/28/24 05:38 Levothyroxine Sodium 50 Mcg Tablet PO 06/23/24 06:29 50 mcg DAILYBB CHARLEY Administration Melatonin 6 mg 05/23/24 21:00 05/27/24 21:22 Melatonin 3 Mg Tab PO 06/22/24 20:59 6 mg HS CHARLEY Administration Metoprolol Succinate 50 mg 05/23/24 21:00 05/27/24 21:28 Metoprolol Succ 50mg Ext Rel Tab PO 06/22/24 20:59 50 mg QPM CHARLEY Administration Mirtazapine 7.5 mg 05/23/24 21:00 05/27/24 21:23 Mirtazapine Tab 15 Mg Tab PO 06/22/24 20:59 7.5 mg HS CHARLEY Administration Ondansetron HCl 4 mg 05/23/24 18:29 05/27/24 05:21 Ondansetron Inj 2 Mg/Ml 2 Ml Vial IV 06/22/24 18:28 4 mg Q6H PRN Administration Nausea And Vomiting Oxybutynin Chloride 2.5 mg 05/23/24 21:00 05/27/24 21:25 Oxybutynin Chloride 5 Mg Tab PO 06/22/24 20:59 2.5 mg QPM CHARLEY Administration Pantoprazole Sodium 40 mg 05/23/24 21:00 05/27/24 21:26 Pantoprazole 40 Mg Tab PO 06/22/24 20:59 40 mg HS CHARLEY Administration Polyethylene Glycol 17 gm 05/24/24 09:00 05/28/24 08:25 Polyethylene (Miralax) 17 Gm Pack PO 06/23/24 08:59 17 gm DAILY CHARLEY Administration Ropinirole HCl 0.25 mg 05/23/24 21:00 05/27/24 21:28 Ropinirole Hcl 0.25 Mg Tablet PO 06/22/24 20:59 0.25 mg HS CHARLEY Administration Senna/Docusate Sodium 1 tab 05/24/24 09:00 05/28/24 08:22 Docusate Sodium/Senna 50/8.6mg Tab PO 06/23/24 08:59 1 tab DAILY CHARLEY Administration Sodium Zirconium Cyclosilicate 10 gm 05/27/24 16:20 05/28/24 11:51 Sodium Zirconium Cyclosilicate 10 Gm Packet PO 06/26/24 16:19 10 gm DAILY@1100 CHARLEY Administration Tramadol HCl 50 mg 05/23/24 18:29 05/28/24 12:50 Tramadol Hcl 50 Mg Tablet PO 06/22/24 18:28 50 mg Q4H PRN Administration Pain 5-10 Vitamin D 125 mcg 05/23/24 21:00 05/27/24 21:25 Cholecalciferol 125 Mcg (5,000 Units) Tab PO 06/22/24 20:59 125 mcg QPM CHARLEY Administration
--- NOTE | 2024-05-28 15:07 | XCELERA ---
[id number]
--- NOTE | 2024-05-28 15:39 | Electrocardiogram Report ---
Test Reason : Blood Pressure : */* mmHG Vent. Rate : 76 BPM Atrial Rate : 76 BPM P-R Int : 190 ms QRS Dur : 98 ms QT Int : 422 ms P-R-T Axes : 69 7 101 degrees QTcB Int : 474 ms Normal sinus rhythm T wave abnormality, consider lateral ischemia Prolonged QT Abnormal ECG When compared with ECG of 09-Apr-2024 17:28, T wave inversion more evident in Lateral leads Confirmed by Edward Nicole ([id number]) on 05/28/2024 3:39:39 PM Referred By: REFERRED SELF Confirmed By: Edward Nicole
[2024-05-28] MEDS: FLUCONAZOLE 100 MG TAB PO SCH (16:18)
[2024-05-28] MEDS ORDERED: FLUCONAZOLE 100 MG TAB PO SCH (17:00)
[2024-05-29 05:58] LABS: BUN Creatinine Ratio 12.8 (10-20); Calcium 9.2 mg/dl (8.6-10.3); Creatinine Clr Calc Pharmacy 7.1 ml/min; Potassium 5.2 mmol/L (3.5-5.1)
--- NOTE | 2024-05-29 10:52 | Nephrology Progress Note ---
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 this is the 3rd catheter since october; second DIANN in 6 wks. Woke 05/26 w/ TDC dressing off so likely to be an ongoing issue. recent vaginal yeast infection prior to admission Clinically stable; no evidence of metastatic infection. Blood cxs negative 05/23 at [facility] as of 05/28 and final ES swab w/ heavy growth usual skin vivienne plus moderate growth C albicans, sensis not indicated at [facility]. AVG placement originally planned for 05/29 now deferred. cath tip cx w/ corynebacterium 05/27 -CVC out 05/27 and line holiday >replace TDC per ID at 72 hrs negative cxs (blood cxs consistently negative but need update on [facility] 05/23 cxs which will be available tomorrow); 2-3 wks of fluconazole ; per ID continue -currently on vancomycin and Cefepime + fluconazole -will get [facility] Cx update tomorrow 0700 >suggested primary service discuss cath tip cx w/ ID >will coordinate w/ OP [place] [facility] team >> recommend keeping fingernails short, consideration of non restraint mittens for sleep (even winter mittens) to lower risk of picking again at cath dressing. current tegaderm already irritating her a bit -will order tegaderm dressings for TDC moving forward (these also can irritate skin but hope to get through to AVG w/o this issue) -appreciate vascular assistance with line holiday >> given cath tip cx, may well need temp line on 05/30 and consider replacing TDC 06/02 if cxs ok >>?prophylaxis against vaginal yeast during 6 wks or so until we can get her AVG placed adn after >> need to keep in free from infection TText w/ Dr Ng asking her to update ID on cath tip cx results; see if this changes abtx or no treatment. (2) End stage renal disease: Plan: Mild hyperkalemia, striking that it comes day after HD; but K improved today. No e/o fluid overload except mild hyponatremia Na 132 today and exam is fine. She should be able to handle no dialysis for 2-3 days. 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 pt getting restless w/ long admission. had per her severe vaginal yeast infection prior to admission. also cath tip cx growing Corynebacterium. Review of Systems 2 Review of Systems: All systems reviewed & are unremarkable except as noted in Subjective Physical Exam 2 Constitutional: well developed (sitting up in bed RA eating heartl), well nourished and cooperative; no acute distress ENMT: Ears: + hearing impairment Mouth: + dry oral mucous membranes Respiratory: normal respiratory effort Auscultation: lungs clear to auscultation bilaterally and + diminished lung sounds Cardiovascular: Rate/Rhythm: regular rate and regular rhythm Extremities: n o edema Gastrointestinal (Abdomen): Inspection/Auscultation: normal bowel sounds P ercussion/Palpation: abdomen soft; abdomen nontender Musculoskeletal: Extremities: strength 5/5 throughout Skin: no rashes, warm and dry Psychiatric: Orientation: alert and oriented x 3 Insight: + limited insight Results & Data Vital Signs (Past 12 Hours) Vital Signs Temp Pulse Resp BP Pulse Ox O2 Del Method 05/29/24 08:33 Room Air 05/29/24 07:42 36.3 C L 65 16 121/73 96 Room Air Laboratory Results 05/28/24 05:21 05/29/24 05:22 cx as above no further update on [facility] cxs
--- NOTE | 2024-05-29 12:18 | Hospitalist Progress Note ---
Date of Service May 29, 2024 Assessment & Plan (1) Hemodialysis catheter infection: Plan: sent in by outpatient dialysis provider for pus drainage from the dialysis catheter. - Recently replaced tunneled dialysis catheter left upper chest wall on April 15 of this year. - Continue Vancomycin and cefepime - Blood cultures: no growth finalized - Outside culture: yamilet albicans moderate growth - Catheter Tip culture: Corynebacterium Vascular surgery consultation - s/p TDC removal 05/27 - plan for temporary line 05/30, TDC next week - wants repeat BC (ordered) nephrology consulted - tegaderm dressing for TDC infectious disease consulted - Continue IV vancomycin. Cefepime d/c per cultures - Monitor BC for 72 hours prior to replacing line at a different site - Anticipate 2-3 weeks of pathogen targeted Abx - continue fluconazole daily - check Echo: no valve vegetation - check qTc: 476 (2) End stage renal disease: Plan: [facility] neph[facility] consultation noted - dialysis 05/26 - should be able to handle no dialysis for 3 to 4 days -with hyperkalemia--> continue renal diet, add Lokelma once daily (3) DM type 2 (diabetes mellitus, type 2): Plan: Home regimen held - NovoLog 70/30 40 units daily, plus sliding scale coverage for significant hyperglycemia Basal bolus insulin BSG ACHS Carb ratio decreased 05/28 Plan chronic stable medical conditions: Hypertensioncontinue amlodipine, metoprolol CADcontinue aspirin, statin, plavix Neuropathy continue Cymbalta and gabapentin Hypothyroidcontinue Synthroid, TSH 1.8 in 10/2023 GERDcontinue PPI mental healthcontinue Remeron dispo: Continued inpatient stay DVT proph: Hold chemical with OR procedure, SCDs Discussed with Dr. Chaparro and Dr. Aguilera and Dr. odonnell Admission and Anticipated Discharge Date Admission Date: May 23, 2024 Supervising Physician Co-Signing Physician Notes PA Supervision Note: I did not personally see or examine the patient today, but I verified all burnett points of SHE Ac's assessment and plan with the following exceptions/ad ditions: None Subjective patient lying in bed resting on my arrival but awakes early to verbal stimuli No pain or fevers Understands the waiting Time before she may have a new line placed for dialysis Review of Systems Review of Systems: All systems reviewed & are unremarkable except as noted in Subjective Physical Exam Physical Exam: General: NAD, VS as above Resp: normal respiratory effort, lungs clear to auscultation CV: RRR, no murmur, Extremities: Moves all extremities, no edema Neuro: A&O x3, Skin: intact, no lesions noted. Small area of erythema just below exit site removal, no drainage noted. Dressing clean dry and intact Results & Data Results & Data Vital Signs (Past 12 Hours) Vital Signs Temp Pulse Resp BP Pulse Ox O2 Del Method 05/29/24 08:33 Room Air 05/29/24 07:42 97.3 F L 65 16 121/73 96 Room Air Laboratory Results BMP reviewed PG Care Time/CCT Total # of Minutes Spent Total Time Spent with Patient: Total time spent is greater than 50% in coordination of care (as documented) at patient's floor/unit and/or counseling patient: Coding Level of Care Code 33305 SUB INP/OBS CARE 2/35MIN Diagnoses Hemodialysis catheter infection T82.7XXA End stage renal disease N18.6 DM type 2 (diabetes mellitus, type 2) E11.9
--- NOTE | 2024-05-29 13:28 | Communication Note ---
Date of Service: May 29, 2024 For permcath insertion tomorrow.
--- NOTE | 2024-05-29 15:08 | Pharmacy Report ---
Pharmacy PK ABX Note - Date of Service May 29, 2024 - Assessment and Plan Assessment 05/29 * No HD today, next may be 05/30 with a temporary cath. * Random vanco level today is 17.3, since hasn't had HD, will not redose vancomycin. Will get another vanco level tomorrow with morning labs. * Based on culture results here (cath tip) and from [facility] (exit site), ID rec to d/c cefepime and continue vancomycin + fluconazole. 05/28: * Infected dialysis catheter removed yesterday. Per Nephrology note, patient can go without dialysis for 2-3 days. Anticipate next dialysis either 05/29 or 05/30 if access obtained. Awaiting culture results. Blood cultures no growth x 48 hrs. Cath tip culture pending. * Random Vanco level with AM labs today = 19.3 mcg/ml. Level is therapeutic but at the high end of goal range. * Since no dialysis planned for today, expect limited Vancomycin clearance especially since serum creat is rising. Will hold off on Vancomycin dose for today. * Will obtain random Vanc level tomorrow and re-assess need for dose. 05/26 * Predialysis vanco level today was 21.2mcg/ml, vancomycin 500mg iv x 1 has been ordered to be given after dialysis today. * Blood cultures from 05/23 are negative (still preliminary). 05/25 * 73 year old F receiving cefepime and vancomycin for treatment of HD catheter infection. 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 Inpatient blood cultures x2 pending. * ESRD - will dose via level instead of AUC * Unclear when next HD session will be w HD catheter infection. Likely holiday until at least Sunday. * Vanco dosing/levels and HD session(s) * 05/23 PM: Vanco 1500 mg IV x1 * 05/24 AM: Vanco level of 20.8 mcg/mL * 05/25 AM: Vanco level of 16.3 mcg/mL * 05/25 AM: Vanco 500 mg IV x1 dose ordered * Patient-specific non-HD clearance is not insignificant, based on level trending down from 20.8 to 16.3 mcg/mL over ~24 hours without HD. Anticipate level may be subtherapeutic tomorrow, assuming similar 24 hour clearance today. Will therefore order small supplemental dose now. Plan Vancomycin * No dose today * Repeat random level 05/30 with morning labs Pharmacy will continue to follow and will adjust dose/frequency as necessary. Thank you.
--- NOTE | 2024-05-29 15:18 | Infectious Disease Progress Nt ---
Date of Service May 29, 2024 Assessment & Plan (1) End stage renal disease on dialysis: (2) Hemodialysis catheter infection: Plan This is a 73-year-old female with past medical history of ESRD requiring on HD via tunneled catheter Sunday since11/2022 ( previously on peritoneal dialysis) , HD catheter malfunction * 2 sp exhange ( 10/2023, 03/2024) pending AV graft presents for possible HD exit site infection. She was referred to the ED from HD for exit site erythema and purulence and IV anitibiotics and vascular evaluaiotn.. Pt is a poor historian, bt endorses recent HD catheter exchange in March. She denies recent HD malfunction, fever, chills, sweats, nausea, vomiting. In the ED afebrile, heart rate 87, RR 18, BP 103/65, O2 sats 96% on room air. Labs: WBC 10.57, BUN 19, creatinine 3.66 procalcitonin 0.51 chest x-ray no active disease. She was started on IV vancomycin and cefepime. ID consulted possible HD site infection. Blood cultures NGTD. Results of wound culture obtained at Dialysis center prior to admission, not available to me. Patient seen during HD. She is comfortable. She offers no complaints. Left HD catheter still in place. Microbiology: Blood cultures 05/23 NG cath tip culture 05/27 C corynebacteria issues. Prior wound culture ( HD outpt) - yamilet albicans per report Antibiotics Cefepime Vancomycin 05/23ongoing Fluconazole 05/28-ongoing # Possible exit site TDC infection ( skin erythema and purulent drainage per report,05/23) - No associated bacteremia s - Wound cx obtained on 05/23 at HD ( yamilet albicans per report ) - pending AVG _TDC removed 05/27, cath tip cx + corynebacterium sp # History of HD site catheter malfunction *2 s/p exchange ( 10/2023 and 03/2024) Discussion: No purulence or erythema at TDC site on my exam , however incomplete exam as pt was seen during HD while TDC in use. It is reassuring that she is not currently bacteremic or fungemic, but given the recurrence of TDC exit site infections/ malfunctions per report, agreed with line removal . Exit-site infection cannot be resolved with systemic antibiotics. The TDC should be removed and the subsequent catheter placed using a different site once BC clear She is s/p removal of catheter on 05/27/24, cath tip + corynebacterium sp Wound cx at HD ( 05/23) , yamilet albicans TTE w/o vegatations Recommendations Continue fluconazole 200 mg PO daily ( HD dosing for 400mg) qtc on 05/28 ( 474) continue vancomycin per HD in light of corynebacterium growth( unclear if contaminant, but would treat in her case) Discontinue Cefepime Can replace line at a different site as BC sterile for > 72 hours ( BC now final) Per report BC at HD with growth Anticipate 2-3 weeks of pathogen targeted Abx, i upload wound culture and blood cuture results that were obtained at HD center Check LFTs on fluconazole. D/W team and Pharmacist . ID will continue to follow Jase Troy MD, MPH Infectious Disease ID [facility], ID Division Call [phone] with questions Admission and Anticipated Discharge Date Admission Date: May 23, 2024 Subjective This patient recommendation is based on a telemedicine consult request which was completed asynchronously through chart review and information provided by the alfredo live physician. The patient was not seen or examined today. The evaluation is consultative in nature and all patient care and treatment decisions can either be accepted or rejected by the patient's primary hospital-based treating physician using their own independent medical judgment for their patient. Time Spent Reviewing Chart: 21 - 30 minutes Catheter tip growing corynebacteria issues. Blood cultures sterile. Results & Data Vital Signs (Past 12 Hours) Vital Signs Temp Pulse Resp BP Pulse Ox O2 Del Method 05/29/24 14:39 36.4 C L 70 16 125/77 98 Room Air 05/29/24 08:33 Room Air 05/29/24 07:42 36.3 C L 65 16 121/73 96 Room Air Laboratory Results 05/27/24 15:00 Catheter Tip Culture - Final Catheter Tip, Perm Cathether Corynebacterium species 05/23/24 15:11 Aerobic Blood Culture - Final Blood No growth in Aerobic bottle after 5 days. Anaerobic Blood Culture - Final No growth in Anaerobic bottle after 5 days. 05/23/24 12:55 Aerobic Blood Culture - Final Blood No growth in Aerobic bottle after 5 days. Anaerobic Blood Culture - Final No growth in Anaerobic bottle after 5 days. 05/29/24 05/29/24 05/29/24 11:28 07:41 05:22 Sodium 134 L Potassium 5.2 H Chloride 96 L Carbon Dioxide 27 Anion Gap 11 BUN 99 H Creatinine 7.72 H* Est Cr Clr Drug Dosing 7.1 eGFR 5.15 BUN/Creatinine Ratio 12.8 Glucose 196 H POC Glucose 201 H 154 H Calcium 9.2 Random Vancomycin 17.3 05/28/24 05/28/24 20:43 16:34 Sodium Potassium Chloride Carbon Dioxide Anion Gap BUN Creatinine Est Cr Clr Drug Dosing eGFR BUN/Creatinine Ratio Glucose POC Glucose 208 H 181 H Calcium Random Vancomycin Medications Administered Home Medications Medication Instructions Recorded Confirmed Last Taken cholecalciferol (vitamin D3) 125 125 mcg PO QPM 04/20/22 05/23/24 05/22/24 mcg (5,000 unit) tablet (Vitamin D3) atorvastatin 40 mg tablet 40 mg PO HS 07/23/22 05/23/24 05/22/24 docusate sodium 100 mg capsule 100 mg PO BID 07/23/22 05/23/24 05/23/24 insulin aspar prot-insulin aspart 40 unit subcut UD 07/23/22 05/23/24 04/08/24 100 unit/mL (70-30) subcutaneous pen (Novolog Mix 70-30FlexPen U-100) isosorbide mononitrate 30 mg 30 mg PO QPM 07/23/22 05/23/24 05/22/24 tablet,extended release 24 hr levothyroxine 50 mcg tablet 50 mcg PO DAILY 07/23/22 05/23/24 05/23/24 metoprolol succinate 50 mg 50 mg PO QPM 07/23/22 05/23/24 05/22/24 tablet,extended release 24 hr duloxetine 20 mg capsule,delayed 20 mg PO QPM 05/18/23 05/23/24 05/22/24 release ropinirole 0.25 mg tablet 0.25 mg PO HS 05/18/23 05/23/24 05/22/24 acetaminophen 325 mg tablet 650 mg PO Q6 PRN TEMP > 100 04/09/24 05/23/24 Unknown amlodipine 5 mg tablet 10 mg PO QPM 04/09/24 05/23/24 05/22/24 calcium acetate 667 mg tablet 1,334 mg PO 04/09/24 05/23/24 05/23/24 ferric citrate 210 mg iron tablet 210 mg PO 04/09/24 05/23/24 04/08/24 (Auryxia) gabapentin 100 mg capsule 100 mg PO 04/09/24 05/23/24 05/21/24 gabapentin 600 mg tablet 600 mg PO QPM 04/09/24 05/23/24 05/22/24 mirtazapine 7.5 mg tablet 7.5 mg PO 04/09/24 05/23/24 05/22/24 ondansetron 4 mg disintegrating 4 mg PO Q6H PRN Nausea And Vomiting 04/09/24 05/23/24 Unknown tablet pantoprazole 40 mg tablet,delayed 40 mg PO 04/09/24 05/23/24 05/22/24 release polyethylene glycol 3350 17 17 g PO [facility] 04/09/24 05/23/24 05/21/24 gram/dose oral powder (Miralax) sennosides 8.6 mg-docusate sodium 1 tab-cap PO 04/09/24 05/23/24 05/22/24 50 mg tablet (Senokot-S) sennosides 8.6 mg-docusate sodium 1 tab-cap PO 04/09/24 05/23/24 05/23/24 50 mg tablet (Senokot-S) insulin lispro 100 unit/mL 1 sliding scale dose subcut 05/21/24 05/23/24 Unknown subcutaneous solution melatonin 5 mg tablet 10 mg PO 05/21/24 05/23/24 05/22/24 oxybutynin chloride 2.5 mg tablet 2.5 mg PO QPM 05/21/24 05/23/24 05/22/24 tramadol 50 mg tablet 50 mg PO Q4H PRN Pain 5-10 05/21/24 05/23/24 05/23/24 acetaminophen 325 mg tablet 650 mg PO Q6 PRN .PAIN 1-4 05/23/24 05/23/24 Unknown albuterol sulfate 2.5 mg/3 mL 2.5 mg inhalation Q4H PRN 05/23/24 05/23/24 Unknown (0.083 %) solution for nebulization Shortness Of Breath Or Wheezing calcium acetate 667 mg tablet 667 mg PO . NEEDED PRN SNACKS 05/23/24 05/23/24 Unknown ciprofloxacin HCl 250 mg tablet 250 mg PO QPM 05/23/24 05/23/24 05/22/24 protein supplement 1 ea PO BID 05/23/24 05/23/24 05/23/24 AM Active Medications Generic Name Dose Route Start Last Admin Trade Name Freq PRN Reason Stop Dose Admin Amlodipine Besylate 10 mg 05/23/24 21:00 05/28/24 20:57 Amlodipine Besylate 5 Mg Tab PO 06/22/24 20:59 10 mg QPM CHARLEY Administration Aspirin 81 mg 05/23/24 21:00 05/28/24 20:54 Aspirin 81 Mg Ectab PO 06/22/24 20:59 81 mg HS CHARLEY Administration Atorvastatin Calcium 40 mg 05/23/24 21:00 05/28/24 20:57 Atorvastatin 40 Mg Tab PO 06/22/24 20:59 40 mg HS CHARLEY Administration Calcium Acetate 1,334 mg 05/26/24 07:30 05/28/24 16:17 Calcium Acetate 667 Mg Cap/Tab PO 06/25/24 07:29 1,334 mg [id number] CHARLEY Administration Clopidogrel Bisulfate 75 mg 05/23/24 21:00 05/28/24 20:57 Clopidogrel Bisulfate 75 Mg Tab PO 06/22/24 20:59 75 mg QPM CHARLEY Administration Docusate Sodium 100 mg 05/23/24 21:00 05/29/24 08:02 Docusate Sodium 100 Mg Cap PO 06/22/24 20:59 100 mg BID CHARLEY Administration Duloxetine HCl 20 mg 05/23/24 21:00 05/28/24 20:56 Duloxetine Hcl 20 Mg Cap PO 06/22/24 20:59 20 mg QPM CHARLEY Administration Gabapentin 600 mg 05/23/24 21:00 05/28/24 20:57 Gabapentin 600 Mg Tab PO 06/22/24 20:59 600 mg QPM CHARLEY Administration Gabapentin 100 mg 05/26/24 15:00 05/28/24 16:19 Gabapentin 100 Mg Cap PO 06/25/24 14:59 100 mg [id number] CHARLEY Administration Insulin Aspart 0 units 05/27/24 16:30 05/29/24 13:37 Insulin Aspart Per Unit Charge SC 06/26/24 16:29 4 units ACHS CHARLEY Administration Insulin Glargine 12 units 05/27/24 09:00 05/29/24 08:53 Lantus Per Unit Charge SQ 06/26/24 08:59 12 units BID CHALREY Administration Isosorbide Mononitrate 30 mg 05/23/24 21:00 05/28/24 20:56 Isosorbide Iroquois Extended Rel 30 Mg Tabcr PO 06/22/24 20:59 30 mg QPM CHARLEY Administration Levothyroxine Sodium 50 mcg 05/24/24 06:30 05/29/24 05:20 Levothyroxine Sodium 50 Mcg Tablet PO 06/23/24 06:29 50 mcg DAILYBB CHARLEY Administration Melatonin 6 mg 05/23/24 21:00 05/28/24 20:54 Melatonin 3 Mg Tab PO 06/22/24 20:59 6 mg HS CHARLEY Administration Metoprolol Succinate 50 mg 05/23/24 21:00 05/28/24 20:55 Metoprolol Succ 50mg Ext Rel Tab PO 06/22/24 20:59 50 mg QPM CHARLEY Administration Mirtazapine 7.5 mg 05/23/24 21:00 05/28/24 20:56 Mirtazapine Tab 15 Mg Tab PO 06/22/24 20:59 7.5 mg HS CHARLEY Administration Ondansetron HCl 4 mg 05/23/24 18:29 05/27/24 05:21 Ondansetron Inj 2 Mg/Ml 2 Ml Vial IV 06/22/24 18:28 4 mg Q6H PRN Administration Nausea And Vomiting Oxybutynin Chloride 2.5 mg 05/23/24 21:00 05/28/24 20:55 Oxybutynin Chloride 5 Mg Tab PO 06/22/24 20:59 2.5 mg QPM CHARLEY Administration Pantoprazole Sodium 40 mg 05/23/24 21:00 05/28/24 20:56 Pantoprazole 40 Mg Tab PO 06/22/24 20:59 40 mg HS CHARLEY Administration Polyethylene Glycol 17 gm 05/24/24 09:00 05/29/24 08:02 Polyethylene (Miralax) 17 Gm Pack PO 06/23/24 08:59 17 gm DAILY CHARLEY Administration Ropinirole HCl 0.25 mg 05/23/24 21:00 05/28/24 20:56 Ropinirole Hcl 0.25 Mg Tablet PO 06/22/24 20:59 0.25 mg HS CHARLEY Administration Senna/Docusate Sodium 1 tab 05/24/24 09:00 05/29/24 08:02 Docusate Sodium/Senna 50/8.6mg Tab PO 06/23/24 08:59 1 tab DAILY CHARLEY Administration Sodium Zirconium Cyclosilicate 10 gm 05/27/24 16:20 05/29/24 11:42 Sodium Zirconium Cyclosilicate 10 Gm Packet PO 06/26/24 16:19 10 gm DAILY@1100 CHARLEY Administration Tramadol HCl 50 mg 05/23/24 18:29 05/29/24 08:58 Tramadol Hcl 50 Mg Tablet PO 06/22/24 18:28 50 mg Q4H PRN Administration Pain 5-10 Vitamin D 125 mcg 05/23/24 21:00 05/28/24 20:55 Cholecalciferol 125 Mcg (5,000 Units) Tab PO 06/22/24 20:59 125 mcg QPM CHARLEY Administration
[2024-05-29] MEDS: FLUCONAZOLE 100 MG TAB PO SCH (17:40)
[2024-05-30 05:53] LABS: Hematocrit (blood only) 30.5 % (37.0-47.0); Hemoglobin 10.4 g/dl (12.0-16.0); Mean Corpuscular Hemoglobin 31.7 pg (25.0-34.0); Mean Corpuscular Hgb Conc 34.1 g/dL (32.0-36.0); Mean Platelet Volume 9.9 fL (9.4-12.4); Platelet Count 264 K/uL (130-400); RDW Coefficient of Variation 13.8 % (11.5-14.5); RDW Standard Deviation 46.1 fL (36.4-46.3); Red Blood Count 3.28 M/uL (4.20-5.40); White Blood Count 9.24 K/ul (4.8-10.8)
[2024-05-30 06:16] LABS: BUN Creatinine Ratio 13.4 (10-20); Creatinine Clr Calc Pharmacy 6.5 ml/min; Potassium 4.9 mmol/L (3.5-5.1)
[2024-05-30] MEDS ORDERED: SODIUM CHLORIDE 0.9% 1,000 ML IV PRN (08:18)
[2024-05-30] MEDS: EPOETIN ALFA 4,000 UNIT/ML VIAL IV ONE (11:32)
--- NOTE | 2024-05-30 11:46 | History & Physical Bridge Note ---
Date of Service May 30, 2024 History & Physical Bridge Note Patient for a temp dialysis catheter insertion today. I have discussed the risks options and benefits of the procedure with the patient. The patient understands the risks options and benefits and agrees to the procedure. I have examined the patient, reviewed the History & Physical and in the interval since the performance of the History & Physical I have noted the following changes of clinical significance: no changes noted
[2024-05-30] MEDS: LIDOCAINE 1% LOCAL 20 ML VIAL ONE (12:35)
[2024-05-30] MEDS: HEPARIN SOD (PORCINE) 5,000 UNITS/ML VIAL ONE (12:35)
--- NOTE | 2024-05-30 12:47 | Operative Report ---
Post Operative Report Pre & Post Diagnosis Operation Date: 06/02/24 12:40 Pre op Dx: End stage renal disease Post op Dx: End stage renal disease I identified the patient and participated in the time-out.: Yes Procedure Operation Date: 06/02/24 12:40 Insertion of right femoral vein temporary dialysis catheter, fluoro for positioning, and ultrasound of right common femoral vein. Surgeon Andi Womack MD Grinder Set Up Operator Jig none Estimated Blood Loss 3 Findings Consistent with Post-Op Diagnosis Specimens none Anesthesia Type Local Complications none Disposition Accompanied Patient To Recovery: No Disposition: Recovery Room Indications This is a 73-year-old female who had a PermCath in place in the left internal jugular vein. The PermCath was removed due to infection. It did have positive cultures for the tip. She is in need of dialysis. Recommended a temporary catheter at this point until her blood cultures are negative. I have discussed the risks options and benefits of the procedure with the patient. The patient understands the risks options and benefits and agrees to the procedure. Description of Procedure Patient was taken to the angio suite and placed in the supine position. The right groin was prepped and draped in a sterile manner. The patient was identified and a timeout performed. Local anesthesia was then administered to the appropriate areas of the right groin. Ultrasound was then used to locate the right common femoral vein. The vein compressed easily, had no filing defects, and was patent. The vein was then punctured under direct ultrasound imaging. A guidewire was then passed centrally under fluoroscopic imaging. A stab wound was then made in the groin and a 24 cm temporary dialysis catheter was passed from the right groin into the distal inferior vena cava. The catheter was then sutured in place using nylon sutures. A sterile dressing was applied to the catheter. The patient left the operation room in satisfactory condition and tolerated the procedure well. All needle and sponge counts were correct at the end of the procedure. I attest to the content of the Intraoperative Record and any orders documented therein. Any exceptions are noted below.
--- NOTE | 2024-05-30 14:06 | Pharmacy Report ---
Pharmacy PK ABX Note - Date of Service May 30, 2024 - Assessment and Plan Assessment 05/30 * Temporary cath placed today and pt currently at HD. * Random vanco level today is 16.3. Will redose with vancomycin 500mg iv x 1 after dialysis today. * Another vanco level will be drawn after the next dialysis session. 05/29 * No HD today, next may be 05/30 with a temporary cath. * Random vanco level today is 17.3, since hasn't had HD, will not redose vancomycin. Will get another vanco level tomorrow with morning labs. * Based on culture results here (cath tip) and from [facility] (exit site), ID rec to d/c cefepime and continue vancomycin + fluconazole. 05/28: * Infected dialysis catheter removed yesterday. Per Nephrology note, patient can go without dialysis for 2-3 days. Anticipate next dialysis either 05/29 or 05/30 if access obtained. Awaiting culture results. Blood cultures no growth x 48 hrs. Cath tip culture pending. * Random Vanco level with AM labs today = 19.3 mcg/ml. Level is therapeutic but at the high end of goal range. * Since no dialysis planned for today, expect limited Vancomycin clearance especially since serum creat is rising. Will hold off on Vancomycin dose for today. * Will obtain random Vanc level tomorrow and re-assess need for dose. 05/26 * Predialysis vanco level today was 21.2mcg/ml, vancomycin 500mg iv x 1 has been ordered to be given after dialysis today. * Blood cultures from 05/23 are negative (still preliminary). 05/25 * 73 year old F receiving cefepime and vancomycin for treatment of HD catheter infection. * Pertinent microbiologic data includes: outpatient blood cultures obtained [employer]. Inpatient blood cultures x2 pending. * ESRD - will dose via level instead of AUC * Unclear when next HD session will be w HD catheter infection. Likely holiday until at least Sunday. * Vanco dosing/levels and HD session(s) * 05/23 PM: Vanco 1500 mg IV x1 * 05/24 AM: Vanco level of 20.8 mcg/mL * 05/25 AM: Vanco level of 16.3 mcg/mL * 05/25 AM: Vanco 500 mg IV x1 dose ordered * Patient-specific non-HD clearance is not insignificant, based on level tren ding down from 20.8 to 16.3 mcg/mL over ~24 hours without HD. Anticipate level may be subtherapeutic tomorrow, assuming similar 24 hour clearance today. Will therefore order small supplemental dose now. Plan Vancomycin * 500mg iv x 1 * Repeat random level prior to next dialysis Pharmacy will continue to follow and will adjust dose/frequency as necessary. Thank you.
[2024-05-30] MEDS: EPOETIN ALFA 4,000 UNIT/ML VIAL IV SCH (14:36)
--- NOTE | 2024-05-30 14:46 | Infectious Disease Progress Nt ---
Date of Service May 30, 2024 Assessment & Plan (1) End stage renal disease on dialysis: (2) Hemodialysis catheter infection: Plan This is a 73-year-old female with past medical history of ESRD requiring on HD via tunneled catheter Sunday since11/2022 ( previously on peritoneal dialysis) , HD catheter malfunction * 2 sp exhange ( 10/2023, 03/2024) pending AV graft presents for possible HD exit site infection. She was referred to the ED from HD for exit site erythema and purulence and IV anitibiotics and vascular evaluaiotn.. Pt is a poor historian, bt endorses recent HD catheter exchange in March. She denies recent HD malfunction, fever, chills, sweats, nausea, vomiting. In the ED afebrile, heart rate 87, RR 18, BP 103/65, O2 sats 96% on room air. Labs: WBC 10.57, BUN 19, creatinine 3.66 procalcitonin 0.51 chest x-ray no active disease. She was started on IV vancomycin and cefepime. ID consulted possible HD site infection. Blood cultures NGTD. Results of wound culture obtained at Dialysis center prior to admission, not available to me. Patient seen during HD. She is comfortable. She offers no complaints. Left HD catheter still in place. Microbiology: Blood cultures 05/23 NG cath tip culture 05/27 3 colonies + corynebacteria issues. Blood culture 05/29 NGTD Prior wound culture ( HD outpt) - yamilet albicans per report Antibiotics Cefepime Vancomycin 05/23ongoing Fluconazole 05/28-ongoing LFTS WNL on 05/23 # Possible exit site TDC infection ( skin erythema and purulent drainage per report,05/23) - No associated bacteremia s - Wound cx obtained on 05/23 at HD ( yamilet albicans per report ) - pending AVG _TDC removed 05/27, cath tip cx + corynebacterium sp # History of HD site catheter malfunction *2 s/p exchange ( 10/2023 and 03/2024) Discussion: No purulence att TDC site on my exam, Erythema noted without tenderness. . It is reassuring that she is not currently bacteremic or fungemic, but given the recurrence of TDC exit site malfunctions per report, agreed with line removal . Exit-site infection cannot be resolved with systemic antibiotics. The TDC was removed 05/27/24 and cath tip cx + corynebacterium sp Wound cx at HD ( 05/23) , yamilet albicans. TTE w/o vegatations. No associated bacteremia here or from BC obtained at HD per report. -On 05/30, a temporary R femoral line placed for continued HP. Plan for new permanent tunneled cath on 06/02. She is s/p removal of L tunneles catheter on 05/27/24, Recommendations Continue fluconazole 200 mg PO daily ( HD dosing for 400mg) qtc on 05/28 ( 474) Continue vancomycin per HD in light of corynebacterium growth( unclear if contaminant, but would treat in her case) Follow up Bc , OK to place subsequent HD tunneled catheter placed using a different site if clear for > 72 hours Anticipate 2 weeks of pathogen targeted Abx, antifungals from removal of line if BC remain sterile. ( 05/27- 06/10) Check LFTs, CBC, BMP, vanco levels on fluconazole and HD dosing of vancomycin ID will sign off. Please call with questions or if 05/29 BC positive. Jase Troy MD, MPH Infectious Disease [facility], [facility] Call [phone] with questions Admission and Anticipated Discharge Date Admission Date: May 23, 2024 Subjective Subsequent visit was provided via telemedicine using two-way real-time interactive telecommunication between the patient and the telemedicine provider. For the duration of the visit, the provider was performing the assessment from a different facility than the patient. This includesuse of bluetooth stethoscope forauscultationperformed by the telepresenter that the telemedicine provider can hear if described in the physical exam. Shipper And Receiving contact information: Please call [facility] Call Center . (Phone Number For Physician Use Only) After establishing a telemedicine visit, patient was: Patient was verified with two unique identifiers Time Spent with Patient: Subsequent => 25 min Seen at HD New R femoral temp HD line in place Physical Exam Physical Exam: General- NAD, chronically ill appearing. Getting HD via femoral site Neck supple HEENT- anicteric sclera Chest- sp removal of L upper chest tunneled catheter; area with a dried scabbed area and mimimal erythema, Not tender, no drainage Abd- soft, not tender, not distended Extremities- Mild LE edema, R femoral line ( new) getting HD Neuro- AAO*3 Psych- cooperative , normal mood. . Results & Data Vital Signs (Past 12 Hours) Vital Signs Temp Pulse Pulse Pulse Resp BP BP 05/30/24 13:30 66 124/66 05/30/24 13:15 66 117/64 05/30/24 13:02 65 110/64 05/30/24 12:56 36.5 C 64 05/30/24 12:30 69 127/74 05/30/24 12:30 68 133/78 05/30/24 12:23 67 127/74 05/30/24 12:16 69 133/78 05/30/24 11:36 36.3 C L 68 20 113/70 05/30/24 07:37 36.2 C L 68 18 05/30/24 07:10 BP Pulse Ox O2 Del Method 05/30/24 13:30 05/30/24 13:15 05/30/24 13:02 05/30/24 12:56 05/30/24 12:30 97 05/30/24 12:30 96 05/30/24 12:23 96 05/30/24 12:16 98 Room Air 05/30/24 11:36 99 Room Air 05/30/24 07:37 105/65 96 Room Air 05/30/24 07:10 Room Air Laboratory Results 05/29/24 15:37 Aerobic Blood Culture - Pending Blood Anaerobic Blood Culture - Pending 05/29/24 15:36 Aerobic Blood Culture - Pending Blood Anaerobic Blood Culture - Pending 05/27/24 15:00 Catheter Tip Culture - Final Catheter Tip, Perm Cathether Corynebacterium species 05/30/24 05/30/24 05/30/24 11:28 07:39 05:20 WBC 9.24 RBC 3.28 L Hgb 10.4 L Hct 30.5 L MCV 93.0 MCH 31.7 MCHC 34.1 RDW Std Deviation 46.1 RDW Coeff of Bethany 13.8 Plt Count 264 MPV 9.9 Sodium 132 L Potassium 4.9 Chloride 96 L Carbon Dioxide 23 Anion Gap 13 H BUN 114 H Creatinine 8.51 H* D Est Cr Clr Drug Dosing 6.5 eGFR 4.58 BUN/Creatinine Ratio 13.4 Glucose 199 H POC Glucose 167 H 176 H Calcium 9.0 Random Vancomycin 16.3 05/29/24 05/29/24 20:17 16:49 WBC RBC Hgb Hct MCV MCH MCHC RDW Std Deviation RDW Coeff of Bethany Plt Count MPV Sodium Potassium Chloride Carbon Dioxide Anion Gap BUN Creatinine Est Cr Clr Drug Dosing eGFR BUN/Creatinine Ratio Glucose POC Glucose 249 H 183 H Calcium Random Vancomycin Medications Administered Home Medications Medication Instructions Recorded Confirmed Last Taken cholecalciferol (vitamin D3) 125 125 mcg PO QPM 04/20/22 05/23/24 05/22/24 mcg (5,000 unit) tablet (Vitamin D3) atorvastatin 40 mg tablet 40 mg PO HS 07/23/22 05/23/24 05/22/24 docusate sodium 100 mg capsule 100 mg PO BID 07/23/22 05/23/24 05/23/24 insulin aspar prot-insulin aspart 40 unit subcut UD 07/23/22 05/23/24 04/08/24 100 unit/mL (70-30) subcutaneous pen (Novolog Mix 70-30FlexPen U-100) isosorbide mononitrate 30 mg 30 mg PO QPM 07/23/22 05/23/24 05/22/24 tablet,extended release 24 hr levothyroxine 50 mcg tablet 50 mcg PO DAILY 07/23/22 05/23/24 05/23/24 metoprolol succinate 50 mg 50 mg PO QPM 07/23/22 05/23/24 05/22/24 tablet,extended release 24 hr duloxetine 20 mg capsule,delayed 20 mg PO QPM 05/18/23 05/23/24 05/22/24 release ropinirole 0.25 mg tablet 0.25 mg PO HS 05/18/23 05/23/24 05/22/24 acetaminophen 325 mg tablet 650 mg PO Q6 PRN TEMP > 100 04/09/24 05/23/24 Unknown amlodipine 5 mg tablet 10 mg PO QPM 04/09/24 05/23/24 05/22/24 calcium acetate 667 mg tablet 1,334 mg PO UD 04/09/24 05/23/24 05/23/24 ferric citrate 210 mg iron tablet 210 mg PO WM 04/09/24 05/23/24 04/08/24 (Auryxia) gabapentin 100 mg capsule 100 mg PO UD 04/09/24 05/23/24 05/21/24 gabapentin 600 mg tablet 600 mg PO QPM 04/09/24 05/23/24 05/22/24 mirtazapine 7.5 mg tablet 7.5 mg PO 04/09/24 05/23/24 05/22/24 ondansetron 4 mg disintegrating 4 mg PO Q6H PRN Nausea And Vomiting 04/09/24 05/23/24 Unknown tablet pantoprazole 40 mg tablet,delayed 40 mg PO 04/09/24 05/23/24 05/22/24 release polyethylene glycol 3350 17 17 g PO [facility] 04/09/24 05/23/24 05/21/24 gram/dose oral powder (Miralax) sennosides 8.6 mg-docusate sodium 1 tab-cap PO 04/09/24 05/23/24 05/22/24 50 mg tablet (Senokot-S) sennosides 8.6 mg-docusate sodium 1 tab-cap PO 04/09/24 05/23/24 05/23/24 50 mg tablet (Senokot-S) insulin lispro 100 unit/mL 1 sliding scale dose subcut 05/21/24 05/23/24 Unknown subcutaneous solution melatonin 5 mg tablet 10 mg PO 05/21/24 05/23/24 05/22/24 oxybutynin chloride 2.5 mg tablet 2.5 mg PO QPM 05/21/24 05/23/24 05/22/24 tramadol 50 mg tablet 50 mg PO Q4H PRN Pain 5-10 05/21/24 05/23/24 05/23/24 acetaminophen 325 mg tablet 650 mg PO Q6 PRN .PAIN 1-4 05/23/24 05/23/24 Unknown albuterol sulfate 2.5 mg/3 mL 2.5 mg inhalation Q4H PRN 05/23/24 05/23/24 Unknown (0.083 %) solution for nebulization Shortness Of Breath Or Wheezing calcium acetate 667 mg tablet 667 mg PO . NEEDED PRN SNACKS 05/23/24 05/23/24 Unknown ciprofloxacin HCl 250 mg tablet 250 mg PO QPM 05/23/24 05/23/2424 protein supplement 1 ea PO BID 05/23/24 05/23/24 05/23/24 AM Active Medications Generic Name Dose Route Start Last Admin Trade Name Deangelo PRN Reason Stop Dose Admin Amlodipine Besylate 10 mg 05/23/24 21:00 05/29/24 20:32 Amlodipine Besylate 5 Mg Tab PO 06/22/24 20:59 10 mg QPM CHARLEY Administration Aspirin 81 mg 05/23/24 21:00 05/29/24 20:34 Aspirin 81 Mg Ectab PO 06/22/24 20:59 81 mg HS CHARLEY Administration Atorvastatin Calcium 40 mg 05/23/24 21:00 05/29/24 20:36 Atorvastatin 40 Mg Tab PO 06/22/24 20:59 40 mg HS CHARLEY Administration Calcium Acetate 1,334 mg 05/26/24 07:30 05/30/24 11:31 Calcium Acetate 667 Mg Cap/Tab PO 06/25/24 07:29 Not Given [id number] CHARLEY Clopidogrel Bisulfate 75 mg 05/23/24 21:00 05/29/24 20:36 Clopidogrel Bisulfate 75 Mg Tab PO 06/22/24 20:59 75 mg QPM CHARLEY Administration Docusate Sodium 100 mg 05/23/24 21:00 05/30/24 08:17 Docusate Sodium 100 Mg Cap PO 06/22/24 20:59 100 mg BID CHARLEY Administration Duloxetine HCl 20 mg 05/23/24 21:00 05/29/24 20:37 Duloxetine Hcl 20 Mg Cap PO 06/22/24 20:59 20 mg QPM CHARLEY Administration Fluconazole 200 mg 05/29/24 17:00 05/29/24 17:40 Fluconazole 100 Mg Tab PO 06/08/24 16:59 200 mg DAILY@1700 CHARLEY Administration Gabapentin 600 mg 05/23/24 21:00 05/29/24 20:34 Gabapentin 600 Mg Tab PO 06/22/24 20:59 600 mg QPM CHARLEY Administration Gabapentin 100 mg 05/26/24 15:00 05/28/24 16:19 Gabapentin 100 Mg Cap PO 06/25/24 14:59 100 mg [email or web address] CHARLEY Administration Insulin Aspart 0 units 05/27/24 16:30 05/30/24 11:31 Insulin Aspart Per Unit Charge SC 06/26/24 16:29 Not Given ACHS CHARLEY Insulin Glargine 12 units 05/27/24 09:00 05/30/24 08:27 Lantus Per Unit Charge SQ 06/26/24 08:59 12 units BID CHARLEY Administration Isosorbide Mononitrate 30 mg 05/23/24 21:00 05/29/24 20:36 Isosorbide [place] Extended Rel 30 Mg Tabcr PO 06/22/24 20:59 30 mg QPM CHARLEY Administration Levothyroxine Sodium 50 mcg 05/24/24 06:30 05/30/24 05:31 Levothyroxine Sodium 50 Mcg Tablet PO 06/23/24 06:29 50 mcg DAILYBB CHARLEY Administration Melatonin 6 mg 05/23/24 21:00 05/29/24 20:31 Melatonin 3 Mg Tab PO 06/22/24 20:59 6 mg HS CHARLEY Administration Metoprolol Succinate 50 mg 05/23/24 21:00 05/29/24 20:34 Metoprolol Succ 50mg Ext Rel Tab PO 06/22/24 20:59 50 mg QPM CHARLEY Administration Mirtazapine 7.5 mg 05/23/24 21:00 05/29/24 20:37 Mirtazapine Tab 15 Mg Tab PO 06/22/24 20:59 7.5 mg HS CHARLEY Administration Ondansetron HCl 4 mg 05/23/24 18:29 05/27/24 05:21 Ondansetron Inj 2 Mg/Ml 2 Ml Vial IV 06/22/24 18:28 4 mg Q6H PRN Administration Nausea And Vomiting Oxybutynin Chloride 2.5 mg 05/23/24 21:00 05/29/24 20:32 Oxybutynin Chloride 5 Mg Tab PO 06/22/24 20:59 2.5 mg QPM CHARLEY Administration Pantoprazole Sodium 40 mg 05/23/24 21:00 05/29/24 20:33 Pantoprazole 40 Mg Tab PO 06/22/24 20:59 40 mg HS CHARLEY Administration Polyethylene Glycol 17 gm 05/24/24 09:00 05/30/24 08:18 Polyethylene (Miralax) 17 Gm Pack PO 06/23/24 08:59 17 gm DAILY CHARLEY Administration Ropinirole HCl 0.25 mg 05/23/24 21:00 05/29/24 20:35 Ropinirole Hcl 0.25 Mg Tablet PO 06/22/24 20:59 0.25 mg HS CHARLEY Administration Senna/Docusate Sodium 1 tab 05/24/24 09:00 05/30/24 08:16 Docusate Sodium/Senna 50/8.6mg Tab PO 06/23/24 08:59 1 tab DAILY CHARLEY Administration Sodium Zirconium Cyclosilicate 10 gm 05/27/24 16:20 05/30/24 11:31 Sodium Zirconium Cyclosilicate 10 Gm Packet PO 06/26/24 16:19 Not Given DAILY@1100 CHARLEY Tramadol HCl 50 mg 05/23/24 18:29 05/30/24 05:31 Tramadol Hcl 50 Mg Tablet PO 06/22/24 18:28 50 mg Q4H PRN Administration Pain 5-10 Vitamin D 125 mcg 05/23/24 21:00 05/29/24 20:35 Cholecalciferol 125 Mcg (5,000 Units) Tab PO 06/22/24 20:59 125 mcg QPM CHARLEY Administration
--- NOTE | 2024-05-30 15:11 | Hospitalist Progress Note ---
Date of Service May 30, 2024 Assessment & Plan (1) Hemodialysis catheter infection: Plan: sent in by outpatient dialysis provider for pus drainage from the dialysis catheter. - Recently replaced tunneled dialysis catheter left upper chest wall on April 15 of this year. - Continue Vancomycin and cefepime - Blood cultures: no growth finalized - Outside culture: yamilet albicans moderate growth - Catheter Tip culture: Corynebacterium Vascular surgery consultation - s/p TDC removal 05/27 - temporary line 05/30, TDC next week - repeat BC 05/29: pending nephrology consulted - tegaderm dressing for TDC - outpatient blood cultures: no growth infectious disease consulted - Continue IV vancomycin. Cefepime d/c per cultures - Monitor BC for 72 hours prior to replacing line at a different site - Anticipate 2-3 weeks of pathogen targeted Abx - continue fluconazole daily - check Echo: no valve vegetation - check qTc: 476 - check LFTs (ordered for AM) (2) End stage renal disease: Plan: [facility] neph[facility] consultation noted - dialysis 05/26 - should be able to handle no dialysis for 3 to 4 days -with hyperkalemia--> continue renal diet, continue Lokelma once daily (3) DM type 2 (diabetes mellitus, type 2): Plan: Home regimen held - NovoLog 70/30 40 units daily, plus sliding scale coverage for significant hyperglycemia Basal bolus insulin BSG ACHS SSI tightened 05/29 Plan chronic stable medical conditions: Hypertensioncontinue amlodipine, metoprolol CADcontinue aspirin, statin, plavix Neuropathy continue Cymbalta and gabapentin Hypothyroidcontinue Synthroid, TSH 1.8 in 10/2023 GERDcontinue PPI mental healthcontinue Remeron dispo: Continued inpatient stay DVT proph: Hold chemical with OR procedure, SCDs Discussed case with Dr. irvin Admission and Anticipated Discharge Date Admission Date: May 23, 2024 Supervising Physician Co-Signing Physician Notes PA Supervision Note: I did not personally see or examine the patient today, but I verified all burnett points of SHE Ac's assessment and plan with the following exceptions/additions: None Subjective Seen at HD New R femoral temp HD line in place No acute complaints besides wanting lunch and wanting to roll over but unable to because of her temporary catheter Review of Systems Review of Systems: All systems reviewed & are unremarkable except as noted in Subjective Physical Exam Physical Exam: General: NAD, VS as above Resp: normal respiratory effort, lungs clear to auscultation CV: RRR, no murmur, Extremities: Moves all extremities, no edema Neuro: A&O x3, Skin: intact, no lesions noted. Small area of erythema just below exit site removal, no drainage noted. dressing coming off - asked RN to echange Results & Data Results & Data Vital Signs (Past 12 Hours) Vital Signs Temp Pulse Pulse Pulse Resp BP BP 05/30/24 14:00 69 115/72 05/30/24 13:45 67 125/71 05/30/24 13:30 66 124/66 05/30/24 13:15 66 117/64 05/30/24 13:02 65 110/64 05/30/24 12:56 97.7 F 64 05/30/24 12:30 69 127/74 05/30/24 12:30 68 133/78 05/30/24 12:23 67 127/74 05/30/24 12:16 69 133/78 05/30/24 11:36 97.3 F L 68 20 113/70 05/30/24 07:37 97.2 F L 68 18 05/30/24 07:10 BP Pulse Ox O2 Del Method 05/30/24 14:00 05/30/24 13:45 05/30/24 13:30 05/30/24 13:15 05/30/24 13:02 05/30/24 12:56 05/30/24 12:30 97 05/30/24 12:30 96 05/30/24 12:23 96 05/30/24 12:16 98 Room Air 05/30/24 11:36 99 Room Air 05/30/24 07:37 105/65 96 Room Air 05/30/24 07:10 Room Air Laboratory Results CBC and chemistry reviewed PG Care Time/CCT Total # of Minutes Spent Total Time Spent with Patient: Total time spent is greater than 50% in coordination of care (as documented) at patient's floor/unit and/or counseling patient: Coding Level of Care Code 10918 SUB INP/OBS CARE 2/35MIN Diagnoses Hemodialysis catheter infection T82.7XXA End stage renal disease N18.6 DM type 2 (diabetes mellitus, type 2) E11.9
[2024-05-30] MEDS: VANCOMYCIN HCL 500 MG in NSS 100mL IV ONE (17:30)
--- NOTE | 2024-05-30 18:03 | Nephrology Progress Note ---
Date of Service May 30, 2024 Assessment & Plan (1) Hemodialysis catheter infection: Plan: Recurrent exit site infection w/ purulent drainage and redness at exit site 05/23. this is the 3rd catheter since october; second DIANN in 6 wks. Woke 05/26 w/ TDC dressing off so likely to be an ongoing issue. recent vaginal yeast infection prior to admission Clinically stable. Blood cxs finalized/negative 05/23 at [facility] and final ES swab w/ heavy growth usual skin vivienne plus moderate growth C albicans, sensis not indicated at [facility]. AVG placement originally planned for 05/29 now deferred. -cath/CVC tip cx w/ corynebacterium 05/27 -replacement CVC 06/02 planned -on fluconazole 200 mg daily po through 06/10 for yeast per ID -on vanco w/ HD through 06/10 for Corynebacterium per ID 05/29 blood cxs pending >will coordinate w/ OP [place] [facility] team >> recommend keeping fingernails short, consideration of non restraint mittens for sleep (even winter mittens) to lower risk of picking again at cath dressing. current tegaderm already irritating her a bit -have ordered tegaderm dressings for TDC moving forward (these also can irritate skin but hope to get through to AVG w/o this issue) as OP -appreciate vascular assistance with lines >>?prophylaxis against vaginal yeast during 6 wks or so until we can get her AVG placed and after >> need to keep in free from infection TText w/ Dr Ng re culture results, dialysis/line/diet plans mutliple times today; we are in agreement. (2) End stage renal disease: Plan: K ok today and s/p dialysis No e/o fluid overload >>monitor for now but may need to start daily lokelma if K unacceptably high > evaluate daily Next HD on 06/02 as access permits/clinical status requires > likely w/ new TDC hgb 10.4 today; s/p 05/26 10K epo, 05/30 gave her 4 K which is acceptable as anticipated epo resistance here (3) Urine culture positive: Plan: had brown foul smelling urine approx 05/19 or 05/20 (does not void daily) w/ no dysuria, urgency, frequency, or constitutional symptoms >> urine cx obtained with a HAT per pt was positive and per OP internet application developer she started cipro po 05/22; cx results not available do not consider this active UTI; would not treat specifically; no current voiding or constitutional sx Admission and Anticipated Discharge Date Admission Date: May 23, 2024 Subjective got temp dialysis cath today R femoral; had HD w/o heparin which ended after 3.5 hr d/t venous chamber clots; had 2L UF. [facility] 05/23 blood cxs finalized as negative. no pain, no n/v, no sob, no edema. Review of Systems 2 Review of Systems: All systems reviewed & are unremarkable except as noted in Subjective Physical Exam 2 Constitutional: well developed (sitting in bed on RA), well nourished and cooperative; no acute distress ENMT: Ears: + hearing impairment Mouth: + dry oral mucous membranes Respiratory: normal respiratory effort Auscultation: lungs clear to auscultation bilaterally and + diminished lung sounds Cardiovascular: Rate/Rhythm: regular rate and regular rhythm Extremities: n o edema Gastrointestinal (Abdomen): Inspection/Auscultation: normal bowel sounds P ercussion/Palpation: abdomen soft; abdomen nontender Musculoskeletal: Extremities: strength 5/5 throughout Skin: no rashes, warm and dry Psychiatric: Orientation: alert and oriented x 3 Insight: + limited insight Results & Data Vital Signs (Past 12 Hours) Vital Signs Temp Pulse Pulse Pulse Pulse Resp BP 05/30/24 17:04 36.8 C 75 18 05/30/24 16:45 36.4 C L 74 74 05/30/24 16:30 79 123/70 05/30/24 16:00 79 99/77 L 05/30/24 15:30 74 112/77 05/30/24 15:00 71 108/65 05/30/24 14:30 69 123/72 05/30/24 14:00 69 115/72 05/30/24 13:45 67 125/71 05/30/24 13:30 66 124/66 05/30/24 13:15 66 117/64 05/30/24 13:02 65 110/64 05/30/24 12:56 36.5 C 64 05/30/24 12:30 69 127/74 05/30/24 12:30 68 133/78 10/11/24 12:23 67 127/74 05/30/24 12:16 69 133/78 05/30/24 11:36 36.3 C L 68 20 05/30/24 07:37 36.2 C L 68 18 05/30/24 07:10 BP BP Pulse Ox O2 Del Method 05/30/24 17:04 96 Room Air 05/30/24 16:45 128/76 05/30/24 16:30 05/30/24 16:00 05/30/24 15:30 05/30/24 15:00 05/30/24 14:30 05/30/24 14:00 05/30/24 13:45 05/30/24 13:30 05/30/24 13:15 05/30/24 13:02 05/30/24 12:56 05/30/24 12:30 97 05/30/24 12:30 96 05/30/24 12:23 96 05/30/24 12:16 98 Room Air 05/30/24 11:36 113/70 99 Room Air 05/30/24 07:37 105/65 96 Room Air 05/30/24 07:10 Room Air Laboratory Results 05/30/24 05:20 05/30/24 05:20
[2024-05-31 07:04] LABS: Albumin Level 3.6 gm/dl (3.4-5.0); Bilirubin,Total 0.2 mg/dl (0.2-1.0); Calcium 9.1 mg/dl (8.6-10.3); Creatinine Clr Calc Pharmacy 9.9 ml/min; Globulin 3.6 gm/dl (2.5-4.0); Potassium 4.8 mmol/L (3.5-5.1); Total Protein 7.2 gm/dl (6.0-8.3)
--- NOTE | 2024-05-31 10:59 | Hospitalist Progress Note ---
Date of Service May 31, 2024 Assessment & Plan (1) Hemodialysis catheter infection: Plan: sent in by outpatient dialysis provider for pus drainage from the dialysis catheter. - Recently replaced tunneled dialysis catheter left upper chest wall on April 15 of this year. - Blood cultures: no growth finalized - Outside culture: yamilet albicans moderate growth - Catheter Tip culture: Corynebacterium Vascular surgery consultation - s/p TDC removal 05/27 - temporary line placed 05/30, TDC next week - repeat BC 05/29: no growth 24 hours nephrology consulted - tegaderm dressing for TDC - outpatient blood cultures: no growth infectious disease consulted - Continue IV vancomycin. Cefepime d/c per cultures - Monitor BC for 72 hours prior to replacing line at a different site - Anticipate 2 weeks of pathogen targeted Abx and fluconazole - continue fluconazole daily - check Echo: no valve vegetation - check qTc: 476 - check LFTs: WNL (2) End stage renal disease: Plan: [facility] consultation noted - dialysis 05/26 - should be able to handle no dialysis for 3 to 4 days - continue renal diet - had been receiving daily lokelma, K 4.8 today, Lokelma held --> reasses daily (3) DM type 2 (diabetes mellitus, type 2): Plan: Home regimen held - NovoLog 70/30 40 units daily, plus sliding scale coverage for significant hyperglycemia Basal bolus insulin BSG ACHS SSI tightened 05/29 Lantus increased 05/31 Plan chronic stable medical conditions: Hypertensioncontinue amlodipine, metoprolol CADcontinue aspirin, statin, plavix Neuropathy continue Cymbalta and gabapentin Hypothyroidcontinue Synthroid, TSH 1.8 in 10/2023 GERDcontinue PPI mental healthcontinue Remeron dispo: Continued inpatient stay DVT proph: Hold chemical with OR procedure, SCDs Admission and Anticipated Discharge Date Admission Date: May 23, 2024 Supervising Physician Co-Signing Physician Notes Attending Attestation - Chart reviewed, care plan d/w SHE Ac. I agree w/ the burnett components of her documentation. Cont IV Vanco + IV fluconazole for tunnel site infection of previous HD catheter. Appreciate ID, nephrology, and vascular surgery assistance. Jose Manuel Reid MD Subjective Patient seen lying in bed. No acute complaints. Can tell me how her TDC site feels indicating that she has been picking at. I have told her to not do this and I provided her with coloring books to keep her occupied. anxious to return back to centre care No acute complaints Review of Systems Review of Systems: All systems reviewed & are unremarkable except as noted in Subjective Physical Exam Physical Exam: General: NAD, VS as above Resp: normal respiratory effort, lungs clear to auscultation CV: RRR, no murmur, Extremities: Moves all extremities, no edema Neuro: A&O x3, Skin: intact, no lesions noted. Small area of erythema just below exit site removal,now starting to scab dressing coming off - asked RN to echange Results & Data Results & Data Vital Signs (Past 12 Hours) Vital Signs Temp Pulse Resp BP Pulse Ox O2 Del Method 05/31/24 07:42 97.5 F L 74 16 121/70 95 Room Air 05/30/24 22:58 Room Air Laboratory Results BMP reviewed BC reviewed POC glucose reviewed PG Care Time/CCT Total # of Minutes Spent Total Time Spent with Patient: Total time spent is greater than 50% in coordination of care (as documented) at patient's floor/unit and/or counseling patient: Coding Level of Care Code 40121 SUB INP/OBS CARE 3/50MIN Diagnoses Hemodialysis catheter infection T82.7XXA End stage renal disease N18.6 DM type 2 (diabetes mellitus, type 2) E11.9
[2024-05-31] MEDS: LANTUS PER UNIT CHARGE SQ SCH (21:05)
[2024-06-01 06:57] LABS: BUN Creatinine Ratio 12.1 (10-20); Calcium 9.4 mg/dl (8.6-10.3); Creatinine Clr Calc Pharmacy 7.2 ml/min; Potassium 5.1 mmol/L (3.5-5.1)
--- NOTE | 2024-06-01 10:16 | Hospitalist Progress Note ---
Date of Service June 01, 2024 Assessment & Plan (1) Hemodialysis catheter infection: Plan: sent in by outpatient dialysis provider for pus drainage from the dialysis catheter. - Recently replaced tunneled dialysis catheter left upper chest wall on April 15 of this year. - Blood cultures: no growth finalized - Outside culture: yamilet albicans moderate growth - Catheter Tip culture: Corynebacterium Vascular surgery consultation - s/p TDC removal 05/27 - temporary line placed 05/30, TDC next week - repeat BC 05/29: no growth 24 hours nephrology consulted - tegaderm dressing for TDC - outpatient blood cultures: no growth infectious disease consulted - Continue IV vancomycin. Cefepime d/c per cultures - Monitor BC for 72 hours prior to replacing line at a different site - Anticipate 2 weeks of pathogen targeted Abx and fluconazole - continue fluconazole daily - check Echo: no valve vegetation - check qTc: 476 - check LFTs: WNL Plan for TDC AM 06/02, ? dialysis to follow and hopeful d/c to [facility] sunday (2) End stage renal disease: Plan: [facility] consultation noted - dialysis 05/26 - should be able to handle no dialysis for 3 to 4 days - continue renal diet - K 5.1, lokelma given today incase unable to have dialysis tomorrow (3) DM type 2 (diabetes mellitus, type 2): Plan: Home regimen held - NovoLog 70/30 40 units daily, plus sliding scale coverage for significant hyperglycemia Basal bolus insulin BSG ACHS SSI tightened 05/29 Lantus increased 05/31 Plan chronic stable medical conditions: Hypertensioncontinue amlodipine, metoprolol CADcontinue aspirin, statin, plavix Neuropathy continue Cymbalta and gabapentin Hypothyroidcontinue Synthroid, TSH 1.8 in 10/2023 GERDcontinue PPI mental healthcontinue Remeron dispo: Continued inpatient stay DVT proph: Hold chemical with OR procedure, SCDs Admission and Anticipated Discharge Date Admission Date: May 23, 2024 Supervising Physician Co-Signing Physician Notes Attending Attestation - Chart reviewed, care plan d/w SHE Ac. I agree w/ the burnett components of her documentation. Replacement dialysis catheter - tentatively planned for 06/02/24. Fluconazole 200 mg daily through 06/10 for yeast per ID. On IV vanco w/ HD through 06/10 for Corynebacterium per ID. Appreciate ID, nephrology, and vascular surgery assistance. Jose Manuel Reid MD Subjective Patient seen lying in bed. No acute complaints, again anxious to return to centre care plan for TDC tomorrow and hopefully dialysis after that Review of Systems Review of Systems: All systems reviewed & are unremarkable except as noted in Subjective Physical Exam Physical Exam: General: NAD, VS as above Resp: normal respiratory effort, lungs clear to auscultation CV: RRR, no murmur, Extremities: Moves all extremities, no edema Neuro: A&O x3, Skin: intact, no lesions noted. left chest dressign c/d/i Results & Data Results & Data Vital Signs (Past 12 Hours) Vital Signs Temp Pulse Resp BP Pulse Ox O2 Del Method 06/01/24 07:09 97.3 F L 68 18 114/65 97 Room Air Laboratory Results bmp reviewed PG Care Time/CCT Total # of Minutes Spent Total Time Spent with Patient: Total time spent is greater than 50% in coordination of care (as documented) at patient's floor/unit and/or counseling patient: Coding Level of Care Code 47386 SUB INP/OBS CARE 2/35MIN Diagnoses Hemodialysis catheter infection T82.7XXA End stage renal disease N18.6 DM type 2 (diabetes mellitus, type 2) E11.9
[2024-06-02] MEDS ORDERED: Nursing to Pharmacy Communication SCH (02:15)
[2024-06-02 05:41] LABS: Hematocrit (blood only) 31.2 % (37.0-47.0); Hemoglobin 10.5 g/dl (12.0-16.0); Mean Corpuscular Hemoglobin 31.5 pg (25.0-34.0); Mean Corpuscular Hgb Conc 33.7 g/dL (32.0-36.0); Mean Corpuscular Volume 93.7 fL (80.0-100.0); Mean Platelet Volume 9.5 fL (9.4-12.4); Platelet Count 294 K/uL (130-400); RDW Standard Deviation 47.2 fL (36.4-46.3); Red Blood Count 3.33 M/uL (4.20-5.40)
[2024-06-02] MEDS: INSULIN ASPART PER UNIT CHARGE SC SCH ×2 (05:55→15:07)
[2024-06-02 06:13] LABS: BUN Creatinine Ratio 12.1 (10-20); Calcium 9.4 mg/dl (8.6-10.3); Potassium 5.7 mmol/L (3.5-5.1)
[2024-06-02] MEDS ORDERED: SODIUM CHLORIDE 0.9% 1,000 ML IV PRN (07:00)
--- NOTE | 2024-06-02 07:51 | History & Physical Bridge Note ---
Date of Service June 02, 2024 History & Physical Bridge Note Patient for insertion of permcath today. I have discussed the risks options and benefits of the procedure with the patient. The patient understands the risks options and benefits and agrees to the procedure. I have examined the patient, reviewed the History & Physical and in the interval since the performance of the History & Physical I have noted the following changes of clinical significance: no changes noted
--- NOTE | 2024-06-02 08:41 | Pre Anesthesia Assessment ---
Date of Service June 02, 2024 Pre Sedation Assessment Vital Signs Temp Pulse Pulse Pulse Resp BP BP 06/02/24 08:22 36.5 C 62 20 126/69 06/02/24 07:46 06/02/24 07:40 36.3 C L 63 17 111/66 06/01/24 19:40 36.3 C L 76 18 131/71 06/01/24 15:13 36.5 C 72 18 122/67 Pulse Ox O2 Del Method 06/02/24 08:22 98 Room Air 06/02/24 07:46 Room Air 06/02/24 07:40 94 Room Air 06/01/24 19:40 96 Room Air 06/01/24 15:13 95 Room Air Cardiovascular RRR, no murmur, no edema Respiratory normal respiratory effort, lungs clear to auscultation Pre-Sedation Airway Assessment Smoking Status: Never smoker Hx Sleep Apnea: No Short, Thick Neck: No Thyromental Distance: > or= 3.5 Finger Breadths Oral Cavity: + WNL Mallampati Class: II ASA: ASA3 NPO Status Date of Last Intake of Fluids: 05/27/24 Time of Last Intake of Fluids: 08:31 Date of Last Intake of Solid Food: 05/26/24 Time of Last Intake of Solid Foods: 21:00 Procedure Planning Contraindications for Sedation: none Current Medications Reviewed: Yes Notes The planned sedation has been discussed with the patient. Informed Consent was obtained. I have identified the patient, determined the appropriateness of sedation and have assessed the patient immediately prior to the procedure. All medicine(s) and interventions are by my order.
[2024-06-02] MEDS: fentaNYL citrate PF 100 MCG/2 ML VIAL ONE (09:05)
[2024-06-02] MEDS: LIDOCAINE 1% LOCAL 20 ML VIAL ONE (09:05)
[2024-06-02] MEDS: MIDAZOLAM HCL 1 MG/ML 2ML VIAL ONE (09:06)
[2024-06-02] MEDS: NALOXONE HCL 0.4 MG/1 ML VIAL/CARP ONE (09:07)
--- NOTE | 2024-06-02 09:15 | Operative Report ---
Post Operative Report Pre & Post Diagnosis Operation Date: 06/02/24 10:20 Pre-Op Diagnosis: End Stage Renal Disease. Post-Op Diagnosis: End Stage Renal Disease. I identified the patient and participated in the time-out.: Yes Procedure Operation Date: 06/02/24 10:20 Actual Procedures p Insertion of Perm Catheter, Right Sublcavian vein Approach, Attempted right internal jugular vein pucture, Ultrasound Localizationof Right Internal Jugular Vein, Fluroroscopy for Positioning, Moderate Sedation 08:44-09:14(Right) - Andi Womack MD Surgeon Andi Womack MD R&D Lab Technician none Estimated Blood Loss 5 Findings Consistent with Post-Op Diagnosis Specimens none Anesthesia Type RN Sedation Complications none Disposition Accompanied Patient To Recovery: No Disposition: Recovery Room Indications This is a 73-year-old female who had infected left internal jugular vein PermCath which was removed. She had a rest which was followed by negative blood cultures. We now recommend insertion of a right internal jugular vein PermCath. I have discussed the risks options and benefits of the procedure with the patient. The patient understands the risks options and benefits and agrees to the procedure. Description of Procedure Patient was taken to the angio suite and placed in the supine position. The right side of the neck and chest wall were prepped and draped in a sterile manner. The patient was identified and a timeout performed. Local anesthesia was then administered to the appropriate areas of the neck and chest wall. Ultrasound was then used to locate the right internal jugular vein. The vein compressed easily, but was small and did have filling defects consistent with some old thrombus.. An attempt was made to puncture the internal jugular vein. The puncture appeared to have arterial flow. The needle was removed and pressure was applied. Ultrasound shows small amount of blood around the internal carotid but no expansion. It was decided at that time to attempt a subclavian. Local anesthetic was administered. The right subclavian was punctured without difficulty. A guidewire was then passed centrally under fluoroscopic imaging. A stab wound was then made in the anterior chest wall and a 19 cm permcath was passed from the stab wound on the chest wall to the puncture site at the infraclavicular area. The puncture site was then dilated till the 14Fr peel away sheath was inserted. The permcath was then inserted through the sheath to a central position in the distal superior vena cava. The peel away sheath was then removed. The catheter was then sutured in place using nylon sutures. The puncture was then closed using a 4-0 Vicryl subcuticular suture. Dermabond was used for a dressing on the puncture site. Both ports aspirated and flushed easily and were then packed with heparin. A sterile dressing was applied to the catheter. The patient left the operation room in satisfactory condition and tolerated the procedure well. All needle and sponge counts were correct at the end of the procedure. I attest to the content of the Intraoperative Record and any orders documented therein. Any exceptions are noted below.
--- NOTE | 2024-06-02 09:16 | Post Anesthesia Assessment ---
Date of Service June 02, 2024 Post Sedation Assessment Vital Signs Temp Pulse Pulse Pulse Pulse Resp BP 06/02/24 09:15 68 16 136/85 06/02/24 09:10 72 16 148/90 H 06/02/24 09:05 69 16 132/89 06/02/24 09:00 68 16 141/90 H 06/02/24 08:55 65 16 137/76 06/02/24 08:50 64 16 137/85 06/02/24 08:45 66 16 137/80 06/02/24 08:22 36.5 C 62 20 126/69 06/02/24 07:46 06/02/24 07:40 36.3 C L 63 17 06/01/24 19:40 36.3 C L 76 18 131/71 06/01/24 15:13 36.5 C 72 18 BP Pulse Ox O2 Del Method O2 Flow Rate 06/02/24 09:15 100 Oxymask 4 06/02/24 09:10 100 Oxymask 6 06/02/24 09:05 99 Oxymask 4 06/02/24 09:00 99 Oxymask 4 06/02/24 08:55 99 Oxymask 4 06/02/24 08:50 100 Oxymask 4 06/02/24 08:45 100 Oxymask 4 06/02/24 08:22 98 Room Air 06/02/24 07:46 Room Air 06/02/24 07:40 111/66 94 Room Air 06/01/24 19:40 96 Room Air 06/01/24 15:13 122/67 95 Room Air Recovery Score Activity: Moves 4 extremities Respiration: Deep Breath/Cough Circulation: +/-20% PreAnes Value Consciousness: Arouseable (by name) Oxygen Saturation: O2 needed for >90% Post Anesthesia Score: 8 Discharge Sedation Level of Care: Fast Track Phase II Post Sedation Plan On clinical assessment, the patient appears to have tolerated the sedation without complications. Patient is recovering as anticipated. Patient will continue to be monitored by nursing and may be discharged when sedation discharge criteria are met per below protocol. Upon Completions of procedure up to 15 minutes continue every 5 minute vital signs and the P.A.R. score; then discharge to a Phase I or Fast Track to Phase II per the following guidelines: * Discharge Patient to appropriate Phase II area if PAR is 8 or greater or return to pre- procedure baseline. The post - procedure orders will be as directed. * If PAR score is less than 8 or not return to pre-procedure baseline then patient will follow Phase I monitoring till PAR is reached for Phase II. The Phase I may be done in procedure room or may call to secure a Phase I area. * If naloxone or flumazenil are used for reversal, hold in Phase I for continued monitoring from when last reversal dose was given for a minimum of 60 minutes or longer pending the nurse and/or physician discretion of patient condition before discharge to Phase II. Please call the Sedation Physician to re-evaluate and complete post-note for discharge to Phase II area. Do NOT discharge from procedure sedation or Phase 1 until post- sedation evaluation note is complete by procedure /sedation MD Sedation Discharge Instructions to be given to the patient at discharge to home.
--- NOTE | 2024-06-02 09:16 | Communication Note ---
Date of Service: June 02, 2024 A right subclavian PermCath had to be placed. We left the groin temporary catheter in place due to the fact that she has had difficulty running right si ded catheters in the past. If she has a good run of dialysis then we will pull the temporary catheter after dialysis.
--- NOTE | 2024-06-02 10:22 | Nephrology Progress Note ---
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 this is the 3rd catheter since october; second DIANN in 6 wks. Woke 05/26 w/ TDC dressing off so likely to be an ongoing issue. recent vaginal yeast infection prior to admission Clinically stable. Blood cxs finalized/negative 05/23 at [facility] and final ES swab w/ heavy growth usual skin vivienne plus moderate growth C albicans, sensis not indicated at [facility]. AVG placement originally planned for 05/29 now deferred. -cath/CVC tip cx w/ corynebacterium 05/27 -on fluconazole 200 mg daily po through 06/10 for yeast per ID -on vanco w/ HD through 06/10 for Corynebacterium per ID Dialysis today for 3.5hrs target UF 2.5 litres. (2) End stage renal disease: Plan: Patient tolerating HD well today. BP is on the lower side. target UF 2.5 litres Admission and Anticipated Discharge Date Admission Date: May 23, 2024 Subjective Patient was seen and examined while on dialysis. She had a PermCath placed 06/02. Review of Systems 2 Constitutional: All other systems were reviewed and negative except as noted in HPI Physical Exam 2 Physical Exam: General exam: Appears comfortable, no acute distress. on oxygen by facemask HEENT: Pupils are equal and reactive to light Neck: No JVD, neck is supple trachea is midline Respiratory system: Clear breath sounds bilaterally. Gastrointestinal: Abdomen is soft, non distended, non tender, bowel sounds are present CVS: Regular rate and rhythm. No murmurs, rubs or gallops Musculoskeletal: No joint or muscle tenderness Extremities: Non tender, no edema, peripheral pulses are present Neuro: Oriented, no tremors, no focal neurological deficits Skin: No rashes Results & Data Vital Signs (Past 12 Hours) Vital Signs Temp Pulse Pulse Pulse Resp BP BP 06/02/24 09:15 68 16 136/85 06/02/24 09:10 72 16 148/90 H 06/02/24 09:05 69 16 132/89 06/02/24 09:00 68 16 141/90 H 06/02/24 08:55 65 16 137/76 06/02/24 08:50 64 16 137/85 06/02/24 08:45 66 16 137/80 06/02/24 08:22 36.5 C 62 20 126/69 06/02/24 07:46 06/02/24 07:40 36.3 C L 63 17 111/66 Pulse Ox O2 Del Method O2 Flow Rate 06/02/24 09:15 100 Oxymask 4 06/02/24 09:10 100 Oxymask 6 06/02/24 09:05 99 Oxymask 4 06/02/24 09:00 99 Oxymask 4 06/02/24 08:55 99 Oxymask 4 06/02/24 08:50 100 Oxymask 4 06/02/24 08:45 100 Oxymask 4 06/02/24 08:22 98 Room Air 06/02/24 07:46 Room Air 06/02/24 07:40 94 Room Air Laboratory Results 06/02/24 05:18 06/02/24 05:18 WBC 11.50 H RBC 3.33 L MCV 93.7 MCH 31.5 MCHC 33.7 RDW Std Deviation 47.2 H RDW Coeff of Bethany 14.0 Plt Count 294 MPV 9.5
--- NOTE | 2024-06-02 10:22 | Pharmacy Report ---
Pharmacy PK ABX Note - Date of Service June 02, 2024 - Assessment and Plan Assessment 05/30 * New permcath placed today * Scheduled for HD today * Random vanco level today is 15.0. Will redose with vancomycin 500mg IV x 1 after dialysis today. * Per ID: Anticipate 2 weeks of pathogen targeted Abx, antifungals from removal of line if BC remain sterile. (05/27- 06/10) 05/30 * Temporary cath placed today and pt currently at HD. * Random vanco level today is 16.3. Will redose with vancomycin 500mg iv x 1 after dialysis today. * Another vanco level will be drawn after the next dialysis session. 05/29 * No HD today, next may be 05/30 with a temporary cath. * Random vanco level today is 17.3, since hasn't had HD, will not redose vancomycin. Will get another vanco level tomorrow with morning labs. * Based on culture results here (cath tip) and from [facility] (exit site), ID rec to d/c cefepime and continue vancomycin + fluconazole. 05/28: * Infected dialysis catheter removed yesterday. Per Nephrology note, patient can go without dialysis for 2-3 days. Anticipate next dialysis either 05/29 or 05/30 if access obtained. Awaiting culture results. Blood cultures no growth x 48 hrs. Cath tip culture pending. * Random Vanco level with AM labs today = 19.3 mcg/ml. Level is therapeutic but at the high end of goal range. * Since no dialysis planned for today, expect limited Vancomycin clearance especially since serum creat is rising. Will hold off on Vancomycin dose for today. * Will obtain random Vanc level tomorrow and re-assess need for dose. 05/26 * Predialysis vanco level today was 21.2mcg/ml, vancomycin 500mg iv x 1 has been ordered to be given after dialysis today. * Blood cultures from 05/23 are negative (still preliminary). 05/25 * 73 year old F receiving cefepime and vancomycin for treatment of HD catheter infection. 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 Inpatient blood cultures x2 pending. * ESRD - will dose via level instead of AUC * Unclear when next HD session will be w HD catheter infection. Likely holiday until at least Sunday. * Vanco dosing/levels and HD session(s) * 10/4 PM: Vanco 1500 mg IV x1 * 105 AM: Vanco level of 20.8 mcg/mL * 6 AM: Vanco level of 16.3 mcg/mL * 106 AM: Vanco 500 mg IV x1 dose ordered * Patient-specific non-HD clearance is not insignificant, based on level trending down from 20.8 to 16.3 mcg/mL over ~24 hours without HD. Anticipate level may be subtherapeutic tomorrow, assuming similar 24 hour clearance today. Will therefore order small supplemental dose now. Plan * Vancomycin 500mg IV x 1 after dialysis * recheck level prior to next HD session * Fluconazole 200 mg PO daily Pharmacy will continue to follow and will adjust dose/frequency as necessary. Thank you.
[2024-06-02] MEDS: HEPARIN SOD (PORCINE) 5,000 UNITS/ML VIAL ONE (14:14)
--- NOTE | 2024-06-02 15:31 | Hospitalist Progress Note ---
Date of Service June 02, 2024 Assessment & Plan (1) Hemodialysis catheter infection: Plan: sent in by outpatient dialysis provider for pus drainage from the dialysis catheter on 05/23/2024. - Recently replaced tunneled dialysis catheter left upper chest wall on April 15 of this year. - Blood cultures: no growth finalized - Outside culture: yamilet albicans moderate growth - Catheter Tip culture: Corynebacterium Vascular surgery consultation - s/p TDC removal 05/27 - temporary line placed 05/30 - Perm Cath placed 06/02, removal of temporary line removed 06/02 following dialysis session. - repeat BC 05/29: no growth 48 hours nephrology consulted - tegaderm dressing for TDC - outpatient blood cultures: no growth infectious disease consulted - Continue IV vancomycin. Cefepime d/c per cultures - Monitor BC for 72 hours prior to replacing line at a different site - Anticipate 2 weeks of pathogen targeted Abx and fluconazole - continue fluconazole daily - check Echo: no valve vegetation - check qTc: 476 - check LFTs: WNL Reviewed CBC 06/02: WBC 11.5 Reviewed BMP 06/02: Na 126, K 5.7, Creatinine 9.16 AM CBC, BMP (2) End stage renal disease: Plan: [facility] consultation noted - dialysis 06/02 - continue renal diet - K 5.7, lokelma given 06/01 AM BMP (3) DM type 2 (diabetes mellitus, type 2): Plan: Home regimen held - NovoLog 70/30 40 units daily, plus sliding scale coverage for significant hyperglycemia A1c 03/2024: 6.6% Basal bolus insulin BSG ACHS SSI tightened 05/29 Lantus increased 05/31 Plan chronic stable medical conditions: Hypertensioncontinue amlodipine, metoprolol CADcontinue aspirin, statin, plavix Neuropathy continue Cymbalta and gabapentin Hypothyroidcontinue Synthroid, TSH 1.8 in 10/2023 GERDcontinue PPI mental healthcontinue Remeron dispo: hopeful discharge to [facility] 06/02. DVT proph: Hold chemical with OR procedure, SCDs Admission and Anticipated Discharge Date Admission Date: May 23, 2024 Subjective Patient seen and examined this afternoon following her perm catheter insertion and dialysis session. Patient reported to be in pain around the catheter site. Admitted to fatigue. She denied any additional complaints. She is looking forward to return back to her facility. Physical Exam 2 Constitutional: WD/WN, vitals as above Eyes: PERRL, conjunctivae normal, anicteric sclerae Respiratory: normal respiratory effort, lungs clear to auscultation Cardiovascular: RRR, no murmur, no edema Psychiatric: A+Ox3, euthymic affect Results & Data Results & Data Vital Signs (Past 12 Hours) Vital Signs Temp Pulse Pulse Pulse Resp BP BP 06/02/24 13:58 36.4 C L 75 18 143/74 H 06/02/24 13:50 36.5 C 73 06/02/24 13:30 74 106/69 06/02/24 13:00 74 99/65 L 06/02/24 12:30 73 110/58 L 06/02/24 12:00 72 110/66 06/02/24 11:30 72 103/61 06/02/24 11:00 72 105/63 06/02/24 10:30 69 98/57 L 06/02/24 10:00 67 91/56 L 06/02/24 09:38 65 102/77 06/02/24 09:24 36.3 C L 67 06/02/24 09:15 68 16 136/85 06/02/24 09:10 72 16 148/90 H 06/02/24 09:05 69 16 132/89 06/02/24 09:00 68 16 141/90 H 06/02/24 08:55 65 16 137/76 06/02/24 08:50 64 16 137/85 06/02/24 08:45 66 16 137/80 06/02/24 08:22 36.5 C 62 20 126/69 06/02/24 07:46 06/02/24 07:40 36.3 C L 63 17 BP Pulse Ox O2 Del Method O2 Flow Rate 06/02/24 13:58 96 Room Air 06/02/24 13:50 127/76 06/02/24 13:30 06/02/24 13:00 06/02/24 12:30 06/02/24 12:00 06/02/24 11:30 06/02/24 11:00 06/02/24 10:30 06/02/24 10:00 06/02/24 09:38 06/02/24 09:24 06/02/24 09:15 100 Oxymask 4 06/02/24 09:10 100 Oxymask 6 06/02/24 09:05 99 Oxymask 4 06/02/24 09:00 99 Oxymask 4 06/02/24 08:55 99 Oxymask 4 06/02/24 08:50 100 Oxymask 4 06/02/24 08:45 100 Oxymask 4 06/02/24 08:22 98 Room Air 06/02/24 07:46 Room Air 06/02/24 07:40 111/66 94 Room Air Laboratory Results 06/02/24 05:18 06/02/24 05:18 PG Care Time/CCT Total # of Minutes Spent Total Time Spent with Patient: Total time spent is greater than 50% in coordination of care (as documented) at patient's floor/unit and/or counseling patient: Coding Level of Care Code 34990 SUB INP/OBS CARE 235MIN Diagnoses Infection of hemodialysis catheter, initial encounter T82.7XXA Encounter type: initial encounter End stage renal disease N18.6 DM type 2 (diabetes mellitus, type 2) E11.9 (1) Hemodialysis catheter infection Encounter type: initial encounter Qualified Code(s): T82.7XXA - Infection and inflammatory reaction due to other cardiac and vascular devices, implants and grafts, initial encounter
[2024-06-02] MEDS: VANCOMYCIN HCL 500 MG in NSS 100mL IV SCH (16:14)
[2024-06-03 07:13] VITALS: RESP 18
[2024-06-03 08:18] LABS: Hematocrit (blood only) 32.2 % (37.0-47.0); Hemoglobin 10.7 g/dl (12.0-16.0); Mean Corpuscular Hemoglobin 31.3 pg (25.0-34.0); Mean Corpuscular Hgb Conc 33.2 g/dL (32.0-36.0); Mean Corpuscular Volume 94.2 fL (80.0-100.0); Mean Platelet Volume 9.3 fL (9.4-12.4); Platelet Count 266 K/uL (130-400); RDW Coefficient of Variation 14.5 % (11.5-14.5); RDW Standard Deviation 47.8 fL (36.4-46.3); Red Blood Count 3.42 M/uL (4.20-5.40); White Blood Count 8.18 K/ul (4.8-10.8)
[2024-06-03 09:02] LABS: Calcium 9.5 mg/dl (8.6-10.3); Creatinine Clr Calc Pharmacy 9.3 ml/min; Potassium 4.7 mmol/L (3.5-5.1)
--- NOTE | 2024-06-03 09:30 | Nephrology Progress Note ---
Date of Service June 03, 2024 Assessment & Plan (1) Hemodialysis catheter infection: Plan: Recurrent exit site infection w/ purulent drainage and redness at exit site 05/23. this is the 3rd catheter since october; second DIANN in 6 wks. Woke 05/26 w/ TDC dressing off so likely to be an ongoing issue. -cath/CVC tip cx w/ corynebacterium 05/27 -on fluconazole 200 mg daily po through 06/10 for yeast per ID -on vanco w/ HD through 06/10 for Corynebacterium per ID tolerated HD well yesterday. labs are better. no indication for HD today. Will do HD tomorrow as outpatient (2) End stage renal disease: Plan: Patient tolerated HD well yesterday. BP is stable. Next HD will be tomorrow as outpatient. Please request vascular surgery to remove groin catheter and then discharge patient if ok with primary team. Admission and Anticipated Discharge Date Admission Date: May 23, 2024 Subjective Seen for ESRD. She tolerated HD well yesterday. No SOB, nausea or vomiting. Still has groin line. Review of Systems 2 Constitutional: All other systems were reviewed and negative except as noted in HPI Physical Exam 2 Physical Exam: General exam: Appears comfortable, no acute distress. HEENT: Pupils are equal and reactive to light Neck: No JVD, neck is supple trachea is midline Respiratory system: Clear breath sounds bilaterally. Gastrointestinal: Abdomen is soft, non distended, non tender, bowel sounds are present CVS: Regular rate and rhythm. No murmurs, rubs or gallops Musculoskeletal: No joint or muscle tenderness Extremities: Non tender, no edema, peripheral pulses are present Neuro: Oriented, no tremors, no focal neurological deficits Skin: No rashes Results & Data Vital Signs (Past 12 Hours) Vital Signs Temp Pulse Pulse Resp BP Pulse Ox O2 Del Method 06/03/24 07:45 Room Air 06/03/24 07:13 36.8 C 73 18 121/71 99 Room Air 06/03/24 03:02 36.6 C 70 20 116/68 97 Room Air 06/02/24 22:26 36.6 C 81 18 133/69 94 Room Air Laboratory Results 06/03/24 07:37 06/03/24 07:37 WBC 8.18 RBC 3.42 L MCV 94.2 MCH 31.3 MCHC 33.2 RDW Std Deviation 47.8 H RDW Coeff of Bethany 14.5 Plt Count 266 MPV 9.3 L (1) Hemodialysis catheter infection Encounter type: initial encounter Qualified Code(s): T82.7XXA - Infection and inflammatory reaction due to other cardiac and vascular devices, implants and grafts, initial encounter
--- NOTE | 2024-06-03 11:25 | Discharge Summary ---
Discharge Summary Date of Service June 03, 2024 Principal Dx & Hospital Course #1 = Principal Diagnosis (1) Hemodialysis catheter infection: sent in by outpatient dialysis provider for pus drainage from the dialysis catheter on 05/23/2024. - Recently replaced tunneled dialysis catheter left upper chest wall on April 15 of this year. - Blood cultures: no growth finalized - Outside culture: yamilet albicans moderate growth - Catheter Tip culture: Corynebacterium Vascular surgery consultation - s/p TDC removal 05/27 - repeat BC 05/29: no growth 48 hours - temporary line placed 05/30 - Perm Cath placed 06/02 - removal of temporary line removed 06/03 nephrology consulted - tegaderm dressing for TDC - outpatient blood cultures: no growth infectious disease consulted - Continue IV vancomycin with dialysis sessions up on discharge. - Discharged on Fluconazole daily for additional 9 days to make 14 week course. - Echo: no valve vegetation - qTc: 476 - LFTs: WNL CBC/BMP stable day of discharge. (2) End stage renal disease: [facility] neph[facility] consultation noted - dialysis 06/02 - continue renal diet - patient will continue outpatient dialysis sessions per nephrology (3) DM type 2 (diabetes mellitus, type 2): Home regimen resumed upon discharge. A1c 03/2024: 6.6% Plan chronic stable medical conditions: Hypertensioncontinue amlodipine, metoprolol CADcontinue aspirin, statin, plavix Neuropathy continue Cymbalta and gabapentin Hypothyroidcontinue Synthroid, TSH 1.8 in 10/2023 GERDcontinue PPI mental healthcontinue Remeron Discharged to [facility] 06/03 Admission HPI Per Admitting Provider 73-year-old white female with a history of end-stage renal disease on hemodialysis. She recently underwent replacement of tunneled dialysis catheter in the left upper anterior chest wall on April 15 of this year. She now has surrounding erythema although she is asymptomatic except for local tenderness. She is being admitted for antibiotic therapy and vascular evaluation to see if the catheter needs removed and replaced Discharge Exam Constitutional WD/WN, vitals as above Eyes PERRL, conjunctivae normal, anicteric sclerae Respiratory normal respiratory effort, lungs clear to auscultation Cardiovascular RRR, no murmur, no edema Psychiatric A+Ox3, euthymic affect Discharge Plan Discharge Items Patient Disposition: Transfer [facility] Reason For Visit: INFECTED TDC Discharge Diagnosis: Infected TDC Activity: Resume your previous activity Non-emergency contact: Primary Care Provider and [facility] [employer] Coordinator Call non-emergency contact if: you have any medication questions, your symptoms worsen and you have a fever Follow-up/Referrals: [facility] [Primary Care Provider] - Diet: Carb Consistent or DM2 and Dialysis Renal Fluids: 1200ml (5 cups) Addtl Attending Provider Instructions: Ms. Mathias, You were recently hospitalized for an infection in your dialysis catheter site. You had this replaced while you were hospitalized and were treated with antibio tics and antifungals appropriately. Please see recommendations below regarding your discharge. 1. Please take Fluconazole daily for the next 9 days. Your first dose will be this evening. 2. You will receive IV vancomycin with dialysis for the next 7 days. 3. You may resume previous outpatient medications. 4. Please follow up with your PCP within 1-2 weeks of discharge. 5. Please follow up with nephrology outpatient. If you develop any fever chills, drainage at catheter site, chest pain, or shortness of breath please report to the ER for further care. Sincerely, Darleen Encinas PA-C Pending Studies at Discharge: No Stand-Alone Forms: My [facility] Skilled Items Patient informed of condition?: Yes DNR: Yes Discharge Level of Care: Skilled Communicable Disease: No Discharge Prognosis: Stable Lines: None Urinary Catheter: No Medications and DC Order Prescriptions: New fluconazole [Diflucan] 100 mg Tablet 200 mg PO DAILY@1700 Qty: 9 0RF clopidogrel 75 mg Tablet 75 mg PO QPM Qty: 30 0RF polyethylene glycol 3350 [Miralax] 17 gram Powder In Packet 17 g PO DAILY Qty: 30 0RF aspirin 81 mg Tablet,Delayed Release (Dr/Ec) 81 mg PO HS Qty: 30 0RF vancomycin 1,000 mg recon soln 1,000 mg IV .with dialysis Qty: 10 0RF Continued ropinirole 0.25 mg tablet 0.25 mg PO HS duloxetine 20 mg capsule,delayed release(DR/EC) 20 mg PO QPM cholecalciferol (vitamin D3) [Vitamin D3] 125 mcg (5,000 unit) Tablet 125 mcg PO QPM metoprolol succinate 50 mg tablet extended release 24 hr 50 mg PO QPM insulin asp prt-insulin aspart [Novolog Mix 70-30FlexPen U-100] 100 unit/mL (70-30) insulin pen 40 unit SUBCUT UD Rx Instructions: give 40 units subcutaneously in the morning every //Sun/Sun give 40 units subcutaneously one time a day every Sun/Sun/Sun *med on hold 05/29/24399 to 05/30/24 0359 atorvastatin 40 mg tablet 40 mg PO HS isosorbide mononitrate 30 mg tablet extended release 24 hr 30 mg PO QPM levothyroxine 50 mcg tablet 50 mcg PO DAILY Rx Instructions: *med on hold from 05/29/24399 to 05/29/24 1600 docusate sodium 100 mg Capsule 100 mg PO BID insulin lispro 100 unit/mL Solution 1 sliding scale dose SUBCUT UD Rx Instructions: if BS 350-400=8 units; 401-450=12 units; 451-500=16 units; 501-550=18 units; recheck BS in 2 hours, 551-1000-20 units; recheck BS in 1 hour, report results to MD/INSIDE [employer], subcutaneous every shift for blood sugars >350 *on hold from 05/29/24399 to 05/30/24 035 melatonin 5 mg Tablet 10 mg PO HS oxybutynin chloride 2.5 mg Tablet 2.5 mg PO QPM tramadol 50 mg tablet 50 mg PO Q4H PRN (Reason: Pain 5-10) amlodipine 5 mg tablet 10 mg PO QPM gabapentin 100 mg capsule 100 mg PO UD Rx Instructions: take in afternoon of SUNDAY,SUNDAY,SUNDAY'S med on hold from 0400 05/29/24 to 1600 05/29/24 gabapentin 600 mg tablet 600 mg PO QPM pantoprazole 40 mg tablet,delayed release (DR/EC) 40 mg PO HS calcium acetate 667 mg Tablet 1,334 mg PO UD Rx Instructions: give 2 cap by mouth with meals med on hold for doses from 05/29/240 to 05/29/24 1600 Auryxia 210 mg iron Tablet 210 mg PO WM Rx Instructions: give 1 tablet by mouth with meals *med on hold for doses from 05/29/240 to 05/29/24 1600 polyethylene glycol 3350 [Miralax] 17 gram/dose Powder 17 g PO AMHS Rx Instructions: med on hold 05/29/24399 to 10/10/24 0400 mirtazapine 7.5 mg tablet 7.5 mg PO HS ondansetron 4 mg Tablet,Disintegrating 4 mg PO Q6H PRN (Reason: Nausea And Vomiting) acetaminophen 325 mg Tablet 650 mg PO Q6 MDD 3G PRN (Reason: TEMP > 100) sennosides-docusate sodium [Senokot-S] 8.6-50 mg Tablet 1 tab-cap PO UD Rx Instructions: GIVE EVERY MORNING AND BEDTIME OF TUE/THURS/SAT/SUN 0830 & 2029 med on hold 05/29/240 to 05/29/24399 sennosides-docusate sodium [Senokot-S] 8.6-50 mg Tablet 1 tab-cap PO UD Rx Instructions: GIVE 1 TABLET 2 TMES A DAY EVERY MON/WED/FRI 0600,2029 med on hold 05/29/240 to 05/29/240 albuterol sulfate 2.5 mg /3 mL (0.083 %) solution for nebulization 2.5 mg inhalation Q4H PRN (Reason: Shortness Of Breath Or Wheezing) protein supplement Liquid 1 ea PO BID Rx Instructions: 30 ML DOSE calcium acetate 667 mg Tablet 667 mg PO . NEEDED PRN (Reason: SNACKS) acetaminophen 325 mg Tablet 650 mg PO Q6 MDD 3G PRN (Reason: .PAIN 1-4) Held ciprofloxacin HCl 250 mg tablet 250 mg PO QPM Hold Instructions: Resume on 06/12/24. until seen by PCP Rx Instructions: TAKE FOR 7 DAYS...START 05/22/24 Discharge Orders: Discharge Order (Routine); Ordered 06/03/24 Ordered By: Darleen Brand/Other Patient Handouts: Central Line Infections Admission Data Admit Date/Time: 05/23/24 15:35 Attending Provider: Ashish Barraza Admit Provider: Efrain Loaiza Primary Care Provider: [facility] Other Providers: Efrain Loaiza; Bozena Farias; Alonzo Sorenson; Nia Mcgrath; Timmy Chavez; Haleigh Bocanegra; Andi Womack; Azul Gonzalez; Kendra Strange; Angeles Garcia; Jase Troy; Anahi Dillard; Shauna Fenton Other Interventions: Discharge Summary Assessment (RN) Last Done: 06/03/24 12:21 Hospital Stay Data Consultations 05/23/24 13:45 ED Decision to Admit Stat 05/23/24 15:42 Consult Nephrology Routine Consult Vascular Surgery Routine 05/26/24 09:23 Consult Infectious Diseases Routine Procedures Performed Operation Date: 06/02/24 10:20 Actual Procedures p Insertion of Perm Catheter, Right Internal Jugular Approach, Ultrasound Localizationof Right Internal Jugular Vein, Fluroroscopy for Positioning, Moderate Sedation 08:44-09:14(Right) - Andi Womack MD Diagnostic Imagining Performed 05/30/24 12:02 EV cvc insert non tunnel Routine US EV guide vascular access Routine 06/02/24 07:16 EV cvc insrt tunnel wo prt/philosophy instructor Routine US EV guide vascular access Routine Pending Results Patient Have Any Pending Studies at Discharge: No Discharge Instructions Given to Patient (Per Discharging Provider) Ms. Mathias, Colin were recently hospitalized for an infection in your dialysis catheter site. You had this replaced while you were hospitalized and were treated with antibiotics and antifungals appropriately. Please see recommendations below regarding your discharge. 1. Please take Fluconazole daily for the next 9 days. Your first dose will be this evening. 2. You will receive IV vancomycin with dialysis for the next 7 days. 3. You may resume previous outpatient medications. 4. Please follow up with your PCP within 1-2 weeks of discharge. 5. Please follow up with nephrology outpatient. If you develop any fever chills, drainage at catheter site, chest pain, or shortness of breath please report to the ER for further care. Sincerely, Darleen Encinas PA-C Supervising Physician Co-Signing Physician Notes During face to face encounter, I obtained a brief physical examination, discussed hospital stay with patient and discharge instructions with patient. I discussed discharge plan of care with ARIANE Encinas. I reviewed above note and agree with it except for the following: Catheter line infection. The catheter was removed. Will continue vancomycin during dialysis. Patient will also continue with fluconazole as an outpatient. Total Time Total Time Spent Total Time Spent (In Minutes): 45 Total Time Includes: Examination of the Patient, Discharge Planning, Medication Reconciliation and Communication With Other Providers Coding Level of Care Code 09309 INP/OBS DISCH >30 MIN Diagnoses Infection of hemodialysis catheter, initial encounter T82.7XXA Encounter type: initial encounter End stage renal disease N18.6 DM type 2 (diabetes mellitus, type 2) E11.9
[2024-06-03 11:36] VITALS: TEMP 98.2
[2024-06-03 11:50] VITALS: BP 132/82; PULSE 75; O2SAT 98
== END 2024-06-03 14:51 | DRG 314 ==
LOC: SUATTDRO → ED 12:17 → SUATTDRO 15:35 → EDINP 15:35 → 3N 18:26